=== PATIENT | male | born 1955 | race Hispanic/Latino ===

== ENCOUNTER 2017-09-12 14:37 | Inpatient (IN) | payer MEDICARE ==
[2017-09-12 16:16] LABS: BASO # 0.1 K/uL (0.0-0.2); BASO % 0.6 % (0.0-2.0); EOS # 0.2 K/uL (0.0-0.7); HEMOGLOBIN 15.3 g/dL (12.0-18.0); LYMPH # 0.9 K/uL (1.0-4.3); LYMPH % 10.5 % (20.0-40.0); MEAN CELL VOLUME 83.2 fl (80.0-94.0); MEAN CORPUSCULAR HEMOGLOBIN 27.5 pg (27.0-31.0); MEAN PLATELET VOLUME 9.5 fl (7.2-11.7); MONO # 1.2 K/uL (0.0-0.8); MONO % 13.1 % (0.0-10.0); NEUT # 6.5 K/uL (1.8-7.0); NEUT % 73.8 % (50.0-75.0); RBC 5.58 Mil/uL (4.40-5.90); RED CELL DISTRIBUTION WIDTH 21.5 % (11.5-14.5); WHITE BLOOD COUNT 8.8 K/uL (4.8-10.8)
--- NOTE | 2017-09-12 16:37 | ED PDOC ---
HPI: General Adult Time Seen by Provider: 09/12/17 14:40 Chief Complaint (Nursing): Weakness/Neurological Deficit Chief Complaint (Provider): Weakness History Per: Patient History/Exam Limitations: no limitations Onset/Duration Of Symptoms: Days (x1 week) Current Symptoms Are (Timing): Still Present Additional Complaint(s): 62 y/o male with a PMHx of hepatitis B, renal insuffieincy, blood clots dvt pe pn xarelto, with ?pafib, systolic failure (EF in past 39%), liver transplant , DVT, and chronic kidney disease presenting for evaluation of generalized weakness x1 week. Patient called 911 today because he couldnt get up from the toilet seat due to weakness. He denies syncope. Patient reports feeling weak and states its hard to move. He denies any vomiting, but reports mild dry cough , mild diarrhea, and decreased PO intake. Of note, patient was recently admitted to [facility] for CHF. pt denies cp or sob. the sob, he states is chronic. PMD: Dr Ley in [place] Past Medical History Reviewed: Historical Data Vital Signs: Last Vital Signs Temp 97.7 F 09/19/17 15:44 Pulse 56 L 09/19/17 15:49 Resp 20 09/19/17 15:44 BP 113/66 09/19/17 15:44 Pulse Ox 97 09/19/17 15:44 - Medical History PMH: CHF, Deep Vein Thrombosis, Hypercholesterolemia, Pulmonary Embolism, Chronic Kidney Disease Other PMH: Renal Insufficiency, Systolic Failure - Surgical History Other surgeries: Liver Transplant - Family History Family History: States: Unknown Family Hx - Social History Current smoker - smoking cessation education provided: No Alcohol: None Drugs: Denies - Home Medications Home Medications: Ambulatory Orders Medication Instructions Recorded Alprazolam [Xanax] 0.5 mg PO BID PRN 09/12/17 Atorvastatin [Lipitor] 10 mg PO HS 09/12/17 Entecavir [Baraclude] 0.5 mg PO Q48H 09/12/17 Isosorbide Mononitrate [Imdur] 60 mg PO DAILY 09/12/17 Ranitidine HCl [Zantac] 150 mg PO DAILY 09/12/17 Rivaroxaban [Xarelto] 15 mg PO HS 09/12/17 Tacrolimus [Prograf] 0.5 mg PO Q12 09/12/17 Torsemide [Demadex] 100 mg PO BID 09/12/17 Zolpidem [Ambien] 5 mg PO HS PRN 09/12/17 hydrALAZINE [Apresoline] 25 mg PO Q8 09/12/17 - Allergies Allergies/Adverse Reactions: Allergies Allergy/AdvReac Type Severity Reaction Status Date / Time No Known Allergies Allergy Verified 09/12/17 14:42 Review of Systems ROS Statement: Except As Marked, All Systems Reviewed And Found Negative Constitutional: Positive for: Weakness. Negative for: Fever Respiratory: Positive for: Cough. Negative for: Sputum Gastrointestinal: Positive for: Diarrhea. Negative for: Vomiting Physical Exam - Reviewed Nursing Documentation Reviewed: Yes Vital Signs Reviewed: Yes - Physical Exam Appears: Positive for: No Acute Distress (chronically ill appearing) Head Exam: Positive for: ATRAUMATIC, NORMAL INSPECTION, NORMOCEPHALIC Skin: Positive for: Normal Color, Warm, Dry. Negative for: Rash Eye Exam: Positive for: EOMI, Normal appearance, PERRL ENT: Positive for: Normal ENT Inspection Neck: Positive for: Normal, Painless ROM, Supple Cardiovascular/Chest: Positive for: Regular Rate, Rhythm. Negative for: Murmur Respiratory: Positive for: Decreased Breath Sounds, Crackles (slight). Negative for: Accessory Muscle Use, Respiratory Distress Gastrointestinal/Abdominal: Positive for: Bowel Sounds, Soft, Other (multiple abdominal scars). Negative for: Tenderness Back: Positive for: Normal Inspection. Negative for: L CVA Tenderness, R CVA Tenderness, Vertebral Tenderness Extremity: Positive for: Normal ROM. Negative for: Pedal Edema, Deformity Neurologic/Psych: Positive for: Alert, Oriented (x3). Negative for: Motor/ Sensory Deficits - Laboratory Results Result Diagrams: 09/18/17 04:00 09/18/17 05:15 - ECG O2 Sat by Pulse Oximetry: 94 (RA) Pulse Ox Interpretation: Normal - Critical Care Total Time (In Min): 45 Medical Decision Making Medical Decision Making: Plan: generalized weakness rule out electrlyte abnormality, rule out infection -BNP -EKG -CMP -Troponin I -CBC -CXR -Glucose, POC -Reevaluation EKG shows atrial flutter with slow ventricular response at 46 bpm 16:41 CXR FINDINGS: LUNGS: There is patient rotation to the right. The lungs are well inflated. There is an apparent opacity in the right pericardiac region. PLEURA: There is right pleural thickening. No significant left pleural effusion identified, no pneumothorax apparent. CARDIOVASCULAR: There is severe cardiomegaly. OSSEOUS STRUCTURES: No significant abnormalities. VISUALIZED UPPER ABDOMEN: Normal. OTHER FINDINGS: Air-fluid level in the right lower lobe could represent a large hiatal hernia. IMPRESSION: Limited portable examination with patient rotation to the right. No active pulmonary disease. Severe cardiomegaly. Apparent opacity in the right paracardiac region could represent a hiatal hernia however focal consolidation cannot be excluded. PA and lateral radiographs are recommended for further evaluation. 17:55 Labs reviewed and found significant for acute renal failure, initial potassium normal, elevated Troponin, elevated pro-BNP. Dr. Arriaga med service made aware of findings. -Renal consult -Cardiology consult repeat chemistry shows low Potassium. EKG shows afib at 46 bpm. 18:[address] Tovar, cardiology sales professional bilingual. Recommends patient be given aspirin and admitted to telemetry. 18:25 Upon review of old records, patient was discharged from [facility] on 08/25 and told to stop Lasix. Patient is currently on Xarelto. 18:[address] Barraza renal covering Dr Givens regarding case. states to give K with gentle hydration. Spoke to Dr. Martin. Requesting repeat vitals. Dr. Allen, covering Dr. Tovar, at patient's bedside. 19:[address] Martin water pump operator regarding case. he states pt not ICU candidate.Patient will be admitted to telemetry. 19:10 BUN/creatinine indicates patient is slightly dehydrated which is consistent with patient's history of decreased PO intake. pt aware of admission to telemetry. Scribe Attestation: Documented by Agus Mcfarland, acting as a scribe for Yari Huddleston MD. Provider Scribe Attestation: All medical record entries made by the Scribe were at my direction and personally dictated by me. I have reviewed the chart and agree that the record accurately reflects my personal performance of the history, physical exam, medical decision making, and the department course for this patient. I have also personally directed, reviewed, and agree with the discharge instructions and disposition. Disposition - Clinical Impression Clinical Impression: Generalized muscle weakness, Acute on chronic systolic (congestive) heart failure, Chronic kidney disease, stage IV (severe) - Patient ED Disposition Is Patient to be Admitted: Yes Counseled Patient/Family Regarding: Studies Performed, Diagnosis - Disposition Disposition Time: 18:05 Condition: STABLE - Pt Status Changed To: Hospital Disposition Of: Inpatient - Admit Certification Admit to Inpatient:: After my assessment, the patient will require hospitalization for at least two midnights. This is because of the severity of symptoms shown, intensity of services needed, and/or the medical risk in this patient being treated as an outpatient.
[2017-09-12 16:50] LABS: ALB/GLOB RATIO 1.1 (1.0-2.1); ALBUMIN 4.6 g/dL (3.5-5.0); CALCIUM 9.7 mg/dL (8.4-10.2); TROPONIN I 0.134 ng/mL (0.00-0.120)
--- NOTE | 2017-09-12 16:53 | RAD ---
Date of service: 09/12/2017 HISTORY: body pain COMPARISON: No prior. FINDINGS: LUNGS: There is patient rotation to the right. The lungs are well inflated. There is an apparent opacity in the right pericardiac region. PLEURA: There is right pleural thickening. No significant left pleural effusion identified, no pneumothorax apparent. CARDIOVASCULAR: There is severe cardiomegaly. OSSEOUS STRUCTURES: No significant abnormalities. VISUALIZED UPPER ABDOMEN: Normal. OTHER FINDINGS: Air-fluid level in the right lower lobe could represent a large hiatal hernia. IMPRESSION: Limited portable examination with patient rotation to the right. No active pulmonary disease. Severe cardiomegaly. Apparent opacity in the right paracardiac region could represent a hiatal hernia however focal consolidation cannot be excluded. PA and lateral radiographs are recommended for further evaluation.
[2017-09-12] MEDS ORDERED: Oxycodone/Acetaminophen 5/325 mg Tab PO ONE (17:16)
[2017-09-12 18:06] LABS: ALB/GLOB RATIO 1.1 (1.0-2.1); ALBUMIN 4.3 g/dL (3.5-5.0); CALCIUM 9.5 mg/dL (8.4-10.2)
[2017-09-12] MEDS ORDERED: Potassium Chloride 20 mEq ER Tab PO ONE ×2 (18:18→18:23)
[2017-09-12] MEDS ORDERED: Oxycodone/Acetaminophen 5/325 mg Tab ONE (18:21)
[2017-09-12 19:01] LABS: ABG ALLEN TEST YES; ARTERIAL BLOOD GAS O2 SAT 98.7 % (95-98); ARTERIAL BLOOD GAS PCO2 31 mm/Hg (35-45); ARTERIAL BLOOD GAS PH 7.55 (7.35-7.45); ARTERIAL BLOOD GAS PO2 75 mm/Hg (80-100); ARTERIAL BLOOD GAS TCO2 28.1 mmol/L (22-28)
[2017-09-12 19:31] LABS: SQUAMOUS EPITHIAL 1 /hpf (0-5); URINE BACTERIA FEW (<OCC); URINE BILIRUBIN NEGATIVE (NEGATIVE); URINE BLOOD NEGATIVE (NEGATIVE); URINE CLARITY SLIGHTY-CLOUDY (Clear); URINE COLOR YELLOW (YELLOW); URINE GLUCOSE (UA) NEG (Normal); URINE LEUKOCYTE ESTERASE NEG Leu/uL (Negative); URINE PROTEIN 30 mg/dL (NEGATIVE)
[2017-09-12] MEDS: KCL 40MEQ/NS 1L 1,000 ML IV SCH (20:06)
--- NOTE | 2017-09-12 20:15 | CP.PCM.CON ---
History of Present Illness - History of Present Illness History of Present Illness: Cardiology consult coverage for Dr Tovar Patient is a 62 year old male with PMH chronic systolic dysfunction (unknown EF , followed at [facility]), chronic renal failure, HTN, previous liver transplant who presents with dyspnea weakness. the patient had a recent prolonged hospital staty at [facility], and was discharged about 2 weeks ago. He developed progressive weakness, and was brought to the ER. He is dyspneic at rest. The patient is seen in the ER. he appears dyspneic at rest. Review of Systems - Constitutional Constitutional: Weakness - EENT Eyes: absent: As Per HPI, Blind Spots, Blurred Vision, Change in Vision, Decreased Night Vision, Diplopia, Discharge, Dry Eye, Exophthalmos, Floaters, Irritation, Itchy Eyes, Loss of Peripheral Vision, Pain, Photophobia, Requires Corrective Lenses, Sees Flashes, Spots in Vision, Tunnel Vision, Other Visual Disturbances, Loss of Vision, Other Ears: absent: As Per HPI, Decreased Hearing, Ear Discharge, Ear Pain, Tinnitus, Abnormal Hearing, Disequilibrium, Dizziness, Other Nose/Mouth/Throat: absent: As Per HPI, Epistaxis, Nasal Congestion, Nasal Discharge, Nasal Obstruction, Nasal Trauma, Nose Pain, Post Nasal Drip, Sinus Pain, Sinus Pressure, Bleeding Gums, Change in Voice, Dental Pain, Dry Mouth, Dysphagia, Halitosis, Hoarsness, Lip Swelling, Mouth Lesions, Mouth Pain, Odynophagia, Sore Throat, Throat Swelling, Tongue Swelling, Facial Pain, Neck Pain, Neck Mass, Other - Cardiovascular Cardiovascular: Dyspnea, Pedal Edema - Respiratory Respiratory: Dyspnea - Gastrointestinal Gastrointestinal: absent: As Per HPI, Abdominal Pain, Belching, Bloating, Change in Bowel Habits, Change in Stool Character, Coffee Ground Emesis, Constipation, Cramping, Diarrhea, Dyspepsia, Dysphagia, Early Satiety, Excessive Flatus, Fecal Incontinence, Heartburn, Hematemesis, Hematochezia, Loose Stools, Melena, Nausea, Odynophagia, Temesmus, Vomiting, Other - Genitourinary Genitourinary: absent: As Per HPI, Change in Urinary Stream, Difficulty Urinating, Dysuria, Flank Pain, Hematuria, Pyuria, Nocturia, Urinary Incontinence, Urinary Frequency, Urinary Hesitance, Urinary Urgency, Voiding Freq/Small Amts, Freq UTI, Hx Renal/Bladder Calculi, Hx /Renal Surgery, Bladder Distension, Other - Musculoskeletal Musculoskeletal: absent: As Per HPI, Abnormal Gait, Arthralgias, Atrophy, Back Pain, Deformity, Joint Swelling, Limited Range of Motion, Loss of Height, Muscle Cramps, Muscle Weakness, Myalgias, Neck Pain, Numbness, Radiating Pain into Limb, Stiffness, Tingling, Other - Integumentary Integumentary: absent: As Per HPI, Acne, Alopecia, Bleeding Lesions, Change in Hair, Change in Nails, Change in Pigmentation, Changing Lesions, Dry Skin, Erythema, Furuncle, Hirsutism, Lesions, New Lesions, Non-Healing Lesions, Photosensitivity, Pruritus, Rash, Skin Pain, Skin Ulcer, Sores, Striae, Swelling , Unusual Bruising, Wounds, Jaundice, Other - Neurological Neurological: absent: As Per HPI, Abnormal Gait, Abnormal Hearing, Abnormal Movements, Abnormal Speech, Behavioral Changes, Burning Sensations, Confusion, Convulsions, Disequilibrium, Dizziness, Numbness, Focal Weakness, Frequent Falls , Headaches, Lack of Coordination, Loss of Vision, Memory Loss, Paresthesias, Radicular Pain, Restless Legs, Sensory Deficit, Syncope, Tingling, Tremor, Vertigo, Weakness, Other Visual Disturbances, Other - Psychiatric Psychiatric: absent: As Per HPI, Abnormal Sleep Pattern, Anhedonia, Anxiety, Auditory Hallucinations, Behavioral Changes, Change in Appetite, Change in Libido, Confusion, Depression, Difficulty Concentrating, Hallucinations, Homicidal Ideation, Hopelessness, Irritability, Memory Loss, Mood Swings, Panic Attacks, Paranoia, Suicidal Ideation, Visual Hallucinations, Tactile Hallucinations, Other - Endocrine Endocrine: absent: As Per HPI, Change in Body Appearance, Change in Libido, Cold Intolorance, Deepening of Voice, Excessive Sweating, Fatigue, Flushing, Heat Intolorance, Increase in Ring/Shoe/Hat Size, Palpitations, Polydipsia, Polyphagia, Polyuria, Other - Hematologic/Lymphatic Hematologic: absent: As Per HPI, Easy Bleeding, Easy Bruising, Lymphadenopathy, Other Past Patient History - Past Social History Alcohol: None Drugs: Denies - CARDIAC Hx Cardiac Disorders: Yes - PULMONARY Hx Pulmonary Embolism: Yes - RENAL Hx Chronic Kidney Disease: Yes - HEMATOLOGICAL/ONCOLOGICAL Hx Hepatitis B: Yes Other/Comment: dvt - MUSCULOSKELETAL/RHEUMATOLOGICAL Hx Musculoskeletal Disorders: Yes - GASTROINTESTINAL Other/Comment: Hx liver transplant - GENITOURINARY/GYNECOLOGICAL Hx Genitourinary Disorders: Yes - PSYCHIATRIC Hx Substance Use: No - SURGICAL HISTORY Hx Liver Transplant: Yes (1998) - ANESTHESIA Hx Anesthesia: Yes Meds Allergies/Adverse Reactions: Allergies Allergy/AdvReac Type Severity Reaction Status Date / Time No Known Allergies Allergy Verified 09/12/17 14:42 - Medications Medications: Current Medications Oral Electrolytes (Kcl 40meq/ 0.9% 1l) 1,000 mls @ 75 mls/hr IV .[id number] SHAKIR Last Admin: 09/12/17 20:06 Dose: 75 mls/hr Physical Exam - Constitutional Appears: Chronically Ill - Head Exam Head Exam: NORMAL INSPECTION - Eye Exam Eye Exam: Normal appearance - ENT Exam ENT Exam: Mucous Membranes Dry - Neck Exam Neck exam: Negative for: Lymphadenopathy - Respiratory Exam Respiratory Exam: Decreased Breath Sounds - Cardiovascular Exam Cardiovascular Exam: Irregular Rhythm, JVD - GI/Abdominal Exam GI & Abdominal Exam: Diminished Bowel Sounds - Rectal Exam Rectal Exam: Deferred - Extremities Exam Extremities exam: Positive for: pedal edema - Back Exam Back exam: NORMAL INSPECTION - Neurological Exam Neurological exam: Alert, Oriented x3 - Psychiatric Exam Psychiatric exam: Normal Affect - Skin Skin Exam: Normal Color Results - Vital Signs Recent Vital Signs: Last Vital Signs Temp 97.5 F L 09/12/17 19:44 Pulse 53 L 09/12/17 19:44 Resp 18 09/12/17 19:44 BP 130/51 L 09/12/17 19:44 Pulse Ox 94 L 09/12/17 19:26 - Labs Result Diagrams: 09/12/17 16:00 09/12/17 16:59 Labs: Laboratory Results - last 24 hr 09/12/17 09/12/17 09/12/17 14:58 16:00 16:00 WBC 8.8 RBC 5.58 Hgb 15.3 Hct 46.4 MCV 83.2 MCH 27.5 MCHC 33.0 RDW 21.5 H Plt Count 226 MPV 9.5 Neut % (Auto) 73.8 Lymph % (Auto) 10.5 L [place] % (Auto) 13.1 H Eos % (Auto) 2.0 Baso % (Auto) 0.6 Neut # (Auto) 6.5 Lymph # (Auto) 0.9 L [place] # (Auto) 1.2 H Eos # (Auto) 0.2 Baso # (Auto) 0.1 pCO2 pO2 HCO3 ABG pH ABG Total CO2 ABG O2 Saturation ABG Base Excess Prudencio Test ABG Potassium A-a O2 Difference Glucose Lactate FiO2 Sodium 136 Potassium 3.8 Chloride 89 L Carbon Dioxide 25 Anion Gap 26 H BUN 172 H* Creatinine 3.7 H Est GFR ( Amer) 20 Est GFR (Non-Af Amer) 17 POC Glucose (mg/dL) 128 H Random Glucose 128 H Calcium 9.7 Total Bilirubin 3.2 H AST 54 ALT 27 Alkaline Phosphatase 319 H Troponin I 0.1340 H* NT-Pro-B Natriuret Pep 12670 H Total Protein 8.8 H Albumin 4.6 Globulin 4.2 H Albumin/Globulin Ratio 1.1 Arterial Blood Potassium Urine Color Urine Clarity Urine pH Ur Specific [place] Urine Protein Urine Glucose (UA) Urine Ketones Urine Blood Urine Nitrate Urine Bilirubin Urine Urobilinogen Ur Leukocyte Esterase Urine RBC (Auto) Urine Microscopic WBC Ur Squamous Epith Cells Urine Bacteria 09/12/17 09/12/17 09/12/17 16:59 18:58 19:00 WBC RBC Hgb Hct MCV MCH MCHC RDW Plt Count MPV Neut % (Auto) Lymph % (Auto) [place] % (Auto) Eos % (Auto) Baso % (Auto) Neut # (Auto) Lymph # (Auto) [place] # (Auto) Eos # (Auto) Baso # (Auto) pCO2 31 L pO2 75 L HCO3 29.0 H ABG pH 7.55 H ABG Total CO2 28.1 H ABG O2 Saturation 98.7 H ABG Base Excess 5.2 H Prudencio Test Yes ABG Potassium 2.6 L A-a O2 Difference 36.0 Glucose 130 H Lactate 1.1 FiO2 21.0 Sodium 136 132.0 Potassium 2.9 L Chloride 89 L 91.0 L Carbon Dioxide 25 Anion Gap 25 H BUN 165 H* Creatinine 4.1 H Est GFR ( Amer) 18 Est GFR (Non-Af Amer) 15 POC Glucose (mg/dL) Random Glucose 131 H Calcium 9.5 Total Bilirubin 2.9 H AST 43 ALT 28 Alkaline Phosphatase 337 H Troponin I NT-Pro-B Natriuret Pep Total Protein 8.3 H Albumin 4.3 Globulin 3.9 Albumin/Globulin Ratio 1.1 Arterial Blood Potassium 2.6 L Urine Color Yellow Urine Clarity Slighty-cloudy Urine pH 6.0 Ur Specific [place] 1.011 Urine Protein 30 Urine Glucose (UA) Neg Urine Ketones Negative Urine Blood Negative Urine Nitrate Negative Urine Bilirubin Negative Urine Urobilinogen 2.0 Ur Leukocyte Esterase Neg Urine RBC (Auto) < 1 Urine Microscopic WBC 2 Ur Squamous Epith Cells 1 Urine Bacteria Few H - EKG Data EKG Interpreted by: Myself Assessment & Plan (1) Acute on chronic systolic (congestive) heart failure Assessment and Plan: patient appears to have decompensated heart failure. he would benefit from inotropic support. I recommend dobu[place] drip at [facility] [place]. check echocardiogram renal consult consider transfer to [facility]. Status: Acute (2) Chronic atrial fibrillation Assessment and Plan: would stop Xarelto, can give heparin Status: Acute (3) Hypokalemia Assessment and Plan: replete K, but monitor given creatinine. Status: Acute
--- NOTE | 2017-09-12 23:02 | CP.CCUPN ---
CCU Subjective - Physician Review Subjective (Free Text): ICU Consultation: 59M with PMH HEp B, CKD, PE/ DVT, Liver transplantation 20 yrs ago, remains on immunosuppressive therapy, last known EF 39%, admitted today with c/o generalized weakness and progressive SOB at rest and BRIGGS. Denies any recent chest discomfort, dizziness, palpitations, diaphoresis, n/v, nor any recent fevers, chills, cough. In ER, noted to be bradycardic in AFib/Flutter with HR 46-50, initially hypotensive on the 1st set of vitals, but subsequently normotensive after repeat checks. He denies any recent dysuria, but mentions decreased urine output and was able to provide a urine sample in the ER. Patient states he was discharged from [facility] on 08/29 after hospitalization for CHF / "Fluid Retention." Other vitals and I/O's reviewed. No fever spikes nor any low grade temps noted. BP range for systolic has been 130-120's today, SPO2 95% on RA. ROS: No other pertinent negs or positives on 10+ system review PMSFH: All other Nursing and physician documentation reviewed to date; no new pertinent info noted relevant to current medical problems. Allergies: NKDA Home MEDS: Xanax, Lipitor, Baraclude, Apresoline, Imdur, Zantac, Xarelto, Prograf, Demedex, Ambien EXAM- HEENT: no icterus, no gaze preference, Pupils 3 mm and reactive. NECK: + JVD at 30 degrees, supple, carotids equal upstroke bilat/no bruits CHEST: decreased BS bases, no wheezes audible HEART: regular, distant, dinh S1S2, no rubs or murmurs ABD: soft, mild distention, no tympany, no palp tenderness, BS hypoactive EXT: + Bilat leg edema; no peripheral/ digital cyanosis, no calf tenderness or palpable cords, distal pulses intact and symmetrical. NEURO: no focal motor deficits SKIN: no rashes, warm and dry. LABS: 7.55/ 31 / 75 on RA Lactate= 1.1 WBC= 8.8 HGB= 15.3 PLTs= 226K Gj=598 K= 2.9 CL=89 HCO3= 25 BUN/Cr= 165/4.1 BS= 131 CXR: (my interp)- cardiomegaly with bibasilar haziness and effusions bilaterally, possible retrocardiac infiltrate with air b-gram. EKG: A fib 46/min with T inversions inferolateral leads with fusion beats (my interp). IMPRESSION / MAJOR PROBLEMS NOW: 1. Uremia with Acute on CKD with Hypokalemia, 2' Dehydration and recent Diuresis 2. R/o ischemic Cardiomyopathy / ACS / Subacute- Acute [place] 3. Acute Resp Insufficiency 2' decompensated Cardiomyopathy, r/o DDysfx. 4. Paroxysmal versus chronic A Fib, already on AC. 5. H/o DVT / PTE on AC. 6. h/o Liver Trsp on Immunosuppression, no clinical evidence of chronic rejection, nor suspicion for Sepsis/ Severe Sepsis. PLAN: 1. Cautious IVF hydration, ECHO for re-assessment of LVEF, and R heart function ; r/o Pericardial effusion. 2. Check Coags, hold Xarelto for now given present low CrCl voiding its use. 3. Serial Trops. 4. Consider CT Chest. 5. Does not appear to need acute [employer], cautious K supplementation, and IVFs. 6. If he fails to respond to treatment, transfer to ICU. 7. Contact [facility] PMD for possible acceptance there for further mgmt. CCU Objective - Vital Signs / Intake & Output Vital Signs (Last 4 hours): Vital Signs Temp Pulse Resp BP Pulse Ox 09/12/17 20:13 50 L 16 120/72 95 09/12/17 19:44 97.5 F L 53 L 18 130/51 L 09/12/17 19:26 94 L 09/12/17 18:49 97.5 F L 53 L 18 130/51 L 95 Intake and Output (Last 8hrs): Intake & Output 09/12/17 09/12/17 09/12/17 06:59 14:59 22:59 Weight 253 lb - Medications Active Medications: Active Medications Generic Name Dose Route Start Last Admin Trade Name Freq PRN Reason Stop Dose Admin Oral Electrolytes 1,000 mls @ 75 mls/hr 09/12/17 18:30 09/12/17 20:06 Kcl 40meq/ 0.9% 1l IV 75 mls/hr .[id number] SHAKIR Administration - Patient Studies Lab Studies: Lab Studies 09/12/17 09/12/17 09/12/17 Range/Units 19:00 18:58 16:59 WBC (4.8-10.8) K/uL RBC (4.40-5.90) Mil/uL Hgb (12.0-18.0) g/dL Hct (35.0-51.0) % MCV (80.0-94.0) fl MCH (27.0-31.0) pg MCHC (33.0-37.0) g/dL RDW (11.5-14.5) % Plt Count (130-400) K/uL MPV (7.2-11.7) fl Neut % (Auto) (50.0-75.0) % Lymph % (Auto) (20.0-40.0) % [place] % (Auto) (0.0-10.0) % Eos % (Auto) (0.0-4.0) % Baso % (Auto) (0.0-2.0) % Neut # (Auto) (1.8-7.0) K/uL Lymph # (Auto) (1.0-4.3) K/uL [place] # (Auto) (0.0-0.8) K/uL Eos # (Auto) (0.0-0.7) K/uL Baso # (Auto) (0.0-0.2) K/uL pCO2 31 L (35-45) mm/Hg pO2 75 L (80-100) mm/Hg HCO3 29.0 H (21-28) mmol/L ABG pH 7.55 H (7.35-7.45) ABG Total CO2 28.1 H (22-28) mmol/L ABG O2 Saturation 98.7 H (95-98) % ABG Base Excess 5.2 H (-2.0-3.0) mmol/L Prudencio Test Yes ABG Potassium 2.6 L (3.6-5.2) mmol/L A-a O2 Difference 36.0 mm/Hg Glucose 130 H (75-110) mg/dL Lactate 1.1 (0.7-2.1) mmol/L FiO2 21.0 % Sodium 132.0 136 (132-148) mmol/l Potassium 2.9 L (3.6-5.0) MMOL/L Chloride 91.0 L 89 L (98-107) mmol/L Carbon Dioxide 25 (22-30) mmol/L Anion Gap 25 H (10-20) BUN 165 H* (9-20) mg/dl Creatinine 4.1 H (0.8-1.5) mg/dl Est GFR ( Amer) 18 Est GFR (Non-Af Amer) 15 POC Glucose (mg/dL) (65-110) mg/dL Random Glucose 131 H (75-110) mg/dL Calcium 9.5 (8.4-10.2) mg/dL Total Bilirubin 2.9 H (0.2-1.3) mg/dl AST 43 (17-59) U/L ALT 28 (21-72) U/L Alkaline Phosphatase 337 H (38-126) U/L Troponin I (0.00-0.120) ng/mL NT-Pro-B Natriuret Pep (0-900) pg/ml Total Protein 8.3 H (6.3-8.2) G/DL Albumin 4.3 (3.5-5.0) g/dL Globulin 3.9 (2.2-3.9) gm/dL Albumin/Globulin Ratio 1.1 (1.0-2.1) Arterial Blood Potassium 2.6 L (3.6-5.2) mmol/L Urine Color Yellow (YELLOW) Urine Clarity Slighty-cloudy (Clear) Urine pH 6.0 (5.0-8.0) Ur Specific [place] 1.011 (1.003-1.030) Urine Protein 30 (NEGATIVE) mg/dL Urine Glucose (UA) Neg (Normal) mg/dL Urine Ketones Negative (NEGATIVE) mg/dL Urine Blood Negative (NEGATIVE) Urine Nitrate Negative (NEGATIVE) Urine Bilirubin Negative (NEGATIVE) Urine Urobilinogen 2.0 (0.2-1.0) mg/dL Ur Leukocyte Esterase Neg (Negative) [place]/uL Urine RBC (Auto) < 1 (0-3) /hpf Urine Microscopic WBC 2 (0-5) /hpf Ur Squamous Epith Cells 1 (0-5) /hpf Urine Bacteria Few H (<OCC) 09/12/17 09/12/17 09/12/17 Range/Units 16:00 16:00 14:58 WBC 8.8 (4.8-10.8) K/uL RBC 5.58 (4.40-5.90) Mil/uL Hgb 15.3 (12.0-18.0) g/dL Hct 46.4 (35.0-51.0) % MCV 83.2 (80.0-94.0) fl MCH 27.5 (27.0-31.0) pg MCHC 33.0 (33.0-37.0) g/dL RDW 21.5 H (11.5-14.5) % Plt Count 226 (130-400) K/uL MPV 9.5 (7.2-11.7) fl Neut % (Auto) 73.8 (50.0-75.0) % Lymph % (Auto) 10.5 L (20.0-40.0) % [place] % (Auto) 13.1 H (0.0-10.0) % Eos % (Auto) 2.0 (0.0-4.0) % Baso % (Auto) 0.6 (0.0-2.0) % Neut # (Auto) 6.5 (1.8-7.0) K/uL Lymph # (Auto) 0.9 L (1.0-4.3) K/uL [place] # (Auto) 1.2 H (0.0-0.8) K/uL Eos # (Auto) 0.2 (0.0-0.7) K/uL Baso # (Auto) 0.1 (0.0-0.2) K/uL pCO2 (35-45) mm/Hg pO2 (80-100) mm/Hg HCO3 (21-28) mmol/L ABG pH (7.35-7.45) ABG Total CO2 (22-28) mmol/L ABG O2 Saturation (95-98) % ABG Base Excess (-2.0-3.0) mmol/L Prudencio Test ABG Potassium (3.6-5.2) mmol/L A-a O2 Difference mm/Hg Glucose (75-110) mg/dL Lactate (0.7-2.1) mmol/L FiO2 % Sodium 136 (132-148) mmol/l Potassium 3.8 (3.6-5.0) MMOL/L Chloride 89 L (98-107) mmol/L Carbon Dioxide 25 (22-30) mmol/L Anion Gap 26 H (10-20) BUN 172 H* (9-20) mg/dl Creatinine 3.7 H (0.8-1.5) mg/dl Est GFR ( Amer) 20 Est GFR (Non-Af Amer) 17 POC Glucose (mg/dL) 128 H (65-110) mg/dL Random Glucose 128 H (75-110) mg/dL Calcium 9.7 (8.4-10.2) mg/dL Total Bilirubin 3.2 H (0.2-1.3) mg/dl AST 54 (17-59) U/L ALT 27 (21-72) U/L Alkaline Phosphatase 319 H (38-126) U/L Troponin I 0.1340 H* (0.00-0.120) ng/mL NT-Pro-B Natriuret Pep 54338 H (0-900) pg/ml Total Protein 8.8 H (6.3-8.2) G/DL Albumin 4.6 (3.5-5.0) g/dL Globulin 4.2 H (2.2-3.9) gm/dL Albumin/Globulin Ratio 1.1 (1.0-2.1) Arterial Blood Potassium (3.6-5.2) mmol/L Urine Color (YELLOW) Urine Clarity (Clear) Urine pH (5.0-8.0) Ur Specific [place] (1.003-1.030) Urine Protein (NEGATIVE) mg/dL Urine Glucose (UA) (Normal) mg/dL Urine Ketones (NEGATIVE) mg/dL Urine Blood (NEGATIVE) Urine Nitrate (NEGATIVE) Urine Bilirubin (NEGATIVE) Urine Urobilinogen (0.2-1.0) mg/dL Ur Leukocyte Esterase (Negative) [place]/uL Urine RBC (Auto) (0-3) /hpf Urine Microscopic WBC (0-5) /hpf Ur Squamous Epith Cells (0-5) /hpf Urine Bacteria (<OCC) Laboratory Results - last 24 hr 09/12/17 09/12/17 09/12/17 14:58 16:00 16:00 WBC 8.8 RBC 5.58 Hgb 15.3 Hct 46.4 MCV 83.2 MCH 27.5 MCHC 33.0 RDW 21.5 H Plt Count 226 MPV 9.5 Neut % (Auto) 73.8 Lymph % (Auto) 10.5 L [place] % (Auto) 13.1 H Eos % (Auto) 2.0 Baso % (Auto) 0.6 Neut # (Auto) 6.5 Lymph # (Auto) 0.9 L [place] # (Auto) 1.2 H Eos # (Auto) 0.2 Baso # (Auto) 0.1 pCO2 pO2 HCO3 ABG pH ABG Total CO2 ABG O2 Saturation ABG Base Excess Prudencio Test ABG Potassium A-a O2 Difference Glucose Lactate FiO2 Sodium 136 Potassium 3.8 Chloride 89 L Carbon Dioxide 25 Anion Gap 26 H BUN 172 H* Creatinine 3.7 H Est GFR ( Amer) 20 Est GFR (Non-Af Amer) 17 POC Glucose (mg/dL) 128 H Random Glucose 128 H Calcium 9.7 Total Bilirubin 3.2 H AST 54 ALT 27 Alkaline Phosphatase 319 H Troponin I 0.1340 H* NT-Pro-B Natriuret Pep 38429 H Total Protein 8.8 H Albumin 4.6 Globulin 4.2 H Albumin/Globulin Ratio 1.1 Arterial Blood Potassium Urine Color Urine Clarity Urine pH Ur Specific [place] Urine Protein Urine Glucose (UA) Urine Ketones Urine Blood Urine Nitrate Urine Bilirubin Urine Urobilinogen Ur Leukocyte Esterase Urine RBC (Auto) Urine Microscopic WBC Ur Squamous Epith Cells Urine Bacteria 09/12/17 09/12/17 09/12/17 16:59 18:58 19:00 WBC RBC Hgb Hct MCV MCH MCHC RDW Plt Count MPV Neut % (Auto) Lymph % (Auto) [place] % (Auto) Eos % (Auto) Baso % (Auto) Neut # (Auto) Lymph # (Auto) [place] # (Auto) Eos # (Auto) Baso # (Auto) pCO2 31 L pO2 75 L HCO3 29.0 H ABG pH 7.55 H ABG Total CO2 28.1 H ABG O2 Saturation 98.7 H ABG Base Excess 5.2 H Prudencio Test Yes ABG Potassium 2.6 L A-a O2 Difference 36.0 Glucose 130 H Lactate 1.1 FiO2 21.0 Sodium 136 132.0 Potassium 2.9 L Chloride 89 L 91.0 L Carbon Dioxide 25 Anion Gap 25 H BUN 165 H* Creatinine 4.1 H Est GFR ( Amer) 18 Est GFR (Non-Af Amer) 15 POC Glucose (mg/dL) Random Glucose 131 H Calcium 9.5 Total Bilirubin 2.9 H AST 43 ALT 28 Alkaline Phosphatase 337 H Troponin I NT-Pro-B Natriuret Pep Total Protein 8.3 H Albumin 4.3 Globulin 3.9 Albumin/Globulin Ratio 1.1 Arterial Blood Potassium 2.6 L Urine Color Yellow Urine Clarity Slighty-cloudy Urine pH 6.0 Ur Specific [place] 1.011 Urine Protein 30 Urine Glucose (UA) Neg Urine Ketones Negative Urine Blood Negative Urine Nitrate Negative Urine Bilirubin Negative Urine Urobilinogen 2.0 Ur Leukocyte Esterase Neg Urine RBC (Auto) < 1 Urine Microscopic WBC 2 Ur Squamous Epith Cells 1 Urine Bacteria Few H Fingerstick Blood Sugar Results: 128
[2017-09-13] MEDS: DOBUTamine 500mg/250ml D5W 500 MG/250 ML BAG IV SCH ×2 (03:53→14:09)
[2017-09-13 08:44] VITALS: BMI 30.2
[2017-09-13 08:47] LABS: BASO % 0.5 % (0.0-2.0); EOS # 0.1 K/uL (0.0-0.7); EOS % 1.3 % (0.0-4.0); HEMOGLOBIN 13.6 g/dL (12.0-18.0); LYMPH # 0.8 K/uL (1.0-4.3); LYMPH % 10.4 % (20.0-40.0); MEAN CORPUSCULAR HEMOGLOBIN 27.9 pg (27.0-31.0); MEAN PLATELET VOLUME 9.2 fl (7.2-11.7); MONO # 0.9 K/uL (0.0-0.8); MONO % 11.8 % (0.0-10.0); NRBC % 0.1 % (0.0-0.0); RBC 4.86 Mil/uL (4.40-5.90); RED CELL DISTRIBUTION WIDTH 21.3 % (11.5-14.5)
[2017-09-13 08:50] LABS: INR 1.2 (0.9-1.2); PARTIAL THROMBOPLASTIN TIME 34.1 Seconds (25.6-37.1); PROTHROMBIN TIME 13.4 Seconds (9.8-13.1)
--- NOTE | 2017-09-13 08:52 | RAD ---
Date of service: 09/13/2017 HISTORY: f/u CHF vs PNA COMPARISON: Portable chest 09/12/2017 FINDINGS: LUNGS: No interval airspace disease appreciated bilaterally. PLEURA: No pneumothorax bilaterally or left pleural effusion. Right pleural thickening is again appreciated with trace right pleural effusion difficult to completely exclude. Fibrosis favored blunting the right costophrenic sulcus. CARDIOVASCULAR: Cardiomegaly is reiterated. No pulmonary vascular congestion apparent. OSSEOUS STRUCTURES: No significant abnormalities. VISUALIZED UPPER ABDOMEN: Normal. OTHER FINDINGS: Previously described right basilar air-fluid level is not identified. IMPRESSION: Stable cardiomegaly and right pleural fibrosis pattern. No alveolar infiltrate or prominent pleural effusion evident. Trace underlying right basilar pleural effusion difficult to completely exclude.
[2017-09-13] MEDS: KCL 40MEQ/NS 1L 1,000 ML IV SCH ×2 (09:00→20:57)
[2017-09-13 09:09] LABS: ALB/GLOB RATIO 1.1 (1.0-2.1); CALCIUM 9.7 mg/dL (8.4-10.2)
[2017-09-13 09:16] LABS: TROPONIN I 0.122 ng/mL (0.00-0.120)
--- NOTE | 2017-09-13 09:23 | CP.PCM.HP ---
History of Present Illness - History of Present Illness History of Present Illness: 62 YR OLD MALE ADMITTED BECAUSE OF SHORTNESS OF BREATH,EXERCISE INTOLERANCE AND PEDAL EDEMA X SEVERAL DAYS.HE WAS RECENTLY D/[facility]YELA FROM [facility] 2 WEEKS AGO AFTER THERAPY FOR SIMILAR PROBLEMS. HE HAS A HISTOY OF CARDIOMYOPATHY,CHF,S/P LIVER TRANSPLANT,ESRD[REFUSED DIALYSIS ],DVT/PULMONARY EMBOLI AND ATRIAL FIB/FLUTTER ON HOME OXYGEN Present on Admission - Present on Admission Any Indicators Present on Admission: Yes Past Patient History - Past Social History Smoking Status: Former Smoker - CARDIAC Hx Cardiac Disorders: Yes - PULMONARY Hx Pulmonary Embolism: Yes - HEENT Hx Deafness: Yes (left ear) - RENAL Hx Chronic Kidney Disease: Yes Hx Renal Failure: Yes - HEMATOLOGICAL/ONCOLOGICAL Hx Hepatitis B: Yes Other/Comment: dvt - MUSCULOSKELETAL/RHEUMATOLOGICAL Hx Musculoskeletal Disorders: Yes Hx Falls: No - GASTROINTESTINAL Other/Comment: Hx liver transplant - GENITOURINARY/GYNECOLOGICAL Hx Genitourinary Disorders: Yes - PSYCHIATRIC Hx Substance Use: No - SURGICAL HISTORY Hx Liver Transplant: Yes (1998) Other/Comment: brain surgery 1984 - ANESTHESIA Hx Anesthesia: Yes Hx Anesthesia Reactions: No Meds Allergies/Adverse Reactions: Allergies Allergy/AdvReac Type Severity Reaction Status Date / Time No Known Allergies Allergy Verified 09/12/17 14:42 Physical Exam - Constitutional Appears: In Acute Distress, Chronically Ill - Head Exam Head Exam: ATRAUMATIC, NORMAL INSPECTION, NORMOCEPHALIC - Eye Exam Eye Exam: EOMI, Normal appearance, PERRL Pupil Exam: NORMAL ACCOMODATION, PERRL - ENT Exam ENT Exam: Mucous Membranes Moist, Normal Exam - Neck Exam Neck exam: Positive for: Normal Inspection - Respiratory Exam Respiratory Exam: Decreased Breath Sounds, Prolonged Expiratory Phase, Rales Additional comments: ON OXYGEN - Cardiovascular Exam Cardiovascular Exam: Bradycardia, Irregular Rhythm - GI/Abdominal Exam GI & Abdominal Exam: Normal Bowel Sounds, Soft. absent: Tenderness - Rectal Exam Rectal Exam: NORMAL INSPECTION - Exam Bimanual exam: NORMAL BIMANUAL EXAM - Extremities Exam Extremities exam: Positive for: pedal edema - Back Exam Back exam: NORMAL INSPECTION - Neurological Exam Neurological exam: Alert, CN II-XII Intact, Normal Gait, Oriented x3, Reflexes Normal - Psychiatric Exam Psychiatric exam: Normal Affect, Normal Mood - Skin Skin Exam: Dry, Intact, Normal Color, Warm Results - Vital Signs Recent Vital Signs: Last Vital Signs Temp 97.3 F L 09/13/17 08:48 Pulse 60 09/13/17 08:48 Resp 20 09/13/17 08:48 BP 146/75 09/13/17 08:48 Pulse Ox 100 09/13/17 08:48 - Labs Result Diagrams: 09/13/17 08:10 09/13/17 08:10 Labs: Laboratory Results - last 24 hr 09/12/17 09/12/17 09/12/17 14:58 16:00 16:00 WBC 8.8 RBC 5.58 Hgb 15.3 Hct 46.4 MCV 83.2 MCH 27.5 MCHC 33.0 RDW 21.5 H Plt Count 226 MPV 9.5 Neut % (Auto) 73.8 Lymph % (Auto) 10.5 L [place] % (Auto) 13.1 H Eos % (Auto) 2.0 Baso % (Auto) 0.6 Neut # (Auto) 6.5 Lymph # (Auto) 0.9 L [place] # (Auto) 1.2 H Eos # (Auto) 0.2 Baso # (Auto) 0.1 PT INR APTT pCO2 pO2 HCO3 ABG pH ABG Total CO2 ABG O2 Saturation ABG Base Excess Prudencio Test ABG Potassium A-a O2 Difference Glucose Lactate FiO2 Sodium 136 Potassium 3.8 Chloride 89 L Carbon Dioxide 25 Anion Gap 26 H BUN 172 H* Creatinine 3.7 H Est GFR ( Amer) 20 Est GFR (Non-Af Amer) 17 POC Glucose (mg/dL) 128 H Random Glucose 128 H Calcium 9.7 Total Bilirubin 3.2 H AST 54 ALT 27 Alkaline Phosphatase 319 H Troponin I 0.1340 H* NT-Pro-B Natriuret Pep 59100 H Total Protein 8.8 H Albumin 4.6 Globulin 4.2 H Albumin/Globulin Ratio 1.1 Arterial Blood Potassium Urine Color Urine Clarity Urine pH Ur Specific [place] Urine Protein Urine Glucose (UA) Urine Ketones Urine Blood Urine Nitrate Urine Bilirubin Urine Urobilinogen Ur Leukocyte Esterase Urine RBC (Auto) Urine Microscopic WBC Ur Squamous Epith Cells Urine Bacteria 09/12/17 09/12/17 09/12/17 16:59 18:58 19:00 WBC RBC Hgb Hct MCV MCH MCHC RDW Plt Count MPV Neut % (Auto) Lymph % (Auto) [place] % (Auto) Eos % (Auto) Baso % (Auto) Neut # (Auto) Lymph # (Auto) [place] # (Auto) Eos # (Auto) Baso # (Auto) PT INR APTT pCO2 31 L pO2 75 L HCO3 29.0 H ABG pH 7.55 H ABG Total CO2 28.1 H ABG O2 Saturation 98.7 H ABG Base Excess 5.2 H Prudencio Test Yes ABG Potassium 2.6 L A-a O2 Difference 36.0 Glucose 130 H Lactate 1.1 FiO2 21.0 Sodium 136 132.0 Potassium 2.9 L Chloride 89 L 91.0 L Carbon Dioxide 25 Anion Gap 25 H BUN 165 H* Creatinine 4.1 H Est GFR ( Amer) 18 Est GFR (Non-Af Amer) 15 POC Glucose (mg/dL) Random Glucose 131 H Calcium 9.5 Total Bilirubin 2.9 H AST 43 ALT 28 Alkaline Phosphatase 337 H Troponin I NT-Pro-B Natriuret Pep Total Protein 8.3 H Albumin 4.3 Globulin 3.9 Albumin/Globulin Ratio 1.1 Arterial Blood Potassium 2.6 L Urine Color Yellow Urine Clarity Slighty-cloudy Urine pH 6.0 Ur Specific [place] 1.011 Urine Protein 30 Urine Glucose (UA) Neg Urine Ketones Negative Urine Blood Negative Urine Nitrate Negative Urine Bilirubin Negative Urine Urobilinogen 2.0 Ur Leukocyte Esterase Neg Urine RBC (Auto) < 1 Urine Microscopic WBC 2 Ur Squamous Epith Cells 1 Urine Bacteria Few H 09/13/17 09/13/17 09/13/17 08:10 08:10 08:10 WBC 8.0 RBC 4.86 Hgb 13.6 Hct 39.9 MCV 82.0 MCH 27.9 MCHC 34.0 RDW 21.3 H Plt Count 222 MPV 9.2 Neut % (Auto) 76.0 H Lymph % (Auto) 10.4 L [place] % (Auto) 11.8 H Eos % (Auto) 1.3 Baso % (Auto) 0.5 Neut # (Auto) 6.0 Lymph # (Auto) 0.8 L [place] # (Auto) 0.9 H Eos # (Auto) 0.1 Baso # (Auto) 0.0 PT 13.4 H INR 1.2 APTT 34.1 pCO2 pO2 HCO3 ABG pH ABG Total CO2 ABG O2 Saturation ABG Base Excess Prudencio Test ABG Potassium A-a O2 Difference Glucose Lactate FiO2 Sodium 139 Potassium 3.0 L Chloride 94 L Carbon Dioxide 23 Anion Gap 25 H BUN 164 H* Creatinine 4.0 H Est GFR ( Amer) 18 Est GFR (Non-Af Amer) 15 POC Glucose (mg/dL) Random Glucose 107 Calcium 9.7 Total Bilirubin 2.8 H AST 38 ALT 29 Alkaline Phosphatase 310 H Troponin I 0.1220 H* NT-Pro-B Natriuret Pep Total Protein 7.8 Albumin 4.0 Globulin 3.7 Albumin/Globulin Ratio 1.1 Arterial Blood Potassium Urine Color Urine Clarity Urine pH Ur Specific [place] Urine Protein Urine Glucose (UA) Urine Ketones Urine Blood Urine Nitrate Urine Bilirubin Urine Urobilinogen Ur Leukocyte Esterase Urine RBC (Auto) Urine Microscopic WBC Ur Squamous Epith Cells Urine Bacteria Assessment & Plan - Assessment and Plan (Free Text) Assessment: ACUTE CHF--DIASTOLIC AND SYSTOLIC DYSFUNCTION RESPIRATORY INSUFFICIENCY CARDIOMYOPATHY CHRONIC RENAL DISEASE HYPOKALEMIA S/P LIVER TRANSPLANT CARDIAC ARRYTHMIAS NO EVIDENCE OF INFECTION AT PRESENT Plan: CONTINUE RX ORDERED NEPHROLOGY EVAL RE-DIALYSIS AND THERAPY FOR RENAL FAILURE CARDIOLOGY EVAL K+SUPPLEMENTS DIURESES PROGNOSIS IS EXTREMELY GUARDED
--- NOTE | 2017-09-13 10:36 | CP.PCM.CON ---
History of Present Illness - History of Present Illness History of Present Illness: patient is a 62 years of age male was called to see him for abnormal kidney function. Patient came to the emergency room complaining of shortness of breath difficulty breathing and the patient has complicated medical history related to liver transplant approximately 18 years ago and history of chronic kidney disease. History of chronic atrial fibrillationflutter With history of congestive heart failure. Patient was recently in [facility] just about 2 weeks ago he was told that he need dialysis and the patient declined Patient complaining of shortness of breath also complaining of leg edema at the same time no chest pain Past medical and surgical history as above Chronic kidney disease stage IV to 5, liver transplant congestive cardiomyopathy chronic atrial fibrillationflutter social history not contributory Review of Systems - Review of Systems Systems not reviewed;Unavailable: Respiratory Distress - Constitutional Constitutional: Anorexia. absent: Chills - Cardiovascular Cardiovascular: Dyspnea, Edema. absent: Chest Pain - Respiratory Respiratory: Dyspnea, Chest Congestion. absent: Hemoptysis - Gastrointestinal Gastrointestinal: absent: Abdominal Pain - Genitourinary Genitourinary: Nocturia - Musculoskeletal Musculoskeletal: Muscle Weakness. absent: Back Pain, Numbness - Neurological Neurological: absent: Confusion, Disequilibrium, Focal Weakness - Endocrine Endocrine: Fatigue Past Patient History - Past Social History Smoking Status: Former Smoker - CARDIAC Hx Cardiac Disorders: Yes - PULMONARY Hx Pulmonary Embolism: Yes - HEENT Hx Deafness: Yes (left ear) - RENAL Hx Chronic Kidney Disease: Yes Hx Renal Failure: Yes - HEMATOLOGICAL/ONCOLOGICAL Hx Hepatitis B: Yes Other/Comment: dvt - MUSCULOSKELETAL/RHEUMATOLOGICAL Hx Musculoskeletal Disorders: Yes Hx Falls: No - GASTROINTESTINAL Other/Comment: Hx liver transplant - GENITOURINARY/GYNECOLOGICAL Hx Genitourinary Disorders: Yes - PSYCHIATRIC Hx Substance Use: No - SURGICAL HISTORY Hx Liver Transplant: Yes (1998) Other/Comment: brain surgery 1984 - ANESTHESIA Hx Anesthesia: Yes Hx Anesthesia Reactions: No Meds Allergies/Adverse Reactions: Allergies Allergy/AdvReac Type Severity Reaction Status Date / Time No Known Allergies Allergy Verified 09/12/17 14:42 - Medications Medications: Current Medications Alprazolam (Xanax) 0.5 mg PO BID PRN PRN Reason: Agitation Famotidine (Pepcid) 20 mg PO DAILY [facility] Last Admin: 09/13/17 08:59 Dose: 20 mg Heparin Sodium (Porcine) (Heparin) 5,000 units SC Q12 SHAKIR PRN Reason: Protocol Last Admin: 09/13/17 08:59 Dose: 5,000 units Oral Electrolytes (Kcl 40meq/ 0.9% 1l) 1,000 mls @ 75 mls/hr IV .[id number] SHAKIR Last Admin: 09/13/17 09:00 Dose: 75 mls/hr Dobutamine HCl/Dextrose (Dobutamine/Dextrose 5% 500mg/250ml) 500 mg in 250 mls @ 17.214 mls/hr IV .[id number] SHAKIR PRN Reason: 5 MCG/KG/MIN Last Admin: 09/13/17 03:53 Dose: 17.214 mls/hr Potassium Chloride (Potassium Chloride 20 Meq/100 Ml) 100 mls @ 50 mls/hr IVPB Q2 SHAKIR Stop: 09/13/17 15:59 Zolpidem Tartrate (Ambien) 5 mg PO HS PRN PRN Reason: Insomnia Physical Exam - Constitutional Appears: No Acute Distress - Eye Exam Eye Exam: Conjunctival injection - ENT Exam ENT Exam: Mucous Membranes Moist - Neck Exam Neck exam: Negative for: Lymphadenopathy - Respiratory Exam Respiratory Exam: Rales, Rhonchi. absent: Chest Wall Tenderness - Cardiovascular Exam Cardiovascular Exam: Irregular Rhythm. absent: Gallop, Rubs - GI/Abdominal Exam GI & Abdominal Exam: Normal Bowel Sounds. absent: Guarding - Extremities Exam Extremities exam: Negative for: calf tenderness - Back Exam Back exam: absent: CVA tenderness (L), CVA tenderness (R) - Neurological Exam Neurological exam: Alert - Psychiatric Exam Psychiatric exam: Normal Affect Results - Vital Signs Recent Vital Signs: Last Vital Signs Temp 97.3 F L 09/13/17 08:48 Pulse 60 09/13/17 08:48 Resp 20 09/13/17 08:48 BP 146/75 09/13/17 08:48 Pulse Ox 100 09/13/17 08:48 - Labs Result Diagrams: 09/13/17 08:10 09/13/17 08:10 Labs: Laboratory Results - last 24 hr 09/12/17 09/12/17 09/12/17 14:58 16:00 16:00 WBC 8.8 RBC 5.58 Hgb 15.3 Hct 46.4 MCV 83.2 MCH 27.5 MCHC 33.0 RDW 21.5 H Plt Count 226 MPV 9.5 Neut % (Auto) 73.8 Lymph % (Auto) 10.5 L [place] % (Auto) 13.1 H Eos % (Auto) 2.0 Baso % (Auto) 0.6 Neut # (Auto) 6.5 Lymph # (Auto) 0.9 L [place] # (Auto) 1.2 H Eos # (Auto) 0.2 Baso # (Auto) 0.1 PT INR APTT pCO2 pO2 HCO3 ABG pH ABG Total CO2 ABG O2 Saturation ABG Base Excess Prudencio Test ABG Potassium A-a O2 Difference Glucose Lactate FiO2 Sodium 136 Potassium 3.8 Chloride 89 L Carbon Dioxide 25 Anion Gap 26 H BUN 172 H* Creatinine 3.7 H Est GFR ( Amer) 20 Est GFR (Non-Af Amer) 17 POC Glucose (mg/dL) 128 H Random Glucose 128 H Calcium 9.7 Total Bilirubin 3.2 H AST 54 ALT 27 Alkaline Phosphatase 319 H Troponin I 0.1340 H* NT-Pro-B Natriuret Pep 56316 H Total Protein 8.8 H Albumin 4.6 Globulin 4.2 H Albumin/Globulin Ratio 1.1 Arterial Blood Potassium Urine Color Urine Clarity Urine pH Ur Specific [place] Urine Protein Urine Glucose (UA) Urine Ketones Urine Blood Urine Nitrate Urine Bilirubin Urine Urobilinogen Ur Leukocyte Esterase Urine RBC (Auto) Urine Microscopic WBC Ur Squamous Epith Cells Urine Bacteria 09/12/17 09/12/17 09/12/17 16:59 18:58 19:00 WBC RBC Hgb Hct MCV MCH MCHC RDW Plt Count MPV Neut % (Auto) Lymph % (Auto) [place] % (Auto) Eos % (Auto) Baso % (Auto) Neut # (Auto) Lymph # (Auto) [place] # (Auto) Eos # (Auto) Baso # (Auto) PT INR APTT pCO2 31 L pO2 75 L HCO3 29.0 H ABG pH 7.55 H ABG Total CO2 28.1 H ABG O2 Saturation 98.7 H ABG Base Excess 5.2 H Prudencio Test Yes ABG Potassium 2.6 L A-a O2 Difference 36.0 Glucose 130 H Lactate 1.1 FiO2 21.0 Sodium 136 132.0 Potassium 2.9 L Chloride 89 L 91.0 L Carbon Dioxide 25 Anion Gap 25 H BUN 165 H* Creatinine 4.1 H Est GFR ( Amer) 18 Est GFR (Non-Af Amer) 15 POC Glucose (mg/dL) Random Glucose 131 H Calcium 9.5 Total Bilirubin 2.9 H AST 43 ALT 28 Alkaline Phosphatase 337 H Troponin I NT-Pro-B Natriuret Pep Total Protein 8.3 H Albumin 4.3 Globulin 3.9 Albumin/Globulin Ratio 1.1 Arterial Blood Potassium 2.6 L Urine Color Yellow Urine Clarity Slighty-cloudy Urine pH 6.0 Ur Specific [place] 1.011 Urine Protein 30 Urine Glucose (UA) Neg Urine Ketones Negative Urine Blood Negative Urine Nitrate Negative Urine Bilirubin Negative Urine Urobilinogen 2.0 Ur Leukocyte Esterase Neg Urine RBC (Auto) < 1 Urine Microscopic WBC 2 Ur Squamous Epith Cells 1 Urine Bacteria Few H 09/13/17 09/13/17 09/13/17 08:10 08:10 08:10 WBC 8.0 RBC 4.86 Hgb 13.6 Hct 39.9 MCV 82.0 MCH 27.9 MCHC 34.0 RDW 21.3 H Plt Count 222 MPV 9.2 Neut % (Auto) 76.0 H Lymph % (Auto) 10.4 L [place] % (Auto) 11.8 H Eos % (Auto) 1.3 Baso % (Auto) 0.5 Neut # (Auto) 6.0 Lymph # (Auto) 0.8 L [place] # (Auto) 0.9 H Eos # (Auto) 0.1 Baso # (Auto) 0.0 PT 13.4 H INR 1.2 APTT 34.1 pCO2 pO2 HCO3 ABG pH ABG Total CO2 ABG O2 Saturation ABG Base Excess Prudencio Test ABG Potassium A-a O2 Difference Glucose Lactate FiO2 Sodium 139 Potassium 3.0 L Chloride 94 L Carbon Dioxide 23 Anion Gap 25 H BUN 164 H* Creatinine 4.0 H Est GFR ( Amer) 18 Est GFR (Non-Af Amer) 15 POC Glucose (mg/dL) Random Glucose 107 Calcium 9.7 Total Bilirubin 2.8 H AST 38 ALT 29 Alkaline Phosphatase 310 H Troponin I 0.1220 H* NT-Pro-B Natriuret Pep Total Protein 7.8 Albumin 4.0 Globulin 3.7 Albumin/Globulin Ratio 1.1 Arterial Blood Potassium Urine Color Urine Clarity Urine pH Ur Specific [place] Urine Protein Urine Glucose (UA) Urine Ketones Urine Blood Urine Nitrate Urine Bilirubin Urine Urobilinogen Ur Leukocyte Esterase Urine RBC (Auto) Urine Microscopic WBC Ur Squamous Epith Cells Urine Bacteria Assessment & Plan (1) Chronic kidney disease, stage V Assessment and Plan: #1 patient appeared to have a chronic kidney disease borderline is stage 5-4. Patient admitted with hyperkalemia #3 chronic congestive heart failure. With chronic irregular heartbeat atrial fibrillationflutter Abnormal high serum bilirubin Plan and discussion I discussed the condition with the patient for approximately 1 hour regarding the need for dialysis he declined at the present. In meantime patient to have potassium chloride replacement because of the hypokalemia. And I strongly suggested that he should be transferred back to [facility] where he has liver transplant and all his previous management to order serum phosphorus level and PTH and serum ammonia and serum magnesium Status: Acute (2) Liver transplant disorder Status: Acute (3) Acute on chronic systolic (congestive) heart failure Status: Acute (4) Chronic atrial fibrillation Status: Acute (5) Hypokalemia Status: Acute
[2017-09-13] MEDS: Potassium Chloride 20 mEq 100 ML IVPB SCH ×3 (10:42→14:10)
--- NOTE | 2017-09-13 12:26 | CARD ---
APPROVED REPORT Date of service: 09/13/2017 EKG Measurement Heart [id number] <Conclusion> Atrial fibrillation Possible Inferior infarct, age undetermined ST & T wave abnormality, consider lateral ischemia Prolonged QT Abnormal ECG
--- NOTE | 2017-09-13 12:45 | US ---
Date of service: 09/12/2017 PROCEDURE: Bilateral lower extremity venous duplex Doppler. HISTORY: Deep vein thrombosis suspected. Pertinent past medical history: Prior episodes of left lower extremity deep vein thrombosis. COMPARISON: None available. TECHNIQUE: Bilateral common femoral, superficial femoral, popliteal and posterior tibial veins were evaluated. Flow was assessed with color Doppler, compressibility, assessment of phasic flow and augmentation response. FINDINGS: COMMON FEMORAL VEIN: Right CFV: Unremarkable. Left CFV: Unremarkable. SUPERFICIAL FEMORAL VEIN: Right SFV: Unremarkable. Left SFV: Partially compressible. POPLITEAL VEIN: Right Popliteal: Unremarkable. Left Popliteal: Partially compressible. POSTERIOR TIBIAL VEIN: Right PTV: Unremarkable. Left PTV: Unremarkable. OTHER FINDINGS: None. IMPRESSION: No evidence of acute deep venous thrombosis. Ultrasound manifestations of chronic/old deep vein thrombosis left lower extremity confined to the superficial femoral vein.
--- NOTE | 2017-09-13 14:44 | CP.PCM.PCO ---
Assessment/Plan - Assessment and Plan (Free Text) Assessment: Patient seen and examined this afternoon VSS. pt on heparin and dobutamine drip. Denies chest pain, shortness of breath, nausea and vomiting. +Pedal edema. Discussed with patient whether he will transfer to [facility] for further medical management, patient still has not made up his mind yet. Discussed with Dr Arriaga, labs for the morning, cont medical management Will continue to monitor.
--- NOTE | 2017-09-13 15:12 | CP.PCM.CON ---
Past Patient History - Past Social History Smoking Status: Former Smoker - CARDIAC Hx Cardiac Disorders: Yes - PULMONARY Hx Pulmonary Embolism: Yes - HEENT Hx Deafness: Yes (left ear) - RENAL Hx Chronic Kidney Disease: Yes Hx Renal Failure: Yes - HEMATOLOGICAL/ONCOLOGICAL Hx Hepatitis B: Yes Other/Comment: dvt - MUSCULOSKELETAL/RHEUMATOLOGICAL Hx Musculoskeletal Disorders: Yes Hx Falls: No - GASTROINTESTINAL Other/Comment: Hx liver transplant - GENITOURINARY/GYNECOLOGICAL Hx Genitourinary Disorders: Yes - PSYCHIATRIC Hx Substance Use: No - SURGICAL HISTORY Hx Liver Transplant: Yes (1998) Other/Comment: brain surgery 1984 - ANESTHESIA Hx Anesthesia: Yes Hx Anesthesia Reactions: No Meds Allergies/Adverse Reactions: Allergies Allergy/AdvReac Type Severity Reaction Status Date / Time No Known Allergies Allergy Verified 09/12/17 14:42 - Medications Medications: Current Medications Alprazolam (Xanax) 0.5 mg PO BID PRN PRN Reason: Agitation Famotidine (Pepcid) 20 mg PO DAILY [facility] Last Admin: 09/13/17 08:59 Dose: 20 mg Heparin Sodium (Porcine) (Heparin) 5,000 units SC Q12 SHAKIR PRN Reason: Protocol Last Admin: 09/13/17 08:59 Dose: 5,000 units Oral Electrolytes (Kcl 40meq/ 0.9% 1l) 1,000 mls @ 75 mls/hr IV .[id number] [facility] Last Admin: 09/13/17 09:00 Dose: 75 mls/hr Dobutamine HCl/Dextrose (Dobutamine/Dextrose 5% 500mg/250ml) 500 mg in 250 mls @ 17.214 mls/hr IV .[id number] SHAKIR PRN Reason: 5 MCG/KG/MIN Last Admin: 09/13/17 14:09 Dose: 17.214 mls/hr Potassium Chloride (Potassium Chloride 20 Meq/100 Ml) 100 mls @ 50 mls/hr IVPB Q2 SHAKIR Stop: 09/13/17 15:59 Last Admin: 09/13/17 14:10 Dose: 50 mls/hr Zolpidem Tartrate (Ambien) 5 mg PO HS PRN PRN Reason: Insomnia Results - Vital Signs Recent Vital Signs: Last Vital Signs Temp 97.7 F 09/13/17 13:02 Pulse 45 L 09/13/17 14:09 Resp 20 09/13/17 13:02 BP 171/83 H 09/13/17 14:09 Pulse Ox 99 09/13/17 13:02 - Labs Result Diagrams: 09/13/17 08:10 09/13/17 08:10 Labs: Laboratory Results - last 24 hr 09/12/17 09/12/17 09/12/17 16:00 16:00 16:59 WBC 8.8 RBC 5.58 Hgb 15.3 Hct 46.4 MCV 83.2 MCH 27.5 MCHC 33.0 RDW 21.5 H Plt Count 226 MPV 9.5 Neut % (Auto) 73.8 Lymph % (Auto) 10.5 L [place] % (Auto) 13.1 H Eos % (Auto) 2.0 Baso % (Auto) 0.6 Neut # (Auto) 6.5 Lymph # (Auto) 0.9 L [place] # (Auto) 1.2 H Eos # (Auto) 0.2 Baso # (Auto) 0.1 PT INR APTT pCO2 pO2 HCO3 ABG pH ABG Total CO2 ABG O2 Saturation ABG Base Excess Prudencio Test ABG Potassium A-a O2 Difference Glucose Lactate FiO2 Sodium 136 136 Potassium 3.8 2.9 L Chloride 89 L 89 L Carbon Dioxide 25 25 Anion Gap 26 H 25 H BUN 172 H* 165 H* Creatinine 3.7 H 4.1 H Est GFR ( Amer) 20 18 Est GFR (Non-Af Amer) 17 15 Random Glucose 128 H 131 H Calcium 9.7 9.5 Phosphorus Magnesium Total Bilirubin 3.2 H 2.9 H AST 54 43 ALT 27 28 Alkaline Phosphatase 319 H 337 H Ammonia Troponin I 0.1340 H* NT-Pro-B Natriuret Pep 70216 H Total Protein 8.8 H 8.3 H Albumin 4.6 4.3 Globulin 4.2 H 3.9 Albumin/Globulin Ratio 1.1 1.1 Arterial Blood Potassium Urine Color Urine Clarity Urine pH Ur Specific [place] Urine Protein Urine Glucose (UA) Urine Ketones Urine Blood Urine Nitrate Urine Bilirubin Urine Urobilinogen Ur Leukocyte Esterase Urine RBC (Auto) Urine Microscopic WBC Ur Squamous Epith Cells Urine Bacteria 09/12/17 09/12/17 09/13/17 18:58 19:00 08:10 WBC 8.0 RBC 4.86 Hgb 13.6 Hct 39.9 MCV 82.0 MCH 27.9 MCHC 34.0 RDW 21.3 H Plt Count 222 MPV 9.2 Neut % (Auto) 76.0 H Lymph % (Auto) 10.4 L [place] % (Auto) 11.8 H Eos % (Auto) 1.3 Baso % (Auto) 0.5 Neut # (Auto) 6.0 Lymph # (Auto) 0.8 L [place] # (Auto) 0.9 H Eos # (Auto) 0.1 Baso # (Auto) 0.0 PT INR APTT pCO2 31 L pO2 75 L HCO3 29.0 H ABG pH 7.55 H ABG Total CO2 28.1 H ABG O2 Saturation 98.7 H ABG Base Excess 5.2 H Prudencio Test Yes ABG Potassium 2.6 L A-a O2 Difference 36.0 Glucose 130 H Lactate 1.1 FiO2 21.0 Sodium 132.0 Potassium Chloride 91.0 L Carbon Dioxide Anion Gap BUN Creatinine Est GFR ( Amer) Est GFR (Non-Af Amer) Random Glucose Calcium Phosphorus Magnesium Total Bilirubin AST ALT Alkaline Phosphatase Ammonia Troponin I NT-Pro-B Natriuret Pep Total Protein Albumin Globulin Albumin/Globulin Ratio Arterial Blood Potassium 2.6 L Urine Color Yellow Urine Clarity Slighty-cloudy Urine pH 6.0 Ur Specific [place] 1.011 Urine Protein 30 Urine Glucose (UA) Neg Urine Ketones Negative Urine Blood Negative Urine Nitrate Negative Urine Bilirubin Negative Urine Urobilinogen 2.0 Ur Leukocyte Esterase Neg Urine RBC (Auto) < 1 Urine Microscopic WBC 2 Ur Squamous Epith Cells 1 Urine Bacteria Few H 09/13/17 09/13/17 09/13/17 08:10 08:10 10:54 WBC RBC Hgb Hct MCV MCH MCHC RDW Plt Count MPV Neut % (Auto) Lymph % (Auto) [place] % (Auto) Eos % (Auto) Baso % (Auto) Neut # (Auto) Lymph # (Auto) [place] # (Auto) Eos # (Auto) Baso # (Auto) PT 13.4 H INR 1.2 APTT 34.1 pCO2 pO2 HCO3 ABG pH ABG Total CO2 ABG O2 Saturation ABG Base Excess Prudencio Test ABG Potassium A-a O2 Difference Glucose Lactate FiO2 Sodium 139 Potassium 3.0 L Chloride 94 L Carbon Dioxide 23 Anion Gap 25 H BUN 164 H* Creatinine 4.0 H Est GFR ( Amer) 18 Est GFR (Non-Af Amer) 15 Random Glucose 107 Calcium 9.7 Phosphorus 5.6 H Magnesium 1.9 Total Bilirubin 2.8 H AST 38 ALT 29 Alkaline Phosphatase 310 H Ammonia Troponin I 0.1220 H* NT-Pro-B Natriuret Pep Total Protein 7.8 Albumin 4.0 Globulin 3.7 Albumin/Globulin Ratio 1.1 Arterial Blood Potassium Urine Color Urine Clarity Urine pH Ur Specific [place] Urine Protein Urine Glucose (UA) Urine Ketones Urine Blood Urine Nitrate Urine Bilirubin Urine Urobilinogen Ur Leukocyte Esterase Urine RBC (Auto) Urine Microscopic WBC Ur Squamous Epith Cells Urine Bacteria 09/13/17 10:54 WBC RBC Hgb Hct MCV MCH MCHC RDW Plt Count MPV Neut % (Auto) Lymph % (Auto) [place] % (Auto) Eos % (Auto) Baso % (Auto) Neut # (Auto) Lymph # (Auto) [place] # (Auto) Eos # (Auto) Baso # (Auto) PT INR APTT pCO2 pO2 HCO3 ABG pH ABG Total CO2 ABG O2 Saturation ABG Base Excess Prudencio Test ABG Potassium A-a O2 Difference Glucose Lactate FiO2 Sodium Potassium Chloride Carbon Dioxide Anion Gap BUN Creatinine Est GFR ( Amer) Est GFR (Non-Af Amer) Random Glucose Calcium Phosphorus Magnesium Total Bilirubin AST ALT Alkaline Phosphatase Ammonia 27 Troponin I NT-Pro-B Natriuret Pep Total Protein Albumin Globulin Albumin/Globulin Ratio Arterial Blood Potassium Urine Color Urine Clarity Urine pH Ur Specific [place] Urine Protein Urine Glucose (UA) Urine Ketones Urine Blood Urine Nitrate Urine Bilirubin Urine Urobilinogen Ur Leukocyte Esterase Urine RBC (Auto) Urine Microscopic WBC Ur Squamous Epith Cells Urine Bacteria
--- NOTE | 2017-09-13 15:15 | CP.PCM.PN ---
Subjective - Date & Time of Evaluation Date of Evaluation: 09/13/17 Time of Evaluation: 15:15 - Subjective Subjective: PT C/O FATIGUE AND WEAKNESS. DENIES ANY CHANGE IN DYSPNEA. DENIES SIG EDEMA SINCE LAST ADMISSION TO [facility]. DENIES INCREASE IN ORTHOPNEA. Objective - Vital Signs/Intake and Output Vital Signs (last 24 hours): Temp Pulse Resp BP Pulse Ox 97.7 F 45 L 20 171/83 H 99 09/13/17 13:02 09/13/17 14:09 09/13/17 13:02 09/13/17 14:09 09/13/17 13:02 - Medications Medications: Current Medications Alprazolam (Xanax) 0.5 mg PO BID PRN PRN Reason: Agitation Famotidine (Pepcid) 20 mg PO DAILY [facility] Last Admin: 09/13/17 08:59 Dose: 20 mg Heparin Sodium (Porcine) (Heparin) 5,000 units SC Q12 SHAKIR PRN Reason: Protocol Last Admin: 09/13/17 08:59 Dose: 5,000 units Oral Electrolytes (Kcl 40meq/ 0.9% 1l) 1,000 mls @ 75 mls/hr IV .[id number] SHAKIR Last Admin: 09/13/17 09:00 Dose: 75 mls/hr Dobutamine HCl/Dextrose (Dobutamine/Dextrose 5% 500mg/250ml) 500 mg in 250 mls @ 17.214 mls/hr IV .[id number] SHAKIR PRN Reason: 5 MCG/KG/MIN Last Admin: 09/13/17 14:09 Dose: 17.214 mls/hr Potassium Chloride (Potassium Chloride 20 Meq/100 Ml) 100 mls @ 50 mls/hr IVPB Q2 SHAKIR Stop: 09/13/17 15:59 Last Admin: 09/13/17 14:10 Dose: 50 mls/hr Zolpidem Tartrate (Ambien) 5 mg PO HS PRN PRN Reason: Insomnia - Labs Labs: 09/13/17 08:10 09/13/17 08:10 PT 13.4 Seconds (9.8-13.1) H 09/13/17 08:10 INR 1.2 (0.9-1.2) 09/13/17 08:10 APTT 34.1 Seconds (25.6-37.1) 09/13/17 08:10 - Constitutional Appears: Well - Head Exam Head Exam: ATRAUMATIC, NORMAL INSPECTION, NORMOCEPHALIC - Eye Exam Eye Exam: EOMI, Normal appearance, PERRL. absent: Conjunctival injection, Nystagmus, Periorbital swelling, Periorbital tenderness, Scleral icterus Pupil Exam: NORMAL ACCOMODATION, PERRL - ENT Exam ENT Exam: Mucous Membranes Dry. absent: Normal External Ear Exam, Normal Oropharynx, TM's Normal Bilaterally - Neck Exam Neck Exam: Full ROM, Normal Inspection. absent: Lymphadenopathy, Meningismus, Tenderness, Thyromegaly - Respiratory Exam Respiratory Exam: Prolonged Expiratory Phase. absent: Accessory Muscle Use, Chest Wall Tenderness, Decreased Breath Sounds, Clear to Ausculation Bilateral, Rales, Rhonchi, Wheezes, Respiratory Distress, Stridor, NORMAL BREATHING PATTERN Additional comments: MILDLY LABORED BREATHING WITH DECREASED B/S OVER RIGHT APICAL LUNG ZONE COMPARED TO LEFT. - Cardiovascular Exam Cardiovascular Exam: Bradycardia, Diastolic murmur, Irregular Rhythm, +S1, +S2, Murmur - GI/Abdominal Exam GI & Abdominal Exam: Soft, Normal Bowel Sounds. absent: Bruit, Distended, Firm , Guarding, Rigid, Tenderness, Diminished Bowel Sounds, Hernia, Hyperactive Bowel Sounds, Hypoactive Bowel Sounds, Organomegaly, Pulsatile Mass, Rebound, Mass - Rectal Exam Rectal Exam: Deferred - Extremities Exam Extremities Exam: Normal Capillary Refill, Pedal Edema. absent: Calf Tenderness , Full ROM, Joint Swelling, Normal Inspection, Tenderness Additional comments: MINIMAL PEDAL EDEMA WHICH IS NONPITTING - Back Exam Back Exam: NORMAL INSPECTION. absent: CVA tenderness (L), CVA tenderness (R), Full ROM, muscle spasm, paraspinal tenderness, rash noted, tenderness, vertebral tenderness - Neurological Exam Neurological Exam: Alert, Awake, CN II-XII Intact, Oriented x3. absent: Abnormal Gait, Altered, Motor Sensory Deficit, Normal Gait, Reflexes Normal - Psychiatric Exam Psychiatric exam: Agitated, Normal Affect. absent: Anxious, Depressed, Flat Affect, Homicidal Ideation, Manic, Normal Mood, Suicidal Ideation - Skin Skin Exam: Dry, Intact, Normal Color, Warm. absent: Abrasion, Cyanosis, Diaphoretic, Erythema, Mottled, Pallor, Pallor, Petechiae, Rash, Urticaria, Vesicles Assessment and Plan (1) AV node dysfunction Status: Acute (2) AV junctional bradycardia Status: Acute (3) Acute on chronic systolic (congestive) heart failure Status: Acute (4) Chronic atrial fibrillation Status: Acute (5) Chronic kidney disease, stage V Status: Acute (6) Hypokalemia Status: Acute (7) Liver transplant disorder Status: Acute - Assessment and Plan (Free Text) Plan: UPON PRIOR D/C FROM [facility] PTS DIURETICS WERE HELD. HE WAS DIURESED DURING HIS HOSPITALIZATION. CURRENTLY PT APPEARS TO HAVE INTRAVASCULAR VOLUME LOSS WITH ACUTE ON CHRONIC RENAL FAILURE. PER PT HIS EF IS 35% ON LATEST ECHO. PT HAS DECLINED CARDIAC CATHS AND INVASIVE PROCEDURES FOR EVALUATION OF HIS CM. 1. BETA BLOCKERS ARE CONTRAINDICATED DUE TO AVN DYSFUNCTION 2. CHANGE PT TO THERAPEUTIC HEPARIN DOSING GIVEN AFIB 3. CONTINUE IV HYDRATION WITH DOBUTAMINE 4. WOULD ADD ACEI ONCE OKAY WITH RENAL 5. REPLEAT K AND MAG 6. I/O 7. RN TO CONTACT DR RICHARDSON REGARDING IMMUNOSUPPRESSIVE THERAPY FOR LIVER TRANSPLANT
[2017-09-13] MEDS ORDERED: Heparin 25,000units in D5W 25,000 UNITS/250 ML BAG IV SCH (16:15)
[2017-09-13] MEDS: Heparin 25,000units in D5W 25,000 UNITS/250 ML BAG IV SCH (18:24)
[2017-09-13] MEDS: Oxycodone/Acetaminophen 5/325 mg Tab PO PRN (22:17)
[2017-09-14 06:36] LABS: BASO % 0.5 % (0.0-2.0); EOS # 0.2 K/uL (0.0-0.7); EOS % 2.8 % (0.0-4.0); HEMOGLOBIN 13.3 g/dL (12.0-18.0); LYMPH # 0.9 K/uL (1.0-4.3); LYMPH % 11.7 % (20.0-40.0); MEAN CELL VOLUME 83.1 fl (80.0-94.0); MEAN CORPUSCULAR HEMOGLOBIN 27.4 pg (27.0-31.0); MEAN PLATELET VOLUME 9.2 fl (7.2-11.7); MONO # 0.9 K/uL (0.0-0.8); MONO % 12.6 % (0.0-10.0); NEUT # 5.4 K/uL (1.8-7.0); NEUT % 72.4 % (50.0-75.0); RBC 4.86 Mil/uL (4.40-5.90); RED CELL DISTRIBUTION WIDTH 21.7 % (11.5-14.5); WHITE BLOOD COUNT 7.5 K/uL (4.8-10.8)
[2017-09-14 06:53] LABS: CALCIUM 9.7 mg/dL (8.4-10.2)
[2017-09-14 07:09] LABS: INR 1.2 (0.9-1.2); PARTIAL THROMBOPLASTIN TIME 60.8 Seconds (25.6-37.1); PROTHROMBIN TIME 13.4 Seconds (9.8-13.1)
[2017-09-14] MEDS: Oxycodone/Acetaminophen 5/325 mg Tab PO PRN ×2 (09:17→21:28)
[2017-09-14] MEDS: KCL 40MEQ/NS 1L 1,000 ML IV SCH (09:20)
--- NOTE | 2017-09-14 10:16 | CP.PCM.PN ---
Subjective - Date & Time of Evaluation Date of Evaluation: 09/14/17 Time of Evaluation: 10:13 - Subjective Subjective: patient awake and conscious is feeling much better Less shortness of breath somewhat No nausea or vomiting Vital sign noted to be stable Objective - Vital Signs/Intake and Output Vital Signs (last 24 hours): Temp Pulse Resp BP Pulse Ox 97.8 F 51 L 18 152/75 H 98 09/14/17 08:05 09/14/17 08:05 09/14/17 08:05 09/14/17 08:05 09/14/17 08:05 Intake and Output: 09/14/17 09/14/17 06:59 18:59 Intake Total 1936 Output Total 960 Balance 976 - Medications Medications: Current Medications Alprazolam (Xanax) 0.5 mg PO BID PRN PRN Reason: Agitation Famotidine (Pepcid) 20 mg PO DAILY [facility] Last Admin: 09/14/17 09:18 Dose: 20 mg Dobutamine HCl/Dextrose (Dobutamine/Dextrose 5% 500mg/250ml) 500 mg in 250 mls @ 17.214 mls/hr IV .[id number] [facility] PRN Reason: 5 MCG/KG/MIN Last Admin: 09/13/17 14:09 Dose: 17.214 mls/hr Heparin Sodium/Dextrose (Heparin 25,000 Units/250ml In D5w) 25,000 units in 250 mls @ 10 mls/hr IV .Q24H [facility] PRN Reason: Protocol Last Titration: 09/14/17 02:05 Dose: 12 mls/hr Oral Electrolytes (Kcl 40meq/ 0.9% 1l) 1,000 mls @ 75 mls/hr IV .[id number] [facility] Stop: 09/14/17 20:36 Last Admin: 09/14/17 09:20 Dose: 75 mls/hr Piperacillin Sod/Tazobactam (Sod 2.25 gm/ Sodium Chloride) 100 mls @ 100 mls/ hr IVPB Q8 [facility] PRN Reason: Protocol Lactobacillus Acidophilus (Bacid Acidophilus) 1 cap PO BID [facility] Oxycodone/Acetaminophen (Percocet 5/325 Mg Tab) 1 tab PO Q6 PRN PRN Reason: Pain, severe (8-10) Stop: 09/16/17 22:08 Last Admin: 09/14/17 09:17 Dose: 1 tab Tacrolimus (Prograf Cap) 0.5 mg PO Q12 [facility] Last Admin: 09/14/17 09:18 Dose: 0.5 mg Zolpidem Tartrate (Ambien) 5 mg PO HS PRN PRN Reason: Insomnia - Labs Labs: 09/14/17 05:30 09/14/17 05:30 PT 13.4 Seconds (9.8-13.1) H 09/14/17 05:30 INR 1.2 (0.9-1.2) 09/14/17 05:30 APTT 60.8 Seconds (25.6-37.1) H D 09/14/17 05:30 - Constitutional Appears: No Acute Distress - Eye Exam Eye Exam: absent: Conjunctival injection - ENT Exam ENT Exam: absent: Mucous Membranes Moist - Neck Exam Neck Exam: absent: Lymphadenopathy - Respiratory Exam Respiratory Exam: absent: Chest Wall Tenderness - Cardiovascular Exam Cardiovascular Exam: Irregular Rhythm. absent: Gallop, Rubs - GI/Abdominal Exam GI & Abdominal Exam: Soft, Normal Bowel Sounds - Extremities Exam Extremities Exam: absent: Calf Tenderness - Back Exam Back Exam: absent: CVA tenderness (L), CVA tenderness (R) - Neurological Exam Neurological Exam: Alert - Psychiatric Exam Psychiatric exam: Normal Affect - Skin Skin Exam: absent: Cyanosis Assessment and Plan (1) Chronic kidney disease, stage V Assessment & Plan: acute kidney injury superimposed on chronic kidney disease perhaps is stage IV it's not clear however serum creatinine improving B UN came down to around 140 Hypokalemia continue potassium supplement Decompensated congestive heart failure as per cardiology recommendation Cardiac arrhythmia with atrial fibrillation as per cardiology. Status post liver transplant many years ago patient is receiving Prograf we need to do the level of the prograf of if he is staying in this hospital continue monitoring electrolyte Abnormal elevated serum bilirubin continue monitoring hyperphosphatemia serum phosphorus 5.6 we will add calcium acetate or Renagel Status: Acute (2) Liver transplant disorder Status: Acute (3) Acute on chronic systolic (congestive) heart failure Status: Acute (4) Chronic atrial fibrillation Status: Acute (5) Hypokalemia Status: Acute
--- NOTE | 2017-09-14 12:59 | CP.PCM.PN ---
Subjective - Date & Time of Evaluation Date of Evaluation: 09/14/17 Time of Evaluation: 12:59 - Subjective Subjective: CLINICALLY IMPROVING LESS SOB Objective - Vital Signs/Intake and Output Vital Signs (last 24 hours): Temp Pulse Resp BP Pulse Ox 98.7 F 60 18 142/77 98 09/14/17 12:04 09/14/17 12:04 09/14/17 12:04 09/14/17 12:04 09/14/17 12:04 Intake and Output: 09/14/17 09/14/17 06:59 18:59 Intake Total 1936 Output Total 960 Balance 976 - Medications Medications: Current Medications Alprazolam (Xanax) 0.5 mg PO BID PRN PRN Reason: Agitation Calcium Acetate (Phoslo) 667 mg PO TID [facility] Famotidine (Pepcid) 20 mg PO DAILY [facility] Last Admin: 09/14/17 09:18 Dose: 20 mg Dobutamine HCl/Dextrose (Dobutamine/Dextrose 5% 500mg/250ml) 500 mg in 250 mls @ 17.214 mls/hr IV .[id number] [facility] PRN Reason: 5 MCG/KG/MIN Last Admin: 09/13/17 14:09 Dose: 17.214 mls/hr Heparin Sodium/Dextrose (Heparin 25,000 Units/250ml In D5w) 25,000 units in 250 mls @ 10 mls/hr IV .Q24H [facility] PRN Reason: Protocol Last Titration: 09/14/17 02:05 Dose: 12 mls/hr Oral Electrolytes (Kcl 40meq/ 0.9% 1l) 1,000 mls @ 75 mls/hr IV .[id number] [facility] Stop: 09/14/17 20:36 Last Admin: 09/14/17 09:20 Dose: 75 mls/hr Piperacillin Sod/Tazobactam (Sod 2.25 gm/ Sodium Chloride) 100 mls @ 100 mls/ hr IVPB Q8 [facility] PRN Reason: Protocol Last Admin: 09/14/17 10:22 Dose: 100 mls/hr Dobutamine HCl/Dextrose (Dobutamine/Dextrose 5% 500mg/250ml) 500 mg in 250 mls @ 16.942 mls/hr IV .[id number] [facility]; 5 MCG/KG/MIN PRN Reason: Protocol Lactobacillus Acidophilus (Bacid Acidophilus) 1 cap PO BID COUNT [facility] Oxycodone/Acetaminophen (Percocet 5/325 Mg Tab) 1 tab PO Q6 PRN PRN Reason: Pain, severe (8-10) Stop: 09/16/17 22:08 Last Admin: 09/14/17 09:17 Dose: 1 tab Tacrolimus (Prograf Cap) 0.5 mg PO Q12 [facility] Last Admin: 09/14/17 09:18 Dose: 0.5 mg Zolpidem Tartrate (Ambien) 5 mg PO HS PRN PRN Reason: Insomnia - Labs Labs: 09/14/17 05:30 09/14/17 05:30 PT 13.4 Seconds (9.8-13.1) H 09/14/17 05:30 INR 1.2 (0.9-1.2) 09/14/17 05:30 APTT 60.8 Seconds (25.6-37.1) H D 09/14/17 05:30 - Constitutional Appears: Chronically Ill - Head Exam Head Exam: ATRAUMATIC, NORMAL INSPECTION, NORMOCEPHALIC - Eye Exam Eye Exam: EOMI, Normal appearance, PERRL Pupil Exam: NORMAL ACCOMODATION, PERRL - ENT Exam ENT Exam: Mucous Membranes Moist, Normal Exam - Neck Exam Neck Exam: Full ROM, Normal Inspection. absent: Lymphadenopathy - Respiratory Exam Respiratory Exam: Decreased Breath Sounds, Prolonged Expiratory Phase, Rales, NORMAL BREATHING PATTERN - Cardiovascular Exam Cardiovascular Exam: REGULAR RHYTHM, +S1, +S2. absent: Murmur - GI/Abdominal Exam GI & Abdominal Exam: Soft, Normal Bowel Sounds. absent: Tenderness - Rectal Exam Rectal Exam: NORMAL INSPECTION - Extremities Exam Extremities Exam: Full ROM, Normal Capillary Refill, Normal Inspection, Pedal Edema. absent: Joint Swelling - Back Exam Back Exam: NORMAL INSPECTION - Neurological Exam Neurological Exam: Alert, Awake, CN II-XII Intact, Normal Gait, Oriented x3 - Psychiatric Exam Psychiatric exam: Normal Affect, Normal Mood - Skin Skin Exam: Dry, Intact, Normal Color, Warm Assessment and Plan - Assessment and Plan (Free Text) Assessment: CARDIOMYOPATHY CHF ELEVATED TROPONIN ESRD Plan: CONTINUE RX PER CARDIOLOGY PT REFUSED DIALYSIS
[2017-09-14] MEDS: DOBUTamine 500mg/250ml D5W 500 MG/250 ML BAG IV SCH (15:09)
[2017-09-14] MEDS: Lactobacillus Acidophilus 500 MU Cap PO SCH ×2 (15:11→16:13)
--- NOTE | 2017-09-14 15:40 | RAD ---
Date of service: 09/14/2017 PROCEDURE: CHEST RADIOGRAPH, 1 VIEW HISTORY: CHF COMPARISON: 09/13/2017 FINDINGS: LUNGS: Clear. PLEURA: Stable right pleural effusion. CARDIOVASCULAR: Cardiomegaly. No evidence of acute, significant cardiovascular disease. OSSEOUS STRUCTURES: No significant abnormalities. VISUALIZED UPPER ABDOMEN: Normal. OTHER FINDINGS: None. IMPRESSION: No active disease. No acute/significant interval changes.
[2017-09-14] MEDS: Heparin 25,000units in D5W 25,000 UNITS/250 ML BAG IV SCH (16:07)
[2017-09-14] MEDS: Calcium Acetate 667 MG Capsule PO SCH (16:13)
--- NOTE | 2017-09-14 19:16 | CP.PCM.PN ---
Subjective - Date & Time of Evaluation Date of Evaluation: 09/14/17 Time of Evaluation: 19:16 - Subjective Subjective: RESTING COMFORTABLY. Objective - Vital Signs/Intake and Output Vital Signs (last 24 hours): Temp Pulse Resp BP Pulse Ox 97.5 F L 68 20 164/83 H 95 09/14/17 15:55 09/14/17 15:55 09/14/17 15:55 09/14/17 15:55 09/14/17 15:55 Intake and Output: 09/14/17 09/15/17 18:59 06:59 Intake Total 2015 Output Total 1500 Balance 516 - Medications Medications: Current Medications Alprazolam (Xanax) 0.5 mg PO BID PRN PRN Reason: Agitation Calcium Acetate (Phoslo) 667 mg PO TID [facility] Last Admin: 09/14/17 16:13 Dose: Not Given Famotidine (Pepcid) 20 mg PO DAILY [facility] Last Admin: 09/14/17 09:18 Dose: 20 mg Heparin Sodium/Dextrose (Heparin 25,000 Units/250ml In D5w) 25,000 units in 250 mls @ 10 mls/hr IV .Q24H [facility] PRN Reason: Protocol Last Admin: 09/14/17 16:07 Dose: 12 mls/hr Oral Electrolytes (Kcl 40meq/ 0.9% 1l) 1,000 mls @ 75 mls/hr IV .[id number] [facility] Stop: 09/14/17 20:36 Last Admin: 09/14/17 09:20 Dose: 75 mls/hr Piperacillin Sod/Tazobactam (Sod 2.25 gm/ Sodium Chloride) 100 mls @ 100 mls/ hr IVPB Q8 [facility] PRN Reason: Protocol Last Admin: 09/14/17 16:12 Dose: 100 mls/hr Dobutamine HCl/Dextrose (Dobutamine/Dextrose 5% 500mg/250ml) 500 mg in 250 mls @ 16.942 mls/hr IV .[id number] [facility]; 5 MCG/KG/MIN PRN Reason: Protocol Last Admin: 09/14/17 15:09 Dose: 5 mcg/kg/min, 16.942 mls/hr Lactobacillus Acidophilus (Bacid Acidophilus) 1 cap PO BID [facility] Last Admin: 07/27/18 16:13 Dose: Not Given Ondansetron HCl (Zofran Inj) 4 mg IVP Q6 PRN PRN Reason: Nausea/Vomiting Last Admin: 09/14/17 16:11 Dose: 4 mg Oxycodone/Acetaminophen (Percocet 5/325 Mg Tab) 1 tab PO Q6 PRN PRN Reason: Pain, severe (8-10) Stop: 09/16/17 22:08 Last Admin: 09/14/17 09:17 Dose: 1 tab Tacrolimus (Prograf Cap) 0.5 mg PO Q12 [facility] Last Admin: 09/14/17 09:18 Dose: 0.5 mg Zolpidem Tartrate (Ambien) 5 mg PO HS PRN PRN Reason: Insomnia - Labs Labs: 09/14/17 05:30 09/14/17 05:30 PT 13.4 Seconds (9.8-13.1) H 09/14/17 05:30 INR 1.2 (0.9-1.2) 09/14/17 05:30 APTT 60.8 Seconds (25.6-37.1) H D 09/14/17 05:30 - Constitutional Appears: Well - Head Exam Head Exam: ATRAUMATIC, NORMAL INSPECTION, NORMOCEPHALIC - Eye Exam Eye Exam: EOMI, Normal appearance, PERRL. absent: Conjunctival injection, Nystagmus, Periorbital swelling, Periorbital tenderness, Scleral icterus Pupil Exam: NORMAL ACCOMODATION, PERRL - ENT Exam ENT Exam: Mucous Membranes Moist, Normal Exam. absent: Mucous Membranes Dry, Normal External Ear Exam, Normal Oropharynx, TM's Normal Bilaterally - Neck Exam Neck Exam: Full ROM, Normal Inspection. absent: Lymphadenopathy, Meningismus, Tenderness, Thyromegaly - Respiratory Exam Respiratory Exam: Clear to Ausculation Bilateral, NORMAL BREATHING PATTERN. absent: Accessory Muscle Use, Chest Wall Tenderness, Decreased Breath Sounds, Prolonged Expiratory Phase, Rales, Rhonchi, Wheezes, Respiratory Distress, Stridor - Cardiovascular Exam Cardiovascular Exam: Bradycardia, Diastolic murmur, Irregular Rhythm, +S1, +S2, Murmur. absent: Tachycardia, Clicks, Gallop, REGULAR RHYTHM, JVD, RRR, Rubs, + S4 - GI/Abdominal Exam GI & Abdominal Exam: Soft, Normal Bowel Sounds. absent: Bruit, Distended, Firm , Guarding, Rigid, Tenderness, Diminished Bowel Sounds, Hernia, Hyperactive Bowel Sounds, Hypoactive Bowel Sounds, Organomegaly, Pulsatile Mass, Rebound, Mass - Rectal Exam Rectal Exam: Deferred - Extremities Exam Extremities Exam: Full ROM, Normal Capillary Refill, Normal Inspection. absent : Calf Tenderness, Joint Swelling, Pedal Edema, Tenderness - Back Exam Back Exam: NORMAL INSPECTION. absent: CVA tenderness (L), CVA tenderness (R), Full ROM, muscle spasm, paraspinal tenderness, rash noted, tenderness, vertebral tenderness - Neurological Exam Neurological Exam: Alert, Awake, CN II-XII Intact, Normal Gait, Oriented x3. absent: Abnormal Gait, Altered, Motor Sensory Deficit, Reflexes Normal - Psychiatric Exam Psychiatric exam: Normal Affect, Normal Mood. absent: Agitated, Anxious, Depressed, Flat Affect, Homicidal Ideation, Manic, Suicidal Ideation - Skin Skin Exam: Dry, Intact, Normal Color, Warm. absent: Abrasion, Cyanosis, Diaphoretic, Erythema, Mottled, Pallor, Pallor, Petechiae, Rash, Urticaria, Vesicles Assessment and Plan (1) AV node dysfunction Status: Acute (2) AV junctional bradycardia Status: Acute (3) Acute on chronic systolic (congestive) heart failure Status: Acute (4) Chronic atrial fibrillation Status: Acute (5) Chronic kidney disease, stage V Status: Acute (6) Hypokalemia Status: Acute (7) Liver transplant disorder Status: Acute (8) Enlarged RV (right ventricle) Status: Acute - Assessment and Plan (Free Text) Plan: ECHO IMAGES REVIEWED. EF MINIMALLY REDUCED 45-50 PERCENT. MILD MR, MILD TR, MILD AI. RV DILATED WITH NORMAL SIZE RA. ABN DIASTOLIC FUNCTION BASED ON TISSUE DOPPLER. RECOMMEND CONTINUED IV HYDRATION, NO DIURETICS. CR AND BNP IMPROVING WITH IVF. MONITOR ON TELE. RECOMMEND V/Q SCAN. NO BB'S. CONTINUE ANTICOAGULATION.
[2017-09-15 04:54] LABS: CALCIUM 9.6 mg/dL (8.4-10.2)
[2017-09-15] MEDS: DOBUTamine 500mg/250ml D5W 500 MG/250 ML BAG IV SCH (06:48)
[2017-09-15] MEDS: Lactobacillus Acidophilus 500 MU Cap PO SCH ×2 (09:17→16:17)
[2017-09-15] MEDS: Calcium Acetate 667 MG Capsule PO SCH ×3 (09:18→16:25)
[2017-09-15] MEDS: Oxycodone/Acetaminophen 5/325 mg Tab PO PRN (10:01)
--- NOTE | 2017-09-15 10:23 | CP.PCM.PN ---
Subjective - Date & Time of Evaluation Date of Evaluation: 09/15/17 Time of Evaluation: 10:25 - Subjective Subjective: C/O NAUSEA SOB IMPROVED NO CHEST PAINS STILL WEAK REFUSES LUNG SCAN["THERE IS NOTHING WRONG WITH MY LUNGS"] Objective - Vital Signs/Intake and Output Vital Signs (last 24 hours): Temp Pulse Resp BP Pulse Ox 98.3 F 73 18 164/76 H 100 09/15/17 08:11 09/15/17 08:11 09/15/17 08:11 09/15/17 08:11 09/15/17 08:11 Intake and Output: 09/15/17 09/15/17 06:59 18:59 Intake Total 368 Balance 368 - Medications Medications: Current Medications Alprazolam (Xanax) 0.5 mg PO BID PRN PRN Reason: Agitation Calcium Acetate (Phoslo) 667 mg PO TID [facility] Last Admin: 09/15/17 09:18 Dose: 667 mg Famotidine (Pepcid) 20 mg PO DAILY [facility] Last Admin: 09/15/17 09:18 Dose: 20 mg Heparin Sodium/Dextrose (Heparin 25,000 Units/250ml In D5w) 25,000 units in 250 mls @ 10 mls/hr IV .Q24H [facility] PRN Reason: Protocol Last Titration: 09/14/17 21:29 Dose: 14 mls/hr Piperacillin Sod/Tazobactam (Sod 2.25 gm/ Sodium Chloride) 100 mls @ 100 mls/ hr IVPB Q8 [facility] PRN Reason: Protocol Last Admin: 09/15/17 09:19 Dose: 100 mls/hr Dobutamine HCl/Dextrose (Dobutamine/Dextrose 5% 500mg/250ml) 500 mg in 250 mls @ 16.942 mls/hr IV .[id number] [facility]; 5 MCG/KG/MIN PRN Reason: Protocol Last Admin: 09/15/17 06:48 Dose: 5 mcg/kg/min, 16.942 mls/hr Lactobacillus Acidophilus (Bacid Acidophilus) 1 cap PO BID [facility] Last Admin: 09/15/17 09:17 Dose: 1 cap Ondansetron HCl (Zofran Inj) 4 mg IVP Q6 PRN PRN Reason: Nausea/Vomiting Last Admin: 09/15/17 04:27 Dose: 4 mg Oxycodone/Acetaminophen (Percocet 5/325 Mg Tab) 1 tab PO Q6 PRN PRN Reason: Pain, severe (8-10) Stop: 09/16/17 22:08 Last Admin: 09/15/17 10:01 Dose: 1 tab Tacrolimus (Prograf Cap) 0.5 mg PO Q12 [facility] Last Admin: 09/15/17 09:18 Dose: 0.5 mg Zolpidem Tartrate (Ambien) 5 mg PO HS PRN PRN Reason: Insomnia Last Admin: 09/14/17 21:28 Dose: 5 mg - Labs Labs: 09/14/17 05:30 09/15/17 04:33 PT 13.4 Seconds (9.8-13.1) H 09/14/17 05:30 INR 1.2 (0.9-1.2) 09/14/17 05:30 APTT 48.3 Seconds (25.6-37.1) H D 09/15/17 04:33 - Constitutional Appears: Chronically Ill - Head Exam Head Exam: ATRAUMATIC, NORMAL INSPECTION, NORMOCEPHALIC - Eye Exam Eye Exam: EOMI, Normal appearance, PERRL Pupil Exam: NORMAL ACCOMODATION, PERRL - ENT Exam ENT Exam: Mucous Membranes Moist, Normal Exam - Neck Exam Neck Exam: Full ROM, Normal Inspection. absent: Lymphadenopathy - Respiratory Exam Respiratory Exam: Decreased Breath Sounds, Prolonged Expiratory Phase, Rales, NORMAL BREATHING PATTERN - Cardiovascular Exam Cardiovascular Exam: Irregular Rhythm, +S1, +S2. absent: Murmur - GI/Abdominal Exam GI & Abdominal Exam: Soft, Normal Bowel Sounds. absent: Tenderness - Rectal Exam Rectal Exam: NORMAL INSPECTION - Extremities Exam Extremities Exam: Full ROM, Normal Capillary Refill, Normal Inspection, Pedal Edema. absent: Joint Swelling - Back Exam Back Exam: NORMAL INSPECTION - Neurological Exam Neurological Exam: Alert, Awake, CN II-XII Intact, Normal Gait, Oriented x3 - Psychiatric Exam Psychiatric exam: Normal Affect, Normal Mood - Skin Skin Exam: Dry, Intact, Normal Color, Warm Assessment and Plan - Assessment and Plan (Free Text) Assessment: CHF ARRYTHMIAS S/P LIVER TRANSPLANT CHRONIC KIDNEY DZ[ACUTE ON CHRONIC] HYPOKALEMIA IMPROVED NAUSEA Plan: WILL CONTINUE RX PER [facility]
[2017-09-15] MEDS ORDERED: Potassium Chloride 20 mEq ER Tab PO ONE ×2 (15:00→21:00)
--- NOTE | 2017-09-15 15:12 | CARD ---
APPROVED REPORT Date of service: 09/14/2017 EXAM: Two-dimensional and M-mode echocardiogram with Doppler and color Doppler. Other Information Quality : AverageRhythm : Bradycardia INDICATION ELEVATED TROPONIN 2D DIMENSIONS IVSd1.57 (0.7-1.1cm)LVDd5.80 (3.9-5.9cm) LVOT Diameter2.47 (1.8-2.4cm)PWd1.47 (0.7-1.1cm) IVSs1.70 (0.8-1.2cm)LVDs4.62 (2.5-4.0cm) FS (%) 20.4 %PWs1.80 (0.8-1.2cm) M-Mode DIMENSIONS Left Atrium (MM)6.56 (2.5-4.0cm)IVSd1.24 (0.7-1.1cm) Aortic Root3.40 (2.2-3.7cm)LVDd6.99 (4.0-5.6cm) Aortic Cusp Exc.2.35 (1.5-2.0cm)PWd1.08 (0.7-1.1cm) IVSs1.74 cmFS (%) 37 % LVDs4.40 (2.0-3.8cm)PWs1.54 cm Aortic Valve AoV Peak Sovnxhnd429.9cm/sAoV VTI45.0cmAO Peak GR.29mmHg LVOT Peak Hdgqpmce185.5cm/sLVOT VTI23.90cmAO Mean GR.14mmHg RYLIE (VMAX)1.60ma4JQV (VTI)1.04cm2 Mitral Valve MV E Fvglnrph32.4cm/sMV DECEL [id number] A Qiokqako17.7cm/s MV RVL86bzY/A ratio1.7MVA (PHT)2.53cm2 TDI Lateral E' Peak V16.52cm/sMedial E' Peak V9.09cm/sE/Lateral E'5.4 E/Medial E'9.8 Tricuspid Valve TR Peak Qeeswzwm023kr/sRAP RFVNJTRR25qwRdLA Peak Gr.58mmHg [id number] LEFT VENTRICLE The left ventricle is normal size. There is borderline to mild concentric left ventricular hypertrophy. The left ventricular function is normal. The left ventricular ejection fraction is within the normal range. The Ejection Fraction is 60-65%. There is normal LV segmental wall motion. Transmitral Doppler flow pattern is Grade II-pseudonormal filling dynamics. RIGHT VENTRICLE The right ventricle is mildly dilated. The right ventricle is mildly hypertrophied. The right ventricular systolic function is normal. ATRIA The left atrium is borderline dilated. The right atrium is mildly dilated. AORTIC VALVE The aortic valve is normal in structure. No aortic regurgitation is present. There is no aortic valvular stenosis. MITRAL VALVE The mitral valve is thickened but opens well. There is no mitral valve stenosis. Mitral regurgitation is trace to mild. TRICUSPID VALVE The tricuspid valve is normal in structure. There is trace to mild tricuspid regurgitation. Right ventricular systolic pressure is estimated at greater than 60 mmHg. There is moderate pulmonary hypertension. PULMONIC VALVE The pulmonary valve is normal in structure. There is no pulmonic valvular regurgitation. GREAT VESSELS The aortic root is normal in size. The IVC is normal in size and collapses >50% with inspiration. PERICARDIAL EFFUSION The pericardium appears normal. <Conclusion> The left ventricular function is normal. The left ventricular ejection fraction is within the normal range. The Ejection Fraction is 60-65%. Mitral regurgitation is trace to mild. There is trace to mild tricuspid regurgitation. Right ventricular systolic pressure is estimated at greater than 60 mmHg. There is moderate pulmonary hypertension.
[2017-09-15] MEDS: Heparin 25,000units in D5W 25,000 UNITS/250 ML BAG IV SCH (16:18)
[2017-09-15] MEDS: Magnesium Sulfate 1 GM in Dextrose 5% In Water 100 ML IV SCH ×2 (16:21→16:24)
--- NOTE | 2017-09-15 16:34 | CARD ---
APPROVED REPORT Date of service: 09/15/2017 EKG Measurement Heart [id number] <Conclusion> Atrial fibrillation with slow ventricular response with premature ventricular or aberrantly conducted complexes Septal infarct, age undetermined Possible Lateral infarct, age undetermined Abnormal ECG
--- NOTE | 2017-09-15 21:32 | CP.PCM.PN ---
Subjective - Date & Time of Evaluation Date of Evaluation: 09/15/17 Time of Evaluation: 17:00 - Subjective Subjective: Nephrology Consultation Note Assessment: Stable Acute Kidney Injury (N17.9) improving sys CHF UTI with sepsis hx of liver transplant Hypokalemia, hyperphosphatemia CKD Plan No acute need for renal replacement therapy at this time as renal function imrpving gradually. so far, pt had refused dialysis. Hypertension control with meds as ordered. Patient not on ACEI/ARB due to recent PIRERE Monitor Input/Output, daily weights and renal function with basic metabolic panel cardiology following continue with phos binders check tacrolimus level in AM check urine Na/cr, pr/cr, renal sonogram Dose meds/antibiotics for reduced GFR. Avoid fleets enema/magnesium based laxatives. Avoid nephrotoxins/NSAIDs/ iodinated contrast (unless needed emergently) Glycemic control Further work up for as per primary team Thanks for allowing me to participate in care of your patient. Will follow patient with you. Please call if any Qs Dr Oscar Linn Office: [phone] Subjective: Noted events overnight. Patients feels okay. Denies chest pain, palpitation, shortness of breath, leg swelling. All other negative except nausea Physical Examination: General Appearance: Comfortable, in no acute respiratory distress, co-operative . Vitals reviewed and noted as below Head; Atraumatic, normocephalic ENT: no ulcers no thrush. Tongue is midline. Oropharynx: no rash or ulcers. EYES: Pupils are equal, round and reactive to light accommodation. Eye muscles and extraocular movement intact. Sclera is anicteric. Neck; supple no lymphadenopathy, no thyromegaly or bruit Lungs: Normal respiratory rate/effort. Breath sounds bilateral equal and clear Heart: Normal rate. s1s2 normal. No rub or gallop. Extremities: no edema. No varicose veins Neurological: Patient is alert, awake and oriented to person, place and time. No focal deficit. Strength bilateral appropriate and equal Skin: Warm and dry. Normal turgor. No rash. Palpitation: Normal elasticity for age Abdomen: Abdomen is soft. Bowel sounds +. There is no abdominal tenderness, no guarding/rigidity no organomegaly Psych: normal insight and normal affect/mood. irritable MSK: no joint tenderness or swelling. Digits and nails normal, no deformity : kidney or bladder not palpable Labs/imaging reviewed. Past medical history, past surgical history, family history, social history, allergy reviewed and noted as below Family hx: no hx of CKD. Rest non-contributory Objective - Vital Signs/Intake and Output Vital Signs (last 24 hours): Temp Pulse Resp BP Pulse Ox 97.6 F 44 L 20 144/74 99 09/15/17 16:00 09/15/17 20:36 09/15/17 16:00 09/15/17 16:00 09/15/17 16:00 Intake and Output: 09/15/17 09/16/17 18:59 06:59 Intake Total 1640 Output Total 950 Balance 690 - Medications Medications: Current Medications Alprazolam (Xanax) 0.5 mg PO BID PRN PRN Reason: Agitation Calcium Acetate (Phoslo) 667 mg PO TID [facility] Last Admin: 09/15/17 16:25 Dose: 667 mg Famotidine (Pepcid) 20 mg PO DAILY [facility] Last Admin: 09/15/17 09:18 Dose: 20 mg Heparin Sodium/Dextrose (Heparin 25,000 Units/250ml In D5w) 25,000 units in 250 mls @ 10 mls/hr IV .Q24H [facility] PRN Reason: Protocol Last Admin: 09/15/17 16:18 Dose: 16 mls/hr Piperacillin Sod/Tazobactam (Sod 2.25 gm/ Sodium Chloride) 100 mls @ 100 mls/ hr IVPB Q8 [facility] PRN Reason: Protocol Last Admin: 09/15/17 16:23 Dose: 100 mls/hr Dobutamine HCl/Dextrose (Dobutamine/Dextrose 5% 500mg/250ml) 500 mg in 250 mls @ 16.942 mls/hr IV .[id number] [facility]; 5 MCG/KG/MIN PRN Reason: Protocol Last Admin: 09/15/17 06:48 Dose: 5 mcg/kg/min, 16.942 mls/hr Lactobacillus Acidophilus (Bacid Acidophilus) 1 cap PO BID [facility] Last Admin: 09/15/17 16:17 Dose: 1 cap Magnesium Oxide (Mag-Ox) 800 mg PO DAILY [facility] Stop: 09/16/17 09:01 Ondansetron HCl (Zofran Inj) 4 mg IVP Q6 [facility] Last Admin: 09/15/17 16:25 Dose: 4 mg Oxycodone/Acetaminophen (Percocet 5/325 Mg Tab) 1 tab PO Q6 PRN PRN Reason: Pain, severe (8-10) Stop: 09/16/17 22:08 Last Admin: 09/15/17 10:01 Dose: 1 tab Tacrolimus (Prograf Cap) 0.5 mg PO Q12 [facility] Last Admin: 09/15/17 09:18 Dose: 0.5 mg Zolpidem Tartrate (Ambien) 5 mg PO HS PRN PRN Reason: Insomnia Last Admin: 09/14/17 21:28 Dose: 5 mg - Labs Labs: 09/14/17 05:30 09/15/17 04:33 PT 13.4 Seconds (9.8-13.1) H 09/14/17 05:30 INR 1.2 (0.9-1.2) 09/14/17 05:30 APTT 63.6 Seconds (25.6-37.1) H D 09/15/17 18:52
[2017-09-15 23:09] LABS: CREATININE, RANDOM URINE 41.9 mg/dL
[2017-09-16 07:30] LABS: CALCIUM 9.7 mg/dL (8.4-10.2)
[2017-09-16] MEDS: Heparin 25,000units in D5W 25,000 UNITS/250 ML BAG IV SCH (08:26)
--- NOTE | 2017-09-16 08:55 | RAD ---
Date of service: 09/15/2017 HISTORY: elevated pro bnp COMPARISON: Chest radiograph dated 09/14/2017 FINDINGS: LUNGS: Prominence of the pulmonary vasculature may be secondary to AP technique and/or pulmonary vascular congestion. PLEURA: Small right pleural effusion versus pleural thickening. No appreciable pneumothorax. CARDIOVASCULAR: Cardiomediastinal silhouette stably enlarged. OSSEOUS STRUCTURES: Unchanged. VISUALIZED UPPER ABDOMEN: Normal. OTHER FINDINGS: None. IMPRESSION: Prominence of the pulmonary vasculature may be secondary to AP technique and/or pulmonary vascular congestion. Small left pleural effusion versus pleural thickening.
[2017-09-16] MEDS ORDERED: Magnesium Oxide 400 mg Tab UD PO ONE (09:00)
[2017-09-16] MEDS: Lactobacillus Acidophilus 500 MU Cap PO SCH ×2 (09:14→16:32)
--- NOTE | 2017-09-16 09:22 | CP.PCM.PN ---
Subjective - Date & Time of Evaluation Date of Evaluation: 09/16/17 Time of Evaluation: 09:00 - Subjective Subjective: Pt seen for Dr. Tovar Resting comfortably in bed, has no symptoms (Laying in bed) Telemetry shows A Fib with HR that occ dips down to 30's Labs noted Await EP eval for poss VVI pacer implant Objective - Vital Signs/Intake and Output Vital Signs (last 24 hours): Temp Pulse Resp BP Pulse Ox 98.1 F 44 L 18 116/73 99 09/16/17 08:04 09/16/17 08:04 09/16/17 08:04 09/16/17 08:04 09/16/17 08:04 Intake and Output: 09/16/17 09/16/17 06:59 18:59 Intake Total 250 Balance 250 - Medications Medications: Current Medications Alprazolam (Xanax) 0.5 mg PO BID PRN PRN Reason: Agitation Calcium Acetate (Phoslo) 667 mg PO TID [facility] Famotidine (Pepcid) 20 mg PO DAILY [facility] Last Admin: 09/16/17 09:15 Dose: 20 mg Heparin Sodium/Dextrose (Heparin 25,000 Units/250ml In D5w) 25,000 units in 250 mls @ 10 mls/hr IV .[id number] [facility] PRN Reason: Protocol Last Admin: 09/16/17 08:26 Dose: 16 mls/hr Piperacillin Sod/Tazobactam (Sod 2.25 gm/ Sodium Chloride) 100 mls @ 100 mls/ hr IVPB Q8 [facility] PRN Reason: Protocol Last Admin: 09/16/17 09:16 Dose: 100 mls/hr Lactobacillus Acidophilus (Bacid Acidophilus) 1 cap PO BID [facility] Last Admin: 09/16/17 09:14 Dose: 1 cap Ondansetron HCl (Zofran Inj) 4 mg IVP Q6 [facility] Last Admin: 09/16/17 09:17 Dose: Not Given Oxycodone/Acetaminophen (Percocet 5/325 Mg Tab) 1 tab PO Q6 PRN PRN Reason: Pain, severe (8-10) Stop: 09/16/17 22:08 Last Admin: 09/15/17 10:01 Dose: 1 tab Tacrolimus (Prograf Cap) 0.5 mg PO Q12 [facility] Last Admin: 09/16/17 09:15 Dose: 0.5 mg Zolpidem Tartrate (Ambien) 5 mg PO HS PRN PRN Reason: Insomnia Last Admin: 09/15/17 22:45 Dose: 5 mg - Labs Labs: 09/14/17 05:30 09/16/17 05:30 PT 13.4 Seconds (9.8-13.1) H 09/14/17 05:30 INR 1.2 (0.9-1.2) 09/14/17 05:30 APTT 56.0 Seconds (25.6-37.1) H D 09/16/17 05:30
--- NOTE | 2017-09-16 10:55 | US ---
Date of service: 09/16/2017 PROCEDURE: Ultrasound of the Kidneys HISTORY: PIERRE COMPARISON: None available. TECHNIQUE: Sonogram of the kidneys. FINDINGS: RIGHT KIDNEY: Measures: 10.8 x 5.6 x 5.1 cm. Midpole cyst measuring 0.8 x 0.7 x 0.8 cm. Nonobstructive lower pole calculus measuring 0.5 x 0.5 x 0.2 cm. Normal in size, contour and echogenicity. No solid mass lesion or hydronephrosis visualized. LEFT KIDNEY: Measures: 11.2 x 5.0 x 5.1 cm. Upper pole cyst measuring 0.7 x 0.6 x 0.6 cm. Nonobstructive upper pole calculus measuring 0.4 x 0.3 x 0.3 cm. Nonobstructive midpole calculus measuring 0.6 x 0.6 x 0.3 cm. Normal in size, contour and echogenicity. No stone, solid mass lesion or hydronephrosis visualized. OTHER FINDINGS: Partially imaged splenomegaly measuring 14.6 cm. IMPRESSION: Bilateral nonobstructive renal calculi and small bilateral renal cysts. Splenomegaly.
--- NOTE | 2017-09-16 11:27 | CP.PCM.PN ---
Subjective - Date & Time of Evaluation Date of Evaluation: 09/16/17 Time of Evaluation: 11:26 - Subjective Subjective: Nephrology Consultation Note Assessment: Stable Acute Kidney Injury (N17.9) improving sys CHF UTI with sepsis hx of liver transplant Hypokalemia, hyperphosphatemia CKD Plan No acute need for renal replacement therapy at this time as renal function imrpving gradually. so far, pt had refused dialysis although now thinking to consider in future Hypertension control with meds as ordered. Patient not on ACEI/ARB due to recent PIERRE Monitor Input/Output, daily weights and renal function with basic metabolic panel cardiology following continue with phos binders check tacrolimus level today: sent started lasix 40 mg/day check urine Na/cr, pr/cr, renal sonogram Dose meds/antibiotics for reduced GFR. Avoid fleets enema/magnesium based laxatives. Avoid nephrotoxins/NSAIDs/ iodinated contrast (unless needed emergently) Glycemic control Further work up for as per primary team Thanks for allowing me to participate in care of your patient. Will follow patient with you. Please call if any Qs Dr Oscar Linn Office: [phone] Subjective: Noted events overnight. Patients feels okay. Denies chest pain, palpitation, shortness of breath, leg swelling. All other negative except nausea Physical Examination: General Appearance: Comfortable, in no acute respiratory distress, co-operative . Vitals reviewed and noted as below Head; Atraumatic, normocephalic ENT: no ulcers no thrush. Tongue is midline. Oropharynx: no rash or ulcers. EYES: Pupils are equal, round and reactive to light accommodation. Eye muscles and extraocular movement intact. Sclera is anicteric. Neck; supple no lymphadenopathy, no thyromegaly or bruit Lungs: Normal respiratory rate/effort. Breath sounds bilateral decresaed at bases with few crackles Heart: Normal rate. s1s2 normal. No rub or gallop. Extremities: trace edema. No varicose veins Neurological: Patient is alert, awake and oriented to person, place and time. No focal deficit. Strength bilateral appropriate and equal Skin: Warm and dry. Normal turgor. No rash. Palpitation: Normal elasticity for age Abdomen: Abdomen is soft. Bowel sounds +. There is no abdominal tenderness, no guarding/rigidity no organomegaly Psych: normal insight and normal affect/mood. irritable MSK: no joint tenderness or swelling. Digits and nails normal, no deformity : kidney or bladder not palpable Labs/imaging reviewed. Past medical history, past surgical history, family history, social history, allergy reviewed and noted as below Family hx: no hx of CKD. Rest non-contributory cxr pulm congestion Objective - Vital Signs/Intake and Output Vital Signs (last 24 hours): Temp Pulse Resp BP Pulse Ox 98.1 F 44 L 18 116/73 99 09/16/17 08:04 09/16/17 08:04 09/16/17 08:04 09/16/17 08:04 09/16/17 08:04 Intake and Output: 09/16/17 09/16/17 06:59 18:59 Intake Total 250 Balance 250 - Medications Medications: Current Medications Alprazolam (Xanax) 0.5 mg PO BID PRN PRN Reason: Agitation Calcium Acetate (Phoslo) 667 mg PO TID [facility] Last Admin: 09/16/17 09:19 Dose: 667 mg Famotidine (Pepcid) 20 mg PO DAILY [facility] Last Admin: 09/16/17 09:15 Dose: 20 mg Piperacillin Sod/Tazobactam (Sod 2.25 gm/ Sodium Chloride) 100 mls @ 100 mls/ hr IVPB Q8 [facility] PRN Reason: Protocol Last Admin: 09/16/17 09:16 Dose: 100 mls/hr Lactobacillus Acidophilus (Bacid Acidophilus) 1 cap PO BID [facility] Last Admin: 09/16/17 09:14 Dose: 1 cap Ondansetron HCl (Zofran Inj) 4 mg IVP Q6 [facility] Last Admin: 09/16/17 09:17 Dose: Not Given Oxycodone/Acetaminophen (Percocet 5/325 Mg Tab) 1 tab PO Q6 PRN PRN Reason: Pain, severe (8-10) Stop: 09/16/17 22:08 Last Admin: 09/15/17 10:01 Dose: 1 tab Tacrolimus (Prograf Cap) 0.5 mg PO Q12 [facility] Last Admin: 09/16/17 09:15 Dose: 0.5 mg Zolpidem Tartrate (Ambien) 5 mg PO HS PRN PRN Reason: Insomnia Last Admin: 09/15/17 22:45 Dose: 5 mg - Labs Labs: 09/14/17 05:30 09/16/17 05:30 PT 13.4 Seconds (9.8-13.1) H 09/14/17 05:30 INR 1.2 (0.9-1.2) 09/14/17 05:30 APTT 56.0 Seconds (25.6-37.1) H D 09/16/17 05:30
--- NOTE | 2017-09-16 12:00 | CP.PCM.PN ---
Subjective - Date & Time of Evaluation Date of Evaluation: 09/16/17 Time of Evaluation: 12:02 - Subjective Subjective: NAUSEA IMPROVING NO CHEST PAINS/SOB Objective - Vital Signs/Intake and Output Vital Signs (last 24 hours): Temp Pulse Resp BP Pulse Ox 98.1 F 44 L 18 116/73 99 09/16/17 08:04 09/16/17 08:04 09/16/17 08:04 09/16/17 08:04 09/16/17 08:04 Intake and Output: 09/16/17 09/16/17 06:59 18:59 Intake Total 250 Balance 250 - Medications Medications: Current Medications Alprazolam (Xanax) 0.5 mg PO BID PRN PRN Reason: Agitation Calcium Acetate (Phoslo) 667 mg PO TID [facility] Last Admin: 09/16/17 09:19 Dose: 667 mg Famotidine (Pepcid) 20 mg PO DAILY [facility] Last Admin: 09/16/17 09:15 Dose: 20 mg Furosemide (Lasix) 40 mg PO DAILY [facility] Stop: 09/20/17 09:01 Piperacillin Sod/Tazobactam (Sod 2.25 gm/ Sodium Chloride) 100 mls @ 100 mls/ hr IVPB Q8 [facility] PRN Reason: Protocol Last Admin: 09/16/17 09:16 Dose: 100 mls/hr Lactobacillus Acidophilus (Bacid Acidophilus) 1 cap PO BID [facility] Last Admin: 09/16/17 09:14 Dose: 1 cap Ondansetron HCl (Zofran Inj) 4 mg IVP Q6 [facility] Last Admin: 09/16/17 09:17 Dose: Not Given Oxycodone/Acetaminophen (Percocet 5/325 Mg Tab) 1 tab PO Q6 PRN PRN Reason: Pain, severe (8-10) Stop: 09/16/17 22:08 Last Admin: 09/15/17 10:01 Dose: 1 tab Tacrolimus (Prograf Cap) 0.5 mg PO Q12 [facility] Last Admin: 09/16/17 09:15 Dose: 0.5 mg Zolpidem Tartrate (Ambien) 5 mg PO HS PRN PRN Reason: Insomnia Last Admin: 09/15/17 22:45 Dose: 5 mg - Labs Labs: 09/14/17 05:30 09/16/17 05:30 PT 13.4 Seconds (9.8-13.1) H 09/14/17 05:30 INR 1.2 (0.9-1.2) 09/14/17 05:30 APTT 56.0 Seconds (25.6-37.1) H D 09/16/17 05:30 - Constitutional Appears: Chronically Ill - Head Exam Head Exam: ATRAUMATIC, NORMAL INSPECTION, NORMOCEPHALIC - Eye Exam Eye Exam: EOMI, Normal appearance, PERRL Pupil Exam: NORMAL ACCOMODATION, PERRL - ENT Exam ENT Exam: Mucous Membranes Moist, Normal Exam - Neck Exam Neck Exam: Full ROM, Normal Inspection. absent: Lymphadenopathy - Respiratory Exam Respiratory Exam: Decreased Breath Sounds, Prolonged Expiratory Phase, NORMAL BREATHING PATTERN - Cardiovascular Exam Cardiovascular Exam: Irregular Rhythm, +S1, +S2. absent: Murmur - GI/Abdominal Exam GI & Abdominal Exam: Soft, Normal Bowel Sounds. absent: Tenderness - Rectal Exam Rectal Exam: NORMAL INSPECTION - Extremities Exam Extremities Exam: Full ROM, Normal Capillary Refill, Normal Inspection, Pedal Edema. absent: Joint Swelling - Back Exam Back Exam: NORMAL INSPECTION - Neurological Exam Neurological Exam: Abnormal Gait, Alert, Awake, CN II-XII Intact, Oriented x3 - Psychiatric Exam Psychiatric exam: Normal Affect, Normal Mood - Skin Skin Exam: Dry, Intact, Normal Color, Warm Assessment and Plan - Assessment and Plan (Free Text) Assessment: SYSTOLIC CHF UTI WITH SEPSIS ACUTE ON CHRONIC KIDNEY DZ S/P LIVER TRANSPLANT HYPOKALEMIA RESOLVED NAUSEA--IMPROVED ARRYTHMIAS Plan: CARDIOLOGY AND NEPHROLOGY CONSULTS APPRECIATED CONTINUE RX ORDERED
[2017-09-16] MEDS ORDERED: Heparin 25,000units in D5W 25,000 UNITS/250 ML BAG IV SCH ×2 (12:15→23:46)
[2017-09-17 06:17] LABS: CALCIUM 9.8 mg/dL (8.4-10.2)
--- NOTE | 2017-09-17 08:16 | CP.PCM.PN ---
Subjective - Date & Time of Evaluation Date of Evaluation: 09/17/17 Time of Evaluation: 08:21 - Subjective Subjective: FEELS BETTER LESS DYSPNEIC NO CHEST PAINS STILL COUGHING BUT HAS MINIMAL SPUTUM PRODUCTION Objective - Vital Signs/Intake and Output Vital Signs (last 24 hours): Temp Pulse Resp BP Pulse Ox 97.4 F L 39 L 18 116/73 98 09/17/17 05:00 09/17/17 05:00 09/17/17 05:00 09/17/17 05:00 09/17/17 05:00 Intake and Output: 09/17/17 09/17/17 06:59 18:59 Intake Total 292 Output Total 600 Balance -308 - Medications Medications: Current Medications Alprazolam (Xanax) 0.5 mg PO BID PRN PRN Reason: Agitation Calcium Acetate (Phoslo) 667 mg PO TID [facility] Last Admin: 09/16/17 16:28 Dose: 667 mg Famotidine (Pepcid) 20 mg PO DAILY [facility] Last Admin: 09/16/17 09:15 Dose: 20 mg Furosemide (Lasix) 40 mg PO DAILY [facility] Stop: 09/20/17 09:01 Last Admin: 09/16/17 13:18 Dose: 40 mg Piperacillin Sod/Tazobactam (Sod 2.25 gm/ Sodium Chloride) 100 mls @ 100 mls/ hr IVPB Q8 [facility] PRN Reason: Protocol Last Admin: 09/17/17 01:32 Dose: 100 mls/hr Heparin Sodium/Dextrose (Heparin 25,000 Units/250ml In D5w) 25,000 units in 250 mls @ 14 mls/hr IV .[id number] [facility] PRN Reason: Protocol Lactobacillus Acidophilus (Bacid Acidophilus) 1 cap PO BID [facility] Last Admin: 09/16/17 16:32 Dose: 1 cap Ondansetron HCl (Zofran Inj) 4 mg IVP Q6 [facility] Last Admin: 09/17/17 04:30 Dose: Not Given Tacrolimus (Prograf Cap) 0.5 mg PO Q12 [facility] Last Admin: 09/16/17 21:00 Dose: 0.5 mg Zolpidem Tartrate (Ambien) 5 mg PO HS PRN PRN Reason: Insomnia Last Admin: 09/16/17 22:34 Dose: 5 mg - Labs Labs: 09/14/17 05:30 09/17/17 05:26 PT 13.4 Seconds (9.8-13.1) H 09/14/17 05:30 INR 1.2 (0.9-1.2) 09/14/17 05:30 APTT 65.4 Seconds (25.6-37.1) H D 09/17/17 05:34 - Constitutional Appears: No Acute Distress - Head Exam Head Exam: ATRAUMATIC, NORMAL INSPECTION, NORMOCEPHALIC - Eye Exam Eye Exam: EOMI, Normal appearance, PERRL Pupil Exam: NORMAL ACCOMODATION, PERRL - ENT Exam ENT Exam: Mucous Membranes Moist, Normal Exam - Neck Exam Neck Exam: Full ROM, Normal Inspection. absent: Lymphadenopathy - Respiratory Exam Respiratory Exam: Prolonged Expiratory Phase, NORMAL BREATHING PATTERN - Cardiovascular Exam Cardiovascular Exam: REGULAR RHYTHM, +S1, +S2. absent: Murmur - GI/Abdominal Exam GI & Abdominal Exam: Soft, Normal Bowel Sounds. absent: Tenderness - Rectal Exam Rectal Exam: NORMAL INSPECTION - Extremities Exam Extremities Exam: Full ROM, Normal Capillary Refill, Normal Inspection, Pedal Edema. absent: Joint Swelling Additional comments: LESS PEDAL EDEMA - Back Exam Back Exam: NORMAL INSPECTION - Neurological Exam Neurological Exam: Alert, Awake, CN II-XII Intact, Normal Gait, Oriented x3 - Psychiatric Exam Psychiatric exam: Normal Affect, Normal Mood - Skin Skin Exam: Dry, Intact, Normal Color, Warm Assessment and Plan - Assessment and Plan (Free Text) Assessment: CHF IMPROVING ARRYTHMIAS ESRD RENAL CALCULI--NON-OBSTRUCTING/CYSTS SPLENOMEGALY HYPOKALEMIA--RESOLVED Plan: CONTINUE CURRENT RX CONTINUE HEPARIN DRIP AWAIT EPS CARDIOLOGY EVAL PHYSICAL THERAPY
[2017-09-17] MEDS: Heparin 25,000units in D5W 25,000 UNITS/250 ML BAG IV SCH (08:45)
[2017-09-17] MEDS: Lactobacillus Acidophilus 500 MU Cap PO SCH ×2 (08:54→17:18)
--- NOTE | 2017-09-17 09:16 | CP.PCM.PN ---
Subjective - Date & Time of Evaluation Date of Evaluation: 09/17/17 Time of Evaluation: 09:16 - Subjective Subjective: patient sitting up in bed appears to be comfortable Appetite coming back No nausea or vomiting And the patient feeling much better Objective - Vital Signs/Intake and Output Vital Signs (last 24 hours): Temp Pulse Resp BP Pulse Ox 97.4 F L 39 L 18 135/95 H 98 09/17/17 05:00 09/17/17 05:00 09/17/17 05:00 09/17/17 08:55 09/17/17 05:00 Intake and Output: 09/17/17 09/17/17 06:59 18:59 Intake Total 292 Output Total 600 Balance -308 - Medications Medications: Current Medications Alprazolam (Xanax) 0.5 mg PO BID PRN PRN Reason: Agitation Calcium Acetate (Phoslo) 667 mg PO TID [facility] Last Admin: 09/17/17 08:55 Dose: 667 mg Famotidine (Pepcid) 20 mg PO DAILY [facility] Last Admin: 09/17/17 08:55 Dose: 20 mg Furosemide (Lasix) 40 mg PO DAILY [facility] Stop: 09/20/17 09:01 Last Admin: 09/17/17 08:55 Dose: 40 mg Piperacillin Sod/Tazobactam (Sod 2.25 gm/ Sodium Chloride) 100 mls @ 100 mls/ hr IVPB Q8 [facility] PRN Reason: Protocol Last Admin: 09/17/17 08:56 Dose: 100 mls/hr Heparin Sodium/Dextrose (Heparin 25,000 Units/250ml In D5w) 25,000 units in 250 mls @ 14 mls/hr IV .[id number] [facility] PRN Reason: Protocol Last Admin: 09/17/17 08:45 Dose: 14 mls/hr Lactobacillus Acidophilus (Bacid Acidophilus) 1 cap PO BID [facility] Last Admin: 09/17/17 08:54 Dose: 1 cap Ondansetron HCl (Zofran Inj) 4 mg IVP Q6 [facility] Last Admin: 09/17/17 04:30 Dose: Not Given Tacrolimus (Prograf Cap) 0.5 mg PO Q12 [facility] Last Admin: 09/17/17 08:56 Dose: 0.5 mg Zolpidem Tartrate (Ambien) 5 mg PO HS PRN PRN Reason: Insomnia Last Admin: 09/16/17 22:34 Dose: 5 mg - Labs Labs: 09/14/17 05:30 09/17/17 05:26 PT 13.4 Seconds (9.8-13.1) H 09/14/17 05:30 INR 1.2 (0.9-1.2) 09/14/17 05:30 APTT 65.4 Seconds (25.6-37.1) H D 09/17/17 05:34 - Constitutional Appears: No Acute Distress - ENT Exam ENT Exam: Mucous Membranes Moist - Respiratory Exam Respiratory Exam: NORMAL BREATHING PATTERN. absent: Chest Wall Tenderness - Cardiovascular Exam Cardiovascular Exam: absent: Gallop - GI/Abdominal Exam GI & Abdominal Exam: Soft, Normal Bowel Sounds - Extremities Exam Extremities Exam: absent: Calf Tenderness - Back Exam Back Exam: absent: CVA tenderness (L), CVA tenderness (R) - Neurological Exam Neurological Exam: Alert - Psychiatric Exam Psychiatric exam: Normal Affect - Skin Skin Exam: absent: Cyanosis Assessment and Plan (1) Chronic kidney disease, stage V Assessment & Plan: acute kidney injury superimposed on chronic kidney disease perhaps is stage IV it's not clear however serum creatinine improving B UN came down to around 82 . Kidney function continued to improve and the patient clinically continued to improve Hypokalemia . Potassium corrected Decompensated congestive heart failure as per cardiology recommendation Cardiac arrhythmia with atrial fibrillation as per cardiology. Status post liver transplant many years ago patient is receiving Prograf we need to do the level of the prograf of if he is staying in this hospital continue monitoring electrolyte Abnormal elevated serum bilirubin continue monitoring hyperphosphatemia serum phosphorus 5.6 we will add calcium ac secondary hyperparathyroidism serum PTH 189 we will add calcitriol Serum tacrolimus still pending Status: Acute (2) Liver transplant disorder Status: Acute (3) Acute on chronic systolic (congestive) heart failure Status: Acute (4) Chronic atrial fibrillation Status: Acute (5) Hypokalemia Status: Acute
--- NOTE | 2017-09-17 09:22 | IP.NPCORE ---
Heart Failure Core Measure - Heart Failure Ejection Fraction: Less Than 40 %
--- NOTE | 2017-09-17 17:21 | CP.PCM.PN ---
Subjective - Date & Time of Evaluation Date of Evaluation: 09/17/17 Time of Evaluation: 17:10 - Subjective Subjective: COVERAGE FOR DR CHACON Patient states he feels better than last week. he is aware of pending EP consultation. Objective - Vital Signs/Intake and Output Vital Signs (last 24 hours): Temp Pulse Resp BP Pulse Ox 97.4 F L 33 L 20 114/71 98 09/17/17 15:38 09/17/17 15:38 09/17/17 15:38 09/17/17 15:38 09/17/17 15:38 Intake and Output: 09/17/17 09/17/17 06:59 18:59 Intake Total 292 Output Total 600 Balance -308 - Medications Medications: Current Medications Alprazolam (Xanax) 0.5 mg PO BID PRN PRN Reason: Agitation Calcitriol (Rocaltrol) 0.25 mcg PO DAILY [facility] Last Admin: 09/17/17 12:26 Dose: 0.25 mcg Calcium Acetate (Phoslo) 667 mg PO TID [facility] Last Admin: 09/17/17 17:18 Dose: 667 mg Famotidine (Pepcid) 20 mg PO DAILY [facility] Last Admin: 09/17/17 08:55 Dose: 20 mg Furosemide (Lasix) 40 mg PO DAILY [facility] Stop: 09/20/17 09:01 Last Admin: 09/17/17 08:55 Dose: 40 mg Piperacillin Sod/Tazobactam (Sod 2.25 gm/ Sodium Chloride) 100 mls @ 100 mls/ hr IVPB Q8 [facility] PRN Reason: Protocol Last Admin: 09/17/17 17:19 Dose: 100 mls/hr Heparin Sodium/Dextrose (Heparin 25,000 Units/250ml In D5w) 25,000 units in 250 mls @ 14 mls/hr IV .[id number] [facility] PRN Reason: Protocol Last Admin: 09/17/17 08:45 Dose: 14 mls/hr Lactobacillus Acidophilus (Bacid Acidophilus) 1 cap PO BID [facility] Last Admin: 09/17/17 17:18 Dose: 1 cap Ondansetron HCl (Zofran Inj) 4 mg IVP Q6 [facility] Last Admin: 09/17/17 17:18 Dose: Not Given Tacrolimus (Prograf Cap) 0.5 mg PO Q12 [facility] Last Admin: 09/17/17 08:56 Dose: 0.5 mg Zolpidem Tartrate (Ambien) 5 mg PO HS PRN PRN Reason: Insomnia Last Admin: 09/16/17 22:34 Dose: 5 mg - Labs Labs: 09/14/17 05:30 09/17/17 05:26 PT 13.4 Seconds (9.8-13.1) H 09/14/17 05:30 INR 1.2 (0.9-1.2) 09/14/17 05:30 APTT 64.0 Seconds (25.6-37.1) H 09/17/17 14:58 - Constitutional Appears: Chronically Ill - Head Exam Head Exam: NORMAL INSPECTION - Eye Exam Eye Exam: Normal appearance - ENT Exam ENT Exam: Mucous Membranes Moist - Neck Exam Neck Exam: Full ROM - Respiratory Exam Respiratory Exam: Decreased Breath Sounds - Cardiovascular Exam Cardiovascular Exam: Irregular Rhythm - GI/Abdominal Exam GI & Abdominal Exam: Normal Bowel Sounds - Rectal Exam Rectal Exam: Deferred - Extremities Exam Extremities Exam: Pedal Edema - Back Exam Back Exam: NORMAL INSPECTION - Neurological Exam Neurological Exam: Alert - Psychiatric Exam Psychiatric exam: Normal Affect - Skin Skin Exam: Normal Color Assessment and Plan (1) Acute on chronic systolic (congestive) heart failure Assessment & Plan: improved with dobutamine. will continue Status: Acute (2) Chronic atrial fibrillation Assessment & Plan: has periods of slow ventricular response will continue anticaogulation. will benefit from biventricular pacing. Status: Acute
[2017-09-18 05:59] LABS: MEAN CELL VOLUME 84.5 fl (80.0-94.0); MEAN CORPUSCULAR HEMOGLOBIN 27.5 pg (27.0-31.0); MEAN CORPUSCULAR HGB CONC 32.5 g/dL (33.0-37.0); RBC 4.38 Mil/uL (4.40-5.90); RED CELL DISTRIBUTION WIDTH 21.2 % (11.5-14.5)
[2017-09-18 06:23] LABS: ALBUMIN 3.4 g/dL (3.5-5.0); CALCIUM 9.4 mg/dL (8.4-10.2)
[2017-09-18] MEDS ORDERED: Heparin25000 units/250ml 1/2NS 25,000 UNITS/250 ML BAG IV ONE (08:29)
[2017-09-18] MEDS: Heparin 25,000units in D5W 25,000 UNITS/250 ML BAG IV SCH (08:32)
[2017-09-18] MEDS: Lactobacillus Acidophilus 500 MU Cap PO SCH ×2 (08:34→17:09)
--- NOTE | 2017-09-18 09:35 | CP.PCM.PN ---
Subjective - Date & Time of Evaluation Date of Evaluation: 09/18/17 Time of Evaluation: 09:37 - Subjective Subjective: FEELS BETTER SOB LESS NO CHEST PAINS TOLERATING DIET PEDAL EDEMA LESS Objective - Vital Signs/Intake and Output Vital Signs (last 24 hours): Temp Pulse Resp BP Pulse Ox 97.8 F 40 L 20 128/77 97 09/18/17 08:33 09/18/17 08:33 09/18/17 08:33 09/18/17 08:35 09/18/17 08:33 Intake and Output: 09/18/17 09/18/17 06:59 18:59 Intake Total 250 Balance 250 - Medications Medications: Current Medications Alprazolam (Xanax) 0.5 mg PO BID PRN PRN Reason: Agitation Calcitriol (Rocaltrol) 0.25 mcg PO DAILY [facility] Last Admin: 09/18/17 08:35 Dose: 0.25 mcg Calcium Acetate (Phoslo) 667 mg PO TID [facility] Last Admin: 09/18/17 08:35 Dose: 667 mg Famotidine (Pepcid) 20 mg PO DAILY [facility] Last Admin: 09/18/17 08:35 Dose: 20 mg Furosemide (Lasix) 40 mg PO DAILY [facility] Stop: 09/20/17 09:01 Last Admin: 09/18/17 08:35 Dose: 40 mg Piperacillin Sod/Tazobactam (Sod 2.25 gm/ Sodium Chloride) 100 mls @ 100 mls/ hr IVPB Q8 [facility] PRN Reason: Protocol Last Admin: 09/18/17 08:39 Dose: 100 mls/hr Lactobacillus Acidophilus (Bacid Acidophilus) 1 cap PO BID [facility] Last Admin: 09/18/17 08:34 Dose: 1 cap Ondansetron HCl (Zofran Inj) 4 mg IVP Q6 [facility] Last Admin: 09/17/17 21:39 Dose: Not Given Tacrolimus (Prograf Cap) 0.5 mg PO Q12 [facility] Last Admin: 09/18/17 08:35 Dose: 0.5 mg Zolpidem Tartrate (Ambien) 5 mg PO HS PRN PRN Reason: Insomnia Last Admin: 09/17/17 22:30 Dose: 5 mg - Labs Labs: 09/18/17 04:00 09/18/17 05:15 PT 13.4 Seconds (9.8-13.1) H 09/14/17 05:30 INR 1.2 (0.9-1.2) 09/14/17 05:30 APTT 64.6 Seconds (25.6-37.1) H 09/18/17 05:15 - Constitutional Appears: No Acute Distress - Head Exam Head Exam: ATRAUMATIC, NORMAL INSPECTION, NORMOCEPHALIC - Eye Exam Eye Exam: EOMI, Normal appearance, PERRL Pupil Exam: NORMAL ACCOMODATION, PERRL - ENT Exam ENT Exam: Mucous Membranes Moist, Normal Exam - Neck Exam Neck Exam: Full ROM, Normal Inspection. absent: Lymphadenopathy - Respiratory Exam Respiratory Exam: Prolonged Expiratory Phase, NORMAL BREATHING PATTERN - Cardiovascular Exam Cardiovascular Exam: Irregular Rhythm, +S1, +S2. absent: Murmur - GI/Abdominal Exam GI & Abdominal Exam: Soft, Normal Bowel Sounds. absent: Tenderness - Rectal Exam Rectal Exam: NORMAL INSPECTION - Extremities Exam Extremities Exam: Full ROM, Normal Capillary Refill, Normal Inspection. absent : Joint Swelling, Pedal Edema - Back Exam Back Exam: NORMAL INSPECTION - Neurological Exam Neurological Exam: Abnormal Gait, Alert, Awake, CN II-XII Intact, Oriented x3 - Psychiatric Exam Psychiatric exam: Normal Affect, Normal Mood - Skin Skin Exam: Dry, Intact, Normal Color, Warm Assessment and Plan - Assessment and Plan (Free Text) Assessment: CHF IMPROVING ARRYTHMIAS ESRD HX OF LIVER TRANSPLANT Plan: CONTINUE CURRENT RX FOR POSSIBLE EPS STUDIES/PACEMAKER PLACEMENT
--- NOTE | 2017-09-18 11:25 | CP.PCM.PN ---
Subjective - Date & Time of Evaluation Date of Evaluation: 09/18/17 Time of Evaluation: 11:24 - Subjective Subjective: patient awake and conscious is feeling much better. Although continued to complain of chronic shortness of breath. Objective - Vital Signs/Intake and Output Vital Signs (last 24 hours): Temp Pulse Resp BP Pulse Ox 97.8 F 40 L 20 128/77 97 09/18/17 08:33 09/18/17 08:33 09/18/17 08:33 09/18/17 08:35 09/18/17 08:33 Intake and Output: 09/18/17 09/18/17 06:59 18:59 Intake Total 250 Balance 250 - Medications Medications: Current Medications Alprazolam (Xanax) 0.5 mg PO BID PRN PRN Reason: Agitation Calcitriol (Rocaltrol) 0.25 mcg PO DAILY [facility] Last Admin: 09/18/17 08:35 Dose: 0.25 mcg Calcium Acetate (Phoslo) 667 mg PO TID [facility] Last Admin: 09/18/17 08:35 Dose: 667 mg Famotidine (Pepcid) 20 mg PO DAILY [facility] Last Admin: 09/18/17 08:35 Dose: 20 mg Furosemide (Lasix) 40 mg PO DAILY [facility] Stop: 09/20/17 09:01 Last Admin: 09/18/17 08:35 Dose: 40 mg Piperacillin Sod/Tazobactam (Sod 2.25 gm/ Sodium Chloride) 100 mls @ 100 mls/ hr IVPB Q8 [facility] PRN Reason: Protocol Last Admin: 09/18/17 08:39 Dose: 100 mls/hr Lactobacillus Acidophilus (Bacid Acidophilus) 1 cap PO BID [facility] Last Admin: 09/18/17 08:34 Dose: 1 cap Ondansetron HCl (Zofran Inj) 4 mg IVP Q6 [facility] Last Admin: 09/17/17 21:39 Dose: Not Given Tacrolimus (Prograf Cap) 0.5 mg PO Q12 [facility] Last Admin: 09/18/17 08:35 Dose: 0.5 mg Zolpidem Tartrate (Ambien) 5 mg PO HS PRN PRN Reason: Insomnia Last Admin: 09/17/17 22:30 Dose: 5 mg - Labs Labs: 09/18/17 04:00 07/31/18 05:15 PT 13.4 Seconds (9.8-13.1) H 09/14/17 05:30 INR 1.2 (0.9-1.2) 09/14/17 05:30 APTT 64.6 Seconds (25.6-37.1) H 09/18/17 05:15 - Constitutional Appears: No Acute Distress - ENT Exam ENT Exam: Mucous Membranes Moist - Neck Exam Neck Exam: absent: Lymphadenopathy - Respiratory Exam Respiratory Exam: NORMAL BREATHING PATTERN. absent: Chest Wall Tenderness - Cardiovascular Exam Cardiovascular Exam: Irregular Rhythm. absent: Rubs - GI/Abdominal Exam GI & Abdominal Exam: Soft, Normal Bowel Sounds - Extremities Exam Extremities Exam: absent: Calf Tenderness - Back Exam Back Exam: absent: CVA tenderness (L), CVA tenderness (R) - Neurological Exam Neurological Exam: Alert - Psychiatric Exam Psychiatric exam: Normal Affect - Skin Skin Exam: absent: Cyanosis Assessment and Plan (1) Chronic kidney disease, stage V Status: Acute (2) Liver transplant disorder Status: Acute (3) Acute on chronic systolic (congestive) heart failure Status: Acute (4) Chronic atrial fibrillation Status: Acute (5) Hypokalemia Status: Acute (6) Chronic kidney disease, stage IV (severe) Assessment & Plan: acute kidney injury superimposed on chronic kidney disease perhaps is stage IV it's not clear however serum creatinine improving B UN came down to around 82 . Kidney function continued to improve and the patient clinically continued to improve Hypokalemia . Potassium corrected Decompensated congestive heart failure as per cardiology recommendation Cardiac arrhythmia with atrial fibrillation as per cardiology. Status post liver transplant many years ago patient is receiving Prograf we need to do the level of the prograf of if he is staying in this hospital continue monitoring electrolyte Abnormal elevated serum bilirubin continue monitoring hyperphosphatemia serum phosphorus 5.6 we will add calcium ac secondary hyperparathyroidism serum PTH 189 we will add calcitriol Serum tacrolimus still pending Status: Acute
--- NOTE | 2017-09-18 13:29 | CON ---
DATE: 09/17/2017 ELECTROPHYSIOLOGY CONSULTATION REASON FOR EVALUATION: 1. Atrial fibrillation. 2. Severe bradycardia. 3. Systolic heart failure. 4. Hypertension. I have been asked to see this patient personally by Dr. Raimundo Tovar. HISTORY OF PRESENT ILLNESS: Mr. Avelino Barber is a 62-year-old male with past medical history significant for systolic heart failure, managed by Dr. Ley at [facility] in [facility]; chronic renal failure; hypertension; history of liver transplantation, who presented on the day of admission, 09/12/2017, with progressive shortness of breath and profound weakness. Two weeks prior to presenting to [facility], the patient had been admitted for a prolonged hospitalization at [facility], at which point the patient was said to have diuresed "a 100 pounds." The patient had been feeling well at home except for the day of admission, the patient had been ambulating at home, decided to go to the bathroom, at which point while sitting on the toilet, the patient became profoundly weak and unable to get up. The patient then was able to mobilize himself in some way with the help of his friend and ultimately some firemen, who responded to a 911 emergency call and he was placed in bed. He was not taken to the emergency department at that point. From bed, he was unable to arise and continued to be significantly weak. The patient was seen in the emergency department by Dr. Shaneka Allen, and was admitted to the Medical Service of Dr. Arriaga. He was seen and evaluated, placed on dobutamine to increase cardiac output. The patient's condition did gradually improve. He was found to have significant bradycardia despite being on dobutamine for ionotropic support, underlying rhythm with atrial fibrillation and heart rate currently while in bed are in the 30s to 40s with very frequent 2 to 3 second pauses. Case had been discussed in detail with Dr. Tovar. Option of a biventricular pacemaker was discussed. Echocardiogram shows LV function within normal limits. REVIEW OF SYSTEMS: Constitutional symptoms include weakness. Examination of his HEENT is not significant for blind spots, blurred vision, decreased night vision, diplopia, discharge, exophthalmus, photophobia, pain. No other visual disturbances are noted. No hearing impairment or ringing in the ears, dysequilibrium, dizziness. No nasal discharge. No mouth or lip swelling is noted. Cardiovascular and respiratory review as per that in the history of present illness. The patient has poor functional status. Does ambulate normally with a walker. He has not been able to do that over the last few days. No complaints of abdominal pain, belching, bloating, or change in bowel habits. No urinary complaints. No frequent UTIs. No specific skin-related complaints. No psychiatric complaints. No heat or cold intolerance. No mention of sexual dysfunction. No easy bruising or bleeding. PHYSICAL EXAMINATION: GENERAL: A very pleasant, rather large male, in no acute distress. Able to speak in complete sentences. Presently prior electronic medical records indicate the patient had some degree of shortness of breath. NECK: Supple. No jugular venous distension. No carotid bruits. CHEST: Clear to auscultation in the upper zones. Mild crackles in the bases. CARDIOVASCULAR: Irregular bradycardic rhythm. S1 and S2. No S3 or S4. ABDOMEN: Soft, nontender, nondistended. Somewhat obese. Positive bowel sounds. EXTREMITIES: No cyanosis or clubbing. There is 1+ lower extremity edema. DIAGNOSTIC DATA: On review of EKG from 09/15/2017, shows underlying atrial fibrillation with primarily ventricular escape rhythm. On occasion, there are conducted intrinsic beats. There is no significant ST or T-wave changes. Ventricular escape complexes likely . Echocardiogram done on 09/12/2017, shows a left ventricular width of normal size with borderline mild concentric left ventricular hypertrophy. Normal systolic function is noted. Ejection fraction is 60% to 65%. Transmitral Doppler flow was consistent with grade II pseudonormal filling. Right ventricular is mildly dilated. Normal function. Left atrium is borderline dilated. Right atrium is mildly dilated. Aortic valve is normal in structure and no aortic regurgitation is present. Mitral valve appears to be thickened. No valvular stenosis. Mitral regurgitation is trace to mild. Tricuspid valve with mild tricuspid regurgitation. LV systolic pressure is estimated to be greater than 60 mmHg. Telemetry from today shows significant size bradycardia with heart rates occasionally dipped into the 30s, majority of rates in the 50s, heart rates to jump up into the 60s to 70s. On review of relevant lab work, the patient has a PTT of 56. The patient's renal function, BUN and creatinine are 88 and 2.7, potassium is 4.3, magnesium is 1.8, calcium is 9.7. Tacrolimus is 3.9 which is low for a level. CURRENT MEDICATIONS: Include alprazolam 0.5 mg p.o. b.i.d., calcitriol 0.25 mcg p.o. daily, calcium acetate 667 mg p.o. t.i.d., Pepcid 20 mg p.o. daily, Lasix 40 mg p.o. daily, heparin, sodium drip as noted. ASSESSMENT AND PLAN: 1. Atrial fibrillation, which appears to be chronic. The patient had been on Xarelto for prevention of cardioembolic stroke. The patient has been transitioned to heparin for now. At this point, rates in atrial fibrillation are significantly slow. It may be the cause of some of his profound weakness, for which he presented. We will continue heparin until now. 2. Severe bradycardia. At this point, the patient appears to be quite bradycardic at rest. At this point, it is unclear if the patient has chronotropic preserve. The patient is essentially bedridden at this point. If we were able to document chronotropic response of activity, one may reconsider the recommendation for chronotropic support in the form of a permanent pacemaker. Given the patient's history of heart failure and presumed heart failure with improved ejection fraction on echocardiogram done here in the hospital, we may consider biventricular permanent pacemaker. I did have a long discussion with the patient in regards to this option. He was aware that if it is not performed at [facility], we may consider taking it to [facility] once his heart failure therapy is finalized. I did have a detailed discussion with the patient during his hospitalization at [place]. He tells that the patient was told to be bradycardic; however, no mention of a permanent pacemaker was ever had. The patient is considering the option of a biventricular pacemaker again. The patient would like to have a discussion with his mother helper in [place]. If he is agreeable, permanent pacemaker in the form of biventricular permanent pacemaker would be done at [facility]. 3. Systolic heart failure, which at this point appears to be stable. 4. Hypertension, which at this point does not appear to be . 5. Pulmonary hypertension, which will be required to be monitored carefully and may be responsible for some of Mr. Barber's symptoms. The patient needs to notify the managing medical and cardiology teams in regards to for possible biventricular permanent pacemaker. If the patient is agreeable, please contact me. I can make the arrangements for him to go to [facility] for the aforementioned procedure. Thank you for allowing me to participate in the care of your patient. Please do not hesitate to call if you have any questions in regard to his care. . Robert Lanier MD
[2017-09-18] MEDS ORDERED: Heparin 25,000units in D5W 25,000 UNITS/250 ML BAG IV SCH (15:30)
--- NOTE | 2017-09-18 21:13 | CP.PCM.PN ---
Subjective - Date & Time of Evaluation Date of Evaluation: 09/18/17 Time of Evaluation: 21:10 - Subjective Subjective: discussed with Dr Lanier. seen by him today. patient is a candidate for BiV PPM if he agrees. Tentatively scheduled for Objective - Vital Signs/Intake and Output Vital Signs (last 24 hours): Temp Pulse Resp BP Pulse Ox 97.7 F 36 L 20 123/75 98 09/18/17 19:45 09/18/17 20:27 09/18/17 19:45 09/18/17 19:45 09/18/17 19:45 Intake and Output: 09/18/17 09/19/17 18:59 06:59 Intake Total 870 Output Total 900 Balance -30 - Medications Medications: Current Medications Alprazolam (Xanax) 0.5 mg PO BID PRN PRN Reason: Agitation Calcitriol (Rocaltrol) 0.25 mcg PO DAILY [facility] Last Admin: 09/18/17 08:35 Dose: 0.25 mcg Calcium Acetate (Phoslo) 667 mg PO TID [facility] Last Admin: 09/18/17 17:09 Dose: 667 mg Famotidine (Pepcid) 20 mg PO DAILY [facility] Last Admin: 09/18/17 08:35 Dose: 20 mg Furosemide (Lasix) 40 mg PO DAILY [facility] Stop: 09/20/17 09:01 Last Admin: 09/18/17 08:35 Dose: 40 mg Piperacillin Sod/Tazobactam (Sod 2.25 gm/ Sodium Chloride) 100 mls @ 100 mls/ hr IVPB Q8 [facility] PRN Reason: Protocol Last Admin: 09/18/17 17:08 Dose: 100 mls/hr Heparin Sodium/Dextrose (Heparin 25,000 Units/250ml In D5w) 25,000 units in 250 mls @ 14 mls/hr IV .[id number] [facility] PRN Reason: Protocol Lactobacillus Acidophilus (Bacid Acidophilus) 1 cap PO BID [facility] Last Admin: 09/18/17 17:09 Dose: 1 cap Ondansetron HCl (Zofran Inj) 4 mg IVP Q6 [facility] Last Admin: 09/18/17 17:09 Dose: 4 mg Tacrolimus (Prograf Cap) 0.5 mg PO Q12 [facility] Last Admin: 09/18/17 08:35 Dose: 0.5 mg Zolpidem Tartrate (Ambien) 5 mg PO HS PRN PRN Reason: Insomnia Last Admin: 09/17/17 22:30 Dose: 5 mg - Labs Labs: 09/18/17 04:00 09/18/17 05:15 PT 13.4 Seconds (9.8-13.1) H 09/14/17 05:30 INR 1.2 (0.9-1.2) 09/14/17 05:30 APTT 36.5 Seconds 09/18/17 12:35 Assessment and Plan (1) Acute on chronic systolic (congestive) heart failure Status: Acute (2) Chronic atrial fibrillation Status: Acute
[2017-09-19] MEDS: Lactobacillus Acidophilus 500 MU Cap PO SCH ×2 (08:26→19:36)
--- NOTE | 2017-09-19 09:18 | CP.PCM.PN ---
Subjective - Date & Time of Evaluation Date of Evaluation: 09/19/17 Time of Evaluation: 09:19 - Subjective Subjective: feels better c/o frequent awakenings by nurses and aides for vital signs agrees to go for pacemaker placement Objective - Vital Signs/Intake and Output Vital Signs (last 24 hours): Temp Pulse Resp BP Pulse Ox 98.2 F 44 L 20 142/89 98 09/19/17 08:00 09/19/17 08:00 09/19/17 08:00 09/19/17 08:26 09/19/17 08:00 - Medications Medications: Current Medications Alprazolam (Xanax) 0.5 mg PO BID PRN PRN Reason: Agitation Calcitriol (Rocaltrol) 0.25 mcg PO DAILY [facility] Last Admin: 09/19/17 08:26 Dose: 0.25 mcg Calcium Acetate (Phoslo) 667 mg PO TID [facility] Last Admin: 09/19/17 08:26 Dose: 667 mg Famotidine (Pepcid) 20 mg PO DAILY [facility] Last Admin: 09/19/17 08:27 Dose: 20 mg Furosemide (Lasix) 40 mg PO DAILY [facility] Stop: 09/20/17 09:01 Last Admin: 09/19/17 08:26 Dose: 40 mg Piperacillin Sod/Tazobactam (Sod 2.25 gm/ Sodium Chloride) 100 mls @ 100 mls/ hr IVPB Q8 [facility] PRN Reason: Protocol Last Admin: 09/19/17 08:27 Dose: 100 mls/hr Heparin Sodium/Dextrose (Heparin 25,000 Units/250ml In D5w) 25,000 units in 250 mls @ 14 mls/hr IV .[id number] [facility] PRN Reason: Protocol Last Admin: 09/19/17 04:20 Dose: 14 mls/hr Lactobacillus Acidophilus (Bacid Acidophilus) 1 cap PO BID [facility] Last Admin: 09/19/17 08:26 Dose: 1 cap Ondansetron HCl (Zofran Inj) 4 mg IVP Q6 [facility] Last Admin: 09/19/17 04:03 Dose: Not Given Tacrolimus (Prograf Cap) 0.5 mg PO Q12 [facility] Last Admin: 09/19/17 08:27 Dose: 0.5 mg Zolpidem Tartrate (Ambien) 5 mg PO HS PRN PRN Reason: Insomnia Last Admin: 09/18/17 22:00 Dose: 5 mg - Labs Labs: 09/18/17 04:00 09/18/17 05:15 PT 13.4 Seconds (9.8-13.1) H 09/14/17 05:30 INR 1.2 (0.9-1.2) 09/14/17 05:30 APTT 59.6 Seconds (25.6-37.1) H 09/19/17 02:30 - Constitutional Appears: No Acute Distress - Head Exam Head Exam: ATRAUMATIC, NORMAL INSPECTION, NORMOCEPHALIC - Eye Exam Eye Exam: EOMI, Normal appearance, PERRL Pupil Exam: NORMAL ACCOMODATION, PERRL - ENT Exam ENT Exam: Mucous Membranes Moist, Normal Exam - Neck Exam Neck Exam: Full ROM, Normal Inspection. absent: Lymphadenopathy - Respiratory Exam Respiratory Exam: Prolonged Expiratory Phase, Rales, NORMAL BREATHING PATTERN - Cardiovascular Exam Cardiovascular Exam: Irregular Rhythm, +S1, +S2. absent: Murmur - GI/Abdominal Exam GI & Abdominal Exam: Soft, Normal Bowel Sounds. absent: Tenderness - Rectal Exam Rectal Exam: NORMAL INSPECTION - Extremities Exam Extremities Exam: Full ROM, Normal Capillary Refill, Normal Inspection. absent : Joint Swelling, Pedal Edema - Back Exam Back Exam: NORMAL INSPECTION - Neurological Exam Neurological Exam: Alert, Awake, CN II-XII Intact, Normal Gait, Oriented x3 - Psychiatric Exam Psychiatric exam: Normal Affect, Normal Mood - Skin Skin Exam: Dry, Intact, Normal Color, Warm Assessment and Plan - Assessment and Plan (Free Text) Assessment: chf arrythmias esrd s/p liver transplant Plan: will inform dr apodaca to arrange for pacemaker placement and eps.
--- NOTE | 2017-09-19 13:23 | CP.PCM.PN ---
Subjective - Date & Time of Evaluation Date of Evaluation: 09/19/17 Time of Evaluation: 13:22 - Subjective Subjective: patient feeling somewhat better although he still complain of chronic shortness of breath. Objective - Vital Signs/Intake and Output Vital Signs (last 24 hours): Temp Pulse Resp BP Pulse Ox 97.5 F L 45 L 20 140/103 H 96 09/19/17 12:40 09/19/17 12:40 09/19/17 12:40 09/19/17 12:40 09/19/17 12:40 - Medications Medications: Current Medications Alprazolam (Xanax) 0.5 mg PO BID PRN PRN Reason: Agitation Calcitriol (Rocaltrol) 0.25 mcg PO DAILY [facility] Last Admin: 09/19/17 08:26 Dose: 0.25 mcg Calcium Acetate (Phoslo) 667 mg PO TID [facility] Last Admin: 09/19/17 08:26 Dose: 667 mg Famotidine (Pepcid) 20 mg PO DAILY [facility] Last Admin: 09/19/17 08:27 Dose: 20 mg Furosemide (Lasix) 40 mg PO DAILY [facility] Stop: 09/20/17 09:01 Last Admin: 09/19/17 08:26 Dose: 40 mg Piperacillin Sod/Tazobactam (Sod 2.25 gm/ Sodium Chloride) 100 mls @ 100 mls/ hr IVPB Q8 [facility] PRN Reason: Protocol Last Admin: 09/19/17 08:27 Dose: 100 mls/hr Heparin Sodium/Dextrose (Heparin 25,000 Units/250ml In D5w) 25,000 units in 250 mls @ 14 mls/hr IV .[id number] [facility] PRN Reason: Protocol Last Admin: 09/19/17 04:20 Dose: 14 mls/hr Lactobacillus Acidophilus (Bacid Acidophilus) 1 cap PO BID [facility] Last Admin: 09/19/17 08:26 Dose: 1 cap Ondansetron HCl (Zofran Inj) 4 mg IVP Q6 [facility] Last Admin: 09/19/17 10:59 Dose: 4 mg Tacrolimus (Prograf Cap) 0.5 mg PO Q12 [facility] Last Admin: 09/19/17 08:27 Dose: 0.5 mg Zolpidem Tartrate (Ambien) 5 mg PO HS PRN PRN Reason: Insomnia Last Admin: 09/18/17 22:00 Dose: 5 mg - Labs Labs: 09/18/17 04:00 09/18/17 05:15 PT 13.4 Seconds (9.8-13.1) H 09/14/17 05:30 INR 1.2 (0.9-1.2) 09/14/17 05:30 APTT 42.0 Seconds (25.6-37.1) H 09/19/17 10:05 - Constitutional Appears: No Acute Distress - Eye Exam Eye Exam: Conjunctival injection - ENT Exam ENT Exam: Mucous Membranes Moist - Neck Exam Neck Exam: absent: Lymphadenopathy - Respiratory Exam Respiratory Exam: NORMAL BREATHING PATTERN. absent: Chest Wall Tenderness - Cardiovascular Exam Cardiovascular Exam: Irregular Rhythm. absent: Gallop, Rubs - GI/Abdominal Exam GI & Abdominal Exam: Soft, Normal Bowel Sounds - Extremities Exam Extremities Exam: Calf Tenderness - Back Exam Back Exam: CVA tenderness (L), CVA tenderness (R) - Neurological Exam Neurological Exam: Alert - Psychiatric Exam Psychiatric exam: Normal Affect - Skin Skin Exam: absent: Cyanosis Assessment and Plan (1) Chronic kidney disease, stage V Assessment & Plan: acute kidney injury superimposed on chronic kidney disease perhaps is stage IV it's not clear however serum creatinine improving B UN came down to around 82 . Kidney function continued to improve and the patient clinically continued to improve Hypokalemia . Potassium corrected Decompensated congestive heart failure as per cardiology recommendation Cardiac arrhythmia with atrial fibrillation as per cardiology. Status post liver transplant many years ago patient is receiving Prograf we need to do the level of the prograf of if he is staying in this hospital continue monitoring electrolyte Abnormal elevated serum bilirubin continue monitoring hyperphosphatemia serum phosphorus 5.6 we will add calcium ac secondary hyperparathyroidism serum PTH 189 we will add calcitriol Serum tacrolimus 3.9 we will discuss with the patient to increase Prograf 1 mg in the morning and 0.5 mg p.m. Status: Acute (2) Liver transplant disorder Status: Acute (3) Acute on chronic systolic (congestive) heart failure Status: Acute (4) Chronic atrial fibrillation Status: Acute (5) Hypokalemia Status: Acute (6) Chronic kidney disease, stage IV (severe) Status: Acute
--- NOTE | 2017-09-19 13:24 | CP.PCM.PN ---
Objective - Vital Signs/Intake and Output Vital Signs (last 24 hours): Temp Pulse Resp BP Pulse Ox 97.5 F L 45 L 20 140/103 H 96 09/19/17 12:40 09/19/17 12:40 09/19/17 12:40 09/19/17 12:40 09/19/17 12:40 - Medications Medications: Current Medications Alprazolam (Xanax) 0.5 mg PO BID PRN PRN Reason: Agitation Calcitriol (Rocaltrol) 0.25 mcg PO DAILY [facility] Last Admin: 09/19/17 08:26 Dose: 0.25 mcg Calcium Acetate (Phoslo) 667 mg PO TID [facility] Last Admin: 09/19/17 08:26 Dose: 667 mg Famotidine (Pepcid) 20 mg PO DAILY [facility] Last Admin: 09/19/17 08:27 Dose: 20 mg Furosemide (Lasix) 40 mg PO DAILY [facility] Stop: 09/20/17 09:01 Last Admin: 09/19/17 08:26 Dose: 40 mg Piperacillin Sod/Tazobactam (Sod 2.25 gm/ Sodium Chloride) 100 mls @ 100 mls/ hr IVPB Q8 [facility] PRN Reason: Protocol Last Admin: 09/19/17 08:27 Dose: 100 mls/hr Heparin Sodium/Dextrose (Heparin 25,000 Units/250ml In D5w) 25,000 units in 250 mls @ 14 mls/hr IV .[id number] [facility] PRN Reason: Protocol Last Admin: 09/19/17 04:20 Dose: 14 mls/hr Lactobacillus Acidophilus (Bacid Acidophilus) 1 cap PO BID [facility] Last Admin: 09/19/17 08:26 Dose: 1 cap Ondansetron HCl (Zofran Inj) 4 mg IVP Q6 [facility] Last Admin: 09/19/17 10:59 Dose: 4 mg Tacrolimus (Prograf Cap) 0.5 mg PO Q12 [facility] Last Admin: 09/19/17 08:27 Dose: 0.5 mg Zolpidem Tartrate (Ambien) 5 mg PO HS PRN PRN Reason: Insomnia Last Admin: 09/18/17 22:00 Dose: 5 mg - Labs Labs: 09/18/17 04:00 09/18/17 05:15 PT 13.4 Seconds (9.8-13.1) H 09/14/17 05:30 INR 1.2 (0.9-1.2) 09/14/17 05:30 APTT 42.0 Seconds (25.6-37.1) H 09/19/17 10:05 Assessment and Plan (1) Chronic kidney disease, stage V Status: Acute (2) Liver transplant disorder Status: Acute (3) Acute on chronic systolic (congestive) heart failure Status: Acute (4) Chronic atrial fibrillation Status: Acute (5) Hypokalemia Status: Acute (6) Chronic kidney disease, stage IV (severe) Status: Acute
--- NOTE | 2017-09-19 17:37 | CP.PCM.PN ---
Subjective - Date & Time of Evaluation Date of Evaluation: 09/19/17 Time of Evaluation: 17:30 - Subjective Subjective: patient denies chest pain. no further dyspnea Objective - Vital Signs/Intake and Output Vital Signs (last 24 hours): Temp Pulse Resp BP Pulse Ox 97.7 F 56 L 20 113/66 94 L 09/19/17 15:44 09/19/17 15:49 09/19/17 15:44 09/19/17 15:44 09/19/17 16:47 - Medications Medications: Current Medications Alprazolam (Xanax) 0.5 mg PO BID PRN PRN Reason: Agitation Calcitriol (Rocaltrol) 0.25 mcg PO DAILY [facility] Last Admin: 09/19/17 08:26 Dose: 0.25 mcg Calcium Acetate (Phoslo) 667 mg PO TID [facility] Last Admin: 09/19/17 16:32 Dose: 667 mg Famotidine (Pepcid) 20 mg PO DAILY [facility] Last Admin: 09/19/17 08:27 Dose: 20 mg Furosemide (Lasix) 40 mg PO DAILY [facility] Stop: 09/20/17 09:01 Last Admin: 09/19/17 08:26 Dose: 40 mg Piperacillin Sod/Tazobactam (Sod 2.25 gm/ Sodium Chloride) 100 mls @ 100 mls/ hr IVPB Q8 [facility] PRN Reason: Protocol Last Admin: 09/19/17 16:31 Dose: 100 mls/hr Heparin Sodium/Dextrose (Heparin 25,000 Units/250ml In D5w) 25,000 units in 250 mls @ 14 mls/hr IV .[id number] [facility] PRN Reason: Protocol Last Admin: 09/19/17 04:20 Dose: 14 mls/hr Lactobacillus Acidophilus (Bacid Acidophilus) 1 cap PO BID [facility] Last Admin: 09/19/17 08:26 Dose: 1 cap Ondansetron HCl (Zofran Inj) 4 mg IVP Q6 [facility] Last Admin: 09/19/17 16:31 Dose: 4 mg Tacrolimus (Prograf Cap) 0.5 mg PO Q12 [facility] Last Admin: 09/19/17 08:27 Dose: 0.5 mg Zolpidem Tartrate (Ambien) 5 mg PO HS PRN PRN Reason: Insomnia Last Admin: 09/18/17 22:00 Dose: 5 mg - Labs Labs: 09/18/17 04:00 09/18/17 05:15 PT 13.4 Seconds (9.8-13.1) H 09/14/17 05:30 INR 1.2 (0.9-1.2) 09/14/17 05:30 APTT 42.0 Seconds (25.6-37.1) H 09/19/17 10:05 - Constitutional Appears: Non-toxic, Chronically Ill - Head Exam Head Exam: NORMAL INSPECTION - Eye Exam Eye Exam: Normal appearance - ENT Exam ENT Exam: Mucous Membranes Moist - Neck Exam Neck Exam: Full ROM - Respiratory Exam Respiratory Exam: Decreased Breath Sounds - Cardiovascular Exam Cardiovascular Exam: Irregular Rhythm - GI/Abdominal Exam GI & Abdominal Exam: Normal Bowel Sounds - Rectal Exam Rectal Exam: Deferred - Extremities Exam Extremities Exam: Pedal Edema - Back Exam Back Exam: NORMAL INSPECTION - Neurological Exam Neurological Exam: Alert - Psychiatric Exam Psychiatric exam: Normal Affect - Skin Skin Exam: Normal Color Assessment and Plan (1) Acute on chronic systolic (congestive) heart failure Assessment & Plan: scheduled for BiV PPM. NPO after midnight. will d/c heparin in am Status: Acute (2) Chronic atrial fibrillation Assessment & Plan: d/c heparin tomorrow Status: Acute
--- NOTE | 2017-09-20 09:26 | CP.PCM.PN ---
Subjective - Date & Time of Evaluation Date of Evaluation: 09/20/17 Time of Evaluation: 09:26 - Subjective Subjective: no new clinical findings for pacemaker placement at [facility] today Objective - Vital Signs/Intake and Output Vital Signs (last 24 hours): Temp Pulse Resp BP Pulse Ox 97.5 F L 45 L 20 144/86 98 09/20/17 08:17 09/20/17 08:17 09/20/17 08:17 09/20/17 08:17 09/20/17 08:17 - Medications Medications: Current Medications Alprazolam (Xanax) 0.5 mg PO BID PRN PRN Reason: Agitation Calcitriol (Rocaltrol) 0.25 mcg PO DAILY [facility] Last Admin: 09/19/17 08:26 Dose: 0.25 mcg Calcium Acetate (Phoslo) 667 mg PO TID [facility] Last Admin: 09/19/17 16:32 Dose: 667 mg Famotidine (Pepcid) 20 mg PO DAILY [facility] Last Admin: 09/19/17 08:27 Dose: 20 mg Piperacillin Sod/Tazobactam (Sod 2.25 gm/ Sodium Chloride) 100 mls @ 100 mls/ hr IVPB Q8 [facility] PRN Reason: Protocol Last Admin: 09/20/17 01:00 Dose: 100 mls/hr Lactobacillus Acidophilus (Bacid Acidophilus) 1 cap PO BID [facility] Last Admin: 09/19/17 19:36 Dose: 1 cap Ondansetron HCl (Zofran Inj) 4 mg IVP Q6 [facility] Last Admin: 09/20/17 04:31 Dose: Not Given Tacrolimus (Prograf Cap) 0.5 mg PO Q12 [facility] Last Admin: 09/19/17 22:14 Dose: 0.5 mg Zolpidem Tartrate (Ambien) 5 mg PO HS PRN PRN Reason: Insomnia Last Admin: 09/19/17 22:14 Dose: 5 mg - Labs Labs: 09/18/17 04:00 09/18/17 05:15 PT 13.4 Seconds (9.8-13.1) H 09/14/17 05:30 INR 1.2 (0.9-1.2) 09/14/17 05:30 APTT 50.6 Seconds (25.6-37.1) H 09/19/17 17:00 - Constitutional Appears: No Acute Distress - Head Exam Head Exam: ATRAUMATIC, NORMAL INSPECTION, NORMOCEPHALIC - Eye Exam Eye Exam: EOMI, Normal appearance, PERRL Pupil Exam: NORMAL ACCOMODATION, PERRL - ENT Exam ENT Exam: Mucous Membranes Moist, Normal Exam - Neck Exam Neck Exam: Full ROM, Normal Inspection. absent: Lymphadenopathy - Respiratory Exam Respiratory Exam: Clear to Ausculation Bilateral, NORMAL BREATHING PATTERN - Cardiovascular Exam Cardiovascular Exam: Irregular Rhythm, +S1, +S2. absent: Murmur - GI/Abdominal Exam GI & Abdominal Exam: Soft, Normal Bowel Sounds. absent: Tenderness - Rectal Exam Rectal Exam: NORMAL INSPECTION - Extremities Exam Extremities Exam: Full ROM, Normal Capillary Refill, Normal Inspection. absent : Joint Swelling, Pedal Edema - Back Exam Back Exam: NORMAL INSPECTION - Neurological Exam Neurological Exam: Alert, Awake, CN II-XII Intact, Normal Gait, Oriented x3 - Psychiatric Exam Psychiatric exam: Normal Affect, Normal Mood - Skin Skin Exam: Dry, Intact, Normal Color, Warm Assessment and Plan - Assessment and Plan (Free Text) Assessment: arrythmias chf esrd Plan: continue rx as ordered
[2017-09-20] MEDS: Lactobacillus Acidophilus 500 MU Cap PO SCH (09:27)
--- NOTE | 2017-09-20 09:47 | CP.PCM.PN ---
Subjective - Date & Time of Evaluation Date of Evaluation: 09/20/17 Time of Evaluation: 09:47 - Subjective Subjective: patient appears to be anxious because he is going cardiac testing Vital signs stable Objective - Vital Signs/Intake and Output Vital Signs (last 24 hours): Temp Pulse Resp BP Pulse Ox 97.5 F L 45 L 20 144/86 98 09/20/17 08:17 09/20/17 08:17 09/20/17 08:17 09/20/17 08:17 09/20/17 08:17 - Medications Medications: Current Medications Alprazolam (Xanax) 0.5 mg PO BID PRN PRN Reason: Agitation Calcitriol (Rocaltrol) 0.25 mcg PO DAILY [facility] Last Admin: 09/20/17 09:27 Dose: Not Given Calcium Acetate (Phoslo) 667 mg PO TID [facility] Last Admin: 09/20/17 09:27 Dose: Not Given Famotidine (Pepcid) 20 mg PO DAILY [facility] Last Admin: 09/20/17 09:27 Dose: Not Given Piperacillin Sod/Tazobactam (Sod 2.25 gm/ Sodium Chloride) 100 mls @ 100 mls/ hr IVPB Q8 [facility] PRN Reason: Protocol Last Admin: 09/20/17 09:29 Dose: 100 mls/hr Lactobacillus Acidophilus (Bacid Acidophilus) 1 cap PO BID [facility] Last Admin: 09/20/17 09:27 Dose: Not Given Ondansetron HCl (Zofran Inj) 4 mg IVP Q6 [facility] Last Admin: 09/20/17 09:27 Dose: Not Given Tacrolimus (Prograf Cap) 0.5 mg PO Q12 [facility] Last Admin: 09/20/17 09:27 Dose: Not Given Zolpidem Tartrate (Ambien) 5 mg PO HS PRN PRN Reason: Insomnia Last Admin: 09/19/17 22:14 Dose: 5 mg - Labs Labs: 09/18/17 04:00 09/18/17 05:15 PT 13.4 Seconds (9.8-13.1) H 09/14/17 05:30 INR 1.2 (0.9-1.2) 09/14/17 05:30 APTT 50.6 Seconds (25.6-37.1) H 09/19/17 17:00 - Constitutional Appears: No Acute Distress - ENT Exam ENT Exam: Mucous Membranes Moist - Neck Exam Neck Exam: absent: Lymphadenopathy - Respiratory Exam Respiratory Exam: absent: Chest Wall Tenderness, Rales - Cardiovascular Exam Cardiovascular Exam: absent: JVD, Rubs - GI/Abdominal Exam GI & Abdominal Exam: Soft, Normal Bowel Sounds - Extremities Exam Extremities Exam: absent: Calf Tenderness - Back Exam Back Exam: absent: CVA tenderness (L), CVA tenderness (R) - Neurological Exam Neurological Exam: Alert - Psychiatric Exam Psychiatric exam: Normal Affect - Skin Skin Exam: absent: Cyanosis Assessment and Plan (1) Chronic kidney disease, stage V Assessment & Plan: acute kidney injury superimposed on chronic kidney disease perhaps is stage IV it's not clear however serum creatinine improving B UN came down to around . Kidney function continued to improve and the patient clinically continued to improve Hypokalemia . Potassium corrected Decompensated congestive heart failure as per cardiology recommendation Cardiac arrhythmia with atrial fibrillation as per cardiology. Status post liver transplant many years ago patient is receiving Prograf we need to do the level of the prograf of if he is staying in this hospital continue monitoring electrolyte Abnormal elevated serum bilirubin continue monitoring hyperphosphatemia serum phosphorus 5.6 we will add calcium ac secondary hyperparathyroidism serum PTH 189 we will add calcitriol Serum tacrolimus 3.9 we will discuss with the patient to increase Prograf 1 mg in the morning and 0.5 mg p.m. Patient is going for cardiac procedures Status: Acute (2) Liver transplant disorder Status: Acute (3) Acute on chronic systolic (congestive) heart failure Status: Acute (4) Chronic atrial fibrillation Status: Acute (5) Hypokalemia Status: Acute (6) Chronic kidney disease, stage IV (severe) Status: Acute
[2017-09-21] MEDS: Lactobacillus Acidophilus 500 MU Cap PO SCH ×2 (09:00→18:10)
[2017-09-21] MEDS: Oxycodone/Acetaminophen 5/325 mg Tab PO PRN (19:05)
[2017-09-22] MEDS: Oxycodone/Acetaminophen 5/325 mg Tab PO PRN ×2 (05:06→18:32)
[2017-09-22] MEDS: Lactobacillus Acidophilus 500 MU Cap PO SCH ×2 (09:08→17:54)
--- NOTE | 2017-09-22 09:08 | CP.PCM.PN ---
Subjective - Date & Time of Evaluation Date of Evaluation: 09/22/17 Time of Evaluation: 09:00 - Subjective Subjective: patient feesl well. s/p BiV PPM Objective - Vital Signs/Intake and Output Vital Signs (last 24 hours): Temp Pulse Resp BP Pulse Ox 98.2 F 70 18 145/85 96 09/22/17 07:53 09/22/17 07:53 09/22/17 07:53 09/22/17 07:53 09/22/17 07:53 - Medications Medications: Current Medications Calcitriol (Rocaltrol) 0.25 mcg PO DAILY [facility] Last Admin: 09/21/17 09:00 Dose: Not Given Calcium Acetate (Phoslo) 667 mg PO TID [facility] Last Admin: 09/21/17 18:11 Dose: 667 mg Famotidine (Pepcid) 20 mg PO DAILY [facility] Last Admin: 09/21/17 09:00 Dose: Not Given Piperacillin Sod/Tazobactam (Sod 2.25 gm/ Sodium Chloride) 100 mls @ 100 mls/ hr IVPB Q8 [facility] PRN Reason: Protocol Last Admin: 09/22/17 01:30 Dose: 100 mls/hr Lactobacillus Acidophilus (Bacid Acidophilus) 1 cap PO BID [facility] Last Admin: 09/21/17 18:10 Dose: 1 cap Ondansetron HCl (Zofran Inj) 4 mg IVP Q6 PRN PRN Reason: nause Oxycodone/Acetaminophen (Percocet 5/325 Mg Tab) 1 tab PO Q6 PRN PRN Reason: Pain, moderate (4-7) Stop: 09/24/17 18:47 Last Admin: 09/22/17 05:06 Dose: 1 tab Rivaroxaban (Xarelto) 20 mg PO QD5 [facility] PRN Reason: Protocol Tacrolimus (Prograf Cap) 0.5 mg PO DAILY [facility] Last Admin: 09/21/17 09:00 Dose: Not Given - Labs Labs: 09/18/17 04:00 09/18/17 05:15 PT 13.4 Seconds (9.8-13.1) H 09/14/17 05:30 INR 1.2 (0.9-1.2) 09/14/17 05:30 APTT 50.6 Seconds (25.6-37.1) H 09/19/17 17:00 - Constitutional Appears: Non-toxic - Head Exam Head Exam: NORMAL INSPECTION - Eye Exam Eye Exam: Normal appearance - ENT Exam ENT Exam: Mucous Membranes Moist - Neck Exam Neck Exam: Full ROM - Respiratory Exam Respiratory Exam: NORMAL BREATHING PATTERN - Cardiovascular Exam Cardiovascular Exam: REGULAR RHYTHM - GI/Abdominal Exam GI & Abdominal Exam: Normal Bowel Sounds - Rectal Exam Rectal Exam: Deferred - Extremities Exam Extremities Exam: Pedal Edema - Back Exam Back Exam: NORMAL INSPECTION - Neurological Exam Neurological Exam: Alert - Psychiatric Exam Psychiatric exam: Normal Affect - Skin Skin Exam: Normal Color Assessment and Plan (1) Acute on chronic systolic (congestive) heart failure Assessment & Plan: s/p BiV PPM. doing well. medical therapy Status: Acute (2) Chronic atrial fibrillation Assessment & Plan: recommend anticaogulation. can use NOAC. Status: Acute
--- NOTE | 2017-09-22 12:09 | CP.PCM.PN ---
Subjective - Date & Time of Evaluation Date of Evaluation: 09/22/17 Time of Evaluation: 12:09 - Subjective Subjective: S/P PACEMAKER PLACEMENT FEELS WELL Objective - Vital Signs/Intake and Output Vital Signs (last 24 hours): Temp Pulse Resp BP Pulse Ox 98.2 F 70 18 145/85 96 09/22/17 07:53 09/22/17 07:53 09/22/17 07:53 09/22/17 07:53 09/22/17 07:53 - Medications Medications: Current Medications Calcitriol (Rocaltrol) 0.25 mcg PO DAILY [facility] Last Admin: 09/22/17 09:09 Dose: 0.25 mcg Calcium Acetate (Phoslo) 667 mg PO TID [facility] Last Admin: 09/22/17 09:09 Dose: 667 mg Famotidine (Pepcid) 20 mg PO DAILY [facility] Last Admin: 09/22/17 09:08 Dose: 20 mg Piperacillin Sod/Tazobactam (Sod 2.25 gm/ Sodium Chloride) 100 mls @ 100 mls/ hr IVPB Q8 [facility] PRN Reason: Protocol Last Admin: 09/22/17 09:10 Dose: 100 mls/hr Lactobacillus Acidophilus (Bacid Acidophilus) 1 cap PO BID [facility] Last Admin: 09/22/17 09:08 Dose: 1 cap Ondansetron HCl (Zofran Inj) 4 mg IVP Q6 PRN PRN Reason: nause Oxycodone/Acetaminophen (Percocet 5/325 Mg Tab) 1 tab PO Q6 PRN PRN Reason: Pain, moderate (4-7) Stop: 09/24/17 18:47 Last Admin: 09/22/17 05:06 Dose: 1 tab Rivaroxaban (Xarelto) 20 mg PO DAILY [facility]S [facility] PRN Reason: Protocol Tacrolimus (Prograf Cap) 0.5 mg PO DAILY [facility] Last Admin: 09/22/17 09:09 Dose: 0.5 mg - Labs Labs: 09/18/17 04:00 09/18/17 05:15 PT 13.4 Seconds (9.8-13.1) H 09/14/17 05:30 INR 1.2 (0.9-1.2) 09/14/17 05:30 APTT 50.6 Seconds (25.6-37.1) H 09/19/17 17:00 - Constitutional Appears: No Acute Distress - Head Exam Head Exam: ATRAUMATIC, NORMAL INSPECTION, NORMOCEPHALIC - Eye Exam Eye Exam: EOMI, Normal appearance, PERRL Pupil Exam: NORMAL ACCOMODATION, PERRL - ENT Exam ENT Exam: Mucous Membranes Moist, Normal Exam - Neck Exam Neck Exam: Full ROM, Normal Inspection. absent: Lymphadenopathy - Respiratory Exam Respiratory Exam: Clear to Ausculation Bilateral, NORMAL BREATHING PATTERN - Cardiovascular Exam Cardiovascular Exam: REGULAR RHYTHM, +S1, +S2. absent: Murmur Additional comments: PACEMAKER SITE INTACT - GI/Abdominal Exam GI & Abdominal Exam: Soft, Normal Bowel Sounds. absent: Tenderness - Rectal Exam Rectal Exam: NORMAL INSPECTION - Exam External exam: NORMAL EXTERNAL EXAM - Extremities Exam Extremities Exam: Full ROM, Normal Capillary Refill, Normal Inspection. absent : Joint Swelling, Pedal Edema - Back Exam Back Exam: NORMAL INSPECTION - Neurological Exam Neurological Exam: Alert, Awake, CN II-XII Intact, Normal Gait, Oriented x3 - Psychiatric Exam Psychiatric exam: Normal Affect, Normal Mood - Skin Skin Exam: Dry, Intact, Normal Color, Warm Assessment and Plan - Assessment and Plan (Free Text) Assessment: S/P PACEMAKER PLACEMENT CARDIAC ARRYTHMIAS--IMPROVED CHF-IMPROVED ESRD HX OF LIVER TRANSPLANT SEPSIS/UTI IMPROVED Plan: CONTINUE CURRENT RX WILL HAVE MANAGER SPA DISCUS DISPOSITION WITH PATIENT.
--- NOTE | 2017-09-22 12:35 | PQF ---
PROVIDER RESPONSE TEXT: UTI AND SEPSIS RULED IN REVIEWER QUERY TEXT: Documentation Clarification Your help is requested in clarifying the following clinical documentation, if you can please further specify in the medical record and discharge summary. Documentation of UTI and Sepsis in Progress notes 09/15 and 09/16/17 and no mention again. Blood CS was + on admission. Temp: Afebrile, HR Bradycardia , BP 89/40, 120/68, 130/51, WBC:8.8, Lactate 1.1 Would you please clarify if they are ruled in or ruled out. The patient's Clinical Indicators include: Admitted with SOB, exercise intolerance and pedal edema. Diagnosed with Acute CHF. Blood CS on admission: Coagulase Neg Staphylococcus Urine CS on admission: < 10,000 CFU Gram Neg Rods Temp: Afebrile HR Bradycardic BP 89/40, 120/68, 130/51 WBC:8.8, Lactate 1.1 Zosyn started on 09/14/17 Query created by: Benita Andujar on 09/20/2017 6:17 AM Electronically signed by: Grey Arriaga MD 09/22/2017 12:33 PM
--- NOTE | 2017-09-22 16:14 | CP.PCM.PN ---
Subjective - Date & Time of Evaluation Date of Evaluation: 09/22/17 Time of Evaluation: 16:12 - Subjective Subjective: RENAL seen and examiend feels ok no complaints pe: vs as below gen: nad sclera: anicteric op: clear neck: supple cv: +s1+s2 no rub lungs: cta ant abd: soft nt/nd ext: no edema neuro: a+ox3 psych: nml affect skin no rash imp: CKD IV / liver txp / chf / afib plan: no labs to review will review when availble was stable on last check Objective - Vital Signs/Intake and Output Vital Signs (last 24 hours): Temp Pulse Resp BP Pulse Ox 97.4 F L 69 20 145/93 H 96 09/22/17 15:43 09/22/17 15:43 09/22/17 15:43 09/22/17 15:43 09/22/17 15:43 - Medications Medications: Current Medications Calcitriol (Rocaltrol) 0.25 mcg PO DAILY [facility] Last Admin: 09/22/17 09:09 Dose: 0.25 mcg Calcium Acetate (Phoslo) 667 mg PO TID [facility] Last Admin: 09/22/17 09:09 Dose: 667 mg Famotidine (Pepcid) 20 mg PO DAILY [facility] Last Admin: 09/22/17 09:08 Dose: 20 mg Piperacillin Sod/Tazobactam (Sod 2.25 gm/ Sodium Chloride) 100 mls @ 100 mls/ hr IVPB Q8 [facility] PRN Reason: Protocol Last Admin: 09/22/17 09:10 Dose: 100 mls/hr Lactobacillus Acidophilus (Bacid Acidophilus) 1 cap PO BID [facility] Last Admin: 09/22/17 09:08 Dose: 1 cap Ondansetron HCl (Zofran Inj) 4 mg IVP Q6 PRN PRN Reason: nause Oxycodone/Acetaminophen (Percocet 5/325 Mg Tab) 1 tab PO Q6 PRN PRN Reason: Pain, moderate (4-7) Stop: 09/24/17 18:47 Last Admin: 09/22/17 05:06 Dose: 1 tab Rivaroxaban (Xarelto) 10 mg PO DAILY [facility] PRN Reason: Protocol Tacrolimus (Prograf Cap) 0.5 mg PO DAILY [facility] Last Admin: 09/22/17 09:09 Dose: 0.5 mg - Labs Labs: 09/18/17 04:00 09/18/17 05:15 PT 13.4 Seconds (9.8-13.1) H 09/14/17 05:30 INR 1.2 (0.9-1.2) 09/14/17 05:30 APTT 50.6 Seconds (25.6-37.1) H 09/19/17 17:00
[2017-09-23] MEDS: Oxycodone/Acetaminophen 5/325 mg Tab PO PRN ×4 (00:22→23:19)
[2017-09-23] MEDS: Lactobacillus Acidophilus 500 MU Cap PO SCH ×2 (09:48→16:28)
--- NOTE | 2017-09-23 11:09 | CP.PCM.PN ---
Subjective - Date & Time of Evaluation Date of Evaluation: 09/23/17 Time of Evaluation: 11:13 - Subjective Subjective: FEELS BETTER COUGHING NO SOB/CHEST PAINS Objective - Vital Signs/Intake and Output Vital Signs (last 24 hours): Temp Pulse Resp BP Pulse Ox 97.6 F 69 18 130/89 98 09/23/17 08:09 09/23/17 08:09 09/23/17 08:09 09/23/17 08:09 09/23/17 08:09 - Medications Medications: Current Medications Calcitriol (Rocaltrol) 0.25 mcg PO DAILY [facility] Last Admin: 09/23/17 09:50 Dose: 0.25 mcg Calcium Acetate (Phoslo) 667 mg PO TID [facility] Last Admin: 09/23/17 09:50 Dose: 667 mg Famotidine (Pepcid) 20 mg PO DAILY [facility] Last Admin: 09/23/17 09:50 Dose: 20 mg Piperacillin Sod/Tazobactam (Sod 2.25 gm/ Sodium Chloride) 100 mls @ 100 mls/ hr IVPB Q8 [facility] PRN Reason: Protocol Last Admin: 09/23/17 09:49 Dose: 100 mls/hr Lactobacillus Acidophilus (Bacid Acidophilus) 1 cap PO BID [facility] Last Admin: 09/23/17 09:48 Dose: 1 cap Ondansetron HCl (Zofran Inj) 4 mg IVP Q6 PRN PRN Reason: nause Oxycodone/Acetaminophen (Percocet 5/325 Mg Tab) 1 tab PO Q6 PRN PRN Reason: Pain, moderate (4-7) Stop: 09/24/17 18:47 Last Admin: 09/23/17 05:58 Dose: 1 tab Rivaroxaban (Xarelto) 10 mg PO DAILY [facility] PRN Reason: Protocol Last Admin: 09/23/17 09:50 Dose: 10 mg Tacrolimus (Prograf Cap) 0.5 mg PO DAILY [facility] Last Admin: 09/23/17 09:50 Dose: 0.5 mg - Labs Labs: 09/18/17 04:00 09/18/17 05:15 PT 13.4 Seconds (9.8-13.1) H 09/14/17 05:30 INR 1.2 (0.9-1.2) 09/14/17 05:30 APTT 50.6 Seconds (25.6-37.1) H 09/19/17 17:00 - Constitutional Appears: No Acute Distress - Head Exam Head Exam: ATRAUMATIC, NORMAL INSPECTION, NORMOCEPHALIC - Eye Exam Eye Exam: EOMI, Normal appearance, PERRL Pupil Exam: NORMAL ACCOMODATION, PERRL - ENT Exam ENT Exam: Mucous Membranes Moist, Normal Exam - Neck Exam Neck Exam: Full ROM, Normal Inspection. absent: Lymphadenopathy - Respiratory Exam Respiratory Exam: Prolonged Expiratory Phase, Rales, NORMAL BREATHING PATTERN - Cardiovascular Exam Cardiovascular Exam: REGULAR RHYTHM, +S1, +S2. absent: Murmur - GI/Abdominal Exam GI & Abdominal Exam: Soft, Normal Bowel Sounds. absent: Tenderness - Rectal Exam Rectal Exam: NORMAL INSPECTION - Extremities Exam Extremities Exam: Full ROM, Normal Capillary Refill, Normal Inspection. absent : Joint Swelling, Pedal Edema - Back Exam Back Exam: NORMAL INSPECTION - Neurological Exam Neurological Exam: Alert, Awake, CN II-XII Intact, Normal Gait, Oriented x3 - Psychiatric Exam Psychiatric exam: Normal Affect, Normal Mood - Skin Skin Exam: Dry, Intact, Normal Color, Warm Assessment and Plan - Assessment and Plan (Free Text) Assessment: S/P PACEMAKER PLACEMENT CARDIAC ARRYTHMIAS ESRD S/P LIVER TRANSPLANT Plan: [employer] ANA PAULA NAJERA
--- NOTE | 2017-09-23 12:16 | CP.PCM.PN ---
Subjective - Date & Time of Evaluation Date of Evaluation: 09/23/17 Time of Evaluation: 11:00 - Subjective Subjective: Patient has no complaints. Thinking about rehab Objective - Vital Signs/Intake and Output Vital Signs (last 24 hours): Temp Pulse Resp BP Pulse Ox 97.9 F 67 18 130/82 99 09/23/17 11:55 09/23/17 11:55 09/23/17 11:55 09/23/17 11:55 09/23/17 11:55 - Medications Medications: Current Medications Calcitriol (Rocaltrol) 0.25 mcg PO DAILY [facility] Last Admin: 09/23/17 09:50 Dose: 0.25 mcg Calcium Acetate (Phoslo) 667 mg PO TID [facility] Last Admin: 09/23/17 09:50 Dose: 667 mg Carvedilol (Coreg) 6.25 mg PO Q12 [facility] Famotidine (Pepcid) 20 mg PO DAILY [facility] Last Admin: 09/23/17 09:50 Dose: 20 mg Piperacillin Sod/Tazobactam (Sod 2.25 gm/ Sodium Chloride) 100 mls @ 100 mls/ hr IVPB Q8 [facility] PRN Reason: Protocol Last Admin: 09/23/17 09:49 Dose: 100 mls/hr Lactobacillus Acidophilus (Bacid Acidophilus) 1 cap PO BID [facility] Last Admin: 09/23/17 09:48 Dose: 1 cap Ondansetron HCl (Zofran Inj) 4 mg IVP Q6 PRN PRN Reason: nause Oxycodone/Acetaminophen (Percocet 5/325 Mg Tab) 1 tab PO Q6 PRN PRN Reason: Pain, moderate (4-7) Stop: 09/24/17 18:47 Last Admin: 09/23/17 05:58 Dose: 1 tab Rivaroxaban (Xarelto) 20 mg PO DAILY [facility] PRN Reason: Protocol Tacrolimus (Prograf Cap) 0.5 mg PO DAILY [facility] Last Admin: 09/23/17 09:50 Dose: 0.5 mg - Labs Labs: 09/18/17 04:00 09/18/17 05:15 PT 13.4 Seconds (9.8-13.1) H 09/14/17 05:30 INR 1.2 (0.9-1.2) 09/14/17 05:30 APTT 50.6 Seconds (25.6-37.1) H 09/19/17 17:00 - Constitutional Appears: Chronically Ill - Head Exam Head Exam: NORMAL INSPECTION - Eye Exam Eye Exam: Normal appearance - ENT Exam ENT Exam: Mucous Membranes Moist - Neck Exam Neck Exam: Normal Inspection - Respiratory Exam Respiratory Exam: NORMAL BREATHING PATTERN - Cardiovascular Exam Cardiovascular Exam: REGULAR RHYTHM - GI/Abdominal Exam GI & Abdominal Exam: Normal Bowel Sounds - Rectal Exam Rectal Exam: Deferred - Extremities Exam Extremities Exam: Pedal Edema - Back Exam Back Exam: NORMAL INSPECTION - Neurological Exam Neurological Exam: Alert - Psychiatric Exam Psychiatric exam: Normal Affect - Skin Skin Exam: Normal Color Assessment and Plan (1) Acute on chronic systolic (congestive) heart failure Assessment & Plan: improved. on Coreg. s/p BiV PPM Status: Acute (2) Chronic atrial fibrillation Assessment & Plan: Xarelto added Status: Acute
[2017-09-24] MEDS: Oxycodone/Acetaminophen 5/325 mg Tab PO PRN ×3 (05:37→18:47)
[2017-09-24] MEDS: Lactobacillus Acidophilus 500 MU Cap PO SCH ×2 (08:53→16:30)
--- NOTE | 2017-09-24 09:20 | CP.PCM.PN ---
Subjective - Date & Time of Evaluation Date of Evaluation: 09/24/17 Time of Evaluation: 09:20 - Subjective Subjective: FEELS BETTER NO APPARENT DISTRESS PACEMAKER SITE L CHEST WALL HEALING WELL Objective - Vital Signs/Intake and Output Vital Signs (last 24 hours): Temp Pulse Resp BP Pulse Ox 97.7 F 78 20 127/80 99 09/24/17 08:00 09/24/17 08:52 09/24/17 08:00 09/24/17 08:52 09/24/17 08:00 - Medications Medications: Current Medications Calcitriol (Rocaltrol) 0.25 mcg PO DAILY [facility] Last Admin: 09/24/17 08:53 Dose: 0.25 mcg Calcium Acetate (Phoslo) 667 mg PO TID [facility] Last Admin: 09/24/17 08:52 Dose: 667 mg Carvedilol (Coreg) 6.25 mg PO Q12 [facility] Last Admin: 09/24/17 08:52 Dose: 6.25 mg Famotidine (Pepcid) 20 mg PO DAILY [facility] Last Admin: 09/24/17 08:53 Dose: 20 mg Lactobacillus Acidophilus (Bacid Acidophilus) 1 cap PO BID [facility] Last Admin: 09/24/17 08:53 Dose: 1 cap Ondansetron HCl (Zofran Inj) 4 mg IVP Q6 PRN PRN Reason: nause Oxycodone/Acetaminophen (Percocet 5/325 Mg Tab) 1 tab PO Q6 PRN PRN Reason: Pain, moderate (4-7) Stop: 09/24/17 18:47 Last Admin: 09/24/17 05:37 Dose: 1 tab Rivaroxaban (Xarelto) 10 mg PO DAILY [facility] PRN Reason: Protocol Last Admin: 09/24/17 08:52 Dose: 10 mg Tacrolimus (Prograf Cap) 0.5 mg PO DAILY [facility] Last Admin: 09/24/17 08:52 Dose: 0.5 mg - Labs Labs: 09/18/17 04:00 09/18/17 05:15 PT 13.4 Seconds (9.8-13.1) H 09/14/17 05:30 INR 1.2 (0.9-1.2) 09/14/17 05:30 APTT 50.6 Seconds (25.6-37.1) H 09/19/17 17:00 - Constitutional Appears: No Acute Distress - Head Exam Head Exam: ATRAUMATIC, NORMAL INSPECTION, NORMOCEPHALIC - Eye Exam Eye Exam: EOMI, Normal appearance, PERRL Pupil Exam: NORMAL ACCOMODATION, PERRL - ENT Exam ENT Exam: Mucous Membranes Moist, Normal Exam - Neck Exam Neck Exam: Full ROM, Normal Inspection. absent: Lymphadenopathy - Respiratory Exam Respiratory Exam: Clear to Ausculation Bilateral, NORMAL BREATHING PATTERN - Cardiovascular Exam Cardiovascular Exam: REGULAR RHYTHM, +S1, +S2. absent: Murmur - GI/Abdominal Exam GI & Abdominal Exam: Soft, Normal Bowel Sounds. absent: Tenderness - Rectal Exam Rectal Exam: NORMAL INSPECTION - Extremities Exam Extremities Exam: Full ROM, Normal Capillary Refill, Normal Inspection. absent : Joint Swelling, Pedal Edema - Back Exam Back Exam: NORMAL INSPECTION - Neurological Exam Neurological Exam: Alert, Awake, CN II-XII Intact, Normal Gait, Oriented x3 - Psychiatric Exam Psychiatric exam: Normal Affect, Normal Mood - Skin Skin Exam: Dry, Intact, Normal Color, Warm Assessment and Plan - Assessment and Plan (Free Text) Assessment: CHF--IMPROVED ARRYTHMIAS--CORRECTED WITH PACEMAKER ASHD ANEMIA SEPSIS RESOLVED UTI-RESOLVED DIARRHEA RESOLVED S/P LIVER TRANSPLANT Plan: SOCIAL SEVICES FOR DISCHARGE PLANNING
--- NOTE | 2017-09-24 10:03 | CP.PCM.PN ---
Subjective - Date & Time of Evaluation Date of Evaluation: 09/24/17 Time of Evaluation: 10:03 - Subjective Subjective: patient continued to improve feeling much better less shortness of breath Objective - Vital Signs/Intake and Output Vital Signs (last 24 hours): Temp Pulse Resp BP Pulse Ox 97.7 F 78 20 127/80 99 09/24/17 08:00 09/24/17 08:52 09/24/17 08:00 09/24/17 08:52 09/24/17 08:00 - Medications Medications: Current Medications Calcitriol (Rocaltrol) 0.25 mcg PO DAILY [facility] Last Admin: 09/24/17 08:53 Dose: 0.25 mcg Calcium Acetate (Phoslo) 667 mg PO TID [facility] Last Admin: 09/24/17 08:52 Dose: 667 mg Carvedilol (Coreg) 6.25 mg PO Q12 [facility] Last Admin: 09/24/17 08:52 Dose: 6.25 mg Famotidine (Pepcid) 20 mg PO DAILY [facility] Last Admin: 09/24/17 08:53 Dose: 20 mg Guaifenesin/Dextromethorphan (Mucinex-Dm 600-30 Mg) 1 tab PO BID [facility] Lactobacillus Acidophilus (Bacid Acidophilus) 1 cap PO BID [facility] Last Admin: 09/24/17 08:53 Dose: 1 cap Ondansetron HCl (Zofran Inj) 4 mg IVP Q6 PRN PRN Reason: nause Oxycodone/Acetaminophen (Percocet 5/325 Mg Tab) 1 tab PO Q6 PRN PRN Reason: Pain, moderate (4-7) Stop: 09/24/17 18:47 Last Admin: 09/24/17 05:37 Dose: 1 tab Rivaroxaban (Xarelto) 10 mg PO DAILY [facility] PRN Reason: Protocol Last Admin: 09/24/17 08:52 Dose: 10 mg Tacrolimus (Prograf Cap) 0.5 mg PO DAILY [facility] Last Admin: 09/24/17 08:52 Dose: 0.5 mg - Labs Labs: 09/18/17 04:00 09/18/17 05:15 PT 13.4 Seconds (9.8-13.1) H 09/14/17 05:30 INR 1.2 (0.9-1.2) 09/14/17 05:30 APTT 50.6 Seconds (25.6-37.1) H 09/19/17 17:00 - Constitutional Appears: No Acute Distress - ENT Exam ENT Exam: Mucous Membranes Moist - Neck Exam Neck Exam: absent: Lymphadenopathy - Respiratory Exam Respiratory Exam: absent: Chest Wall Tenderness - Cardiovascular Exam Cardiovascular Exam: absent: Gallop - GI/Abdominal Exam GI & Abdominal Exam: Soft, Normal Bowel Sounds - Back Exam Back Exam: absent: CVA tenderness (L), CVA tenderness (R) - Neurological Exam Neurological Exam: Alert - Psychiatric Exam Psychiatric exam: Normal Affect - Skin Skin Exam: absent: Cyanosis Assessment and Plan (1) Chronic kidney disease, stage V Assessment & Plan: acute kidney injury superimposed on chronic kidney disease perhaps is stage IV it's not clear however serum creatinine improving B UN came down to around . Kidney function continued to improve and the patient clinically continued to improve Hypokalemia . Potassium corrected Decompensated congestive heart failure as per cardiology recommendation Cardiac arrhythmia with atrial fibrillation as per cardiology. Status post liver transplant many years ago patient is receiving Prograf we need to do the level of the prograf of if he is staying in this hospital continue monitoring electrolyte hyperphosphatemia serum phosphorus 5.6 we will add calcium ac secondary hyperparathyroidism serum PTH 189 we will add calcitriol status post pacemaker Status: Acute (2) Liver transplant disorder Status: Acute (3) Acute on chronic systolic (congestive) heart failure Status: Acute (4) Chronic atrial fibrillation Status: Acute (5) Hypokalemia Status: Acute (6) Chronic kidney disease, stage IV (severe) Status: Acute
[2017-09-24] MEDS: guaiFENesin-DM 600-30 mg ER Tab PO SCH ×2 (12:28→16:28)
[2017-09-24 15:36] VITALS: TEMP 97.8
--- NOTE | 2017-09-24 16:29 | CP.PCM.DIS ---
Provider - Provider Date of Admission: 09/12/17 19:05 Attending physician: Grey Arriaga MD Time Spent in preparation of Discharge (in minutes): 35 Diagnosis - Discharge Diagnosis (1) S/P placement of cardiac pacemaker Status: Acute (2) AV junctional bradycardia Status: Acute (3) AV node dysfunction Status: Acute (4) Acute on chronic systolic (congestive) heart failure Status: Acute (5) Chronic atrial fibrillation Status: Acute (6) Chronic kidney disease, stage IV (severe) Status: Acute (7) Enlarged RV (right ventricle) Status: Acute (8) Generalized muscle weakness Status: Acute (9) Hypokalemia Status: Acute (10) Liver transplant disorder Status: Acute Hospital Course - Lab Results Lab Results: Micro Results 09/17/17 10:17 Blood Blood Culture - Final NO GROWTH AFTER 5 DAYS 09/17/17 10:17 Blood Gram Stain - Final TEST NOT PERFORMED 09/12/17 19:00 Blood-Venous Blood Culture - Final Coagulase Neg Staphylococcus 09/12/17 19:00 Blood-Venous Gram Stain - Final 09/12/17 18:56 Blood-Venous S.aureus & Coag-Neg Staph PNA FISH - Final 09/12/17 18:56 Blood-Venous Blood Culture - Final Coagulase Neg Staphylococcus 09/12/17 18:56 Blood-Venous Gram Stain - Final 09/12/17 19:00 Urine,Clean Catch Urine Culture - Final Gram Negative Sheng Most Recent Lab Values WBC 7.0 K/uL (4.8-10.8) 09/18/17 04:00 RBC 4.38 Mil/uL (4.40-5.90) L 09/18/17 04:00 Hgb 12.0 g/dL (12.0-18.0) 09/18/17 04:00 Hct 37.0 % (35.0-51.0) 09/18/17 04:00 MCV 84.5 fl (80.0-94.0) 09/18/17 04:00 MCH 27.5 pg (27.0-31.0) 09/18/17 04:00 MCHC 32.5 g/dL (33.0-37.0) L 09/18/17 04:00 RDW 21.2 % (11.5-14.5) H 09/18/17 04:00 Plt Count 170 K/uL (130-400) 09/18/17 04:00 MPV 9.2 fl (7.2-11.7) 09/14/17 05:30 Neut % (Auto) 72.4 % (50.0-75.0) 09/14/17 05:30 Lymph % (Auto) 11.7 % (20.0-40.0) L 09/14/17 05:30 Cochran % (Auto) 12.6 % (0.0-10.0) H 09/14/17 05:30 Eos % (Auto) 2.8 % (0.0-4.0) 09/14/17 05:30 Baso % (Auto) 0.5 % (0.0-2.0) 09/14/17 05:30 Neut # (Auto) 5.4 K/uL (1.8-7.0) 09/14/17 05:30 Lymph # (Auto) 0.9 K/uL (1.0-4.3) L 09/14/17 05:30 Cochran # (Auto) 0.9 K/uL (0.0-0.8) H 09/14/17 05:30 Eos # (Auto) 0.2 K/uL (0.0-0.7) 09/14/17 05:30 Baso # (Auto) 0.0 K/uL (0.0-0.2) 09/14/17 05:30 PT 13.4 Seconds (9.8-13.1) H 09/14/17 05:30 INR 1.2 (0.9-1.2) 09/14/17 05:30 APTT 50.6 Seconds (25.6-37.1) H 09/19/17 17:00 pCO2 31 mm/Hg (35-45) L 09/12/17 18:58 pO2 75 mm/Hg (80-100) L 09/12/17 18:58 HCO3 29.0 mmol/L (21-28) H 09/12/17 18:58 ABG pH 7.55 (7.35-7.45) H 09/12/17 18:58 ABG Total CO2 28.1 mmol/L (22-28) H 09/12/17 18:58 ABG O2 Saturation 98.7 % (95-98) H 09/12/17 18:58 ABG Base Excess 5.2 mmol/L (-2.0-3.0) H 09/12/17 18:58 Prudencio Test Yes 09/12/17 18:58 ABG Potassium 2.6 mmol/L (3.6-5.2) L 09/12/17 18:58 A-a O2 Difference 36.0 mm/Hg 09/12/17 18:58 Sodium 132.0 mmol/L (132-148) 09/12/17 18:58 Chloride 91.0 mmol/L (98-107) L 09/12/17 18:58 Glucose 130 mg/dL (75-110) H 09/12/17 18:58 Lactate 1.1 mmol/L (0.7-2.1) 09/12/17 18:58 FiO2 21.0 % 09/12/17 18:58 Sodium 138 mmol/l (132-148) 09/18/17 05:15 Potassium 4.0 MMOL/L (3.6-5.0) 09/18/17 05:15 Chloride 102 mmol/L (98-107) 09/18/17 05:15 Carbon Dioxide 23 mmol/L (22-30) 09/18/17 05:15 Anion Gap 17 (10-20) 09/18/17 05:15 BUN 72 mg/dl (9-20) H 09/18/17 05:15 Creatinine 2.9 mg/dl (0.8-1.5) H 09/18/17 05:15 Est GFR ( Amer) 27 09/18/17 05:15 Est GFR (Non-Af Amer) 09/18/17 05:15 POC Glucose (mg/dL) 128 mg/dL (65-110) H 09/12/17 14:58 Random Glucose 95 mg/dL (75-110) 09/18/17 05:15 Calcium 9.4 mg/dL (8.4-10.2) 09/18/17 05:15 Phosphorus 3.5 mg/dl (2.5-4.5) 09/16/17 05:30 Magnesium 2.1 MG/DL (1.6-2.3) 09/16/17 05:30 Total Bilirubin 1.3 mg/dl (0.2-1.3) 09/18/17 05:15 AST 24 U/L (17-59) 09/18/17 05:15 ALT 23 U/L (21-72) 09/18/17 05:15 Alkaline Phosphatase 242 U/L (38-126) H D 09/18/17 05:15 Ammonia 27 umo/L (16-60) 09/13/17 10:54 Troponin I 0.1220 ng/mL (0.00-0.120) H* 09/13/17 08:10 NT-Pro-B Natriuret Pep 45222 pg/ml (0-900) H 09/14/17 05:30 Total Protein 6.6 G/DL (6.3-8.2) 09/18/17 05:15 Albumin 3.4 g/dL (3.5-5.0) L 09/18/17 05:15 Globulin 3.3 gm/dL (2.2-3.9) 09/18/17 05:15 Albumin/Globulin Ratio 1.0 (1.0-2.1) 09/18/17 05:15 PTH Intact Whole Molec 189 pg/mL (14-64) H 09/13/17 11:30 Arterial Blood Potassium 2.6 mmol/L (3.6-5.2) L 09/12/17 18:58 Urine Color Yellow (YELLOW) 09/12/17 19:00 Urine Clarity Slighty-cloudy (Clear) 09/12/17 19:00 Urine pH 6.0 (5.0-8.0) 09/12/17 19:00 Ur Specific [place] 1.011 (1.003-1.030) 09/12/17 19:00 Urine Protein 30 mg/dL (NEGATIVE) 09/12/17 19:00 Urine Glucose (UA) Neg mg/dL (Normal) 09/12/17 19:00 Urine Ketones Negative mg/dL (NEGATIVE) 09/12/17 19:00 Urine Blood Negative (NEGATIVE) 09/12/17 19:00 Urine Nitrate Negative (NEGATIVE) 09/12/17 19:00 Urine Bilirubin Negative (NEGATIVE) 09/12/17 19:00 Urine Urobilinogen 2.0 mg/dL (0.2-1.0) 09/12/17 19:00 Ur Leukocyte Esterase Neg [place]/uL (Negative) 07/25/18 19:00 Urine RBC (Auto) < 1 /hpf (0-3) 09/12/17 19:00 Urine Microscopic WBC 2 /hpf (0-5) 09/12/17 19:00 Ur Squamous Epith Cells 1 /hpf (0-5) 09/12/17 19:00 Urine Bacteria Few (<OCC) H 09/12/17 19:00 Ur Random Creatinine 41.9 mg/dL 09/15/17 22:50 U Random Total Protein 982 mg/g creat (22-128) H 09/15/17 08:48 Ur Random Sodium 28 mmol/L 09/15/17 22:50 Urine Total Volume 16.5 mg/dL 09/15/17 08:48 Microalb/Creat Ratio 329 (<30) H 09/15/17 08:48 Tacrolimus (LC/MS/MS) 3.9 mcg/L (5.0-20.0) L 09/16/17 05:30 - Hospital Course Hospital Course: still weak but feels beteer Discharge Exam - Head Exam Head Exam: ATRAUMATIC, NORMAL INSPECTION, NORMOCEPHALIC - Eye Exam Eye Exam: EOMI, Normal appearance, PERRL Pupil Exam: NORMAL ACCOMODATION, PERRL - GI/Abdominal Exam GI & Abdominal Exam: Normal Bowel Sounds - Rectal Exam Rectal Exam: NORMAL INSPECTION - Neurological Exam Neurological exam: Alert, CN II-XII Intact, Normal Gait, Oriented x3, Reflexes Normal - Psychiatric Exam Psychiatric exam: Normal Affect, Normal Mood - Skin Skin Exam: Dry, Intact, Normal Color, Warm Discharge Plan - Follow Up Plan Condition: STABLE Disposition: HOME/ ROUTINE Patient education suggested?: Yes Additional Instructions: transfer to transitional care
[2017-09-24 21:20] VITALS: BP 127/73; PULSE 75
[2017-09-24 23:26] VITALS: RESP 18; O2SAT 99
== END 2017-09-24 21:35 | DRG 242 ==
LOC: H.ER 14:37 → H.ERHOLD 19:05 → H.TEL 23:44
PROVIDERS: ADMIT Internal Medicine Pulmonary Disease; ATTEND Internal Medicine Pulmonary Disease
PROC: 0JH606Z Insertion of Pacemaker, Dual Chamber into Chest Subcutaneous Tissue and Fascia, Open Approach (ICD-10-PCS; principal; 2017-09-20)
PROC: 02H63JZ Insertion of Pacemaker Lead into Right Atrium, Percutaneous Approach (ICD-10-PCS; 2017-09-20)
PROC: 02HK3JZ Insertion of Pacemaker Lead into Right Ventricle, Percutaneous Approach (ICD-10-PCS; 2017-09-20)
DX: I13.2 Hypertensive heart and chronic kidney disease with heart failure and with stage 5 chronic kidney disease, or end stage renal disease (principal); A41.9 Sepsis, unspecified organism; I50.23 Acute on chronic systolic (congestive) heart failure; N18.5 Chronic kidney disease, stage 5; N17.9 Acute kidney failure, unspecified; N39.0 Urinary tract infection, site not specified; I48.92 Unspecified atrial flutter; Z94.4 Liver transplant status; I42.0 Dilated cardiomyopathy; I48.2 Chronic atrial fibrillation; E87.6 Hypokalemia; E86.0 Dehydration; E83.39 Other disorders of phosphorus metabolism; B95.7 Other staphylococcus as the cause of diseases classified elsewhere; I27.20 Pulmonary hypertension, unspecified; I49.8 Other specified cardiac arrhythmias; I25.10 Atherosclerotic heart disease of native coronary artery without angina pectoris; E78.00 Pure hypercholesterolemia, unspecified; D64.9 Anemia, unspecified; N20.0 Calculus of kidney; H91.8X2 Other specified hearing loss, left ear; Z91.15 Patient's noncompliance with renal dialysis; Z99.81 Dependence on supplemental oxygen; Z86.711 Personal history of pulmonary embolism; Z86.718 Personal history of other venous thrombosis and embolism; Z79.01 Long term (current) use of anticoagulants; Z86.19 Personal history of other infectious and parasitic diseases; Z87.891 Personal history of nicotine dependence; Z74.01 Bed confinement status

== ENCOUNTER 2017-09-24 18:33 | Inpatient (IN) | payer OTHER ==
[2017-09-24 21:52] VITALS: BMI 31.4
[2017-09-25 06:19] LABS: HEMOGLOBIN 11.6 g/dL (12.0-18.0); MEAN CELL VOLUME 84.6 fl (80.0-94.0); MEAN CORPUSCULAR HEMOGLOBIN 28.4 pg (27.0-31.0); MEAN CORPUSCULAR HGB CONC 33.5 g/dL (33.0-37.0); RBC 4.09 Mil/uL (4.40-5.90); RED CELL DISTRIBUTION WIDTH 21.8 % (11.5-14.5); WHITE BLOOD COUNT 5.7 K/uL (4.8-10.8)
[2017-09-25 06:33] LABS: CALCIUM 9.3 mg/dL (8.4-10.2)
[2017-09-25] MEDS: guaiFENesin-DM 600-30 mg ER Tab PO SCH ×2 (08:57→16:24)
[2017-09-25] MEDS: Calcium Acetate 667 MG Capsule PO SCH ×3 (09:01→16:24)
[2017-09-25] MEDS: Oxycodone/Acetaminophen 5/325 mg Tab PO PRN ×2 (09:05→16:22)
--- NOTE | 2017-09-25 09:36 | CP.PCM.HP ---
History of Present Illness - History of Present Illness History of Present Illness: 62 YR OLD MALE ADMITTED TO TCU FOR REHAB FOLLOWING PACEMAKER PLACEMENT AND THERAPY FOR CHF AND RENAL FAILURE. HX OF LIVER TRANSPLANT AND ATRIAL FIBRILLATION IN THE PAST. Present on Admission - Present on Admission Any Indicators Present on Admission: Yes Past Patient History - Past Medical History & Family History Past Medical History?: Yes - Past Social History Smoking Status: Former Smoker - CARDIAC Hx Atrial Fibrillation: Yes Hx Congestive Heart Failure: Yes Hx Hypercholesterolemia: Yes Hx Pacemaker: Yes (09/20/17) - PULMONARY Hx Pulmonary Embolism: Yes - HEENT Hx Deafness: Yes (left ear) - RENAL Hx Chronic Kidney Disease: Yes Hx Renal Failure: Yes (esrf) - HEMATOLOGICAL/ONCOLOGICAL Hx Blood Transfusions: Yes Hx Blood Transfusion Reaction: No Hx Hepatitis B: Yes Other/Comment: dvt - MUSCULOSKELETAL/RHEUMATOLOGICAL Hx Falls: No - GASTROINTESTINAL Other/Comment: Hx liver transplant - GENITOURINARY/GYNECOLOGICAL Hx Genitourinary Disorders: Yes Hx Urinary Tract Infection: Yes - PSYCHIATRIC Hx Anxiety: Yes Hx Substance Use: No - SURGICAL HISTORY Hx Liver Transplant: Yes (1998) Other/Comment: brain surgery 1984 - ANESTHESIA Hx Anesthesia: Yes Hx Anesthesia Reactions: No Meds Allergies/Adverse Reactions: Allergies Allergy/AdvReac Type Severity Reaction Status Date / Time No Known Allergies Allergy Verified 09/12/17 14:42 Physical Exam - Constitutional Appears: No Acute Distress - Head Exam Head Exam: ATRAUMATIC, NORMAL INSPECTION, NORMOCEPHALIC - Eye Exam Eye Exam: EOMI, Normal appearance, PERRL Pupil Exam: NORMAL ACCOMODATION, PERRL - ENT Exam ENT Exam: Mucous Membranes Moist, Normal Exam - Neck Exam Neck exam: Positive for: Normal Inspection - Respiratory Exam Respiratory Exam: Clear to Auscultation Bilateral, NORMAL BREATHING PATTERN - Cardiovascular Exam Cardiovascular Exam: REGULAR RHYTHM Additional comments: PACEMAKER SITE IS HEALING WELL - GI/Abdominal Exam GI & Abdominal Exam: Normal Bowel Sounds, Soft. absent: Tenderness - Rectal Exam Rectal Exam: NORMAL INSPECTION - Extremities Exam Extremities exam: Positive for: normal inspection - Back Exam Back exam: NORMAL INSPECTION - Neurological Exam Neurological exam: Abnormal Gait, Alert, CN II-XII Intact, Oriented x3, Reflexes Normal - Psychiatric Exam Psychiatric exam: Normal Affect, Normal Mood - Skin Skin Exam: Dry, Intact, Normal Color, Warm Results - Vital Signs Recent Vital Signs: Last Vital Signs Temp 97.7 F 09/25/17 09:12 Pulse 67 09/25/17 09:12 Resp 20 09/25/17 09:12 BP 120/75 09/25/17 09:12 Pulse Ox 95 09/25/17 09:12 - Labs Result Diagrams: 09/25/17 05:40 09/25/17 05:40 Labs: Laboratory Results - last 24 hr 09/25/17 09/25/17 05:40 05:40 WBC 5.7 RBC 4.09 L Hgb 11.6 L Hct 34.6 L MCV 84.6 MCH 28.4 MCHC 33.5 RDW 21.8 H Plt Count 147 Sodium 138 Potassium 4.7 Chloride 105 Carbon Dioxide 25 Anion Gap 13 BUN 37 H Creatinine 2.5 H Est GFR ( Amer) 32 Est GFR (Non-Af Amer) 26 Random Glucose 89 Calcium 9.3 Assessment & Plan - Assessment and Plan (Free Text) Assessment: CHF ARRYTHMIAS ASHD RENAL FAILURE--STAGE 4 HX OF LIVER TRANSPLANT S/P PACEMAKER PLACEMENT SEPSIS/UTI-RESOLVED GENERAL DEBILITY Plan: CONTINUE RX ORDERED - Date & Time Date: 09/25/17 Time: 09:38
--- NOTE | 2017-09-25 12:13 | CP.PCM.CON ---
History of Present Illness - History of Present Illness History of Present Illness: patient is a 62 years of age male was admitted initially with severe congestive heart failure and bilateral leg edema and acute kidney failure superimposed on chronic kidney disease. In addition of liver transplant history. Patient has responded to gentle hydration and conservative medication and his kidney function improving and he has a chronic atrial fibrillation with irregular heartbeat require to have biventricular pacemaker. Patient transferred from the floor for rehabilitation Review of Systems - Constitutional Constitutional: absent: Anorexia, Chills - Cardiovascular Cardiovascular: Dyspnea on Exertion, Edema. absent: Chest Pain - Respiratory Respiratory: Chest Congestion. absent: Hemoptysis - Genitourinary Genitourinary: Nocturia - Musculoskeletal Musculoskeletal: Muscle Weakness. absent: Back Pain - Neurological Neurological: As Per HPI. absent: Confusion, Focal Weakness - Hematologic/Lymphatic Hematologic: absent: Easy Bleeding Past Patient History - Past Medical History & Family History Past Medical History?: Yes - Past Social History Smoking Status: Former Smoker - CARDIAC Hx Congestive Heart Failure: Yes Hx Hypercholesterolemia: Yes - PULMONARY Hx Pulmonary Embolism: Yes - HEENT Hx Deafness: Yes (left ear) - RENAL Hx Renal Failure: Yes - HEMATOLOGICAL/ONCOLOGICAL Hx Blood Transfusions: Yes Hx Blood Transfusion Reaction: No Hx Hepatitis B: Yes Other/Comment: dvt - MUSCULOSKELETAL/RHEUMATOLOGICAL Hx Falls: No - GASTROINTESTINAL Other/Comment: Hx liver transplant - GENITOURINARY/GYNECOLOGICAL Hx Genitourinary Disorders: Yes Hx Urinary Tract Infection: Yes - PSYCHIATRIC Hx Anxiety: Yes Hx Substance Use: No - SURGICAL HISTORY Hx Liver Transplant: Yes (1998) Other/Comment: brain surgery 1984 - ANESTHESIA Hx Anesthesia: Yes Hx Anesthesia Reactions: No Meds Allergies/Adverse Reactions: Allergies Allergy/AdvReac Type Severity Reaction Status Date / Time No Known Allergies Allergy Verified 09/12/17 14:42 - Medications Medications: Current Medications Alprazolam (Xanax) 0.5 mg PO BID PRN PRN Reason: Anxiety Atorvastatin Calcium (Lipitor) 10 mg PO HS [facility] Calcium Acetate (Phoslo) 667 mg PO TID [facility] Last Admin: 09/25/17 09:01 Dose: 667 mg Carvedilol (Coreg) 6.25 mg PO Q12 [facility] Last Admin: 09/25/17 08:58 Dose: 6.25 mg Famotidine (Pepcid) 20 mg PO DAILY [facility] Last Admin: 08/07/18 08:59 Dose: 20 mg Guaifenesin/Dextromethorphan (Mucinex-Dm 600-30 Mg) 1 tab PO BID [facility] Last Admin: 09/25/17 08:57 Dose: 1 tab Ondansetron HCl (Zofran Tab) 4 mg PO Q6 PRN PRN Reason: Nausea/Vomiting Oxycodone/Acetaminophen (Percocet 5/325 Mg Tab) 1 tab PO Q6 PRN PRN Reason: Pain, moderate (4-7) Stop: 09/27/17 22:20 Last Admin: 09/25/17 09:05 Dose: 1 tab Tacrolimus (Prograf Cap) 0.5 mg PO DAILY [facility] Last Admin: 09/25/17 09:01 Dose: 0.5 mg Zolpidem Tartrate (Ambien) 5 mg PO HS PRN PRN Reason: Insomnia Last Admin: 09/24/17 23:28 Dose: 5 mg Physical Exam - Constitutional Appears: No Acute Distress - Eye Exam Eye Exam: Conjunctival injection - ENT Exam ENT Exam: Mucous Membranes Moist - Neck Exam Neck exam: Negative for: Lymphadenopathy - Respiratory Exam Respiratory Exam: NORMAL BREATHING PATTERN - Cardiovascular Exam Cardiovascular Exam: absent: Gallop, JVD, Rubs - Extremities Exam Extremities exam: Positive for: pedal edema. Negative for: calf tenderness - Back Exam Back exam: absent: CVA tenderness (L), CVA tenderness (R) - Neurological Exam Neurological exam: Alert - Psychiatric Exam Psychiatric exam: Anxious Results - Vital Signs Recent Vital Signs: Last Vital Signs Temp 97.7 F 09/25/17 09:12 Pulse 67 09/25/17 09:12 Resp 20 09/25/17 09:12 BP 120/75 09/25/17 09:12 Pulse Ox 95 09/25/17 09:12 - Labs Result Diagrams: 09/25/17 05:40 09/25/17 05:40 Labs: Laboratory Results - last 24 hr 09/25/17 09/25/17 05:40 05:40 WBC 5.7 RBC 4.09 L Hgb 11.6 L Hct 34.6 L MCV 84.6 MCH 28.4 MCHC 33.5 RDW 21.8 H Plt Count 147 Sodium 138 Potassium 4.7 Chloride 105 Carbon Dioxide 25 Anion Gap 13 BUN 37 H Creatinine 2.5 H Est GFR ( Amer) 32 Est GFR (Non-Af Amer) 26 Random Glucose 89 Calcium 9.3 Assessment & Plan (1) Chronic kidney disease, stage IV (severe) Assessment and Plan: patient admitted with acute kidney injury which has been improving superimposed on chronic kidney disease stage IV which has been stable Patient receiving Prograf for liver transplant which to be continue with 0.5 twice a day and repeat Prograf level patient stated that he has not been taken Prograf 42-3 days? continue monitoring kidney function That this post liver transplant That this post biventricular pacemaker Status: Acute
[2017-09-25] MEDS ORDERED: ENTECAVIR 0.5 MG PO SCH (13:00)
[2017-09-25 15:47] VITALS: RESP 20
[2017-09-26] MEDS: guaiFENesin-DM 600-30 mg ER Tab PO SCH ×2 (09:30→17:32)
[2017-09-26] MEDS: Calcium Acetate 667 MG Capsule PO SCH ×3 (09:31→17:34)
[2017-09-26] MEDS: Oxycodone/Acetaminophen 5/325 mg Tab PO PRN ×2 (11:47→20:30)
--- NOTE | 2017-09-26 13:07 | CP.PCM.PN ---
Subjective - Date & Time of Evaluation Date of Evaluation: 09/26/17 Time of Evaluation: 13:08 - Subjective Subjective: patient is out of bed and receiving physiotherapy in the subacute rehabilitation Vital signs stable Objective - Vital Signs/Intake and Output Vital Signs (last 24 hours): Temp Pulse Resp BP Pulse Ox 97.1 F L 70 20 130/84 96 09/26/17 08:21 09/26/17 09:30 09/26/17 08:21 09/26/17 09:30 09/26/17 08:21 - Medications Medications: Current Medications Alprazolam (Xanax) 0.5 mg PO BID PRN PRN Reason: Anxiety Atorvastatin Calcium (Lipitor) 10 mg PO HS [facility] Last Admin: 09/25/17 21:56 Dose: 10 mg Calcium Acetate (Phoslo) 667 mg PO TID [facility] Last Admin: 09/26/17 09:31 Dose: 667 mg Carvedilol (Coreg) 6.25 mg PO Q12 [facility] Last Admin: 09/26/17 09:30 Dose: 6.25 mg Famotidine (Pepcid) 20 mg PO DAILY [facility] Last Admin: 09/26/17 09:30 Dose: 20 mg Furosemide (Lasix) 40 mg PO DAILY [facility] Last Admin: 09/26/17 09:30 Dose: 40 mg Guaifenesin/Dextromethorphan (Mucinex-Dm 600-30 Mg) 1 tab PO BID [facility] Last Admin: 09/26/17 09:30 Dose: 1 tab Home Med (Entecavir [Baraclude]) 0.5 mg PO Q48H [facility] Ondansetron HCl (Zofran Tab) 4 mg PO Q6 PRN PRN Reason: Nausea/Vomiting Oxycodone/Acetaminophen (Percocet 5/325 Mg Tab) 1 tab PO Q6 PRN PRN Reason: Pain, moderate (4-7) Stop: 09/27/17 22:20 Last Admin: 09/26/17 11:47 Dose: 1 tab Rivaroxaban (Xarelto) 10 mg PO HS [facility] PRN Reason: Protocol Last Admin: 09/25/17 21:57 Dose: 10 mg Tacrolimus (Prograf Cap) 0.5 mg PO Q12 [facility] Last Admin: 09/26/17 09:31 Dose: 0.5 mg Zolpidem Tartrate (Ambien) 5 mg PO HS PRN PRN Reason: Insomnia Last Admin: 09/25/17 23:53 Dose: 5 mg - Labs Labs: 09/25/17 05:40 09/25/17 05:40 - Constitutional Appears: No Acute Distress - ENT Exam ENT Exam: absent: Mucous Membranes Moist - Neck Exam Neck Exam: absent: Lymphadenopathy - Respiratory Exam Respiratory Exam: NORMAL BREATHING PATTERN. absent: Chest Wall Tenderness - Cardiovascular Exam Cardiovascular Exam: absent: JVD, Rubs - GI/Abdominal Exam GI & Abdominal Exam: Soft, Normal Bowel Sounds - Extremities Exam Extremities Exam: absent: Calf Tenderness - Back Exam Back Exam: absent: CVA tenderness (L), CVA tenderness (R) - Neurological Exam Neurological Exam: Alert - Psychiatric Exam Psychiatric exam: Normal Affect - Skin Skin Exam: absent: Cyanosis Assessment and Plan (1) Chronic kidney disease, stage IV (severe) Assessment & Plan: patient admitted with acute kidney injury which has been improving superimposed on chronic kidney disease stage IV which has been stable Patient receiving Prograf for liver transplant which to be continue with 0.5 twice a day and repeat Prograf level . continue monitoring kidney function status post liver transplant S/Pt biventricular pacemaker Status: Acute
--- NOTE | 2017-09-27 08:02 | CP.PCM.PN ---
Subjective - Date & Time of Evaluation Date of Evaluation: 09/27/17 Time of Evaluation: 08:02 - Subjective Subjective: FEELS BETTER STILL COUGHING BUT UNABLE TO EXPECTORATE SPUTUM DENIES CHEST PAINS/SOB REFUSES NEBULIZER RX Objective - Vital Signs/Intake and Output Vital Signs (last 24 hours): Temp Pulse Resp BP Pulse Ox 97.2 F L 71 20 138/87 94 L 09/26/17 21:52 09/26/17 21:52 09/26/17 21:52 09/26/17 21:52 09/26/17 21:52 - Medications Medications: Current Medications Alprazolam (Xanax) 0.5 mg PO BID PRN PRN Reason: Anxiety Atorvastatin Calcium (Lipitor) 10 mg PO [facility] Last Admin: 09/26/17 21:06 Dose: 10 mg Calcium Acetate (Phoslo) 667 mg PO TID [facility] Last Admin: 09/26/17 17:34 Dose: Not Given Carvedilol (Coreg) 6.25 mg PO Q12 [facility] Last Admin: 09/26/17 21:06 Dose: 6.25 mg Famotidine (Pepcid) 20 mg PO DAILY [facility] Last Admin: 09/26/17 09:30 Dose: 20 mg Furosemide (Lasix) 40 mg PO DAILY [facility] Last Admin: 09/26/17 09:30 Dose: 40 mg Guaifenesin/Dextromethorphan (Mucinex-Dm 600-30 Mg) 1 tab PO BID [facility] Last Admin: 09/26/17 17:32 Dose: 1 tab Home Med (Entecavir [Baraclude]) 0.5 mg PO Q48H [facility] Ondansetron HCl (Zofran Tab) 4 mg PO Q6 PRN PRN Reason: Nausea/Vomiting Oxycodone/Acetaminophen (Percocet 5/325 Mg Tab) 1 tab PO Q6 PRN PRN Reason: Pain, moderate (4-7) Stop: 09/27/17 22:20 Last Admin: 09/26/17 20:30 Dose: 1 tab Rivaroxaban (Xarelto) 10 mg PO [facility] PRN Reason: Protocol Last Admin: 09/26/17 21:06 Dose: 10 mg Tacrolimus (Prograf Cap) 0.5 mg PO Q12 [facility] Last Admin: 09/26/17 21:06 Dose: 0.5 mg Zolpidem Tartrate (Ambien) 5 mg PO HS PRN PRN Reason: Insomnia Last Admin: 09/26/17 23:10 Dose: 5 mg - Labs Labs: 09/25/17 05:40 09/25/17 05:40 - Constitutional Appears: No Acute Distress - Head Exam Head Exam: ATRAUMATIC, NORMAL INSPECTION, NORMOCEPHALIC - Eye Exam Eye Exam: EOMI, Normal appearance, PERRL Pupil Exam: NORMAL ACCOMODATION, PERRL - ENT Exam ENT Exam: Mucous Membranes Moist, Normal Exam - Neck Exam Neck Exam: Full ROM, Normal Inspection. absent: Lymphadenopathy - Respiratory Exam Respiratory Exam: Decreased Breath Sounds, Rales, NORMAL BREATHING PATTERN - Cardiovascular Exam Cardiovascular Exam: REGULAR RHYTHM, +S1, +S2. absent: Murmur - GI/Abdominal Exam GI & Abdominal Exam: Soft, Normal Bowel Sounds. absent: Tenderness - Rectal Exam Rectal Exam: NORMAL INSPECTION - Extremities Exam Extremities Exam: Full ROM, Normal Capillary Refill, Normal Inspection. absent : Joint Swelling, Pedal Edema - Back Exam Back Exam: NORMAL INSPECTION - Neurological Exam Neurological Exam: Alert, Awake, CN II-XII Intact, Normal Gait, Oriented x3 - Psychiatric Exam Psychiatric exam: Normal Affect, Normal Mood - Skin Skin Exam: Dry, Intact, Normal Color, Warm Assessment and Plan - Assessment and Plan (Free Text) Assessment: CHF--IMPROVED ARRYTHMIAS--S/P PACEMAKER PLACEMENT ASHD S/P LIVER TRANSPLANT CHRONIC KIDNEY DZ COUGH Plan: CONTINUE CURRENT RX CHEST PT
[2017-09-27] MEDS: guaiFENesin-DM 600-30 mg ER Tab PO SCH ×2 (08:45→17:41)
[2017-09-27] MEDS: Calcium Acetate 667 MG Capsule PO SCH ×3 (08:46→17:41)
--- NOTE | 2017-09-27 09:40 | CP.PCM.PN ---
Subjective - Date & Time of Evaluation Date of Evaluation: 09/27/17 Time of Evaluation: 09:39 - Subjective Subjective: patient awake and conscious not in acute distress appears to be comfortable Objective - Vital Signs/Intake and Output Vital Signs (last 24 hours): Temp Pulse Resp BP Pulse Ox 97.5 F L 68 20 130/75 100 09/27/17 08:11 09/27/17 08:44 09/27/17 08:11 09/27/17 08:45 09/27/17 08:11 - Medications Medications: Current Medications Alprazolam (Xanax) 0.5 mg PO BID PRN PRN Reason: Anxiety Atorvastatin Calcium (Lipitor) 10 mg PO HS [facility] Last Admin: 09/26/17 21:06 Dose: 10 mg Calcium Acetate (Phoslo) 667 mg PO TID [facility] Last Admin: 09/27/17 08:46 Dose: 667 mg Carvedilol (Coreg) 6.25 mg PO Q12 [facility] Last Admin: 09/27/17 08:44 Dose: 6.25 mg Famotidine (Pepcid) 20 mg PO DAILY [facility] Last Admin: 09/27/17 08:45 Dose: 20 mg Furosemide (Lasix) 40 mg PO DAILY [facility] Last Admin: 09/27/17 08:45 Dose: 40 mg Guaifenesin/Dextromethorphan (Mucinex-Dm 600-30 Mg) 1 tab PO BID [facility] Last Admin: 09/27/17 08:45 Dose: 1 tab Home Med (Entecavir [Baraclude]) 0.5 mg PO Q48H [facility] Ondansetron HCl (Zofran Tab) 4 mg PO Q6 PRN PRN Reason: Nausea/Vomiting Oxycodone/Acetaminophen (Percocet 5/325 Mg Tab) 1 tab PO Q6 PRN PRN Reason: Pain, moderate (4-7) Stop: 09/27/17 22:20 Last Admin: 09/26/17 20:30 Dose: 1 tab Rivaroxaban (Xarelto) 10 mg PO HS [facility] PRN Reason: Protocol Last Admin: 09/26/17 21:06 Dose: 10 mg Tacrolimus (Prograf Cap) 0.5 mg PO Q12 [facility] Last Admin: 09/27/17 08:46 Dose: 0.5 mg Zolpidem Tartrate (Ambien) 5 mg PO HS PRN PRN Reason: Insomnia Last Admin: 09/26/17 23:10 Dose: 5 mg - Labs Labs: 09/25/17 05:40 09/25/17 05:40 - Constitutional Appears: No Acute Distress - ENT Exam ENT Exam: Mucous Membranes Moist - Neck Exam Neck Exam: absent: Lymphadenopathy - Respiratory Exam Respiratory Exam: absent: Chest Wall Tenderness - Cardiovascular Exam Cardiovascular Exam: absent: JVD, Rubs - GI/Abdominal Exam GI & Abdominal Exam: Soft. absent: Guarding - Extremities Exam Extremities Exam: absent: Calf Tenderness - Back Exam Back Exam: absent: CVA tenderness (L), CVA tenderness (R) - Neurological Exam Neurological Exam: Alert - Psychiatric Exam Psychiatric exam: Normal Affect - Skin Skin Exam: absent: Cyanosis Assessment and Plan (1) Chronic kidney disease, stage IV (severe) Assessment & Plan: patient admitted with acute kidney injury which has been improving superimposed on chronic kidney disease stage IV which has been stable Patient receiving Prograf for liver transplant which to be continue with 0.5 twice a day and repeat Prograf level . continue monitoring kidney function status post liver transplant S/Pt biventricular pacemaker Status: Acute
[2017-09-27] MEDS: Oxycodone/Acetaminophen 5/325 mg Tab PO PRN ×2 (14:42→21:55)
--- NOTE | 2017-09-27 20:46 | CP.PCM.CON ---
Past Patient History - Past Medical History & Family History Past Medical History?: Yes - Past Social History Smoking Status: Former Smoker - CARDIAC Hx Congestive Heart Failure: Yes Hx Hypercholesterolemia: Yes - PULMONARY Hx Pulmonary Embolism: Yes - HEENT Hx Deafness: Yes (left ear) - RENAL Hx Renal Failure: Yes - HEMATOLOGICAL/ONCOLOGICAL Hx Blood Transfusions: Yes Hx Blood Transfusion Reaction: No Hx Hepatitis B: Yes Other/Comment: dvt - MUSCULOSKELETAL/RHEUMATOLOGICAL Hx Falls: No - GASTROINTESTINAL Other/Comment: Hx liver transplant - GENITOURINARY/GYNECOLOGICAL Hx Genitourinary Disorders: Yes Hx Urinary Tract Infection: Yes - PSYCHIATRIC Hx Anxiety: Yes Hx Substance Use: No - SURGICAL HISTORY Hx Liver Transplant: Yes (1998) Other/Comment: brain surgery 1984 - ANESTHESIA Hx Anesthesia: Yes Hx Anesthesia Reactions: No Meds Allergies/Adverse Reactions: Allergies Allergy/AdvReac Type Severity Reaction Status Date / Time No Known Allergies Allergy Verified 09/12/17 14:42 - Medications Medications: Current Medications Alprazolam (Xanax) 0.5 mg PO BID PRN PRN Reason: Anxiety Atorvastatin Calcium (Lipitor) 10 mg PO HS [facility] Last Admin: 09/26/17 21:06 Dose: 10 mg Calcium Acetate (Phoslo) 667 mg PO TID [facility] Last Admin: 09/27/17 17:41 Dose: 667 mg Carvedilol (Coreg) 6.25 mg PO Q12 [facility] Last Admin: 09/27/17 08:44 Dose: 6.25 mg Famotidine (Pepcid) 20 mg PO DAILY [facility] Last Admin: 09/27/17 08:45 Dose: 20 mg Furosemide (Lasix) 40 mg PO DAILY [facility] Last Admin: 09/27/17 08:45 Dose: 40 mg Guaifenesin/Dextromethorphan (Mucinex-Dm 600-30 Mg) 1 tab PO BID [facility] Last Admin: 09/27/17 17:41 Dose: 1 tab Home Med (Entecavir [Baraclude]) 0.5 mg PO Q48H [facility] Ondansetron HCl (Zofran Tab) 4 mg PO Q6 PRN PRN Reason: Nausea/Vomiting Last Admin: 09/27/17 12:50 Dose: 4 mg Oxycodone/Acetaminophen (Percocet 5/325 Mg Tab) 1 tab PO Q6 PRN PRN Reason: Pain, moderate (4-7) Stop: 09/27/17 22:20 Last Admin: 09/27/17 14:42 Dose: 1 tab Rivaroxaban (Xarelto) 10 mg PO HS [facility] PRN Reason: Protocol Last Admin: 09/26/17 21:06 Dose: 10 mg Tacrolimus (Prograf Cap) 0.5 mg PO Q12 [facility] Last Admin: 09/27/17 08:46 Dose: 0.5 mg Zolpidem Tartrate (Ambien) 5 mg PO HS PRN PRN Reason: Insomnia Last Admin: 09/26/17 23:10 Dose: 5 mg Results - Vital Signs Recent Vital Signs: Last Vital Signs Temp 97.3 F L 09/27/17 15:52 Pulse 69 09/27/17 15:52 Resp 20 09/27/17 15:52 BP 111/65 09/27/17 15:52 Pulse Ox 96 09/27/17 15:52 - Labs Result Diagrams: 09/25/17 05:40 09/25/17 05:40
[2017-09-28 07:50] LABS: BASO # 0.1 K/uL (0.0-0.2); BASO % 1.1 % (0.0-2.0); EOS # 0.4 K/uL (0.0-0.7); HEMOGLOBIN 11.4 g/dL (12.0-18.0); LYMPH # 1.1 K/uL (1.0-4.3); LYMPH % 21.3 % (20.0-40.0); MEAN CELL VOLUME 84.7 fl (80.0-94.0); MEAN CORPUSCULAR HEMOGLOBIN 28.4 pg (27.0-31.0); MEAN CORPUSCULAR HGB CONC 33.5 g/dL (33.0-37.0); MONO # 0.7 K/uL (0.0-0.8); MONO % 14.9 % (0.0-10.0); NEUT # 2.8 K/uL (1.8-7.0); NEUT % 55.7 % (50.0-75.0); NRBC % 0.1 % (0.0-0.0); RED CELL DISTRIBUTION WIDTH 21.7 % (11.5-14.5)
[2017-09-28] MEDS: guaiFENesin-DM 600-30 mg ER Tab PO SCH ×2 (08:23→16:36)
[2017-09-28] MEDS: Calcium Acetate 667 MG Capsule PO SCH (08:25)
[2017-09-28 08:40] LABS: CALCIUM 8.9 mg/dL (8.4-10.2)
--- NOTE | 2017-09-28 12:26 | CP.PCM.PN ---
Subjective - Date & Time of Evaluation Date of Evaluation: 09/28/17 Time of Evaluation: 12:27 - Subjective Subjective: NO APPARENT DISTRESS PERTAKING IN PT Objective - Vital Signs/Intake and Output Vital Signs (last 24 hours): Temp Pulse Resp BP Pulse Ox 98.1 F 73 20 120/70 99 09/28/17 08:44 09/28/17 08:44 09/28/17 08:44 09/28/17 08:44 09/28/17 08:44 - Medications Medications: Current Medications Alprazolam (Xanax) 0.5 mg PO BID PRN PRN Reason: Anxiety Atorvastatin Calcium (Lipitor) 10 mg PO HS [facility] Last Admin: 09/27/17 21:56 Dose: 10 mg Calcium Acetate (Phoslo) 667 mg PO TID [facility] Last Admin: 09/28/17 08:25 Dose: 667 mg Carvedilol (Coreg) 6.25 mg PO Q12 [facility] Last Admin: 09/28/17 08:24 Dose: 6.25 mg Famotidine (Pepcid) 20 mg PO DAILY [facility] Last Admin: 09/28/17 08:26 Dose: 20 mg Furosemide (Lasix) 40 mg PO DAILY [facility] Last Admin: 09/28/17 08:24 Dose: 40 mg Guaifenesin/Dextromethorphan (Mucinex-Dm 600-30 Mg) 1 tab PO BID [facility] Last Admin: 09/28/17 08:23 Dose: 1 tab Home Med (Entecavir [Baraclude]) 0.5 mg PO Q48H [facility] Ondansetron HCl (Zofran Tab) 4 mg PO Q6 PRN PRN Reason: Nausea/Vomiting Last Admin: 09/27/17 12:50 Dose: 4 mg Rivaroxaban (Xarelto) 10 mg PO HS [facility] PRN Reason: Protocol Last Admin: 09/27/17 21:56 Dose: 10 mg Tacrolimus (Prograf Cap) 0.5 mg PO Q12 [facility] Last Admin: 09/28/17 08:24 Dose: 0.5 mg Zolpidem Tartrate (Ambien) 5 mg PO HS PRN PRN Reason: Insomnia Last Admin: 09/27/17 22:47 Dose: 5 mg - Labs Labs: 09/28/17 06:55 09/28/17 06:55 - Constitutional Appears: No Acute Distress - Head Exam Head Exam: ATRAUMATIC, NORMAL INSPECTION, NORMOCEPHALIC - Eye Exam Eye Exam: EOMI, Normal appearance, PERRL Pupil Exam: NORMAL ACCOMODATION, PERRL - ENT Exam ENT Exam: Mucous Membranes Moist, Normal Exam - Neck Exam Neck Exam: Full ROM, Normal Inspection. absent: Lymphadenopathy - Respiratory Exam Respiratory Exam: Clear to Ausculation Bilateral, NORMAL BREATHING PATTERN - Cardiovascular Exam Cardiovascular Exam: REGULAR RHYTHM, +S1, +S2. absent: Murmur - GI/Abdominal Exam GI & Abdominal Exam: Soft, Normal Bowel Sounds. absent: Tenderness - Rectal Exam Rectal Exam: NORMAL INSPECTION - Extremities Exam Extremities Exam: Full ROM, Normal Capillary Refill, Normal Inspection. absent : Joint Swelling, Pedal Edema - Back Exam Back Exam: NORMAL INSPECTION - Neurological Exam Neurological Exam: Alert, Awake, CN II-XII Intact, Normal Gait, Oriented x3 - Psychiatric Exam Psychiatric exam: Normal Affect, Normal Mood - Skin Skin Exam: Dry, Intact, Normal Color, Warm Assessment and Plan - Assessment and Plan (Free Text) Assessment: CHF STABLE S/P LIVER TRANSPLANT ARRYTHMIAS-STABLE S/P PACEMAKER PLACEMENT CHRONIC KIDNEY DZ Plan: CONTINUE RX ORDERED
--- NOTE | 2017-09-28 13:39 | CP.PCM.PN ---
Subjective - Date & Time of Evaluation Date of Evaluation: 09/28/17 Time of Evaluation: 13:40 - Subjective Subjective: patient sittingbed awake conscious not in acute distress. Objective - Vital Signs/Intake and Output Vital Signs (last 24 hours): Temp Pulse Resp BP Pulse Ox 98.1 F 73 20 120/70 99 09/28/17 08:44 09/28/17 08:44 09/28/17 08:44 09/28/17 08:44 09/28/17 08:44 - Medications Medications: Current Medications Alprazolam (Xanax) 0.5 mg PO BID PRN PRN Reason: Anxiety Atorvastatin Calcium (Lipitor) 10 mg PO HS [facility] Last Admin: 09/27/17 21:56 Dose: 10 mg Calcium Acetate (Phoslo) 667 mg PO TID [facility] Last Admin: 09/28/17 08:25 Dose: 667 mg Carvedilol (Coreg) 6.25 mg PO Q12 [facility] Last Admin: 09/28/17 08:24 Dose: 6.25 mg Famotidine (Pepcid) 20 mg PO DAILY [facility] Last Admin: 09/28/17 08:26 Dose: 20 mg Furosemide (Lasix) 40 mg PO DAILY [facility] Last Admin: 09/28/17 08:24 Dose: 40 mg Guaifenesin/Dextromethorphan (Mucinex-Dm 600-30 Mg) 1 tab PO BID [facility] Last Admin: 09/28/17 08:23 Dose: 1 tab Home Med (Entecavir [Baraclude]) 0.5 mg PO Q48H [facility] Ondansetron HCl (Zofran Tab) 4 mg PO Q6 PRN PRN Reason: Nausea/Vomiting Last Admin: 09/27/17 12:50 Dose: 4 mg Oxycodone/Acetaminophen (Percocet 5/325 Mg Tab) 1 tab PO Q4 PRN PRN Reason: Pain, moderate (4-7) Stop: 10/01/17 12:29 Rivaroxaban (Xarelto) 10 mg PO HS [facility] PRN Reason: Protocol Last Admin: 09/27/17 21:56 Dose: 10 mg Tacrolimus (Prograf Cap) 0.5 mg PO Q12 [facility] Last Admin: 09/28/17 08:24 Dose: 0.5 mg Zolpidem Tartrate (Ambien) 5 mg PO HS PRN PRN Reason: Insomnia Last Admin: 09/27/17 22:47 Dose: 5 mg - Labs Labs: 09/28/17 06:55 09/28/17 06:55 - Constitutional Appears: No Acute Distress - Eye Exam Eye Exam: Conjunctival injection - ENT Exam ENT Exam: Mucous Membranes Moist - Neck Exam Neck Exam: absent: Lymphadenopathy - Respiratory Exam Respiratory Exam: NORMAL BREATHING PATTERN. absent: Chest Wall Tenderness - Cardiovascular Exam Cardiovascular Exam: absent: JVD, Rubs - GI/Abdominal Exam GI & Abdominal Exam: Soft, Normal Bowel Sounds - Extremities Exam Extremities Exam: absent: Calf Tenderness - Back Exam Back Exam: absent: CVA tenderness (L), CVA tenderness (R) - Neurological Exam Neurological Exam: Alert - Psychiatric Exam Psychiatric exam: Normal Affect Assessment and Plan (1) Chronic kidney disease, stage IV (severe) Assessment & Plan: patient admitted with acute kidney injury which has been improving superimposed on chronic kidney disease stage IV which has been stable Patient receiving Prograf for liver transplant which to be continue with 0.5 twice a day and repeat Prograf level . continue monitoring kidney function status post liver transplant S/Pt biventricular pacemaker serum tacrolimus level still pending Status: Acute
[2017-09-28] MEDS: Oxycodone/Acetaminophen 5/325 mg Tab PO PRN ×2 (16:35→21:50)
[2017-09-29] MEDS: guaiFENesin-DM 600-30 mg ER Tab PO SCH ×2 (08:44→16:44)
--- NOTE | 2017-09-29 10:59 | CP.PCM.PN ---
Subjective - Date & Time of Evaluation Date of Evaluation: 09/29/17 Time of Evaluation: 11:01 - Subjective Subjective: NO APPARENT DISTRESS STILL COUGHING Objective - Vital Signs/Intake and Output Vital Signs (last 24 hours): Temp Pulse Resp BP Pulse Ox 97.9 F 69 20 129/74 96 09/29/17 08:51 09/29/17 08:51 09/29/17 08:51 09/29/17 08:51 09/29/17 08:51 - Medications Medications: Current Medications Alprazolam (Xanax) 0.5 mg PO BID PRN PRN Reason: Anxiety Atorvastatin Calcium (Lipitor) 10 mg PO HS [facility] Last Admin: 09/28/17 21:50 Dose: 10 mg Calcium Acetate (Phoslo) 667 mg PO TID [facility] Last Admin: 09/29/17 08:44 Dose: 667 mg Carvedilol (Coreg) 6.25 mg PO Q12 [facility] Last Admin: 09/29/17 08:44 Dose: 6.25 mg Famotidine (Pepcid) 20 mg PO DAILY [facility] Last Admin: 09/29/17 08:45 Dose: 20 mg Furosemide (Lasix) 40 mg PO DAILY [facility] Last Admin: 09/29/17 08:45 Dose: 40 mg Guaifenesin/Dextromethorphan (Mucinex-Dm 600-30 Mg) 1 tab PO BID [facility] Last Admin: 09/29/17 08:44 Dose: 1 tab Home Med (Entecavir [Baraclude]) 0.5 mg PO Q48H [facility] Ondansetron HCl (Zofran Tab) 4 mg PO Q6 PRN PRN Reason: Nausea/Vomiting Last Admin: 09/27/17 12:50 Dose: 4 mg Oxycodone/Acetaminophen (Percocet 5/325 Mg Tab) 1 tab PO Q4 PRN PRN Reason: Pain, moderate (4-7) Stop: 10/01/17 12:29 Last Admin: 09/28/17 21:50 Dose: 1 tab Rivaroxaban (Xarelto) 10 mg PO HS [facility] PRN Reason: Protocol Last Admin: 09/28/17 21:52 Dose: 10 mg Tacrolimus (Prograf Cap) 0.5 mg PO Q12 [facility] Last Admin: 09/29/17 08:43 Dose: 0.5 mg Zolpidem Tartrate (Ambien) 5 mg PO HS PRN PRN Reason: Insomnia Last Admin: 09/28/17 21:46 Dose: 5 mg - Labs Labs: 09/28/17 06:55 09/28/17 06:55 - Constitutional Appears: No Acute Distress - Head Exam Head Exam: ATRAUMATIC, NORMAL INSPECTION, NORMOCEPHALIC - Eye Exam Eye Exam: EOMI, Normal appearance, PERRL Pupil Exam: NORMAL ACCOMODATION, PERRL - ENT Exam ENT Exam: Mucous Membranes Moist, Normal Exam - Neck Exam Neck Exam: Full ROM, Normal Inspection. absent: Lymphadenopathy - Respiratory Exam Respiratory Exam: Clear to Ausculation Bilateral, NORMAL BREATHING PATTERN - Cardiovascular Exam Cardiovascular Exam: REGULAR RHYTHM, +S1, +S2. absent: Murmur Additional comments: PACEMAKER SITE HEALED - GI/Abdominal Exam GI & Abdominal Exam: Soft, Normal Bowel Sounds. absent: Tenderness - Rectal Exam Rectal Exam: NORMAL INSPECTION - Extremities Exam Extremities Exam: Full ROM, Normal Capillary Refill, Normal Inspection. absent : Joint Swelling, Pedal Edema - Back Exam Back Exam: NORMAL INSPECTION - Neurological Exam Neurological Exam: Alert, Awake, CN II-XII Intact, Normal Gait, Oriented x3 - Psychiatric Exam Psychiatric exam: Normal Affect, Normal Mood - Skin Skin Exam: Dry, Intact, Normal Color, Warm Assessment and Plan - Assessment and Plan (Free Text) Assessment: CHF CHRONIC COUGH CHRONIC KIDNEY DZ S/P LIVER TRANSPLANT S/P PACEMAKER PLACEMENT Plan: CONTINUE CURRENT RX
[2017-09-29] MEDS: Promethazine DM 12.5 mg-30 mg/10 ml Syrup PO SCH ×3 (12:42→21:57)
[2017-09-29] MEDS: Oxycodone/Acetaminophen 5/325 mg Tab PO PRN ×2 (14:13→22:09)
[2017-09-30] MEDS: Promethazine DM 12.5 mg-30 mg/10 ml Syrup PO SCH ×5 (04:26→23:12)
[2017-09-30] MEDS: guaiFENesin-DM 600-30 mg ER Tab PO SCH (09:11)
--- NOTE | 2017-09-30 11:34 | CP.PCM.PN ---
Subjective - Date & Time of Evaluation Date of Evaluation: 09/30/17 Time of Evaluation: 11:34 - Subjective Subjective: NO NEW CLINICAL FINDINGS NO APPARENT DISTRESS VSS Objective - Vital Signs/Intake and Output Vital Signs (last 24 hours): Temp Pulse Resp BP Pulse Ox 97.8 F 69 20 110/65 97 09/30/17 08:45 09/30/17 09:06 09/30/17 08:45 09/30/17 09:10 09/30/17 08:45 - Medications Medications: Current Medications Alprazolam (Xanax) 0.5 mg PO BID PRN PRN Reason: Anxiety Atorvastatin Calcium (Lipitor) 10 mg PO HS [facility] Last Admin: 09/29/17 21:55 Dose: 10 mg Calcium Acetate (Phoslo) 667 mg PO TID [facility] Last Admin: 09/30/17 09:07 Dose: 667 mg Carvedilol (Coreg) 6.25 mg PO Q12 [facility] Last Admin: 09/30/17 09:06 Dose: 6.25 mg Famotidine (Pepcid) 20 mg PO DAILY [facility] Last Admin: 09/30/17 09:07 Dose: 20 mg Furosemide (Lasix) 40 mg PO DAILY [facility] Last Admin: 09/30/17 09:10 Dose: 40 mg Home Med (Entecavir [Baraclude]) 0.5 mg PO Q48H [facility] Ondansetron HCl (Zofran Tab) 4 mg PO Q6 PRN PRN Reason: Nausea/Vomiting Last Admin: 09/27/17 12:50 Dose: 4 mg Oxycodone/Acetaminophen (Percocet 5/325 Mg Tab) 1 tab PO Q4 PRN PRN Reason: Pain, moderate (4-7) Stop: 10/01/17 12:29 Last Admin: 09/29/17 22:09 Dose: 1 tab Promethazine HCl/Dextromethorphan (Phenergan Dm Syrup) 10 ml PO 0000,0600,1200, 1800 [facility] Rivaroxaban (Xarelto) 10 mg PO HS [facility] PRN Reason: Protocol Last Admin: 09/29/17 21:55 Dose: 10 mg Tacrolimus (Prograf Cap) 0.5 mg PO Q12 [facility] Last Admin: 09/30/17 09:07 Dose: 0.5 mg Zolpidem Tartrate (Ambien) 5 mg PO HS PRN PRN Reason: Insomnia Last Admin: 09/29/17 22:08 Dose: 5 mg - Labs Labs: 09/28/17 06:55 09/28/17 06:55 - Constitutional Appears: Well - Head Exam Head Exam: ATRAUMATIC, NORMAL INSPECTION, NORMOCEPHALIC - Eye Exam Eye Exam: EOMI, Normal appearance, PERRL Pupil Exam: NORMAL ACCOMODATION, PERRL - ENT Exam ENT Exam: Mucous Membranes Moist, Normal Exam - Neck Exam Neck Exam: Full ROM, Normal Inspection. absent: Lymphadenopathy - Respiratory Exam Respiratory Exam: Clear to Ausculation Bilateral, NORMAL BREATHING PATTERN - Cardiovascular Exam Cardiovascular Exam: REGULAR RHYTHM, +S1, +S2. absent: Murmur - GI/Abdominal Exam GI & Abdominal Exam: Soft, Normal Bowel Sounds. absent: Tenderness - Rectal Exam Rectal Exam: NORMAL INSPECTION - Extremities Exam Extremities Exam: Full ROM, Normal Capillary Refill, Normal Inspection. absent : Joint Swelling, Pedal Edema - Back Exam Back Exam: NORMAL INSPECTION - Neurological Exam Neurological Exam: Alert, Awake, CN II-XII Intact, Normal Gait, Oriented x3 - Psychiatric Exam Psychiatric exam: Normal Affect, Normal Mood - Skin Skin Exam: Dry, Intact, Normal Color, Warm Assessment and Plan - Assessment and Plan (Free Text) Assessment: CHF-STABLE CHRONIC KIDNEY DZ ARRYTHMIAS-STABLE S/P PACEMAKER PLACEMENT Plan: CONTINUE CURRENT RX
[2017-09-30] MEDS: Oxycodone/Acetaminophen 5/325 mg Tab PO PRN (20:52)
[2017-10-01] MEDS: Promethazine DM 12.5 mg-30 mg/10 ml Syrup PO SCH ×4 (06:00→23:04)
--- NOTE | 2017-10-01 08:44 | CP.PCM.PN ---
Subjective - Date & Time of Evaluation Date of Evaluation: 10/01/17 Time of Evaluation: 08:46 - Subjective Subjective: FEELS WELL NO APPARENT DISTRESS Objective - Vital Signs/Intake and Output Vital Signs (last 24 hours): Temp Pulse Resp BP Pulse Ox 98.1 F 70 20 126/70 100 10/01/17 08:16 10/01/17 08:37 10/01/17 08:16 10/01/17 08:37 10/01/17 08:16 - Medications Medications: Current Medications Alprazolam (Xanax) 0.5 mg PO BID PRN PRN Reason: Anxiety Atorvastatin Calcium (Lipitor) 10 mg PO HS [facility] Last Admin: 09/30/17 23:11 Dose: 10 mg Calcium Acetate (Phoslo) 667 mg PO TID [facility] Last Admin: 10/01/17 08:36 Dose: 667 mg Carvedilol (Coreg) 6.25 mg PO Q12 [facility] Last Admin: 10/01/17 08:37 Dose: 6.25 mg Famotidine (Pepcid) 20 mg PO DAILY [facility] Last Admin: 10/01/17 08:37 Dose: 20 mg Furosemide (Lasix) 40 mg PO DAILY [facility] Last Admin: 10/01/17 08:36 Dose: 40 mg Home Med (Entecavir [Baraclude]) 0.5 mg PO Q48H [facility] Ondansetron HCl (Zofran Tab) 4 mg PO Q6 PRN PRN Reason: Nausea/Vomiting Last Admin: 09/27/17 12:50 Dose: 4 mg Oxycodone/Acetaminophen (Percocet 5/325 Mg Tab) 1 tab PO Q4 PRN PRN Reason: Pain, moderate (4-7) Stop: 10/01/17 12:29 Last Admin: 09/30/17 20:52 Dose: 1 tab Promethazine HCl/Dextromethorphan (Phenergan Dm Syrup) 10 ml PO 0000,0600,1200, 1800 [facility] Last Admin: 10/01/17 06:00 Dose: Not Given Rivaroxaban (Xarelto) 10 mg PO HS [facility] PRN Reason: Protocol Last Admin: 09/30/17 23:14 Dose: 10 mg Tacrolimus (Prograf Cap) 0.5 mg PO Q12 [facility] Last Admin: 10/01/17 08:35 Dose: 0.5 mg Zolpidem Tartrate (Ambien) 5 mg PO HS PRN PRN Reason: Insomnia Last Admin: 09/30/17 23:10 Dose: 5 mg - Labs Labs: 09/28/17 06:55 09/28/17 06:55 - Constitutional Appears: Well - Head Exam Head Exam: ATRAUMATIC, NORMAL INSPECTION, NORMOCEPHALIC - Eye Exam Eye Exam: EOMI, Normal appearance, PERRL Pupil Exam: NORMAL ACCOMODATION, PERRL - ENT Exam ENT Exam: Mucous Membranes Moist, Normal Exam - Neck Exam Neck Exam: Full ROM, Normal Inspection. absent: Lymphadenopathy - Respiratory Exam Respiratory Exam: Clear to Ausculation Bilateral, NORMAL BREATHING PATTERN - Cardiovascular Exam Cardiovascular Exam: REGULAR RHYTHM, +S1, +S2. absent: Murmur Additional comments: PACEMAKER SITE IS CLEAN AND DRY - GI/Abdominal Exam GI & Abdominal Exam: Soft, Normal Bowel Sounds. absent: Tenderness - Rectal Exam Rectal Exam: NORMAL INSPECTION - Extremities Exam Extremities Exam: Full ROM, Normal Capillary Refill, Normal Inspection. absent : Joint Swelling, Pedal Edema - Back Exam Back Exam: NORMAL INSPECTION - Neurological Exam Neurological Exam: Alert, Awake, CN II-XII Intact, Normal Gait, Oriented x3 - Psychiatric Exam Psychiatric exam: Normal Affect, Normal Mood - Skin Skin Exam: Dry, Intact, Normal Color, Warm Assessment and Plan - Assessment and Plan (Free Text) Assessment: CHF IMPROVED CHRONIC KIDNEY DZ S/P LIVER TRANSPLANT SEPSIS RESOLVED UTI-RESOLVED Plan: CONTINUE CURRENT RX
--- NOTE | 2017-10-01 10:56 | CP.PCM.PN ---
Subjective - Date & Time of Evaluation Date of Evaluation: 10/01/17 Time of Evaluation: 10:54 - Subjective Subjective: patient is receiving physiotherapy he appears to be sitting up comfortably Objective - Vital Signs/Intake and Output Vital Signs (last 24 hours): Temp Pulse Resp BP Pulse Ox 98.1 F 70 20 126/70 100 10/01/17 08:16 10/01/17 08:37 10/01/17 08:16 10/01/17 08:37 10/01/17 08:16 - Medications Medications: Current Medications Alprazolam (Xanax) 0.5 mg PO BID PRN PRN Reason: Anxiety Atorvastatin Calcium (Lipitor) 10 mg PO HS [facility] Last Admin: 09/30/17 23:11 Dose: 10 mg Calcium Acetate (Phoslo) 667 mg PO TID [facility] Last Admin: 10/01/17 08:36 Dose: 667 mg Carvedilol (Coreg) 6.25 mg PO Q12 [facility] Last Admin: 10/01/17 08:37 Dose: 6.25 mg Famotidine (Pepcid) 20 mg PO DAILY [facility] Last Admin: 10/01/17 08:37 Dose: 20 mg Furosemide (Lasix) 40 mg PO DAILY [facility] Last Admin: 10/01/17 08:36 Dose: 40 mg Home Med (Entecavir [Baraclude]) 0.5 mg PO Q48H [facility] Ondansetron HCl (Zofran Tab) 4 mg PO Q6 PRN PRN Reason: Nausea/Vomiting Last Admin: 09/27/17 12:50 Dose: 4 mg Oxycodone/Acetaminophen (Percocet 5/325 Mg Tab) 1 tab PO Q4 PRN PRN Reason: Pain, moderate (4-7) Stop: 10/01/17 12:29 Last Admin: 09/30/17 20:52 Dose: 1 tab Promethazine HCl/Dextromethorphan (Phenergan Dm Syrup) 10 ml PO 0000,0600,1200, 1800 [facility] Last Admin: 10/01/17 06:00 Dose: Not Given Rivaroxaban (Xarelto) 10 mg PO HS [facility] PRN Reason: Protocol Last Admin: 09/30/17 23:14 Dose: 10 mg Tacrolimus (Prograf Cap) 0.5 mg PO Q12 [facility] Last Admin: 10/01/17 08:35 Dose: 0.5 mg Zolpidem Tartrate (Ambien) 5 mg PO HS PRN PRN Reason: Insomnia Last Admin: 09/30/17 23:10 Dose: 5 mg - Labs Labs: 09/28/17 06:55 09/28/17 06:55 - Constitutional Appears: No Acute Distress - ENT Exam ENT Exam: Mucous Membranes Moist - Neck Exam Neck Exam: absent: Lymphadenopathy - Respiratory Exam Respiratory Exam: NORMAL BREATHING PATTERN. absent: Chest Wall Tenderness - Cardiovascular Exam Cardiovascular Exam: absent: Gallop, JVD, Rubs - GI/Abdominal Exam GI & Abdominal Exam: Soft - Extremities Exam Extremities Exam: absent: Calf Tenderness - Back Exam Back Exam: absent: CVA tenderness (L), CVA tenderness (R) - Neurological Exam Neurological Exam: Alert - Psychiatric Exam Psychiatric exam: Normal Affect - Skin Skin Exam: absent: Cyanosis Assessment and Plan (1) Chronic kidney disease, stage IV (severe) Assessment & Plan: patient admitted with acute kidney injury which has been improving superimposed on chronic kidney disease stage IV which has been stable Patient receiving Prograf for liver transplant which to be continue with 0.5 twice a day and repeat Prograf level . continue monitoring kidney function status post liver transplant S/Pt biventricular pacemaker serum tacrolimus level still pending,I spoke to the nursing in the floor to get to serum tacrolimus level, has not been obtained as of yet Status: Acute
[2017-10-01] MEDS: Oxycodone/Acetaminophen 5/325 mg Tab PO PRN ×2 (11:27→20:38)
[2017-10-02] MEDS: Promethazine DM 12.5 mg-30 mg/10 ml Syrup PO SCH ×3 (06:40→17:22)
--- NOTE | 2017-10-02 08:25 | CP.PCM.PN ---
Subjective - Date & Time of Evaluation Date of Evaluation: 10/02/17 Time of Evaluation: 08:25 - Subjective Subjective: NO COMPLAINTS OR DISTRESS Objective - Vital Signs/Intake and Output Vital Signs (last 24 hours): Temp Pulse Resp BP Pulse Ox 97.1 F L 69 20 120/79 96 10/02/17 07:42 10/02/17 07:42 10/02/17 07:42 10/02/17 07:42 10/02/17 07:42 - Medications Medications: Current Medications Alprazolam (Xanax) 0.5 mg PO BID PRN PRN Reason: Anxiety Atorvastatin Calcium (Lipitor) 10 mg PO HS [facility] Last Admin: 10/01/17 22:28 Dose: 10 mg Calcium Acetate (Phoslo) 667 mg PO TID [facility] Last Admin: 10/01/17 17:09 Dose: 667 mg Carvedilol (Coreg) 6.25 mg PO Q12 [facility] Last Admin: 10/01/17 22:28 Dose: 6.25 mg Famotidine (Pepcid) 20 mg PO DAILY [facility] Last Admin: 10/01/17 08:37 Dose: 20 mg Furosemide (Lasix) 40 mg PO DAILY [facility] Last Admin: 10/01/17 08:36 Dose: 40 mg Home Med (Entecavir [Baraclude]) 0.5 mg PO QOTHERDAY@2200 [facility] PRN Reason: Protocol Ondansetron HCl (Zofran Tab) 4 mg PO Q6 PRN PRN Reason: Nausea/Vomiting Last Admin: 09/27/17 12:50 Dose: 4 mg Oxycodone/Acetaminophen (Percocet 5/325 Mg Tab) 1 tab PO Q4 PRN PRN Reason: Pain, moderate (4-7) Stop: 10/04/17 20:21 Last Admin: 10/01/17 20:38 Dose: 1 tab Promethazine HCl/Dextromethorphan (Phenergan Dm Syrup) 10 ml PO 0000,0600,1200, 1800 [facility] Last Admin: 10/02/17 06:40 Dose: 10 ml Rivaroxaban (Xarelto) 10 mg PO HS [facility] PRN Reason: Protocol Last Admin: 10/01/17 22:29 Dose: 10 mg Tacrolimus (Prograf Cap) 0.5 mg PO Q12 [facility] Last Admin: 10/01/17 22:28 Dose: 0.5 mg Zolpidem Tartrate (Ambien) 5 mg PO HS PRN PRN Reason: Insomnia Last Admin: 10/01/17 22:27 Dose: 5 mg - Labs Labs: 09/28/17 06:55 09/28/17 06:55 - Head Exam Head Exam: ATRAUMATIC, NORMAL INSPECTION, NORMOCEPHALIC - Eye Exam Eye Exam: EOMI, Normal appearance, PERRL Pupil Exam: NORMAL ACCOMODATION, PERRL - ENT Exam ENT Exam: Mucous Membranes Moist, Normal Exam - Neck Exam Neck Exam: Full ROM, Normal Inspection. absent: Lymphadenopathy - Respiratory Exam Respiratory Exam: Clear to Ausculation Bilateral, NORMAL BREATHING PATTERN Additional comments: FEW RALES - Cardiovascular Exam Cardiovascular Exam: REGULAR RHYTHM, +S1, +S2. absent: Murmur Additional comments: PACEMAKER SITE CLEAN AND DRY - GI/Abdominal Exam GI & Abdominal Exam: Soft, Normal Bowel Sounds. absent: Tenderness - Rectal Exam Rectal Exam: NORMAL INSPECTION - Extremities Exam Extremities Exam: Full ROM, Normal Capillary Refill, Normal Inspection. absent : Joint Swelling, Pedal Edema - Back Exam Back Exam: NORMAL INSPECTION - Neurological Exam Neurological Exam: Alert, Awake, CN II-XII Intact, Normal Gait, Oriented x3 - Psychiatric Exam Psychiatric exam: Normal Affect, Normal Mood - Skin Skin Exam: Dry, Intact, Normal Color, Warm Assessment and Plan - Assessment and Plan (Free Text) Assessment: CHF--STABLE S/P PACEMAKER PLACEMENT S/P LIVER TRANSPLANT Plan: CONTINUE CURRENT RX BATCH UNLOADER FOR D/C PLANNING
--- NOTE | 2017-10-02 12:07 | CP.PCM.PN ---
Subjective - Date & Time of Evaluation Date of Evaluation: 10/02/17 Time of Evaluation: 12:06 - Subjective Subjective: patient awake and conscious no new events reported Objective - Vital Signs/Intake and Output Vital Signs (last 24 hours): Temp Pulse Resp BP Pulse Ox 97.1 F L 69 20 120/79 96 10/02/17 07:42 10/02/17 08:42 10/02/17 07:42 10/02/17 08:42 10/02/17 07:42 - Medications Medications: Current Medications Alprazolam (Xanax) 0.5 mg PO BID PRN PRN Reason: Anxiety Atorvastatin Calcium (Lipitor) 10 mg PO HS [facility] Last Admin: 10/01/17 22:28 Dose: 10 mg Calcium Acetate (Phoslo) 667 mg PO TID [facility] Last Admin: 10/02/17 08:42 Dose: 667 mg Carvedilol (Coreg) 6.25 mg PO Q12 [facility] Last Admin: 10/02/17 08:42 Dose: 6.25 mg Famotidine (Pepcid) 20 mg PO DAILY [facility] Last Admin: 10/02/17 08:43 Dose: 20 mg Furosemide (Lasix) 40 mg PO DAILY [facility] Last Admin: 10/02/17 08:42 Dose: 40 mg Home Med (Entecavir [Baraclude]) 0.5 mg PO QOTHERDAY@2200 [facility] PRN Reason: Protocol Ondansetron HCl (Zofran Tab) 4 mg PO Q6 PRN PRN Reason: Nausea/Vomiting Last Admin: 09/27/17 12:50 Dose: 4 mg Oxycodone/Acetaminophen (Percocet 5/325 Mg Tab) 1 tab PO Q4 PRN PRN Reason: Pain, moderate (4-7) Stop: 10/04/17 20:21 Last Admin: 10/01/17 20:38 Dose: 1 tab Promethazine HCl/Dextromethorphan (Phenergan Dm Syrup) 10 ml PO 0000,0600,1200, 1800 [facility] Last Admin: 10/02/17 06:40 Dose: 10 ml Rivaroxaban (Xarelto) 10 mg PO HS [facility] PRN Reason: Protocol Last Admin: 10/01/17 22:29 Dose: 10 mg Tacrolimus (Prograf Cap) 1 mg PO DAILY [facility] Zolpidem Tartrate (Ambien) 5 mg PO HS PRN PRN Reason: Insomnia Last Admin: 10/01/17 22:27 Dose: 5 mg - Labs Labs: 09/28/17 06:55 09/28/17 06:55 - Constitutional Appears: No Acute Distress - ENT Exam ENT Exam: Mucous Membranes Moist - Neck Exam Neck Exam: absent: Lymphadenopathy - Respiratory Exam Respiratory Exam: absent: Chest Wall Tenderness - Cardiovascular Exam Cardiovascular Exam: absent: JVD, Rubs - GI/Abdominal Exam GI & Abdominal Exam: Soft, Normal Bowel Sounds - Extremities Exam Extremities Exam: absent: Calf Tenderness - Back Exam Back Exam: absent: CVA tenderness (L), CVA tenderness (R) - Neurological Exam Neurological Exam: Alert - Psychiatric Exam Psychiatric exam: Normal Affect - Skin Skin Exam: absent: Cyanosis Assessment and Plan (1) Chronic kidney disease, stage IV (severe) Assessment & Plan: patient admitted with acute kidney injury which has been improving superimposed on chronic kidney disease stage IV which has been stable Patient receiving Prograf for liver transplant which to be continue with 0.5 twice a day and repeat Prograf level . continue monitoring kidney function status post liver transplant S/Pt biventricular pacemaker serum tacrolimus level 2.6 below therapeutic level therefore increase tacrolimus from 0.5 mg in the morning to 1 mg in the morning and keep 0.5 mg p.m. Status: Acute
[2017-10-02] MEDS ORDERED: ENTECAVIR 0.5 MG PO SCH (22:00)
[2017-10-03] MEDS: Promethazine DM 12.5 mg-30 mg/10 ml Syrup PO SCH ×4 (00:30→17:53)
[2017-10-03] MEDS: Oxycodone/Acetaminophen 5/325 mg Tab PO PRN ×3 (09:50→21:39)
--- NOTE | 2017-10-03 10:05 | CP.PCM.PN ---
Subjective - Date & Time of Evaluation Date of Evaluation: 10/03/17 Time of Evaluation: 10:04 - Subjective Subjective: Patient receiving physiotherapy No new events reported Objective - Vital Signs/Intake and Output Vital Signs (last 24 hours): Temp Pulse Resp BP Pulse Ox 97.2 F L 78 20 120/74 98 10/03/17 09:26 10/03/17 09:45 10/03/17 09:26 10/03/17 09:45 10/03/17 09:26 - Medications Medications: Current Medications Alprazolam (Xanax) 0.5 mg PO BID PRN PRN Reason: Anxiety Atorvastatin Calcium (Lipitor) 10 mg PO HS [facility] Last Admin: 10/02/17 21:43 Dose: 10 mg Calcium Acetate (Phoslo) 667 mg PO TID [facility] Last Admin: 10/03/17 09:44 Dose: 667 mg Carvedilol (Coreg) 6.25 mg PO Q12 [facility] Last Admin: 10/03/17 09:45 Dose: 6.25 mg Famotidine (Pepcid) 20 mg PO DAILY [facility] Last Admin: 10/03/17 09:44 Dose: 20 mg Furosemide (Lasix) 40 mg PO DAILY [facility] Last Admin: 10/03/17 09:45 Dose: 40 mg Home Med (Entecavir [Baraclude]) 0.5 mg PO QOTHERDAY@2200 [facility] PRN Reason: Protocol Ondansetron HCl (Zofran Tab) 4 mg PO Q6 PRN PRN Reason: Nausea/Vomiting Last Admin: 09/27/17 12:50 Dose: 4 mg Oxycodone/Acetaminophen (Percocet 5/325 Mg Tab) 1 tab PO Q4 PRN PRN Reason: Pain, moderate (4-7) Stop: 10/04/17 20:21 Last Admin: 10/03/17 09:50 Dose: 1 tab Promethazine HCl/Dextromethorphan (Phenergan Dm Syrup) 10 ml PO 0000,0600,1200, 1800 [facility] Last Admin: 10/03/17 06:23 Dose: 10 ml Rivaroxaban (Xarelto) 10 mg PO HS [facility] PRN Reason: Protocol Last Admin: 10/02/17 21:42 Dose: 10 mg Tacrolimus (Prograf Cap) 1 mg PO DAILY [facility] Last Admin: 10/03/17 09:45 Dose: 1 mg Tacrolimus (Prograf Cap) 0.5 mg PO DAILY@1700 [facility] Last Admin: 10/02/17 17:22 Dose: 0.5 mg Zolpidem Tartrate (Ambien) 5 mg PO HS PRN PRN Reason: Insomnia Last Admin: 10/02/17 22:09 Dose: 5 mg - Labs Labs: 09/28/17 06:55 09/28/17 06:55 - Constitutional Appears: No Acute Distress - ENT Exam ENT Exam: Mucous Membranes Moist - Neck Exam Neck Exam: absent: Lymphadenopathy - Respiratory Exam Respiratory Exam: absent: Chest Wall Tenderness - Cardiovascular Exam Cardiovascular Exam: absent: JVD, Rubs - GI/Abdominal Exam GI & Abdominal Exam: Soft, Normal Bowel Sounds - Extremities Exam Extremities Exam: absent: Calf Tenderness - Back Exam Back Exam: absent: CVA tenderness (L), CVA tenderness (R) - Neurological Exam Neurological Exam: Alert Assessment and Plan (1) Chronic kidney disease, stage IV (severe) Assessment & Plan: patient admitted with acute kidney injury which has been improving superimposed on chronic kidney disease stage IV which has been stable Patient receiving Prograf for liver transplant which to be continue with 0.5 twice a day and repeat Prograf level . continue monitoring kidney function status post liver transplant S/Pt biventricular pacemaker serum tacrolimus level 2.6 below therapeutic level therefore increase tacrolimus from 0.5 mg in the morning to 1 mg in the morning and keep 0.5 mg p.m. I requested from the patient to give me the name and the phone number of the liver transplant in [place] so we can call them about the Prograf level 2.6 and blood suggestion they have Status: Acute
--- NOTE | 2017-10-03 10:35 | CP.PCM.PN ---
Subjective - Date & Time of Evaluation Date of Evaluation: 10/03/17 Time of Evaluation: 10:35 - Subjective Subjective: no new complaints/distress no new clinical findings scheduled for discharge this week meds reconciled pt to follow up with his private physicians in [facility] Objective - Vital Signs/Intake and Output Vital Signs (last 24 hours): Temp Pulse Resp BP Pulse Ox 97.2 F L 78 20 120/74 98 10/03/17 09:26 10/03/17 09:45 10/03/17 09:26 10/03/17 09:45 10/03/17 09:26 - Medications Medications: Current Medications Alprazolam (Xanax) 0.5 mg PO BID PRN PRN Reason: Anxiety Atorvastatin Calcium (Lipitor) 10 mg PO HS [facility] Last Admin: 10/02/17 21:43 Dose: 10 mg Calcium Acetate (Phoslo) 667 mg PO TID [facility] Last Admin: 10/03/17 09:44 Dose: 667 mg Carvedilol (Coreg) 6.25 mg PO Q12 [facility] Last Admin: 10/03/17 09:45 Dose: 6.25 mg Famotidine (Pepcid) 20 mg PO DAILY [facility] Last Admin: 10/03/17 09:44 Dose: 20 mg Furosemide (Lasix) 40 mg PO DAILY [facility] Last Admin: 10/03/17 09:45 Dose: 40 mg Home Med (Entecavir [Baraclude]) 0.5 mg PO QOTHERDAY@2200 [facility] PRN Reason: Protocol Oxycodone/Acetaminophen (Percocet 5/325 Mg Tab) 1 tab PO Q4 PRN PRN Reason: Pain, moderate (4-7) Stop: 10/04/17 20:21 Last Admin: 10/03/17 09:50 Dose: 1 tab Promethazine HCl/Dextromethorphan (Phenergan Dm Syrup) 10 ml PO 0000,0600,1200, 1800 [facility] Last Admin: 10/03/17 06:23 Dose: 10 ml Rivaroxaban (Xarelto) 10 mg PO HS [facility] PRN Reason: Protocol Last Admin: 10/02/17 21:42 Dose: 10 mg Tacrolimus (Prograf Cap) 1 mg PO DAILY [facility] Last Admin: 10/03/17 09:45 Dose: 1 mg Tacrolimus (Prograf Cap) 0.5 mg PO DAILY@1700 [facility] Last Admin: 10/02/17 17:22 Dose: 0.5 mg Zolpidem Tartrate (Ambien) 5 mg PO HS PRN PRN Reason: Insomnia Last Admin: 10/02/17 22:09 Dose: 5 mg - Labs Labs: 09/28/17 06:55 09/28/17 06:55
[2017-10-04] MEDS: Promethazine DM 12.5 mg-30 mg/10 ml Syrup PO SCH ×3 (06:17→18:09)
--- NOTE | 2017-10-04 08:28 | RAD ---
Date of service: 10/03/2017 HISTORY: desaturation COMPARISON: 09/16/2027. FINDINGS: LUNGS: Again seen is moderate pulmonary venous congestion. PLEURA: Small right pleural effusion, no pneumothorax apparent. The left costophrenic angle has been excluded from the film. CARDIOVASCULAR: Persistent severe cardiomegaly. Stable position of left-sided permanent pacemaker. OSSEOUS STRUCTURES: No significant abnormalities. VISUALIZED UPPER ABDOMEN: Normal. OTHER FINDINGS: None. IMPRESSION: No significant interval change in mild congestive heart failure
--- NOTE | 2017-10-04 09:24 | CP.PCM.PN ---
Subjective - Date & Time of Evaluation Date of Evaluation: 10/04/17 Time of Evaluation: 09:27 - Subjective Subjective: C/O COUGH AND ?COLD HAD LOW O2 SAT YESTERDAY BUT IT IMPROVED WITH REST Objective - Vital Signs/Intake and Output Vital Signs (last 24 hours): Temp Pulse Resp BP Pulse Ox 97.9 F 60 20 128/69 97 10/04/17 08:10 10/04/17 08:50 10/04/17 08:10 10/04/17 08:50 10/04/17 08:10 - Medications Medications: Current Medications Alprazolam (Xanax) 0.5 mg PO BID PRN PRN Reason: Anxiety Atorvastatin Calcium (Lipitor) 10 mg PO HS [facility] Last Admin: 10/03/17 21:32 Dose: 10 mg Calcium Acetate (Phoslo) 667 mg PO TID [facility] Last Admin: 10/04/17 08:51 Dose: 667 mg Carvedilol (Coreg) 6.25 mg PO Q12 [facility] Last Admin: 10/04/17 08:50 Dose: 6.25 mg Famotidine (Pepcid) 20 mg PO DAILY [facility] Last Admin: 10/04/17 08:51 Dose: 20 mg Furosemide (Lasix) 40 mg PO DAILY [facility] Last Admin: 10/04/17 08:50 Dose: 40 mg Home Med (Entecavir [Baraclude]) 0.5 mg PO QOTHERDAY@2200 [facility] PRN Reason: Protocol Oxycodone/Acetaminophen (Percocet 5/325 Mg Tab) 1 tab PO Q4 PRN PRN Reason: Pain, moderate (4-7) Stop: 10/04/17 20:21 Last Admin: 10/03/17 21:39 Dose: 1 tab Promethazine HCl/Dextromethorphan (Phenergan Dm Syrup) 10 ml PO 0000,0600,1200, 1800 [facility] Last Admin: 10/04/17 06:17 Dose: Not Given Rivaroxaban (Xarelto) 10 mg PO [facility] PRN Reason: Protocol Last Admin: 10/03/17 21:40 Dose: 10 mg Tacrolimus (Prograf Cap) 1 mg PO DAILY [facility] Last Admin: 10/04/17 08:51 Dose: 1 mg Tacrolimus (Prograf Cap) 0.5 mg PO DAILY@1700 [facility] Last Admin: 10/03/17 17:52 Dose: 0.5 mg Zolpidem Tartrate (Ambien) 5 mg PO HS PRN PRN Reason: Insomnia Last Admin: 10/03/17 23:36 Dose: 5 mg - Labs Labs: 09/28/17 06:55 09/28/17 06:55 - Constitutional Appears: Well - Head Exam Head Exam: ATRAUMATIC, NORMAL INSPECTION, NORMOCEPHALIC - Eye Exam Eye Exam: EOMI, Normal appearance, PERRL Pupil Exam: NORMAL ACCOMODATION, PERRL - ENT Exam ENT Exam: Mucous Membranes Moist, Normal Exam - Neck Exam Neck Exam: Full ROM, Normal Inspection. absent: Lymphadenopathy - Respiratory Exam Respiratory Exam: Rales, NORMAL BREATHING PATTERN - Cardiovascular Exam Cardiovascular Exam: REGULAR RHYTHM, +S1, +S2. absent: Murmur - GI/Abdominal Exam GI & Abdominal Exam: Soft, Normal Bowel Sounds. absent: Tenderness - Rectal Exam Rectal Exam: NORMAL INSPECTION - Extremities Exam Extremities Exam: Full ROM, Normal Capillary Refill, Normal Inspection. absent : Joint Swelling, Pedal Edema - Back Exam Back Exam: NORMAL INSPECTION - Neurological Exam Neurological Exam: Alert, Awake, CN II-XII Intact, Normal Gait, Oriented x3 - Psychiatric Exam Psychiatric exam: Normal Affect, Normal Mood - Skin Skin Exam: Dry, Intact, Normal Color, Warm Assessment and Plan - Assessment and Plan (Free Text) Assessment: CHF-IMPROVED ARRYTHMIAS MILD URI Plan: ZITHROMAX CONTINUE CURRENT RX D/C HOME IN AM
--- NOTE | 2017-10-04 10:14 | CP.PCM.PN ---
Subjective - Date & Time of Evaluation Date of Evaluation: 10/04/17 Time of Evaluation: 10:13 - Subjective Subjective: patient is awake and conscious Appears to be stable receiving physiotherapy no nausea no vomiting Objective - Vital Signs/Intake and Output Vital Signs (last 24 hours): Temp Pulse Resp BP Pulse Ox 97.9 F 60 20 128/69 97 10/04/17 08:10 10/04/17 08:50 10/04/17 08:10 10/04/17 08:50 10/04/17 08:10 - Medications Medications: Current Medications Alprazolam (Xanax) 0.5 mg PO BID PRN PRN Reason: Anxiety Atorvastatin Calcium (Lipitor) 10 mg PO HS [facility] Last Admin: 10/03/17 21:32 Dose: 10 mg Azithromycin (Zithromax) 250 mg PO DAILY [facility] PRN Reason: Protocol Stop: 10/07/17 09:01 Calcium Acetate (Phoslo) 667 mg PO TID [facility] Last Admin: 10/04/17 08:51 Dose: 667 mg Carvedilol (Coreg) 6.25 mg PO Q12 [facility] Last Admin: 10/04/17 08:50 Dose: 6.25 mg Famotidine (Pepcid) 20 mg PO DAILY [facility] Last Admin: 10/04/17 08:51 Dose: 20 mg Furosemide (Lasix) 40 mg PO DAILY [facility] Last Admin: 10/04/17 08:50 Dose: 40 mg Home Med (Entecavir [Baraclude]) 0.5 mg PO QOTHERDAY@2200 [facility] PRN Reason: Protocol Oxycodone/Acetaminophen (Percocet 5/325 Mg Tab) 1 tab PO Q4 PRN PRN Reason: Pain, moderate (4-7) Stop: 10/04/17 20:21 Last Admin: 10/03/17 21:39 Dose: 1 tab Promethazine HCl/Dextromethorphan (Phenergan Dm Syrup) 10 ml PO 0000,0600,1200, 1800 [facility] Last Admin: 10/04/17 06:17 Dose: Not Given Rivaroxaban (Xarelto) 10 mg PO HS [facility] PRN Reason: Protocol Last Admin: 10/03/17 21:40 Dose: 10 mg Tacrolimus (Prograf Cap) 1 mg PO DAILY [facility] Last Admin: 10/04/17 08:51 Dose: 1 mg Tacrolimus (Prograf Cap) 0.5 mg PO DAILY@1700 [facility] Last Admin: 10/03/17 17:52 Dose: 0.5 mg Zolpidem Tartrate (Ambien) 5 mg PO HS PRN PRN Reason: Insomnia Last Admin: 10/03/17 23:36 Dose: 5 mg - Labs Labs: 09/28/17 06:55 09/28/17 06:55 - Constitutional Appears: No Acute Distress - Eye Exam Eye Exam: Conjunctival injection - ENT Exam ENT Exam: Mucous Membranes Moist - Neck Exam Neck Exam: absent: Lymphadenopathy - Respiratory Exam Respiratory Exam: NORMAL BREATHING PATTERN. absent: Chest Wall Tenderness - Cardiovascular Exam Cardiovascular Exam: absent: Gallop, JVD, Rubs - Extremities Exam Extremities Exam: absent: Calf Tenderness - Back Exam Back Exam: absent: CVA tenderness (L), CVA tenderness (R) - Neurological Exam Neurological Exam: Alert - Psychiatric Exam Psychiatric exam: Normal Affect - Skin Skin Exam: absent: Cyanosis Assessment and Plan (1) Chronic kidney disease, stage IV (severe) Assessment & Plan: patient admitted with acute kidney injury which has been improving superimposed on chronic kidney disease stage IV which has been stable Patient receiving Prograf for liver transplant which to be continue with 0.5 twice a day and repeat Prograf level . continue monitoring kidney function status post liver transplant S/Pt biventricular pacemaker serum tacrolimus level 2.6 below therapeutic level therefore increase tacrolimus from 0.5 mg in the morning to 1 mg in the morning and keep 0.5 mg p.m. I requested from the patient to give me the name and the phone number of the liver transplant in [place] so we can call them about the Prograf level 2.6 and suggestion they have patient receiving physiotherapy Status: Acute (2) Chronic kidney disease, stage V Status: Acute
[2017-10-04 21:02] VITALS: PULSE 72
[2017-10-05] MEDS: Promethazine DM 12.5 mg-30 mg/10 ml Syrup PO SCH ×3 (01:16→12:32)
[2017-10-05] MEDS: Oxycodone/Acetaminophen 5/325 mg Tab PO PRN ×2 (05:58→10:15)
[2017-10-05 08:31] VITALS: BP 125/77; TEMP 97.2; O2SAT 98
--- NOTE | 2017-10-05 11:19 | CP.PCM.DIS ---
Provider - Provider Date of Admission: 09/24/17 21:52 Attending physician: Grey Arriaga MD Time Spent in preparation of Discharge (in minutes): 35 Diagnosis - Discharge Diagnosis (1) AV node dysfunction Status: Acute (2) Acute on chronic systolic (congestive) heart failure Status: Acute (3) Chronic atrial fibrillation Status: Acute (4) Chronic kidney disease, stage IV (severe) Status: Acute (5) Enlarged RV (right ventricle) Status: Acute (6) Generalized muscle weakness Status: Acute (7) Liver transplant disorder Status: Acute (8) S/P placement of cardiac pacemaker Status: Acute Hospital Course - Lab Results Lab Results: Most Recent Lab Values WBC 5.0 K/uL (4.8-10.8) 09/28/17 06:55 RBC 4.00 Mil/uL (4.40-5.90) L 09/28/17 06:55 Hgb 11.4 g/dL (12.0-18.0) L 09/28/17 06:55 Hct 33.9 % (35.0-51.0) L 09/28/17 06:55 MCV 84.7 fl (80.0-94.0) 09/28/17 06:55 MCH 28.4 pg (27.0-31.0) 09/28/17 06:55 MCHC 33.5 g/dL (33.0-37.0) 09/28/17 06:55 RDW 21.7 % (11.5-14.5) H 09/28/17 06:55 Plt Count 146 K/uL (130-400) 09/28/17 06:55 MPV 8.0 fl (7.2-11.7) 09/28/17 06:55 Neut % (Auto) 55.7 % (50.0-75.0) 09/28/17 06:55 Lymph % (Auto) 21.3 % (20.0-40.0) 09/28/17 06:55 Gordon % (Auto) 14.9 % (0.0-10.0) H 09/28/17 06:55 Eos % (Auto) 7.0 % (0.0-4.0) H 09/28/17 06:55 Baso % (Auto) 1.1 % (0.0-2.0) 09/28/17 06:55 Neut # (Auto) 2.8 K/uL (1.8-7.0) 09/28/17 06:55 Lymph # (Auto) 1.1 K/uL (1.0-4.3) 09/28/17 06:55 Gordon # (Auto) 0.7 K/uL (0.0-0.8) 09/28/17 06:55 Eos # (Auto) 0.4 K/uL (0.0-0.7) 09/28/17 06:55 Baso # (Auto) 0.1 K/uL (0.0-0.2) 09/28/17 06:55 Sodium 138 mmol/l (132-148) 09/28/17 06:55 Potassium 4.8 MMOL/L (3.6-5.0) 09/28/17 06:55 Chloride 105 mmol/L (98-107) 09/28/17 06:55 Carbon Dioxide 23 mmol/L (22-30) 09/28/17 06:55 Anion Gap 15 (10-20) 09/28/17 06:55 BUN 32 mg/dl (9-20) H 09/28/17 06:55 Creatinine 2.4 mg/dl (0.8-1.5) H 09/28/17 06:55 Est GFR ( Amer) 33 09/28/17 06:55 Est GFR (Non-Af Amer) 27 09/28/17 06:55 Random Glucose 83 mg/dL (75-110) 09/28/17 06:55 Calcium 8.9 mg/dL (8.4-10.2) 09/28/17 06:55 Magnesium 1.9 MG/DL (1.6-2.3) 09/28/17 06:55 Tacrolimus (LC/MS/MS) 3.3 mcg/L (5.0-20.0) L 10/02/17 05:40 - Hospital Course Hospital Course: clinically improved sob improved no chest pains cough less Discharge Exam - Head Exam Head Exam: ATRAUMATIC, NORMAL INSPECTION, NORMOCEPHALIC - Eye Exam Eye Exam: EOMI, Normal appearance, PERRL Pupil Exam: NORMAL ACCOMODATION, PERRL - Respiratory Exam Respiratory Exam: NORMAL BREATHING PATTERN - Cardiovascular Exam Cardiovascular Exam: REGULAR RHYTHM Additional comments: pacemaker site clean and dry - GI/Abdominal Exam GI & Abdominal Exam: Normal Bowel Sounds - Rectal Exam Rectal Exam: NORMAL INSPECTION - Neurological Exam Neurological exam: Alert, CN II-XII Intact, Normal Gait, Oriented x3, Reflexes Normal - Psychiatric Exam Psychiatric exam: Normal Affect, Normal Mood - Skin Skin Exam: Dry, Intact, Normal Color, Warm Discharge Plan - Follow Up Plan Condition: GOOD Disposition: HOME/ ROUTINE Patient education suggested?: Yes Additional Instructions: discharge today follow up with primary physician in [place]
== END 2017-10-05 14:15 | disposition home health service (06) | DRG 949 ==
LOC: H.TCU 21:52
PROVIDERS: ADMIT Internal Medicine Pulmonary Disease; ATTEND Internal Medicine Pulmonary Disease
PROC: F07Z9FZ Gait Training/Functional Ambulation Treatment using Assistive, Adaptive, Supportive or Protective Equipment (ICD-10-PCS; principal; 2017-09-24)
PROC: F08Z4FZ Home Management Treatment using Assistive, Adaptive, Supportive or Protective Equipment (ICD-10-PCS; 2017-09-24)
PROC: F07M6FZ Therapeutic Exercise Treatment of Musculoskeletal System - Whole Body using Assistive, Adaptive, Supportive or Protective Equipment (ICD-10-PCS; 2017-09-25)
DX: Z48.812 Encounter for surgical aftercare following surgery on the circulatory system (principal); I50.23 Acute on chronic systolic (congestive) heart failure; Z95.0 Presence of cardiac pacemaker; N18.4 Chronic kidney disease, stage 4 (severe); I13.0 Hypertensive heart and chronic kidney disease with heart failure and stage 1 through stage 4 chronic kidney disease, or unspecified chronic kidney disease; Z94.4 Liver transplant status; I25.10 Atherosclerotic heart disease of native coronary artery without angina pectoris; I48.2 Chronic atrial fibrillation; J06.9 Acute upper respiratory infection, unspecified; R53.81 Other malaise; E78.00 Pure hypercholesterolemia, unspecified; F41.9 Anxiety disorder, unspecified; H91.8X2 Other specified hearing loss, left ear; Z87.440 Personal history of urinary (tract) infections; Z86.711 Personal history of pulmonary embolism; Z87.891 Personal history of nicotine dependence; Z86.19 Personal history of other infectious and parasitic diseases

== ENCOUNTER 2018-01-07 13:46 | Inpatient (IN) | payer MEDICARE ==
[2018-01-07 13:46] VITALS: BMI 30.2
[2018-01-07] MEDS ORDERED: Albuterol-Ipratrop 3 mg / 0.5 (3 ml) UD ONE (14:06)
[2018-01-07] MEDS ORDERED: Albuterol-Ipratrop 3 mg / 0.5 (3 ml) UD INH STA (14:47)
[2018-01-07 15:06] LABS: VENOUS BLOOD GAS PCO2 40 mmHg (40-60); VENOUS BLOOD GAS PO2 40 mm/Hg (30-55)
[2018-01-07 15:06] LABS: BASO # 0.1 K/uL (0.0-0.2); BASO % 0.6 % (0.0-2.0); EOS # 0.2 K/uL (0.0-0.7); EOS % 1.8 % (0.0-4.0); HEMOGLOBIN 13.4 g/dL (12.0-18.0); LYMPH # 0.9 K/uL (1.0-4.3); LYMPH % 9.8 % (20.0-40.0); MEAN CELL VOLUME 93.4 fl (80.0-94.0); MEAN CORPUSCULAR HEMOGLOBIN 29.5 pg (27.0-31.0); MEAN CORPUSCULAR HGB CONC 31.6 g/dL (33.0-37.0); MEAN PLATELET VOLUME 9.9 fl (7.2-11.7); MONO # 0.6 K/uL (0.0-0.8); MONO % 5.9 % (0.0-10.0); NEUT # 7.7 K/uL (1.8-7.0); NEUT % 81.9 % (50.0-75.0); NRBC % 0.2 % (0.0-0.0); PLATELET COUNT 143 K/uL (130-400); RBC 4.56 Mil/uL (4.40-5.90); RED CELL DISTRIBUTION WIDTH 15.4 % (11.5-14.5)
[2018-01-07 15:17] LABS: WHITE BLOOD COUNT 9.4 K/uL (4.8-10.8)
[2018-01-07 15:59] LABS: INR 1.3; PROTHROMBIN TIME 15.2 Seconds (9.8-13.1)
--- NOTE | 2018-01-07 15:59 | ED PDOC ---
HPI: General Adult Time Seen by Provider: 01/07/18 14:36 Chief Complaint (Provider): Shortness of breath History Per: Patient History/Exam Limitations: no limitations Onset/Duration Of Symptoms: Days (x2 weeks) Current Symptoms Are (Timing): Still Present Additional Complaint(s): 62 year old male with a history of hypertension, CHF, and ejection fraction in his 30s presents to the ED with shortness of breath and dry cough for 2 weeks. Patient reports shortness of breath is intermittent but worse with exertion. He denies fever, chest pain, leg swelling, or weight gain. Patient has been losing weight since symptoms started. He is on 4 liters of oxygen at home, but his oxygen was low and in the 80s intermittently. Patient is also complaining of throat pain and decreased PO intake of fluids and solids for two weeks. He sees his PMD once a year, he sees his machine sneller here, and the last time he was admitted, he was under the care of Dr. Arriaga. Patient has also been admitted for CHF at [facility] in [place]. He also had a pacemaker placed in October 2017. PMD: Dr. Arriaga Tribal Delegate: Dr. Allen Past Medical History Reviewed: Historical Data, Nursing Documentation, Vital Signs Vital Signs: Last Vital Signs Temp 97.5 F L 01/07/18 15:50 Pulse 69 01/07/18 15:50 Resp 18 01/07/18 15:50 BP 146/93 H 01/07/18 15:50 Pulse Ox 93 L 01/07/18 15:50 - Medical History PMH: Cardia Arrhythmia, CHF, Deep Vein Thrombosis, HTN, Hypercholesterolemia, Pulmonary Embolism, Chronic Kidney Disease - Surgical History Surgical History: Pacemaker Other surgeries: Liver transplant - Family History Family History: States: Unknown Family Hx - Home Medications Home Medications: Ambulatory Orders Medication Instructions Recorded RX: Alprazolam [Xanax] 0.5 mg PO BID PRN 09/12/17 RX: Atorvastatin [Lipitor] 10 mg PO DAILY 09/12/17 RX: Tacrolimus [Prograf] 0.5 mg PO HS 09/12/17 RX: Zolpidem [Ambien] 5 mg PO HS PRN 09/12/17 RX: Calcium Acetate [Phoslo] 667 mg PO TID #90 tab 10/05/17 RX: Carvedilol [Coreg] 6.25 mg PO Q12 #60 tab 10/05/17 RX: Famotidine [Pepcid] 20 mg PO DAILY #60 tab 10/05/17 RX: Furosemide [Lasix] 40 mg PO DAILY #30 tab 10/05/17 RX: oxyCODONE/Acetaminophen 1 tab PO Q4 PRN #30 tab 10/05/17 [Percocet 5/325 mg Tab] RX: Rivaroxaban [Xarelto] 10 mg PO DAILY 01/07/18 Tacrolimus [Prograf Cap] 1 mg PO HS 01/07/18 Entecavir [Baraclude] 0.5 mg PO Q48H #14 01/08/18 - Allergies Allergies/Adverse Reactions: Allergies Allergy/AdvReac Type Severity Reaction Status Date / Time No Known Allergies Allergy Verified 01/07/18 13:48 Review of Systems ROS Statement: Except As Marked, All Systems Reviewed And Found Negative Constitutional: Positive for: Weight loss. Negative for: Fever ENT: Positive for: Throat Pain Cardiovascular: Negative for: Chest Pain Respiratory: Positive for: Cough (dry), Shortness of Breath Musculoskeletal: Positive for: Other (no leg swelling) Physical Exam - Reviewed Nursing Documentation Reviewed: Yes Vital Signs Reviewed: Yes - Physical Exam Appears: Positive for: No Acute Distress (comfortable) Head Exam: Positive for: ATRAUMATIC, NORMOCEPHALIC Eye Exam: Positive for: Normal appearance, EOMI, PERRL ENT: Positive for: Normal ENT Inspection Neck: Positive for: Normal, Painless ROM, Supple Cardiovascular/Chest: Positive for: Regular Rate, Rhythm. Negative for: Murmur Respiratory: Positive for: Decreased Breath Sounds (at base bilaterally), Other (tachypneic). Negative for: Wheezing Gastrointestinal/Abdominal: Positive for: Normal Exam, Soft. Negative for: Tenderness Extremity: Positive for: Normal ROM. Negative for: Pedal Edema, Deformity Neurologic/Psych: Positive for: Alert, Oriented (x3) - Laboratory Results Result Diagrams: 01/08/18 04:20 01/08/18 04:20 - ECG ECG: Positive for: Interpreted By Me ECG Rhythm: Positive for: Normal ST Segment. Negative for: Normal QRS Interpretation Of ECG: ventricular paced rhythm Rate: 71 O2 Sat by Pulse Oximetry: 93 (RA) Pulse Ox Interpretation: Normal - Critical Care Total Time (In Min): 60 Documented Critical Care: Time excludes all time spent performint seperately billable procedures Medical Decision Making Medical Decision Making: Time: 1447 Initial Impression: Shortness of breath with additional complaints Differential diagnoses include but are not limited to: CHF exacerabation, pneumonia, and dehydration Initial Plan: --VBG --EKG --BNP --BMP --Troponin --CBC with differentials --PTT --PT --CXR --Duoneb 3 ml INH --Blood culture --Peak flow pre/post treatment --Rapid strep Time: 1656 --Discussed with patient the need for BIPAP to relieve his respiratory distress, but he refuses the BIPAP so will place him on high flow oxygen. Time: 1705 --Case discussed with Dr. Arriaga, will admit to inpatient telemetry --Case discussed with Dr. Allen, machine sneller, as per patients request, but Dr. Allen said he is not his machine sneller, Dr. Tovar is. Time: 1729 --Case discussed with Dr. Tovar, machine sneller, who recommends starting patient on dobutamine 5mcg/kg/min and request critical care consult [address] Polanco who [place] see patient [place] ED [id number] Blunt patient is stable for tele and does not qualify for ICU at this time. ---- Scribe Attestation: Documented by Telma Sánchez, acting as a scribe for Carmine Walton MD Provider Scribe Attestation: All medical record entries made by the Scribe were at my direction and personally dictated by me. I have reviewed the chart and agree that the record accurately reflects my personal performance of the history, physical exam, medical decision making, and the department course for this patient. I have also personally directed, reviewed, and agree with the discharge instructions and disposition. Disposition - Clinical Impression Clinical Impression: Acute on chronic systolic (congestive) heart failure, ARF (acute renal failure) - Patient ED Disposition Is Patient to be Admitted: Yes Discussed With Dr.: Grey Arriaga Doctor Will See Patient In The: Hospital Counseled Patient/Family Regarding: Studies Performed, Diagnosis - Disposition Disposition Time: 16:00 Condition: FAIR - Pt Status Changed To: Hospital Disposition Of: Inpatient - Admit Certification Admit to Inpatient:: After my assessment, the patient will require hospitalization for at least two midnights. This is because of the severity of symptoms shown, intensity of services needed, and/or the medical risk in this patient being treated as an outpatient. - POA Present On Arrival: None
[2018-01-07 16:00] LABS: BANDS 2 % (0-2); LYMPHOCYTE 12 % (20-50); MONOCYTE 2 % (0-10); NEUTROPHIL 84 % (42-75); PLATELET ESTIMATE NORMAL (NORMAL); TOTAL CELLS COUNTED 100
[2018-01-07 16:01] LABS: ANISOCYTOSIS SLIGHT; OVALOCYTES SLIGHT
[2018-01-07 16:02] LABS: TEARDROP CELLS SLIGHT
[2018-01-07 16:02] LABS: PARTIAL THROMBOPLASTIN TIME 36.8 Seconds (25.6-37.1)
[2018-01-07 16:08] LABS: CALCIUM 9.5 mg/dL (8.4-10.2)
[2018-01-07 16:20] LABS: TROPONIN I 0.047 ng/mL (0.00-0.120)
[2018-01-07] MEDS ORDERED: DOPamine 400mg/250ml D5W 400 MG/250 ML BAG IV ONE ×2 (17:29→17:43)
[2018-01-07] MEDS ORDERED: DOBUTamine 500mg/250ml D5W 500 MG/250 ML BAG IV SCH (18:00)
--- NOTE | 2018-01-07 18:40 | CP.PCM.CON ---
History of Present Illness - History of Present Illness History of Present Illness: 62yo M. PMHx liver transplant, HTN, CHF, PPM. p/w SOB secondary to pulmonary edema from suspected acute exacerbation of chronic diastolic CHF. On high flow oxygen resting comfortably. Mildly SOB. Patient has sore throat infection x 1 week. Review of Systems - Review of Systems All systems: reviewed and no additional remarkable complaints except - Respiratory Respiratory: Dyspnea Past Patient History - Past Social History Smoking Status: Former Smoker - CARDIAC Hx Cardia Arrhythmia: Yes Hx Congestive Heart Failure: Yes Hx Hypercholesterolemia: Yes Hx Hypertension: Yes Hx Pacemaker: Yes - PULMONARY Hx Pulmonary Embolism: Yes - HEENT Hx Deafness: Yes (left ear) - RENAL Hx Chronic Kidney Disease: Yes - MUSCULOSKELETAL/RHEUMATOLOGICAL Hx Falls: No - GASTROINTESTINAL Other/Comment: Hx liver transplant - PSYCHIATRIC Hx Substance Use: No - SURGICAL HISTORY Hx Liver Transplant: Yes (1998) Other/Comment: brain surgery 1984 - ANESTHESIA Hx Anesthesia: Yes Hx Anesthesia Reactions: No Meds Allergies/Adverse Reactions: Allergies Allergy/AdvReac Type Severity Reaction Status Date / Time No Known Allergies Allergy Verified 01/07/18 13:48 - Medications Medications: Current Medications Bumetanide (Bumex) 1 mg IVP DAILY [facility] Dobutamine HCl/Dextrose (Dobutamine/Dextrose 5% 500mg/250ml) 500 mg in 250 mls @ 9.389 mls/hr IV .Q24H [facility]; Protocol Last Admin: 01/07/18 17:59 Dose: 9.389 mls/hr Physical Exam - Head Exam Head Exam: ATRAUMATIC, NORMAL INSPECTION, NORMOCEPHALIC - Eye Exam Eye Exam: EOMI, Normal appearance, PERRL - ENT Exam ENT Exam: Mucous Membranes Moist, Normal Exam - Neck Exam Neck exam: Positive for: Normal Inspection - Respiratory Exam Respiratory Exam: Rales - Cardiovascular Exam Cardiovascular Exam: REGULAR RHYTHM - GI/Abdominal Exam GI & Abdominal Exam: Normal Bowel Sounds, Soft. absent: Tenderness - Neurological Exam Neurological exam: Alert, CN II-XII Intact, Oriented x3, Reflexes Normal - Psychiatric Exam Psychiatric exam: Normal Affect, Normal Mood Results - Vital Signs Recent Vital Signs: Last Vital Signs Temp 97.5 F L 01/07/18 15:50 Pulse 70 01/07/18 17:59 Resp 24 01/07/18 17:59 BP 142/86 01/07/18 17:59 Pulse Ox 93 L 01/07/18 17:59 - Labs Result Diagrams: 01/07/18 14:59 01/07/18 15:33 Labs: Laboratory Results - last 24 hr 01/07/18 01/07/18 01/07/18 14:55 14:59 14:59 WBC 9.4 D RBC 4.56 Hgb 13.4 D Hct 42.6 MCV 93.4 D MCH 29.5 MCHC 31.6 L RDW 15.4 H Plt Count 143 MPV 9.9 Neut % (Auto) 81.9 H Lymph % (Auto) 9.8 L Polk % (Auto) 5.9 Eos % (Auto) 1.8 Baso % (Auto) 0.6 Neut # (Auto) 7.7 H Lymph # (Auto) 0.9 L Polk # (Auto) 0.6 Eos # (Auto) 0.2 Baso # (Auto) 0.1 Neutrophils % (Manual) 84 H Band Neutrophils % 2 Lymphocytes % (Manual) 12 L Monocytes % (Manual) 2 Platelet Estimate Normal Anisocytosis (manual) Slight Tear Drop Cells Slight Ovalocytes Slight PT INR APTT pO2 40 VBG pH 7.40 VBG pCO2 40 VBG HCO3 24.3 VBG Total CO2 26.0 VBG O2 Sat (Calc) 81.8 H VBG Base Excess 0.0 Sodium 177.0 H* Chloride 119.0 H Glucose 83 Lactate 2.1 FiO2 21.0 Crit Value Called To Sue centeno Crit Value Called By 23 Crit Value Read Back Y Blood Gas Notified Time 1500 Potassium Carbon Dioxide Anion Gap BUN Creatinine Est GFR ( Amer) Est GFR (Non-Af Amer) Random Glucose Calcium Troponin I NT-Pro-B Natriuret Pep Grp A Beta Strep Ag Negative 01/07/18 01/07/18 15:33 15:33 WBC RBC Hgb Hct MCV MCH MCHC RDW Plt Count MPV Neut % (Auto) Lymph % (Auto) Polk % (Auto) Eos % (Auto) Baso % (Auto) Neut # (Auto) Lymph # (Auto) Polk # (Auto) Eos # (Auto) Baso # (Auto) Neutrophils % (Manual) Band Neutrophils % Lymphocytes % (Manual) Monocytes % (Manual) Platelet Estimate Anisocytosis (manual) Tear Drop Cells Ovalocytes PT 15.2 H INR 1.3 APTT 36.8 pO2 VBG pH VBG pCO2 VBG HCO3 VBG Total CO2 VBG O2 Sat (Calc) VBG Base Excess Sodium 144 Chloride 108 H Glucose Lactate FiO2 Crit Value Called To Crit Value Called By Crit Value Read Back Blood Gas Notified Time Potassium 3.9 Carbon Dioxide 27 Anion Gap 13 BUN 56 H Creatinine 3.8 H Est GFR ( Amer) 20 Est GFR (Non-Af Amer) 16 Random Glucose 90 Calcium 9.5 Troponin I 0.0470 NT-Pro-B Natriuret Pep 99723 H Grp A Beta Strep Ag Assessment & Plan (1) Acute on chronic systolic (congestive) heart failure Assessment and Plan: 62yo M. PMHx liver transplant, HTN, CHF, PPM. p/w SOB secondary to pulmonary edema from suspected acute exacerbation of chronic diastolic CHF. Pulm: dyspnea. Put on high flow, since patient is refusing BIPAP. High flow is suboptimal treatment, explained to patient, still refusing. CV: patient to be started on fixed dose dobuatmine as per physical sciences instructor to improve cardiac output and hopefully diuresis. Renal: continue diuretics and would add albumin to increase efficacy of lasix. patient refusing villafana. DVT proph - lovenox Patient clinically stable for continued management on telemetry floors. If clinical status changes please reconsult ICU. Status: Acute
[2018-01-07] MEDS ORDERED: Albumin Human 5% (12.5 gm/250 ml) IV SCH (19:00)
[2018-01-07] MEDS ORDERED: Oxycodone/Acetaminophen 5/325 mg Tab PO PRN (23:47)
[2018-01-08] MEDS: Albuterol-Ipratrop 3 mg / 0.5 (3 ml) UD INH SCH ×5 (00:21→19:27)
[2018-01-08] MEDS: Benzocaine/Menthol (Cepacol) Lozenge PO PRN ×2 (01:09→10:06)
[2018-01-08 05:42] LABS: CALCIUM 9.2 mg/dL (8.4-10.2)
[2018-01-08 05:49] LABS: HEMOGLOBIN 12.9 g/dL (12.0-18.0); MEAN CELL VOLUME 90.5 fl (80.0-94.0); MEAN CORPUSCULAR HEMOGLOBIN 29.2 pg (27.0-31.0); MEAN CORPUSCULAR HGB CONC 32.2 g/dL (33.0-37.0); RBC 4.42 Mil/uL (4.40-5.90); RED CELL DISTRIBUTION WIDTH 14.9 % (11.5-14.5); WHITE BLOOD COUNT 7.2 K/uL (4.8-10.8)
[2018-01-08] MEDS ORDERED: Influenza Vaccine 60 MCG/0.5 ML SYR (3 yr & up) IM ONE (06:57)
[2018-01-08] MEDS ORDERED: Pneumococcal 23-Valent Vaccine IM ONE (06:57)
[2018-01-08] MEDS: Acetylcysteine 20% Inhal Soln (4ml) INH SCH ×2 (07:52→19:27)
--- NOTE | 2018-01-08 09:10 | CARD ---
APPROVED REPORT Date of service: 01/07/2018 EKG Measurement Heart [id number] <Conclusion> Ventricular-paced rhythm with occasional premature ventricular complexes Biventricular pacemaker detected Abnormal ECG
--- NOTE | 2018-01-08 09:35 | CP.PCM.HP ---
History of Present Illness - History of Present Illness History of Present Illness: 62 YR OLD MALE ADMITTED WITH ACUTE EXACERBATION OF CHF.HE HAS MULTIPLE MEDICAL PROBLEMS INCLUDING KIDNEY FAILURE,CHF,S/P PACEMAKER PLACEMENT,S/P LIVER TRANSPLANT AND HYPERLIPIDEMIA.HE REFUSED DIALYSIS IN THE PAST AND HAS BEEN POORLY COMPLIANT TO FOLLOWUP AND THERAPY Present on Admission - Present on Admission Any Indicators Present on Admission: Yes Past Patient History - Past Medical History & Family History Past Medical History?: Yes - Past Social History Smoking Status: Former Smoker - CARDIAC Hx Cardiac Disorders: Yes Hx Cardia Arrhythmia: Yes Hx Hypertension: Yes Hx Pacemaker: Yes - PULMONARY Hx Respiratory Disorders: Yes Hx Pulmonary Edema: Yes - NEUROLOGICAL Hx Neurological Disorder: No - HEENT Hx HEENT Problems: Yes Hx Deafness: Yes (left ear) - RENAL Hx Chronic Kidney Disease: Yes Hx Renal Failure: Yes - ENDOCRINE/METABOLIC Hx Endocrine Disorders: No Hx Adrenal Cancer: No - HEMATOLOGICAL/ONCOLOGICAL Hx Blood Transfusions: Yes Hx Blood Transfusion Reaction: No Hx Hepatitis B: Yes - INTEGUMENTARY Hx Dermatological Problems: No - MUSCULOSKELETAL/RHEUMATOLOGICAL Hx Musculoskeletal Disorders: No Hx Falls: No - GASTROINTESTINAL Hx Gastrointestinal Disorders: Yes Other/Comment: Hx liver transplant - GENITOURINARY/GYNECOLOGICAL Hx Genitourinary Disorders: No - PSYCHIATRIC Hx Psychophysiologic Disorder: No Hx Substance Use: No - SURGICAL HISTORY Hx Surgeries: Yes Hx Liver Transplant: Yes (1998) Other/Comment: brain surgery 1984 - ANESTHESIA Hx Anesthesia: Yes Hx Anesthesia Reactions: No Meds Home Medications: Home Medication List Medication Instructions Recorded Confirmed Type Entecavir [Baraclude] 0.5 mg PO Q48H #14 01/08/18 Rx Allergies/Adverse Reactions: Allergies Allergy/AdvReac Type Severity Reaction Status Date / Time No Known Allergies Allergy Verified 01/07/18 13:48 Physical Exam - Constitutional Appears: In Acute Distress - Head Exam Head Exam: ATRAUMATIC, NORMAL INSPECTION, NORMOCEPHALIC - Eye Exam Eye Exam: EOMI, Normal appearance, PERRL Pupil Exam: NORMAL ACCOMODATION, PERRL - ENT Exam ENT Exam: Mucous Membranes Moist, Normal Exam - Neck Exam Neck exam: Positive for: Normal Inspection - Respiratory Exam Respiratory Exam: Decreased Breath Sounds, Prolonged Expiratory Phase, Rales, Wheezes Additional comments: ON HIGH FLOW O2 - Cardiovascular Exam Cardiovascular Exam: REGULAR RHYTHM Additional comments: PACEMAKER IN PLACE - GI/Abdominal Exam GI & Abdominal Exam: Normal Bowel Sounds, Soft. absent: Tenderness - Rectal Exam Rectal Exam: NORMAL INSPECTION - Extremities Exam Extremities exam: Positive for: pedal edema - Back Exam Back exam: NORMAL INSPECTION - Neurological Exam Neurological exam: Abnormal Gait, Alert, CN II-XII Intact, Oriented x3, Reflexes Normal - Psychiatric Exam Psychiatric exam: Anxious, Flat Affect - Skin Skin Exam: Dry, Intact, Normal Color, Warm Results - Vital Signs Recent Vital Signs: Last Vital Signs Temp 97.2 F L 01/08/18 08:57 Pulse 70 01/08/18 08:57 Resp 20 01/08/18 08:57 BP 163/98 H 01/08/18 08:57 Pulse Ox 95 01/08/18 08:57 - Labs Result Diagrams: 01/08/18 04:20 01/08/18 04:20 Labs: Laboratory Results - last 24 hr 01/07/18 01/07/18 01/07/18 14:55 14:59 14:59 WBC 9.4 D RBC 4.56 Hgb 13.4 D Hct 42.6 MCV 93.4 D MCH 29.5 MCHC 31.6 L RDW 15.4 H Plt Count 143 MPV 9.9 Neut % (Auto) 81.9 H Lymph % (Auto) 9.8 L [place] % (Auto) 5.9 Eos % (Auto) 1.8 Baso % (Auto) 0.6 Neut # (Auto) 7.7 H Lymph # (Auto) 0.9 L [place] # (Auto) 0.6 Eos # (Auto) 0.2 Baso # (Auto) 0.1 Neutrophils % (Manual) 84 H Band Neutrophils % 2 Lymphocytes % (Manual) 12 L Monocytes % (Manual) 2 Platelet Estimate Normal Anisocytosis (manual) Slight Tear Drop Cells Slight Ovalocytes Slight PT INR APTT pO2 40 VBG pH 7.40 VBG pCO2 40 VBG HCO3 24.3 VBG Total CO2 26.0 VBG O2 Sat (Calc) 81.8 H VBG Base Excess 0.0 Sodium 177.0 H* Chloride 119.0 H Glucose 83 Lactate 2.1 FiO2 21.0 Crit Value Called To Sue centeno Crit Value Called By 23 Crit Value Read Back Y Blood Gas Notified Time 1500 Potassium Carbon Dioxide Anion Gap BUN Creatinine Est GFR ( Amer) Est GFR (Non-Af Amer) Random Glucose Calcium Troponin I NT-Pro-B Natriuret Pep Grp A Beta Strep Ag Negative 01/07/18 01/07/18 01/08/18 15:33 15:33 04:20 WBC 7.2 RBC 4.42 Hgb 12.9 Hct 40.0 MCV 90.5 D MCH 29.2 MCHC 32.2 L RDW 14.9 H Plt Count 139 MPV Neut % (Auto) Lymph % (Auto) [place] % (Auto) Eos % (Auto) Baso % (Auto) Neut # (Auto) Lymph # (Auto) [place] # (Auto) Eos # (Auto) Baso # (Auto) Neutrophils % (Manual) Band Neutrophils % Lymphocytes % (Manual) Monocytes % (Manual) Platelet Estimate Anisocytosis (manual) Tear Drop Cells Ovalocytes PT 15.2 H INR 1.3 APTT 36.8 pO2 VBG pH VBG pCO2 VBG HCO3 VBG Total CO2 VBG O2 Sat (Calc) VBG Base Excess Sodium 144 Chloride 108 H Glucose Lactate FiO2 Crit Value Called To Crit Value Called By Crit Value Read Back Blood Gas Notified Time Potassium 3.9 Carbon Dioxide 27 Anion Gap 13 BUN 56 H Creatinine 3.8 H Est GFR ( Amer) 20 Est GFR (Non-Af Amer) 16 Random Glucose 90 Calcium 9.5 Troponin I 0.0470 NT-Pro-B Natriuret Pep 31335 H Grp A Beta Strep Ag 01/08/18 04:20 WBC RBC Hgb Hct MCV MCH MCHC RDW Plt Count MPV Neut % (Auto) Lymph % (Auto) [place] % (Auto) Eos % (Auto) Baso % (Auto) Neut # (Auto) Lymph # (Auto) [place] # (Auto) Eos # (Auto) Baso # (Auto) Neutrophils % (Manual) Band Neutrophils % Lymphocytes % (Manual) Monocytes % (Manual) Platelet Estimate Anisocytosis (manual) Tear Drop Cells Ovalocytes PT INR APTT pO2 VBG pH VBG pCO2 VBG HCO3 VBG Total CO2 VBG O2 Sat (Calc) VBG Base Excess Sodium 144 Chloride 108 H Glucose Lactate FiO2 Crit Value Called To Crit Value Called By Crit Value Read Back Blood Gas Notified Time Potassium 3.6 Carbon Dioxide 26 Anion Gap 14 BUN 54 H Creatinine 3.7 H Est GFR ( Amer) 20 Est GFR (Non-Af Amer) 17 Random Glucose 79 Calcium 9.2 Troponin I NT-Pro-B Natriuret Pep 56228 H Grp A Beta Strep Ag Assessment & Plan - Assessment and Plan (Free Text) Assessment: CHF--DIASTOLIC AND SYSTOLIC DYSFUNCTION ARRYTHMIAS ASHD ACUTE ON CHRONIC KIDNEY DZ HX OF LIVER TRANSPLANT GENERAL DEBILITY Plan: SEE ORDERS CARDIAC EVALUATION - Date & Time Date: 01/08/18 Time: 09:38
--- NOTE | 2018-01-08 10:05 | RAD ---
Date of service: 01/08/2018 PROCEDURE: CHEST RADIOGRAPH, 1 VIEW HISTORY: chf exacerbation COMPARISON: None available. FINDINGS: LUNGS: 01/07/2018 patchy opacity at right base and left perihilar, grossly unchanged. Possible pneumonia. PLEURA: Small bilateral pleural effusion, left greater than right. No pneumothorax. CARDIOVASCULAR: Normal heart size. Permanent pacemaker. No congestive change. Normal. OSSEOUS STRUCTURES: No significant abnormalities. VISUALIZED UPPER ABDOMEN: Normal. OTHER FINDINGS: None. IMPRESSION: Right basilar and left perihilar opacities. Possible pneumonia. Small bilateral pleural effusion. Permanent pacemaker.
--- NOTE | 2018-01-08 10:15 | RAD ---
Date of service: 01/07/2018 PROCEDURE: CHEST RADIOGRAPH, 1 VIEW HISTORY: dyspnea COMPARISON: 10/03/2017 FINDINGS: LUNGS: Very limited portable examination. The right lung is well inflated. There is moderate pulmonary venous congestion. PLEURA: No pneumothorax. Small right pleural effusion. The left costophrenic angle has been excluded from the film. CARDIOVASCULAR: Persistent moderate cardiomegaly. No aortic atherosclerotic calcifications present. Incompletely imaged left-sided permanent pacing device. OSSEOUS STRUCTURES: Within normal limits for the patient's age. VISUALIZED UPPER ABDOMEN: Normal. OTHER FINDINGS: None. IMPRESSION: Very limited portable examination. The left costophrenic angle has been excluded from the film. Moderate cardiomegaly, moderate pulmonary venous congestion and small right pleural effusion.
--- NOTE | 2018-01-08 15:09 | CP.PCM.CON ---
History of Present Illness - History of Present Illness History of Present Illness: ASKED TO SEE PT BY DR RICHARDSON. PT IS 62 YO MALE ADMITTED WITH 3 WEEKS OF PROGRESSIVE SOB AND ORTHOPNEA. PT ADMITS TO INCREASING BLEE, BRIGGS, ORTHOPNEA AND WEIGHT GAIN. POSITIVE COUGH WITH CLEAR MUCOUS. DENIES CP, PALP, LH, F/C/N/V/D/C. DENIES MED NONCOMPLIANCE, DENIES DIETARY NONCOMPLIANCE. PT HAS A HX OF CARDIOMYOPATHY. PT WAS SCHEDULED IN OFFICE FOR F.U SEVERAL TIMES BUT HE DID NOT KEEP HIS APPOINTMENTS. Review of Systems - Constitutional Constitutional: As Per HPI, Fatigue. absent: Anorexia, Chills, Daytime Sleepiness, Excessive Sweating, Fever, Frequent Falls, Headache, Increased Appetite, Lethargy, Malaise, Night Sweats, Snoring, Sleep Apnea, Weight Gain, Weight Loss, Weakness, Other - EENT Eyes: As Per HPI. absent: Blind Spots, Blurred Vision, Change in Vision, Decreased Night Vision, Diplopia, Discharge, Dry Eye, Exophthalmos, Floaters, Irritation, Itchy Eyes, Loss of Peripheral Vision, Pain, Photophobia, Requires Corrective Lenses, Sees Flashes, Spots in Vision, Tunnel Vision, Other Visual Disturbances, Loss of Vision, Other Ears: As Per HPI. absent: Decreased Hearing, Ear Discharge, Ear Pain, Tinnitus, Abnormal Hearing, Disequilibrium, Dizziness, Other Nose/Mouth/Throat: As Per HPI. absent: Epistaxis, Nasal Congestion, Nasal Discharge, Nasal Obstruction, Nasal Trauma, Nose Pain, Post Nasal Drip, Sinus Pain, Sinus Pressure, Bleeding Gums, Change in Voice, Dental Pain, Dry Mouth, Dysphagia, Halitosis, Hoarsness, Lip Swelling, Mouth Lesions, Mouth Pain, Odynophagia, Sore Throat, Throat Swelling, Tongue Swelling, Facial Pain, Neck Pain, Neck Mass, Other - Cardiovascular Cardiovascular: As Per HPI, Dyspnea, Edema, Leg Edema. absent: Acrocyanosis, Chest Pain, Chest Pain at Rest, Chest Pain with Activity, Claudication, Diaphoresis, Dyspnea on Exertion, Irregular Heart Rhythm, Pain Radiating to Ar m/Neck/Jaw, Leg Ulcers, Lightheadedness, Orthopnea, Palpitations, Paroxysmal Nocturnal Dyspnea, Pedal Edema, Radiating Pain, Rapid Heart Rate, Slow Heart Rate, Syncope, Other - Respiratory Respiratory: As Per HPI, Dyspnea, Dyspnea on Exertion, Chest Congestion, Excessive Mucous Production. absent: Cough, Hemoptysis, Wheezing, Snoring, Stridor, Pain on Inspiration, Change in Mucous Color, Pain with Coughing, Other - Gastrointestinal Gastrointestinal: As Per HPI. absent: Abdominal Pain, Belching, Bloating, Change in Bowel Habits, Change in Stool Character, Coffee Ground Emesis, Constipation, Cramping, Diarrhea, Dyspepsia, Dysphagia, Early Satiety, Excessive Flatus, Fecal Incontinence, Heartburn, Hematemesis, Hematochezia, Loose Stools, Melena, Nausea, Odynophagia, Temesmus, Vomiting, Other - Genitourinary Genitourinary: As Per HPI. absent: Change in Urinary Stream, Difficulty Urinating, Dysuria, Flank Pain, Hematuria, Pyuria, Nocturia, Urinary Incontinence, Urinary Frequency, Urinary Hesitance, Urinary Urgency, Voiding Freq/Small Amts, Freq UTI, Hx Renal/Bladder Calculi, Hx /Renal Surgery, Bladder Distension, Other - Reproductive: Male Reproductive:Male: As Per HPI - Musculoskeletal Musculoskeletal: As Per HPI. absent: Abnormal Gait, Arthralgias, Atrophy, Back Pain, Deformity, Joint Swelling, Limited Range of Motion, Loss of Height, Muscle Cramps, Muscle Weakness, Myalgias, Neck Pain, Numbness, Radiating Pain into Limb, Stiffness, Tingling, Other - Integumentary Integumentary: As Per HPI. absent: Acne, Alopecia, Bleeding Lesions, Change in Hair, Change in Nails, Change in Pigmentation, Changing Lesions, Dry Skin, Erythema, Furuncle, Hirsutism, Lesions, New Lesions, Non-Healing Lesions, Photosensitivity, Pruritus, Rash, Skin Pain, Skin Ulcer, Sores, Striae, Swelling, Unusual Bruising, Wounds, Jaundice, Other - Neurological Neurological: As Per HPI. absent: Abnormal Gait, Abnormal Hearing, Abnormal Movements, Abnormal Speech, Behavioral Changes, Burning Sensations, Confusion, Convulsions, Disequilibrium, Dizziness, Numbness, Focal Weakness, Frequent Falls, Headaches, Lack of Coordination, Loss of Vision, Memory Loss, Paresthesias, Radicular Pain, Restless Legs, Sensory Deficit, Syncope, Tingling, Tremor, Vertigo, Weakness, Other Visual Disturbances, Other - Psychiatric Psychiatric: As Per HPI. absent: Abnormal Sleep Pattern, Anhedonia, Anxiety, Auditory Hallucinations, Behavioral Changes, Change in Appetite, Change in Libido, Confusion, Depression, Difficulty Concentrating, Hallucinations, Homicidal Ideation, Hopelessness, Irritability, Memory Loss, Mood Swings, Panic Attacks, Paranoia, Suicidal Ideation, Visual Hallucinations, Tactile Hallucinations, Other - Endocrine Endocrine: As Per HPI. absent: Change in Body Appearance, Change in Libido, Cold Intolorance, Deepening of Voice, Excessive Sweating, Fatigue, Flushing, Heat Intolorance, Increase in Ring/Shoe/Hat Size, Palpitations, Polydipsia, Polyphagia, Polyuria, Other - Hematologic/Lymphatic Hematologic: As Per HPI. absent: Easy Bleeding, Easy Bruising, Lymphadenopathy, Other Past Patient History - Past Medical History & Family History Past Medical History?: Yes - Past Social History Smoking Status: Former Smoker Chewing Tobacco Use: No Cigar Use: No Alcohol: None Drugs: Denies Home Situation {Lives}: Alone Domestic Violence: Negative - CARDIAC Hx Cardiac Disorders: Yes Hx Cardia Arrhythmia: Yes Hx Hypertension: Yes Hx Pacemaker: Yes - PULMONARY Hx Respiratory Disorders: Yes Hx Pulmonary Edema: Yes - NEUROLOGICAL Hx Neurological Disorder: No - HEENT Hx HEENT Problems: Yes Hx Deafness: Yes (left ear) - RENAL Hx Chronic Kidney Disease: Yes Hx Renal Failure: Yes - ENDOCRINE/METABOLIC Hx Endocrine Disorders: No Hx Adrenal Cancer: No - HEMATOLOGICAL/ONCOLOGICAL Hx Blood Transfusions: Yes Hx Blood Transfusion Reaction: No Hx Hepatitis B: Yes - INTEGUMENTARY Hx Dermatological Problems: No - MUSCULOSKELETAL/RHEUMATOLOGICAL Hx Musculoskeletal Disorders: No Hx Falls: No - GASTROINTESTINAL Hx Gastrointestinal Disorders: Yes Other/Comment: Hx liver transplant - GENITOURINARY/GYNECOLOGICAL Hx Genitourinary Disorders: No - PSYCHIATRIC Hx Psychophysiologic Disorder: No Hx Substance Use: No - SURGICAL HISTORY Hx Surgeries: Yes Hx Liver Transplant: Yes (1998) Other/Comment: brain surgery 1984 - ANESTHESIA Hx Anesthesia: Yes Hx Anesthesia Reactions: No Meds Home Medications: Home Medication List Medication Instructions Recorded Confirmed Type Entecavir [Baraclude] 0.5 mg PO Q48H #14 01/08/18 Rx Allergies/Adverse Reactions: Allergies Allergy/AdvReac Type Severity Reaction Status Date / Time No Known Allergies Allergy Verified 01/07/18 13:48 - Medications Medications: Current Medications Acetylcysteine (Acetylcysteine 20%) 2 ml INH RBID SHAKIR Last Admin: 01/08/18 07:52 Dose: 2 ml Albuterol/Ipratropium (Duoneb 3 Mg/0.5 Mg (3 Ml) Ud) 3 ml INH RQ6 SHAKIR Last Admin: 01/08/18 13:39 Dose: 3 ml Alprazolam (Xanax) 0.5 mg PO BID PRN PRN Reason: Anxiety Last Admin: 01/08/18 01:09 Dose: 0.5 mg Apixaban (Eliquis) 2.5 mg PO BID SHAKIR; Protocol Atorvastatin Calcium (Lipitor) 10 mg PO DAILY COUNT INCLUDES THE [facility] Last Admin: 01/08/18 10:03 Dose: 10 mg Benzocaine/Menthol (Cepacol Sore Throat) 1 cordell PO Q3 PRN PRN Reason: Sore Throat Last Admin: 01/08/18 10:06 Dose: 1 cordell Calcium Acetate (Phoslo) 667 mg PO TID COUNT INCLUDES THE [facility] Last Admin: 01/08/18 14:08 Dose: 667 mg Carvedilol (Coreg) 6.25 mg PO Q12 COUNT INCLUDES THE [facility] Last Admin: 01/08/18 09:57 Dose: 6.25 mg Famotidine (Pepcid) 20 mg PO BID COUNT INCLUDES THE [facility] Last Admin: 01/08/18 10:03 Dose: 20 mg Furosemide (Lasix) 40 mg IV Q12H COUNT INCLUDES THE [facility] Last Admin: 01/08/18 05:00 Dose: 40 mg Home Med (Entecavir [Baraclude]) 0.5 mg PO Q48H COUNT INCLUDES THE [facility] Dobutamine HCl/Dextrose (Dobutamine/Dextrose 5% 500mg/250ml) 500 mg in 250 mls @ 9.389 mls/hr IV .Q24H COUNT INCLUDES THE [facility]; Protocol Last Admin: 01/07/18 17:59 Dose: 9.389 mls/hr Ceftriaxone Sodium 1 gm/ (Sodium Chloride) 100 mls @ 100 mls/hr IVPB DAILY COUNT INCLUDES THE [facility]; Protocol Oxycodone/Acetaminophen (Percocet 5/325 Mg Tab) 1 tab PO Q4 PRN PRN Reason: Pain, moderate (4-7) Stop: 01/10/18 23:48 Tacrolimus (Prograf Cap) 0.5 mg PO HS COUNT INCLUDES THE [facility] Last Admin: 01/08/18 01:10 Dose: 0.5 mg Tacrolimus (Prograf Cap) 1 mg PO HS COUNT INCLUDES THE [facility] Last Admin: 01/08/18 01:10 Dose: 1 mg Zolpidem Tartrate (Ambien) 5 mg PO HS PRN PRN Reason: Insomnia Last Admin: 01/08/18 01:09 Dose: 5 mg Physical Exam - Constitutional Appears: In Acute Distress - Head Exam Head Exam: ATRAUMATIC, NORMAL INSPECTION, NORMOCEPHALIC - Eye Exam Eye Exam: EOMI, Normal appearance, PERRL. absent: Conjunctival injection, Nystagmus, Periorbital swelling, Periorbital tenderness, Scleral icterus Pupil Exam: NORMAL ACCOMODATION, PERRL. absent: Fixed, Irregular, Miosis, Mydriatic, Unequal - ENT Exam ENT Exam: Mucous Membranes Moist, Normal Exam. absent: Mucous Membranes Dry, Normal External Ear Exam, Normal Oropharynx, TM's Normal Bilaterally - Neck Exam Neck exam: Positive for: Normal Inspection. Negative for: Full Rom, Lymphadenopathy, Meningismus, Tenderness, Thyromegaly - Respiratory Exam Respiratory Exam: Decreased Breath Sounds, Rales, Rhonchi. absent: Accessory Muscle Use, Chest Wall Tenderness, Clear to Auscultation Bilateral, Prolonged Expiratory Phase, Wheezes, Respiratory Distress, Stridor, NORMAL BREATHING PATTERN - Cardiovascular Exam Cardiovascular Exam: REGULAR RHYTHM, JVD, +S1, +S2, Systolic Murmur. absent: Bradycardia, Tachycardia, Clicks, Diastolic murmur, Gallop, Irregular Rhythm, RRR, Rubs, +S4 - GI/Abdominal Exam GI & Abdominal Exam: Normal Bowel Sounds, Soft. absent: Bruit, Diminished Bowel Sounds, Distended, Firm, Guarding, Hernia, Hyperactive Bowel Sounds, Hypoactive Bowel Sounds, Mass, Organomegaly, Pulsatile Mass, Rebound, Rigid, Tenderness - Rectal Exam Rectal Exam: Deferred - Extremities Exam Extremities exam: Positive for: pedal edema, pedal pulses present. Negative for: calf tenderness, full ROM, joint swelling, normal capillary refill, normal inspection, tenderness - Back Exam Back exam: NORMAL INSPECTION. absent: CVA tenderness (L), CVA tenderness (R), FULL ROM, muscle spasm, paraspinal tenderness, rash noted, tenderness, vertebral tenderness - Neurological Exam Neurological exam: Alert, CN II-XII Intact, Normal Gait, Oriented x3, Reflexes Normal - Psychiatric Exam Psychiatric exam: Normal Affect, Normal Mood - Skin Skin Exam: Dry, Intact, Normal Color, Warm Results - Vital Signs Recent Vital Signs: Last Vital Signs Temp 96.9 F L 01/08/18 12:49 Pulse 69 01/08/18 12:49 Resp 20 01/08/18 12:49 BP 162/95 H 01/08/18 12:49 Pulse Ox 93 L 01/08/18 12:49 - Labs Result Diagrams: 01/09/18 04:28 01/09/18 04:28 Labs: Laboratory Results - last 24 hr 01/07/18 01/07/18 01/07/18 14:59 14:59 15:33 WBC 9.4 D RBC 4.56 Hgb 13.4 D Hct 42.6 MCV 93.4 D MCH 29.5 MCHC 31.6 L RDW 15.4 H Plt Count 143 MPV 9.9 Neut % (Auto) 81.9 H Lymph % (Auto) 9.8 L [place] % (Auto) 5.9 Eos % (Auto) 1.8 Baso % (Auto) 0.6 Neut # (Auto) 7.7 H Lymph # (Auto) 0.9 L [place] # (Auto) 0.6 Eos # (Auto) 0.2 Baso # (Auto) 0.1 Neutrophils % (Manual) 84 H Band Neutrophils % 2 Lymphocytes % (Manual) 12 L Monocytes % (Manual) 2 Platelet Estimate Normal Anisocytosis (manual) Slight Tear Drop Cells Slight Ovalocytes Slight PT INR APTT Sodium 144 Potassium 3.9 Chloride 108 H Carbon Dioxide 27 Anion Gap 13 BUN 56 H Creatinine 3.8 H Est GFR ( Amer) 20 Est GFR (Non-Af Amer) 16 Random Glucose 90 Calcium 9.5 Troponin I 0.0470 NT-Pro-B Natriuret Pep 39118 H Grp A Beta Strep Ag Negative 01/07/18 01/08/18 01/08/18 15:33 04:20 04:20 WBC 7.2 RBC 4.42 Hgb 12.9 Hct 40.0 MCV 90.5 D MCH 29.2 MCHC 32.2 L RDW 14.9 H Plt Count 139 MPV Neut % (Auto) Lymph % (Auto) [place] % (Auto) Eos % (Auto) Baso % (Auto) Neut # (Auto) Lymph # (Auto) [place] # (Auto) Eos # (Auto) Baso # (Auto) Neutrophils % (Manual) Band Neutrophils % Lymphocytes % (Manual) Monocytes % (Manual) Platelet Estimate Anisocytosis (manual) Tear Drop Cells Ovalocytes PT 15.2 H INR 1.3 APTT 36.8 Sodium 144 Potassium 3.6 Chloride 108 H Carbon Dioxide 26 Anion Gap 14 BUN 54 H Creatinine 3.7 H Est GFR ( Amer) 20 Est GFR (Non-Af Amer) 17 Random Glucose 79 Calcium 9.2 Troponin I NT-Pro-B Natriuret Pep 61678 H Grp A Beta Strep Ag - EKG Data EKG Interpreted by: Myself EKG shows normal: Sinus rhythm Rate: Normal Assessment & Plan (1) Acute on chronic combined systolic and diastolic congestive heart failure Status: Acute (2) Medical non-compliance Status: Acute (3) AV junctional bradycardia Status: Acute (4) Chronic kidney disease, stage IV (severe) Status: Acute (5) Liver transplant disorder Status: Acute (6) S/P placement of cardiac pacemaker Status: Acute - Assessment and Plan (Free Text) Plan: ECHO DOBUTAMINE AT 5MCG/KG/HR BUMEX 2MG IV Q12 I N O WEIGHTS REPLEAT LYTES MONITOR CR 45 MIN TOTAL CARE TIME.
[2018-01-08] MEDS ORDERED: DOBUTamine 500mg/250ml D5W 500 MG/250 ML BAG IV SCH ×2 (16:00→22:00)
[2018-01-09] MEDS: Albuterol-Ipratrop 3 mg / 0.5 (3 ml) UD INH SCH ×4 (00:59→19:42)
[2018-01-09 05:33] LABS: BASO % 0.5 % (0.0-2.0); EOS # 0.2 K/uL (0.0-0.7); EOS % 2.5 % (0.0-4.0); HEMOGLOBIN 13.2 g/dL (12.0-18.0); LYMPH % 15.7 % (20.0-40.0); MEAN CELL VOLUME 89.2 fl (80.0-94.0); MEAN CORPUSCULAR HGB CONC 32.5 g/dL (33.0-37.0); MEAN PLATELET VOLUME 9.7 fl (7.2-11.7); MONO # 0.6 K/uL (0.0-0.8); MONO % 8.9 % (0.0-10.0); NEUT # 4.6 K/uL (1.8-7.0); NEUT % 72.4 % (50.0-75.0); NRBC % 0.1 % (0.0-0.0); RBC 4.55 Mil/uL (4.40-5.90); RED CELL DISTRIBUTION WIDTH 15.1 % (11.5-14.5); WHITE BLOOD COUNT 6.4 K/uL (4.8-10.8)
[2018-01-09 05:40] LABS: CALCIUM 9.3 mg/dL (8.4-10.2)
[2018-01-09] MEDS: Acetylcysteine 20% Inhal Soln (4ml) INH SCH ×2 (07:26→19:42)
--- NOTE | 2018-01-09 10:06 | CP.PCM.PN ---
Subjective - Date & Time of Evaluation Date of Evaluation: 01/09/18 Time of Evaluation: 10:09 - Subjective Subjective: STILL WEAK BUT LESS DYSPNEA NO CHEST PAINS COUGH LESS BUT SORE THROAT PERSISTS WANTS HIGH FLOW O2 D/MAYELA Objective - Vital Signs/Intake and Output Vital Signs (last 24 hours): Temp Pulse Resp BP Pulse Ox 97.5 F L 67 18 134/89 89 L 01/09/18 08:08 01/09/18 08:35 01/09/18 08:08 01/09/18 08:35 01/09/18 08:08 Intake and Output: 01/09/18 01/09/18 06:59 18:59 Intake Total 1447 Output Total 1190 Balance 257 - Medications Medications: Current Medications Acetylcysteine (Acetylcysteine 20%) 2 ml INH RBID [facility] Last Admin: 01/09/18 07:26 Dose: 2 ml Albuterol/Ipratropium (Duoneb 3 Mg/0.5 Mg (3 Ml) Ud) 3 ml INH RQ6 [facility] Last Admin: 01/09/18 07:26 Dose: 3 ml Alprazolam (Xanax) 0.5 mg PO BID PRN PRN Reason: Anxiety Last Admin: 01/08/18 21:49 Dose: 0.5 mg Apixaban (Eliquis) 2.5 mg PO BID [facility]; Protocol Last Admin: 01/09/18 08:38 Dose: 2.5 mg Atorvastatin Calcium (Lipitor) 10 mg PO DAILY [facility] Last Admin: 01/08/18 10:03 Dose: 10 mg Benzocaine/Menthol (Cepacol Sore Throat) 1 cordell PO Q3 PRN PRN Reason: Sore Throat Last Admin: 01/08/18 10:06 Dose: 1 cordell Bumetanide (Bumex) 2 mg IVP Q12 [facility] Last Admin: 01/09/18 08:31 Dose: 2 mg Calcium Acetate (Phoslo) 667 mg PO TID [facility] Last Admin: 01/09/18 08:38 Dose: 667 mg Carvedilol (Coreg) 12.5 mg PO Q12 [facility] Last Admin: 01/09/18 08:35 Dose: 12.5 mg Famotidine (Pepcid) 20 mg PO BID [facility] Last Admin: 01/09/18 08:35 Dose: 20 mg Home Med (Entecavir [Baraclude]) 0.5 mg PO Q48H [facility] Ceftriaxone Sodium 1 gm/ (Sodium Chloride) 100 mls @ 100 mls/hr IVPB DAILY [facility]; Protocol Last Admin: 01/09/18 08:43 Dose: 100 mls/hr Dobutamine HCl/Dextrose (Dobutamine/Dextrose 5% 500mg/250ml) 500 mg in 250 mls @ 9.389 mls/hr IV .Q24H [facility]; Protocol Dobutamine HCl/Dextrose (Dobutamine/Dextrose 5% 500mg/250ml) 500 mg in 250 mls @ 9.389 mls/hr IV .Q24H [facility]; Protocol Last Admin: 01/08/18 22:05 Dose: 5 mcg/kg/min, 9.389 mls/hr Oxycodone/Acetaminophen (Percocet 5/325 Mg Tab) 1 tab PO Q4 PRN PRN Reason: Pain, moderate (4-7) Stop: 01/10/18 23:48 Tacrolimus (Prograf Cap) 0.5 mg PO HS [facility] Last Admin: 01/08/18 21:25 Dose: 0.5 mg Tacrolimus (Prograf Cap) 1 mg PO HS [facility] Last Admin: 01/08/18 21:25 Dose: 1 mg Zolpidem Tartrate (Ambien) 5 mg PO HS PRN PRN Reason: Insomnia Last Admin: 01/08/18 21:49 Dose: 5 mg - Labs Labs: 01/09/18 04:28 01/09/18 04:28 PT 15.2 Seconds (9.8-13.1) H 01/07/18 15:33 INR 1.3 01/07/18 15:33 APTT 36.8 Seconds (25.6-37.1) 01/07/18 15:33 - Constitutional Appears: Chronically Ill - Head Exam Head Exam: ATRAUMATIC, NORMAL INSPECTION, NORMOCEPHALIC - Eye Exam Eye Exam: EOMI, Normal appearance, PERRL Pupil Exam: NORMAL ACCOMODATION, PERRL - ENT Exam ENT Exam: Mucous Membranes Moist, Normal Exam - Neck Exam Neck Exam: Full ROM, Normal Inspection. absent: Lymphadenopathy - Respiratory Exam Respiratory Exam: Decreased Breath Sounds, Prolonged Expiratory Phase, Rales, NORMAL BREATHING PATTERN - Cardiovascular Exam Cardiovascular Exam: REGULAR RHYTHM, +S1, +S2. absent: Murmur - GI/Abdominal Exam GI & Abdominal Exam: Soft, Normal Bowel Sounds. absent: Tenderness - Rectal Exam Rectal Exam: NORMAL INSPECTION - Extremities Exam Extremities Exam: Full ROM, Normal Capillary Refill, Normal Inspection, Pedal Edema. absent: Joint Swelling - Back Exam Back Exam: NORMAL INSPECTION - Neurological Exam Neurological Exam: Alert, Awake, CN II-XII Intact, Normal Gait, Oriented x3 - Psychiatric Exam Psychiatric exam: Flat Affect - Skin Skin Exam: Dry, Intact, Normal Color, Warm Assessment and Plan - Assessment and Plan (Free Text) Assessment: CHF ?PNEUMONIA ASHD CHRONIC KIDNEY DZ S/P LIVER TRANSPLANT Plan: CONTINUE CURRENT RX CHANGE O2 TO NC
--- NOTE | 2018-01-09 14:00 | CP.PCM.CON ---
History of Present Illness - History of Present Illness History of Present Illness: 62 yo male with complex hx is admitted with acute exac CHF Referred for ID eval of pneumonia Has PIERRE on CKD, HTN CHF s/p Liver transplant Review of Systems - Constitutional Constitutional: As Per HPI, Fatigue. absent: Anorexia, Chills, Daytime Sleepiness, Excessive Sweating, Fever, Frequent Falls, Headache, Increased Appetite, Lethargy, Malaise, Night Sweats, Snoring, Sleep Apnea, Weight Gain, Weight Loss, Weakness, Other - EENT Eyes: As Per HPI. absent: Blind Spots, Blurred Vision, Change in Vision, Decreased Night Vision, Diplopia, Discharge, Dry Eye, Exophthalmos, Floaters, Irritation, Itchy Eyes, Loss of Peripheral Vision, Pain, Photophobia, Requires Corrective Lenses, Sees Flashes, Spots in Vision, Tunnel Vision, Other Visual Disturbances, Loss of Vision, Other Ears: As Per HPI. absent: Decreased Hearing, Ear Discharge, Ear Pain, Tinnitus, Abnormal Hearing, Disequilibrium, Dizziness, Other Nose/Mouth/Throat: As Per HPI. absent: Epistaxis, Nasal Congestion, Nasal Discharge, Nasal Obstruction, Nasal Trauma, Nose Pain, Post Nasal Drip, Sinus Pain, Sinus Pressure, Bleeding Gums, Change in Voice, Dental Pain, Dry Mouth, Dysphagia, Halitosis, Hoarsness, Lip Swelling, Mouth Lesions, Mouth Pain, Odynophagia, Sore Throat, Throat Swelling, Tongue Swelling, Facial Pain, Neck Pain, Neck Mass, Other - Cardiovascular Cardiovascular: As Per HPI, Dyspnea, Edema, Leg Edema. absent: Acrocyanosis, Chest Pain, Chest Pain at Rest, Chest Pain with Activity, Claudication, Diaphoresis, Dyspnea on Exertion, Irregular Heart Rhythm, Pain Radiating to Arm/Neck/Jaw, Leg Ulcers, Lightheadedness, Orthopnea, Palpitations, Paroxysmal Nocturnal Dyspnea, Pedal Edema, Radiating Pain, Rapid Heart Rate, Slow Heart Rate, Syncope, Other - Respiratory Respiratory: As Per HPI, Dyspnea, Dyspnea on Exertion, Chest Congestion, Excessive Mucous Production. absent: Cough, Hemoptysis, Wheezing, Snoring, Stridor, Pain on Inspiration, Change in Mucous Color, Pain with Coughing, Other - Gastrointestinal Gastrointestinal: As Per HPI. absent: Abdominal Pain, Belching, Bloating, Change in Bowel Habits, Change in Stool Character, Coffee Ground Emesis, Constipation, Cramping, Diarrhea, Dyspepsia, Dysphagia, Early Satiety, Excessive Flatus, Fecal Incontinence, Heartburn, Hematemesis, Hematochezia, Loose Stools, Melena, Nausea, Odynophagia, Temesmus, Vomiting, Other - Genitourinary Genitourinary: As Per HPI. absent: Change in Urinary Stream, Difficulty Urinating, Dysuria, Flank Pain, Hematuria, Pyuria, Nocturia, Urinary Incontinence, Urinary Frequency, Urinary Hesitance, Urinary Urgency, Voiding Freq/Small Amts, Freq UTI, Hx Renal/Bladder Calculi, Hx /Renal Surgery, Bladder Distension, Other - Reproductive: Male Reproductive:Male: As Per HPI - Musculoskeletal Musculoskeletal: As Per HPI. absent: Abnormal Gait, Arthralgias, Atrophy, Back Pain, Deformity, Joint Swelling, Limited Range of Motion, Loss of Height, Muscle Cramps, Muscle Weakness, Myalgias, Neck Pain, Numbness, Radiating Pain into Limb, Stiffness, Tingling, Other - Integumentary Integumentary: As Per HPI. absent: Acne, Alopecia, Bleeding Lesions, Change in Hair, Change in Nails, Change in Pigmentation, Changing Lesions, Dry Skin, Erythema, Furuncle, Hirsutism, Lesions, New Lesions, Non-Healing Lesions, Photosensitivity, Pruritus, Rash, Skin Pain, Skin Ulcer, Sores, Striae, Swelling, Unusual Bruising, Wounds, Jaundice, Other - Neurological Neurological: As Per HPI. absent: Abnormal Gait, Abnormal Hearing, Abnormal Movements, Abnormal Speech, Behavioral Changes, Burning Sensations, Confusion, Convulsions, Disequilibrium, Dizziness, Numbness, Focal Weakness, Frequent Falls, Headaches, Lack of Coordination, Loss of Vision, Memory Loss, Paresthesias, Radicular Pain, Restless Legs, Sensory Deficit, Syncope, Tingling, Tremor, Vertigo, Weakness, Other Visual Disturbances, Other - Psychiatric Psychiatric: As Per HPI. absent: Abnormal Sleep Pattern, Anhedonia, Anxiety, Auditory Hallucinations, Behavioral Changes, Change in Appetite, Change in Libido, Confusion, Depression, Difficulty Concentrating, Hallucinations, Homicidal Ideation, Hopelessness, Irritability, Memory Loss, Mood Swings, Panic Attacks, Paranoia, Suicidal Ideation, Visual Hallucinations, Tactile Hallucinations, Other - Endocrine Endocrine: As Per HPI. absent: Change in Body Appearance, Change in Libido, Cold Intolorance, Deepening of Voice, Excessive Sweating, Fatigue, Flushing, Heat Intolorance, Increase in Ring/Shoe/Hat Size, Palpitations, Polydipsia, Polyphagia, Polyuria, Other - Hematologic/Lymphatic Hematologic: As Per HPI. absent: Easy Bleeding, Easy Bruising, Lymphadenopathy, Other Past Patient History - Past Medical History & Family History Past Medical History?: Yes - Past Social History Smoking Status: Former Smoker Chewing Tobacco Use: No Cigar Use: No Alcohol: None Drugs: Denies Home Situation {Lives}: Alone Domestic Violence: Negative - CARDIAC Hx Cardiac Disorders: Yes Hx Cardia Arrhythmia: Yes Hx Hypertension: Yes Hx Pacemaker: Yes - PULMONARY Hx Respiratory Disorders: Yes Hx Pulmonary Edema: Yes - NEUROLOGICAL Hx Neurological Disorder: No - HEENT Hx HEENT Problems: Yes Hx Deafness: Yes (left ear) - RENAL Hx Chronic Kidney Disease: Yes Hx Renal Failure: Yes - ENDOCRINE/METABOLIC Hx Endocrine Disorders: No Hx Adrenal Cancer: No - HEMATOLOGICAL/ONCOLOGICAL Hx Blood Transfusions: Yes Hx Blood Transfusion Reaction: No Hx Hepatitis B: Yes - INTEGUMENTARY Hx Dermatological Problems: No - MUSCULOSKELETAL/RHEUMATOLOGICAL Hx Musculoskeletal Disorders: No Hx Falls: No - GASTROINTESTINAL Hx Gastrointestinal Disorders: Yes Other/Comment: Hx liver transplant - GENITOURINARY/GYNECOLOGICAL Hx Genitourinary Disorders: No - PSYCHIATRIC Hx Psychophysiologic Disorder: No Hx Substance Use: No - SURGICAL HISTORY Hx Surgeries: Yes Hx Liver Transplant: Yes (1998) Other/Comment: brain surgery 1984 - ANESTHESIA Hx Anesthesia: Yes Hx Anesthesia Reactions: No Meds Home Medications: Home Medication List Medication Instructions Recorded Confirmed Type Entecavir [Baraclude] 0.5 mg PO Q48H #14 01/08/18 Rx Allergies/Adverse Reactions: Allergies Allergy/AdvReac Type Severity Reaction Status Date / Time No Known Allergies Allergy Verified 01/07/18 13:48 - Medications Medications: Current Medications Acetylcysteine (Acetylcysteine 20%) 2 ml INH RBID [facility] Last Admin: 01/09/18 07:26 Dose: 2 ml Albuterol/Ipratropium (Duoneb 3 Mg/0.5 Mg (3 Ml) Ud) 3 ml INH RQ6 [facility] Last Admin: 01/09/18 07:26 Dose: 3 ml Alprazolam (Xanax) 0.5 mg PO BID PRN PRN Reason: Anxiety Last Admin: 01/08/18 21:49 Dose: 0.5 mg Apixaban (Eliquis) 2.5 mg PO BID [facility]; Protocol Last Admin: 01/09/18 08:38 Dose: 2.5 mg Atorvastatin Calcium (Lipitor) 10 mg PO DAILY [facility] Last Admin: 01/08/18 10:03 Dose: 10 mg Benzocaine/Menthol (Cepacol Sore Throat) 1 cordell PO Q3 PRN PRN Reason: Sore Throat Last Admin: 01/08/18 10:06 Dose: 1 cordell Bumetanide (Bumex) 2 mg IVP Q12 [facility] Last Admin: 01/09/18 08:31 Dose: 2 mg Calcium Acetate (Phoslo) 667 mg PO TID [facility] Last Admin: 01/09/18 08:38 Dose: 667 mg Carvedilol (Coreg) 12.5 mg PO Q12 [facility] Last Admin: 01/09/18 08:35 Dose: 12.5 mg Famotidine (Pepcid) 20 mg PO BID [facility] Last Admin: 01/09/18 08:35 Dose: 20 mg Home Med (Entecavir [Baraclude]) 0.5 mg PO Q48H [facility] Ceftriaxone Sodium 1 gm/ (Sodium Chloride) 100 mls @ 100 mls/hr IVPB DAILY [facility]; Protocol Last Admin: 01/09/18 08:43 Dose: 100 mls/hr Dobutamine HCl/Dextrose (Dobutamine/Dextrose 5% 500mg/250ml) 500 mg in 250 mls @ 9.389 mls/hr IV .Q24H [facility]; Protocol Dobutamine HCl/Dextrose (Dobutamine/Dextrose 5% 500mg/250ml) 500 mg in 250 mls @ 9.389 mls/hr IV .Q24H [facility]; Protocol Last Admin: 01/08/18 22:05 Dose: 5 mcg/kg/min, 9.389 mls/hr Oxycodone/Acetaminophen (Percocet 5/325 Mg Tab) 1 tab PO Q4 PRN PRN Reason: Pain, moderate (4-7) Stop: 01/10/18 23:48 Phenol/Menthol (Phenaseptic 1.4% Throat [place]) 1 spry MT Q6 [facility] Tacrolimus (Prograf Cap) 0.5 mg PO HS [facility] Last Admin: 01/08/18 21:25 Dose: 0.5 mg Tacrolimus (Prograf Cap) 1 mg PO HS [facility] Last Admin: 01/08/18 21:25 Dose: 1 mg Zolpidem Tartrate (Ambien) 5 mg PO HS PRN PRN Reason: Insomnia Last Admin: 01/08/18 21:49 Dose: 5 mg Physical Exam - Constitutional Appears: No Acute Distress, Chronically Ill - Head Exam Head Exam: ATRAUMATIC, NORMAL INSPECTION, NORMOCEPHALIC - Eye Exam Eye Exam: PERRL. absent: Scleral icterus - ENT Exam ENT Exam: Mucous Membranes Dry, Normal External Ear Exam - Neck Exam Neck exam: Negative for: Lymphadenopathy - Respiratory Exam Respiratory Exam: Decreased Breath Sounds, Prolonged Expiratory Phase, Rales, Rhonchi - Cardiovascular Exam Cardiovascular Exam: REGULAR RHYTHM, +S1 - GI/Abdominal Exam GI & Abdominal Exam: Diminished Bowel Sounds, Soft. absent: Rebound, Rigid, Tenderness - Rectal Exam Rectal Exam: Deferred - Exam Exam: NORMAL INSPECTION - Extremities Exam Extremities exam: Positive for: pedal edema, pedal pulses present. Negative for: calf tenderness, tenderness - Back Exam Back exam: absent: CVA tenderness (L), CVA tenderness (R) - Neurological Exam Neurological exam: Alert, CN II-XII Intact, Oriented x3, Reflexes Normal - Psychiatric Exam Psychiatric exam: Depressed - Skin Skin Exam: Dry Results - Vital Signs Recent Vital Signs: Last Vital Signs Temp 98.1 F 01/09/18 11:55 Pulse 70 01/09/18 11:55 Resp 18 01/09/18 11:55 BP 145/95 H 01/09/18 11:55 Pulse Ox 95 01/09/18 11:55 - Labs Result Diagrams: 01/09/18 04:28 01/09/18 04:28 Labs: Laboratory Results - last 24 hr 01/09/18 01/09/18 04:28 04:28 WBC 6.4 RBC 4.55 Hgb 13.2 Hct 40.6 MCV 89.2 MCH 29.0 MCHC 32.5 L RDW 15.1 H Plt Count 152 MPV 9.7 Neut % (Auto) 72.4 Lymph % (Auto) 15.7 L [place] % (Auto) 8.9 Eos % (Auto) 2.5 Baso % (Auto) 0.5 Neut # (Auto) 4.6 Lymph # (Auto) 1.0 [place] # (Auto) 0.6 Eos # (Auto) 0.2 Baso # (Auto) 0.0 Sodium 141 Potassium 3.5 L Chloride 102 Carbon Dioxide 29 Anion Gap 14 BUN 52 H Creatinine 3.5 H Est GFR ( Amer) 21 Est GFR (Non-Af Amer) 18 Random Glucose 87 Calcium 9.3 Magnesium 1.5 L NT-Pro-B Natriuret Pep 12265 H Assessment & Plan (1) ARF (acute renal failure) Status: Acute (2) Acute on chronic combined systolic and diastolic congestive heart failure Status: Acute (3) Chronic atrial fibrillation Status: Acute (4) Chronic kidney disease, stage V Status: Acute (5) Liver transplant disorder Status: Acute (6) S/P placement of cardiac pacemaker Status: Acute - Assessment and Plan (Free Text) Assessment: cont rx pneumonia IV rx in progress cultures so far negative will check T cells
[2018-01-09] MEDS ORDERED: Sodium Chloride 3% for Inhalation 4 ML VIAL.NEB IH PRN (14:05)
[2018-01-09] MEDS: Benzocaine/Menthol (Cepacol) Lozenge PO PRN (14:06)
[2018-01-09] MEDS ORDERED: DOBUTamine 500mg/250ml D5W 500 MG/250 ML BAG IV SCH (15:15)
[2018-01-09] MEDS: Phenol 1.4% Throat Spray MT SCH ×2 (16:46→22:10)
[2018-01-09 20:48] LABS: HEPATITIS B SURFACE AG Negative (NEGATIVE)
[2018-01-09 20:53] LABS: HEPATITIS A IGM NEGATIVE (NEGATIVE); HEPATITIS B CORE AB NEGATIVE (NEGATIVE)
[2018-01-09 21:04] LABS: LEGIONELLA AG URINE NEGATIVE (NEGATIVE)
[2018-01-09 21:05] LABS: HEPATITIS C ANTIBODY NEGATIVE (NEGATIVE)
[2018-01-09 21:22] LABS: MYCOPLASMA PNEUMONIAE IGM NEGATIVE (NEGATIVE)
[2018-01-10] MEDS: Albuterol-Ipratrop 3 mg / 0.5 (3 ml) UD INH SCH ×4 (01:00→19:37)
[2018-01-10] MEDS: Phenol 1.4% Throat Spray MT SCH ×5 (04:35→21:56)
[2018-01-10] MEDS: Acetylcysteine 20% Inhal Soln (4ml) INH SCH ×2 (07:42→19:37)
--- NOTE | 2018-01-10 09:56 | CP.PCM.PN ---
Subjective - Subjective Subjective: STILL VERY WEAK COUGHING AND C/O SORETHROAT AND SOB NO CHEST PAINS Objective - Vital Signs/Intake and Output Vital Signs (last 24 hours): Temp Pulse Resp BP Pulse Ox 97.8 F 69 19 151/93 H 95 01/10/18 07:58 01/10/18 09:17 01/10/18 07:58 01/10/18 09:17 01/10/18 07:58 - Medications Medications: Current Medications Acetylcysteine (Acetylcysteine 20%) 2 ml INH RBID [facility] Last Admin: 01/10/18 07:42 Dose: 2 ml Albuterol/Ipratropium (Duoneb 3 Mg/0.5 Mg (3 Ml) Ud) 3 ml INH RQ6 [facility] Last Admin: 01/10/18 07:43 Dose: 3 ml Alprazolam (Xanax) 0.5 mg PO BID PRN PRN Reason: Anxiety Last Admin: 01/08/18 21:49 Dose: 0.5 mg Apixaban (Eliquis) 2.5 mg PO BID [facility]; Protocol Last Admin: 01/10/18 09:15 Dose: 2.5 mg Atorvastatin Calcium (Lipitor) 10 mg PO DAILY [facility] Last Admin: 01/10/18 09:15 Dose: 10 mg Benzocaine/Menthol (Cepacol Sore Throat) 1 cordell PO Q3 PRN PRN Reason: Sore Throat Last Admin: 01/09/18 14:06 Dose: 1 cordell Bumetanide (Bumex) 2 mg IVP Q12 [facility] Last Admin: 01/09/18 22:09 Dose: 2 mg Calcium Acetate (Phoslo) 667 mg PO TID [facility] Last Admin: 01/10/18 09:14 Dose: 667 mg Carvedilol (Coreg) 12.5 mg PO Q12 [facility] Last Admin: 01/10/18 09:17 Dose: 12.5 mg Famotidine (Pepcid) 20 mg PO BID [facility] Last Admin: 01/10/18 09:15 Dose: 20 mg Home Med (Entecavir [Baraclude]) 0.5 mg PO Q48H [facility] Ceftriaxone Sodium 1 gm/ (Sodium Chloride) 100 mls @ 100 mls/hr IVPB DAILY [facility]; Protocol Last Admin: 01/10/18 09:16 Dose: 100 mls/hr Dobutamine HCl/Dextrose (Dobutamine/Dextrose 5% 500mg/250ml) 500 mg in 250 mls @ 15.989 mls/hr IV .[id number] [facility]; Protocol Last Admin: 01/09/18 17:12 Dose: 5 mcg/kg/min, 15.989 mls/hr Oxycodone/Acetaminophen (Percocet 5/325 Mg Tab) 1 tab PO Q4 PRN PRN Reason: Pain, moderate (4-7) Stop: 01/10/18 23:48 Phenol/Menthol (Phenaseptic 1.4% Throat [place]) 1 spry MT Q6 [facility] Last Admin: 01/10/18 09:21 Dose: Not Given Tacrolimus (Prograf Cap) 0.5 mg PO HS [facility] Last Admin: 01/09/18 22:10 Dose: 0.5 mg Tacrolimus (Prograf Cap) 1 mg PO HS [facility] Last Admin: 01/09/18 22:10 Dose: 1 mg Zolpidem Tartrate (Ambien) 5 mg PO HS PRN PRN Reason: Insomnia Last Admin: 01/09/18 22:10 Dose: 5 mg - Labs Labs: 01/09/18 04:28 01/09/18 04:28 PT 15.2 Seconds (9.8-13.1) H 01/07/18 15:33 INR 1.3 01/07/18 15:33 APTT 36.8 Seconds (25.6-37.1) 01/07/18 15:33 - Constitutional Appears: Chronically Ill - Head Exam Head Exam: ATRAUMATIC, NORMAL INSPECTION, NORMOCEPHALIC - Eye Exam Eye Exam: EOMI, Normal appearance, PERRL Pupil Exam: NORMAL ACCOMODATION, PERRL - ENT Exam ENT Exam: Mucous Membranes Moist, Normal Exam - Neck Exam Neck Exam: Full ROM, Normal Inspection. absent: Lymphadenopathy - Respiratory Exam Respiratory Exam: Decreased Breath Sounds, Prolonged Expiratory Phase, Rales, Wheezes, NORMAL BREATHING PATTERN Additional comments: ON [place] O2 - Cardiovascular Exam Cardiovascular Exam: REGULAR RHYTHM, +S1, +S2. absent: Murmur - GI/Abdominal Exam GI & Abdominal Exam: Soft, Normal Bowel Sounds. absent: Tenderness - Rectal Exam Rectal Exam: NORMAL INSPECTION - Extremities Exam Extremities Exam: Full ROM, Pedal Edema. absent: Joint Swelling - Back Exam Back Exam: NORMAL INSPECTION - Neurological Exam Neurological Exam: Alert, Awake, CN II-XII Intact, Normal Gait, Oriented x3 - Psychiatric Exam Psychiatric exam: Flat Affect - Skin Skin Exam: Dry, Intact, Normal Color, Warm Assessment and Plan - Assessment and Plan (Free Text) Assessment: CHF PNEUMONIA KIDNEY FAILURE Plan: CONTINUE CURRENT RX
--- NOTE | 2018-01-10 10:04 | CP.PCM.PN ---
Subjective - Subjective Subjective: WEAK STILL COUGHING AND DYSPNEIC HOARSE NO CHEST PAINS Objective - Vital Signs/Intake and Output Vital Signs (last 24 hours): Temp Pulse Resp BP Pulse Ox 97.8 F 69 19 151/93 H 95 01/10/18 07:58 01/10/18 09:17 01/10/18 07:58 01/10/18 09:17 01/10/18 07:58 - Medications Medications: Current Medications Acetylcysteine (Acetylcysteine 20%) 2 ml INH RBID [facility] Last Admin: 01/10/18 07:42 Dose: 2 ml Albuterol/Ipratropium (Duoneb 3 Mg/0.5 Mg (3 Ml) Ud) 3 ml INH RQ6 [facility] Last Admin: 01/10/18 07:43 Dose: 3 ml Alprazolam (Xanax) 0.5 mg PO BID PRN PRN Reason: Anxiety Last Admin: 01/08/18 21:49 Dose: 0.5 mg Apixaban (Eliquis) 2.5 mg PO BID [facility]; Protocol Last Admin: 01/10/18 09:15 Dose: 2.5 mg Atorvastatin Calcium (Lipitor) 10 mg PO DAILY [facility] Last Admin: 01/10/18 09:15 Dose: 10 mg Benzocaine/Menthol (Cepacol Sore Throat) 1 cordell PO Q3 PRN PRN Reason: Sore Throat Last Admin: 01/09/18 14:06 Dose: 1 cordell Bumetanide (Bumex) 2 mg IVP Q12 [facility] Last Admin: 01/09/18 22:09 Dose: 2 mg Calcium Acetate (Phoslo) 667 mg PO TID [facility] Last Admin: 01/10/18 09:14 Dose: 667 mg Carvedilol (Coreg) 12.5 mg PO Q12 [facility] Last Admin: 01/10/18 09:17 Dose: 12.5 mg Famotidine (Pepcid) 20 mg PO BID [facility] Last Admin: 01/10/18 09:15 Dose: 20 mg Home Med (Entecavir [Baraclude]) 0.5 mg PO Q48H [facility] Ceftriaxone Sodium 1 gm/ (Sodium Chloride) 100 mls @ 100 mls/hr IVPB DAILY [facility]; Protocol Last Admin: 01/10/18 09:16 Dose: 100 mls/hr Dobutamine HCl/Dextrose (Dobutamine/Dextrose 5% 500mg/250ml) 500 mg in 250 mls @ 15.989 mls/hr IV .[id number] [facility]; Protocol Last Admin: 01/09/18 17:12 Dose: 5 mcg/kg/min, 15.989 mls/hr Oxycodone/Acetaminophen (Percocet 5/325 Mg Tab) 1 tab PO Q4 PRN PRN Reason: Pain, moderate (4-7) Stop: 01/10/18 23:48 Phenol/Menthol (Phenaseptic 1.4% Throat [place]) 1 spry MT Q6 [facility] Last Admin: 01/10/18 09:21 Dose: Not Given Tacrolimus (Prograf Cap) 0.5 mg PO HS [facility] Last Admin: 01/09/18 22:10 Dose: 0.5 mg Tacrolimus (Prograf Cap) 1 mg PO HS [facility] Last Admin: 01/09/18 22:10 Dose: 1 mg Zolpidem Tartrate (Ambien) 5 mg PO HS PRN PRN Reason: Insomnia Last Admin: 01/09/18 22:10 Dose: 5 mg - Labs Labs: 01/09/18 04:28 01/09/18 04:28 PT 15.2 Seconds (9.8-13.1) H 01/07/18 15:33 INR 1.3 01/07/18 15:33 APTT 36.8 Seconds (25.6-37.1) 01/07/18 15:33 - Constitutional Appears: Chronically Ill - Head Exam Head Exam: ATRAUMATIC, NORMAL INSPECTION, NORMOCEPHALIC - Eye Exam Eye Exam: EOMI, Normal appearance, PERRL Pupil Exam: NORMAL ACCOMODATION, PERRL - ENT Exam ENT Exam: Mucous Membranes Moist, Normal Exam - Neck Exam Neck Exam: Full ROM, Normal Inspection. absent: Lymphadenopathy - Respiratory Exam Respiratory Exam: Decreased Breath Sounds, Prolonged Expiratory Phase, Rales, Wheezes Additional comments: ON [place] O2 - Cardiovascular Exam Cardiovascular Exam: REGULAR RHYTHM, +S1, +S2. absent: Murmur Additional comments: PACEMAKER IN PLACE - GI/Abdominal Exam GI & Abdominal Exam: Soft, Normal Bowel Sounds. absent: Tenderness - Rectal Exam Rectal Exam: NORMAL INSPECTION - Extremities Exam Extremities Exam: Full ROM, Pedal Edema. absent: Joint Swelling - Back Exam Back Exam: NORMAL INSPECTION - Neurological Exam Neurological Exam: Alert, Awake, CN II-XII Intact, Normal Gait, Oriented x3 - Psychiatric Exam Psychiatric exam: Flat Affect - Skin Skin Exam: Dry, Intact, Normal Color, Warm Assessment and Plan - Assessment and Plan (Free Text) Assessment: ACUTE CHF--SYSTOLIC AND DIASTOLIC DYSFUNCTION CARDIAC ARRYTHMIAS S/P PACEMAKER PLACEMENT ACUTE ON CHRONIC KIDNEY DZ S/P LIVER TRANSPLANT ASHD PNEUMONIA GENERAL DEBILITY Plan: CONTINUE RX ORDERED
--- NOTE | 2018-01-10 10:13 | CP.PCM.PN ---
Subjective - Date & Time of Evaluation Date of Evaluation: 01/10/18 Time of Evaluation: 10:13 - Subjective Subjective: CONTINUES TO COUGH AND FEEL WEAK SOB PERSISTS NO CHEST PAINS STILL HOARSE Objective - Vital Signs/Intake and Output Vital Signs (last 24 hours): Temp Pulse Resp BP Pulse Ox 97.8 F 69 19 151/93 H 95 01/10/18 07:58 01/10/18 09:17 01/10/18 07:58 01/10/18 09:17 01/10/18 07:58 - Medications Medications: Current Medications Acetylcysteine (Acetylcysteine 20%) 2 ml INH RBID [facility] Last Admin: 01/10/18 07:42 Dose: 2 ml Albuterol/Ipratropium (Duoneb 3 Mg/0.5 Mg (3 Ml) Ud) 3 ml INH RQ6 [facility] Last Admin: 01/10/18 07:43 Dose: 3 ml Alprazolam (Xanax) 0.5 mg PO BID PRN PRN Reason: Anxiety Last Admin: 01/08/18 21:49 Dose: 0.5 mg Apixaban (Eliquis) 2.5 mg PO BID [facility]; Protocol Last Admin: 01/10/18 09:15 Dose: 2.5 mg Atorvastatin Calcium (Lipitor) 10 mg PO DAILY [facility] Last Admin: 01/10/18 09:15 Dose: 10 mg Benzocaine/Menthol (Cepacol Sore Throat) 1 cordell PO Q3 PRN PRN Reason: Sore Throat Last Admin: 01/09/18 14:06 Dose: 1 cordell Bumetanide (Bumex) 2 mg IVP Q12 [facility] Last Admin: 01/09/18 22:09 Dose: 2 mg Calcium Acetate (Phoslo) 667 mg PO TID [facility] Last Admin: 01/10/18 09:14 Dose: 667 mg Carvedilol (Coreg) 12.5 mg PO Q12 [facility] Last Admin: 01/10/18 09:17 Dose: 12.5 mg Famotidine (Pepcid) 20 mg PO BID [facility] Last Admin: 01/10/18 09:15 Dose: 20 mg Home Med (Entecavir [Baraclude]) 0.5 mg PO Q48H [facility] Ceftriaxone Sodium 1 gm/ (Sodium Chloride) 100 mls @ 100 mls/hr IVPB DAILY [facility]; Protocol Last Admin: 01/10/18 09:16 Dose: 100 mls/hr Dobutamine HCl/Dextrose (Dobutamine/Dextrose 5% 500mg/250ml) 500 mg in 250 mls @ 15.989 mls/hr IV .[id number] [facility]; Protocol Last Admin: 01/09/18 17:12 Dose: 5 mcg/kg/min, 15.989 mls/hr Oxycodone/Acetaminophen (Percocet 5/325 Mg Tab) 1 tab PO Q4 PRN PRN Reason: Pain, moderate (4-7) Stop: 01/10/18 23:48 Phenol/Menthol (Phenaseptic 1.4% Throat [place]) 1 spry MT Q6 [facility] Last Admin: 01/10/18 09:21 Dose: Not Given Tacrolimus (Prograf Cap) 0.5 mg PO HS [facility] Last Admin: 01/09/18 22:10 Dose: 0.5 mg Tacrolimus (Prograf Cap) 1 mg PO HS [facility] Last Admin: 01/09/18 22:10 Dose: 1 mg Zolpidem Tartrate (Ambien) 5 mg PO HS PRN PRN Reason: Insomnia Last Admin: 01/09/18 22:10 Dose: 5 mg - Labs Labs: 01/09/18 04:28 01/09/18 04:28 PT 15.2 Seconds (9.8-13.1) H 01/07/18 15:33 INR 1.3 01/07/18 15:33 APTT 36.8 Seconds (25.6-37.1) 01/07/18 15:33 - Constitutional Appears: Chronically Ill - Head Exam Head Exam: ATRAUMATIC, NORMAL INSPECTION, NORMOCEPHALIC - Eye Exam Eye Exam: EOMI, Normal appearance, PERRL Pupil Exam: NORMAL ACCOMODATION, PERRL - ENT Exam ENT Exam: Mucous Membranes Moist, Normal Exam - Neck Exam Neck Exam: Full ROM, Normal Inspection. absent: Lymphadenopathy - Respiratory Exam Respiratory Exam: Decreased Breath Sounds, Prolonged Expiratory Phase, Rales, Wheezes Additional comments: ON NC O2 - Cardiovascular Exam Cardiovascular Exam: REGULAR RHYTHM, +S1, +S2. absent: Murmur Additional comments: PACEMAKER IN PLACE - GI/Abdominal Exam GI & Abdominal Exam: Soft, Normal Bowel Sounds. absent: Tenderness - Rectal Exam Rectal Exam: NORMAL INSPECTION - Extremities Exam Extremities Exam: Full ROM, Pedal Edema. absent: Joint Swelling - Back Exam Back Exam: NORMAL INSPECTION - Neurological Exam Neurological Exam: Alert, Awake, CN II-XII Intact, Normal Gait, Oriented x3 - Psychiatric Exam Psychiatric exam: Flat Affect - Skin Skin Exam: Dry, Intact, Normal Color, Warm Assessment and Plan - Assessment and Plan (Free Text) Assessment: ACUTE ON CHRONIC CHF--DIASTOLIC AND SYSTOLIC DYSFUNCTION CARDIAC ARRYTHMIAS PNEUMONIA S/P LIVER TRANSPLANT ACUTE ON CHRONIC KIDNEY DZ GENERAL DEBILITY Plan: CONTINUE PRESENT RX
[2018-01-10] MEDS ORDERED: Promethazine DM 12.5 mg-30 mg/10 ml Syrup PO PRN (10:14)
--- NOTE | 2018-01-10 15:36 | CP.PCM.PN ---
Subjective - Date & Time of Evaluation Date of Evaluation: 01/10/18 Time of Evaluation: 15:36 Objective - Vital Signs/Intake and Output Vital Signs (last 24 hours): Temp Pulse Resp BP Pulse Ox 97.4 F L 72 18 130/90 95 01/10/18 12:03 01/10/18 12:03 01/10/18 12:03 01/10/18 12:03 01/10/18 12:03 - Medications Medications: Current Medications Acetylcysteine (Acetylcysteine 20%) 2 ml INH RBID [facility] Last Admin: 01/10/18 07:42 Dose: 2 ml Albuterol/Ipratropium (Duoneb 3 Mg/0.5 Mg (3 Ml) Ud) 3 ml INH RQ6 [facility] Last Admin: 01/10/18 13:43 Dose: 3 ml Alprazolam (Xanax) 0.5 mg PO BID PRN PRN Reason: Anxiety Last Admin: 01/08/18 21:49 Dose: 0.5 mg Apixaban (Eliquis) 2.5 mg PO BID [facility]; Protocol Last Admin: 01/10/18 09:15 Dose: 2.5 mg Atorvastatin Calcium (Lipitor) 10 mg PO DAILY [facility] Last Admin: 01/10/18 09:15 Dose: 10 mg Benzocaine/Menthol (Cepacol Sore Throat) 1 cordell PO Q3 PRN PRN Reason: Sore Throat Last Admin: 01/09/18 14:06 Dose: 1 cordell Bumetanide (Bumex) 2 mg IVP Q12 [facility] Last Admin: 01/10/18 11:00 Dose: 2 mg Calcium Acetate (Phoslo) 667 mg PO TID [facility] Last Admin: 01/10/18 14:11 Dose: 667 mg Carvedilol (Coreg) 12.5 mg PO Q12 [facility] Last Admin: 01/10/18 09:17 Dose: 12.5 mg Famotidine (Pepcid) 20 mg PO BID [facility] Last Admin: 01/10/18 09:15 Dose: 20 mg Home Med (Entecavir [Baraclude]) 0.5 mg PO Q48H [facility] Ceftriaxone Sodium 1 gm/ (Sodium Chloride) 100 mls @ 100 mls/hr IVPB DAILY [facility]; Protocol Last Admin: 01/10/18 09:16 Dose: 100 mls/hr Dobutamine HCl/Dextrose (Dobutamine/Dextrose 5% 500mg/250ml) 500 mg in 250 mls @ 15.989 mls/hr IV .[id number] [facility]; Protocol Oxycodone/Acetaminophen (Percocet 5/325 Mg Tab) 1 tab PO Q4 PRN PRN Reason: Pain, moderate (4-7) Stop: 01/10/18 23:48 Phenol/Menthol (Phenaseptic 1.4% Throat [place]) 1 spry MT Q6 [facility] Last Admin: 01/10/18 09:21 Dose: Not Given Promethazine HCl/Dextromethorphan (Phenergan Dm Syrup) 10 ml PO Q6 PRN PRN Reason: Cough Tacrolimus (Prograf Cap) 0.5 mg PO HS [facility] Last Admin: 01/09/18 22:10 Dose: 0.5 mg Tacrolimus (Prograf Cap) 1 mg PO HS [facility] Last Admin: 01/09/18 22:10 Dose: 1 mg Zolpidem Tartrate (Ambien) 5 mg PO HS PRN PRN Reason: Insomnia Last Admin: 01/09/18 22:10 Dose: 5 mg - Labs Labs: 01/09/18 04:28 01/09/18 04:28 PT 15.2 Seconds (9.8-13.1) H 01/07/18 15:33 INR 1.3 01/07/18 15:33 APTT 36.8 Seconds (25.6-37.1) 01/07/18 15:33 Assessment and Plan (1) Acute on chronic combined systolic and diastolic congestive heart failure Status: Acute (2) Medical non-compliance Status: Acute (3) AV junctional bradycardia Status: Acute (4) Chronic kidney disease, stage IV (severe) Status: Acute (5) Liver transplant disorder Status: Acute (6) S/P placement of cardiac pacemaker Status: Acute
[2018-01-10] MEDS: DOBUTamine 500mg/250ml D5W 500 MG/250 ML BAG IV SCH (16:10)
[2018-01-10] MEDS: Benzocaine/Menthol (Cepacol) Lozenge PO PRN (21:45)
[2018-01-11] MEDS: Albuterol-Ipratrop 3 mg / 0.5 (3 ml) UD INH SCH ×5 (03:16→23:39)
[2018-01-11] MEDS: Phenol 1.4% Throat Spray MT SCH ×4 (03:46→22:30)
[2018-01-11] MEDS ORDERED: Albuterol-Ipratrop 3 mg / 0.5 (3 ml) UD INH STA (04:29)
[2018-01-11] MEDS: DOBUTamine 500mg/250ml D5W 500 MG/250 ML BAG IV SCH ×2 (06:20→14:18)
[2018-01-11] MEDS: Acetylcysteine 20% Inhal Soln (4ml) INH SCH ×2 (07:36→19:05)
--- NOTE | 2018-01-11 10:53 | CP.PCM.PN ---
Subjective - Date & Time of Evaluation Date of Evaluation: 01/11/18 Time of Evaluation: 11:02 - Subjective Subjective: C/O LOACK OF SLEEP WANTS TO CHANGE ROOMS BECAUSE HE CLAIMS THAT [facility] FAMILY IS TOO NOISY SOB PERSISTS NO CHEST PAINS Objective - Vital Signs/Intake and Output Vital Signs (last 24 hours): Temp Pulse Resp BP Pulse Ox 97.5 F L 63 18 135/96 H 94 L 01/11/18 07:50 01/11/18 09:29 01/11/18 07:50 01/11/18 09:29 01/11/18 07:50 Intake and Output: 01/11/18 01/11/18 06:59 18:59 Intake Total 250 Balance 250 - Medications Medications: Current Medications Acetylcysteine (Acetylcysteine 20%) 2 ml INH RBID [facility] Last Admin: 01/11/18 07:36 Dose: 2 ml Albuterol/Ipratropium (Duoneb 3 Mg/0.5 Mg (3 Ml) Ud) 3 ml INH RQ6 [facility] Last Admin: 01/11/18 07:36 Dose: 3 ml Alprazolam (Xanax) 0.5 mg PO BID PRN PRN Reason: Anxiety Last Admin: 01/10/18 21:47 Dose: 0.5 mg Apixaban (Eliquis) 2.5 mg PO BID [facility]; Protocol Last Admin: 01/11/18 09:30 Dose: 2.5 mg Atorvastatin Calcium (Lipitor) 10 mg PO DAILY [facility] Last Admin: 01/11/18 09:30 Dose: 10 mg Benzocaine/Menthol (Cepacol Sore Throat) 1 cordell PO Q3 PRN PRN Reason: Sore Throat Last Admin: 01/10/18 21:45 Dose: 1 cordell Bumetanide (Bumex) 2 mg IVP Q12 [facility] Last Admin: 01/11/18 09:31 Dose: 2 mg Calcium Acetate (Phoslo) 667 mg PO TID [facility] Last Admin: 01/11/18 09:30 Dose: 667 mg Carvedilol (Coreg) 12.5 mg PO Q12 [facility] Last Admin: 01/11/18 09:29 Dose: 12.5 mg Famotidine (Pepcid) 20 mg PO BID [facility] Last Admin: 01/11/18 09:30 Dose: 20 mg Home Med (Entecavir [Baraclude]) 0.5 mg PO Q48H [facility] Ceftriaxone Sodium 1 gm/ (Sodium Chloride) 100 mls @ 100 mls/hr IVPB DAILY [facility]; Protocol Last Admin: 01/11/18 09:38 Dose: 100 mls/hr Dobutamine HCl/Dextrose (Dobutamine/Dextrose 5% 500mg/250ml) 500 mg in 250 mls @ 15.989 mls/hr IV .[id number] [facility]; Protocol Last Admin: 01/11/18 06:20 Dose: 4.87 mcg/kg/min, 15.6 mls/hr Phenol/Menthol (Phenaseptic 1.4% Throat [place]) 1 spry MT Q6 [facility] Last Admin: 01/11/18 03:46 Dose: Not Given Promethazine HCl/Dextromethorphan (Phenergan Dm Syrup) 10 ml PO Q6 PRN PRN Reason: Cough Tacrolimus (Prograf Cap) 0.5 mg PO HS [facility] Last Admin: 01/10/18 21:43 Dose: 0.5 mg Tacrolimus (Prograf Cap) 1 mg PO HS [facility] Last Admin: 01/10/18 21:43 Dose: 1 mg Zolpidem Tartrate (Ambien) 5 mg PO HS PRN PRN Reason: Insomnia Last Admin: 01/10/18 21:44 Dose: 5 mg - Labs Labs: 01/09/18 04:28 01/09/18 04:28 PT 15.2 Seconds (9.8-13.1) H 01/07/18 15:33 INR 1.3 01/07/18 15:33 APTT 36.8 Seconds (25.6-37.1) 01/07/18 15:33 - Constitutional Appears: Chronically Ill - Head Exam Head Exam: ATRAUMATIC, NORMAL INSPECTION, NORMOCEPHALIC - Eye Exam Eye Exam: EOMI, Normal appearance, PERRL Pupil Exam: NORMAL ACCOMODATION, PERRL - ENT Exam ENT Exam: Mucous Membranes Moist, Normal Exam - Neck Exam Neck Exam: Full ROM, Normal Inspection. absent: Lymphadenopathy - Respiratory Exam Respiratory Exam: Decreased Breath Sounds, Prolonged Expiratory Phase, Rales, Wheezes Additional comments: ON NC OI2 - Cardiovascular Exam Cardiovascular Exam: REGULAR RHYTHM, +S1, +S2. absent: Murmur Additional comments: PACEMAKER IN PLACE - GI/Abdominal Exam GI & Abdominal Exam: Soft, Normal Bowel Sounds. absent: Tenderness - Rectal Exam Rectal Exam: NORMAL INSPECTION - Extremities Exam Extremities Exam: Full ROM, Pedal Edema. absent: Joint Swelling - Back Exam Back Exam: NORMAL INSPECTION - Neurological Exam Neurological Exam: Alert, Awake, CN II-XII Intact, Normal Gait, Oriented x3 - Psychiatric Exam Psychiatric exam: Flat Affect - Skin Skin Exam: Dry, Intact, Normal Color, Warm Assessment and Plan - Assessment and Plan (Free Text) Assessment: ACUTE CHF--SYSTOLIC AND DIASTOLIC DYSFUNCTION PNEUMONIA ARRYTHMIAS HX OF CHRONIC KIDNEY DZ [facility] GENERAL DEBILITY/DECONDITIONING HX OF LIVER TRANSPLANTATION Plan: CONTINUE IV ANTIBIOTICS AND DIURETICS O2 THERAPY PT DECLINED NEPHROLOGY FOLLOW UP OR DIALYSIS WILL OBTAIN PHYSICAL THERAPY EVAL REASSURED
--- NOTE | 2018-01-11 11:22 | RAD ---
Date of service: 01/11/2018 HISTORY: chf/pneumonia COMPARISON: Portable chest 01/08/2018. FINDINGS: LUNGS: Diminished left perihilar patchy airspace disease. Medial right basilar airspace disease unchanged. PLEURA: No significant pleural effusion identified, no pneumothorax apparent. CARDIOVASCULAR: No aortic atherosclerotic calcification present. Cardiomegaly is not excluded. No pulmonary vascular congestion. Permanent pacemaker reiterated. OSSEOUS STRUCTURES: No significant abnormalities. VISUALIZED UPPER ABDOMEN: Normal. OTHER FINDINGS: None. IMPRESSION: Diminished airspace disease left perihilar region but unchanged at the medial right base. Prominent appearing cardiac silhouette unchanged. No interval pulmonary vascular congestion.
--- NOTE | 2018-01-11 11:30 | PQF ---
PROVIDER RESPONSE TEXT: CHRONIC KIDNEY DISEASE--STAGE 4 REVIEWER QUERY TEXT: Kidney Disease, Chronic CKD Stage Chronic Kidney Disease (CKD) is documented in the Medical Record. Please specify the disease stage ( includes probable or suspected) Such as: -- Chronic kidney disease Stage 1 -- Chronic kidney disease Stage 2 -- Chronic kidney disease Stage 3 -- Chronic kidney disease Stage 4 -- Chronic kidney disease Stage 5 -- Chronic kidney disease Stage 5, requiring dialysis -- End Stage Renal Disease -- Other, please specify Stages are defined by the [employer] as follows: CKD Stage I GFR >= 90 ml / min per 1.73 m2 and persistent albuminuria CKD Stage 2 GFR between 60 and 89 with persistent albuminuria CKD Stage 3 GFR between 30 and 59 CKD Stage 4 GFR between 15 and 29 CKD Stage 5 GFR between <15 or End Stage Renal Disease The patient's Clinical Indicators include: Documentation of Acute on Chronic Kidney Disease. BUN 56, 54, 52 Creatinine : 3.8, 3.7, 3.5 GFR if : 20, 20, 21 GFR if Non : 16, 17, 18 Query created by: Benita Andujar on 01/09/2018 1:16 PM Electronically signed by: Grey Arriaga MD 01/11/2018 11:27 AM
--- NOTE | 2018-01-11 13:16 | CP.PCM.PN ---
Subjective - Date & Time of Evaluation Date of Evaluation: 01/11/18 Time of Evaluation: 08:00 - Subjective Subjective: appears less sob no chest pain minimal cough denies fever Objective - Vital Signs/Intake and Output Vital Signs (last 24 hours): Temp Pulse Resp BP Pulse Ox 97.4 F L 69 18 139/86 93 L 01/11/18 12:02 01/11/18 12:02 01/11/18 12:02 01/11/18 12:02 01/11/18 12:02 Intake and Output: 01/11/18 01/11/18 06:59 18:59 Intake Total 250 Balance 250 - Medications Medications: Current Medications Acetylcysteine (Acetylcysteine 20%) 2 ml INH RBID [facility] Last Admin: 01/11/18 07:36 Dose: 2 ml Albuterol/Ipratropium (Duoneb 3 Mg/0.5 Mg (3 Ml) Ud) 3 ml INH RQ6 [facility] Last Admin: 01/11/18 07:36 Dose: 3 ml Alprazolam (Xanax) 0.5 mg PO BID PRN PRN Reason: Anxiety Last Admin: 01/10/18 21:47 Dose: 0.5 mg Apixaban (Eliquis) 2.5 mg PO BID [facility]; Protocol Last Admin: 01/11/18 09:30 Dose: 2.5 mg Atorvastatin Calcium (Lipitor) 10 mg PO DAILY [facility] Last Admin: 01/11/18 09:30 Dose: 10 mg Benzocaine/Menthol (Cepacol Sore Throat) 1 cordell PO Q3 PRN PRN Reason: Sore Throat Last Admin: 01/10/18 21:45 Dose: 1 cordell Bumetanide (Bumex) 2 mg IVP Q12 [facility] Last Admin: 01/11/18 09:31 Dose: 2 mg Calcium Acetate (Phoslo) 667 mg PO TID [facility] Last Admin: 01/11/18 09:30 Dose: 667 mg Carvedilol (Coreg) 12.5 mg PO Q12 [facility] Last Admin: 01/11/18 09:29 Dose: 12.5 mg Famotidine (Pepcid) 20 mg PO BID [facility] Last Admin: 01/11/18 09:30 Dose: 20 mg Home Med (Entecavir [Baraclude]) 0.5 mg PO Q48H [facility] Ceftriaxone Sodium 1 gm/ (Sodium Chloride) 100 mls @ 100 mls/hr IVPB DAILY [facility]; Protocol Last Admin: 01/11/18 09:38 Dose: 100 mls/hr Dobutamine HCl/Dextrose (Dobutamine/Dextrose 5% 500mg/250ml) 500 mg in 250 mls @ 15.989 mls/hr IV .[id number] [facility]; Protocol Last Admin: 01/11/18 06:20 Dose: 4.87 mcg/kg/min, 15.6 mls/hr Phenol/Menthol (Phenaseptic 1.4% Throat [place]) 1 spry MT Q6 [facility] Last Admin: 01/11/18 03:46 Dose: Not Given Promethazine HCl/Dextromethorphan (Phenergan Dm Syrup) 10 ml PO Q6 PRN PRN Reason: Cough Tacrolimus (Prograf Cap) 0.5 mg PO HS [facility] Last Admin: 01/10/18 21:43 Dose: 0.5 mg Tacrolimus (Prograf Cap) 1 mg PO HS [facility] Last Admin: 01/10/18 21:43 Dose: 1 mg Zolpidem Tartrate (Ambien) 5 mg PO HS PRN PRN Reason: Insomnia Last Admin: 01/10/18 21:44 Dose: 5 mg - Labs Labs: 01/09/18 04:28 01/09/18 04:28 PT 15.2 Seconds (9.8-13.1) H 01/07/18 15:33 INR 1.3 01/07/18 15:33 APTT 36.8 Seconds (25.6-37.1) 01/07/18 15:33 - Constitutional Appears: Non-toxic, Chronically Ill - Head Exam Head Exam: NORMOCEPHALIC - Eye Exam Eye Exam: absent: Scleral icterus - ENT Exam ENT Exam: Mucous Membranes Dry - Neck Exam Neck Exam: absent: Lymphadenopathy - Respiratory Exam Respiratory Exam: Decreased Breath Sounds, Prolonged Expiratory Phase, Rales - Cardiovascular Exam Cardiovascular Exam: REGULAR RHYTHM, +S1, +S2 - GI/Abdominal Exam GI & Abdominal Exam: Distended, Soft. absent: Tenderness - Rectal Exam Rectal Exam: Deferred - Exam Exam: NORMAL INSPECTION - Extremities Exam Extremities Exam: Pedal Edema. absent: Calf Tenderness, Tenderness - Back Exam Back Exam: absent: CVA tenderness (L), CVA tenderness (R) - Neurological Exam Neurological Exam: Alert, Awake, CN II-XII Intact, Oriented x3 Neuro motor strength exam: Left Upper Extremity: 4, Right Upper Extremity: 4, Left Lower Extremity: 4, Right Lower Extremity: 4 - Psychiatric Exam Psychiatric exam: Depressed - Skin Skin Exam: Dry Assessment and Plan (1) ARF (acute renal failure) Status: Acute (2) Acute on chronic combined systolic and diastolic congestive heart failure Status: Acute (3) Chronic atrial fibrillation Status: Acute (4) Chronic kidney disease, stage V Status: Acute (5) Liver transplant disorder Status: Acute (6) S/P placement of cardiac pacemaker Status: Acute - Assessment and Plan (Free Text) Assessment: cont iv rx as ordered
[2018-01-11] MEDS ORDERED: Albuterol-Ipratrop 3 mg / 0.5 (3 ml) UD INH PRN (20:08)
[2018-01-12] MEDS: Albuterol-Ipratrop 3 mg / 0.5 (3 ml) UD INH SCH ×6 (03:49→23:40)
[2018-01-12 06:32] LABS: % CD4 (T HELPER CELL) 42 Percent (30-61); % CD8 (SUPPRESSOR T CELL) 31 Percent (12-42); ABSOLUTE CD4 CELLS 482 Cells/mcL (490-1740); ABSOLUTE CD8 CELLS 360 Cells/mcL (180-1170); ABSOLUTE LYMPHOCYTES 1146 Cells/mcL (850-3900); HELPER/SUPPRESSOR RATIO 1.34 Ratio (0.86-5.00)
[2018-01-12] MEDS: Acetylcysteine 20% Inhal Soln (4ml) INH SCH ×2 (07:51→19:31)
[2018-01-12] MEDS: Phenol 1.4% Throat Spray MT SCH ×3 (10:15→21:08)
--- NOTE | 2018-01-12 10:46 | CP.PCM.PN ---
Subjective - Date & Time of Evaluation Date of Evaluation: 01/12/18 Time of Evaluation: 10:49 - Subjective Subjective: BEGINNING TO COUGH UP THICK SPUTUM STILL SOB ON MILD EXERTION HOARSE Objective - Vital Signs/Intake and Output Vital Signs (last 24 hours): Temp Pulse Resp BP Pulse Ox 97.4 F L 69 20 145/88 91 L 01/12/18 07:46 01/12/18 10:16 01/12/18 07:46 01/12/18 10:16 01/12/18 07:46 - Medications Medications: Current Medications Acetylcysteine (Acetylcysteine 20%) 2 ml INH RBID [facility] Last Admin: 01/12/18 07:51 Dose: 2 ml Albuterol/Ipratropium (Duoneb 3 Mg/0.5 Mg (3 Ml) Ud) 3 ml INH RQ4 PRN PRN Reason: Shortness of Breath Albuterol/Ipratropium (Duoneb 3 Mg/0.5 Mg (3 Ml) Ud) 3 ml INH RQ4 [facility] Last Admin: 01/12/18 07:51 Dose: 3 ml Alprazolam (Xanax) 0.5 mg PO BID PRN PRN Reason: Anxiety Last Admin: 01/11/18 21:41 Dose: 0.5 mg Apixaban (Eliquis) 2.5 mg PO BID [facility]; Protocol Last Admin: 01/12/18 10:15 Dose: 2.5 mg Atorvastatin Calcium (Lipitor) 10 mg PO DAILY [facility] Last Admin: 01/12/18 10:14 Dose: 10 mg Benzocaine/Menthol (Cepacol Sore Throat) 1 cordell PO Q3 PRN PRN Reason: Sore Throat Last Admin: 01/10/18 21:45 Dose: 1 cordell Bumetanide (Bumex) 2 mg IVP Q12 [facility] Last Admin: 01/12/18 10:16 Dose: 2 mg Calcium Acetate (Phoslo) 667 mg PO TID [facility] Last Admin: 01/12/18 10:15 Dose: 667 mg Carvedilol (Coreg) 12.5 mg PO Q12 [facility] Last Admin: 01/12/18 10:16 Dose: 12.5 mg Famotidine (Pepcid) 20 mg PO BID [facility] Last Admin: 01/12/18 10:14 Dose: 20 mg Home Med (Entecavir [Baraclude]) 0.5 mg PO Q48H [facility] Ceftriaxone Sodium 1 gm/ (Sodium Chloride) 100 mls @ 100 mls/hr IVPB DAILY [facility]; Protocol Last Admin: 01/12/18 10:17 Dose: 100 mls/hr Dobutamine HCl/Dextrose (Dobutamine/Dextrose 5% 500mg/250ml) 500 mg in 250 mls @ 15.989 mls/hr IV .[id number] [facility]; Protocol Last Admin: 01/11/18 14:18 Dose: 4.87 mcg/kg/min, 15.6 mls/hr Phenol/Menthol (Phenaseptic 1.4% Throat [place]) 1 spry MT Q6 [facility] Last Admin: 01/12/18 10:15 Dose: Not Given Promethazine HCl/Dextromethorphan (Phenergan Dm Syrup) 10 ml PO Q6 PRN PRN Reason: Cough Tacrolimus (Prograf Cap) 0.5 mg PO HS [facility] Last Admin: 01/11/18 21:35 Dose: 0.5 mg Tacrolimus (Prograf Cap) 1 mg PO HS [facility] Last Admin: 01/11/18 21:35 Dose: 1 mg Zolpidem Tartrate (Ambien) 5 mg PO HS PRN PRN Reason: Insomnia Last Admin: 01/11/18 21:41 Dose: 5 mg - Labs Labs: 01/09/18 04:28 01/09/18 04:28 PT 15.2 Seconds (9.8-13.1) H 01/07/18 15:33 INR 1.3 01/07/18 15:33 APTT 36.8 Seconds (25.6-37.1) 01/07/18 15:33 - Constitutional Appears: Chronically Ill - Head Exam Head Exam: ATRAUMATIC, NORMAL INSPECTION, NORMOCEPHALIC - Eye Exam Eye Exam: EOMI, Normal appearance, PERRL Pupil Exam: NORMAL ACCOMODATION, PERRL - ENT Exam ENT Exam: Mucous Membranes Moist, Normal Exam - Neck Exam Neck Exam: Full ROM, Normal Inspection. absent: Lymphadenopathy - Respiratory Exam Respiratory Exam: Decreased Breath Sounds, Prolonged Expiratory Phase, Rales, NORMAL BREATHING PATTERN - Cardiovascular Exam Cardiovascular Exam: REGULAR RHYTHM, +S1, +S2. absent: Murmur - GI/Abdominal Exam GI & Abdominal Exam: Soft, Normal Bowel Sounds. absent: Tenderness - Rectal Exam Rectal Exam: NORMAL INSPECTION - Extremities Exam Extremities Exam: Full ROM, Pedal Edema. absent: Joint Swelling - Back Exam Back Exam: NORMAL INSPECTION - Neurological Exam Neurological Exam: Abnormal Gait, Alert, Awake, CN II-XII Intact, Oriented x3 - Psychiatric Exam Psychiatric exam: Flat Affect - Skin Skin Exam: Dry, Intact, Normal Color, Warm Assessment and Plan - Assessment and Plan (Free Text) Assessment: ACUTE CHF CHRONIC KIDNEY DZ PNEUMONIA--?ETIOLOGY S/P LIVER TRANSPLANT S/P PERMANENT PACEMAKER PLACEMENT Plan: CONTINUE CURRENT RX PT DECLINED NEPHROLOGY FOLLOWUP OR INTERVENTION INCLUDING DIALYSIS
--- NOTE | 2018-01-12 13:27 | CP.PCM.PN ---
Subjective - Date & Time of Evaluation Date of Evaluation: 01/12/18 Time of Evaluation: 08:00 - Subjective Subjective: slow progress secretions noted IV rx renewed Objective - Vital Signs/Intake and Output Vital Signs (last 24 hours): Temp Pulse Resp BP Pulse Ox 97.4 F L 70 20 143/90 91 L 01/12/18 12:00 01/12/18 12:00 01/12/18 12:00 01/12/18 12:00 01/12/18 12:00 - Medications Medications: Current Medications Acetylcysteine (Acetylcysteine 20%) 2 ml INH RBID [facility] Last Admin: 01/12/18 07:51 Dose: 2 ml Albuterol/Ipratropium (Duoneb 3 Mg/0.5 Mg (3 Ml) Ud) 3 ml INH RQ4 PRN PRN Reason: Shortness of Breath Albuterol/Ipratropium (Duoneb 3 Mg/0.5 Mg (3 Ml) Ud) 3 ml INH RQ4 [facility] Last Admin: 01/12/18 11:21 Dose: 3 ml Alprazolam (Xanax) 0.5 mg PO BID PRN PRN Reason: Anxiety Last Admin: 01/11/18 21:41 Dose: 0.5 mg Apixaban (Eliquis) 2.5 mg PO BID [facility]; Protocol Last Admin: 01/12/18 10:15 Dose: 2.5 mg Atorvastatin Calcium (Lipitor) 10 mg PO DAILY [facility] Last Admin: 01/12/18 10:14 Dose: 10 mg Benzocaine/Menthol (Cepacol Sore Throat) 1 cordell PO Q3 PRN PRN Reason: Sore Throat Last Admin: 01/10/18 21:45 Dose: 1 cordell Bumetanide (Bumex) 2 mg IVP Q12 [facility] Last Admin: 01/12/18 10:16 Dose: 2 mg Calcium Acetate (Phoslo) 667 mg PO TID [facility] Last Admin: 01/12/18 10:15 Dose: 667 mg Carvedilol (Coreg) 12.5 mg PO Q12 [facility] Last Admin: 01/12/18 10:16 Dose: 12.5 mg Famotidine (Pepcid) 20 mg PO BID [facility] Last Admin: 01/12/18 10:14 Dose: 20 mg Home Med (Entecavir [Baraclude]) 0.5 mg PO Q48H [facility] Ceftriaxone Sodium 1 gm/ (Sodium Chloride) 100 mls @ 100 mls/hr IVPB DAILY [facility]; Protocol Last Admin: 01/12/18 10:17 Dose: 100 mls/hr Dobutamine HCl/Dextrose (Dobutamine/Dextrose 5% 500mg/250ml) 500 mg in 250 mls @ 15.989 mls/hr IV .[id number] [facility]; Protocol Last Admin: 01/11/18 14:18 Dose: 4.87 mcg/kg/min, 15.6 mls/hr Phenol/Menthol (Phenaseptic 1.4% Throat [place]) 1 spry MT Q6 [facility] Last Admin: 01/12/18 10:15 Dose: Not Given Promethazine HCl/Dextromethorphan (Phenergan Dm Syrup) 10 ml PO Q6 PRN PRN Reason: Cough Tacrolimus (Prograf Cap) 0.5 mg PO HS [facility] Last Admin: 01/11/18 21:35 Dose: 0.5 mg Tacrolimus (Prograf Cap) 1 mg PO HS [facility] Last Admin: 01/11/18 21:35 Dose: 1 mg Zolpidem Tartrate (Ambien) 5 mg PO HS PRN PRN Reason: Insomnia Last Admin: 01/11/18 21:41 Dose: 5 mg - Labs Labs: 01/09/18 04:28 01/09/18 04:28 PT 15.2 Seconds (9.8-13.1) H 01/07/18 15:33 INR 1.3 01/07/18 15:33 APTT 36.8 Seconds (25.6-37.1) 01/07/18 15:33 - Constitutional Appears: Non-toxic, Chronically Ill - Head Exam Head Exam: NORMOCEPHALIC - Eye Exam Eye Exam: absent: Scleral icterus - ENT Exam ENT Exam: Mucous Membranes Dry - Neck Exam Neck Exam: absent: Lymphadenopathy - Respiratory Exam Respiratory Exam: Decreased Breath Sounds, Rhonchi - Cardiovascular Exam Cardiovascular Exam: REGULAR RHYTHM - GI/Abdominal Exam GI & Abdominal Exam: Distended, Soft - Rectal Exam Rectal Exam: Deferred - Exam Exam: NORMAL INSPECTION - Extremities Exam Extremities Exam: absent: Pedal Edema - Back Exam Back Exam: absent: CVA tenderness (L), CVA tenderness (R) - Neurological Exam Neurological Exam: Alert, Awake, Oriented x3 - Psychiatric Exam Psychiatric exam: Depressed - Skin Skin Exam: Dry Assessment and Plan (1) ARF (acute renal failure) Status: Acute (2) Acute on chronic combined systolic and diastolic congestive heart failure Status: Acute (3) Chronic atrial fibrillation Status: Acute (4) Chronic kidney disease, stage V Status: Acute (5) Liver transplant disorder Status: Acute (6) S/P placement of cardiac pacemaker Status: Acute - Assessment and Plan (Free Text) Assessment: cont iv rx bronchopneumonia / COPD
[2018-01-13] MEDS: Albuterol-Ipratrop 3 mg / 0.5 (3 ml) UD INH SCH ×7 (03:51→23:03)
[2018-01-13] MEDS: Phenol 1.4% Throat Spray MT SCH ×2 (04:00→09:50)
[2018-01-13 06:36] LABS: BASO % 0.3 % (0.0-2.0); EOS # 0.1 K/uL (0.0-0.7); EOS % 1.4 % (0.0-4.0); LYMPH # 0.9 K/uL (1.0-4.3); LYMPH % 9.9 % (20.0-40.0); MEAN CELL VOLUME 88.9 fl (80.0-94.0); MEAN CORPUSCULAR HEMOGLOBIN 29.1 pg (27.0-31.0); MEAN CORPUSCULAR HGB CONC 32.7 g/dL (33.0-37.0); MEAN PLATELET VOLUME 10.9 fl (7.2-11.7); MONO # 0.7 K/uL (0.0-0.8); MONO % 7.4 % (0.0-10.0); NEUT # 7.8 K/uL (1.8-7.0); NRBC % 0.2 % (0.0-0.0); RBC 4.83 Mil/uL (4.40-5.90); RED CELL DISTRIBUTION WIDTH 14.7 % (11.5-14.5); WHITE BLOOD COUNT 9.6 K/uL (4.8-10.8)
[2018-01-13 06:41] LABS: ALB/GLOB RATIO 1.1 (1.0-2.1); ALBUMIN 3.8 g/dL (3.5-5.0); CALCIUM 9.3 mg/dL (8.4-10.2)
[2018-01-13 06:43] LABS: PLATELET COUNT 123 K/uL (130-400)
[2018-01-13 07:29] LABS: EOSINOPHIL 2 % (0-7); LYMPHOCYTE 9 % (20-50); MONOCYTE 6 % (0-10); NEUTROPHIL 83 % (42-75); PLATELET ESTIMATE DECREASED (NORMAL); TOTAL CELLS COUNTED 100
[2018-01-13] MEDS: Acetylcysteine 20% Inhal Soln (4ml) INH SCH ×2 (09:16→19:50)
--- NOTE | 2018-01-13 13:02 | CP.PCM.PN ---
Subjective - Date & Time of Evaluation Date of Evaluation: 01/13/18 Time of Evaluation: 13:03 - Subjective Subjective: COUGH IMPROVING SOB IMPROVING NO CHEST PAINS STILL VERY WEAK Objective - Vital Signs/Intake and Output Vital Signs (last 24 hours): Temp Pulse Resp BP Pulse Ox 98.0 F 72 20 111/73 91 L 01/13/18 08:00 01/13/18 08:44 01/13/18 08:00 01/13/18 08:44 01/13/18 08:00 Intake and Output: 01/13/18 01/13/18 06:59 18:59 Intake Total 240 Output Total 200 Balance 40 - Medications Medications: Current Medications Acetylcysteine (Acetylcysteine 20%) 2 ml INH RBID [facility] Last Admin: 01/13/18 09:16 Dose: Not Given Albuterol/Ipratropium (Duoneb 3 Mg/0.5 Mg (3 Ml) Ud) 3 ml INH RQ4 PRN PRN Reason: Shortness of Breath Albuterol/Ipratropium (Duoneb 3 Mg/0.5 Mg (3 Ml) Ud) 3 ml INH RQ4 [facility] Last Admin: 01/13/18 11:26 Dose: 3 ml Alprazolam (Xanax) 0.5 mg PO BID PRN PRN Reason: Anxiety Last Admin: 01/12/18 21:36 Dose: 0.5 mg Apixaban (Eliquis) 2.5 mg PO BID [facility]; Protocol Last Admin: 01/13/18 08:41 Dose: 2.5 mg Atorvastatin Calcium (Lipitor) 10 mg PO DAILY [facility] Last Admin: 01/13/18 08:41 Dose: 10 mg Benzocaine/Menthol (Cepacol Sore Throat) 1 cordell PO Q3 PRN PRN Reason: Sore Throat Last Admin: 01/10/18 21:45 Dose: 1 cordell Bumetanide (Bumex) 2 mg IVP Q12 [facility] Last Admin: 01/13/18 08:42 Dose: 2 mg Calcium Acetate (Phoslo) 667 mg PO TID [facility] Last Admin: 01/13/18 12:54 Dose: 667 mg Carvedilol (Coreg) 12.5 mg PO Q12 [facility] Last Admin: 01/13/18 08:44 Dose: 12.5 mg Famotidine (Pepcid) 20 mg PO BID [facility] Last Admin: 01/13/18 08:40 Dose: 20 mg Home Med (Entecavir [Baraclude]) 0.5 mg PO Q48H [facility] Ceftriaxone Sodium 1 gm/ (Sodium Chloride) 100 mls @ 100 mls/hr IVPB DAILY [facility]; Protocol Last Admin: 01/13/18 08:29 Dose: 100 mls/hr Promethazine HCl/Dextromethorphan (Phenergan Dm Syrup) 10 ml PO Q6 PRN PRN Reason: Cough Tacrolimus (Prograf Cap) 0.5 mg PO HS [facility] Last Admin: 01/12/18 21:15 Dose: 0.5 mg Tacrolimus (Prograf Cap) 1 mg PO HS [facility] Last Admin: 01/12/18 21:15 Dose: 1 mg Zolpidem Tartrate (Ambien) 5 mg PO HS PRN PRN Reason: Insomnia Last Admin: 01/12/18 21:36 Dose: 5 mg - Labs Labs: 01/13/18 05:46 01/13/18 05:46 PT 15.2 Seconds (9.8-13.1) H 01/07/18 15:33 INR 1.3 01/07/18 15:33 APTT 36.8 Seconds (25.6-37.1) 01/07/18 15:33 - Constitutional Appears: Chronically Ill - Head Exam Head Exam: ATRAUMATIC, NORMAL INSPECTION, NORMOCEPHALIC - Eye Exam Eye Exam: EOMI, Normal appearance, PERRL Pupil Exam: NORMAL ACCOMODATION, PERRL - ENT Exam ENT Exam: Mucous Membranes Moist, Normal Exam - Neck Exam Neck Exam: Full ROM, Normal Inspection. absent: Lymphadenopathy - Respiratory Exam Respiratory Exam: Decreased Breath Sounds, Prolonged Expiratory Phase, Rales, NORMAL BREATHING PATTERN - Cardiovascular Exam Cardiovascular Exam: REGULAR RHYTHM, +S1, +S2. absent: Murmur - GI/Abdominal Exam GI & Abdominal Exam: Soft, Normal Bowel Sounds. absent: Tenderness - Rectal Exam Rectal Exam: NORMAL INSPECTION - Extremities Exam Extremities Exam: Full ROM, Normal Capillary Refill, Normal Inspection. absent: Joint Swelling, Pedal Edema - Back Exam Back Exam: NORMAL INSPECTION - Neurological Exam Neurological Exam: Alert, Awake, CN II-XII Intact, Normal Gait, Oriented x3 - Psychiatric Exam Psychiatric exam: Normal Affect, Normal Mood - Skin Skin Exam: Dry, Intact, Normal Color, Warm Assessment and Plan - Assessment and Plan (Free Text) Assessment: CHF PNEUMONIA ASHD GENERAL DEBILITY CHRONIC KIDNEY DZ HX OF LIVER TRANSPLANT AND BRAIN LESION IN THE PAST Plan: CONTINUE CURRENT RX WILL BENEFIT FROM TCU/SUBACUTE CARE PT/OT
[2018-01-14] MEDS: Albuterol-Ipratrop 3 mg / 0.5 (3 ml) UD INH SCH ×4 (04:48→15:32)
[2018-01-14] MEDS: Acetylcysteine 20% Inhal Soln (4ml) INH SCH (07:28)
--- NOTE | 2018-01-14 08:23 | CP.PCM.PN ---
Subjective - Date & Time of Evaluation Date of Evaluation: 01/14/18 Time of Evaluation: 08:25 - Subjective Subjective: LESS COUGH/SOB NO CHEST PAINS VSS APPETITE STILL POOR STILL HAS SORETHROAT AND FEELS WEAK GAIT UNSTEADY Objective - Vital Signs/Intake and Output Vital Signs (last 24 hours): Temp Pulse Resp BP Pulse Ox 97.9 F 70 20 124/87 95 01/14/18 05:00 01/14/18 05:00 01/14/18 05:00 01/14/18 05:00 01/14/18 05:00 - Medications Medications: Current Medications Acetylcysteine (Acetylcysteine 20%) 2 ml INH RBID [facility] Last Admin: 01/14/18 07:28 Dose: 2 ml Albuterol/Ipratropium (Duoneb 3 Mg/0.5 Mg (3 Ml) Ud) 3 ml INH RQ4 PRN PRN Reason: Shortness of Breath Albuterol/Ipratropium (Duoneb 3 Mg/0.5 Mg (3 Ml) Ud) 3 ml INH RQ4 [facility] Last Admin: 01/14/18 07:28 Dose: 3 ml Alprazolam (Xanax) 0.5 mg PO BID PRN PRN Reason: Anxiety Last Admin: 01/13/18 21:50 Dose: 0.5 mg Apixaban (Eliquis) 2.5 mg PO BID [facility]; Protocol Last Admin: 01/13/18 16:41 Dose: 2.5 mg Atorvastatin Calcium (Lipitor) 10 mg PO DAILY [facility] Last Admin: 01/13/18 08:41 Dose: 10 mg Benzocaine/Menthol (Cepacol Sore Throat) 1 cordell PO Q3 PRN PRN Reason: Sore Throat Last Admin: 01/10/18 21:45 Dose: 1 cordell Bumetanide (Bumex) 2 mg IVP Q12 [facility] Last Admin: 01/13/18 21:33 Dose: 2 mg Calcium Acetate (Phoslo) 667 mg PO TID [facility] Last Admin: 01/13/18 16:41 Dose: 667 mg Carvedilol (Coreg) 12.5 mg PO Q12 [facility] Last Admin: 01/13/18 21:32 Dose: 12.5 mg Famotidine (Pepcid) 20 mg PO BID [facility] Last Admin: 01/13/18 16:41 Dose: 20 mg Home Med (Entecavir [Baraclude]) 0.5 mg PO Q48H [facility] Ceftriaxone Sodium 1 gm/ (Sodium Chloride) 100 mls @ 100 mls/hr IVPB DAILY [facility]; Protocol Last Admin: 01/13/18 08:29 Dose: 100 mls/hr Promethazine HCl/Dextromethorphan (Phenergan Dm Syrup) 10 ml PO Q6 PRN PRN Reason: Cough Tacrolimus (Prograf Cap) 0.5 mg PO HS [facility] Last Admin: 01/13/18 21:28 Dose: 0.5 mg Tacrolimus (Prograf Cap) 1 mg PO HS [facility] Last Admin: 01/13/18 21:28 Dose: 1 mg Zolpidem Tartrate (Ambien) 5 mg PO HS PRN PRN Reason: Insomnia Last Admin: 01/13/18 21:50 Dose: 5 mg - Labs Labs: 01/13/18 05:46 01/13/18 05:46 PT 15.2 Seconds (9.8-13.1) H 01/07/18 15:33 INR 1.3 01/07/18 15:33 APTT 36.8 Seconds (25.6-37.1) 01/07/18 15:33 - Constitutional Appears: No Acute Distress, Chronically Ill - Head Exam Head Exam: ATRAUMATIC, NORMAL INSPECTION, NORMOCEPHALIC - Eye Exam Eye Exam: EOMI, Normal appearance, PERRL Pupil Exam: NORMAL ACCOMODATION, PERRL - ENT Exam ENT Exam: Mucous Membranes Moist, Normal Exam - Neck Exam Neck Exam: Full ROM, Normal Inspection. absent: Lymphadenopathy - Respiratory Exam Respiratory Exam: Decreased Breath Sounds, Prolonged Expiratory Phase, Rales, NORMAL BREATHING PATTERN - Cardiovascular Exam Cardiovascular Exam: REGULAR RHYTHM, +S1, +S2. absent: Murmur - GI/Abdominal Exam GI & Abdominal Exam: Soft, Normal Bowel Sounds. absent: Tenderness - Rectal Exam Rectal Exam: NORMAL INSPECTION - Extremities Exam Extremities Exam: Full ROM, Normal Capillary Refill, Normal Inspection. absent: Joint Swelling, Pedal Edema - Back Exam Back Exam: NORMAL INSPECTION - Neurological Exam Neurological Exam: Abnormal Gait, Alert, Awake, CN II-XII Intact, Oriented x3 - Psychiatric Exam Psychiatric exam: Flat Affect - Skin Skin Exam: Dry, Intact, Normal Color, Warm Assessment and Plan - Assessment and Plan (Free Text) Assessment: CHF-IMPROVING PNEUMONIA-CLINICALLY IMPROVING ASHD HX OF LIVER TRANSPLANTATION CHRONIC KIDNEY DISEASE GENERAL DEBILITY Plan: WILL CONTINUE CURRENT RX PHILANTHROPY OFFICER FOR SUBACUTE CARE/TCU
[2018-01-14 12:51] VITALS: O2SAT 94
[2018-01-14] MEDS ORDERED: ENTECAVIR 0.5 MG PO SCH (13:00)
--- NOTE | 2018-01-14 14:44 | RAD ---
Date of service: 01/14/2018 PROCEDURE: CHEST RADIOGRAPH, 1 VIEW HISTORY: CHF/PNEUMONIA COMPARISON: 01/11/2018. FINDINGS: LUNGS: Lower lobe consolidative change is stable. PLEURA: Small bilateral pleural effusions are stable. CARDIOVASCULAR: No aortic atherosclerotic calcification present. Cardiomegaly. No evidence of acute, significant cardiovascular disease. Position/ configuration of pacemaker OSSEOUS STRUCTURES: No significant abnormalities. VISUALIZED UPPER ABDOMEN: Normal. OTHER FINDINGS: None. IMPRESSION: No significant interval change compared to the prior examination(s).
[2018-01-14 16:28] VITALS: BP 136/84; PULSE 55; RESP 20; TEMP 98
--- NOTE | 2018-01-15 08:57 | CP.PCM.DIS ---
Provider - Provider Date of Admission: 01/07/18 16:58 Attending physician: Grey Arriaga MD Time Spent in preparation of Discharge (in minutes): 30 Diagnosis - Discharge Diagnosis (1) ASHD (arteriosclerotic heart disease) Status: Acute (2) Acute on chronic combined systolic and diastolic congestive heart failure Status: Acute (3) Chronic atrial fibrillation Status: Acute (4) Chronic kidney disease, stage IV (severe) Status: Acute (5) Generalized muscle weakness Status: Acute (6) Liver transplant disorder Status: Acute (7) Medical non-compliance Status: Acute (8) S/P placement of cardiac pacemaker Status: Acute Hospital Course - Lab Results Lab Results: Micro Results 01/07/18 14:15 Blood Blood Culture - Final NO GROWTH AFTER 5 DAYS 01/07/18 14:15 Blood Gram Stain - Final TEST NOT PERFORMED 01/07/18 14:30 Blood Blood Culture - Final NO GROWTH AFTER 5 DAYS 01/07/18 14:30 Blood Gram Stain - Final TEST NOT PERFORMED 01/10/18 12:00 Sputum Gram Stain - Final 01/10/18 12:00 Sputum Sputum Culture - Final NORMAL ORAL JYOTSNA 01/10/18 08:52 Sputum Fungal Culture - Preliminary 01/07/18 14:59 Throat Group A Strep Throat Culture - Final NORMAL SAPROPHYTIC JYOTSNA. CULTURE NEGATIVE FOR BETA STREP GROUP A. Most Recent Lab Values WBC 9.6 K/uL (4.8-10.8) 01/13/18 05:46 RBC 4.83 Mil/uL (4.40-5.90) 01/13/18 05:46 Hgb 14.0 g/dL (12.0-18.0) 01/13/18 05:46 Hct 42.9 % (35.0-51.0) 01/13/18 05:46 MCV 88.9 fl (80.0-94.0) 01/13/18 05:46 MCH 29.1 pg (27.0-31.0) 01/13/18 05:46 MCHC 32.7 g/dL (33.0-37.0) L 01/13/18 05:46 RDW 14.7 % (11.5-14.5) H 01/13/18 05:46 Plt Count 123 K/uL (130-400) L D 01/13/18 05:46 MPV 10.9 fl (7.2-11.7) 01/13/18 05:46 Neut % (Auto) 81.0 % (50.0-75.0) H 01/13/18 05:46 Lymph % (Auto) 9.9 % (20.0-40.0) L 01/13/18 05:46 [place] % (Auto) 7.4 % (0.0-10.0) 01/13/18 05:46 Eos % (Auto) 1.4 % (0.0-4.0) 01/13/18 05:46 Baso % (Auto) 0.3 % (0.0-2.0) 01/13/18 05:46 Neut # (Auto) 7.8 K/uL (1.8-7.0) H 01/13/18 05:46 Lymph # (Auto) 0.9 K/uL (1.0-4.3) L 01/13/18 05:46 [place] # (Auto) 0.7 K/uL (0.0-0.8) 01/13/18 05:46 Eos # (Auto) 0.1 K/uL (0.0-0.7) 01/13/18 05:46 Baso # (Auto) 0.0 K/uL (0.0-0.2) 01/13/18 05:46 Neutrophils % (Manual) 83 % (42-75) H 01/13/18 05:46 Band Neutrophils % 2 % (0-2) 01/07/18 14:59 Lymphocytes % (Manual) 9 % (20-50) L 01/13/18 05:46 Monocytes % (Manual) 6 % (0-10) 01/13/18 05:46 Eosinophils % (Manual) 2 % (0-7) 01/13/18 05:46 Platelet Estimate Decreased (NORMAL) L 01/13/18 05:46 Anisocytosis (manual) Slight 01/07/18 14:59 Tear Drop Cells Slight 01/07/18 14:59 Ovalocytes Slight 01/07/18 14:59 PT 15.2 Seconds (9.8-13.1) H 01/07/18 15:33 INR 1.3 01/07/18 15:33 APTT 36.8 Seconds (25.6-37.1) 01/07/18 15:33 pO2 40 mm/Hg (30-55) 01/07/18 14:55 VBG pH 7.40 (7.32-7.43) 01/07/18 14:55 VBG pCO2 40 mmHg (40-60) 01/07/18 14:55 VBG HCO3 24.3 mmol/L 01/07/18 14:55 VBG Total CO2 26.0 mmol/L (22-28) 01/07/18 14:55 VBG O2 Sat (Calc) 81.8 % (40-65) H 01/07/18 14:55 VBG Base Excess 0.0 mmol/L (0.0-2.0) 01/07/18 14:55 Sodium 177.0 mmol/L (132-148) H* 01/07/18 14:55 Chloride 119.0 mmol/L (98-107) H 01/07/18 14:55 Glucose 83 mg/dL (75-110) 01/07/18 14:55 Lactate 2.1 mmol/L (0.7-2.1) 01/07/18 14:55 FiO2 21.0 % 01/07/18 14:55 Crit Value Called To Sue centeno 01/07/18 14:55 Crit Value Called By 23 01/07/18 14:55 Crit Value Read Back Y 01/07/18 14:55 Blood Gas Notified Time 1500 01/07/18 14:55 Sodium 140 mmol/l (132-148) 01/13/18 05:46 Potassium 3.6 MMOL/L (3.6-5.0) 01/13/18 05:46 Chloride 97 mmol/L (98-107) L 01/13/18 05:46 Carbon Dioxide 28 mmol/L (22-30) 01/13/18 05:46 Anion Gap 19 (10-20) 01/13/18 05:46 BUN 61 mg/dl (9-20) H 01/13/18 05:46 Creatinine 4.4 mg/dl (0.8-1.5) H 01/13/18 05:46 Est GFR ( Amer) 16 01/13/18 05:46 Est GFR (Non-Af Amer) 14 01/13/18 05:46 Random Glucose 100 mg/dL (75-110) 01/13/18 05:46 Calcium 9.3 mg/dL (8.4-10.2) 01/13/18 05:46 Magnesium 1.5 MG/DL (1.6-2.3) L 01/09/18 04:28 Total Bilirubin 1.1 mg/dl (0.2-1.3) 01/13/18 05:46 AST 11 U/L (17-59) L D 01/13/18 05:46 ALT 9 U/L (21-72) L D 01/13/18 05:46 Alkaline Phosphatase 114 U/L (38-126) 01/13/18 05:46 Troponin I 0.0470 ng/mL (0.00-0.120) 01/07/18 15:33 NT-Pro-B Natriuret Pep 00929 pg/ml (0-900) H 01/09/18 04:28 Total Protein 7.4 G/DL (6.3-8.2) 01/13/18 05:46 Albumin 3.8 g/dL (3.5-5.0) 01/13/18 05:46 Globulin 3.5 gm/dL (2.2-3.9) 01/13/18 05:46 Albumin/Globulin Ratio 1.1 (1.0-2.1) 01/13/18 05:46 Tacrolimus (LC/MS/MS) 13.3 mcg/L (5.0-20.0) 01/09/18 04:28 Absolute Lymphs (Flow) 1146 Cells/mcL (850-3900) 01/09/18 16:06 % CD4 Cells 42 Percent (30-61) 01/09/18 16:06 Absolute CD4 Count 482 Cells/mcL (490-1740) L 01/09/18 16:06 T-Help/Suppress Ratio 1.34 Ratio (0.86-5.00) 01/09/18 16:06 % CD8 Cells 31 Percent (12-42) 01/09/18 16:06 Absolute CD8 Count 360 Cells/mcL (180-1170) 01/09/18 16:06 Hepatitis A IgM Ab Negative (NEGATIVE) 01/09/18 16:06 Hep Bs Antigen Negative (NEGATIVE) 01/09/18 16:06 Hep B Core IgM Ab Negative (NEGATIVE) 01/09/18 16:06 Hepatitis C Antibody Negative (NEGATIVE) 01/09/18 16:06 HIV 1&2 Antibody Screen Negative (NEGATIVE) 01/09/18 16:06 Ur L.pneumophila Ag Negative (NEGATIVE) 01/09/18 16:06 Mycoplasma pneumon IgM Negative (NEGATIVE) 01/09/18 16:06 Grp A Beta Strep Ag Negative (NEGATIVE) 01/07/18 14:59 - Hospital Course Hospital Course: STILL WEAK Discharge Exam - Head Exam Head Exam: ATRAUMATIC, NORMAL INSPECTION, NORMOCEPHALIC - Eye Exam Eye Exam: EOMI, Normal appearance, PERRL Pupil Exam: NORMAL ACCOMODATION, PERRL - Respiratory Exam Respiratory Exam: Decreased Breath Sounds - GI/Abdominal Exam GI & Abdominal Exam: Normal Bowel Sounds - Rectal Exam Rectal Exam: NORMAL INSPECTION - Neurological Exam Neurological exam: Abnormal Gait, Alert, CN II-XII Intact, Normal Gait, Oriented x3, Reflexes Normal - Psychiatric Exam Psychiatric exam: Normal Affect, Normal Mood - Skin Skin Exam: Dry, Intact, Normal Color, Warm Discharge Plan - Discharge Medications Prescriptions: Entecavir [Baraclude] 0.5 mg PO Q48H #14 - Follow Up Plan Condition: FAIR Disposition: TRANSF TO SNF Patient education suggested?: Yes Instructions: Heart Failure, Adult (DC), Acute Kidney Failure (DC) Additional Instructions: discharge pt to tcu follow up appt with on sunday01/30/18 at 11:00am at [address] [place] [id number] [address] [facility] [phone] Referrals: Raimundo Tovar MD [Staff Provider] - Grey Arriaga MD [Staff Provider] -
== END 2018-01-14 18:00 | DRG 291 ==
LOC: H.ER 13:46 → H.ERHOLD 16:58 → H.TEL 23:12
PROVIDERS: ADMIT Internal Medicine Pulmonary Disease; ATTEND Internal Medicine Pulmonary Disease
PROC: 3E0F7GC Introduction of Other Therapeutic Substance into Respiratory Tract, Via Natural or Artificial Opening (ICD-10-PCS; principal; 2018-01-07)
DX: I13.0 Hypertensive heart and chronic kidney disease with heart failure and stage 1 through stage 4 chronic kidney disease, or unspecified chronic kidney disease (principal); I50.43 Acute on chronic combined systolic (congestive) and diastolic (congestive) heart failure; J18.0 Bronchopneumonia, unspecified organism; N17.9 Acute kidney failure, unspecified; Z94.4 Liver transplant status; N18.4 Chronic kidney disease, stage 4 (severe); J44.0 Chronic obstructive pulmonary disease with (acute) lower respiratory infection; I48.2 Chronic atrial fibrillation; I25.10 Atherosclerotic heart disease of native coronary artery without angina pectoris; E78.5 Hyperlipidemia, unspecified; E78.00 Pure hypercholesterolemia, unspecified; H91.92 Unspecified hearing loss, left ear; Z95.0 Presence of cardiac pacemaker; Z91.15 Patient's noncompliance with renal dialysis; Z91.19 Patient's noncompliance with other medical treatment and regimen; Z86.711 Personal history of pulmonary embolism; Z87.891 Personal history of nicotine dependence; R53.81 Other malaise

== ENCOUNTER 2018-01-14 15:22 | Inpatient (IN) | payer OTHER ==
[2018-01-14 17:54] VITALS: BMI 27.8
[2018-01-14] MEDS ORDERED: Promethazine 6.25 MG/5 ML CUP PO PRN (18:19)
[2018-01-14] MEDS ORDERED: ENTECAVIR 0.5 MG PO SCH (18:30)
[2018-01-14] MEDS: Albuterol-Ipratrop 3 mg / 0.5 (3 ml) UD IH SCH ×2 (22:10→23:17)
[2018-01-15] MEDS: Albuterol-Ipratrop 3 mg / 0.5 (3 ml) UD IH SCH ×6 (04:25→23:23)
[2018-01-15 07:05] LABS: HEMOGLOBIN 13.6 g/dL (12.0-18.0); MEAN CELL VOLUME 89.2 fl (80.0-94.0); MEAN CORPUSCULAR HGB CONC 32.6 g/dL (33.0-37.0); RBC 4.67 Mil/uL (4.40-5.90); WHITE BLOOD COUNT 7.1 K/uL (4.8-10.8)
[2018-01-15 07:29] LABS: CALCIUM 8.8 mg/dL (8.4-10.2)
[2018-01-15] MEDS: Acetylcysteine 20% Inhal Soln (4ml) INH SCH ×2 (08:00→19:15)
--- NOTE | 2018-01-15 17:17 | HP ---
HISTORY OF PRESENT ILLNESS: Mr. Oreilly is a 62-year-old male who was transferred from the medical floor after he was admitted with acute congestive heart failure associated with shortness of breath, chest tightness, exercise intolerance, swelling of legs and generalized deconditioning. PAST MEDICAL HISTORY: He has a past medical history of congestive heart failure due to both diastolic and systolic dysfunction. He also has a history of recent pacemaker placement for cardiac arrhythmias (atrial fibrillation with uncontrolled ventricular response). He also has a history of liver transplantation in the past and questionable brain lesion in the past was treated. He has a history of hypertension, poor compliance to therapy, chronic renal failure for which he refuses dialysis and renal intervention. FAMILY HISTORY: Noncontributory except for a sister who recently from cardiac disease. SOCIAL HISTORY: Socially, he does not smoke or drink and lives alone. REVIEW OF SYSTEMS: Essentially remarkable for generalized malaise and shortness of breath. PHYSICAL EXAMINATION: GENERAL: The patient is alert and oriented. VITAL SIGNS: Blood pressure 120/68, pulse of 69, respiratory rate of 20 per minute. He is afebrile. O2 sat 95% on nasal cannula oxygen. SKIN: Shows fair turgor. HEENT: Pupils equal, reactive to light and accommodation. Mouth shows fair hygiene. JVP flat. LUNGS: Fair aeration with scattered bilateral basilar rales. HEART: S1, S2. There is a pacemaker in place. ABDOMEN: Soft, nontender, no organomegaly. EXTREMITIES: No edema or cyanosis. CENTRAL NERVOUS SYSTEM: Exam grossly intact except for unsteadiness of gait and generalized weakness. LABORATORY DATA: Remarkable for WBC of 7.1, hemoglobin of 13.6, platelet count of 724620. Sodium 140, potassium 3.5, BUN of 72, creatinine 5.1. IMPRESSION: Congestive heart failure both diastolic and systolic dysfunction, cardiac arrhythmias status post permanent pacemaker placement, chronic kidney disease stage IV, hypertension, coronary artery disease, history of liver transplantation, history of questionable brain lesion in the past and history of poor compliance to therapy. PLAN: The plan is the patient will remain in transitional care for IV antibiotics for pneumonia which was diagnosed this admission. We will also need occupational and physical therapy. Infectious disease and cardiac evaluation already ordered. Grey Arriaga MD [facility] # [id number]
[2018-01-15] MEDS: Benzocaine/Menthol (Cepacol) Lozenge MM PRN (17:28)
--- NOTE | 2018-01-15 21:45 | CP.PCM.CON ---
History of Present Illness - History of Present Illness History of Present Illness: ASKED TO SEE PT BY DR RICHARDSON. PT TRANSFERED TO TCU S/P HOSPITALIZATION FOR CHF AND PNA. PT STATES HE FEELS WEAK, HOWEVER HIS RESP STATUS IS IMPROVED. PTS CR INCREASED. NO F/C/N/V. Review of Systems - Constitutional Constitutional: As Per HPI, Fatigue, Lethargy, Weakness. absent: Anorexia, Chills, Daytime Sleepiness, Excessive Sweating, Fever, Frequent Falls, Headache, Increased Appetite, Malaise, Night Sweats, Snoring, Sleep Apnea, Weight Gain, Weight Loss, Other - EENT Eyes: As Per HPI. absent: Blind Spots, Blurred Vision, Change in Vision, Decreased Night Vision, Diplopia, Discharge, Dry Eye, Exophthalmos, Floaters, Irritation, Itchy Eyes, Loss of Peripheral Vision, Pain, Photophobia, Requires Corrective Lenses, Sees Flashes, Spots in Vision, Tunnel Vision, Other Visual Disturbances, Loss of Vision, Other Ears: As Per HPI. absent: Decreased Hearing, Ear Discharge, Ear Pain, Tinnitus, Abnormal Hearing, Disequilibrium, Dizziness, Other Nose/Mouth/Throat: As Per HPI. absent: Epistaxis, Nasal Congestion, Nasal Discharge, Nasal Obstruction, Nasal Trauma, Nose Pain, Post Nasal Drip, Sinus Pain, Sinus Pressure, Bleeding Gums, Change in Voice, Dental Pain, Dry Mouth, Dysphagia, Halitosis, Hoarsness, Lip Swelling, Mouth Lesions, Mouth Pain, Odynophagia, Sore Throat, Throat Swelling, Tongue Swelling, Facial Pain, Neck Pain, Neck Mass, Other - Cardiovascular Cardiovascular: As Per HPI, Dyspnea on Exertion. absent: Acrocyanosis, Chest Pain, Chest Pain at Rest, Chest Pain with Activity, Claudication, Diaphoresis, Dyspnea, Edema, Irregular Heart Rhythm, Pain Radiating to Arm/Neck/Jaw, Leg Edema, Leg Ulcers, Lightheadedness, Orthopnea, Palpitations, Paroxysmal Nocturnal Dyspnea, Pedal Edema, Radiating Pain, Rapid Heart Rate, Slow Heart Rate, Syncope, Other - Respiratory Respiratory: As Per HPI, Cough, Dyspnea on Exertion. absent: Dyspnea, Hemoptysis, Wheezing, Snoring, Stridor, Pain on Inspiration, Chest Congestion, Excessive Mucous Production, Change in Mucous Color, Pain with Coughing, Other - Gastrointestinal Gastrointestinal: As Per HPI. absent: Abdominal Pain, Belching, Bloating, Change in Bowel Habits, Change in Stool Character, Coffee Ground Emesis, Constipation, Cramping, Diarrhea, Dyspepsia, Dysphagia, Early Satiety, Excessive Flatus, Fecal Incontinence, Heartburn, Hematemesis, Hematochezia, Loose Stools, Melena, Nausea, Odynophagia, Temesmus, Vomiting, Other - Genitourinary Genitourinary: As Per HPI. absent: Change in Urinary Stream, Difficulty Urinating, Dysuria, Flank Pain, Hematuria, Pyuria, Nocturia, Urinary Incontinence, Urinary Frequency, Urinary Hesitance, Urinary Urgency, Voiding Freq/Small Amts, Freq UTI, Hx Renal/Bladder Calculi, Hx /Renal Surgery, Bl adder Distension, Other - Reproductive: Male Reproductive:Male: As Per HPI - Musculoskeletal Musculoskeletal: As Per HPI. absent: Abnormal Gait, Arthralgias, Atrophy, Back Pain, Deformity, Joint Swelling, Limited Range of Motion, Loss of Height, Muscle Cramps, Muscle Weakness, Myalgias, Neck Pain, Numbness, Radiating Pain into Limb, Stiffness, Tingling, Other - Integumentary Integumentary: As Per HPI. absent: Acne, Alopecia, Bleeding Lesions, Change in Hair, Change in Nails, Change in Pigmentation, Changing Lesions, Dry Skin, Erythema, Furuncle, Hirsutism, Lesions, New Lesions, Non-Healing Lesions, Photosensitivity, Pruritus, Rash, Skin Pain, Skin Ulcer, Sores, Striae, Swe lling, Unusual Bruising, Wounds, Jaundice, Other - Neurological Neurological: As Per HPI. absent: Abnormal Gait, Abnormal Hearing, Abnormal Movements, Abnormal Speech, Behavioral Changes, Burning Sensations, Confusion, Convulsions, Disequilibrium, Dizziness, Numbness, Focal Weakness, Frequent Falls, Headaches, Lack of Coordination, Loss of Vision, Memory Loss, Paresthesias, Radicular Pain, Restless Legs, Sensory Deficit, Syncope, Tingling, Tremor, Vertigo, Weakness, Other Visual Disturbances, Other - Psychiatric Psychiatric: As Per HPI. absent: Abnormal Sleep Pattern, Anhedonia, Anxiety, Auditory Hallucinations, Behavioral Changes, Change in Appetite, Change in Libido, Confusion, Depression, Difficulty Concentrating, Hallucinations, Homicidal Ideation, Hopelessness, Irritability, Memory Loss, Mood Swings, Panic Attacks, Paranoia, Suicidal Ideation, Visual Hallucinations, Tactile Hallucinations, Other - Endocrine Endocrine: As Per HPI. absent: Change in Body Appearance, Change in Libido, Cold Intolorance, Deepening of Voice, Excessive Sweating, Fatigue, Flushing, H eat Intolorance, Increase in Ring/Shoe/Hat Size, Palpitations, Polydipsia, Polyphagia, Polyuria, Other - Hematologic/Lymphatic Hematologic: As Per HPI. absent: Easy Bleeding, Easy Bruising, Lymphadenopathy, Other Past Patient History - Past Medical History & Family History Past Medical History?: Yes - Past Social History Smoking Status: Former Smoker Chewing Tobacco Use: No Cigar Use: No Alcohol: None Drugs: Denies Domestic Violence: Negative - CARDIAC Hx Cardiac Disorders: Yes Hx Cardia Arrhythmia: Yes Hx Congestive Heart Failure: Yes Hx Hypercholesterolemia: Yes Hx Hypertension: Yes Hx Pacemaker: Yes - PULMONARY Hx Respiratory Disorders: Yes Hx Pulmonary Edema: Yes - NEUROLOGICAL Hx Neurological Disorder: No - HEENT Hx HEENT Problems: Yes Hx Deafness: Yes (left ear) - RENAL Hx Chronic Kidney Disease: Yes Hx Renal Failure: Yes - ENDOCRINE/METABOLIC Hx Endocrine Disorders: No Hx Adrenal Cancer: No - HEMATOLOGICAL/ONCOLOGICAL Hx Blood Transfusions: Yes Hx Blood Transfusion Reaction: No Hx Hepatitis B: Yes - INTEGUMENTARY Hx Dermatological Problems: No - MUSCULOSKELETAL/RHEUMATOLOGICAL Hx Musculoskeletal Disorders: No Hx Falls: No - GASTROINTESTINAL Hx Gastrointestinal Disorders: Yes Other/Comment: Hx liver transplant - GENITOURINARY/GYNECOLOGICAL Hx Genitourinary Disorders: No - PSYCHIATRIC Hx Psychophysiologic Disorder: No Hx Substance Use: No - SURGICAL HISTORY Hx Surgeries: Yes Hx Liver Transplant: Yes (1998) Other/Comment: brain surgery 1984 - ANESTHESIA Hx Anesthesia: Yes Hx Anesthesia Reactions: No Meds Allergies/Adverse Reactions: Allergies Allergy/AdvReac Type Severity Reaction Status Date / Time No Known Allergies Allergy Verified 01/07/18 13:48 - Medications Medications: Current Medications Acetylcysteine (Acetylcysteine 20%) 2 ml INH RBID [facility] Last Admin: 01/15/18 19:15 Dose: 2 ml Albuterol/Ipratropium (Duoneb 3 Mg/0.5 Mg (3 Ml) Ud) 3 ml IH RQ4 [facility] Last Admin: 01/15/18 19:14 Dose: 3 ml Alprazolam (Xanax) 0.5 mg PO BID PRN PRN Reason: Anxiety Last Admin: 01/14/18 22:32 Dose: 0.5 mg Apixaban (Eliquis) 2.5 mg PO BID [facility]; Protocol Last Admin: 01/15/18 17:27 Dose: 2.5 mg Atorvastatin Calcium (Lipitor) 10 mg PO DAILY [facility] Last Admin: 01/15/18 08:35 Dose: 10 mg Benzocaine/Menthol (Cepacol Sore Throat) 1 cordell MM Q3 PRN PRN Reason: Sore Throat Last Admin: 01/15/18 17:28 Dose: 1 cordell Calcium Acetate (Phoslo) 667 mg PO TID [facility] Last Admin: 01/15/18 17:27 Dose: 667 mg Carvedilol (Coreg) 25 mg PO Q12 [facility] Last Admin: 01/15/18 21:08 Dose: 25 mg Famotidine (Pepcid) 20 mg PO DAILY [facility] Last Admin: 01/15/18 08:35 Dose: 20 mg Home Med (Entecavir [Baraclude]) 0.5 mg PO Q48H [facility] Ceftriaxone Sodium 1 gm/ (Sodium Chloride) 100 mls @ 100 mls/hr IVPB DAILY@1700 [facility]; Protocol Last Admin: 01/15/18 17:27 Dose: 100 mls/hr Promethazine HCl (Phenergan Syrup) 12.5 mg PO Q6 PRN PRN Reason: Cough Tacrolimus (Prograf Cap) 0.5 mg PO HS [facility] Last Admin: 01/15/18 21:18 Dose: 0.5 mg Tacrolimus (Prograf Cap) 1 mg PO HS [facility] Last Admin: 01/15/18 21:18 Dose: 1 mg Zolpidem Tartrate (Ambien) 5 mg PO HS PRN PRN Reason: Insomnia Last Admin: 01/14/18 22:32 Dose: 5 mg Physical Exam - Constitutional Appears: Non-toxic - Head Exam Head Exam: ATRAUMATIC, NORMAL INSPECTION, NORMOCEPHALIC - Eye Exam Eye Exam: EOMI, Normal appearance, PERRL. absent: Conjunctival injection, Nystagmus, Periorbital swelling, Periorbital tenderness, Scleral icterus Pupil Exam: absent: Fixed, Irregular, Miosis, Mydriatic, NORMAL ACCOMODATION, PERRL, Unequal - ENT Exam ENT Exam: Mucous Membranes Moist, Normal Exam. absent: Mucous Membranes Dry, Normal External Ear Exam, Normal Oropharynx, TM's Normal Bilaterally - Neck Exam Neck exam: Positive for: Normal Inspection. Negative for: Full Rom, Lymphadenopathy, Meningismus, Tenderness, Thyromegaly - Respiratory Exam Respiratory Exam: NORMAL BREATHING PATTERN Additional comments: DECREASED BS AT BASES WITH MILD RHONCHI. - Cardiovascular Exam Cardiovascular Exam: REGULAR RHYTHM, +S1, +S2, Systolic Murmur. absent: Hilton cardia, Tachycardia, Clicks, Diastolic murmur, Gallop, Irregular Rhythm, JVD, RRR, Rubs, +S4 - GI/Abdominal Exam GI & Abdominal Exam: Normal Bowel Sounds, Soft. absent: Bruit, Diminished Bowel Sounds, Distended, Firm, Guarding, Hernia, Hyperactive Bowel Sounds, Hypoactive Bowel Sounds, Mass, Organomegaly, Pulsatile Mass, Rebound, Rigid, Tenderness - Rectal Exam Rectal Exam: Deferred - Extremities Exam Extremities exam: Positive for: normal inspection, pedal pulses present. Neg ative for: calf tenderness, full ROM, joint swelling, normal capillary refill, pedal edema, tenderness - Back Exam Back exam: NORMAL INSPECTION. absent: CVA tenderness (L), CVA tenderness (R), FULL ROM, muscle spasm, paraspinal tenderness, rash noted, tenderness, vertebral tenderness - Neurological Exam Neurological exam: Alert, CN II-XII Intact, Normal Gait, Oriented x3, Reflexes Normal - Psychiatric Exam Psychiatric exam: Normal Affect - Skin Skin Exam: Dry, Intact, Normal Color, Warm Results - Vital Signs Recent Vital Signs: Last Vital Signs Temp 97.2 F L 01/15/18 19:45 Pulse 70 01/15/18 21:08 Resp 20 01/15/18 19:45 BP 127/88 01/15/18 21:08 Pulse Ox 97 01/15/18 19:45 - Labs Result Diagrams: 01/15/18 06:30 01/15/18 06:30 Labs: Laboratory Results - last 24 hr 01/15/18 01/15/18 06:30 06:30 WBC 7.1 RBC 4.67 Hgb 13.6 Hct 41.6 MCV 89.2 MCH 29.0 MCHC 32.6 L RDW 15.0 H Plt Count 138 Sodium 140 Potassium 3.5 L Chloride 98 Carbon Dioxide 27 Anion Gap 19 BUN 76 H Creatinine 5.1 H Est GFR ( Amer) 14 Est GFR (Non-Af Amer) 11 Random Glucose 95 Calcium 8.8 Assessment & Plan (1) Acute on chronic combined systolic and diastolic congestive heart failure Status: Acute (2) Chronic atrial fibrillation Status: Chronic (3) S/P placement of cardiac pacemaker Status: Chronic (4) Generalized muscle weakness Status: Acute (5) ARF (acute renal failure) Status: Acute - Assessment and Plan (Free Text) Plan: HOLD DIURETICS GIVEN INCREASE IN CR. CONT PT MONITOR LYTES ONCE CR AT BASELINE WILL START ARB. IS ORDERED MILD RHONCHI AT BASES. 45 MIN TOTAL CARE.
[2018-01-16] MEDS: Albuterol-Ipratrop 3 mg / 0.5 (3 ml) UD IH SCH ×6 (03:50→23:55)
[2018-01-16] MEDS: Acetylcysteine 20% Inhal Soln (4ml) INH SCH ×2 (07:47→19:37)
[2018-01-16] MEDS: ENTECAVIR 0.5 MG PO SCH (08:45)
[2018-01-16] MEDS: Benzocaine/Menthol (Cepacol) Lozenge MM PRN (08:47)
--- NOTE | 2018-01-16 09:38 | CP.PCM.PN ---
Subjective - Date & Time of Evaluation Date of Evaluation: 01/16/18 Time of Evaluation: 09:38 - Subjective Subjective: FEELS DIZZY TODAY STILL HAS EXERTIONAL DYSPNEA Objective - Vital Signs/Intake and Output Vital Signs (last 24 hours): Temp Pulse Resp BP Pulse Ox 97.1 F L 70 20 138/95 H 93 L 01/16/18 08:39 01/16/18 08:45 01/16/18 08:39 01/16/18 08:45 01/16/18 08:39 - Medications Medications: Current Medications Acetylcysteine (Acetylcysteine 20%) 2 ml INH RBID [facility] Last Admin: 01/16/18 07:47 Dose: 2 ml Albuterol/Ipratropium (Duoneb 3 Mg/0.5 Mg (3 Ml) Ud) 3 ml IH RQ4 [facility] Last Admin: 01/16/18 07:47 Dose: 3 ml Alprazolam (Xanax) 0.5 mg PO BID PRN PRN Reason: Anxiety Last Admin: 01/15/18 22:44 Dose: 0.5 mg Apixaban (Eliquis) 2.5 mg PO BID [facility]; Protocol Last Admin: 01/16/18 08:45 Dose: 2.5 mg Atorvastatin Calcium (Lipitor) 10 mg PO DAILY [facility] Last Admin: 01/16/18 08:45 Dose: 10 mg Benzocaine/Menthol (Cepacol Sore Throat) 1 cordell MM Q3 PRN PRN Reason: Sore Throat Last Admin: 01/16/18 08:47 Dose: 1 cordell Calcium Acetate (Phoslo) 667 mg PO TID [facility] Last Admin: 01/16/18 08:45 Dose: 667 mg Carvedilol (Coreg) 25 mg PO Q12 [facility] Last Admin: 01/16/18 08:45 Dose: 25 mg Famotidine (Pepcid) 20 mg PO DAILY [facility] Last Admin: 01/16/18 08:46 Dose: 20 mg Home Med (Entecavir [Baraclude]) 0.5 mg PO Q48H [facility] Last Admin: 01/16/18 08:45 Dose: 0.5 mg Ceftriaxone Sodium 1 gm/ (Sodium Chloride) 100 mls @ 100 mls/hr IVPB DAILY@1700 [facility]; Protocol Last Admin: 01/15/18 17:27 Dose: 100 mls/hr Promethazine HCl (Phenergan Syrup) 12.5 mg PO Q6 PRN PRN Reason: Cough Tacrolimus (Prograf Cap) 0.5 mg PO HS [facility] Last Admin: 01/15/18 21:18 Dose: 0.5 mg Tacrolimus (Prograf Cap) 1 mg PO HS [facility] Last Admin: 01/15/18 21:18 Dose: 1 mg Zolpidem Tartrate (Ambien) 5 mg PO HS PRN PRN Reason: Insomnia Last Admin: 01/15/18 22:43 Dose: 5 mg - Labs Labs: 01/15/18 06:30 01/15/18 06:30 - Constitutional Appears: In Acute Distress, Chronically Ill - Head Exam Head Exam: ATRAUMATIC, NORMAL INSPECTION, NORMOCEPHALIC - Eye Exam Eye Exam: EOMI, Normal appearance, PERRL Pupil Exam: NORMAL ACCOMODATION, PERRL - ENT Exam ENT Exam: Mucous Membranes Moist, Normal Exam - Neck Exam Neck Exam: Full ROM, Normal Inspection. absent: Lymphadenopathy - Respiratory Exam Respiratory Exam: Chest Wall Tenderness, Rales, Wheezes, NORMAL BREATHING PATTERN - Cardiovascular Exam Cardiovascular Exam: REGULAR RHYTHM, +S1, +S2. absent: Murmur - GI/Abdominal Exam GI & Abdominal Exam: Soft, Normal Bowel Sounds. absent: Tenderness - Rectal Exam Rectal Exam: NORMAL INSPECTION - Extremities Exam Extremities Exam: Full ROM, Normal Capillary Refill, Normal Inspection. absent: Joint Swelling, Pedal Edema - Back Exam Back Exam: NORMAL INSPECTION - Neurological Exam Neurological Exam: Abnormal Gait, Alert, Awake, CN II-XII Intact, Oriented x3 - Psychiatric Exam Psychiatric exam: Normal Affect, Normal Mood - Skin Skin Exam: Dry, Intact, Normal Color, Warm Assessment and Plan - Assessment and Plan (Free Text) Assessment: CHF PNEUMONIA ARRYTHMIAS ESRD Plan: CONTINUE CURRENT RX [employer] ASSESSOR FOR DISPOSITION
[2018-01-17] MEDS: Albuterol-Ipratrop 3 mg / 0.5 (3 ml) UD IH SCH ×6 (04:54→23:48)
[2018-01-17] MEDS: Acetylcysteine 20% Inhal Soln (4ml) INH SCH ×2 (08:31→19:15)
--- NOTE | 2018-01-17 09:46 | CP.PCM.PN ---
Subjective - Date & Time of Evaluation Date of Evaluation: 01/17/18 Time of Evaluation: 09:46 - Subjective Subjective: oob to chair sob gradually improving Objective - Vital Signs/Intake and Output Vital Signs (last 24 hours): Temp Pulse Resp BP Pulse Ox 98.0 F 69 18 109/72 95 01/17/18 08:37 01/17/18 08:37 01/17/18 08:37 01/17/18 08:37 01/17/18 08:37 - Medications Medications: Current Medications Acetylcysteine (Acetylcysteine 20%) 2 ml INH RBID [facility] Last Admin: 01/17/18 08:31 Dose: 2 ml Albuterol/Ipratropium (Duoneb 3 Mg/0.5 Mg (3 Ml) Ud) 3 ml IH RQ4 [facility] Last Admin: 01/17/18 08:31 Dose: 3 ml Alprazolam (Xanax) 0.5 mg PO BID PRN PRN Reason: Anxiety Last Admin: 01/16/18 22:14 Dose: 0.5 mg Apixaban (Eliquis) 2.5 mg PO BID [facility]; Protocol Last Admin: 01/17/18 08:42 Dose: 2.5 mg Atorvastatin Calcium (Lipitor) 10 mg PO DAILY [facility] Last Admin: 01/17/18 08:42 Dose: 10 mg Benzocaine/Menthol (Cepacol Sore Throat) 1 cordell MM Q3 PRN PRN Reason: Sore Throat Last Admin: 01/16/18 08:47 Dose: 1 cordell Calcium Acetate (Phoslo) 667 mg PO TID [facility] Last Admin: 01/17/18 08:42 Dose: 667 mg Carvedilol (Coreg) 25 mg PO Q12 [facility] Last Admin: 01/17/18 08:42 Dose: 25 mg Famotidine (Pepcid) 20 mg PO DAILY [facility] Last Admin: 01/17/18 08:42 Dose: 20 mg Home Med (Entecavir [Baraclude]) 0.5 mg PO Q48H [facility] Last Admin: 01/16/18 08:45 Dose: 0.5 mg Ceftriaxone Sodium 1 gm/ (Sodium Chloride) 100 mls @ 100 mls/hr IVPB DAILY@1700 [facility]; Protocol Last Admin: 01/16/18 17:19 Dose: 100 mls/hr Promethazine HCl (Phenergan Syrup) 12.5 mg PO Q6 PRN PRN Reason: Cough Tacrolimus (Prograf Cap) 0.5 mg PO HS [facility] Last Admin: 01/16/18 22:13 Dose: 0.5 mg Tacrolimus (Prograf Cap) 1 mg PO HS [facility] Last Admin: 01/16/18 22:13 Dose: 1 mg Zolpidem Tartrate (Ambien) 5 mg PO HS PRN PRN Reason: Insomnia Last Admin: 01/16/18 22:14 Dose: 5 mg - Labs Labs: 01/15/18 06:30 01/15/18 06:30 - Constitutional Appears: No Acute Distress, Chronically Ill - Head Exam Head Exam: ATRAUMATIC, NORMAL INSPECTION, NORMOCEPHALIC - Eye Exam Eye Exam: EOMI, Normal appearance, PERRL Pupil Exam: NORMAL ACCOMODATION, PERRL - ENT Exam ENT Exam: Mucous Membranes Moist, Normal Exam - Neck Exam Neck Exam: Full ROM, Normal Inspection. absent: Lymphadenopathy - Respiratory Exam Respiratory Exam: Decreased Breath Sounds, Prolonged Expiratory Phase, NORMAL BREATHING PATTERN - Cardiovascular Exam Cardiovascular Exam: REGULAR RHYTHM, +S1, +S2. absent: Murmur - GI/Abdominal Exam GI & Abdominal Exam: Soft, Normal Bowel Sounds. absent: Tenderness - Rectal Exam Rectal Exam: NORMAL INSPECTION - Extremities Exam Extremities Exam: Full ROM, Normal Capillary Refill, Normal Inspection. absent: Joint Swelling, Pedal Edema - Back Exam Back Exam: NORMAL INSPECTION - Neurological Exam Neurological Exam: Alert, Awake, CN II-XII Intact, Oriented x3 - Psychiatric Exam Psychiatric exam: Normal Affect, Normal Mood - Skin Skin Exam: Dry, Intact, Normal Color, Warm Assessment and Plan - Assessment and Plan (Free Text) Assessment: pneumonia s/p liver transplant htn chf esrd Plan: continue current rx
--- NOTE | 2018-01-17 13:14 | CP.PCM.PN ---
Subjective - Date & Time of Evaluation Date of Evaluation: 01/17/18 Time of Evaluation: 13:05 - Subjective Subjective: COUGH WITH IS. OTHERWISE FEELING BETTER. NO LABS DRAWN RECENTLY Objective - Vital Signs/Intake and Output Vital Signs (last 24 hours): Temp Pulse Resp BP Pulse Ox 98.0 F 69 18 109/72 95 01/17/18 08:37 01/17/18 08:37 01/17/18 08:37 01/17/18 08:37 01/17/18 08:37 - Medications Medications: Current Medications Acetylcysteine (Acetylcysteine 20%) 2 ml INH RBID [facility] Last Admin: 01/17/18 08:31 Dose: 2 ml Albuterol/Ipratropium (Duoneb 3 Mg/0.5 Mg (3 Ml) Ud) 3 ml IH RQ4 [facility] Last Admin: 01/17/18 12:56 Dose: 3 ml Alprazolam (Xanax) 0.5 mg PO BID PRN PRN Reason: Anxiety Last Admin: 01/16/18 22:14 Dose: 0.5 mg Apixaban (Eliquis) 2.5 mg PO BID [facility]; Protocol Last Admin: 01/17/18 08:42 Dose: 2.5 mg Atorvastatin Calcium (Lipitor) 10 mg PO DAILY [facility] Last Admin: 01/17/18 08:42 Dose: 10 mg Benzocaine/Menthol (Cepacol Sore Throat) 1 cordell MM Q3 PRN PRN Reason: Sore Throat Last Admin: 01/16/18 08:47 Dose: 1 cordell Calcium Acetate (Phoslo) 667 mg PO TID [facility] Last Admin: 01/17/18 12:16 Dose: 667 mg Carvedilol (Coreg) 25 mg PO Q12 [facility] Last Admin: 01/17/18 08:42 Dose: 25 mg Famotidine (Pepcid) 20 mg PO DAILY [facility] Last Admin: 01/17/18 08:42 Dose: 20 mg Home Med (Entecavir [Baraclude]) 0.5 mg PO Q48H [facility] Last Admin: 01/16/18 08:45 Dose: 0.5 mg Ceftriaxone Sodium 1 gm/ (Sodium Chloride) 100 mls @ 100 mls/hr IVPB DAILY@1700 [facility]; Protocol Last Admin: 01/16/18 17:19 Dose: 100 mls/hr Promethazine HCl (Phenergan Syrup) 12.5 mg PO Q6 PRN PRN Reason: Cough Tacrolimus (Prograf Cap) 0.5 mg PO HS [facility] Last Admin: 01/16/18 22:13 Dose: 0.5 mg Tacrolimus (Prograf Cap) 1 mg PO HS [facility] Last Admin: 01/16/18 22:13 Dose: 1 mg Zolpidem Tartrate (Ambien) 5 mg PO HS PRN PRN Reason: Insomnia Last Admin: 01/16/18 22:14 Dose: 5 mg - Labs Labs: 01/15/18 06:30 01/15/18 06:30 - Constitutional Appears: Well - Head Exam Head Exam: ATRAUMATIC, NORMAL INSPECTION, NORMOCEPHALIC - Eye Exam Eye Exam: EOMI, Normal appearance, PERRL Pupil Exam: NORMAL ACCOMODATION, PERRL - ENT Exam ENT Exam: Mucous Membranes Moist, Normal Exam - Neck Exam Neck Exam: Full ROM, Normal Inspection. absent: Lymphadenopathy, Meningismus, Tenderness, Thyromegaly - Respiratory Exam Respiratory Exam: Clear to Ausculation Bilateral, NORMAL BREATHING PATTERN. absent: Accessory Muscle Use, Chest Wall Tenderness, Decreased Breath Sounds, Prolonged Expiratory Phase, Rales, Rhonchi, Wheezes, Respiratory Distress, Stridor - Cardiovascular Exam Cardiovascular Exam: REGULAR RHYTHM, +S1, +S2, Murmur. absent: Bradycardia, Tachycardia, Clicks, Diastolic murmur, Gallop, Irregular Rhythm, JVD, RRR, Rubs, +S4 - GI/Abdominal Exam GI & Abdominal Exam: Soft, Normal Bowel Sounds. absent: Bruit, Distended, Firm, Guarding, Rigid, Tenderness, Diminished Bowel Sounds, Hernia, Hyperactive Bowel Sounds, Hypoactive Bowel Sounds, Organomegaly, Pulsatile Mass, Rebound, Mass - Rectal Exam Rectal Exam: Deferred - Extremities Exam Extremities Exam: Full ROM, Normal Capillary Refill, Normal Inspection. absent: Calf Tenderness, Joint Swelling, Pedal Edema, Tenderness - Back Exam Back Exam: NORMAL INSPECTION. absent: CVA tenderness (L), CVA tenderness (R), Full ROM, muscle spasm, paraspinal tenderness, rash noted, tenderness, vertebral tenderness - Neurological Exam Neurological Exam: Alert, Awake, CN II-XII Intact, Normal Gait, Oriented x3 - Psychiatric Exam Psychiatric exam: Normal Affect, Normal Mood - Skin Skin Exam: Dry, Intact, Normal Color, Warm Assessment and Plan (1) Acute on chronic combined systolic and diastolic congestive heart failure Status: Chronic (2) Chronic atrial fibrillation Status: Chronic (3) S/P placement of cardiac pacemaker Status: Chronic (4) Generalized muscle weakness Status: Acute (5) ARF (acute renal failure) Status: Acute - Assessment and Plan (Free Text) Plan: recheck labs in am to eval cr. cont current care. AGGRESSIVE PT AND IS.
--- NOTE | 2018-01-17 17:31 | CP.PCM.CON ---
History of Present Illness - History of Present Illness History of Present Illness: 62 yo male with complex hx is admitted to TCU following recent admission for acute CHF/ pneumonia with resp insufficiency Has PIERRE on CKD, HTN CHF s/p Liver transplant s/p PPM Responded favorably to IV antibiotics but cultures were negative Review of Systems - Constitutional Constitutional: As Per HPI, Fatigue. absent: Anorexia, Chills, Daytime Sleepine ss, Excessive Sweating, Fever, Frequent Falls, Headache, Increased Appetite, Lethargy, Malaise, Night Sweats, Snoring, Sleep Apnea, Weight Gain, Weight Loss, Weakness, Other - EENT Eyes: As Per HPI. absent: Blind Spots, Blurred Vision, Change in Vision, Decrea sed Night Vision, Diplopia, Discharge, Dry Eye, Exophthalmos, Floaters, Irritation, Itchy Eyes, Loss of Peripheral Vision, Pain, Photophobia, Requires Corrective Lenses, Sees Flashes, Spots in Vision, Tunnel Vision, Other Visual Disturbances, Loss of Vision, Other Ears: As Per HPI. absent: Decreased Hearing, Ear Discharge, Ear Pain, Tinnitus, Abnormal Hearing, Disequilibrium, Dizziness, Other Nose/Mouth/Throat: As Per HPI. absent: Epistaxis, Nasal Congestion, Nasal Discharge, Nasal Obstruction, Nasal Trauma, Nose Pain, Post Nasal Drip, Sinus Pain, Sinus Pressure, Bleeding Gums, Change in Voice, Dental Pain, Dry Mouth, Dysphagia, Halitosis, Hoarsness, Lip Swelling, Mouth Lesions, Mouth Pain, Odynophagia, Sore Throat, Throat Swelling, Tongue Swelling, Facial Pain, Neck Pain, Neck Mass, Other - Cardiovascular Cardiovascular: As Per HPI, Dyspnea, Edema, Leg Edema. absent: Acrocyanosis, Chest Pain, Chest Pain at Rest, Chest Pain with Activity, Claudication, Diaphoresis, Dyspnea on Exertion, Irregular Heart Rhythm, Pain Radiating to Arm/Neck/Jaw, Leg Ulcers, Lightheadedness, Orthopnea, Palpitations, Paroxysmal Nocturnal Dyspnea, Pedal Edema, Radiating Pain, Rapid Heart Rate, Slow Heart Rate, Syncope, Other - Respiratory Respiratory: As Per HPI, Dyspnea, Dyspnea on Exertion, Chest Congestion, Excessive Mucous Production. absent: Cough, Hemoptysis, Wheezing, Snoring, Stridor, Pain on Inspiration, Change in Mucous Color, Pain with Coughing, Other - Gastrointestinal Gastrointestinal: As Per HPI. absent: Abdominal Pain, Belching, Bloating, Change in Bowel Habits, Change in Stool Character, Coffee Ground Emesis, Constipation, Cramping, Diarrhea, Dyspepsia, Dysphagia, Early Satiety, Excessive Flatus, Fecal Incontinence, Heartburn, Hematemesis, Hematochezia, Loose Stools, Melena, Nausea, Odynophagia, Temesmus, Vomiting, Other - Genitourinary Genitourinary: As Per HPI. absent: Change in Urinary Stream, Difficulty Urinating, Dysuria, Flank Pain, Hematuria, Pyuria, Nocturia, Urinary Incontinence, Urinary Frequency, Urinary Hesitance, Urinary Urgency, Voiding Freq/Small Amts, Freq UTI, Hx Renal/Bladder Calculi, Hx /Renal Surgery, Bladder Distension, Other - Reproductive: Male Reproductive:Male: As Per HPI - Musculoskeletal Musculoskeletal: As Per HPI. absent: Abnormal Gait, Arthralgias, Atrophy, Back Pain, Deformity, Joint Swelling, Limited Range of Motion, Loss of Height, Muscle Cramps, Muscle Weakness, Myalgias, Neck Pain, Numbness, Radiating Pain into Limb, Stiffness, Tingling, Other - Integumentary Integumentary: As Per HPI. absent: Acne, Alopecia, Bleeding Lesions, Change in Hair, Change in Nails, Change in Pigmentation, Changing Lesions, Dry Skin, Erythema, Furuncle, Hirsutism, Lesions, New Lesions, Non-Healing Lesions, Photosensitivity, Pruritus, Rash, Skin Pain, Skin Ulcer, Sores, Striae, Swelling, Unusual Bruising, Wounds, Jaundice, Other - Neurological Neurological: As Per HPI. absent: Abnormal Gait, Abnormal Hearing, Abnormal Movements, Abnormal Speech, Behavioral Changes, Burning Sensations, Confusion, Convulsions, Disequilibrium, Dizziness, Numbness, Focal Weakness, Frequent Falls, Headaches, Lack of Coordination, Loss of Vision, Memory Loss, Paresthesias, Radicular Pain, Restless Legs, Sensory Deficit, Syncope, Tingling, Tremor, Vertigo, Weakness, Other Visual Disturbances, Other - Psychiatric Psychiatric: As Per HPI. absent: Abnormal Sleep Pattern, Anhedonia, Anxiety, Auditory Hallucinations, Behavioral Changes, Change in Appetite, Change in Libido, Confusion, Depression, Difficulty Concentrating, Hallucinations, Homicidal Ideation, Hopelessness, Irritability, Memory Loss, Mood Swings, Panic Attacks, Paranoia, Suicidal Ideation, Visual Hallucinations, Tactile Hallucinations, Other - Endocrine Endocrine: As Per HPI. absent: Change in Body Appearance, Change in Libido, Cold Intolorance, Deepening of Voice, Excessive Sweating, Fatigue, Flushing, Heat Intolorance, Increase in Ring/Shoe/Hat Size, Palpitations, Polydipsia, Polyphagia, Polyuria, Other - Hematologic/Lymphatic Hematologic: As Per HPI. absent: Easy Bleeding, Easy Bruising, Lymphadenopathy, Other Past Patient History - Past Medical History & Family History Past Medical History?: Yes - Past Social History Smoking Status: Former Smoker Chewing Tobacco Use: No Cigar Use: No Alcohol: None Drugs: Denies Domestic Violence: Negative - CARDIAC Hx Cardiac Disorders: Yes Hx Cardia Arrhythmia: Yes Hx Congestive Heart Failure: Yes Hx Hypercholesterolemia: Yes Hx Hypertension: Yes Hx Pacemaker: Yes - PULMONARY Hx Respiratory Disorders: Yes Hx Pulmonary Edema: Yes - NEUROLOGICAL Hx Neurological Disorder: No - HEENT Hx HEENT Problems: Yes Hx Deafness: Yes (left ear) - RENAL Hx Chronic Kidney Disease: Yes Hx Renal Failure: Yes - ENDOCRINE/METABOLIC Hx Endocrine Disorders: No Hx Adrenal Cancer: No - HEMATOLOGICAL/ONCOLOGICAL Hx Blood Transfusions: Yes Hx Blood Transfusion Reaction: No Hx Hepatitis B: Yes - INTEGUMENTARY Hx Dermatological Problems: No - MUSCULOSKELETAL/RHEUMATOLOGICAL Hx Musculoskeletal Disorders: No Hx Falls: No - GASTROINTESTINAL Hx Gastrointestinal Disorders: Yes Other/Comment: Hx liver transplant - GENITOURINARY/GYNECOLOGICAL Hx Genitourinary Disorders: No - PSYCHIATRIC Hx Psychophysiologic Disorder: No Hx Substance Use: No - SURGICAL HISTORY Hx Surgeries: Yes Hx Liver Transplant: Yes (1998) Other/Comment: brain surgery 1984 - ANESTHESIA Hx Anesthesia: Yes Hx Anesthesia Reactions: No Meds Allergies/Adverse Reactions: Allergies Allergy/AdvReac Type Severity Reaction Status Date / Time No Known Allergies Allergy Verified 01/07/18 13:48 - Medications Medications: Current Medications Acetylcysteine (Acetylcysteine 20%) 2 ml INH RBID [facility] Last Admin: 01/17/18 08:31 Dose: 2 ml Albuterol/Ipratropium (Duoneb 3 Mg/0.5 Mg (3 Ml) Ud) 3 ml IH RQ4 [facility] Last Admin: 01/17/18 12:56 Dose: 3 ml Alprazolam (Xanax) 0.5 mg PO BID PRN PRN Reason: Anxiety Last Admin: 01/16/18 22:14 Dose: 0.5 mg Apixaban (Eliquis) 2.5 mg PO BID [facility]; Protocol Last Admin: 01/17/18 16:42 Dose: 2.5 mg Atorvastatin Calcium (Lipitor) 10 mg PO DAILY [facility] Last Admin: 01/17/18 08:42 Dose: 10 mg Benzocaine/Menthol (Cepacol Sore Throat) 1 cordell MM Q3 PRN PRN Reason: Sore Throat Last Admin: 01/16/18 08:47 Dose: 1 cordell Calcium Acetate (Phoslo) 667 mg PO TID [facility] Last Admin: 01/17/18 16:42 Dose: 667 mg Carvedilol (Coreg) 25 mg PO Q12 [facility] Last Admin: 01/17/18 08:42 Dose: 25 mg Famotidine (Pepcid) 20 mg PO DAILY [facility] Last Admin: 01/17/18 08:42 Dose: 20 mg Home Med (Entecavir [Baraclude]) 0.5 mg PO Q48H [facility] Last Admin: 01/16/18 08:45 Dose: 0.5 mg Ceftriaxone Sodium 1 gm/ (Sodium Chloride) 100 mls @ 100 mls/hr IVPB DAILY@1700 [facility]; Protocol Last Admin: 01/17/18 16:42 Dose: 100 mls/hr Promethazine HCl (Phenergan Syrup) 12.5 mg PO Q6 PRN PRN Reason: Cough Tacrolimus (Prograf Cap) 0.5 mg PO HS [facility] Last Admin: 01/16/18 22:13 Dose: 0.5 mg Tacrolimus (Prograf Cap) 1 mg PO HS [facility] Last Admin: 01/16/18 22:13 Dose: 1 mg Zolpidem Tartrate (Ambien) 5 mg PO HS PRN PRN Reason: Insomnia Last Admin: 01/16/18 22:14 Dose: 5 mg Physical Exam - Constitutional Appears: No Acute Distress, Chronically Ill - Head Exam Head Exam: ATRAUMATIC, NORMOCEPHALIC - Eye Exam Eye Exam: absent: Scleral icterus Pupil Exam: NORMAL ACCOMODATION - ENT Exam ENT Exam: Mucous Membranes Dry - Neck Exam Neck exam: Negative for: Lymphadenopathy - Respiratory Exam Respiratory Exam: Decreased Breath Sounds, Prolonged Expiratory Phase, Rales, Rhonchi - Cardiovascular Exam Cardiovascular Exam: REGULAR RHYTHM, +S1, +S2 - GI/Abdominal Exam GI & Abdominal Exam: Diminished Bowel Sounds, Soft. absent: Guarding, Rebound, Rigid, Tenderness - Rectal Exam Rectal Exam: Deferred - Exam Exam: NORMAL INSPECTION - Extremities Exam Extremities exam: Positive for: pedal edema, pedal pulses present. Negative for: calf tenderness, tenderness - Back Exam Back exam: absent: CVA tenderness (L), CVA tenderness (R) - Neurological Exam Neurological exam: Alert, CN II-XII Intact, Oriented x3, Reflexes Normal - Psychiatric Exam Psychiatric exam: Normal Mood - Skin Skin Exam: Dry Results - Vital Signs Recent Vital Signs: Last Vital Signs Temp 97.7 F 01/17/18 16:29 Pulse 69 01/17/18 16:29 Resp 20 01/17/18 16:29 BP 113/79 01/17/18 16:29 Pulse Ox 95 01/17/18 16:29 - Labs Result Diagrams: 01/15/18 06:30 01/15/18 06:30 Assessment & Plan - Assessment and Plan (Free Text) Assessment: resolving CHF/COPD/ Pneumonia in a 62 yo male with Hx of cardiomyopathy and liver transplant (Tacrolimus level 13, CD4 > 300 ) cont IV rx as ordered will follow with you
[2018-01-18] MEDS: Albuterol-Ipratrop 3 mg / 0.5 (3 ml) UD IH SCH ×6 (04:38→23:23)
[2018-01-18 06:29] LABS: HEMOGLOBIN 13.3 g/dL (12.0-18.0); MEAN CELL VOLUME 88.6 fl (80.0-94.0); MEAN CORPUSCULAR HEMOGLOBIN 28.9 pg (27.0-31.0); MEAN CORPUSCULAR HGB CONC 32.6 g/dL (33.0-37.0); RBC 4.6 Mil/uL (4.40-5.90); RED CELL DISTRIBUTION WIDTH 14.8 % (11.5-14.5); WHITE BLOOD COUNT 6.4 K/uL (4.8-10.8)
[2018-01-18 06:38] LABS: CALCIUM 9.3 mg/dL (8.4-10.2)
[2018-01-18] MEDS: Acetylcysteine 20% Inhal Soln (4ml) INH SCH ×2 (07:09→19:12)
[2018-01-18] MEDS: ENTECAVIR 0.5 MG PO SCH (09:26)
[2018-01-18] MEDS ORDERED: Artificial Tears Opht Soln OU PRN (13:10)
--- NOTE | 2018-01-18 13:14 | CP.PCM.PN ---
Subjective - Date & Time of Evaluation Date of Evaluation: 01/18/18 Time of Evaluation: 13:13 - Subjective Subjective: STILL COUGHING AND SOB Objective - Vital Signs/Intake and Output Vital Signs (last 24 hours): Temp Pulse Resp BP Pulse Ox 98.0 F 80 18 120/65 99 01/18/18 08:39 01/18/18 09:25 01/18/18 08:39 01/18/18 09:25 01/18/18 08:39 - Medications Medications: Current Medications Acetylcysteine (Acetylcysteine 20%) 2 ml INH RBID [facility] Last Admin: 01/18/18 07:09 Dose: 2 ml Albuterol/Ipratropium (Duoneb 3 Mg/0.5 Mg (3 Ml) Ud) 3 ml IH RQ4 [facility] Last Admin: 01/18/18 13:05 Dose: 3 ml Alprazolam (Xanax) 0.5 mg PO BID PRN PRN Reason: Anxiety Last Admin: 01/17/18 22:06 Dose: 0.5 mg Apixaban (Eliquis) 2.5 mg PO BID [facility]; Protocol Last Admin: 01/18/18 09:25 Dose: 2.5 mg Artificial Tears (Artificial Tears) 2 drop OU Q6 PRN PRN Reason: Dry eyes Atorvastatin Calcium (Lipitor) 10 mg PO DAILY [facility] Last Admin: 01/18/18 09:26 Dose: 10 mg Benzocaine/Menthol (Cepacol Sore Throat) 1 cordell MM Q3 PRN PRN Reason: Sore Throat Last Admin: 01/16/18 08:47 Dose: 1 cordell Benzonatate (Tessalon Perles) 200 mg PO Q8 PRN PRN Reason: Cough Calcium Acetate (Phoslo) 667 mg PO TID [facility] Last Admin: 01/18/18 09:26 Dose: 667 mg Carvedilol (Coreg) 25 mg PO Q12 [facility] Last Admin: 01/18/18 09:25 Dose: 25 mg Famotidine (Pepcid) 20 mg PO DAILY [facility] Last Admin: 01/18/18 09:26 Dose: 20 mg Home Med (Entecavir [Baraclude]) 0.5 mg PO Q48H [facility] Last Admin: 01/18/18 09:26 Dose: 0.5 mg Ceftriaxone Sodium 1 gm/ (Sodium Chloride) 100 mls @ 100 mls/hr IVPB DAILY@1700 [facility]; Protocol Last Admin: 01/17/18 16:42 Dose: 100 mls/hr Promethazine HCl (Phenergan Syrup) 12.5 mg PO Q6 PRN PRN Reason: Cough Tacrolimus (Prograf Cap) 0.5 mg PO HS [facility] Last Admin: 01/17/18 21:25 Dose: 0.5 mg Tacrolimus (Prograf Cap) 1 mg PO HS [facility] Last Admin: 01/17/18 21:25 Dose: 1 mg Zolpidem Tartrate (Ambien) 5 mg PO HS PRN PRN Reason: insomnia Last Admin: 01/17/18 23:01 Dose: 5 mg - Labs Labs: 01/18/18 05:50 01/18/18 05:50 - Constitutional Appears: Chronically Ill - Head Exam Head Exam: ATRAUMATIC, NORMAL INSPECTION, NORMOCEPHALIC - Eye Exam Eye Exam: EOMI, Normal appearance, PERRL Pupil Exam: NORMAL ACCOMODATION, PERRL - ENT Exam ENT Exam: Mucous Membranes Moist, Normal Exam - Neck Exam Neck Exam: Full ROM, Normal Inspection. absent: Lymphadenopathy - Respiratory Exam Respiratory Exam: Decreased Breath Sounds, Rales, NORMAL BREATHING PATTERN - Cardiovascular Exam Cardiovascular Exam: REGULAR RHYTHM, +S1, +S2. absent: Murmur - GI/Abdominal Exam GI & Abdominal Exam: Soft, Normal Bowel Sounds. absent: Tenderness - Rectal Exam Rectal Exam: NORMAL INSPECTION - Exam Exam: NORMAL INSPECTION - Extremities Exam Extremities Exam: Full ROM, Normal Capillary Refill, Normal Inspection. absent: Joint Swelling, Pedal Edema - Back Exam Back Exam: NORMAL INSPECTION - Neurological Exam Neurological Exam: Alert, Awake, CN II-XII Intact, Normal Gait, Oriented x3 - Psychiatric Exam Psychiatric exam: Normal Affect, Normal Mood - Skin Skin Exam: Dry, Intact, Normal Color, Warm Assessment and Plan - Assessment and Plan (Free Text) Assessment: CHF PNEUMONIA Plan: CONTINUE PRESENT RX
--- NOTE | 2018-01-18 14:29 | RAD ---
Date of service: 01/18/2018 PROCEDURE: CHEST RADIOGRAPH, 1 VIEW HISTORY: pneumonia COMPARISON: 01/14/2018 FINDINGS: LUNGS: Improved aeration at the lung bases particularly left lower lobe. PLEURA: Small right pleural effusion. CARDIOVASCULAR: No aortic atherosclerotic calcification present. Cardiomegaly, pulmonary vascular congestion. Position/ configuration of pacemaker OSSEOUS STRUCTURES: No significant abnormalities. VISUALIZED UPPER ABDOMEN: Normal. OTHER FINDINGS: None. IMPRESSION: Improved aeration particularly left lower lobe. Otherwise, stable study.
[2018-01-19] MEDS: Albuterol-Ipratrop 3 mg / 0.5 (3 ml) UD IH SCH ×6 (04:54→23:52)
[2018-01-19] MEDS: Acetylcysteine 20% Inhal Soln (4ml) INH SCH ×2 (07:49→19:11)
--- NOTE | 2018-01-19 12:20 | CP.PCM.PN ---
Subjective - Date & Time of Evaluation Date of Evaluation: 01/19/18 Time of Evaluation: 12:20 - Subjective Subjective: COUGHING UP SPUTUM SOB IMPROVING Objective - Vital Signs/Intake and Output Vital Signs (last 24 hours): Temp Pulse Resp BP Pulse Ox 97.7 F 69 20 109/66 97 01/19/18 10:00 01/19/18 10:05 01/19/18 10:00 01/19/18 10:05 01/19/18 10:00 - Medications Medications: Current Medications Acetylcysteine (Acetylcysteine 20%) 2 ml INH RBID [facility] Last Admin: 01/19/18 07:49 Dose: 2 ml Albuterol/Ipratropium (Duoneb 3 Mg/0.5 Mg (3 Ml) Ud) 3 ml IH RQ4 [facility] Last Admin: 01/19/18 11:48 Dose: 3 ml Alprazolam (Xanax) 0.5 mg PO BID PRN PRN Reason: Anxiety Last Admin: 01/18/18 21:53 Dose: 0.5 mg Apixaban (Eliquis) 2.5 mg PO BID [facility]; Protocol Last Admin: 01/19/18 10:06 Dose: 2.5 mg Artificial Tears (Artificial Tears) 2 drop OU Q6 PRN PRN Reason: Dry eyes Last Admin: 01/18/18 17:16 Dose: 2 drop Atorvastatin Calcium (Lipitor) 10 mg PO DAILY [facility] Last Admin: 01/19/18 10:06 Dose: 10 mg Benzocaine/Menthol (Cepacol Sore Throat) 1 cordell MM Q3 PRN PRN Reason: Sore Throat Last Admin: 01/16/18 08:47 Dose: 1 cordell Benzonatate (Tessalon Perles) 200 mg PO Q8 PRN PRN Reason: Cough Last Admin: 01/18/18 17:16 Dose: 200 mg Calcium Acetate (Phoslo) 667 mg PO TID [facility] Last Admin: 01/19/18 10:05 Dose: 667 mg Carvedilol (Coreg) 25 mg PO Q12 [facility] Last Admin: 01/19/18 10:05 Dose: 25 mg Famotidine (Pepcid) 20 mg PO DAILY [facility] Last Admin: 01/19/18 10:06 Dose: 20 mg Home Med (Entecavir [Baraclude]) 0.5 mg PO Q48H [facility] Last Admin: 01/18/18 09:26 Dose: 0.5 mg Ceftriaxone Sodium 1 gm/ (Sodium Chloride) 100 mls @ 100 mls/hr IVPB DAILY@1700 [facility]; Protocol Last Admin: 01/18/18 17:19 Dose: 100 mls/hr Promethazine HCl (Phenergan Syrup) 12.5 mg PO Q6 PRN PRN Reason: Cough Tacrolimus (Prograf Cap) 0.5 mg PO HS [facility] Last Admin: 01/18/18 21:52 Dose: 0.5 mg Tacrolimus (Prograf Cap) 1 mg PO HS [facility] Last Admin: 01/18/18 21:52 Dose: 1 mg Zolpidem Tartrate (Ambien) 5 mg PO HS PRN PRN Reason: insomnia Last Admin: 01/18/18 21:53 Dose: 5 mg - Labs Labs: 01/18/18 05:50 01/18/18 05:50 - Constitutional Appears: Chronically Ill - Head Exam Head Exam: ATRAUMATIC, NORMAL INSPECTION, NORMOCEPHALIC - Eye Exam Eye Exam: EOMI, Normal appearance, PERRL Pupil Exam: NORMAL ACCOMODATION, PERRL - ENT Exam ENT Exam: Mucous Membranes Moist, Normal Exam - Neck Exam Neck Exam: Full ROM, Normal Inspection. absent: Lymphadenopathy - Respiratory Exam Respiratory Exam: Decreased Breath Sounds, Rales, NORMAL BREATHING PATTERN - Cardiovascular Exam Cardiovascular Exam: REGULAR RHYTHM, +S1, +S2. absent: Murmur - GI/Abdominal Exam GI & Abdominal Exam: Soft, Normal Bowel Sounds. absent: Tenderness - Rectal Exam Rectal Exam: NORMAL INSPECTION - Extremities Exam Extremities Exam: Full ROM, Normal Capillary Refill, Normal Inspection. absent: Joint Swelling, Pedal Edema - Back Exam Back Exam: NORMAL INSPECTION - Neurological Exam Neurological Exam: Alert, Awake, CN II-XII Intact, Normal Gait, Oriented x3 - Psychiatric Exam Psychiatric exam: Normal Affect, Normal Mood - Skin Skin Exam: Dry, Intact, Normal Color, Warm Assessment and Plan - Assessment and Plan (Free Text) Assessment: COPD PNEUMONIA HTN Plan: CONTINUE CURRENT TX WILL NEED IV ANTIBIOTICS X 5 MORE DAYS
[2018-01-20] MEDS: Albuterol-Ipratrop 3 mg / 0.5 (3 ml) UD IH SCH ×6 (04:40→23:30)
[2018-01-20] MEDS: Acetylcysteine 20% Inhal Soln (4ml) INH SCH ×2 (07:16→19:27)
[2018-01-20] MEDS: ENTECAVIR 0.5 MG PO SCH (08:44)
--- NOTE | 2018-01-20 10:32 | CP.PCM.PN ---
Subjective - Date & Time of Evaluation Date of Evaluation: 01/20/18 Time of Evaluation: 10:33 - Subjective Subjective: CONTINUES TO COUGH SOB IMPROVING ADVISED SUBACUTE CARE PLACEMENT BUT DECLINED--WANTS TO GO HOME Objective - Vital Signs/Intake and Output Vital Signs (last 24 hours): Temp Pulse Resp BP Pulse Ox 97.5 F L 69 20 129/86 88 L 01/20/18 08:27 01/20/18 08:43 01/20/18 08:27 01/20/18 08:43 01/20/18 08:27 - Medications Medications: Current Medications Acetylcysteine (Acetylcysteine 20%) 2 ml INH RBID [facility] Last Admin: 01/20/18 07:16 Dose: 2 ml Albuterol/Ipratropium (Duoneb 3 Mg/0.5 Mg (3 Ml) Ud) 3 ml IH RQ4 [facility] Last Admin: 01/20/18 07:17 Dose: 3 ml Alprazolam (Xanax) 0.5 mg PO BID PRN PRN Reason: Anxiety Last Admin: 01/19/18 21:30 Dose: 0.5 mg Apixaban (Eliquis) 2.5 mg PO BID [facility]; Protocol Last Admin: 01/20/18 08:43 Dose: 2.5 mg Artificial Tears (Artificial Tears) 2 drop OU Q6 PRN PRN Reason: Dry eyes Last Admin: 01/18/18 17:16 Dose: 2 drop Atorvastatin Calcium (Lipitor) 10 mg PO DAILY [facility] Last Admin: 01/20/18 08:44 Dose: 10 mg Benzocaine/Menthol (Cepacol Sore Throat) 1 cordell MM Q3 PRN PRN Reason: Sore Throat Last Admin: 01/16/18 08:47 Dose: 1 cordell Benzonatate (Tessalon Perles) 200 mg PO Q8 PRN PRN Reason: Cough Last Admin: 01/18/18 17:16 Dose: 200 mg Calcium Acetate (Phoslo) 667 mg PO TID [facility] Last Admin: 01/20/18 08:44 Dose: 667 mg Carvedilol (Coreg) 25 mg PO Q12 [facility] Last Admin: 01/20/18 08:43 Dose: 25 mg Famotidine (Pepcid) 20 mg PO DAILY [facility] Last Admin: 01/20/18 08:44 Dose: 20 mg Home Med (Entecavir [Baraclude]) 0.5 mg PO Q48H [facility] Last Admin: 01/20/18 08:44 Dose: 0.5 mg Ceftriaxone Sodium 1 gm/ (Sodium Chloride) 100 mls @ 100 mls/hr IVPB DAILY@1700 [facility]; Protocol Last Admin: 01/19/18 16:19 Dose: 100 mls/hr Promethazine HCl (Phenergan Syrup) 12.5 mg PO Q6 PRN PRN Reason: Cough Tacrolimus (Prograf Cap) 0.5 mg PO HS [facility] Last Admin: 01/19/18 21:30 Dose: 0.5 mg Tacrolimus (Prograf Cap) 1 mg PO HS [facility] Last Admin: 01/19/18 21:30 Dose: 1 mg Zolpidem Tartrate (Ambien) 5 mg PO HS PRN PRN Reason: insomnia Last Admin: 01/19/18 21:31 Dose: 5 mg - Labs Labs: 01/18/18 05:50 01/18/18 05:50 - Constitutional Appears: Chronically Ill - Head Exam Head Exam: ATRAUMATIC, NORMAL INSPECTION, NORMOCEPHALIC - Eye Exam Eye Exam: EOMI, Normal appearance, PERRL Pupil Exam: NORMAL ACCOMODATION, PERRL - ENT Exam ENT Exam: Mucous Membranes Moist, Normal Exam - Neck Exam Neck Exam: Full ROM, Normal Inspection. absent: Lymphadenopathy - Respiratory Exam Respiratory Exam: Decreased Breath Sounds, Prolonged Expiratory Phase, Rales, Wheezes, NORMAL BREATHING PATTERN - Cardiovascular Exam Cardiovascular Exam: REGULAR RHYTHM, +S1, +S2. absent: Murmur - GI/Abdominal Exam GI & Abdominal Exam: Soft, Normal Bowel Sounds. absent: Tenderness - Rectal Exam Rectal Exam: NORMAL INSPECTION - Extremities Exam Extremities Exam: Full ROM, Normal Capillary Refill, Normal Inspection. absent: Joint Swelling, Pedal Edema - Back Exam Back Exam: NORMAL INSPECTION - Neurological Exam Neurological Exam: Alert, Awake, CN II-XII Intact, Normal Gait, Oriented x3 - Psychiatric Exam Psychiatric exam: Normal Affect, Normal Mood - Skin Skin Exam: Dry, Intact, Normal Color, Warm Assessment and Plan - Assessment and Plan (Free Text) Assessment: CHF PNEUMONIA--IMPROVED ASHD ARRYTHMIAS S/P LIVER TRANSPLANT CHRONIC KIDNEY DZ Plan: CONTINUE PRESENT RX DIRECTOR OF CLINICAL EDUCATION FOR D/C PLANING
--- NOTE | 2018-01-20 14:58 | CP.PCM.PN ---
Subjective - Date & Time of Evaluation Date of Evaluation: 01/20/18 Time of Evaluation: 08:00 - Subjective Subjective: weak bedridden' less SOB Objective - Vital Signs/Intake and Output Vital Signs (last 24 hours): Temp Pulse Resp BP Pulse Ox 97.5 F L 69 20 129/86 88 L 01/20/18 08:27 01/20/18 08:43 01/20/18 08:27 01/20/18 08:43 01/20/18 08:27 - Medications Medications: Current Medications Acetylcysteine (Acetylcysteine 20%) 2 ml INH RBID [facility] Last Admin: 01/20/18 07:16 Dose: 2 ml Albuterol/Ipratropium (Duoneb 3 Mg/0.5 Mg (3 Ml) Ud) 3 ml IH RQ4 [facility] Last Admin: 01/20/18 11:06 Dose: 3 ml Alprazolam (Xanax) 0.5 mg PO BID PRN PRN Reason: Anxiety Last Admin: 01/19/18 21:30 Dose: 0.5 mg Apixaban (Eliquis) 2.5 mg PO BID [facility]; Protocol Last Admin: 01/20/18 08:43 Dose: 2.5 mg Artificial Tears (Artificial Tears) 2 drop OU Q6 PRN PRN Reason: Dry eyes Last Admin: 01/18/18 17:16 Dose: 2 drop Atorvastatin Calcium (Lipitor) 10 mg PO DAILY [facility] Last Admin: 01/20/18 08:44 Dose: 10 mg Benzocaine/Menthol (Cepacol Sore Throat) 1 cordell MM Q3 PRN PRN Reason: Sore Throat Last Admin: 01/16/18 08:47 Dose: 1 cordell Benzonatate (Tessalon Perles) 200 mg PO Q8 PRN PRN Reason: Cough Last Admin: 01/18/18 17:16 Dose: 200 mg Calcium Acetate (Phoslo) 667 mg PO TID [facility] Last Admin: 01/20/18 12:40 Dose: 667 mg Carvedilol (Coreg) 25 mg PO Q12 [facility] Last Admin: 01/20/18 08:43 Dose: 25 mg Famotidine (Pepcid) 20 mg PO DAILY [facility] Last Admin: 01/20/18 08:44 Dose: 20 mg Home Med (Entecavir [Baraclude]) 0.5 mg PO Q48H [facility] Last Admin: 01/20/18 08:44 Dose: 0.5 mg Ceftriaxone Sodium 1 gm/ (Sodium Chloride) 100 mls @ 100 mls/hr IVPB DAILY@1700 [facility]; Protocol Last Admin: 01/19/18 16:19 Dose: 100 mls/hr Promethazine HCl (Phenergan Syrup) 12.5 mg PO Q6 PRN PRN Reason: Cough Tacrolimus (Prograf Cap) 0.5 mg PO HS [facility] Last Admin: 01/19/18 21:30 Dose: 0.5 mg Tacrolimus (Prograf Cap) 1 mg PO HS [facility] Last Admin: 01/19/18 21:30 Dose: 1 mg Zolpidem Tartrate (Ambien) 5 mg PO HS PRN PRN Reason: insomnia Last Admin: 01/19/18 21:31 Dose: 5 mg - Labs Labs: 01/18/18 05:50 01/18/18 05:50 - Constitutional Appears: Non-toxic - Head Exam Head Exam: NORMOCEPHALIC - Eye Exam Eye Exam: PERRL - ENT Exam ENT Exam: Mucous Membranes Dry - Neck Exam Neck Exam: absent: Lymphadenopathy - Respiratory Exam Respiratory Exam: Clear to Ausculation Bilateral - Cardiovascular Exam Cardiovascular Exam: REGULAR RHYTHM, +S1, +S2 - GI/Abdominal Exam GI & Abdominal Exam: Distended, Soft - Rectal Exam Rectal Exam: Deferred Assessment and Plan - Assessment and Plan (Free Text) Assessment: cont rx as ordered
[2018-01-20] MEDS: Benzocaine/Menthol (Cepacol) Lozenge MM PRN (21:29)
[2018-01-21] MEDS: Albuterol-Ipratrop 3 mg / 0.5 (3 ml) UD IH SCH ×5 (05:11→19:12)
[2018-01-21] MEDS: Acetylcysteine 20% Inhal Soln (4ml) INH SCH ×2 (07:39→19:12)
--- NOTE | 2018-01-21 09:14 | CP.PCM.PN ---
Subjective - Date & Time of Evaluation Date of Evaluation: 01/21/18 Time of Evaluation: 09:14 - Subjective Subjective: PARTICIPATING WITH PT/OT LESS SOB Objective - Vital Signs/Intake and Output Vital Signs (last 24 hours): Temp Pulse Resp BP Pulse Ox 98.3 F 69 18 147/90 97 01/21/18 08:29 01/21/18 08:29 01/21/18 08:29 01/21/18 08:29 01/21/18 08:29 - Medications Medications: Current Medications Acetylcysteine (Acetylcysteine 20%) 2 ml INH RBID [facility] Last Admin: 01/21/18 07:39 Dose: 2 ml Albuterol/Ipratropium (Duoneb 3 Mg/0.5 Mg (3 Ml) Ud) 3 ml IH RQ4 [facility] Last Admin: 01/21/18 07:39 Dose: 3 ml Alprazolam (Xanax) 0.5 mg PO BID PRN PRN Reason: Anxiety Last Admin: 01/20/18 21:27 Dose: 0.5 mg Apixaban (Eliquis) 2.5 mg PO BID [facility]; Protocol Last Admin: 01/20/18 17:41 Dose: 2.5 mg Artificial Tears (Artificial Tears) 2 drop OU Q6 PRN PRN Reason: Dry eyes Last Admin: 01/18/18 17:16 Dose: 2 drop Atorvastatin Calcium (Lipitor) 10 mg PO DAILY [facility] Last Admin: 01/20/18 08:44 Dose: 10 mg Benzocaine/Menthol (Cepacol Sore Throat) 1 cordell MM Q3 PRN PRN Reason: Sore Throat Last Admin: 01/20/18 21:29 Dose: 1 cordell Benzonatate (Tessalon Perles) 200 mg PO Q8 PRN PRN Reason: Cough Last Admin: 01/18/18 17:16 Dose: 200 mg Calcium Acetate (Phoslo) 667 mg PO TID [facility] Last Admin: 01/20/18 17:41 Dose: 667 mg Carvedilol (Coreg) 25 mg PO Q12 [facility] Last Admin: 01/20/18 21:28 Dose: 25 mg Famotidine (Pepcid) 20 mg PO DAILY [facility] Last Admin: 01/20/18 08:44 Dose: 20 mg Home Med (Entecavir [Baraclude]) 0.5 mg PO Q48H [facility] Last Admin: 01/20/18 08:44 Dose: 0.5 mg Ceftriaxone Sodium 1 gm/ (Sodium Chloride) 100 mls @ 100 mls/hr IVPB DAILY@1700 [facility]; Protocol Last Admin: 01/20/18 17:40 Dose: 100 mls/hr Promethazine HCl (Phenergan Syrup) 12.5 mg PO Q6 PRN PRN Reason: Cough Tacrolimus (Prograf Cap) 0.5 mg PO HS [facility] Last Admin: 01/20/18 21:28 Dose: 0.5 mg Tacrolimus (Prograf Cap) 1 mg PO HS [facility] Last Admin: 01/20/18 21:28 Dose: 1 mg Zolpidem Tartrate (Ambien) 5 mg PO HS PRN PRN Reason: insomnia Last Admin: 01/20/18 21:27 Dose: 5 mg - Labs Labs: 01/18/18 05:50 01/18/18 05:50 - Constitutional Appears: No Acute Distress - Head Exam Head Exam: ATRAUMATIC, NORMAL INSPECTION, NORMOCEPHALIC - Eye Exam Eye Exam: EOMI, Normal appearance, PERRL Pupil Exam: NORMAL ACCOMODATION, PERRL - ENT Exam ENT Exam: Mucous Membranes Moist, Normal Exam - Neck Exam Neck Exam: Full ROM, Normal Inspection. absent: Lymphadenopathy - Respiratory Exam Respiratory Exam: Prolonged Expiratory Phase, NORMAL BREATHING PATTERN - Cardiovascular Exam Cardiovascular Exam: REGULAR RHYTHM, +S1, +S2. absent: Murmur - GI/Abdominal Exam GI & Abdominal Exam: Soft, Normal Bowel Sounds. absent: Tenderness - Rectal Exam Rectal Exam: NORMAL INSPECTION - Extremities Exam Extremities Exam: Full ROM, Normal Capillary Refill, Normal Inspection. absent: Joint Swelling, Pedal Edema - Back Exam Back Exam: NORMAL INSPECTION - Neurological Exam Neurological Exam: Alert, Awake, CN II-XII Intact, Normal Gait, Oriented x3 - Psychiatric Exam Psychiatric exam: Normal Affect, Normal Mood - Skin Skin Exam: Dry, Intact, Normal Color, Warm Assessment and Plan - Assessment and Plan (Free Text) Assessment: CHF/PNEUMONIA--IMPROVING Plan: CONTINUE CURRENT RX [facility] [employer] FOR D/C PLANNING PT REFUSES SUBACUTE CARE
[2018-01-21 15:36] LABS: HEMOGLOBIN 12.7 g/dL (12.0-18.0); MEAN CELL VOLUME 88.4 fl (80.0-94.0); MEAN CORPUSCULAR HEMOGLOBIN 28.2 pg (27.0-31.0); MEAN CORPUSCULAR HGB CONC 31.9 g/dL (33.0-37.0); RBC 4.5 Mil/uL (4.40-5.90); RED CELL DISTRIBUTION WIDTH 14.7 % (11.5-14.5); WHITE BLOOD COUNT 5.1 K/uL (4.8-10.8)
--- NOTE | 2018-01-21 15:36 | CP.PCM.PN ---
Subjective - Date & Time of Evaluation Date of Evaluation: 01/21/18 Time of Evaluation: 15:33 - Subjective Subjective: pt has less sob. labs drawn and pending/ Objective - Vital Signs/Intake and Output Vital Signs (last 24 hours): Temp Pulse Resp BP Pulse Ox 98.3 F 69 18 147/90 97 01/21/18 10:00 01/21/18 10:09 01/21/18 10:00 01/21/18 10:09 01/21/18 10:00 - Medications Medications: Current Medications Acetylcysteine (Acetylcysteine 20%) 2 ml INH RBID [facility] Last Admin: 01/21/18 07:39 Dose: 2 ml Albuterol/Ipratropium (Duoneb 3 Mg/0.5 Mg (3 Ml) Ud) 3 ml IH RQ4 [facility] Last Admin: 01/21/18 15:27 Dose: 3 ml Alprazolam (Xanax) 0.5 mg PO BID PRN PRN Reason: Anxiety Last Admin: 01/20/18 21:27 Dose: 0.5 mg Amlodipine Besylate (Norvasc) 5 mg PO DAILY [facility] Amoxicillin/Clavulanate Potassium (Augmentin 875 Mg-125 Mg Tab) 1 tab PO Q12 [facility]; Protocol Apixaban (Eliquis) 2.5 mg PO BID [facility]; Protocol Last Admin: 01/21/18 10:08 Dose: 2.5 mg Artificial Tears (Artificial Tears) 2 drop OU Q6 PRN PRN Reason: Dry eyes Last Admin: 01/18/18 17:16 Dose: 2 drop Atorvastatin Calcium (Lipitor) 10 mg PO DAILY [facility] Last Admin: 01/21/18 10:09 Dose: 10 mg Benzocaine/Menthol (Cepacol Sore Throat) 1 cordell MM Q3 PRN PRN Reason: Sore Throat Last Admin: 01/20/18 21:29 Dose: 1 cordell Benzonatate (Tessalon Perles) 200 mg PO Q8 PRN PRN Reason: Cough Last Admin: 01/18/18 17:16 Dose: 200 mg Calcium Acetate (Phoslo) 667 mg PO TID [facility] Last Admin: 01/21/18 13:35 Dose: 667 mg Carvedilol (Coreg) 25 mg PO Q12 [facility] Last Admin: 01/21/18 10:09 Dose: 25 mg Famotidine (Pepcid) 20 mg PO DAILY [facility] Last Admin: 01/21/18 10:09 Dose: 20 mg Home Med (Entecavir [Baraclude]) 0.5 mg PO Q48H [facility] Last Admin: 01/20/18 08:44 Dose: 0.5 mg Promethazine HCl (Phenergan Syrup) 12.5 mg PO Q6 PRN PRN Reason: Cough Tacrolimus (Prograf Cap) 0.5 mg PO HS [facility] Last Admin: 01/20/18 21:28 Dose: 0.5 mg Tacrolimus (Prograf Cap) 1 mg PO HS [facility] Last Admin: 01/20/18 21:28 Dose: 1 mg Zolpidem Tartrate (Ambien) 5 mg PO HS PRN PRN Reason: insomnia Last Admin: 01/20/18 21:27 Dose: 5 mg - Labs Labs: 01/18/18 05:50 01/18/18 05:50 - Constitutional Appears: Well - Head Exam Head Exam: ATRAUMATIC, NORMAL INSPECTION, NORMOCEPHALIC - Eye Exam Eye Exam: EOMI, Normal appearance, PERRL. absent: Conjunctival injection, Nystagmus, Periorbital swelling, Periorbital tenderness, Scleral icterus Pupil Exam: NORMAL ACCOMODATION, PERRL - ENT Exam ENT Exam: Mucous Membranes Dry. absent: Mucous Membranes Moist, Normal Exam, Normal External Ear Exam, Normal Oropharynx, TM's Normal Bilaterally - Neck Exam Neck Exam: Full ROM, Normal Inspection - Respiratory Exam Respiratory Exam: Rhonchi, NORMAL BREATHING PATTERN. absent: Accessory Muscle Use, Chest Wall Tenderness, Decreased Breath Sounds, Clear to Ausculation Bilateral, Prolonged Expiratory Phase, Rales, Wheezes, Respiratory Distress, Stridor - Cardiovascular Exam Cardiovascular Exam: Irregular Rhythm, +S1, +S2, Murmur. absent: Bradycardia, Tachycardia, Clicks, Diastolic murmur, Gallop, REGULAR RHYTHM, JVD, RRR, Rubs, +S4 - GI/Abdominal Exam GI & Abdominal Exam: Soft, Normal Bowel Sounds. absent: Bruit, Distended, Firm, Guarding, Rigid, Tenderness, Diminished Bowel Sounds, Hernia, Hyperactive Bowel Sounds, Hypoactive Bowel Sounds, Organomegaly, Pulsatile Mass, Rebound, Mass - Rectal Exam Rectal Exam: Deferred - Extremities Exam Extremities Exam: Full ROM, Normal Capillary Refill, Normal Inspection. absent: Calf Tenderness, Joint Swelling, Pedal Edema, Tenderness - Back Exam Back Exam: NORMAL INSPECTION. absent: CVA tenderness (L), CVA tenderness (R), Full ROM, muscle spasm, paraspinal tenderness, rash noted, tenderness, vertebral tenderness - Neurological Exam Neurological Exam: Alert, Awake, CN II-XII Intact, Normal Gait, Oriented x3. absent: Abnormal Gait, Altered, Motor Sensory Deficit, Reflexes Normal - Psychiatric Exam Psychiatric exam: Normal Affect, Normal Mood. absent: Agitated, Anxious, Depressed, Flat Affect, Homicidal Ideation, Manic, Suicidal Ideation - Skin Skin Exam: Dry, Intact, Normal Color, Warm. absent: Abrasion, Cyanosis, Diaphoretic, Erythema, Mottled, Pallor, Pallor, Petechiae, Rash, Urticaria, Vesicles Assessment and Plan (1) Acute on chronic combined systolic and diastolic congestive heart failure Status: Chronic (2) Chronic atrial fibrillation Status: Chronic (3) S/P placement of cardiac pacemaker Status: Chronic (4) Generalized muscle weakness Status: Chronic (5) ARF (acute renal failure) Status: Acute - Assessment and Plan (Free Text) Plan: labs ordered and drawn. results pending. will restart diuretics once cr improves. cont anticoag and pt. 45 min total care time.
[2018-01-21 15:41] LABS: CALCIUM 9.2 mg/dL (8.4-10.2)
[2018-01-21] MEDS: Amoxicillin-Clav 875-125 mg Tab PO SCH (21:43)
[2018-01-22] MEDS: Albuterol-Ipratrop 3 mg / 0.5 (3 ml) UD IH SCH ×6 (04:00→19:44)
[2018-01-22] MEDS: Acetylcysteine 20% Inhal Soln (4ml) INH SCH ×2 (07:40→19:44)
[2018-01-22] MEDS: Amoxicillin-Clav 875-125 mg Tab PO SCH ×2 (09:31→21:46)
[2018-01-22] MEDS: ENTECAVIR 0.5 MG PO SCH (09:32)
--- NOTE | 2018-01-22 09:56 | CP.PCM.PN ---
Subjective - Date & Time of Evaluation Date of Evaluation: 01/22/18 Time of Evaluation: 09:57 - Subjective Subjective: STILL COUGHING MUSCLE STRENGHT IMPROVING DECLINED SUBACUTE CARE Objective - Vital Signs/Intake and Output Vital Signs (last 24 hours): Temp Pulse Resp BP Pulse Ox 97.3 F L 69 18 124/80 97 01/22/18 08:28 01/22/18 09:32 01/22/18 08:28 01/22/18 09:32 01/22/18 08:28 - Medications Medications: Current Medications Acetylcysteine (Acetylcysteine 20%) 2 ml INH RBID [facility] Last Admin: 01/22/18 07:40 Dose: 2 ml Albuterol/Ipratropium (Duoneb 3 Mg/0.5 Mg (3 Ml) Ud) 3 ml IH RQ4 [facility] Last Admin: 01/22/18 07:40 Dose: 3 ml Alprazolam (Xanax) 0.5 mg PO BID PRN PRN Reason: Anxiety Last Admin: 01/21/18 21:43 Dose: 0.5 mg Amlodipine Besylate (Norvasc) 5 mg PO DAILY [facility] Last Admin: 01/22/18 09:32 Dose: 5 mg Amoxicillin/Clavulanate Potassium (Augmentin 875 Mg-125 Mg Tab) 1 tab PO Q12 [facility]; Protocol Last Admin: 01/22/18 09:31 Dose: 1 tab Artificial Tears (Artificial Tears) 2 drop OU Q6 PRN PRN Reason: Dry eyes Last Admin: 01/18/18 17:16 Dose: 2 drop Atorvastatin Calcium (Lipitor) 10 mg PO DAILY [facility] Last Admin: 01/22/18 09:32 Dose: 10 mg Benzocaine/Menthol (Cepacol Sore Throat) 1 cordell MM Q3 PRN PRN Reason: Sore Throat Last Admin: 01/20/18 21:29 Dose: 1 cordell Benzonatate (Tessalon Perles) 200 mg PO Q8 PRN PRN Reason: Cough Last Admin: 01/18/18 17:16 Dose: 200 mg Calcium Acetate (Phoslo) 667 mg PO TID [facility] Last Admin: 01/22/18 09:32 Dose: 667 mg Carvedilol (Coreg) 25 mg PO Q12 [facility] Last Admin: 01/22/18 09:31 Dose: 25 mg Famotidine (Pepcid) 20 mg PO DAILY [facility] Last Admin: 01/22/18 09:32 Dose: 20 mg Home Med (Entecavir [Baraclude]) 0.5 mg PO Q48H [facility] Last Admin: 01/22/18 09:32 Dose: 0.5 mg Promethazine HCl (Phenergan Syrup) 12.5 mg PO Q6 PRN PRN Reason: Cough Tacrolimus (Prograf Cap) 0.5 mg PO HS [facility] Last Admin: 01/21/18 21:43 Dose: 0.5 mg Tacrolimus (Prograf Cap) 1 mg PO HS [facility] Last Admin: 01/21/18 21:43 Dose: 1 mg Zolpidem Tartrate (Ambien) 5 mg PO HS PRN PRN Reason: insomnia Last Admin: 01/21/18 23:03 Dose: 5 mg - Labs Labs: 01/21/18 14:52 01/21/18 14:52 - Constitutional Appears: Chronically Ill - Head Exam Head Exam: ATRAUMATIC, NORMAL INSPECTION, NORMOCEPHALIC - Eye Exam Eye Exam: EOMI, Normal appearance, PERRL Pupil Exam: NORMAL ACCOMODATION, PERRL - ENT Exam ENT Exam: Mucous Membranes Moist, Normal Exam - Neck Exam Neck Exam: Full ROM, Normal Inspection. absent: Lymphadenopathy - Respiratory Exam Respiratory Exam: Decreased Breath Sounds, Prolonged Expiratory Phase, Rales, NORMAL BREATHING PATTERN - Cardiovascular Exam Cardiovascular Exam: REGULAR RHYTHM, +S1, +S2. absent: Murmur - GI/Abdominal Exam GI & Abdominal Exam: Soft, Normal Bowel Sounds. absent: Tenderness - Rectal Exam Rectal Exam: NORMAL INSPECTION - Extremities Exam Extremities Exam: Full ROM, Pedal Edema. absent: Joint Swelling - Back Exam Back Exam: NORMAL INSPECTION - Neurological Exam Neurological Exam: Alert, Awake, CN II-XII Intact, Normal Gait, Oriented x3 - Psychiatric Exam Psychiatric exam: Normal Affect, Normal Mood - Skin Skin Exam: Dry, Intact, Normal Color, Warm Assessment and Plan - Assessment and Plan (Free Text) Assessment: CHF--IMPROVING PNEUMONIA-IMPROVED S/P LIVER TRANSPLANT ESRD DECONDITIONING Plan: CONTINUE CURRENT RX FOR D/C HOME THIS WEEK
[2018-01-23] MEDS ORDERED: Promethazine 12.5 mg/10 ml Syrup PO PRN (01:30)
[2018-01-23] MEDS: Albuterol-Ipratrop 3 mg / 0.5 (3 ml) UD IH SCH ×7 (05:08→23:31)
[2018-01-23] MEDS: Acetylcysteine 20% Inhal Soln (4ml) INH SCH ×2 (07:04→19:14)
[2018-01-23] MEDS: Amoxicillin-Clav 875-125 mg Tab PO SCH ×2 (09:15→22:10)
--- NOTE | 2018-01-23 11:08 | CP.PCM.PN ---
Subjective - Date & Time of Evaluation Date of Evaluation: 01/23/18 Time of Evaluation: 11:08 - Subjective Subjective: C/O SEVERE LOW BACK PAIN Objective - Vital Signs/Intake and Output Vital Signs (last 24 hours): Temp Pulse Resp BP Pulse Ox 97.9 F 69 20 129/80 98 01/23/18 09:51 01/23/18 09:51 01/23/18 09:51 01/23/18 09:51 01/23/18 09:51 - Medications Medications: Current Medications Acetylcysteine (Acetylcysteine 20%) 2 ml INH RBID [facility] Last Admin: 01/23/18 07:04 Dose: 2 ml Albuterol/Ipratropium (Duoneb 3 Mg/0.5 Mg (3 Ml) Ud) 3 ml IH RQ4 [facility] Last Admin: 01/23/18 07:04 Dose: 3 ml Alprazolam (Xanax) 0.5 mg PO BID PRN PRN Reason: Anxiety Last Admin: 01/22/18 21:45 Dose: 0.5 mg Amlodipine Besylate (Norvasc) 5 mg PO DAILY [facility] Last Admin: 01/23/18 09:16 Dose: 5 mg Amoxicillin/Clavulanate Potassium (Augmentin 875 Mg-125 Mg Tab) 1 tab PO Q12 [facility]; Protocol Last Admin: 01/23/18 09:15 Dose: 1 tab Apixaban (Eliquis) 2.5 mg PO BID [facility]; Protocol Last Admin: 01/23/18 09:15 Dose: 2.5 mg Artificial Tears (Artificial Tears) 2 drop OU Q6 PRN PRN Reason: Dry eyes Last Admin: 01/18/18 17:16 Dose: 2 drop Atorvastatin Calcium (Lipitor) 10 mg PO DAILY [facility] Last Admin: 01/23/18 09:16 Dose: 10 mg Benzocaine/Menthol (Cepacol Sore Throat) 1 cordell MM Q3 PRN PRN Reason: Sore Throat Last Admin: 01/20/18 21:29 Dose: 1 cordell Benzonatate (Tessalon Perles) 200 mg PO Q8 PRN PRN Reason: Cough Last Admin: 01/23/18 09:17 Dose: 200 mg Calcium Acetate (Phoslo) 667 mg PO TID [facility] Last Admin: 01/23/18 09:14 Dose: 667 mg Carvedilol (Coreg) 25 mg PO Q12 [facility] Last Admin: 01/23/18 09:15 Dose: 25 mg Famotidine (Pepcid) 20 mg PO DAILY [facility] Last Admin: 01/23/18 09:15 Dose: 20 mg Home Med (Entecavir [Baraclude]) 0.5 mg PO Q48H [facility] Last Admin: 01/22/18 09:32 Dose: 0.5 mg Oxycodone/Acetaminophen (Percocet 5/325 Mg Tab) 1 tab PO Q4 PRN PRN Reason: Pain, moderate (4-7) Stop: 01/26/18 11:05 Promethazine HCl (Phenergan Syrup) 12.5 mg PO Q6 PRN PRN Reason: Cough Tacrolimus (Prograf Cap) 0.5 mg PO HS [facility] Last Admin: 01/22/18 21:45 Dose: 0.5 mg Tacrolimus (Prograf Cap) 1 mg PO HS [facility] Last Admin: 01/22/18 21:46 Dose: 1 mg Zolpidem Tartrate (Ambien) 5 mg PO HS PRN PRN Reason: insomnia Last Admin: 01/22/18 22:54 Dose: 5 mg - Labs Labs: 01/21/18 14:52 01/21/18 14:52 - Constitutional Appears: In Acute Distress - Head Exam Head Exam: ATRAUMATIC, NORMAL INSPECTION, NORMOCEPHALIC - Eye Exam Eye Exam: EOMI, Normal appearance, PERRL Pupil Exam: NORMAL ACCOMODATION, PERRL - ENT Exam ENT Exam: Mucous Membranes Moist, Normal Exam - Neck Exam Neck Exam: Full ROM, Normal Inspection. absent: Lymphadenopathy - Respiratory Exam Respiratory Exam: Prolonged Expiratory Phase, Rales, NORMAL BREATHING PATTERN - Cardiovascular Exam Cardiovascular Exam: REGULAR RHYTHM, +S1, +S2. absent: Murmur - GI/Abdominal Exam GI & Abdominal Exam: Soft, Normal Bowel Sounds. absent: Tenderness - Rectal Exam Rectal Exam: NORMAL INSPECTION - Extremities Exam Extremities Exam: Full ROM, Normal Capillary Refill, Normal Inspection. absent: Joint Swelling, Pedal Edema - Back Exam Back Exam: NORMAL INSPECTION, paraspinal tenderness - Neurological Exam Neurological Exam: Alert, Awake, CN II-XII Intact, Normal Gait, Oriented x3 - Psychiatric Exam Psychiatric exam: Normal Affect, Normal Mood - Skin Skin Exam: Dry, Intact, Normal Color, Warm Assessment and Plan - Assessment and Plan (Free Text) Assessment: BACK PAIN--MUSCULAR? CHF/PNEUMONIA-IMPROVED Plan: PERCOCET FOR PAIN CONTINUE CURRENT RX PT REFUSES SUBACUTE CARE AND WANTS TO GO HOME
[2018-01-23] MEDS: Oxycodone/Acetaminophen 5/325 mg Tab PO PRN ×2 (11:22→16:18)
[2018-01-24] MEDS: Albuterol-Ipratrop 3 mg / 0.5 (3 ml) UD IH SCH ×5 (04:13→19:10)
[2018-01-24] MEDS: Acetylcysteine 20% Inhal Soln (4ml) INH SCH ×2 (07:33→19:10)
[2018-01-24] MEDS: Amoxicillin-Clav 875-125 mg Tab PO SCH ×2 (08:52→22:12)
[2018-01-24] MEDS: ENTECAVIR 0.5 MG PO SCH (08:53)
[2018-01-24] MEDS: Oxycodone/Acetaminophen 5/325 mg Tab PO PRN ×3 (08:54→22:11)
--- NOTE | 2018-01-24 09:47 | CP.PCM.PN ---
Subjective - Date & Time of Evaluation Date of Evaluation: 01/24/18 Time of Evaluation: 09:47 - Subjective Subjective: BACK PAIN IMPROVED INSISTS ON GOING HOME INSTEAD OF SUBACUTE CARE Objective - Vital Signs/Intake and Output Vital Signs (last 24 hours): Temp Pulse Resp BP Pulse Ox 97.8 F 76 18 130/81 97 01/24/18 08:46 01/24/18 08:54 01/24/18 08:46 01/24/18 08:54 01/24/18 08:46 - Medications Medications: Current Medications Acetylcysteine (Acetylcysteine 20%) 2 ml INH RBID [facility] Last Admin: 01/24/18 07:33 Dose: 2 ml Albuterol/Ipratropium (Duoneb 3 Mg/0.5 Mg (3 Ml) Ud) 3 ml IH RQ4 [facility] Last Admin: 01/24/18 07:33 Dose: 3 ml Alprazolam (Xanax) 0.5 mg PO BID PRN PRN Reason: Anxiety Last Admin: 01/22/18 21:45 Dose: 0.5 mg Amlodipine Besylate (Norvasc) 5 mg PO DAILY [facility] Last Admin: 01/24/18 08:54 Dose: 5 mg Amoxicillin/Clavulanate Potassium (Augmentin 875 Mg-125 Mg Tab) 1 tab PO Q12 [facility]; Protocol Last Admin: 01/24/18 08:52 Dose: 1 tab Apixaban (Eliquis) 2.5 mg PO BID [facility]; Protocol Last Admin: 01/24/18 08:53 Dose: 2.5 mg Artificial Tears (Artificial Tears) 2 drop OU Q6 PRN PRN Reason: Dry eyes Last Admin: 01/18/18 17:16 Dose: 2 drop Atorvastatin Calcium (Lipitor) 10 mg PO DAILY [facility] Last Admin: 01/24/18 08:53 Dose: 10 mg Benzocaine/Menthol (Cepacol Sore Throat) 1 cordell MM Q3 PRN PRN Reason: Sore Throat Last Admin: 01/20/18 21:29 Dose: 1 cordell Benzonatate (Tessalon Perles) 200 mg PO Q8 PRN PRN Reason: Cough Last Admin: 01/24/18 08:55 Dose: 200 mg Calcium Acetate (Phoslo) 667 mg PO TID [facility] Last Admin: 12/06/18 08:54 Dose: 667 mg Carvedilol (Coreg) 25 mg PO Q12 [facility] Last Admin: 01/24/18 08:53 Dose: 25 mg Famotidine (Pepcid) 20 mg PO DAILY [facility] Last Admin: 01/24/18 08:54 Dose: 20 mg Home Med (Entecavir [Baraclude]) 0.5 mg PO Q48H [facility] Last Admin: 01/24/18 08:53 Dose: 0.5 mg Oxycodone/Acetaminophen (Percocet 5/325 Mg Tab) 1 tab PO Q4 PRN PRN Reason: Pain, moderate (4-7) Stop: 01/26/18 11:05 Last Admin: 01/24/18 08:54 Dose: 1 tab Promethazine HCl (Phenergan Syrup) 12.5 mg PO Q6 PRN PRN Reason: Cough Tacrolimus (Prograf Cap) 0.5 mg PO HS [facility] Last Admin: 01/23/18 21:57 Dose: 0.5 mg Tacrolimus (Prograf Cap) 1 mg PO HS [facility] Last Admin: 01/23/18 21:57 Dose: 1 mg Zolpidem Tartrate (Ambien) 5 mg PO HS PRN PRN Reason: insomnia Last Admin: 01/23/18 21:58 Dose: 5 mg - Labs Labs: 01/21/18 14:52 01/21/18 14:52 - Constitutional Appears: No Acute Distress - Head Exam Head Exam: ATRAUMATIC, NORMAL INSPECTION, NORMOCEPHALIC - Eye Exam Eye Exam: EOMI, Normal appearance, PERRL Pupil Exam: NORMAL ACCOMODATION, PERRL - ENT Exam ENT Exam: Mucous Membranes Moist, Normal Exam - Neck Exam Neck Exam: Full ROM, Normal Inspection. absent: Lymphadenopathy - Respiratory Exam Respiratory Exam: Prolonged Expiratory Phase, Rales, NORMAL BREATHING PATTERN - Cardiovascular Exam Cardiovascular Exam: REGULAR RHYTHM, +S1, +S2. absent: Murmur - GI/Abdominal Exam GI & Abdominal Exam: Soft, Normal Bowel Sounds. absent: Tenderness - Rectal Exam Rectal Exam: NORMAL INSPECTION - Extremities Exam Extremities Exam: Full ROM, Normal Capillary Refill, Normal Inspection. absent: Joint Swelling, Pedal Edema - Back Exam Back Exam: NORMAL INSPECTION - Neurological Exam Neurological Exam: Alert, Awake, CN II-XII Intact, Normal Gait, Oriented x3 - Psychiatric Exam Psychiatric exam: Normal Affect, Normal Mood - Skin Skin Exam: Dry, Intact, Normal Color, Warm Assessment and Plan - Assessment and Plan (Free Text) Assessment: PNEUMONIA-RESOLVED S/P LIVER TRANSPLANT CHRONIC KIDNEY DZ Plan: DISCHARGE IN AM
[2018-01-24 16:33] VITALS: RESP 20
[2018-01-25] MEDS: Albuterol-Ipratrop 3 mg / 0.5 (3 ml) UD IH SCH ×3 (00:59→12:27)
[2018-01-25 06:56] LABS: CALCIUM 8.8 mg/dL (8.4-10.2)
[2018-01-25] MEDS: Acetylcysteine 20% Inhal Soln (4ml) INH SCH (08:33)
[2018-01-25] MEDS: Amoxicillin-Clav 875-125 mg Tab PO SCH (08:56)
[2018-01-25 08:58] VITALS: BP 129/78; PULSE 70
[2018-01-25 09:03] VITALS: TEMP 97.8; O2SAT 93
--- NOTE | 2018-01-25 12:06 | CP.PCM.DIS ---
Provider - Provider Date of Admission: 01/14/18 18:13 Attending physician: Grey Richardson MD Consults: 01/14/18 18:13 Case Management Referral Routine Comment: Physician Instructions: Reason For Exam: Reason for Referral: Discharge Planning 01/14/18 18:16 Infectious Disease Consult Routine Comment: Consulting Provider: Santosh Riley Consulting Physician: Santosh Riley Reason for Consult: follow up 01/14/18 18:17 Cardiology Consult Routine Comment: Consulting Provider: Raimundo Tovar Consulting Physician: Raimundo Tovar Reason for Consult: follow on tcu 01/14/18 18:36 Pastoral Care Referral Routine Comment: Physician Instructions: Reason For Exam: advance direcitve Time Spent in preparation of Discharge (in minutes): 30 Diagnosis - Discharge Diagnosis (1) ASHD (arteriosclerotic heart disease) Status: Acute (2) Acute on chronic systolic (congestive) heart failure Status: Acute (3) Chronic kidney disease, stage IV (severe) Status: Acute (4) Liver transplant disorder Status: Acute (5) Medical non-compliance Status: Acute (6) Acute on chronic combined systolic and diastolic congestive heart failure Status: Chronic (7) Generalized muscle weakness Status: Chronic (8) S/P placement of cardiac pacemaker Status: Chronic Hospital Course - Lab Results Lab Results: Most Recent Lab Values WBC 5.1 K/uL (4.8-10.8) 01/21/18 14:52 RBC 4.50 Mil/uL (4.40-5.90) 01/21/18 14:52 Hgb 12.7 g/dL (12.0-18.0) 01/21/18 14:52 Hct 39.8 % (35.0-51.0) 01/21/18 14:52 MCV 88.4 fl (80.0-94.0) 01/21/18 14:52 MCH 28.2 pg (27.0-31.0) 01/21/18 14:52 MCHC 31.9 g/dL (33.0-37.0) L 01/21/18 14:52 RDW 14.7 % (11.5-14.5) H 01/21/18 14:52 Plt Count 148 K/uL (130-400) 01/21/18 14:52 Sodium 140 mmol/l (132-148) 01/25/18 05:45 Potassium 4.8 MMOL/L (3.6-5.0) 01/25/18 05:45 Chloride 104 mmol/L (98-107) 01/25/18 05:45 Carbon Dioxide 25 mmol/L (22-30) 01/25/18 05:45 Anion Gap 16 (10-20) 01/25/18 05:45 BUN 61 mg/dl (9-20) H 01/25/18 05:45 Creatinine 3.4 mg/dl (0.8-1.5) H 01/25/18 05:45 Est GFR ( Amer) 22 01/25/18 05:45 Est GFR (Non-Af Amer) 18 01/25/18 05:45 Random Glucose 82 mg/dL (75-110) 01/25/18 05:45 Calcium 8.8 mg/dL (8.4-10.2) 01/25/18 05:45 Magnesium 1.8 MG/DL (1.6-2.3) 01/25/18 05:45 - Hospital Course Hospital Course: CLINICALLY IMPROVED WITH THERAPY SUBACUTE CARE SUGGESTED BUT DECLINED BY PATIENT Discharge Exam - Head Exam Head Exam: ATRAUMATIC, NORMAL INSPECTION, NORMOCEPHALIC - Eye Exam Eye Exam: EOMI, Normal appearance, PERRL Pupil Exam: NORMAL ACCOMODATION, PERRL - Respiratory Exam Respiratory Exam: Prolonged Expiratory Phase - Cardiovascular Exam Additional comments: PACEMAKER IN PLACE - GI/Abdominal Exam GI & Abdominal Exam: Normal Bowel Sounds - Rectal Exam Rectal Exam: NORMAL INSPECTION - Neurological Exam Neurological exam: Alert, CN II-XII Intact, Normal Gait, Oriented x3, Reflexes Normal - Psychiatric Exam Psychiatric exam: Normal Affect, Normal Mood - Skin Skin Exam: Dry, Intact, Normal Color, Warm Discharge Plan - Follow Up Plan Condition: GOOD Disposition: HOME/ ROUTINE Additional Instructions: DISCHARGE TODAY FOLLOW UP WITH DR RICHARDSON
[2018-01-25] MEDS ORDERED: Influenza Vaccine 60 mcg/0.5 mL SYR (4YR UP) IM ONE (12:53)
== END 2018-01-25 14:21 | disposition home or self-care (01) | DRG 291 ==
LOC: H.TCU 18:13
PROVIDERS: ADMIT Internal Medicine Pulmonary Disease; ATTEND Internal Medicine Pulmonary Disease
PROC: 3E03329 Introduction of Other Anti-infective into Peripheral Vein, Percutaneous Approach (ICD-10-PCS; principal; 2018-01-14)
PROC: F08Z4FZ Home Management Treatment using Assistive, Adaptive, Supportive or Protective Equipment (ICD-10-PCS; 2018-01-14)
PROC: F07M6FZ Therapeutic Exercise Treatment of Musculoskeletal System - Whole Body using Assistive, Adaptive, Supportive or Protective Equipment (ICD-10-PCS; 2018-01-14)
PROC: 3E0F7GC Introduction of Other Therapeutic Substance into Respiratory Tract, Via Natural or Artificial Opening (ICD-10-PCS; 2018-01-14)
DX: I13.2 Hypertensive heart and chronic kidney disease with heart failure and with stage 5 chronic kidney disease, or end stage renal disease (principal); I50.43 Acute on chronic combined systolic (congestive) and diastolic (congestive) heart failure; J18.9 Pneumonia, unspecified organism; J44.0 Chronic obstructive pulmonary disease with (acute) lower respiratory infection; N17.9 Acute kidney failure, unspecified; Z94.4 Liver transplant status; B19.10 Unspecified viral hepatitis B without hepatic coma; N18.4 Chronic kidney disease, stage 4 (severe); I25.10 Atherosclerotic heart disease of native coronary artery without angina pectoris; I42.9 Cardiomyopathy, unspecified; I48.2 Chronic atrial fibrillation; Z74.01 Bed confinement status; Z87.891 Personal history of nicotine dependence; Z91.19 Patient's noncompliance with other medical treatment and regimen; Z95.0 Presence of cardiac pacemaker; G93.9 Disorder of brain, unspecified; M54.5 Low back pain; M62.81 Muscle weakness (generalized); E78.00 Pure hypercholesterolemia, unspecified; H91.92 Unspecified hearing loss, left ear

== ENCOUNTER 2018-06-12 15:14 | Inpatient (IN) | payer MEDICARE ==
[2018-06-12 15:14] VITALS: BMI 27.8
--- NOTE | 2018-06-12 16:24 | ED PDOC ---
HPI: General Adult Time Seen by Provider: 06/12/18 15:30 Chief Complaint (Nursing): Shortness Of Breath Chief Complaint (Provider): Mucus, Difficulty Swallowing, Weakness History Per: Patient, Family History/Exam Limitations: no limitations Onset/Duration Of Symptoms: Days (several months), Worse Since (past couple weeks) Current Symptoms Are (Timing): Still Present Additional Complaint(s): 62 year old male presents to the ED for evaluation of increased thick, sometimes bloody, mucus in his throat / chest that makes it difficult to swallow and he cannot cough up, worsening weakness, and rapid weight loss. Patient states that he has only been able to tolerate fluids and his medications, and has not had solid food in weeks. As per shirt sorter at bedside, patient has had episodes of being unable to stand after sitting, and has lost over one hundred pounds in just a couple of months. Of note, he has a history of heart problems chf, liver transplant, and a brain tumor. Otherwise, denies fever and leg swelling. PMD: Dr. Arriaga Past Medical History Reviewed: Historical Data, Nursing Documentation, Vital Signs Vital Signs: Last Vital Signs Temp 98.0 F 06/12/18 15:15 Pulse 70 06/12/18 15:15 Resp 17 06/12/18 16:00 BP 122/84 06/12/18 15:15 Pulse Ox 100 06/12/18 16:00 - Medical History PMH: Cardia Arrhythmia, CHF, Deep Vein Thrombosis, HTN, Hypercholesterolemia, Malignancy (brain tumor), Pulmonary Embolism, Chronic Kidney Disease - Surgical History Surgical History: Pacemaker Other surgeries: liver transplant - Family History Family History: States: Unknown Family Hx - Living Arrangements Living Arrangements: With Family - Social History Current smoker - smoking cessation education provided: No Ex-Smoker (has not smoked in the last 12 months): Yes Alcohol: None Drugs: Denies - Immunization History Hx Tetanus Toxoid Vaccination: No Hx Influenza Vaccination: Yes Hx Pneumococcal Vaccination: No - Home Medications Home Medications: Ambulatory Orders Medication Instructions Recorded Alprazolam [Xanax] 0.5 mg PO BID PRN 09/12/17 Atorvastatin [Lipitor] 10 mg PO DAILY 09/12/17 Tacrolimus [Prograf] 0.5 mg PO HS 09/12/17 Zolpidem [Ambien] 5 mg PO HS PRN 09/12/17 Calcium Acetate [Phoslo] 667 mg PO TID #90 tab 10/05/17 Famotidine [Pepcid] 20 mg PO DAILY #60 tab 10/05/17 Furosemide [Lasix] 40 mg PO DAILY #30 tab 10/05/17 oxyCODONE/Acetaminophen [Percocet 1 tab PO Q4 PRN #30 tab 10/05/17 5/325 mg Tab] Rivaroxaban [Xarelto] 10 mg PO DAILY 01/07/18 Tacrolimus [Prograf Cap] 1 mg PO HS 01/07/18 Entecavir [Baraclude] 0.5 mg PO Q48H #14 01/08/18 Bumetanide [Bumex] 2 mg IVP Q12 01/14/18 Carvedilol [Coreg] 25 mg PO Q12 #60 tab 01/14/18 Promethazine HCl 10 ml PO Q6 PRN 01/14/18 Bumetanide [Bumex] 1 mg PO Q12 #60 tab 01/25/18 Zolpidem [Ambien] 5 mg PO HS PRN #30 tab 01/25/18 amLODIPine [Norvasc] 5 mg PO Q12 #60 tab 01/25/18 oxyCODONE/Acetaminophen [Percocet 1 ea PO Q6 #20 tab 01/25/18 5/325 mg Tab] oxyCODONE/Acetaminophen [Percocet 1 tab PO Q6 #30 tab 01/25/18 5/325 mg Tab] - Allergies Allergies/Adverse Reactions: Allergies Allergy/AdvReac Type Severity Reaction Status Date / Time No Known Allergies Allergy Verified 06/12/18 15:15 Review of Systems ROS Statement: Except As Marked, All Systems Reviewed And Found Negative Constitutional: Positive for: Weakness, Weight loss. Negative for: Fever ENT: Positive for: Other (mucus in throat and chest; difficulty swallowing) Musculoskeletal: Negative for: Other (leg swelling) Physical Exam - Reviewed Nursing Documentation Reviewed: Yes Vital Signs Reviewed: Yes - Physical Exam Appears: Positive for: No Acute Distress (but appears cachetic and very thin) Head Exam: Positive for: ATRAUMATIC, NORMOCEPHALIC Skin: Positive for: Normal Color, Warm Eye Exam: Positive for: Normal appearance ENT: Positive for: Normal ENT Inspection Neck: Positive for: Normal, Painless ROM, Supple Cardiovascular/Chest: Positive for: Regular Rate, Rhythm Respiratory: Positive for: Decreased Breath Sounds, Rhonchi (diffuse mild ). Negative for: Respiratory Distress Gastrointestinal/Abdominal: Positive for: Normal Exam, Soft. Negative for: Tenderness Back: Positive for: Normal Inspection Extremity: Negative for: Pedal Edema, Calf Tenderness, Swelling (to legs) Neurological/Psych: Positive for: Awake, Alert, Oriented (x3) - Laboratory Results Result Diagrams: 06/12/18 17:35 06/12/18 17:36 - ECG ECG: Positive for: Interpreted By Me, Viewed By Me ECG Rhythm: Positive for: Venticular Paced (70bpm) O2 Sat by Pulse Oximetry: 100 (NC) Pulse Ox Interpretation: Normal - Critical Care Total Time (In Min): 30 Medical Decision Making Medical Decision Making: Time: 1623 Initial Impression: general weakness r/o malignancy , infection Initial Plan: --EKG --CMP --CBC with differential --Urine culture --Urinalysis --Reevaluate 2024 Labs reviewed - patient is in renal failure. Discussed results with patient. Additional orders in light of lab results: --Dextrose 50ml IVP --HumuLIN R 6 units SC --Sodium bicarbonate 50ml IVP --KayeXALATE 30gm PO --CT Chest without contrast 2209 CT FINDINGS: LUNGS: The lungs are clear. No pulmonary mass. PLEURAL SPACES: No evidence of pneumothorax. No pleural effusion. Pleural thickening/fibrotic scarring is seen in the posterior mid-lower right lung. HEART/VASCULAR: Mild cardiomegaly. No pericardial effusion. A dual lead left transvenous pacemaker device is present. Atherosclerotic vascular plaquing is noted in the LAD and left circumflex coronary arteries. LYMPH NODES: There is identified a solitary enlarged right middle mediastinal lymph node blank uring 1.1 cm in transverse axis. Several additional non-enlarged middle mediastinal lymph nodes are present. BONES: No focal osseous abnormality or acute fracture. UPPER ABDOMEN: The upper abdomen demonstrates splenomegaly. The spleen measured 16.0 x 5.7 cm in longitudinal and transverse dimensions respectively. Incidental note is made of a 2.5 cm cyst in the anterior upper left hepatic lobe. IMPRESSION: 1. Pleural thickening/scarring seen in the posterior mid-lower right thorax. 2. Mild cardiomegaly. 3. A dual lead left transvenous pacemaker device is present. 4. A solitary enlarged right middle mediastinal lymph node is noted. Additional non-enlarged mediastinal lymph nodes are seen. 5. Splenomegaly. 2214 Discussed findings with patient and answered all questions. Spoke with Dr. Arriaga who states Dr. Barraza renal should be contacted as he saw the patient last. [facility] accepted patient for admission. 2229 pt noted to have acute renal failure. chronically CR is elevated at around 3-4 but today is up to 6. also BUN elevated 122, never been this high. also pro bnp elevated. pt with history of chf and has ppm in place Spoke with Dr. Barraza who is agreeable to see patient as consult. he wants iv fluids at 75 cchr overnight. pt made aware, questions answered. pt given kayexelate, insulin to decrease the potassium. also ordere villafana to rule out urinary obstruction. pt given gentle hydration for dehydration. pt with decrease po intake. -- Scribe Attestation: Documented by Kylah Baumann, acting as a scribe for Yari Huddleston MD. Provider Scribe Attestation: All medical record entries made by the Scribe were at my direction and personally dictated by me. I have reviewed the chart and agree that the record accurately reflects my personal performance of the history, physical exam, medical decision making, and the department course for this patient. I have also personally directed, reviewed, and agree with the discharge instructions and disposition. Disposition - Clinical Impression Clinical Impression: Acute on chronic systolic (congestive) heart failure, Acute on chronic combined systolic and diastolic congestive heart failure, Generalized muscle weakness - Patient ED Disposition Is Patient to be Admitted: Yes Counseled Patient/Family Regarding: Studies Performed, Diagnosis - Disposition Disposition Time: 22:15 Condition: STABLE
[2018-06-12] MEDS ORDERED: Sodium Chloride 0.9% 1,000 ML IV STA (16:47)
[2018-06-12 17:41] LABS: BASO # 0.1 K/uL (0.0-0.2); BASO % 0.6 % (0.0-2.0); EOS # 0.1 K/uL (0.0-0.7); EOS % 0.9 % (0.0-4.0); LYMPH # 0.9 K/uL (1.0-4.3); LYMPH % 10.4 % (20.0-40.0); MEAN CELL VOLUME 88.8 fl (80.0-94.0); MEAN CORPUSCULAR HEMOGLOBIN 29.9 pg (27.0-31.0); MEAN CORPUSCULAR HGB CONC 33.7 g/dL (33.0-37.0); MONO # 0.5 K/uL (0.0-0.8); MONO % 5.9 % (0.0-10.0); NEUT # 7.5 K/uL (1.8-7.0); NEUT % 82.2 % (50.0-75.0); NRBC % 0.1 % (0.0-0.0); RBC 4.68 Mil/uL (4.40-5.90); RED CELL DISTRIBUTION WIDTH 13.7 % (11.5-14.5); WHITE BLOOD COUNT 9.1 K/uL (4.8-10.8)
[2018-06-12 18:01] LABS: B-TYPE NATRIURETIC PEPTIDE 12700 pg/ml (0-900)
[2018-06-12 18:12] LABS: ALB/GLOB RATIO 0.9 (1.0-2.1); ALBUMIN 4.1 g/dL (3.5-5.0); ALT/SGPT < 6 U/L (21-72); AST/SGOT 23 U/L (17-59); BLOOD UREA NITROGEN 122 mg/dl (9-20); CALCIUM 9.1 mg/dL (8.4-10.2); GFR NON-AFRICAN AMERICAN 9
[2018-06-12] MEDS ORDERED: Sodium Bicarbonate 4.2% Inj (Infant) IVP ONE (20:24)
[2018-06-12] MEDS ORDERED: Insulin Regular 100 units/ml SC STA (20:24)
[2018-06-12] MEDS ORDERED: Dextrose 50% SYRINGE Inj (50 ml) IVP ONE (20:24)
[2018-06-12 23:00] LABS: ALB/GLOB RATIO 0.8 (1.0-2.1); ALBUMIN 3.6 g/dL (3.5-5.0); CALCIUM 8.8 mg/dL (8.4-10.2)
[2018-06-13] MEDS ORDERED: Insulin Regular 100 units/ml ONE (00:04)
[2018-06-13] MEDS ORDERED: Sodium Bicarbonate 4.2% Inj (Infant) ONE ×2 (00:05→00:38)
[2018-06-13] MEDS ORDERED: Dextrose 50% SYRINGE Inj (50 ml) ONE (00:19)
[2018-06-13 03:27] LABS: URINE BILIRUBIN NEGATIVE (NEGATIVE); URINE BLOOD NEGATIVE (NEGATIVE); URINE CLARITY CLEAR (Clear); URINE COLOR YELLOW (YELLOW); URINE GLUCOSE (UA) NEG (NEGATIVE); URINE LEUKOCYTE ESTERASE NEG Leu/uL (Negative); URINE PROTEIN 30 mg/dL (NEGATIVE); URINE UROBILINOGEN 0.2-1.0 mg/dL (0.2-1.0)
[2018-06-13] MEDS ORDERED: Promethazine 12.5 mg/10 ml Syrup PO PRN (05:09)
[2018-06-13 05:48] LABS: HEMOGLOBIN 12.7 g/dL (12.0-18.0); MEAN CELL VOLUME 88.4 fl (80.0-94.0); MEAN CORPUSCULAR HEMOGLOBIN 29.6 pg (27.0-31.0); MEAN CORPUSCULAR HGB CONC 33.4 g/dL (33.0-37.0); RBC 4.3 Mil/uL (4.40-5.90); RED CELL DISTRIBUTION WIDTH 13.6 % (11.5-14.5); WHITE BLOOD COUNT 7.2 K/uL (4.8-10.8)
[2018-06-13 05:58] LABS: CALCIUM 8.8 mg/dL (8.4-10.2)
--- NOTE | 2018-06-13 08:21 | CARD ---
APPROVED REPORT Date of service: 06/12/2018 EKG Measurement Heart [id number] <Conclusion> Ventricular-paced rhythm Abnormal ECG
[2018-06-13] MEDS ORDERED: Sodium Chloride 3% for Inhalation 4 ML VIAL.NEB IH PRN (08:26)
--- NOTE | 2018-06-13 08:33 | CP.PCM.PN ---
Subjective - Date & Time of Evaluation Date of Evaluation: 06/13/18 Time of Evaluation: 08:34 - Subjective Subjective: weak and coughing Objective - Vital Signs/Intake and Output Vital Signs (last 24 hours): Temp Pulse Resp BP Pulse Ox 98.1 F 70 18 136/92 H 97 06/13/18 04:30 06/13/18 04:34 06/13/18 04:34 06/13/18 04:30 06/13/18 04:34 - Medications Medications: Current Medications Alprazolam (Xanax) 0.5 mg PO BID PRN PRN Reason: Anxiety Calcium Acetate (Phoslo) 667 mg PO TID [facility] Carvedilol (Coreg) 25 mg PO Q12 [facility] Famotidine (Pepcid) 20 mg PO DAILY [facility] Furosemide (Lasix) 20 mg IVP ONCE ONE Stop: 06/13/18 08:22 Heparin Sodium (Porcine) (Heparin) 5,000 units SC Q12 [facility]; Protocol Home Med (Entecavir [Baraclude]) 0.5 mg PO Q48H [facility] Ceftriaxone Sodium 1 gm/ (Sodium Chloride) 100 mls @ 100 mls/hr IVPB DAILY [facility]; Protocol Levalbuterol HCl (Xopenex) 1.25 mg INH RQ8 [facility] Oxycodone/Acetaminophen (Percocet 5/325 Mg Tab) 1 tab PO Q4 PRN PRN Reason: Pain, moderate (4-7) Stop: 06/16/18 05:10 Promethazine HCl (Phenergan Syrup) 12.5 mg PO Q6 PRN PRN Reason: Cough Tacrolimus (Prograf Cap) 2 mg PO HS [facility] Zolpidem Tartrate (Ambien) 5 mg PO HS PRN PRN Reason: insomnia - Labs Labs: 06/13/18 05:41 06/13/18 05:41 - Constitutional Appears: Chronically Ill - Head Exam Head Exam: ATRAUMATIC, NORMAL INSPECTION, NORMOCEPHALIC - Eye Exam Eye Exam: EOMI, Normal appearance, PERRL Pupil Exam: NORMAL ACCOMODATION, PERRL - ENT Exam ENT Exam: Mucous Membranes Moist, Normal Exam - Neck Exam Neck Exam: Full ROM, Normal Inspection. absent: Lymphadenopathy - Respiratory Exam Respiratory Exam: Decreased Breath Sounds, Prolonged Expiratory Phase, Rales, NORMAL BREATHING PATTERN - Cardiovascular Exam Cardiovascular Exam: REGULAR RHYTHM, +S1, +S2. absent: Murmur Additional comments: pacemaker in place - GI/Abdominal Exam GI & Abdominal Exam: Soft, Normal Bowel Sounds. absent: Tenderness - Rectal Exam Rectal Exam: NORMAL INSPECTION - Extremities Exam Extremities Exam: Full ROM, Normal Capillary Refill, Pedal Edema. absent: Joint Swelling - Back Exam Back Exam: NORMAL INSPECTION - Neurological Exam Neurological Exam: Abnormal Gait, Alert, Awake, CN II-XII Intact, Oriented x3 - Psychiatric Exam Psychiatric exam: Flat Affect - Skin Skin Exam: Dry, Intact, Normal Color, Warm Assessment and Plan - Assessment and Plan (Free Text) Assessment: acute on chronic renal failure chf--systolic and diastol;ic dysfunction arrythmias failure to thrive hx of liver transplant hx of brain tumor in the past upper respiratory infection--r/o pneumonia hyperkalemia due to end stage kidney dz poor compliance to rx Plan: see orders he may need dialysis code status addressed --pt undecided prognosis is extremely guarded
--- NOTE | 2018-06-13 09:59 | CP.PCM.CON ---
History of Present Illness - History of Present Illness History of Present Illness: This patient is 62 years of age male presented with generalized weakness and sore throat and inability to swallow hoarseness of his voice and noted worsening of his kidney function in the emergency room for which I was called to see this patient for further evaluation. Patient known to have a chronic kidney disease stage IV from previous admission and with history of liver transplant patient developed acute kidney injury back in December and serum creatinine has gone up then improved to baseline about 3.5 or so approximately. She has stated that he has not been eating or unable to drink fluids because of this difficulty swall owing Past medical history chronic kidney disease stage IV Liver transplant many years ago Medication noted Social history not contributory as noted in the medical record Review of Systems - Constitutional Constitutional: Anorexia. absent: Chills - EENT Eyes: absent: Exophthalmos Nose/Mouth/Throat: absent: Epistaxis, Post Nasal Drip, Tongue Swelling, Neck Pain - Cardiovascular Cardiovascular: Dyspnea. absent: Acrocyanosis, Edema - Respiratory Respiratory: Cough, Dyspnea on Exertion. absent: Hemoptysis - Gastrointestinal Gastrointestinal: absent: Abdominal Pain, Nausea - Musculoskeletal Musculoskeletal: absent: Back Pain - Integumentary Integumentary: absent: Acne - Neurological Neurological: absent: Abnormal Gait, Confusion, Headaches, Syncope - Psychiatric Psychiatric: As Per HPI. absent: Confusion - Endocrine Endocrine: Fatigue - Hematologic/Lymphatic Hematologic: absent: Easy Bleeding Past Patient History - Past Medical History & Family History Past Medical History?: Yes - Past Social History Smoking Status: Former Smoker - CARDIAC Hx Cardia Arrhythmia: Yes Hx Congestive Heart Failure: Yes Hx Hypercholesterolemia: Yes Hx Hypertension: Yes Hx Pacemaker: Yes - PULMONARY Hx Pulmonary Embolism: Yes - NEUROLOGICAL Hx Neurological Disorder: No - HEENT Hx Deafness: Yes (left ear) - RENAL Hx Chronic Kidney Disease: Yes - ENDOCRINE/METABOLIC Hx Endocrine Disorders: No Hx Adrenal Cancer: No - HEMATOLOGICAL/ONCOLOGICAL Hx Blood Transfusions: Yes Hx Blood Transfusion Reaction: No Hx Hepatitis B: Yes Other/Comment: dvt - INTEGUMENTARY Hx Dermatological Problems: No - MUSCULOSKELETAL/RHEUMATOLOGICAL Hx Falls: No - GASTROINTESTINAL Other/Comment: Hx liver transplant - GENITOURINARY/GYNECOLOGICAL Hx Genitourinary Disorders: No - PSYCHIATRIC Hx Substance Use: No - SURGICAL HISTORY Hx Liver Transplant: Yes (1998) Other/Comment: brain surgery 1984 - ANESTHESIA Hx Anesthesia: Yes Hx Anesthesia Reactions: No Meds Allergies/Adverse Reactions: Allergies Allergy/AdvReac Type Severity Reaction Status Date / Time No Known Allergies Allergy Verified 06/12/18 15:15 - Medications Medications: Current Medications Alprazolam (Xanax) 0.5 mg PO BID PRN PRN Reason: Anxiety Calcium Acetate (Phoslo) 667 mg PO TID [facility] Last Admin: 06/13/18 09:27 Dose: 667 mg Carvedilol (Coreg) 25 mg PO Q12 [facility] Last Admin: 06/13/18 09:27 Dose: 25 mg Famotidine (Pepcid) 20 mg PO DAILY [facility] Last Admin: 06/13/18 09:27 Dose: 20 mg Heparin Sodium (Porcine) (Heparin) 5,000 units SC Q12 [facility]; Protocol Last Admin: 06/13/18 09:26 Dose: 5,000 units Home Med (Entecavir [Baraclude]) 0.5 mg PO Q48H [facility] Ceftriaxone Sodium 1 gm/ (Sodium Chloride) 100 mls @ 100 mls/hr IVPB DAILY [facility]; Protocol Last Admin: 06/13/18 09:30 Dose: 100 mls/hr Levalbuterol HCl (Xopenex) 1.25 mg INH RQ8 [facility] Oxycodone/Acetaminophen (Percocet 5/325 Mg Tab) 1 tab PO Q4 PRN PRN Reason: Pain, moderate (4-7) Stop: 06/16/18 05:10 Promethazine HCl (Phenergan Syrup) 12.5 mg PO Q6 PRN PRN Reason: Cough Tacrolimus (Prograf Cap) 2 mg PO HS [facility] Zolpidem Tartrate (Ambien) 5 mg PO HS PRN PRN Reason: insomnia Physical Exam - Constitutional Appears: No Acute Distress - Eye Exam Eye Exam: Conjunctival injection - ENT Exam ENT Exam: Mucous Membranes Moist - Neck Exam Neck exam: Negative for: Lymphadenopathy - Respiratory Exam Respiratory Exam: Rhonchi, NORMAL BREATHING PATTERN. absent: Chest Wall Tenderness - Cardiovascular Exam Cardiovascular Exam: absent: Gallop, JVD, Rubs - GI/Abdominal Exam GI & Abdominal Exam: absent: Guarding - Extremities Exam Extremities exam: Negative for: calf tenderness - Back Exam Back exam: absent: CVA tenderness (L), CVA tenderness (R) - Neurological Exam Neurological exam: Alert - Psychiatric Exam Psychiatric exam: Normal Affect Results - Vital Signs Recent Vital Signs: Last Vital Signs Temp 97.5 F L 06/13/18 09:00 Pulse 57 L 06/13/18 09:00 Resp 18 06/13/18 09:00 BP 126/74 06/13/18 09:27 Pulse Ox 92 L 06/13/18 09:00 - Labs Result Diagrams: 06/13/18 05:41 06/13/18 05:41 Labs: Laboratory Results - last 24 hr 06/12/18 06/12/18 06/12/18 17:35 17:36 22:30 WBC 9.1 D RBC 4.68 Hgb 14.0 Hct 41.6 MCV 88.8 MCH 29.9 MCHC 33.7 RDW 13.7 Plt Count 130 MPV 10.0 Neut % (Auto) 82.2 H Lymph % (Auto) 10.[address] [place] % (Auto) 5.9 Eos % (Auto) 0.9 Baso % (Auto) 0.6 Neut # (Auto) 7.5 H Lymph # (Auto) 0.[address] [place] # (Auto) 0.5 Eos # (Auto) 0.1 Baso # (Auto) 0.1 Sodium 138 136 Potassium 6.0 H 5.2 H Chloride 101 104 Carbon Dioxide 20 L 15 L Anion Gap 23 H 22 H BUN 122 H* D 118 H* Creatinine 6.4 H 6.2 H Est GFR ( Amer) 11 11 Est GFR (Non-Af Amer) 9 9 Random Glucose 83 76 Calcium 9.1 8.8 Total Bilirubin 1.8 H 1.4 H AST 23 15 L D ALT < 6 L D 11 L D Alkaline Phosphatase 141 H D 133 H NT-Pro-B Natriuret Pep 82254 H Total Protein 8.5 H 7.9 Albumin 4.1 3.6 Globulin 4.5 H 4.3 H Albumin/Globulin Ratio 0.9 L 0.8 L Urine Color Urine Clarity Urine pH Ur Specific [place] Urine Protein Urine Glucose (UA) Urine Ketones Urine Blood Urine Nitrate Urine Bilirubin Urine Urobilinogen Ur Leukocyte Esterase Urine RBC (Auto) Urine Microscopic WBC Hyaline Casts 06/13/18 06/13/18 06/13/18 03:10 05:41 05:41 WBC 7.2 RBC 4.30 L Hgb 12.7 Hct 38.1 MCV 88.4 MCH 29.6 MCHC 33.4 RDW 13.6 Plt Count 127 L MPV Neut % (Auto) Lymph % (Auto) [place] % (Auto) Eos % (Auto) Baso % (Auto) Neut # (Auto) Lymph # (Auto) [place] # (Auto) Eos # (Auto) Baso # (Auto) Sodium 138 Potassium 3.7 Chloride 104 Carbon Dioxide 22 Anion Gap 16 BUN 115 H* Creatinine 6.0 H Est GFR ( Amer) 12 Est GFR (Non-Af Amer) 10 Random Glucose 61 L Calcium 8.8 Total Bilirubin AST ALT Alkaline Phosphatase NT-Pro-B Natriuret Pep 89712 H Total Protein Albumin Globulin Albumin/Globulin Ratio Urine Color Yellow Urine Clarity Clear Urine pH 6.0 Ur Specific [place] 1.015 Urine Protein 30 Urine Glucose (UA) Neg Urine Ketones Trace Urine Blood Negative Urine Nitrate Negative Urine Bilirubin Negative Urine Urobilinogen 0.2-1.0 Ur Leukocyte Esterase Neg Urine RBC (Auto) 3 Urine Microscopic WBC 1 Hyaline Casts 3-5 H Assessment & Plan (1) Chronic kidney disease, stage V Assessment and Plan: Progressive chronic kidney disease that has been worsening from stage IV to stage V Status post liver transplant past History of chronic congestive heart failure Recommendation Call interventional radiologist to insert permacath for dialysis for tomorrow Serum phosphorus and PTH Urinalysis Protein to creatinine ratio Status: Acute (2) Acute on chronic systolic (congestive) heart failure Status: Acute (3) Generalized muscle weakness Status: Chronic (4) ASHD (arteriosclerotic heart disease) Status: Acute
[2018-06-13 11:09] LABS: INR 1.1; PROTHROMBIN TIME 12.4 Seconds (9.8-13.1)
[2018-06-13 11:12] LABS: PARTIAL THROMBOPLASTIN TIME 33.7 Seconds (25.6-37.1)
[2018-06-13] MEDS ORDERED: Lidocaine Hydrochloride 1% 0 ML ONE (14:04)
--- NOTE | 2018-06-13 14:38 | CT ---
Date of service: 06/12/2018 PROCEDURE: CT Chest without contrast HISTORY: chest congestion COMPARISON: None available. TECHNIQUE: Contiguous axial images were obtained through the chest without intravenous contrast enhancement. Sagittal and coronal reconstructions were performed. Radiation dose: Total exam DLP = 448.28 mGy-cm. This CT exam was performed using one or more of the following dose reduction techniques: Automated exposure control, adjustment of the mA and/or kV according to patient size, and/or use of iterative reconstruction technique. FINDINGS: LUNGS: There are a few punctate calcified granulomata are appreciated at the bilateral lower lobes, both parenchymal and subpleural. Fibrotic changes are identified mildly at the right lower lobe as well. No acute infiltrates bilaterally. Central airways reflect partially aerated mucoid material at the distal trachea and otherwise unremarkable. MEDIASTINUM: The thoracic inlet is remarkable for pacemaker leads identified entering into the chest through the left subclavian vein and ultimately terminating at the right heart with generator not captured in the CT although it is seen at the left shoulder region in the supervisor shuttle veneering projection. A small nodule is question at the right thyroid lobe as well. A 4.0 cm ascending thoracic aortic aneurysm is identified terminating at the anterior arch. Mild cardiomegaly is identified. Coronary artery calcifications are identified. The main pulmonary artery measures 3.5 cm which may indicate pulmonary artery hypertension. Clinically correlate further. No definite CHF pattern appreciable grossly. Enlarged precarinal lymph node measures 2.3 x 1.4 cm with a sub carinal lymph node measuring 2.5 x 1.3 cm. Otherwise shotty mediastinal lymph nodes are identified. No aortic atherosclerotic calcification. PLEURA: No pleural fluid. No pneumothorax. Limited pleural plaque is partially calcified affecting right lower lobe. BONES: No fracture. No destructive lesion. UPPER ABDOMEN: 2.3 cm cyst is identified at the anterior liver a junction of medial left and right lobes. OTHER FINDINGS: None. IMPRESSION: 1. Cardiomegaly is identified with 3.5 cm main pulmonary artery suggesting but not definitive for pulmonary artery hypertension. Clinically correlate further. No definite CHF pattern. 2. Limited right lower lobe fibrosis with thickening including partial calcification of right lower lobe pleura. Infrequent scattered calcified granulomata are seen the left greater than right lower lobes. No acute infiltrates bilaterally. 3. Limited mediastinal lymphadenopathy. 4. Incidental splenomegaly to 16.0 cm. Incidental small cyst a junction of medial right and left lobes liver. Preliminary report provided by Serena, 06/12/2018, 10:10 p.m..
[2018-06-13] MEDS: Levalbuterol 1.25 MG/3 ML Inhal Soln UD INH SCH ×2 (15:32→23:51)
--- NOTE | 2018-06-13 19:02 | CP.PCM.CON ---
History of Present Illness - History of Present Illness History of Present Illness: I was asked to see patinet by Dr Arriaga. I am covering for Dr Tovar. Patient see 06/13/181901 Patient is a 62 year old male with HTN, normal LV function in 2018, pulmoanry HTN, s/p biV PPM who presenst with hoarseness and weakness. He has noted difficulty breathing and worsening of his voice. He has dyspnea on exertion. He has previous history of renal insufficiency, but on admission his creatinine is significantly worse. Patient denies chest pain. Review of Systems - Constitutional Constitutional: absent: As Per HPI, Anorexia, Chills, Daytime Sleepiness, E xcessive Sweating, Fatigue, Fever, Frequent Falls, Headache, Increased Appetite, Lethargy, Malaise, Night Sweats, Snoring, Sleep Apnea, Weight Gain, Weight Loss, Weakness, Other - EENT Eyes: absent: As Per HPI, Blind Spots, Blurred Vision, Change in Vision, Dec reased Night Vision, Diplopia, Discharge, Dry Eye, Exophthalmos, Floaters, Irritation, Itchy Eyes, Loss of Peripheral Vision, Pain, Photophobia, Requires Corrective Lenses, Sees Flashes, Spots in Vision, Tunnel Vision, Other Visual Disturbances, Loss of Vision, Other Ears: absent: As Per HPI, Decreased Hearing, Ear Discharge, Ear Pain, Tinnitus, Abnormal Hearing, Disequilibrium, Dizziness, Other Nose/Mouth/Throat: absent: As Per HPI, Epistaxis, Nasal Congestion, Nasal Discharge, Nasal Obstruction, Nasal Trauma, Nose Pain, Post Nasal Drip, Sinus Pain, Sinus Pressure, Bleeding Gums, Change in Voice, Dental Pain, Dry Mouth, Dysphagia, Halitosis, Hoarsness, Lip Swelling, Mouth Lesions, Mouth Pain, Odynophagia, Sore Throat, Throat Swelling, Tongue Swelling, Facial Pain, Neck Pain, Neck Mass, Other - Cardiovascular Cardiovascular: Dyspnea - Respiratory Respiratory: Dyspnea - Gastrointestinal Gastrointestinal: absent: As Per HPI, Abdominal Pain, Belching, Bloating, Change in Bowel Habits, Change in Stool Character, Coffee Ground Emesis, Constipation, Cramping, Diarrhea, Dyspepsia, Dysphagia, Early Satiety, Excessive Flatus, Fecal Incontinence, Heartburn, Hematemesis, Hematochezia, Loose Stools, Melena, Nausea, Odynophagia, Temesmus, Vomiting, Other - Genitourinary Genitourinary: absent: As Per HPI, Change in Urinary Stream, Difficulty Urinating, Dysuria, Flank Pain, Hematuria, Pyuria, Nocturia, Urinary Incontinence, Urinary Frequency, Urinary Hesitance, Urinary Urgency, Voiding Freq/Small Amts, Freq UTI, Hx Renal/Bladder Calculi, Hx /Renal Surgery, Bladder Distension, Other - Musculoskeletal Musculoskeletal: absent: As Per HPI, Abnormal Gait, Arthralgias, Atrophy, Back Pain, Deformity, Joint Swelling, Limited Range of Motion, Loss of Height, Muscle Cramps, Muscle Weakness, Myalgias, Neck Pain, Numbness, Radiating Pain into Limb, Stiffness, Tingling, Other - Integumentary Integumentary: absent: As Per HPI, Acne, Alopecia, Bleeding Lesions, Change in Hair, Change in Nails, Change in Pigmentation, Changing Lesions, Dry Skin, Erythema, Furuncle, Hirsutism, Lesions, New Lesions, Non-Healing Lesions, Photosensitivity, Pruritus, Rash, Skin Pain, Skin Ulcer, Sores, Striae, Swelling, Unusual Bruising, Wounds, Jaundice, Other - Neurological Neurological: absent: As Per HPI, Abnormal Gait, Abnormal Hearing, Abnormal Movements, Abnormal Speech, Behavioral Changes, Burning Sensations, Confusion, Convulsions, Disequilibrium, Dizziness, Numbness, Focal Weakness, Frequent Falls, Headaches, Lack of Coordination, Loss of Vision, Memory Loss, Paresthesias, Radicular Pain, Restless Legs, Sensory Deficit, Syncope, Tingling, Tremor, Vertigo, Weakness, Other Visual Disturbances, Other - Psychiatric Psychiatric: absent: As Per HPI, Abnormal Sleep Pattern, Anhedonia, Anxiety, Auditory Hallucinations, Behavioral Changes, Change in Appetite, Change in Libido, Confusion, Depression, Difficulty Concentrating, Hallucinations, Homicidal Ideation, Hopelessness, Irritability, Memory Loss, Mood Swings, Panic Attacks, Paranoia, Suicidal Ideation, Visual Hallucinations, Tactile Hallucinations, Other - Endocrine Endocrine: absent: As Per HPI, Change in Body Appearance, Change in Libido, Cold Intolorance, Deepening of Voice, Excessive Sweating, Fatigue, Flushing, Heat Intolorance, Increase in Ring/Shoe/Hat Size, Palpitations, Polydipsia, Polyphagia, Polyuria, Other - Hematologic/Lymphatic Hematologic: absent: As Per HPI, Easy Bleeding, Easy Bruising, Lymphadenopathy, Other Past Patient History - Past Medical History & Family History Past Medical History?: Yes - Past Social History Smoking Status: Former Smoker - CARDIAC Hx Cardia Arrhythmia: Yes Hx Congestive Heart Failure: Yes Hx Hypercholesterolemia: Yes Hx Hypertension: Yes Hx Pacemaker: Yes - PULMONARY Hx Pulmonary Embolism: Yes - NEUROLOGICAL Hx Neurological Disorder: No - HEENT Hx Deafness: Yes (left ear) - RENAL Hx Chronic Kidney Disease: Yes - ENDOCRINE/METABOLIC Hx Endocrine Disorders: No Hx Adrenal Cancer: No - HEMATOLOGICAL/ONCOLOGICAL Hx Blood Transfusions: Yes Hx Blood Transfusion Reaction: No Hx Hepatitis B: Yes Other/Comment: dvt - INTEGUMENTARY Hx Dermatological Problems: No - MUSCULOSKELETAL/RHEUMATOLOGICAL Hx Falls: No - GASTROINTESTINAL Other/Comment: Hx liver transplant - GENITOURINARY/GYNECOLOGICAL Hx Genitourinary Disorders: No - PSYCHIATRIC Hx Substance Use: No - SURGICAL HISTORY Hx Liver Transplant: Yes (1998) Other/Comment: brain surgery 1984 - ANESTHESIA Hx Anesthesia: Yes Hx Anesthesia Reactions: No Meds Allergies/Adverse Reactions: Allergies Allergy/AdvReac Type Severity Reaction Status Date / Time No Known Allergies Allergy Verified 06/12/18 15:15 - Medications Medications: Current Medications Alprazolam (Xanax) 0.5 mg PO BID PRN PRN Reason: Anxiety Calcium Acetate (Phoslo) 667 mg PO TID [facility] Last Admin: 06/13/18 16:22 Dose: 667 mg Carvedilol (Coreg) 25 mg PO Q12 [facility] Last Admin: 06/13/18 09:27 Dose: 25 mg Famotidine (Pepcid) 20 mg PO DAILY [facility] Last Admin: 06/13/18 09:27 Dose: 20 mg Heparin Sodium (Porcine) (Heparin) 5,000 units SC Q12 [facility]; Protocol Last Admin: 06/13/18 09:26 Dose: 5,000 units Home Med (Entecavir [Baraclude]) 0.5 mg PO Q48H [facility] Ceftriaxone Sodium 1 gm/ (Sodium Chloride) 100 mls @ 100 mls/hr IVPB DAILY [facility]; Protocol Last Admin: 06/13/18 09:30 Dose: 100 mls/hr Levalbuterol HCl (Xopenex) 1.25 mg INH RQ8 [facility] Last Admin: 06/13/18 15:32 Dose: 1.25 mg Oxycodone/Acetaminophen (Percocet 5/325 Mg Tab) 1 tab PO Q4 PRN PRN Reason: Pain, moderate (4-7) Stop: 06/16/18 05:10 Promethazine HCl (Phenergan Syrup) 12.5 mg PO Q6 PRN PRN Reason: Cough Tacrolimus (Prograf Cap) 2 mg PO HS [facility] Zolpidem Tartrate (Ambien) 5 mg PO HS PRN PRN Reason: insomnia Results - Vital Signs Recent Vital Signs: Last Vital Signs Temp 97.4 F L 06/13/18 16:02 Pulse 70 06/13/18 16:02 Resp 18 06/13/18 16:02 BP 125/90 06/13/18 16:02 Pulse Ox 99 06/13/18 16:02 - Labs Result Diagrams: 06/14/18 04:35 06/14/18 04:35 Labs: Laboratory Results - last 24 hr 06/12/18 06/13/18 06/13/18 22:30 03:10 05:41 WBC 7.2 RBC 4.30 L Hgb 12.7 Hct 38.1 MCV 88.4 MCH 29.6 MCHC 33.4 RDW 13.6 Plt Count 127 L PT INR APTT Sodium 136 Potassium 5.2 H Chloride 104 Carbon Dioxide 15 L Anion Gap 22 H BUN 118 H* Creatinine 6.2 H Est GFR ( Amer) 11 Est GFR (Non-Af Amer) 9 Random Glucose 76 Calcium 8.8 Phosphorus Total Bilirubin 1.4 H AST 15 L D ALT 11 L D Alkaline Phosphatase 133 H Troponin I NT-Pro-B Natriuret Pep Total Protein 7.9 Albumin 3.6 Globulin 4.3 H Albumin/Globulin Ratio 0.8 L Urine Color Yellow Urine Clarity Clear Urine pH 6.0 Ur Specific [place] 1.015 Urine Protein 30 Urine Glucose (UA) Neg Urine Ketones Trace Urine Blood Negative Urine Nitrate Negative Urine Bilirubin Negative Urine Urobilinogen 0.2-1.0 Ur Leukocyte Esterase Neg Urine RBC (Auto) 3 Urine Microscopic WBC 1 Hyaline Casts 3-5 H 06/13/18 06/13/18 06/13/18 05:41 09:50 09:50 WBC RBC Hgb Hct MCV MCH MCHC RDW Plt Count PT 12.4 INR 1.1 APTT 33.7 Sodium 138 Potassium 3.7 Chloride 104 Carbon Dioxide 22 Anion Gap 16 BUN 115 H* Creatinine 6.0 H Est GFR ( Amer) 12 Est GFR (Non-Af Amer) 10 Random Glucose 61 L Calcium 8.8 Phosphorus Total Bilirubin AST ALT Alkaline Phosphatase Troponin I 0.0780 NT-Pro-B Natriuret Pep 24181 H Total Protein Albumin Globulin Albumin/Globulin Ratio Urine Color Urine Clarity Urine pH Ur Specific [place] Urine Protein Urine Glucose (UA) Urine Ketones Urine Blood Urine Nitrate Urine Bilirubin Urine Urobilinogen Ur Leukocyte Esterase Urine RBC (Auto) Urine Microscopic WBC Hyaline Casts 06/13/18 12:15 WBC RBC Hgb Hct MCV MCH MCHC RDW Plt Count PT INR APTT Sodium Potassium Chloride Carbon Dioxide Anion Gap BUN Creatinine Est GFR ( Amer) Est GFR (Non-Af Amer) Random Glucose Calcium Phosphorus 4.5 Total Bilirubin AST ALT Alkaline Phosphatase Troponin I NT-Pro-B Natriuret Pep Total Protein Albumin Globulin Albumin/Globulin Ratio Urine Color Urine Clarity Urine pH Ur Specific [place] Urine Protein Urine Glucose (UA) Urine Ketones Urine Blood Urine Nitrate Urine Bilirubin Urine Urobilinogen Ur Leukocyte Esterase Urine RBC (Auto) Urine Microscopic WBC Hyaline Casts - EKG Data EKG Interpreted by: Myself EKG shows normal: Sinus rhythm Assessment & Plan (1) Acute on chronic combined systolic and diastolic congestive heart failure Assessment and Plan: currently appears volume overloaded. will need dialysis. This will assist with volume removal. Status: Chronic (2) Chronic kidney disease, stage IV (severe) Assessment and Plan: for dialysis Status: Acute (3) Chronic atrial fibrillation Assessment and Plan: will review previous records regarding anticoagulation. Status: Chronic
--- NOTE | 2018-06-13 19:02 | CP.PCM.CON ---
History of Present Illness - History of Present Illness History of Present Illness: COVERAGE DR DR CHACON patient seen/examined full consult to follow acute on chronic renal failure will need dialysis, which will assist with volume overload Past Patient History - Past Medical History & Family History Past Medical History?: Yes - Past Social History Smoking Status: Former Smoker - CARDIAC Hx Cardia Arrhythmia: Yes Hx Congestive Heart Failure: Yes Hx Hypercholesterolemia: Yes Hx Hypertension: Yes Hx Pacemaker: Yes - PULMONARY Hx Pulmonary Embolism: Yes - NEUROLOGICAL Hx Neurological Disorder: No - HEENT Hx Deafness: Yes (left ear) - RENAL Hx Chronic Kidney Disease: Yes - ENDOCRINE/METABOLIC Hx Endocrine Disorders: No Hx Adrenal Cancer: No - HEMATOLOGICAL/ONCOLOGICAL Hx Blood Transfusions: Yes Hx Blood Transfusion Reaction: No Hx Hepatitis B: Yes Other/Comment: dvt - INTEGUMENTARY Hx Dermatological Problems: No - MUSCULOSKELETAL/RHEUMATOLOGICAL Hx Falls: No - GASTROINTESTINAL Other/Comment: Hx liver transplant - GENITOURINARY/GYNECOLOGICAL Hx Genitourinary Disorders: No - PSYCHIATRIC Hx Substance Use: No - SURGICAL HISTORY Hx Liver Transplant: Yes (1998) Other/Comment: brain surgery 1984 - ANESTHESIA Hx Anesthesia: Yes Hx Anesthesia Reactions: No Meds Allergies/Adverse Reactions: Allergies Allergy/AdvReac Type Severity Reaction Status Date / Time No Known Allergies Allergy Verified 06/12/18 15:15 - Medications Medications: Current Medications Alprazolam (Xanax) 0.5 mg PO BID PRN PRN Reason: Anxiety Calcium Acetate (Phoslo) 667 mg PO TID [facility] Last Admin: 06/13/18 16:22 Dose: 667 mg Carvedilol (Coreg) 25 mg PO Q12 [facility] Last Admin: 06/13/18 09:27 Dose: 25 mg Famotidine (Pepcid) 20 mg PO DAILY [facility] Last Admin: 06/13/18 09:27 Dose: 20 mg Heparin Sodium (Porcine) (Heparin) 5,000 units SC Q12 [facility]; Protocol Last Admin: 06/13/18 09:26 Dose: 5,000 units Home Med (Entecavir [Baraclude]) 0.5 mg PO Q48H [facility] Ceftriaxone Sodium 1 gm/ (Sodium Chloride) 100 mls @ 100 mls/hr IVPB DAILY [facility]; Protocol Last Admin: 06/13/18 09:30 Dose: 100 mls/hr Levalbuterol HCl (Xopenex) 1.25 mg INH RQ8 [facility] Last Admin: 06/13/18 15:32 Dose: 1.25 mg Oxycodone/Acetaminophen (Percocet 5/325 Mg Tab) 1 tab PO Q4 PRN PRN Reason: Pain, moderate (4-7) Stop: 06/16/18 05:10 Promethazine HCl (Phenergan Syrup) 12.5 mg PO Q6 PRN PRN Reason: Cough Tacrolimus (Prograf Cap) 2 mg PO HS [facility] Zolpidem Tartrate (Ambien) 5 mg PO HS PRN PRN Reason: insomnia Results - Vital Signs Recent Vital Signs: Last Vital Signs Temp 97.4 F L 06/13/18 16:02 Pulse 70 06/13/18 16:02 Resp 18 06/13/18 16:02 BP 125/90 06/13/18 16:02 Pulse Ox 99 06/13/18 16:02 - Labs Result Diagrams: 06/13/18 05:41 06/13/18 05:41 Labs: Laboratory Results - last 24 hr 06/12/18 06/13/18 06/13/18 22:30 03:10 05:41 WBC 7.2 RBC 4.30 L Hgb 12.7 Hct 38.1 MCV 88.4 MCH 29.6 MCHC 33.4 RDW 13.6 Plt Count 127 L PT INR APTT Sodium 136 Potassium 5.2 H Chloride 104 Carbon Dioxide 15 L Anion Gap 22 H BUN 118 H* Creatinine 6.2 H Est GFR ( Amer) 11 Est GFR (Non-Af Amer) 9 Random Glucose 76 Calcium 8.8 Phosphorus Total Bilirubin 1.4 H AST 15 L D ALT 11 L D Alkaline Phosphatase 133 H Troponin I NT-Pro-B Natriuret Pep Total Protein 7.9 Albumin 3.6 Globulin 4.3 H Albumin/Globulin Ratio 0.8 L Urine Color Yellow Urine Clarity Clear Urine pH 6.0 Ur Specific [place] 1.015 Urine Protein 30 Urine Glucose (UA) Neg Urine Ketones Trace Urine Blood Negative Urine Nitrate Negative Urine Bilirubin Negative Urine Urobilinogen 0.2-1.0 Ur Leukocyte Esterase Neg Urine RBC (Auto) 3 Urine Microscopic WBC 1 Hyaline Casts 3-5 H 06/13/18 06/13/18 06/13/18 05:41 09:50 09:50 WBC RBC Hgb Hct MCV MCH MCHC RDW Plt Count PT 12.4 INR 1.1 APTT 33.7 Sodium 138 Potassium 3.7 Chloride 104 Carbon Dioxide 22 Anion Gap 16 BUN 115 H* Creatinine 6.0 H Est GFR ( Amer) 12 Est GFR (Non-Af Amer) 10 Random Glucose 61 L Calcium 8.8 Phosphorus Total Bilirubin AST ALT Alkaline Phosphatase Troponin I 0.0780 NT-Pro-B Natriuret Pep 67877 H Total Protein Albumin Globulin Albumin/Globulin Ratio Urine Color Urine Clarity Urine pH Ur Specific [place] Urine Protein Urine Glucose (UA) Urine Ketones Urine Blood Urine Nitrate Urine Bilirubin Urine Urobilinogen Ur Leukocyte Esterase Urine RBC (Auto) Urine Microscopic WBC Hyaline Casts 06/13/18 12:15 WBC RBC Hgb Hct MCV MCH MCHC RDW Plt Count PT INR APTT Sodium Potassium Chloride Carbon Dioxide Anion Gap BUN Creatinine Est GFR ( Amer) Est GFR (Non-Af Amer) Random Glucose Calcium Phosphorus 4.5 Total Bilirubin AST ALT Alkaline Phosphatase Troponin I NT-Pro-B Natriuret Pep Total Protein Albumin Globulin Albumin/Globulin Ratio Urine Color Urine Clarity Urine pH Ur Specific [place] Urine Protein Urine Glucose (UA) Urine Ketones Urine Blood Urine Nitrate Urine Bilirubin Urine Urobilinogen Ur Leukocyte Esterase Urine RBC (Auto) Urine Microscopic WBC Hyaline Casts
--- NOTE | 2018-06-13 19:47 | HP ---
HISTORY OF PRESENT ILLNESS: Mr. Barber is a 62-year-old male, who is admitted via the emergency room because of generalized weakness, inability to ambulate, cough, shortness of breath, , mucoid secretions from the upper airways, sore throat, rapid weight loss over the past several weeks associated with swelling of legs and chest congestion. He was last seen by me in 12/2017, at that time was admitted with similar complaints, treated, discharged, but has not followed up with any physician and has not shown up in the office. He indicated that he has not been able to get around and has been bed-bound at home. PAST MEDICAL HISTORY: Congestive heart failure, status post liver transplantation, also has a history of brain tumor that was operated on years ago. Other remarkable medical history is that of cardiac arrhythmias (atrial fibrillation) requiring pacemaker placement recently, has hyperlipidemia, end-stage renal disease for which he had refused hemodialysis. He also has a history of electrolyte imbalance and pneumonia in the past. FAMILY HISTORY: Noncontributory. SOCIAL HISTORY: He lives alone at home, has a supportive partner, does not smoke and does not drink. REVIEW OF SYSTEMS: Essentially remarkable for poor compliance with the treatment and medication. He also has swelling of legs, inability to ambulate. The patient also had poor appetite. PHYSICAL EXAMINATION: GENERAL: The patient appears emaciated. VITAL SIGNS: Blood pressure of 136/92 with a pulse of 70, regular with few extra systoles, respiratory rate is 18 per minute. O2 sat 97% on nasal cannula oxygen. Temperature 98.1 degrees Fahrenheit. SKIN: Shows poor turgor. HEENT: Pupils are equal and reactive to light and accommodation with sunken eyes. Mouth shows poor hygiene with mucus engorgement of pharynx. JVP flat. LUNGS: Coarse bilateral rales and wheezing. Dullness at both bases. HEART: Regular with few extra systoles. Has a pacemaker in place. ABDOMEN: Soft, no tenderness appreciated. No organomegaly appreciated. There is scar of prior surgery. EXTREMITIES: Show 2+ pitting and pedal edema with muscle tone. GENITALIA AND RECTAL: Deferred for now. CENTRAL NERVOUS SYSTEM: The patient appears very weak, but has no gross deficits except for weakness of muscles. He is alert and oriented x3. LABORATORY DATA: Remarkable for sodium of 138, potassium 6, BUN of 122, creatinine 6.4, AST 23, ALT less than 6. ProBNP 12,700. Calcium 9.1. WBC 9.1, hemoglobin 14, platelet count 130,000. Urinalysis remarkable except for 3 to 5 of hyaline casts. EKG, official report pending. CT scan of the chest done, official report pending. IMPRESSION: A 62-year-old male with multiple medical problems, who presents with acute on chronic renal failure, congestive heart failure,cardiac dz, severe dehydration, upper respiratory tract infection, pneumonia, history of liver transplantation in the past, history of brain tumor in the past, history of poor compliance to medication and therapy and followup, hyperkalemia presently probably secondary to acute renal failure and chronic renal failure, failure to thrive. PLAN: The plan is Cardiology and Nephrology evaluation. Slow diuresis. Will need dialysis. Antibiotics for upper respiratory tract infection. We would obtain Social Service's intervention to determine need for subacute care prior to discharge home. DNR/DNI discussed with the patient. He has not decided about his code status. We would continue therapy as ordered. Prognosis is actually guarded. Grey Arriaga MD [id number]
[2018-06-13 21:03] LABS: HEPATITIS B SURFACE AG Negative (NEGATIVE)
[2018-06-13 21:08] LABS: HEPATITIS A IGM NEGATIVE (NEGATIVE); HEPATITIS B CORE AB NEGATIVE (NEGATIVE)
[2018-06-13 21:20] LABS: HEPATITIS C ANTIBODY NEGATIVE (NEGATIVE)
[2018-06-14 05:37] LABS: HEMOGLOBIN 12.7 g/dL (12.0-18.0); MEAN CELL VOLUME 88.5 fl (80.0-94.0); MEAN CORPUSCULAR HEMOGLOBIN 29.6 pg (27.0-31.0); MEAN CORPUSCULAR HGB CONC 33.4 g/dL (33.0-37.0); RBC 4.3 Mil/uL (4.40-5.90); RED CELL DISTRIBUTION WIDTH 13.5 % (11.5-14.5); WHITE BLOOD COUNT 5.3 K/uL (4.8-10.8)
[2018-06-14 06:37] LABS: CALCIUM 9.3 mg/dL (8.4-10.2)
[2018-06-14] MEDS: Levalbuterol 1.25 MG/3 ML Inhal Soln UD INH SCH ×3 (07:41→23:28)
[2018-06-14 09:22] LABS: ABG ALLEN TEST YES; ARTERIAL BLOOD GAS HCO3 22.7 mmol/L (21-28); ARTERIAL BLOOD GAS O2 SAT 100.6 % (95-98); ARTERIAL BLOOD GAS PCO2 32 mm/Hg (35-45); ARTERIAL BLOOD GAS PH 7.42 (7.35-7.45); ARTERIAL BLOOD GAS PO2 93 mm/Hg (80-100); ARTERIAL BLOOD GAS TCO2 21.8 mmol/L (22-28)
[2018-06-14] MEDS ORDERED: Lidocaine 1% Inj (20ml) ONE (09:50)
--- NOTE | 2018-06-14 10:15 | CP.PCM.PN ---
Subjective - Date & Time of Evaluation Date of Evaluation: 06/14/18 Time of Evaluation: 10:16 - Subjective Subjective: MORE DYSPNEIC TODAY NOW AGREES TO HAVE DIALYSIS Objective - Vital Signs/Intake and Output Vital Signs (last 24 hours): Temp Pulse Resp BP Pulse Ox 97.6 F 83 18 132/54 L 96 06/14/18 08:10 06/14/18 08:10 06/14/18 08:10 06/14/18 09:35 06/14/18 08:10 - Medications Medications: Current Medications Alprazolam (Xanax) 0.5 mg PO BID PRN PRN Reason: Anxiety Calcium Acetate (Phoslo) 667 mg PO TID [facility] Last Admin: 06/14/18 09:37 Dose: 667 mg Carvedilol (Coreg) 25 mg PO Q12 [facility] Last Admin: 06/14/18 09:37 Dose: 25 mg Famotidine (Pepcid) 20 mg PO DAILY [facility] Last Admin: 06/14/18 09:37 Dose: 20 mg Heparin Sodium (Porcine) (Heparin) 5,000 units SC Q12 [facility]; Protocol Last Admin: 06/14/18 09:37 Dose: 5,000 units Home Med (Entecavir [Baraclude]) 0.5 mg PO Q48H [facility] Ceftriaxone Sodium 1 gm/ (Sodium Chloride) 100 mls @ 100 mls/hr IVPB DAILY [facility]; Protocol Last Admin: 06/13/18 09:30 Dose: 100 mls/hr Levalbuterol HCl (Xopenex) 1.25 mg INH RQ8 [facility] Last Admin: 06/14/18 07:41 Dose: 1.25 mg Oxycodone/Acetaminophen (Percocet 5/325 Mg Tab) 1 tab PO Q4 PRN PRN Reason: Pain, moderate (4-7) Stop: 06/16/18 05:10 Promethazine HCl (Phenergan Syrup) 12.5 mg PO Q6 PRN PRN Reason: Cough Tacrolimus (Prograf Cap) 2 mg PO HS [facility] Last Admin: 06/13/18 21:35 Dose: 2 mg Zolpidem Tartrate (Ambien) 5 mg PO HS PRN PRN Reason: insomnia - Labs Labs: 06/14/18 04:35 06/14/18 04:35 PT 12.4 Seconds (9.8-13.1) 06/13/18 09:50 INR 1.1 06/13/18 09:50 APTT 33.6 Seconds (25.6-37.1) 06/14/18 04:35 - Constitutional Appears: In Acute Distress, Chronically Ill - Head Exam Head Exam: ATRAUMATIC, NORMAL INSPECTION, NORMOCEPHALIC - Eye Exam Eye Exam: EOMI, Normal appearance, PERRL Pupil Exam: NORMAL ACCOMODATION, PERRL - ENT Exam ENT Exam: Mucous Membranes Moist, Normal Exam - Neck Exam Neck Exam: Full ROM, Normal Inspection. absent: Lymphadenopathy - Respiratory Exam Respiratory Exam: Decreased Breath Sounds, Prolonged Expiratory Phase, Rales Additional comments: LABORED RESPIRATIONS - Cardiovascular Exam Cardiovascular Exam: REGULAR RHYTHM, +S1, +S2. absent: Murmur - GI/Abdominal Exam GI & Abdominal Exam: Soft, Normal Bowel Sounds. absent: Tenderness - Rectal Exam Rectal Exam: NORMAL INSPECTION - Extremities Exam Extremities Exam: Full ROM, Normal Capillary Refill, Pedal Edema. absent: Joint Swelling - Back Exam Back Exam: NORMAL INSPECTION - Neurological Exam Neurological Exam: Abnormal Gait, Alert, Awake, CN II-XII Intact, Oriented x3 - Psychiatric Exam Psychiatric exam: Depressed - Skin Skin Exam: Dry, Intact, Normal Color, Warm Assessment and Plan - Assessment and Plan (Free Text) Assessment: ACUTE ON CHRONIC RENAL FAILURE--STAGE 4 CHF HX OF CARDIOMYOPATHY WITH PACEMAKER PLACEMENT HX OF LIVER TRANSPLANT HX OF BRAIN CANCER POOR COMPLIANCE TO RX Plan: FOR DIALYSIS CATH PLACEMENT AND HEMODIALYSIS TODAY PROGNOSIS IS GUARDED
--- NOTE | 2018-06-14 10:33 | PCM.SURG1 ---
Surgeon's Initial Post Op Note - Surgeon's Notes Surgeon: Jabari Das MD Radio Board Operator: NONE Type of Anesthesia: Local Pre-Operative Diagnosis: ESRD Operative Findings: US showed no right IJV. Left IJV patent. Post-Operative Diagnosis: ESRD Operation Performed: Tunneled HD catheter placement left IJV, 23 cm cuff to tip. Specimen/Specimens Removed: NONE Estimated Blood Loss: EBL {In ML}: 2 Blood Products Given: N/A Drains Used: No Drains Post-Op Condition: Fair Date of Surgery/Procedure: 06/14/18 Time of Surgery/Procedure: 10:30
--- NOTE | 2018-06-14 11:22 | VASCULAR ---
PROCEDURE: Date of procedure: 06/14/2018 Procedure: 1. Placement of left IJ tunneled hemodialysis catheter Medications: 14 cc 1 percent lidocaine EBL: 4 cc FLUOROSCOPY TIME: 23.6 seconds RADIATION: 3.13 mGy HISTORY: Renal failure requiring hemodialysis TECHNIQUE: Following informed consent and procedure time-out, the patient was placed supine on the interventional table and the skin was marked. A limited ultrasound patient's right neck was performed which showed no internal jugular vein. Left neck showed a patent compressible internal jugular vein. Under direct ultrasound guidance, the left internal jugular vein was accessed with micropuncture technique and a guidewire was advanced under fluoroscopic guidance into the superior vena cava. An image documenting ultrasound guidance for vascular access was permanently saved. A 23 centimeter cuff to tip hemodialysis catheter was then tunneled under the skin and hold the venotomy site. The venotomy was then serially dilated to accommodate the peel-away sheath. The hemodialysis catheter was then advanced through a peel-away sheath. The catheter is positioned with tip in the superior vena cava confirm with fluoroscopic image. The catheter was tested and has adequate blood flow for hemodialysis. The catheter was flushed and locked with heparin per specified amount. The catheter secured to the skin with a 2-0 prolene. IMPRESSION: Placement of left tunneled hemodialysis 23-cm cuff-to-tip catheter The catheter tip is confirmed with spot radiograph and is in the superior vena cava. The catheter is functional and ready for use.
--- NOTE | 2018-06-14 14:18 | CP.PCM.PN ---
Subjective - Date & Time of Evaluation Date of Evaluation: 06/14/18 Time of Evaluation: 14:18 - Subjective Subjective: Dialysis note He was seen on hemodialysis now. Vital signs stable. Patient sitting up in bed. Complaining of shortness of breath. No vomiting although complaining of sore throat as well Objective - Vital Signs/Intake and Output Vital Signs (last 24 hours): Temp Pulse Resp BP Pulse Ox 97.3 F L 70 18 149/99 H 100 06/14/18 12:11 06/14/18 12:11 06/14/18 12:11 06/14/18 12:11 06/14/18 12:11 - Medications Medications: Current Medications Alprazolam (Xanax) 0.5 mg PO BID PRN PRN Reason: Anxiety Calcium Acetate (Phoslo) 667 mg PO TID [facility] Last Admin: 06/14/18 09:37 Dose: 667 mg Carvedilol (Coreg) 25 mg PO Q12 [facility] Last Admin: 06/14/18 09:37 Dose: 25 mg Famotidine (Pepcid) 20 mg PO DAILY [facility] Last Admin: 06/14/18 09:37 Dose: 20 mg Heparin Sodium (Porcine) (Heparin) 5,000 units SC Q12 [facility]; Protocol Last Admin: 06/14/18 09:37 Dose: 5,000 units Home Med (Entecavir [Baraclude]) 0.5 mg PO Q48H [facility] Ceftriaxone Sodium 1 gm/ (Sodium Chloride) 100 mls @ 100 mls/hr IVPB DAILY [facility]; Protocol Last Admin: 06/13/18 09:30 Dose: 100 mls/hr Levalbuterol HCl (Xopenex) 1.25 mg INH RQ8 [facility] Last Admin: 06/14/18 07:41 Dose: 1.25 mg Oxycodone/Acetaminophen (Percocet 5/325 Mg Tab) 1 tab PO Q4 PRN PRN Reason: Pain, moderate (4-7) Stop: 06/16/18 05:10 Promethazine HCl (Phenergan Syrup) 12.5 mg PO Q6 PRN PRN Reason: Cough Tacrolimus (Prograf Cap) 2 mg PO HS [facility] Last Admin: 06/13/18 21:35 Dose: 2 mg Zolpidem Tartrate (Ambien) 5 mg PO HS PRN PRN Reason: insomnia - Labs Labs: 06/14/18 04:35 06/14/18 04:35 PT 12.4 Seconds (9.8-13.1) 06/13/18 09:50 INR 1.1 06/13/18 09:50 APTT 33.6 Seconds (25.6-37.1) 06/14/18 04:35 - Constitutional Appears: No Acute Distress - Eye Exam Eye Exam: Conjunctival injection - ENT Exam ENT Exam: Mucous Membranes Moist - Neck Exam Neck Exam: absent: Lymphadenopathy - Respiratory Exam Respiratory Exam: Rhonchi, NORMAL BREATHING PATTERN. absent: Chest Wall Tenderness - Cardiovascular Exam Cardiovascular Exam: absent: Gallop, JVD, Rubs - GI/Abdominal Exam GI & Abdominal Exam: Soft, Normal Bowel Sounds - Extremities Exam Extremities Exam: absent: Calf Tenderness - Back Exam Back Exam: absent: CVA tenderness (L), CVA tenderness (R) - Neurological Exam Neurological Exam: Alert - Psychiatric Exam Psychiatric exam: Normal Affect - Skin Skin Exam: absent: Cyanosis Assessment and Plan (1) Chronic kidney disease, stage V Assessment & Plan: He was seen on hemodialysis through her left permacath in the upper chest. Consent was taken dialysis started order was discussed with the dialysis nurse . Ultrafiltration 750 cc today and tomorrow home History of liver transplant History of pacemaker History of brain tumor Chronic congestive heart failure history / volume overload Recommendation Continue hemodialysis today and tomorrow And next week Sunday to monitor kidney function blood test. Antibiotics as per primary team based on GFR Serum phosphorus PTH protein to creatinine ratio is still pending Status: Acute (2) Acute on chronic systolic (congestive) heart failure Status: Acute (3) Generalized muscle weakness Status: Chronic (4) ASHD (arteriosclerotic heart disease) Status: Acute
--- NOTE | 2018-06-14 19:10 | CP.PCM.PN ---
Subjective - Date & Time of Evaluation Date of Evaluation: 06/14/18 Time of Evaluation: 18:45 - Subjective Subjective: s/p dialysis today. hoarseness presists Objective - Vital Signs/Intake and Output Vital Signs (last 24 hours): Temp Pulse Resp BP Pulse Ox 96.0 F L 70 18 95/70 L 98 06/14/18 15:38 06/14/18 15:38 06/14/18 15:38 06/14/18 15:38 06/14/18 15:38 - Medications Medications: Current Medications Alprazolam (Xanax) 0.5 mg PO BID PRN PRN Reason: Anxiety Calcium Acetate (Phoslo) 667 mg PO TID [facility] Last Admin: 06/14/18 17:10 Dose: 667 mg Carvedilol (Coreg) 25 mg PO Q12 [facility] Last Admin: 06/14/18 09:37 Dose: 25 mg Famotidine (Pepcid) 20 mg PO DAILY [facility] Last Admin: 06/14/18 09:37 Dose: 20 mg Heparin Sodium (Porcine) (Heparin) 5,000 units SC Q12 [facility]; Protocol Last Admin: 06/14/18 09:37 Dose: 5,000 units Home Med (Entecavir [Baraclude]) 0.5 mg PO Q48H [facility] Ceftriaxone Sodium 1 gm/ (Sodium Chloride) 100 mls @ 100 mls/hr IVPB DAILY [facility]; Protocol Last Admin: 06/13/18 09:30 Dose: 100 mls/hr Levalbuterol HCl (Xopenex) 1.25 mg INH RQ8 [facility] Last Admin: 06/14/18 16:28 Dose: 1.25 mg Oxycodone/Acetaminophen (Percocet 5/325 Mg Tab) 1 tab PO Q4 PRN PRN Reason: Pain, moderate (4-7) Stop: 06/16/18 05:10 Promethazine HCl (Phenergan Syrup) 12.5 mg PO Q6 PRN PRN Reason: Cough Tacrolimus (Prograf Cap) 2 mg PO HS [facility] Last Admin: 06/13/18 21:35 Dose: 2 mg Zolpidem Tartrate (Ambien) 5 mg PO HS PRN PRN Reason: insomnia - Labs Labs: 06/14/18 04:35 06/14/18 04:35 PT 12.4 Seconds (9.8-13.1) 06/13/18 09:50 INR 1.1 06/13/18 09:50 APTT 33.6 Seconds (25.6-37.1) 06/14/18 04:35 - Constitutional Appears: Chronically Ill - Head Exam Head Exam: NORMAL INSPECTION - Eye Exam Eye Exam: Normal appearance - ENT Exam ENT Exam: Mucous Membranes Moist - Neck Exam Neck Exam: Full ROM - Respiratory Exam Respiratory Exam: Decreased Breath Sounds - Cardiovascular Exam Cardiovascular Exam: REGULAR RHYTHM - GI/Abdominal Exam GI & Abdominal Exam: Normal Bowel Sounds - Rectal Exam Rectal Exam: Deferred - Extremities Exam Extremities Exam: Pedal Edema - Back Exam Back Exam: NORMAL INSPECTION - Neurological Exam Neurological Exam: Alert - Psychiatric Exam Psychiatric exam: Normal Affect - Skin Skin Exam: Normal Color Assessment and Plan (1) Acute on chronic combined systolic and diastolic congestive heart failure Assessment & Plan: will continue dialysis for volume control. betablocker therapy Status: Chronic (2) Chronic kidney disease, stage IV (severe) Assessment & Plan: on dialysis Status: Acute (3) Chronic atrial fibrillation Assessment & Plan: patient states he was on Xarelto as an outpatient. consider restarting if no procedures scheduled Status: Chronic
[2018-06-14] MEDS: Oxycodone/Acetaminophen 5/325 mg Tab PO PRN (20:05)
[2018-06-15] MEDS: Levalbuterol 1.25 MG/3 ML Inhal Soln UD INH SCH ×3 (07:52→23:34)
--- NOTE | 2018-06-15 10:26 | CP.PCM.PN ---
Subjective - Date & Time of Evaluation Date of Evaluation: 06/15/18 Time of Evaluation: 10:27 - Subjective Subjective: still hoarse feels weak appetite poor Objective - Vital Signs/Intake and Output Vital Signs (last 24 hours): Temp Pulse Resp BP Pulse Ox 97.5 F L 70 18 151/96 H 100 06/15/18 07:40 06/15/18 07:40 06/15/18 07:40 06/15/18 07:40 06/15/18 07:40 - Medications Medications: Current Medications Alprazolam (Xanax) 0.5 mg PO BID PRN PRN Reason: Anxiety Calcium Acetate (Phoslo) 667 mg PO TID [facility] Last Admin: 06/14/18 17:10 Dose: 667 mg Carvedilol (Coreg) 25 mg PO Q12 [facility] Last Admin: 06/14/18 22:21 Dose: 25 mg Famotidine (Pepcid) 20 mg PO DAILY [facility] Last Admin: 06/14/18 09:37 Dose: 20 mg Heparin Sodium (Porcine) (Heparin) 5,000 units SC Q12 [facility]; Protocol Last Admin: 06/14/18 22:21 Dose: 5,000 units Home Med (Entecavir [Baraclude]) 0.5 mg PO Q48H [facility] Ceftriaxone Sodium 1 gm/ (Sodium Chloride) 100 mls @ 100 mls/hr IVPB DAILY [facility]; Protocol Last Admin: 06/13/18 09:30 Dose: 100 mls/hr Levalbuterol HCl (Xopenex) 1.25 mg INH RQ8 [facility] Last Admin: 06/15/18 07:52 Dose: 1.25 mg Oxycodone/Acetaminophen (Percocet 5/325 Mg Tab) 1 tab PO Q4 PRN PRN Reason: Pain, moderate (4-7) Stop: 06/16/18 05:10 Last Admin: 06/14/18 20:05 Dose: 1 tab Promethazine HCl (Phenergan Syrup) 12.5 mg PO Q6 PRN PRN Reason: Cough Tacrolimus (Prograf Cap) 2 mg PO HS [facility] Last Admin: 06/14/18 22:21 Dose: 2 mg Zolpidem Tartrate (Ambien) 5 mg PO HS PRN PRN Reason: insomnia - Labs Labs: 06/14/18 04:35 06/14/18 04:35 PT 12.4 Seconds (9.8-13.1) 06/13/18 09:50 INR 1.1 06/13/18 09:50 APTT 33.6 Seconds (25.6-37.1) 06/14/18 04:35 - Constitutional Appears: Chronically Ill - Head Exam Head Exam: ATRAUMATIC, NORMAL INSPECTION, NORMOCEPHALIC - Eye Exam Eye Exam: EOMI, Normal appearance, PERRL Pupil Exam: NORMAL ACCOMODATION, PERRL - ENT Exam ENT Exam: Mucous Membranes Moist, Normal Exam - Neck Exam Neck Exam: Full ROM, Normal Inspection. absent: Lymphadenopathy - Respiratory Exam Respiratory Exam: Rales, NORMAL BREATHING PATTERN - Cardiovascular Exam Cardiovascular Exam: REGULAR RHYTHM, +S1, +S2. absent: Murmur - GI/Abdominal Exam GI & Abdominal Exam: Soft, Normal Bowel Sounds. absent: Tenderness - Rectal Exam Rectal Exam: NORMAL INSPECTION - Extremities Exam Extremities Exam: Full ROM, Normal Capillary Refill, Pedal Edema. absent: Joint Swelling - Back Exam Back Exam: NORMAL INSPECTION - Neurological Exam Neurological Exam: Abnormal Gait, Alert, Awake, CN II-XII Intact, Oriented x3 - Psychiatric Exam Psychiatric exam: Normal Affect, Normal Mood - Skin Skin Exam: Dry, Intact, Normal Color, Warm Assessment and Plan - Assessment and Plan (Free Text) Assessment: acute on chronic kidney dz--stage 4 cardiomyopathy arrythmias s/p pacemaker placement hx of liver transplant htn general debility failure to thrive laryngitis Plan: continue current rx and hemodialysis will obtain ent eval for laryngitis/hoarseness
--- NOTE | 2018-06-15 18:32 | CT ---
Date of service: 06/15/2018 PROCEDURE: CT NECK WITHOUT CONTRAST HISTORY: Left vocal cord paralysis COMPARISON: None available. TECHNIQUE: CT of the neck without intravenous contrast. Coronal and sagittal reformats generated. Radiation dose: Total exam DLP = 376.43 mGy-cm. This CT exam was performed using one or more of the following dose reduction techniques: Automated exposure control, adjustment of the mA and/or kV according to patient size, and/or use of iterative reconstruction technique. FINDINGS: There has been interval placement of a large-bore left IJ dialysis catheter the tip of which has not been included on this film. Multi lead pacemaker wires are also visualized traversing the left subclavian vein and left brachiocephalic vein. NASOPHARYNX: Unremarkable. SUPRAHYOID NECK: Unremarkable oropharynx, oral cavity, parapharyngeal space and retropharyngeal space. INFRAHYOID NECK: There is slight medial displacement-position of the left true vocal cord consistent with this patient's history of left vocal cord paralysis. Mild asymmetry of the pyriform sinus and left aryepiglottic fold as a result. No definitive soft tissue mass density is seen along the left true vocal cord. Note is made of a elliptical shaped radiopaque density abutting the left and mid aspect of the free margin of the epiglottis extending inferiorly to the into the posterior mid and left aspect of the vallecula of uncertain etiology though could represent inspissated food debris. The left aspect of the vallecula is asymmetrically smaller than the right right-side. No obvious mass is seen in the AP window although there are a few small nonspecific mediastinal lymph nodes present in this location as well as in the anterior and right paratracheal region. MASS: There is a large elliptical shaped expansile-lytic lesion the epicenter of which is located in the left petrous bone which is occupied by heterogeneous soft tissue that extends posteriorly into the left CP angle region and results in some compressive effects on the left anterior inferior cerebellar hemisphere. Lesion occupies the left petrous canal and jugular foramen and extends anterior and inferiorly along the expected course of the with extension tumor presumably compressing and or occupying the left eustachian tube with bulky appearance of the left torus tubarius with associated asymmetry of the fossa of Rosenmuller left-sided which is smaller and partially compressed. Differential diagnosis would include a large glomus jugulare or glomus vagale. Possibility of a large jugular foramen schwannoma or metastatic lesion should be excluded... A squamous cell carcinoma would be less likely given the epicenter of the lesion though not completely excluded. There is associated complete opacification of the left mastoid air complex and left middle ear canal. GLANDS: Parotid and submandibular glands unremarkable. Normal size thyroid gland, without nodule. LYMPH NODES: Normal. No lymphadenopathy. CERVICAL SPINE: Multilevel degenerative spondylosis of the cervical spine OTHER FINDINGS: There is a large left suboccipital craniectomy defect Minor atherosclerotic plaque right and to a lesser degree left carotid circulations. IMPRESSION: There is a large lytic lesion the epicenter of which is located in the left petrous bone occupied by a heterogeneous soft tissue mass lesion. There are expansile and lytic changes of the surrounding bone with apparent breakthrough into the of tumor into the left CP angle with compressive effects on the anterior inferior aspect of the left cerebellar hemisphere this lesion also occupies the left petrous canal and portion of the jugular foramen. 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 Rule out large jugular foramen schwannoma or metastatic lesion. Squamous cell carcinoma would be less likely given the epicenter of this lesion. There opacification of the left mastoid air complex and left middle ear canal with extension tumor presumably compressing and or occupying the left eustachian tube with bulky appearance of the left torus tubarius with associated asymmetry of the fossa of Rosenmuller left-sided which is smaller and partially compressed. Left-sided vocal cord paralysis. Questionable inspissated food debris within the mid and left aspect of the vallecula. Large left-sided suboccipital craniectomy defect. Clinical correlation with surgical history recommended.
[2018-06-15] MEDS: Oxycodone/Acetaminophen 5/325 mg Tab PO PRN (20:14)
--- NOTE | 2018-06-15 23:10 | CP.PCM.PN ---
Subjective - Date & Time of Evaluation Date of Evaluation: 06/15/18 Time of Evaluation: 23:06 - Subjective Subjective: renal follow up note vitals reviewed heent unchanged no jvd s1s2 present no resp distress abdsoft nt nd skin normla normal affect ao times 3 PIERRE/CKD stage 5/hx of liver transplant/h x of pPM/chf/head and neck tumor hd second session today , access issues, tpa the catheter and attempt tomorrow lytes reviewed bp stable head and neck cancer, planned for or, high risk for bleeding sec to high BUN, recommend few more dialysis sessions monitor phos levels anemia monitor Objective - Vital Signs/Intake and Output Vital Signs (last 24 hours): Temp Pulse Resp BP Pulse Ox 97.8 F 70 18 136/86 94 L 06/15/18 19:55 06/15/18 21:46 06/15/18 19:55 06/15/18 21:46 06/15/18 19:55 - Medications Medications: Current Medications Alprazolam (Xanax) 0.5 mg PO BID PRN PRN Reason: Anxiety Calcium Acetate (Phoslo) 667 mg PO TID [facility] Last Admin: 06/15/18 17:46 Dose: Not Given Carvedilol (Coreg) 25 mg PO Q12 [facility] Last Admin: 06/15/18 21:46 Dose: 25 mg Famotidine (Pepcid) 20 mg PO DAILY [facility] Last Admin: 06/15/18 10:48 Dose: 20 mg Heparin Sodium (Porcine) (Heparin) 5,000 units SC Q12 [facility]; Protocol Last Admin: 06/15/18 21:47 Dose: 5,000 units Home Med (Entecavir [Baraclude]) 0.5 mg PO Q48H [facility] Ceftriaxone Sodium 1 gm/ (Sodium Chloride) 100 mls @ 100 mls/hr IVPB DAILY [facility]; Protocol Last Admin: 06/15/18 10:49 Dose: 100 mls/hr Levalbuterol HCl (Xopenex) 1.25 mg INH RQ8 [facility] Last Admin: 06/15/18 15:36 Dose: 1.25 mg Oxycodone/Acetaminophen (Percocet 5/325 Mg Tab) 1 tab PO Q4 PRN PRN Reason: Pain, moderate (4-7) Stop: 06/16/18 05:10 Last Admin: 06/15/18 20:14 Dose: 1 tab Promethazine HCl (Phenergan Syrup) 12.5 mg PO Q6 PRN PRN Reason: Cough Tacrolimus (Prograf Cap) 2 mg PO HS [facility] Last Admin: 06/15/18 21:47 Dose: 2 mg Zolpidem Tartrate (Ambien) 5 mg PO HS PRN PRN Reason: insomnia - Labs Labs: 06/14/18 04:35 06/14/18 04:35 PT 12.4 Seconds (9.8-13.1) 06/13/18 09:50 INR 1.1 06/13/18 09:50 APTT 33.6 Seconds (25.6-37.1) 06/14/18 04:35
--- NOTE | 2018-06-16 00:36 | OP ---
PROCEDURE DATE: 06/15/2018 PREOPERATIVE DIAGNOSIS: Hoarseness. POSTOPERATIVE DIAGNOSIS: Hoarseness. PROCEDURE: Flexible laryngoscopy. SIGNIFICANT FINDINGS: Left vocal cord not movable. DESCRIPTION OF PROCEDURE: The patient was placed in a seated position, and the nose was decongested using Afrin. Flexible laryngoscope was inserted into the nasal cavity, passed through the nasopharynx, oropharynx, and hypopharynx. Pharyngeal norris, base of tongue, vallecula, epiglottis, AE folds, false cords, true cords, arytenoids, and piriform sinuses were brought into view. No masses or lesions were noted. The left vocal cord was noted not to be movable. The scope was removed. The patient tolerated the procedure well. The patient had CT of chest done which did not show any masses. We will obtain MRI of the neck. Georges Baker MD
[2018-06-16] MEDS: Levalbuterol 1.25 MG/3 ML Inhal Soln UD INH SCH ×3 (08:45→23:42)
--- NOTE | 2018-06-16 11:07 | CP.PCM.PN ---
Subjective - Date & Time of Evaluation Date of Evaluation: 06/16/18 Time of Evaluation: 11:09 - Subjective Subjective: C/O SOB DURING DIALYSIS RESULTS OF CTSCAN AND ENT EVAL DISCUSSED WITH PT[HE UNDERSTANDS THAT HE MAY HAVE HEAD/NECK MALIGNANCY AND MAY NEED SURGERY] Objective - Vital Signs/Intake and Output Vital Signs (last 24 hours): Temp Pulse Resp BP Pulse Ox 97.4 F L 71 18 128/85 95 06/16/18 08:00 06/16/18 08:00 06/16/18 08:00 06/16/18 08:00 06/16/18 08:00 - Medications Medications: Current Medications Alprazolam (Xanax) 0.5 mg PO BID PRN PRN Reason: Anxiety Calcium Acetate (Phoslo) 667 mg PO TID [facility] Last Admin: 06/16/18 10:01 Dose: 667 mg Carvedilol (Coreg) 25 mg PO Q12 [facility] Last Admin: 06/16/18 10:01 Dose: 25 mg Famotidine (Pepcid) 20 mg PO DAILY [facility] Last Admin: 06/16/18 10:02 Dose: 20 mg Heparin Sodium (Porcine) (Heparin) 5,000 units SC Q12 [facility]; Protocol Last Admin: 06/15/18 21:47 Dose: 5,000 units Home Med (Entecavir [Baraclude]) 0.5 mg PO Q48H [facility] Ceftriaxone Sodium 1 gm/ (Sodium Chloride) 100 mls @ 100 mls/hr IVPB DAILY [facility]; Protocol Last Admin: 06/15/18 10:49 Dose: 100 mls/hr Levalbuterol HCl (Xopenex) 1.25 mg INH RQ8 [facility] Last Admin: 06/16/18 08:45 Dose: 1.25 mg Promethazine HCl (Phenergan Syrup) 12.5 mg PO Q6 PRN PRN Reason: Cough Tacrolimus (Prograf Cap) 2 mg PO HS [facility] Last Admin: 06/15/18 21:47 Dose: 2 mg Zolpidem Tartrate (Amb[facility]) 5 mg PO HS PRN PRN Reason: insomnia - Labs Labs: 06/14/18 04:35 06/14/18 04:35 PT 12.4 Seconds (9.8-13.1) 06/13/18 09:50 INR 1.1 06/13/18 09:50 APTT 33.6 Seconds (25.6-37.1) 06/14/18 04:35 - Constitutional Appears: In Acute Distress, Chronically Ill - Head Exam Head Exam: ATRAUMATIC, NORMAL INSPECTION, NORMOCEPHALIC - Eye Exam Eye Exam: EOMI, Normal appearance, PERRL Pupil Exam: NORMAL ACCOMODATION, PERRL - ENT Exam ENT Exam: Mucous Membranes Moist, Normal Exam - Neck Exam Neck Exam: Full ROM, Normal Inspection. absent: Lymphadenopathy - Respiratory Exam Respiratory Exam: Decreased Breath Sounds, Rales, NORMAL BREATHING PATTERN - Cardiovascular Exam Cardiovascular Exam: REGULAR RHYTHM, +S1, +S2. absent: Murmur - GI/Abdominal Exam GI & Abdominal Exam: Soft, Normal Bowel Sounds. absent: Tenderness - Rectal Exam Rectal Exam: NORMAL INSPECTION - Exam Speculum exam: NORMAL SPECULUM EXAM - Extremities Exam Extremities Exam: Full ROM, Normal Capillary Refill, Normal Inspection. absent: Joint Swelling, Pedal Edema - Back Exam Back Exam: NORMAL INSPECTION - Neurological Exam Neurological Exam: Alert, Awake, CN II-XII Intact, Normal Gait, Oriented x3 - Psychiatric Exam Psychiatric exam: Normal Affect, Normal Mood - Skin Skin Exam: Dry, Intact, Normal Color, Warm Assessment and Plan - Assessment and Plan (Free Text) Assessment: ACUTE ON CHRONIC RENAL FAILURE HOARSENESS HEAD/NECK MASS--R/O MALIGNANCY CARDIOMYOPATHY HX OF LIVER TRANSPLANT HX OF BRAIN SURGERY Plan: CHANGE O2 TO FACEMASK DIALYSIS CARDIAC/NEPHROLOGY CLEARANCE FOR POSSIBLE HEAD AND NECK SURGERY
--- NOTE | 2018-06-16 12:20 | CP.PCM.PN ---
Subjective - Date & Time of Evaluation Date of Evaluation: 06/16/18 Time of Evaluation: 12:00 - Subjective Subjective: patient is currently undergoing dialysis. CT scan results noted. Objective - Vital Signs/Intake and Output Vital Signs (last 24 hours): Temp Pulse Resp BP Pulse Ox 97.4 F L 71 18 128/85 95 06/16/18 08:00 06/16/18 08:00 06/16/18 08:00 06/16/18 08:00 06/16/18 08:00 - Medications Medications: Current Medications Alprazolam (Xanax) 0.5 mg PO BID PRN PRN Reason: Anxiety Calcium Acetate (Phoslo) 667 mg PO TID [facility] Last Admin: 06/16/18 10:01 Dose: 667 mg Carvedilol (Coreg) 25 mg PO Q12 [facility] Last Admin: 06/16/18 10:01 Dose: 25 mg Famotidine (Pepcid) 20 mg PO DAILY [facility] Last Admin: 06/16/18 10:02 Dose: 20 mg Heparin Sodium (Porcine) (Heparin) 5,000 units SC Q12 [facility]; Protocol Last Admin: 06/15/18 21:47 Dose: 5,000 units Home Med (Entecavir [Baraclude]) 0.5 mg PO Q48H [facility] Ceftriaxone Sodium 1 gm/ (Sodium Chloride) 100 mls @ 100 mls/hr IVPB DAILY [facility]; Protocol Last Admin: 06/15/18 10:49 Dose: 100 mls/hr Levalbuterol HCl (Xopenex) 1.25 mg INH RQ8 [facility] Last Admin: 06/16/18 08:45 Dose: 1.25 mg Promethazine HCl (Phenergan Syrup) 12.5 mg PO Q6 PRN PRN Reason: Cough Tacrolimus (Prograf Cap) 2 mg PO HS [facility] Last Admin: 06/15/18 21:47 Dose: 2 mg Zolpidem Tartrate (Ambien) 5 mg PO HS PRN PRN Reason: insomnia - Labs Labs: 06/14/18 04:35 06/14/18 04:35 PT 12.4 Seconds (9.8-13.1) 06/13/18 09:50 INR 1.1 06/13/18 09:50 APTT 33.6 Seconds (25.6-37.1) 06/14/18 04:35 - Constitutional Appears: Chronically Ill - Head Exam Head Exam: NORMAL INSPECTION - Eye Exam Eye Exam: Normal appearance - ENT Exam ENT Exam: Mucous Membranes Moist - Neck Exam Neck Exam: Full ROM - Respiratory Exam Respiratory Exam: Decreased Breath Sounds - Cardiovascular Exam Cardiovascular Exam: REGULAR RHYTHM - GI/Abdominal Exam GI & Abdominal Exam: Normal Bowel Sounds - Rectal Exam Rectal Exam: Deferred - Extremities Exam Extremities Exam: Pedal Edema - Back Exam Back Exam: NORMAL INSPECTION - Neurological Exam Neurological Exam: Alert - Psychiatric Exam Psychiatric exam: Normal Affect - Skin Skin Exam: Normal Color Assessment and Plan (1) Acute on chronic combined systolic and diastolic congestive heart failure Assessment & Plan: will continue dialysis. recommend betablokcer therapy Status: Chronic (2) Chronic kidney disease, stage IV (severe) Assessment & Plan: on dialysis Status: Acute (3) Chronic atrial fibrillation Assessment & Plan: found to have a neck mass concerning for possible malignancy. may need surgical intervention. will not give oral anticoagulant therapy. Status: Chronic
[2018-06-17] MEDS: Levalbuterol 1.25 MG/3 ML Inhal Soln UD INH SCH ×3 (08:00→23:53)
--- NOTE | 2018-06-17 08:51 | CP.PCM.PN ---
Subjective - Date & Time of Evaluation Date of Evaluation: 06/17/18 Time of Evaluation: 08:52 - Subjective Subjective: very weak having difficulty swallowing very hoarse lost a lot of weight Objective - Vital Signs/Intake and Output Vital Signs (last 24 hours): Temp Pulse Resp BP Pulse Ox 98.5 F 72 18 130/87 96 06/17/18 07:58 06/17/18 07:58 06/17/18 07:58 06/17/18 07:58 06/17/18 07:58 - Medications Medications: Current Medications Alprazolam (Xanax) 0.5 mg PO BID PRN PRN Reason: Anxiety Calcium Acetate (Phoslo) 667 mg PO TID [facility] Last Admin: 06/16/18 17:13 Dose: 667 mg Carvedilol (Coreg) 25 mg PO Q12 [facility] Last Admin: 06/16/18 21:50 Dose: 25 mg Famotidine (Pepcid) 20 mg PO DAILY [facility] Last Admin: 06/16/18 10:02 Dose: 20 mg Heparin Sodium (Porcine) (Heparin) 5,000 units SC Q12 [facility]; Protocol Last Admin: 06/16/18 21:51 Dose: 5,000 units Home Med (Entecavir [Baraclude]) 0.5 mg PO Q48H [facility] Ceftriaxone Sodium 1 gm/ (Sodium Chloride) 100 mls @ 100 mls/hr IVPB DAILY [facility]; Protocol Last Admin: 06/16/18 17:11 Dose: 100 mls/hr Levalbuterol HCl (Xopenex) 1.25 mg INH RQ8 [facility] Last Admin: 06/17/18 08:00 Dose: 1.25 mg Promethazine HCl (Phenergan Syrup) 12.5 mg PO Q6 PRN PRN Reason: Cough Tacrolimus (Prograf Cap) 2 mg PO HS [facility] Last Admin: 06/16/18 21:52 Dose: 2 mg Zolpidem Tartrate (Ambien) 5 mg PO HS PRN PRN Reason: insomnia - Labs Labs: 06/14/18 04:35 06/14/18 04:35 PT 12.4 Seconds (9.8-13.1) 06/13/18 09:50 INR 1.1 06/13/18 09:50 APTT 33.6 Seconds (25.6-37.1) 06/14/18 04:35 - Constitutional Appears: Chronically Ill - Head Exam Head Exam: ATRAUMATIC, NORMAL INSPECTION, NORMOCEPHALIC - Eye Exam Eye Exam: EOMI, Normal appearance, PERRL Pupil Exam: NORMAL ACCOMODATION, PERRL - ENT Exam ENT Exam: Mucous Membranes Moist, Normal Exam - Neck Exam Neck Exam: Full ROM, Normal Inspection. absent: Lymphadenopathy - Respiratory Exam Respiratory Exam: Clear to Ausculation Bilateral, NORMAL BREATHING PATTERN - Cardiovascular Exam Cardiovascular Exam: REGULAR RHYTHM, +S1, +S2. absent: Murmur Additional comments: pacemaker in place - GI/Abdominal Exam GI & Abdominal Exam: Soft, Normal Bowel Sounds. absent: Tenderness - Rectal Exam Rectal Exam: NORMAL INSPECTION - Extremities Exam Extremities Exam: Full ROM, Normal Capillary Refill, Normal Inspection. absent: Joint Swelling, Pedal Edema - Back Exam Back Exam: NORMAL INSPECTION - Neurological Exam Neurological Exam: Abnormal Gait, Alert, Awake, CN II-XII Intact, Oriented x3 - Psychiatric Exam Psychiatric exam: Depressed - Skin Skin Exam: Dry, Intact, Normal Color, Warm Assessment and Plan - Assessment and Plan (Free Text) Assessment: acute on chronic renal failure cardiomyopathy head and neck tumor s/p liver transplant Plan: continue current rx await ent decision re-head and neck surgery swallowing eval
--- NOTE | 2018-06-17 09:54 | CP.PCM.PN ---
Subjective - Date & Time of Evaluation Date of Evaluation: 06/17/18 Time of Evaluation: 09:54 - Subjective Subjective: Complaint of hoarseness Vital signs noted to be stable Poor appetite Objective - Vital Signs/Intake and Output Vital Signs (last 24 hours): Temp Pulse Resp BP Pulse Ox 98.5 F 72 18 130/87 96 06/17/18 07:58 06/17/18 07:58 06/17/18 07:58 06/17/18 07:58 06/17/18 07:58 - Medications Medications: Current Medications Alprazolam (Xanax) 0.5 mg PO BID PRN PRN Reason: Anxiety Calcium Acetate (Phoslo) 667 mg PO TID [facility] Last Admin: 06/16/18 17:13 Dose: 667 mg Carvedilol (Coreg) 25 mg PO Q12 [facility] Last Admin: 06/16/18 21:50 Dose: 25 mg Famotidine (Pepcid) 20 mg PO DAILY [facility] Last Admin: 06/16/18 10:02 Dose: 20 mg Heparin Sodium (Porcine) (Heparin) 5,000 units SC Q12 [facility]; Protocol Last Admin: 06/16/18 21:51 Dose: 5,000 units Home Med (Entecavir [Baraclude]) 0.5 mg PO Q48H [facility] Ceftriaxone Sodium 1 gm/ (Sodium Chloride) 100 mls @ 100 mls/hr IVPB DAILY [facility]; Protocol Last Admin: 06/16/18 17:11 Dose: 100 mls/hr Levalbuterol HCl (Xopenex) 1.25 mg INH RQ8 [facility] Last Admin: 06/17/18 08:00 Dose: 1.25 mg Promethazine HCl (Phenergan Syrup) 12.5 mg PO Q6 PRN PRN Reason: Cough Tacrolimus (Prograf Cap) 2 mg PO HS [facility] Last Admin: 06/16/18 21:52 Dose: 2 mg Zolpidem Tartrate (Ambien) 5 mg PO HS PRN PRN Reason: insomnia - Labs Labs: 06/14/18 04:35 06/14/18 04:35 PT 12.4 Seconds (9.8-13.1) 06/13/18 09:50 INR 1.1 06/13/18 09:50 APTT 33.6 Seconds (25.6-37.1) 06/14/18 04:35 - Constitutional Appears: No Acute Distress - Eye Exam Eye Exam: Conjunctival injection - ENT Exam ENT Exam: Mucous Membranes Moist - Neck Exam Neck Exam: absent: Lymphadenopathy - Respiratory Exam Respiratory Exam: NORMAL BREATHING PATTERN. absent: Chest Wall Tenderness - Cardiovascular Exam Cardiovascular Exam: absent: Gallop, Rubs - GI/Abdominal Exam GI & Abdominal Exam: Soft, Normal Bowel Sounds - Extremities Exam Extremities Exam: absent: Calf Tenderness - Back Exam Back Exam: absent: CVA tenderness (L), CVA tenderness (R) - Neurological Exam Neurological Exam: Alert - Psychiatric Exam Psychiatric exam: Anxious - Skin Skin Exam: absent: Cyanosis Assessment and Plan (1) Chronic kidney disease, stage V Status: Acute (2) Acute on chronic systolic (congestive) heart failure Status: Acute (3) Generalized muscle weakness Status: Chronic (4) ASHD (arteriosclerotic heart disease) Status: Acute - Assessment and Plan (Free Text) Assessment: PIERRE/CKD stage 5/ hx of liver transplant/ h x of pPM/ chf/ head and neck tumor Recommendation Patient did have dialysis yesterday and no recent blood test since still pending for today We will reschedule hemodialysis for tomorrow Oncology on board for head neck tumor
--- NOTE | 2018-06-17 10:51 | CT ---
Date of service: 06/17/2018 PROCEDURE: CT OF THE TEMPORAL BONES WITHOUT CONTRAST HISTORY: mass left side neck area seen on ct of neck COMPARISON: None available. TECHNIQUE: High resolution axial images of the temporal bones were obtained. Coronal and sagittal reformats were generated. Radiation dose: Total exam DLP = 1035.5 mGy-cm. This CT exam was performed using one or more of the following dose reduction techniques: Automated exposure control, adjustment of the mA and/or kV according to patient size, and/or use of iterative reconstruction technique. FINDINGS: RIGHT TEMPORAL BONE: RIGHT MIDDLE EAR: Normal. RIGHT INNER EAR: Cochlea: Normal. Semicircular canals: Normal. RIGHT MASTOID AIR CELLS: Normal. RIGHT INTERNAL AUDITORY CANAL: Normal. RIGHT EXTERNAL AUDITORY CANAL: Normal. RIGHT VESTIBULAR AND COCHLEAR AQUEDUCT: Normal. OTHER FINDINGS: None. LEFT TEMPORAL BONE: Expansive pathology is appreciated throughout the left temporal bones diffusely affected by a destructive process. There is a mass disrupting bony anatomy at the left petrous ridge and inferiorly expanding the margins of the petrous bone anteriorly and posteriorly complete erosion noted posteriorly. Partial erosion is noted medially and involves the lateral wall of the left cavernous sinus diffusely. There is breakthrough likely into the left middle cranial fossa as well as inferior to the left temporal bone in the upper neck. The left internal auditory canal is obliterated as well as the scutum. However, the left ossicular chain appears intact although there is complete opacification of the left middle ear cavity. Diffuse mastoid effusions are seen at the left mastoid air cell complex. Further, the patient status post partial lateral left suboccipital craniectomy. Although the definition of anatomy is increased by this CT, differential diagnosis remains possible jugular glomus tumor or vagal glomus tumor with jugular foramen schwannoma metastasis a possibility. Squamous cell cancer less likely. OTHER FINDINGS: None. IMPRESSION: A lytic mass is reiterated destroying the majority of the left temporal bone as discussed above although the ossicular chain remains intact as well as the norris of the middle ear cavity and the mastoid air cell complex appears intact. Despite opacification of the middle ear cavity and all mastoid air cells, cholesteatoma is not favored. Differential diagnosis remains jugular or vagal glomus tumor, jugular foramen schwannoma, with metastasis is felt to be less likely. Further clinical correlation is advised. Further soft tissue characterization by MRI with and without contrast can be performed for added characterization (IAC with and without contrast). Retrieval of prior cross-sectional imaging of the brain/temporal bones is recommended given this patient's prior brain surgery in the past, for correlation. There is currently no prior comparison available at this time.
[2018-06-17 11:14] LABS: CALCIUM 8.9 mg/dL (8.4-10.2)
[2018-06-17] MEDS ORDERED: Sevelamer Carb 0.8 gm/Packet PO SCH (12:00)
--- NOTE | 2018-06-17 14:13 | CP.PCM.CON ---
History of Present Illness - History of Present Illness History of Present Illness: Palliative Care Consult Patient is a 62 year old man for came to the ED on 06/12 for evaluation of increased thick and bloody mucus in his throat/chest. He reports having difficulty swallowing, worsening weakness, rapid weight loss, and unable to take in solid food for weeks. He had a prior admission this past December 2017 but has not followed up with any providers since then. PMH: Liver transplant, cardiac arrhythmia, CHF, DVT, HTN, Hypercholesterolemia, Brain tumor, PE, CKD Soc hx: Lives alone, denies smoking, etoh, or drug use Fam hx: Unknown Review of Systems - Review of Systems Systems not reviewed;Unavailable: Other Review of Systems: unable to obtain, patient having difficult time bringing up mucus, states that he is also tired Past Patient History - Past Medical History & Family History Past Medical History?: Yes - Past Social History Smoking Status: Former Smoker - CARDIAC Hx Cardia Arrhythmia: Yes Hx Congestive Heart Failure: Yes Hx Hypercholesterolemia: Yes Hx Hypertension: Yes Hx Pacemaker: Yes - PULMONARY Hx Pulmonary Embolism: Yes - NEUROLOGICAL Hx Neurological Disorder: No - HEENT Hx Deafness: Yes (left ear) - RENAL Hx Chronic Kidney Disease: Yes - ENDOCRINE/METABOLIC Hx Endocrine Disorders: No Hx Adrenal Cancer: No - HEMATOLOGICAL/ONCOLOGICAL Hx Blood Transfusions: Yes Hx Blood Transfusion Reaction: No Hx Hepatitis B: Yes Other/Comment: dvt - INTEGUMENTARY Hx Dermatological Problems: No - MUSCULOSKELETAL/RHEUMATOLOGICAL Hx Falls: No - GASTROINTESTINAL Other/Comment: Hx liver transplant - GENITOURINARY/GYNECOLOGICAL Hx Genitourinary Disorders: No - PSYCHIATRIC Hx Substance Use: No - SURGICAL HISTORY Hx Liver Transplant: Yes (1998) Other/Comment: brain surgery 1984 - ANESTHESIA Hx Anesthesia: Yes Hx Anesthesia Reactions: No Meds Home Medications: Home Medication List Medication Instructions Recorded Confirmed Type Entecavir [Baraclude] 0.5 mg PO Q48H #10 06/17/18 Rx Allergies/Adverse Reactions: Allergies Allergy/AdvReac Type Severity Reaction Status Date / Time No Known Allergies Allergy Verified 06/12/18 15:15 - Medications Medications: Current Medications Alprazolam (Xanax) 0.5 mg PO BID PRN PRN Reason: Anxiety Calcium Acetate (Phoslo) 667 mg PO TID [facility] Last Admin: 06/17/18 12:43 Dose: Not Given Carvedilol (Coreg) 25 mg PO Q12 [facility] Last Admin: 06/17/18 12:43 Dose: 25 mg Famotidine (Pepcid) 20 mg PO DAILY [facility] Last Admin: 06/17/18 12:43 Dose: 20 mg Heparin Sodium (Porcine) (Heparin) 5,000 units SC Q12 [facility]; Protocol Last Admin: 06/17/18 12:44 Dose: 5,000 units Home Med (Entecavir [Baraclude]) 0.5 mg PO Q48H [facility] Ceftriaxone Sodium 1 gm/ (Sodium Chloride) 100 mls @ 100 mls/hr IVPB DAILY [facility]; Protocol Last Admin: 06/17/18 12:46 Dose: 100 mls/hr Levalbuterol HCl (Xopenex) 1.25 mg INH RQ8 [facility] Last Admin: 06/17/18 08:00 Dose: 1.25 mg Promethazine HCl (Phenergan Syrup) 12.5 mg PO Q6 PRN PRN Reason: Cough Tacrolimus (Prograf Cap) 2 mg PO HS [facility] Last Admin: 06/16/18 21:52 Dose: 2 mg Zolpidem Tartrate (Ambien) 5 mg PO HS PRN PRN Reason: insomnia Physical Exam - Constitutional Appears: No Acute Distress - Head Exam Head Exam: ATRAUMATIC, NORMAL INSPECTION, NORMOCEPHALIC - Eye Exam Eye Exam: Normal appearance - Respiratory Exam Respiratory Exam: Decreased Breath Sounds Additional comments: on 2L nc - Cardiovascular Exam Cardiovascular Exam: REGULAR RHYTHM - Extremities Exam Extremities exam: Positive for: pedal pulses present - Neurological Exam Neurological exam: Alert, Oriented x3 - Psychiatric Exam Psychiatric exam: Anxious - Skin Skin Exam: Dry, Pallor, Warm Results - Vital Signs Recent Vital Signs: Last Vital Signs Temp 97.4 F L 06/17/18 12:16 Pulse 70 06/17/18 12:16 Resp 18 06/17/18 12:16 BP 139/93 H 06/17/18 12:16 Pulse Ox 95 06/17/18 12:16 - Labs Result Diagrams: 06/14/18 04:35 06/17/18 09:45 Labs: Laboratory Results - last 24 hr 06/17/18 09:45 Sodium 137 Potassium 5.2 H Chloride 98 Carbon Dioxide 24 Anion Gap 20 BUN 81 H Creatinine 5.8 H Est GFR ( Amer) 12 Est GFR (Non-Af Amer) 10 Random Glucose 97 Calcium 8.9 Assessment & Plan - Assessment and Plan (Free Text) Assessment: Full Code, there is no advanced directive in the chart Palliative Performance Scale 40% I reviewed Medical records, diagnostic studies, and examined the patient in bed Examined patient in bed, patient having a difficult time bringing up mucus, no pain complaints Goals of Care: Will discuss with patient at a later time, patient unable to to participate in Goals of Care discussion at this time Code Status: will Discuss with patient at a later time, patient unable to participate in Code Status discussion at this time Impression Decrease Mobility Generalized Weakness Dysphagia Non productive cough Anxiety Needs Goals of Care Discussion Suggestion Assist with ADLs and repositioning PT/OT Follow up with swallow eval Continue Resp tx, Chest PT Continue Xanax prn Will continue Goals of Care discussion Palliative Care will remain on board as needed Time Spent with patient 50 min
--- NOTE | 2018-06-17 18:06 | CP.PCM.PN ---
Subjective - Date & Time of Evaluation Date of Evaluation: 06/17/18 Time of Evaluation: 18:06 - Subjective Subjective: PT WITH CONTINUED HOARSENESS. C/O 70LB WEIGHT LOSS OVER LAST YEAR. RECENTLY DECREASED APPETITE LEADING TO DECREASED PO INTAKE. Objective - Vital Signs/Intake and Output Vital Signs (last 24 hours): Temp Pulse Resp BP Pulse Ox 97.4 F L 70 20 118/76 98 06/17/18 15:31 06/17/18 15:31 06/17/18 15:31 06/17/18 15:31 06/17/18 15:31 - Medications Medications: Current Medications Alprazolam (Xanax) 0.5 mg PO BID PRN PRN Reason: Anxiety Calcium Acetate (Phoslo) 667 mg PO TID [facility] Last Admin: 06/17/18 16:46 Dose: Not Given Carvedilol (Coreg) 25 mg PO Q12 [facility] Last Admin: 06/17/18 12:43 Dose: 25 mg Famotidine (Pepcid) 20 mg PO DAILY [facility] Last Admin: 06/17/18 12:43 Dose: 20 mg Heparin Sodium (Porcine) (Heparin) 5,000 units SC Q12 [facility]; Protocol Last Admin: 06/17/18 12:44 Dose: 5,000 units Home Med (Entecavir [Baraclude]) 0.5 mg PO Q48H [facility] Ceftriaxone Sodium 1 gm/ (Sodium Chloride) 100 mls @ 100 mls/hr IVPB DAILY [facility]; Protocol Last Admin: 06/17/18 12:46 Dose: 100 mls/hr Levalbuterol HCl (Xopenex) 1.25 mg INH RQ8 [facility] Last Admin: 06/17/18 15:22 Dose: 1.25 mg Promethazine HCl (Phenergan Syrup) 12.5 mg PO Q6 PRN PRN Reason: Cough Tacrolimus (Prograf Cap) 2 mg PO HS [facility] Last Admin: 06/16/18 21:52 Dose: 2 mg Zolpidem Tartrate (Ambien) 5 mg PO HS PRN PRN Reason: insomnia - Labs Labs: 06/14/18 04:35 06/17/18 09:45 PT 12.4 Seconds (9.8-13.1) 06/13/18 09:50 INR 1.1 06/13/18 09:50 APTT 33.6 Seconds (25.6-37.1) 06/14/18 04:35 - Constitutional Appears: No Acute Distress - Head Exam Head Exam: ATRAUMATIC, NORMAL INSPECTION, NORMOCEPHALIC - Eye Exam Eye Exam: EOMI, Normal appearance, PERRL. absent: Conjunctival injection, Nystagmus, Periorbital swelling, Periorbital tenderness, Scleral icterus Pupil Exam: NORMAL ACCOMODATION, PERRL - ENT Exam ENT Exam: Mucous Membranes Dry. absent: Mucous Membranes Moist, Normal Exam, Normal External Ear Exam, Normal Oropharynx, TM's Normal Bilaterally - Neck Exam Neck Exam: Full ROM. absent: Lymphadenopathy, Meningismus, Normal Inspection, Tenderness, Thyromegaly - Respiratory Exam Respiratory Exam: Rhonchi, NORMAL BREATHING PATTERN. absent: Accessory Muscle Use, Chest Wall Tenderness, Decreased Breath Sounds, Clear to Ausculation Bilateral, Prolonged Expiratory Phase, Rales, Wheezes, Respiratory Distress, Stridor - Cardiovascular Exam Cardiovascular Exam: REGULAR RHYTHM, +S1, +S2, Murmur. absent: Bradycardia, Tachycardia, Clicks, Diastolic murmur, Gallop, Irregular Rhythm, JVD, RRR, Rubs, +S4 - GI/Abdominal Exam GI & Abdominal Exam: Soft, Normal Bowel Sounds. absent: Bruit, Distended, Firm, Guarding, Rigid, Tenderness, Diminished Bowel Sounds, Hernia, Hyperactive Bowel Sounds, Hypoactive Bowel Sounds, Organomegaly, Pulsatile Mass, Rebound, Mass - Rectal Exam Rectal Exam: Deferred - Extremities Exam Extremities Exam: Full ROM, Normal Capillary Refill, Pedal Edema - Back Exam Back Exam: NORMAL INSPECTION. absent: CVA tenderness (L), CVA tenderness (R), Full ROM, muscle spasm, paraspinal tenderness, rash noted, tenderness, vertebral tenderness - Neurological Exam Neurological Exam: Alert, Awake, Oriented x3 - Psychiatric Exam Psychiatric exam: Normal Affect, Normal Mood. absent: Agitated, Anxious, Depressed, Flat Affect, Homicidal Ideation, Manic, Suicidal Ideation - Skin Skin Exam: Dry, Intact, Normal Color, Warm. absent: Abrasion, Cyanosis, Diaphoretic, Erythema, Mottled, Pallor, Pallor, Petechiae, Rash, Urticaria, Vesicles Assessment and Plan (1) Hoarseness Status: Acute (2) Swelling, mass, or lump in head and neck Status: Acute (3) Weight loss, non-intentional Status: Acute (4) Acute on chronic systolic (congestive) heart failure Status: Acute (5) Chronic kidney disease, stage V Status: Acute (6) AV node dysfunction Status: Chronic (7) Enlarged RV (right ventricle) Status: Chronic (8) Liver transplant disorder Status: Chronic (9) S/P placement of cardiac pacemaker Status: Chronic (10) Chronic atrial fibrillation Status: Chronic - Assessment and Plan (Free Text) Plan: PT WILL NEED EVAL WITH ENT/SURGERY. HE APPEARS COMPENSATED FROM A HEART FAILURE STANDPOINT. I REVIEWED ALL THE RESULTS NOTED SINCE ADMISSION. WOULD NOT ANTICOAGULATE PT FOR AFIB GIVEN MASS. 45 MIN TOTAL CARE TIME.
[2018-06-18] MEDS: Levalbuterol 1.25 MG/3 ML Inhal Soln UD INH SCH ×2 (07:56→15:46)
--- NOTE | 2018-06-18 08:01 | CP.PCM.PN ---
Subjective - Date & Time of Evaluation Date of Evaluation: 06/18/18 Time of Evaluation: 08:05 - Subjective Subjective: STILL VERY WEAK APPETITE POOR UNABLE TO SWALLOW PILLS/MEALS DUE TO HEAD AND NECK TUMOR WITH COMPRESSION OF TISSUE DRY COUGH PERSISTS Objective - Vital Signs/Intake and Output Vital Signs (last 24 hours): Temp Pulse Resp BP Pulse Ox 97.5 F L 68 18 118/84 96 06/18/18 04:54 06/18/18 04:54 06/18/18 04:54 06/18/18 04:54 06/18/18 04:54 - Medications Medications: Current Medications Alprazolam (Xanax) 0.5 mg PO BID PRN PRN Reason: Anxiety Calcium Acetate (Phoslo) 667 mg PO TID [facility] Last Admin: 06/17/18 16:46 Dose: Not Given Carvedilol (Coreg) 25 mg PO Q12 [facility] Last Admin: 06/17/18 21:34 Dose: 25 mg Famotidine (Pepcid) 20 mg PO DAILY [facility] Last Admin: 06/17/18 12:43 Dose: 20 mg Heparin Sodium (Porcine) (Heparin) 5,000 units SC Q12 [facility]; Protocol Last Admin: 06/17/18 21:33 Dose: 5,000 units Home Med (Entecavir [Baraclude]) 0.5 mg PO Q48H [facility] Ceftriaxone Sodium 1 gm/ (Sodium Chloride) 100 mls @ 100 mls/hr IVPB DAILY [facility]; Protocol Last Admin: 06/17/18 12:46 Dose: 100 mls/hr Levalbuterol HCl (Xopenex) 1.25 mg INH RQ8 [facility] Last Admin: 06/18/18 07:56 Dose: 1.25 mg Promethazine HCl (Phenergan Syrup) 12.5 mg PO Q6 PRN PRN Reason: Cough Tacrolimus (Prograf Cap) 2 mg PO HS [facility] Last Admin: 06/17/18 21:34 Dose: 2 mg Zolpidem Tartrate (Ambien) 5 mg PO HS PRN PRN Reason: insomnia - Labs Labs: 06/14/18 04:35 06/17/18 09:45 PT 12.4 Seconds (9.8-13.1) 06/13/18 09:50 INR 1.1 06/13/18 09:50 APTT 33.6 Seconds (25.6-37.1) 06/14/18 04:35 - Constitutional Appears: Chronically Ill - Head Exam Head Exam: ATRAUMATIC, NORMAL INSPECTION, NORMOCEPHALIC - Eye Exam Eye Exam: EOMI, Normal appearance, PERRL Pupil Exam: NORMAL ACCOMODATION, PERRL - ENT Exam ENT Exam: Mucous Membranes Moist, Normal Exam - Neck Exam Neck Exam: Full ROM, Normal Inspection. absent: Lymphadenopathy - Respiratory Exam Respiratory Exam: Decreased Breath Sounds, Prolonged Expiratory Phase, Rales, NORMAL BREATHING PATTERN - Cardiovascular Exam Cardiovascular Exam: REGULAR RHYTHM, +S1, +S2. absent: Murmur - GI/Abdominal Exam GI & Abdominal Exam: Soft, Normal Bowel Sounds. absent: Tenderness - Rectal Exam Rectal Exam: NORMAL INSPECTION - Extremities Exam Extremities Exam: Full ROM, Normal Capillary Refill, Normal Inspection. 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
--- NOTE | 2018-06-18 11:31 | CP.PCM.PN ---
Subjective - Date & Time of Evaluation Date of Evaluation: 06/18/18 Time of Evaluation: 11:31 - Subjective Subjective: Patient sitting in bed awake although hoarse and cannot swallow Coughing intermittently Objective - Vital Signs/Intake and Output Vital Signs (last 24 hours): Temp Pulse Resp BP Pulse Ox 97.1 F L 70 18 119/81 95 06/18/18 08:12 06/18/18 09:54 06/18/18 08:12 06/18/18 09:54 06/18/18 08:12 - Medications Medications: Current Medications Alprazolam (Xanax) 0.5 mg PO BID PRN PRN Reason: Anxiety Calcium Acetate (Phoslo) 667 mg PO TID [facility] Last Admin: 06/18/18 09:57 Dose: 667 mg Carvedilol (Coreg) 25 mg PO Q12 [facility] Last Admin: 06/18/18 09:54 Dose: 25 mg Famotidine (Pepcid) 20 mg PO DAILY [facility] Last Admin: 06/18/18 09:56 Dose: 20 mg Heparin Sodium (Porcine) (Heparin) 5,000 units SC Q12 [facility]; Protocol Last Admin: 06/18/18 09:55 Dose: 5,000 units Home Med (Entecavir [Baraclude]) 0.5 mg PO Q48H [facility] Ceftriaxone Sodium 1 gm/ (Sodium Chloride) 100 mls @ 100 mls/hr IVPB DAILY [facility]; Protocol Last Admin: 06/18/18 09:57 Dose: 100 mls/hr Levalbuterol HCl (Xopenex) 1.25 mg INH RQ8 [facility] Last Admin: 06/18/18 07:56 Dose: 1.25 mg Promethazine HCl (Phenergan Syrup) 12.5 mg PO Q6 PRN PRN Reason: Cough Tacrolimus (Prograf Cap) 2 mg PO HS [facility] Last Admin: 06/17/18 21:34 Dose: 2 mg Zolpidem Tartrate (Ambien) 5 mg PO HS PRN PRN Reason: insomnia - Labs Labs: 06/14/18 04:35 06/17/18 09:45 PT 12.4 Seconds (9.8-13.1) 06/13/18 09:50 INR 1.1 06/13/18 09:50 APTT 33.6 Seconds (25.6-37.1) 06/14/18 04:35 - Constitutional Appears: No Acute Distress, Chronically Ill - Eye Exam Eye Exam: Conjunctival injection - ENT Exam ENT Exam: Mucous Membranes Dry - Respiratory Exam Respiratory Exam: NORMAL BREATHING PATTERN. absent: Chest Wall Tenderness - Cardiovascular Exam Cardiovascular Exam: absent: Gallop, JVD, Rubs - GI/Abdominal Exam GI & Abdominal Exam: Soft, Normal Bowel Sounds - Extremities Exam Extremities Exam: absent: Calf Tenderness - Back Exam Back Exam: absent: CVA tenderness (L), CVA tenderness (R) - Neurological Exam Neurological Exam: Awake - Psychiatric Exam Psychiatric exam: Normal Affect - Skin Skin Exam: absent: Cyanosis Assessment and Plan (1) Chronic kidney disease, stage V Assessment & Plan: ESRD hx of liver transplant/ chf/ head and neck tumor Previous history of brain tumor Chronic debility Difficulty swallowing Recommendation Continue hemodialysis 3 times a week TTS Dietary consultation for supplement if he cannot swallow some other mean has to be discussed Status: Acute (2) Acute on chronic systolic (congestive) heart failure Status: Acute (3) Generalized muscle weakness Status: Chronic (4) ASHD (arteriosclerotic heart disease) Status: Acute
--- NOTE | 2018-06-18 12:51 | CP.PCM.PN ---
Subjective - Date & Time of Evaluation Date of Evaluation: 06/18/18 Time of Evaluation: 12:49 - Subjective Subjective: I spoke to Dr. Roe at [facility] who agreed to see the patient as an outpatient. His number is [phone]. 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 Roe. I will give Dr. Roe the patients name and phone number as well. Objective - Vital Signs/Intake and Output Vital Signs (last 24 hours): Temp Pulse Resp BP Pulse Ox 97.1 F L 71 18 126/84 99 06/18/18 12:17 06/18/18 12:17 06/18/18 12:17 06/18/18 12:17 06/18/18 12:17 - Medications Medications: Current Medications Alprazolam (Xanax) 0.5 mg PO BID PRN PRN Reason: Anxiety Last Admin: 06/18/18 12:19 Dose: 0.5 mg Calcium Acetate (Phoslo) 667 mg PO TID [facility] Last Admin: 06/18/18 09:57 Dose: 667 mg Carvedilol (Coreg) 25 mg PO Q12 [facility] Last Admin: 06/18/18 09:54 Dose: 25 mg Famotidine (Pepcid) 20 mg PO DAILY [facility] Last Admin: 06/18/18 09:56 Dose: 20 mg Heparin Sodium (Porcine) (Heparin) 5,000 units SC Q12 [facility]; Protocol Last Admin: 06/18/18 09:55 Dose: 5,000 units Home Med (Entecavir [Baraclude]) 0.5 mg PO Q48H [facility] Ceftriaxone Sodium 1 gm/ (Sodium Chloride) 100 mls @ 100 mls/hr IVPB DAILY [facility]; Protocol Last Admin: 06/18/18 09:57 Dose: 100 mls/hr Levalbuterol HCl (Xopenex) 1.25 mg INH RQ8 [facility] Last Admin: 06/18/18 07:56 Dose: 1.25 mg Promethazine HCl (Phenergan Syrup) 12.5 mg PO Q6 PRN PRN Reason: Cough Tacrolimus (Prograf Cap) 2 mg PO HS [facility] Last Admin: 06/17/18 21:34 Dose: 2 mg Zolpidem Tartrate (Ambien) 5 mg PO HS PRN PRN Reason: insomnia - Labs Labs: 06/14/18 04:35 06/17/18 09:45 PT 12.4 Seconds (9.8-13.1) 06/13/18 09:50 INR 1.1 06/13/18 09:50 APTT 33.6 Seconds (25.6-37.1) 06/14/18 04:35
[2018-06-18] MEDS: ENTECAVIR 0.5 MG PO SCH (20:36)
--- NOTE | 2018-06-18 21:44 | CP.PCM.CON ---
History of Present Illness - History of Present Illness History of Present Illness: 62 yo male with tumor of head and neck referred due to inability to swallow solids. Has past h/o liver transplant and brain tumor. On hemodialysis. Had had diificulty swallowing over several weeks and has been losing weight. On hemodia lysis. Review of Systems - Constitutional Constitutional: absent: Chills - EENT Eyes: absent: Blurred Vision Ears: absent: Ear Pain Nose/Mouth/Throat: absent: Nasal Discharge - Cardiovascular Cardiovascular: absent: Chest Pain - Respiratory Respiratory: Cough - Gastrointestinal Gastrointestinal: As Per HPI - Genitourinary Genitourinary: absent: Change in Urinary Stream Past Patient History - Past Medical History & Family History Past Medical History?: Yes - Past Social History Smoking Status: Former Smoker - CARDIAC Hx Cardia Arrhythmia: Yes Hx Congestive Heart Failure: Yes Hx Hypercholesterolemia: Yes Hx Hypertension: Yes Hx Pacemaker: Yes - PULMONARY Hx Pulmonary Embolism: Yes - NEUROLOGICAL Hx Neurological Disorder: No - HEENT Hx Deafness: Yes (left ear) - RENAL Hx Chronic Kidney Disease: Yes - ENDOCRINE/METABOLIC Hx Endocrine Disorders: No Hx Adrenal Cancer: No - HEMATOLOGICAL/ONCOLOGICAL Hx Blood Transfusions: Yes Hx Blood Transfusion Reaction: No Hx Hepatitis B: Yes Other/Comment: dvt - INTEGUMENTARY Hx Dermatological Problems: No - MUSCULOSKELETAL/RHEUMATOLOGICAL Hx Falls: No - GASTROINTESTINAL Other/Comment: Hx liver transplant - GENITOURINARY/GYNECOLOGICAL Hx Genitourinary Disorders: No - PSYCHIATRIC Hx Substance Use: No - SURGICAL HISTORY Hx Liver Transplant: Yes (1998) Other/Comment: brain surgery 1984 - ANESTHESIA Hx Anesthesia: Yes Hx Anesthesia Reactions: No Meds Home Medications: Home Medication List Medication Instructions Recorded Confirmed Type Entecavir [Baraclude] 0.5 mg PO Q48H #10 06/17/18 Rx Allergies/Adverse Reactions: Allergies Allergy/AdvReac Type Severity Reaction Status Date / Time No Known Allergies Allergy Verified 06/12/18 15:15 - Medications Medications: Current Medications Alprazolam (Xanax) 0.5 mg PO BID PRN PRN Reason: Anxiety Last Admin: 06/18/18 12:19 Dose: 0.5 mg Calcium Acetate (Phoslo) 667 mg PO TID [facility] Last Admin: 06/18/18 16:52 Dose: Not Given Carvedilol (Coreg) 25 mg PO Q12 [facility] Last Admin: 06/18/18 20:35 Dose: 25 mg Famotidine (Pepcid) 20 mg PO DAILY [facility] Last Admin: 06/18/18 09:56 Dose: 20 mg Heparin Sodium (Porcine) (Heparin) 5,000 units SC Q12 [facility]; Protocol Last Admin: 06/18/18 20:36 Dose: 5,000 units Home Med (Entecavir [Baraclude]) 0.5 mg PO Q48H [facility] Last Admin: 06/18/18 20:36 Dose: 0.5 mg Ceftriaxone Sodium 1 gm/ (Sodium Chloride) 100 mls @ 100 mls/hr IVPB DAILY [facility]; Protocol Last Admin: 06/18/18 09:57 Dose: 100 mls/hr Levalbuterol HCl (Xopenex) 1.25 mg INH RQ8 [facility] Last Admin: 06/18/18 15:46 Dose: Not Given Promethazine HCl (Phenergan Syrup) 12.5 mg PO Q6 PRN PRN Reason: Cough Tacrolimus (Prograf Cap) 2 mg PO HS [facility] Last Admin: 06/18/18 21:12 Dose: 2 mg Zolpidem Tartrate (Ambien) 5 mg PO HS PRN PRN Reason: insomnia Physical Exam - Constitutional Appears: Cachectic - Head Exam Head Exam: NORMAL INSPECTION - Eye Exam Eye Exam: Normal appearance - ENT Exam ENT Exam: Mucous Membranes Moist - Neck Exam Neck exam: Positive for: Normal Inspection - Respiratory Exam Respiratory Exam: Clear to Auscultation Bilateral - Cardiovascular Exam Cardiovascular Exam: REGULAR RHYTHM, +S1, +S2 - GI/Abdominal Exam GI & Abdominal Exam: Normal Bowel Sounds, Soft. absent: Tenderness Results - Vital Signs Recent Vital Signs: Last Vital Signs Temp 97.2 F L 06/18/18 20:13 Pulse 70 06/18/18 20:35 Resp 20 06/18/18 20:13 BP 133/88 06/18/18 20:35 Pulse Ox 100 06/18/18 20:13 - Labs Result Diagrams: 06/14/18 04:35 06/17/18 09:45 Labs: Laboratory Results - last 24 hr 06/15/18 16:34 Hep Bs Antibody, Quant <5 L - Imaging and Cardiology CT scan - abdomen Status: Report reviewed by me Assessment & Plan (1) Swelling, mass, or lump in head and neck Assessment and Plan: Discussed gastrostomy with patient including that a gastrostomy doesn't preclude oral intake. He is unsure at this time if he wants a gastrostomy. Will review films with radiology to determine if PEG is a safe option in this patient. Status: Acute
[2018-06-19] MEDS: Levalbuterol 1.25 MG/3 ML Inhal Soln UD INH SCH ×4 (00:30→23:44)
--- NOTE | 2018-06-19 09:17 | CP.PCM.PN ---
Subjective - Date & Time of Evaluation Date of Evaluation: 06/19/18 Time of Evaluation: 09:25 - Subjective Subjective: STILL UNABLE TO SWALLOW APPETITE POOR [employer]HECTIC Objective - Vital Signs/Intake and Output Vital Signs (last 24 hours): Temp Pulse Resp BP Pulse Ox 97.4 F L 70 18 110/83 99 06/19/18 08:08 06/19/18 08:08 06/19/18 08:08 06/19/18 08:08 06/19/18 08:08 - Medications Medications: Current Medications Alprazolam (Xanax) 0.5 mg PO BID PRN PRN Reason: Anxiety Last Admin: 06/18/18 12:19 Dose: 0.5 mg Calcium Acetate (Phoslo) 667 mg PO TID [facility] Last Admin: 06/18/18 16:52 Dose: Not Given Carvedilol (Coreg) 25 mg PO Q12 [facility] Last Admin: 06/18/18 20:35 Dose: 25 mg Famotidine (Pepcid) 20 mg PO DAILY [facility] Last Admin: 06/18/18 09:56 Dose: 20 mg Heparin Sodium (Porcine) (Heparin) 5,000 units SC Q12 [facility]; Protocol Last Admin: 06/18/18 20:36 Dose: 5,000 units Home Med (Entecavir [Baraclude]) 0.5 mg PO Q48H [facility] Last Admin: 06/18/18 20:36 Dose: 0.5 mg Ceftriaxone Sodium 1 gm/ (Sodium Chloride) 100 mls @ 100 mls/hr IVPB DAILY [facility]; Protocol Last Admin: 06/18/18 09:57 Dose: 100 mls/hr Levalbuterol HCl (Xopenex) 1.25 mg INH RQ8 [facility] Last Admin: 06/19/18 07:23 Dose: 1.25 mg Promethazine HCl (Phenergan Syrup) 12.5 mg PO Q6 PRN PRN Reason: Cough Tacrolimus (Prograf Cap) 2 mg PO HS [facility] Last Admin: 06/18/18 21:12 Dose: 2 mg Zolpidem Tartrate (Ambien) 5 mg PO HS PRN PRN Reason: insomnia - Labs Labs: 06/14/18 04:35 06/17/18 09:45 PT 12.4 Seconds (9.8-13.1) 06/13/18 09:50 INR 1.1 06/13/18 09:50 APTT 33.6 Seconds (25.6-37.1) 06/14/18 04:35 - Constitutional Appears: Chronically Ill - Head Exam Head Exam: ATRAUMATIC, NORMAL INSPECTION, NORMOCEPHALIC - Eye Exam Eye Exam: EOMI, Normal appearance, PERRL Pupil Exam: NORMAL ACCOMODATION, PERRL - ENT Exam ENT Exam: Mucous Membranes Moist, Normal Exam - Neck Exam Neck Exam: Full ROM, Normal Inspection. absent: Lymphadenopathy - Respiratory Exam Respiratory Exam: Rales, NORMAL BREATHING PATTERN - Cardiovascular Exam Cardiovascular Exam: REGULAR RHYTHM, +S1, +S2. absent: Murmur - GI/Abdominal Exam GI & Abdominal Exam: Soft, Normal Bowel Sounds. absent: Tenderness - Rectal Exam Rectal Exam: NORMAL INSPECTION - Extremities Exam Extremities Exam: Full ROM, Normal Capillary Refill, Normal Inspection. 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
--- NOTE | 2018-06-19 10:46 | CP.PCM.CON ---
Past Patient History - Past Medical History & Family History Past Medical History?: Yes - Past Social History Smoking Status: Former Smoker - CARDIAC Hx Cardia Arrhythmia: Yes Hx Congestive Heart Failure: Yes Hx Hypercholesterolemia: Yes Hx Hypertension: Yes Hx Pacemaker: Yes - PULMONARY Hx Pulmonary Embolism: Yes - NEUROLOGICAL Hx Neurological Disorder: No - HEENT Hx Deafness: Yes (left ear) - RENAL Hx Chronic Kidney Disease: Yes - ENDOCRINE/METABOLIC Hx Endocrine Disorders: No Hx Adrenal Cancer: No - HEMATOLOGICAL/ONCOLOGICAL Hx Blood Transfusions: Yes Hx Blood Transfusion Reaction: No Hx Hepatitis B: Yes Other/Comment: dvt - INTEGUMENTARY Hx Dermatological Problems: No - MUSCULOSKELETAL/RHEUMATOLOGICAL Hx Falls: No - GASTROINTESTINAL Other/Comment: Hx liver transplant - GENITOURINARY/GYNECOLOGICAL Hx Genitourinary Disorders: No - PSYCHIATRIC Hx Substance Use: No - SURGICAL HISTORY Hx Liver Transplant: Yes (1998) Other/Comment: brain surgery 1984 - ANESTHESIA Hx Anesthesia: Yes Hx Anesthesia Reactions: No Meds Home Medications: Home Medication List Medication Instructions Recorded Confirmed Type Entecavir [Baraclude] 0.5 mg PO Q48H #10 06/17/18 Rx Allergies/Adverse Reactions: Allergies Allergy/AdvReac Type Severity Reaction Status Date / Time No Known Allergies Allergy Verified 06/12/18 15:15 - Medications Medications: Current Medications Alprazolam (Xanax) 0.5 mg PO BID PRN PRN Reason: Anxiety Last Admin: 06/18/18 12:19 Dose: 0.5 mg Calcium Acetate (Phoslo) 667 mg PO TID [facility] Last Admin: 06/18/18 16:52 Dose: Not Given Carvedilol (Coreg) 25 mg PO Q12 [facility] Last Admin: 06/18/18 20:35 Dose: 25 mg Famotidine (Pepcid) 20 mg PO DAILY [facility] Last Admin: 06/18/18 09:56 Dose: 20 mg Heparin Sodium (Porcine) (Heparin) 5,000 units SC Q12 [facility]; Protocol Last Admin: 06/18/18 20:36 Dose: 5,000 units Home Med (Entecavir [Baraclude]) 0.5 mg PO Q48H [facility] Last Admin: 06/18/18 20:36 Dose: 0.5 mg Ceftriaxone Sodium 1 gm/ (Sodium Chloride) 100 mls @ 100 mls/hr IVPB DAILY [facility]; Protocol Last Admin: 06/18/18 09:57 Dose: 100 mls/hr Levalbuterol HCl (Xopenex) 1.25 mg INH RQ8 [facility] Last Admin: 06/19/18 07:23 Dose: 1.25 mg Promethazine HCl (Phenergan Syrup) 12.5 mg PO Q6 PRN PRN Reason: Cough Tacrolimus (Prograf Cap) 2 mg PO HS [facility] Last Admin: 06/18/18 21:12 Dose: 2 mg Zolpidem Tartrate (Ambien) 5 mg PO HS PRN PRN Reason: insomnia Results - Vital Signs Recent Vital Signs: Last Vital Signs Temp 97.4 F L 06/19/18 08:08 Pulse 70 06/19/18 08:08 Resp 18 06/19/18 08:08 BP 110/83 06/19/18 08:08 Pulse Ox 99 06/19/18 08:08 - Labs Result Diagrams: 06/14/18 04:35 06/17/18 09:45
--- NOTE | 2018-06-19 11:15 | CP.PCM.PN ---
Subjective - Date & Time of Evaluation Date of Evaluation: 06/19/18 Time of Evaluation: 11:13 - Subjective Subjective: Patient alert conscious Vital signs stable No clinical changes from yesterday with difficulty swallowing and some coughing Chronically ill Objective - Vital Signs/Intake and Output Vital Signs (last 24 hours): Temp Pulse Resp BP Pulse Ox 97.4 F L 70 18 110/83 99 06/19/18 08:08 06/19/18 08:08 06/19/18 08:08 06/19/18 08:08 06/19/18 08:08 - Medications Medications: Current Medications Alprazolam (Xanax) 0.5 mg PO BID PRN PRN Reason: Anxiety Last Admin: 06/18/18 12:19 Dose: 0.5 mg Calcium Acetate (Phoslo) 667 mg PO TID [facility] Last Admin: 06/18/18 16:52 Dose: Not Given Carvedilol (Coreg) 25 mg PO Q12 [facility] Last Admin: 06/18/18 20:35 Dose: 25 mg Famotidine (Pepcid) 20 mg PO DAILY [facility] Last Admin: 06/18/18 09:56 Dose: 20 mg Heparin Sodium (Porcine) (Heparin) 5,000 units SC Q12 [facility]; Protocol Last Admin: 06/18/18 20:36 Dose: 5,000 units Home Med (Entecavir [Baraclude]) 0.5 mg PO Q48H [facility] Last Admin: 06/18/18 20:36 Dose: 0.5 mg Ceftriaxone Sodium 1 gm/ (Sodium Chloride) 100 mls @ 100 mls/hr IVPB DAILY [facility]; Protocol Last Admin: 06/18/18 09:57 Dose: 100 mls/hr Levalbuterol HCl (Xopenex) 1.25 mg INH RQ8 [facility] Last Admin: 06/19/18 07:23 Dose: 1.25 mg Promethazine HCl (Phenergan Syrup) 12.5 mg PO Q6 PRN PRN Reason: Cough Tacrolimus (Prograf Cap) 2 mg PO HS [facility] Last Admin: 06/18/18 21:12 Dose: 2 mg Zolpidem Tartrate (Ambien) 5 mg PO HS PRN PRN Reason: insomnia - Labs Labs: 06/14/18 04:35 06/17/18 09:45 PT 12.4 Seconds (9.8-13.1) 06/13/18 09:50 INR 1.1 06/13/18 09:50 APTT 33.6 Seconds (25.6-37.1) 06/14/18 04:35 - Constitutional Appears: No Acute Distress - Eye Exam Eye Exam: Conjunctival injection - ENT Exam ENT Exam: Mucous Membranes Dry - Respiratory Exam Respiratory Exam: NORMAL BREATHING PATTERN. absent: Chest Wall Tenderness, Rhonchi - Cardiovascular Exam Cardiovascular Exam: absent: Gallop, JVD, Rubs - GI/Abdominal Exam GI & Abdominal Exam: Soft, Normal Bowel Sounds - Extremities Exam Extremities Exam: absent: Calf Tenderness - Back Exam Back Exam: absent: CVA tenderness (L), CVA tenderness (R) - Neurological Exam Neurological Exam: Alert - Psychiatric Exam Psychiatric exam: Normal Affect - Skin Skin Exam: absent: Cyanosis Assessment and Plan (1) Chronic kidney disease, stage V Assessment & Plan: ESRD hx of liver transplant/ chf/ head and neck tumor Previous history of brain tumor Chronic debility Difficulty swallowing Recommendation Continue hemodialysis 3 times a week TTS Dietary consultation for supplement if he cannot swallow some other mean has to be discussed Status: Acute (2) Acute on chronic systolic (congestive) heart failure Status: Acute (3) Generalized muscle weakness Status: Chronic (4) ASHD (arteriosclerotic heart disease) Status: Acute
--- NOTE | 2018-06-19 12:32 | CP.PCM.CON ---
History of Present Illness - History of Present Illness History of Present Illness: 62 year old male with a history of Hep B cirrhosis s/p liver transplant on immunsuppresion ~ 10 years ago ([facility]), brain tumor s/p resection ~ 20 years ago ([place]), CKD on HD, CHF with PPM, admitted with failure to thrive, with radiographic locally destructive globus tumor. The patient notes to 125 ound weightloss due to diminished appetite, trouble swallowing and hoarseness of voice for about 2-3 months. ENT evaluation revealed left sided vocal cord paralysis. 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 Multiple treatment modalities have been offered to the patient, including transfer to a tertiary center, and patient wishing to think about his options. Past medical history: Hep B cirrhosis s/p liver transplant on immunsuppresion ~ 10 years ago ([facility]), brain tumor s/p resection ~ 20 years ago ([place]), CKD on HD, CHF with PPM Past surgical history: Hep B cirrhosis s/p liver transplant on immunsuppresion ~ 10 years ago ([facility]), brain tumor s/p resection ~ 20 years ago ([place]), PPM Family history: Denies hematologic and oncologic problems Social history: Denies tobacco, alcohol, and illicit drug use. Allergies: NKA Review of systems: All remaining review of systems including HEENT, cardiovascular, respiratory, gastrointestinal, genitourinary, musculoskeletal, dermatologic, neurologic, and psychiatric are negative unless mentioned in the HPI. Past Patient History - Past Medical History & Family History Past Medical History?: Yes - Past Social History Smoking Status: Former Smoker - CARDIAC Hx Cardia Arrhythmia: Yes Hx Congestive Heart Failure: Yes Hx Hypercholesterolemia: Yes Hx Hypertension: Yes Hx Pacemaker: Yes - PULMONARY Hx Pulmonary Embolism: Yes - NEUROLOGICAL Hx Neurological Disorder: No - HEENT Hx Deafness: Yes (left ear) - RENAL Hx Chronic Kidney Disease: Yes - ENDOCRINE/METABOLIC Hx Endocrine Disorders: No Hx Adrenal Cancer: No - HEMATOLOGICAL/ONCOLOGICAL Hx Blood Transfusions: Yes Hx Blood Transfusion Reaction: No Hx Hepatitis B: Yes Other/Comment: dvt - INTEGUMENTARY Hx Dermatological Problems: No - MUSCULOSKELETAL/RHEUMATOLOGICAL Hx Falls: No - GASTROINTESTINAL Other/Comment: Hx liver transplant - GENITOURINARY/GYNECOLOGICAL Hx Genitourinary Disorders: No - PSYCHIATRIC Hx Substance Use: No - SURGICAL HISTORY Hx Liver Transplant: Yes (1998) Other/Comment: brain surgery 1985 - ANESTHESIA Hx Anesthesia: Yes Hx Anesthesia Reactions: No Meds Home Medications: Home Medication List Medication Instructions Recorded Confirmed Type Entecavir [Baraclude] 0.5 mg PO Q48H #10 06/17/18 Rx Allergies/Adverse Reactions: Allergies Allergy/AdvReac Type Severity Reaction Status Date / Time No Known Allergies Allergy Verified 06/12/18 15:15 - Medications Medications: Current Medications Alprazolam (Xanax) 0.5 mg PO BID PRN PRN Reason: Anxiety Last Admin: 06/19/18 11:57 Dose: 0.5 mg Calcium Acetate (Phoslo) 667 mg PO TID [facility] Last Admin: 06/19/18 12:01 Dose: 667 mg Carvedilol (Coreg) 25 mg PO Q12 [facility] Last Admin: 06/19/18 12:01 Dose: 25 mg Famotidine (Pepcid) 20 mg PO DAILY [facility] Last Admin: 06/19/18 12:00 Dose: 20 mg Heparin Sodium (Porcine) (Heparin) 5,000 units SC Q12 [facility]; Protocol Last Admin: 06/19/18 12:02 Dose: 5,000 units Home Med (Entecavir [Baraclude]) 0.5 mg PO Q48H [facility] Last Admin: 06/18/18 20:36 Dose: 0.5 mg Ceftriaxone Sodium 1 gm/ (Sodium Chloride) 100 mls @ 100 mls/hr IVPB DAILY [facility]; Protocol Last Admin: 06/19/18 12:02 Dose: 100 mls/hr Levalbuterol HCl (Xopenex) 1.25 mg INH RQ8 [facility] Last Admin: 06/19/18 07:23 Dose: 1.25 mg Promethazine HCl (Phenergan Syrup) 12.5 mg PO Q6 PRN PRN Reason: Cough Tacrolimus (Prograf Cap) 2 mg PO HS [facility] Last Admin: 06/18/18 21:12 Dose: 2 mg Zolpidem Tartrate (Ambien) 5 mg PO HS PRN PRN Reason: insomnia Physical Exam - Head Exam Head Exam: ATRAUMATIC - Eye Exam Eye Exam: Normal appearance - ENT Exam ENT Exam: Mucous Membranes Dry - Respiratory Exam Respiratory Exam: NORMAL BREATHING PATTERN - Cardiovascular Exam Cardiovascular Exam: +S1, +S2 - GI/Abdominal Exam GI & Abdominal Exam: Normal Bowel Sounds - Extremities Exam Extremities exam: Positive for: normal inspection - Neurological Exam Neurological exam: Oriented x3 - Psychiatric Exam Psychiatric exam: Normal Affect, Normal Mood - Skin Skin Exam: Warm Results - Vital Signs Recent Vital Signs: Last Vital Signs Temp 97.3 F L 06/19/18 11:59 Pulse 70 06/19/18 12:01 Resp 18 06/19/18 11:59 BP 110/83 06/19/18 12:01 Pulse Ox 98 06/19/18 11:59 - Labs Result Diagrams: 06/14/18 04:35 06/17/18 09:45 Assessment & Plan (1) Glomus tumor Assessment and Plan: extensive tumor with mass effect on cerebellum recommend resectability determination at tertiary center; pt offered transfer to [facility] in [place], pt asked if transfer to [facility] would be an option I discussed we can call and arrange transfer to the facility of the patients choice, feeding tube, and also hospice; he wants to think about his options before committing Status: Acute (2) Anemia Assessment and Plan: likely anemia of CKD retic count, b12, folate, ferritin, FOBT to further characterize Status: Acute (3) Thrombocytopenia Assessment and Plan: mild cont. to monitor hold heparin if plt < 50,000 and rule out HIT Thank you for this interesting consult. Status: Acute
--- NOTE | 2018-06-19 16:05 | CP.PCM.PN ---
Subjective - Date & Time of Evaluation Date of Evaluation: 06/19/18 Time of Evaluation: 16:00 - Subjective Subjective: Patient states he is trying to improve his eating. Objective - Vital Signs/Intake and Output Vital Signs (last 24 hours): Temp Pulse Resp BP Pulse Ox 97.4 F L 70 18 114/76 94 L 06/19/18 15:50 06/19/18 15:50 06/19/18 15:50 06/19/18 15:50 06/19/18 15:50 - Medications Medications: Current Medications Alprazolam (Xanax) 0.5 mg PO BID PRN PRN Reason: Anxiety Last Admin: 06/19/18 11:57 Dose: 0.5 mg Calcium Acetate (Phoslo) 667 mg PO TID [facility] Last Admin: 06/19/18 12:01 Dose: 667 mg Carvedilol (Coreg) 25 mg PO Q12 [facility] Last Admin: 06/19/18 12:01 Dose: 25 mg Famotidine (Pepcid) 20 mg PO DAILY [facility] Last Admin: 06/19/18 12:00 Dose: 20 mg Heparin Sodium (Porcine) (Heparin) 5,000 units SC Q12 [facility]; Protocol Last Admin: 06/19/18 12:02 Dose: 5,000 units Home Med (Entecavir [Baraclude]) 0.5 mg PO Q48H [facility] Last Admin: 06/18/18 20:36 Dose: 0.5 mg Ceftriaxone Sodium 1 gm/ (Sodium Chloride) 100 mls @ 100 mls/hr IVPB DAILY [facility]; Protocol Last Admin: 06/19/18 12:02 Dose: 100 mls/hr Levalbuterol HCl (Xopenex) 1.25 mg INH RQ8 [facility] Last Admin: 06/19/18 15:38 Dose: 1.25 mg Promethazine HCl (Phenergan Syrup) 12.5 mg PO Q6 PRN PRN Reason: Cough Tacrolimus (Prograf Cap) 2 mg PO HS [facility] Last Admin: 06/18/18 21:12 Dose: 2 mg Zolpidem Tartrate (Ambien) 5 mg PO HS PRN PRN Reason: insomnia - Labs Labs: 06/14/18 04:35 06/17/18 09:45 PT 12.4 Seconds (9.8-13.1) 06/13/18 09:50 INR 1.1 06/13/18 09:50 APTT 33.6 Seconds (25.6-37.1) 06/14/18 04:35 - Head Exam Head Exam: ATRAUMATIC - Eye Exam Eye Exam: Normal appearance - ENT Exam ENT Exam: Normal Exam - Neck Exam Neck Exam: Full ROM - Respiratory Exam Respiratory Exam: Clear to Ausculation Bilateral - Cardiovascular Exam Cardiovascular Exam: REGULAR RHYTHM, +S1, +S2 - GI/Abdominal Exam GI & Abdominal Exam: Soft, Normal Bowel Sounds. absent: Tenderness Assessment and Plan (1) Swelling, mass, or lump in head and neck Assessment & Plan: Patient still not yet ready for PEG. Reconsult with me if patient agreeable for PEG. Status: Acute
--- NOTE | 2018-06-19 16:12 | CP.PCM.PN ---
Subjective - Date & Time of Evaluation Date of Evaluation: 06/19/18 Time of Evaluation: 16:10 - Subjective Subjective: no complaints. Objective - Vital Signs/Intake and Output Vital Signs (last 24 hours): Temp Pulse Resp BP Pulse Ox 97.4 F L 70 18 114/76 94 L 06/19/18 15:50 06/19/18 15:50 06/19/18 15:50 06/19/18 15:50 06/19/18 15:50 - Medications Medications: Current Medications Alprazolam (Xanax) 0.5 mg PO BID PRN PRN Reason: Anxiety Last Admin: 06/19/18 11:57 Dose: 0.5 mg Calcium Acetate (Phoslo) 667 mg PO TID [facility] Last Admin: 06/19/18 12:01 Dose: 667 mg Carvedilol (Coreg) 25 mg PO Q12 [facility] Last Admin: 06/19/18 12:01 Dose: 25 mg Famotidine (Pepcid) 20 mg PO DAILY [facility] Last Admin: 06/19/18 12:00 Dose: 20 mg Heparin Sodium (Porcine) (Heparin) 5,000 units SC Q12 [facility]; Protocol Last Admin: 06/19/18 12:02 Dose: 5,000 units Home Med (Entecavir [Baraclude]) 0.5 mg PO Q48H [facility] Last Admin: 06/18/18 20:36 Dose: 0.5 mg Ceftriaxone Sodium 1 gm/ (Sodium Chloride) 100 mls @ 100 mls/hr IVPB DAILY [facility]; Protocol Last Admin: 06/19/18 12:02 Dose: 100 mls/hr Levalbuterol HCl (Xopenex) 1.25 mg INH RQ8 [facility] Last Admin: 06/19/18 15:38 Dose: 1.25 mg Promethazine HCl (Phenergan Syrup) 12.5 mg PO Q6 PRN PRN Reason: Cough Tacrolimus (Prograf Cap) 2 mg PO HS [facility] Last Admin: 06/18/18 21:12 Dose: 2 mg Zolpidem Tartrate (Ambien) 5 mg PO HS PRN PRN Reason: insomnia - Labs Labs: 06/14/18 04:35 06/17/18 09:45 PT 12.4 Seconds (9.8-13.1) 06/13/18 09:50 INR 1.1 06/13/18 09:50 APTT 33.6 Seconds (25.6-37.1) 06/14/18 04:35 - Constitutional Appears: Non-toxic - Head Exam Head Exam: ATRAUMATIC, NORMAL INSPECTION, NORMOCEPHALIC - Eye Exam Eye Exam: EOMI, Normal appearance, PERRL. absent: Conjunctival injection, Nystagmus, Periorbital swelling, Periorbital tenderness, Scleral icterus Pupil Exam: NORMAL ACCOMODATION, PERRL - ENT Exam ENT Exam: Mucous Membranes Moist, Normal Exam. absent: Mucous Membranes Dry, Normal External Ear Exam, Normal Oropharynx, TM's Normal Bilaterally - Neck Exam Neck Exam: Full ROM, Normal Inspection - Respiratory Exam Respiratory Exam: Clear to Ausculation Bilateral, NORMAL BREATHING PATTERN. absent: Accessory Muscle Use, Chest Wall Tenderness, Decreased Breath Sounds, Prolonged Expiratory Phase, Rales, Rhonchi, Wheezes, Respiratory Distress, Stridor - Cardiovascular Exam Cardiovascular Exam: REGULAR RHYTHM, +S1, +S2, Murmur. absent: Bradycardia, Tachycardia, Clicks, Diastolic murmur, Gallop, Irregular Rhythm, JVD, RRR, Rubs, +S4 - GI/Abdominal Exam GI & Abdominal Exam: Soft, Normal Bowel Sounds. absent: Bruit, Distended, Firm, Guarding, Rigid, Tenderness, Diminished Bowel Sounds, Hernia, Hyperactive Bowel Sounds, Hypoactive Bowel Sounds, Organomegaly, Pulsatile Mass, Rebound, Mass - Rectal Exam Rectal Exam: Deferred - Extremities Exam Extremities Exam: Full ROM, Normal Capillary Refill, Pedal Edema. absent: Calf Tenderness, Joint Swelling, Normal Inspection, Tenderness - Back Exam Back Exam: NORMAL INSPECTION. absent: CVA tenderness (L), CVA tenderness (R), Full ROM, muscle spasm, paraspinal tenderness, rash noted, tenderness, vertebral tenderness - Neurological Exam Neurological Exam: Alert, Awake, Normal Gait, Oriented x3. absent: Abnormal Gait, Altered, Motor Sensory Deficit, Reflexes Normal - Psychiatric Exam Psychiatric exam: Normal Affect, Normal Mood - Skin Skin Exam: Dry, Intact, Normal Color, Warm Assessment and Plan (1) Hoarseness Status: Acute (2) Swelling, mass, or lump in head and neck Status: Acute (3) Weight loss, non-intentional Status: Acute (4) Acute on chronic systolic (congestive) heart failure Status: Acute (5) Chronic kidney disease, stage V Status: Acute (6) AV node dysfunction Status: Chronic (7) Enlarged RV (right ventricle) Status: Chronic (8) Liver transplant disorder Status: Chronic (9) S/P placement of cardiac pacemaker Status: Chronic (10) Chronic atrial fibrillation Status: Chronic - Assessment and Plan (Free Text) Plan: pt is awaiting transfer to [facility] for further eval and treatment. Pt is stable cardiac hooker for transfer. continue current cardiac meds.
[2018-06-19] MEDS ORDERED: Oxycodone/Acetaminophen 5/325 mg Tab PO PRN (22:47)
[2018-06-20] MEDS: Levalbuterol 1.25 MG/3 ML Inhal Soln UD INH SCH ×3 (08:02→23:33)
--- NOTE | 2018-06-20 08:40 | CP.PCM.PN ---
Subjective - Date & Time of Evaluation Date of Evaluation: 06/20/18 Time of Evaluation: 08:43 - Subjective Subjective: STILL DECIDING ON WHICH HOSPITAL TO GO TO FOR FURTHER RX UNABLE TO SWALLOW SOB SLIGHTLY IMPROVED STILL HOARSE Objective - Vital Signs/Intake and Output Vital Signs (last 24 hours): Temp Pulse Resp BP Pulse Ox 97.5 F L 70 20 127/84 96 06/20/18 07:52 06/20/18 07:52 06/20/18 07:52 06/20/18 07:52 06/20/18 07:52 - Medications Medications: Current Medications Alprazolam (Xanax) 0.5 mg PO BID PRN PRN Reason: Anxiety Last Admin: 06/19/18 11:57 Dose: 0.5 mg Calcium Acetate (Phoslo) 667 mg PO TID [facility] Last Admin: 06/19/18 18:25 Dose: 667 mg Carvedilol (Coreg) 25 mg PO Q12 [facility] Last Admin: 06/19/18 21:50 Dose: 25 mg Famotidine (Pepcid) 20 mg PO DAILY [facility] Last Admin: 06/19/18 12:00 Dose: 20 mg Heparin Sodium (Porcine) (Heparin) 5,000 units SC Q12 [facility]; Protocol Last Admin: 06/19/18 21:50 Dose: 5,000 units Home Med (Entecavir [Baraclude]) 0.5 mg PO Q48H [facility] Last Admin: 06/18/18 20:36 Dose: 0.5 mg Ceftriaxone Sodium 1 gm/ (Sodium Chloride) 100 mls @ 100 mls/hr IVPB DAILY [facility]; Protocol Last Admin: 06/19/18 12:02 Dose: 100 mls/hr Levalbuterol HCl (Xopenex) 1.25 mg INH RQ8 [facility] Last Admin: 06/20/18 08:02 Dose: 1.25 mg Oxycodone/Acetaminophen (Percocet 5/325 Mg Tab) 1 tab PO Q4 PRN PRN Reason: Pain, moderate (4-7) Stop: 06/22/18 22:48 Last Admin: 06/19/18 22:59 Dose: 1 tab Promethazine HCl (Phenergan Syrup) 12.5 mg PO Q6 PRN PRN Reason: Cough Tacrolimus (Prograf Cap) 2 mg PO HS [facility] Last Admin: 06/19/18 21:49 Dose: 2 mg Zolpidem Tartrate (Ambien) 5 mg PO HS PRN PRN Reason: insomnia - Labs Labs: 06/14/18 04:35 06/17/18 09:45 PT 12.4 Seconds (9.8-13.1) 06/13/18 09:50 INR 1.1 06/13/18 09:50 APTT 33.6 Seconds (25.6-37.1) 06/14/18 04:35 - Constitutional Appears: Chronically Ill - Head Exam Head Exam: ATRAUMATIC, NORMAL INSPECTION, NORMOCEPHALIC - Eye Exam Eye Exam: EOMI, Normal appearance, PERRL Pupil Exam: NORMAL ACCOMODATION, PERRL - ENT Exam ENT Exam: Mucous Membranes Moist, Normal Exam - Neck Exam Neck Exam: Full ROM, Normal Inspection. absent: Lymphadenopathy - Respiratory Exam Respiratory Exam: Clear to Ausculation Bilateral, NORMAL BREATHING PATTERN - Cardiovascular Exam Cardiovascular Exam: REGULAR RHYTHM, +S1, +S2. absent: Murmur - GI/Abdominal Exam GI & Abdominal Exam: Soft, Normal Bowel Sounds. absent: Tenderness - Rectal Exam Rectal Exam: NORMAL INSPECTION - Extremities Exam Extremities Exam: Full ROM, Normal Capillary Refill, Normal Inspection. absent: Joint Swelling, Pedal Edema - Back Exam Back Exam: NORMAL INSPECTION - Neurological Exam Neurological Exam: Alert, Awake, CN II-XII Intact, Normal Gait, Oriented x3 - Psychiatric Exam Psychiatric exam: Normal Affect, Normal Mood - Skin Skin Exam: Dry, Intact, Normal Color, Warm Assessment and Plan - Assessment and Plan (Free Text) Assessment: HEAD AND NECK TUMOR ESRD HOARSENESS FAILURE TO THRIVE CARDIAC DZ Plan: CONTINUE CURRENT RX AWAIT PT AND ONCOLOGY ARRANGEMENTS RE-TRANSFER TO ANOTHER INSTITUTION
--- NOTE | 2018-06-20 09:15 | CP.PCM.PN ---
Subjective - Date & Time of Evaluation Date of Evaluation: 06/20/18 Time of Evaluation: 09:14 - Subjective Subjective: Patient awake and conscious Complaining of generalized weakness Difficulty swallowing and hoarseness in his voice Objective - Vital Signs/Intake and Output Vital Signs (last 24 hours): Temp Pulse Resp BP Pulse Ox 97.5 F L 96 H 20 127/84 96 06/20/18 07:52 06/20/18 09:02 06/20/18 07:52 06/20/18 09:02 06/20/18 07:52 - Medications Medications: Current Medications Alprazolam (Xanax) 0.5 mg PO BID PRN PRN Reason: Anxiety Last Admin: 06/19/18 11:57 Dose: 0.5 mg Calcium Acetate (Phoslo) 667 mg PO TID [facility] Last Admin: 06/20/18 09:01 Dose: 667 mg Carvedilol (Coreg) 25 mg PO Q12 [facility] Last Admin: 06/20/18 09:02 Dose: 25 mg Famotidine (Pepcid) 20 mg PO DAILY [facility] Last Admin: 06/20/18 09:01 Dose: 20 mg Heparin Sodium (Porcine) (Heparin) 5,000 units SC Q12 [facility]; Protocol Last Admin: 06/20/18 09:03 Dose: 5,000 units Home Med (Entecavir [Baraclude]) 0.5 mg PO Q48H [facility] Last Admin: 06/18/18 20:36 Dose: 0.5 mg Ceftriaxone Sodium 1 gm/ (Sodium Chloride) 100 mls @ 100 mls/hr IVPB DAILY [facility]; Protocol Last Admin: 06/20/18 08:59 Dose: 100 mls/hr Levalbuterol HCl (Xopenex) 1.25 mg INH RQ8 [facility] Last Admin: 06/20/18 08:02 Dose: 1.25 mg Oxycodone/Acetaminophen (Percocet 5/325 Mg Tab) 1 tab PO Q4 PRN PRN Reason: Pain, moderate (4-7) Stop: 06/22/18 22:48 Last Admin: 06/19/18 22:59 Dose: 1 tab Promethazine HCl (Phenergan Syrup) 12.5 mg PO Q6 PRN PRN Reason: Cough Tacrolimus (Prograf Cap) 2 mg PO HS [facility] Last Admin: 06/19/18 21:49 Dose: 2 mg Zolpidem Tartrate (Ambien) 5 mg PO HS PRN PRN Reason: insomnia - Labs Labs: 06/14/18 04:35 06/17/18 09:45 PT 12.4 Seconds (9.8-13.1) 06/13/18 09:50 INR 1.1 06/13/18 09:50 APTT 33.6 Seconds (25.6-37.1) 06/14/18 04:35 - Constitutional Appears: No Acute Distress - Eye Exam Eye Exam: Conjunctival injection - ENT Exam ENT Exam: Mucous Membranes Dry - Neck Exam Neck Exam: Lymphadenopathy - Respiratory Exam Respiratory Exam: absent: Chest Wall Tenderness - Cardiovascular Exam Cardiovascular Exam: absent: Gallop, JVD, Rubs - GI/Abdominal Exam GI & Abdominal Exam: Soft, Normal Bowel Sounds - Extremities Exam Extremities Exam: absent: Calf Tenderness - Back Exam Back Exam: absent: CVA tenderness (L), CVA tenderness (R) - Neurological Exam Neurological Exam: Alert, Awake - Psychiatric Exam Psychiatric exam: Normal Affect - Skin Skin Exam: absent: Cyanosis Assessment and Plan (1) Chronic kidney disease, stage V Assessment & Plan: ESRD hx of liver transplant/ head and neck tumor Previous history of brain tumor Chronic debility Difficulty swallowing Recommendation Continue hemodialysis 3 times a week TTS Dietary consultation for supplement if he cannot swallow some other mean has to be discussed dockworker for arrangement as outpatient dialysis at [facility] Status: Acute (2) Acute on chronic systolic (congestive) heart failure Status: Acute (3) Generalized muscle weakness Status: Chronic (4) ASHD (arteriosclerotic heart disease) Status: Acute
[2018-06-20 15:09] LABS: MEAN CELL VOLUME 88.1 fl (80.0-94.0); MEAN CORPUSCULAR HEMOGLOBIN 29.3 pg (27.0-31.0); MEAN CORPUSCULAR HGB CONC 33.3 g/dL (33.0-37.0); RBC 4.08 Mil/uL (4.40-5.90); RED CELL DISTRIBUTION WIDTH 13.9 % (11.5-14.5); WHITE BLOOD COUNT 5.7 K/uL (4.8-10.8)
[2018-06-20 15:15] LABS: INR 1.1
[2018-06-20 15:17] LABS: ALB/GLOB RATIO 0.8 (1.0-2.1); CALCIUM 8.2 mg/dL (8.4-10.2)
[2018-06-20 15:52] LABS: PARTIAL THROMBOPLASTIN TIME 143.4 Seconds (25.6-37.1)
--- NOTE | 2018-06-20 16:12 | CP.PCM.PCO ---
Assessment/Plan - Assessment/Plan Assessment (Free Text): Discussed with patient, Dr Todd and Dr Arriaga, Patient wants transfer to [facility] for continuation of treatment, surgical evaluation. 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 #[phone] Arriaga and discussed plan of care. business services manager to follow up for subacute rehabilitation with HD setup. - Consults Consult Orders: Consultations 06/17/18 12:24 Nursing Referral for Palliative Care Routine Comment: Consulting Provider: Telma Hoff Physician Instructions: Reason For Exam: advance directive 06/17/18 13:26 Palliative Care Consult Routine Comment: Consulting Provider: Telma Hoff Physician Instructions: Reason For Exam: address advance directive - Problems Patient Problems: Problem List (Active/Current) Problem Status Onset Code Acute on chronic systolic (congestive) heart failure Acute I50.23 Anemia Acute D64.9 Chronic kidney disease, stage V Acute N18.5 Glomus tumor Acute D18.00 Hoarseness Acute R49.0 Swelling, mass, or lump in head and neck Acute R22.0, R22.1 Thrombocytopenia Acute D69.6 Weight loss, non-intentional Acute R63.4 Acute on chronic combined systolic and diastolic congestive heart failure Chronic I50.43 Generalized muscle weakness Chronic M62.81
--- NOTE | 2018-06-20 18:03 | CP.PCM.PN ---
Subjective - Date & Time of Evaluation Date of Evaluation: 06/20/18 Time of Evaluation: 18:02 - Subjective Subjective: discussed peg tube for nutrition with pt. he is thinking about it. Objective - Vital Signs/Intake and Output Vital Signs (last 24 hours): Temp Pulse Resp BP Pulse Ox 98.3 F 70 18 125/83 96 06/20/18 15:43 06/20/18 15:43 06/20/18 15:43 06/20/18 15:43 06/20/18 15:43 Intake and Output: 06/20/18 06/20/18 06:59 18:59 Intake Total 200 Balance 200 - Medications Medications: Current Medications Alprazolam (Xanax) 0.5 mg PO BID PRN PRN Reason: Anxiety Last Admin: 06/20/18 14:24 Dose: 0.5 mg Calcium Acetate (Phoslo) 667 mg PO TID [facility] Last Admin: 06/20/18 16:43 Dose: Not Given Carvedilol (Coreg) 25 mg PO Q12 [facility] Last Admin: 06/20/18 09:02 Dose: 25 mg Famotidine (Pepcid) 20 mg PO DAILY [facility] Last Admin: 06/20/18 09:01 Dose: 20 mg Home Med (Entecavir [Baraclude]) 0.5 mg PO Q48H [facility] Last Admin: 06/18/18 20:36 Dose: 0.5 mg Ceftriaxone Sodium 1 gm/ (Sodium Chloride) 100 mls @ 100 mls/hr IVPB DAILY [facility]; Protocol Last Admin: 06/20/18 08:59 Dose: 100 mls/hr Levalbuterol HCl (Xopenex) 1.25 mg INH RQ8 [facility] Last Admin: 06/20/18 15:19 Dose: Not Given Oxycodone/Acetaminophen (Percocet 5/325 Mg Tab) 1 tab PO Q4 PRN PRN Reason: Pain, moderate (4-7) Stop: 06/22/18 22:48 Last Admin: 06/19/18 22:59 Dose: 1 tab Promethazine HCl (Phenergan Syrup) 12.5 mg PO Q6 PRN PRN Reason: Cough Tacrolimus (Prograf Cap) 2 mg PO HS [facility] Last Admin: 06/19/18 21:49 Dose: 2 mg Zolpidem Tartrate (Ambien) 5 mg PO HS PRN PRN Reason: insomnia - Labs Labs: 06/20/18 14:55 06/20/18 14:55 PT 13.0 Seconds (9.8-13.1) 06/20/18 14:55 INR 1.1 06/20/18 14:55 APTT 143.4 Seconds (25.6-37.1) H 06/20/18 14:55 Assessment and Plan (1) Hoarseness Status: Acute (2) Swelling, mass, or lump in head and neck Status: Acute (3) Weight loss, non-intentional Status: Acute (4) Acute on chronic systolic (congestive) heart failure Status: Acute (5) Chronic kidney disease, stage V Status: Acute (6) AV node dysfunction Status: Chronic (7) Enlarged RV (right ventricle) Status: Chronic (8) Liver transplant disorder Status: Chronic (9) S/P placement of cardiac pacemaker Status: Chronic (10) Chronic atrial fibrillation Status: Chronic
[2018-06-20] MEDS: ENTECAVIR 0.5 MG PO SCH (21:30)
[2018-06-21 05:34] LABS: HEMOGLOBIN 12.7 g/dL (12.0-18.0); MEAN CELL VOLUME 88.4 fl (80.0-94.0); MEAN CORPUSCULAR HEMOGLOBIN 29.6 pg (27.0-31.0); MEAN CORPUSCULAR HGB CONC 33.5 g/dL (33.0-37.0); RBC 4.28 Mil/uL (4.40-5.90); RED CELL DISTRIBUTION WIDTH 13.7 % (11.5-14.5); WHITE BLOOD COUNT 7.3 K/uL (4.8-10.8)
[2018-06-21 05:39] LABS: CALCIUM 8.3 mg/dL (8.4-10.2)
[2018-06-21 05:40] LABS: INR 1.1; PROTHROMBIN TIME 12.8 Seconds (9.8-13.1)
[2018-06-21 05:43] LABS: PARTIAL THROMBOPLASTIN TIME 34.6 Seconds (25.6-37.1)
[2018-06-21] MEDS: Levalbuterol 1.25 MG/3 ML Inhal Soln UD INH SCH ×2 (08:06→16:06)
--- NOTE | 2018-06-21 11:54 | CP.PCM.PN ---
Subjective - Date & Time of Evaluation Date of Evaluation: 06/21/18 Time of Evaluation: 11:56 - Subjective Subjective: PT NOW AGREES TO HAVE A PEG PLACED HE UNDERSTANDS THAT ENT AT [facility] AND [facility] BOTH WANT HIM TO FOLLOW UP OUT PT FOR ENT EVALUATION AND POSSIBLE SURGERY Objective - Vital Signs/Intake and Output Vital Signs (last 24 hours): Temp Pulse Resp BP Pulse Ox 98.1 F 69 20 108/73 94 L 06/21/18 07:51 06/21/18 09:20 06/21/18 07:51 06/21/18 09:20 06/21/18 07:51 - Medications Medications: Current Medications Alprazolam (Xanax) 0.5 mg PO BID PRN PRN Reason: Anxiety Last Admin: 06/20/18 14:24 Dose: 0.5 mg Calcium Acetate (Phoslo) 667 mg PO TID [facility] Last Admin: 06/21/18 09:22 Dose: 667 mg Carvedilol (Coreg) 25 mg PO Q12 [facility] Last Admin: 06/21/18 09:20 Dose: Not Given Famotidine (Pepcid) 20 mg PO DAILY [facility] Last Admin: 06/21/18 09:22 Dose: 20 mg Home Med (Entecavir [Baraclude]) 0.5 mg PO Q48H [facility] Last Admin: 06/20/18 21:30 Dose: 0.5 mg Ceftriaxone Sodium 1 gm/ (Sodium Chloride) 100 mls @ 100 mls/hr IVPB DAILY [facility]; Protocol Last Admin: 06/21/18 09:26 Dose: 100 mls/hr Levalbuterol HCl (Xopenex) 1.25 mg INH RQ8 [facility] Last Admin: 06/21/18 08:06 Dose: 1.25 mg Oxycodone/Acetaminophen (Percocet 5/325 Mg Tab) 1 tab PO Q4 PRN PRN Reason: Pain, moderate (4-7) Stop: 06/22/18 22:48 Last Admin: 06/19/18 22:59 Dose: 1 tab Promethazine HCl (Phenergan Syrup) 12.5 mg PO Q6 PRN PRN Reason: Cough Tacrolimus (Prograf Cap) 2 mg PO HS [facility] Last Admin: 06/20/18 22:11 Dose: 2 mg Zolpidem Tartrate (Ambien) 5 mg PO HS PRN PRN Reason: insomnia - Labs Labs: 06/21/18 04:25 06/21/18 04:25 PT 12.8 Seconds (9.8-13.1) 06/21/18 04:25 INR 1.1 06/21/18 04:25 APTT 34.6 Seconds (25.6-37.1) 06/21/18 04:25 - Constitutional Appears: Chronically Ill - Head Exam Head Exam: ATRAUMATIC, NORMAL INSPECTION, NORMOCEPHALIC - Eye Exam Eye Exam: EOMI, Normal appearance, PERRL Pupil Exam: NORMAL ACCOMODATION, PERRL - ENT Exam ENT Exam: Mucous Membranes Moist, Normal Exam - Neck Exam Neck Exam: Full ROM, Normal Inspection. absent: Lymphadenopathy - Respiratory Exam Respiratory Exam: Clear to Ausculation Bilateral, NORMAL BREATHING PATTERN - Cardiovascular Exam Cardiovascular Exam: REGULAR RHYTHM, +S1, +S2. absent: Murmur - GI/Abdominal Exam GI & Abdominal Exam: Soft, Normal Bowel Sounds. absent: Tenderness - Rectal Exam Rectal Exam: NORMAL INSPECTION - Extremities Exam Extremities Exam: Full ROM, Normal Capillary Refill, Normal Inspection. absent: Joint Swelling, Pedal Edema - Back Exam Back Exam: NORMAL INSPECTION - Neurological Exam Neurological Exam: Abnormal Gait, Alert, Awake, CN II-XII Intact, Oriented x3 - Psychiatric Exam Psychiatric exam: Normal Affect, Normal Mood - Skin Skin Exam: Dry, Intact, Normal Color, Warm Assessment and Plan - Assessment and Plan (Free Text) Assessment: ACUTE ON CHRONIC KIDNEY FAILURE FAILURE TO THRIVE HAD AND NECK MASS Plan: FOR PEG PLACEMENT,THEN TRANSFER TO SUBACUTE CARE WITH PLAN TO REFER FOR OUT PT ENT FOLLOW UP
--- NOTE | 2018-06-21 16:33 | CP.PCM.PN ---
Subjective - Date & Time of Evaluation Date of Evaluation: 06/21/18 Time of Evaluation: 16:30 - Subjective Subjective: Patient still not swallowing. Objective - Vital Signs/Intake and Output Vital Signs (last 24 hours): Temp Pulse Resp BP Pulse Ox 97.6 F 70 20 117/78 93 L 06/21/18 15:38 06/21/18 15:38 06/21/18 15:38 06/21/18 15:38 06/21/18 15:38 - Medications Medications: Current Medications Alprazolam (Xanax) 0.5 mg PO BID PRN PRN Reason: Anxiety Last Admin: 06/20/18 14:24 Dose: 0.5 mg Calcium Acetate (Phoslo) 667 mg PO TID [facility] Last Admin: 06/21/18 12:31 Dose: Not Given Carvedilol (Coreg) 25 mg PO Q12 [facility] Last Admin: 06/21/18 09:20 Dose: Not Given Famotidine (Pepcid) 20 mg PO DAILY [facility] Last Admin: 06/21/18 09:22 Dose: 20 mg Home Med (Entecavir [Baraclude]) 0.5 mg PO Q48H [facility] Last Admin: 06/20/18 21:30 Dose: 0.5 mg Ceftriaxone Sodium 1 gm/ (Sodium Chloride) 100 mls @ 100 mls/hr IVPB DAILY [facility]; Protocol Last Admin: 06/21/18 09:26 Dose: 100 mls/hr Levalbuterol HCl (Xopenex) 1.25 mg INH RQ8 [facility] Last Admin: 06/21/18 16:06 Dose: Not Given Oxycodone/Acetaminophen (Percocet 5/325 Mg Tab) 1 tab PO Q4 PRN PRN Reason: Pain, moderate (4-7) Stop: 06/22/18 22:48 Last Admin: 06/19/18 22:59 Dose: 1 tab Promethazine HCl (Phenergan Syrup) 12.5 mg PO Q6 PRN PRN Reason: Cough Tacrolimus (Prograf Cap) 2 mg PO HS [facility] Last Admin: 06/20/18 22:11 Dose: 2 mg Zolpidem Tartrate (Ambien) 5 mg PO HS PRN PRN Reason: insomnia - Labs Labs: 06/21/18 04:25 06/21/18 04:25 PT 12.8 Seconds (9.8-13.1) 06/21/18 04:25 INR 1.1 06/21/18 04:25 APTT 34.6 Seconds (25.6-37.1) 06/21/18 04:25 - Head Exam Head Exam: ATRAUMATIC - Eye Exam Eye Exam: Normal appearance - ENT Exam ENT Exam: Normal Exam - Neck Exam Neck Exam: Full ROM - Respiratory Exam Respiratory Exam: Clear to Ausculation Bilateral - Cardiovascular Exam Cardiovascular Exam: REGULAR RHYTHM - GI/Abdominal Exam GI & Abdominal Exam: Soft. absent: Tenderness Assessment and Plan (1) Swelling, mass, or lump in head and neck Assessment & Plan: Unable to adequately meet nutrtional needs through oral intake. PEG on Sunday. Status: Acute
--- NOTE | 2018-06-21 17:08 | CP.PCM.PN ---
Subjective - Date & Time of Evaluation Date of Evaluation: 06/21/18 Time of Evaluation: 17:08 - Subjective Subjective: . Patient sitting up in bed. Awake and coughing intermittently and difficulty swallowing. Appears to be chronically ill. Vital signs noted to be stable. Objective - Vital Signs/Intake and Output Vital Signs (last 24 hours): Temp Pulse Resp BP Pulse Ox 97.6 F 70 20 117/78 93 L 06/21/18 15:38 06/21/18 15:38 06/21/18 15:38 06/21/18 15:38 06/21/18 15:38 - Medications Medications: Current Medications Alprazolam (Xanax) 0.5 mg PO BID PRN PRN Reason: Anxiety Last Admin: 06/20/18 14:24 Dose: 0.5 mg Calcium Acetate (Phoslo) 667 mg PO TID [facility] Last Admin: 06/21/18 16:42 Dose: 667 mg Carvedilol (Coreg) 25 mg PO Q12 [facility] Last Admin: 06/21/18 09:20 Dose: Not Given Famotidine (Pepcid) 20 mg PO DAILY [facility] Last Admin: 06/21/18 09:22 Dose: 20 mg Home Med (Entecavir [Baraclude]) 0.5 mg PO Q48H [facility] Last Admin: 06/20/18 21:30 Dose: 0.5 mg Ceftriaxone Sodium 1 gm/ (Sodium Chloride) 100 mls @ 100 mls/hr IVPB DAILY [facility]; Protocol Last Admin: 06/21/18 09:26 Dose: 100 mls/hr Levalbuterol HCl (Xopenex) 1.25 mg INH RQ8 [facility] Last Admin: 06/21/18 16:06 Dose: Not Given Oxycodone/Acetaminophen (Percocet 5/325 Mg Tab) 1 tab PO Q4 PRN PRN Reason: Pain, moderate (4-7) Stop: 06/22/18 22:48 Last Admin: 06/19/18 22:59 Dose: 1 tab Promethazine HCl (Phenergan Syrup) 12.5 mg PO Q6 PRN PRN Reason: Cough Tacrolimus (Prograf Cap) 2 mg PO HS [facility] Last Admin: 06/20/18 22:11 Dose: 2 mg Zolpidem Tartrate (Ambien) 5 mg PO HS PRN PRN Reason: insomnia - Labs Labs: 06/21/18 04:25 06/21/18 04:25 PT 12.8 Seconds (9.8-13.1) 06/21/18 04:25 INR 1.1 06/21/18 04:25 APTT 34.6 Seconds (25.6-37.1) 06/21/18 04:25 - Constitutional Appears: No Acute Distress - Eye Exam Eye Exam: Conjunctival injection - ENT Exam ENT Exam: Mucous Membranes Dry - Respiratory Exam Respiratory Exam: NORMAL BREATHING PATTERN. absent: Chest Wall Tenderness - Cardiovascular Exam Cardiovascular Exam: absent: Gallop, JVD, Rubs - GI/Abdominal Exam GI & Abdominal Exam: Soft, Normal Bowel Sounds - Extremities Exam Extremities Exam: absent: Calf Tenderness - Back Exam Back Exam: absent: CVA tenderness (L), CVA tenderness (R) - Neurological Exam Neurological Exam: Alert - Psychiatric Exam Psychiatric exam: Normal Affect - Skin Skin Exam: absent: Cyanosis Assessment and Plan (1) Chronic kidney disease, stage V Status: Acute (2) Acute on chronic systolic (congestive) heart failure Status: Acute (3) Generalized muscle weakness Status: Chronic (4) ASHD (arteriosclerotic heart disease) Status: Acute - Assessment and Plan (Free Text) Assessment: ESRD hx of liver transplant/ head and neck tumor Previous history of brain tumor Chronic debility Difficulty swallowing Recommendation Continue hemodialysis 3 times a week TTS Dietary consultation for supplement if he cannot swallow , patient going for PEG on Sunday as noted by GI As discussed with the primary physician regarding the possible of head neck ca ncer patient may be transferred to another institution?
--- NOTE | 2018-06-21 21:45 | CP.PCM.PN ---
Subjective - Date & Time of Evaluation Date of Evaluation: 06/20/18 Time of Evaluation: 18:00 - Subjective Subjective: Feels weak, requesting transfer to [facility]. Objective - Vital Signs/Intake and Output Vital Signs (last 24 hours): Temp Pulse Resp BP Pulse Ox 97.0 F L 75 20 120/74 95 06/21/18 19:56 06/21/18 21:05 06/21/18 19:56 06/21/18 21:05 06/21/18 19:56 - Medications Medications: Current Medications Alprazolam (Xanax) 0.5 mg PO BID PRN PRN Reason: Anxiety Last Admin: 06/20/18 14:24 Dose: 0.5 mg Calcium Acetate (Phoslo) 667 mg PO TID [facility] Last Admin: 06/21/18 16:42 Dose: 667 mg Carvedilol (Coreg) 25 mg PO Q12 [facility] Last Admin: 06/21/18 21:05 Dose: 25 mg Famotidine (Pepcid) 20 mg PO DAILY [facility] Last Admin: 06/21/18 09:22 Dose: 20 mg Home Med (Entecavir [Baraclude]) 0.5 mg PO Q48H [facility] Last Admin: 06/20/18 21:30 Dose: 0.5 mg Ceftriaxone Sodium 1 gm/ (Sodium Chloride) 100 mls @ 100 mls/hr IVPB DAILY [facility]; Protocol Last Admin: 06/21/18 09:26 Dose: 100 mls/hr Levalbuterol HCl (Xopenex) 1.25 mg INH RQ8 [facility] Last Admin: 06/21/18 16:06 Dose: Not Given Oxycodone/Acetaminophen (Percocet 5/325 Mg Tab) 1 tab PO Q4 PRN PRN Reason: Pain, moderate (4-7) Stop: 06/22/18 22:48 Last Admin: 06/19/18 22:59 Dose: 1 tab Promethazine HCl (Phenergan Syrup) 12.5 mg PO Q6 PRN PRN Reason: Cough Tacrolimus (Prograf Cap) 2 mg PO HS [facility] Last Admin: 06/21/18 21:06 Dose: 2 mg Zolpidem Tartrate (Ambien) 5 mg PO HS PRN PRN Reason: insomnia - Labs Labs: 06/21/18 04:25 06/21/18 04:25 PT 12.8 Seconds (9.8-13.1) 06/21/18 04:25 INR 1.1 06/21/18 04:25 APTT 34.6 Seconds (25.6-37.1) 06/21/18 04:25 - Head Exam Head Exam: ATRAUMATIC - Eye Exam Eye Exam: Normal appearance - ENT Exam ENT Exam: Mucous Membranes Dry - Respiratory Exam Respiratory Exam: Decreased Breath Sounds - Cardiovascular Exam Cardiovascular Exam: +S1, +S2 - GI/Abdominal Exam GI & Abdominal Exam: Normal Bowel Sounds Assessment and Plan (1) Glomus tumor Assessment & Plan: for transfer to [facility] for surgical resectability determination 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 to decline recommend holding heparin if plt lower tomorrow Status: Acute
--- NOTE | 2018-06-21 21:47 | CP.PCM.PN ---
Subjective - Date & Time of Evaluation Date of Evaluation: 06/21/18 Time of Evaluation: 12:00 - Subjective Subjective: Feeling weak. Objective - Vital Signs/Intake and Output Vital Signs (last 24 hours): Temp Pulse Resp BP Pulse Ox 97.0 F L 75 20 120/74 95 06/21/18 19:56 06/21/18 21:05 06/21/18 19:56 06/21/18 21:05 06/21/18 19:56 - Medications Medications: Current Medications Alprazolam (Xanax) 0.5 mg PO BID PRN PRN Reason: Anxiety Last Admin: 06/20/18 14:24 Dose: 0.5 mg Calcium Acetate (Phoslo) 667 mg PO TID [facility] Last Admin: 06/21/18 16:42 Dose: 667 mg Carvedilol (Coreg) 25 mg PO Q12 [facility] Last Admin: 06/21/18 21:05 Dose: 25 mg Famotidine (Pepcid) 20 mg PO DAILY [facility] Last Admin: 06/21/18 09:22 Dose: 20 mg Home Med (Entecavir [Baraclude]) 0.5 mg PO Q48H [facility] Last Admin: 06/20/18 21:30 Dose: 0.5 mg Ceftriaxone Sodium 1 gm/ (Sodium Chloride) 100 mls @ 100 mls/hr IVPB DAILY [facility]; Protocol Last Admin: 06/21/18 09:26 Dose: 100 mls/hr Levalbuterol HCl (Xopenex) 1.25 mg INH RQ8 [facility] Last Admin: 06/21/18 16:06 Dose: Not Given Oxycodone/Acetaminophen (Percocet 5/325 Mg Tab) 1 tab PO Q4 PRN PRN Reason: Pain, moderate (4-7) Stop: 06/22/18 22:48 Last Admin: 06/19/18 22:59 Dose: 1 tab Promethazine HCl (Phenergan Syrup) 12.5 mg PO Q6 PRN PRN Reason: Cough Tacrolimus (Prograf Cap) 2 mg PO HS [facility] Last Admin: 06/21/18 21:06 Dose: 2 mg Zolpidem Tartrate (Ambien) 5 mg PO HS PRN PRN Reason: insomnia - Labs Labs: 06/21/18 04:25 06/21/18 04:25 PT 12.8 Seconds (9.8-13.1) 06/21/18 04:25 INR 1.1 06/21/18 04:25 APTT 34.6 Seconds (25.6-37.1) 06/21/18 04:25 - Head Exam Head Exam: ATRAUMATIC - Eye Exam Eye Exam: Normal appearance - ENT Exam ENT Exam: Mucous Membranes Dry - Respiratory Exam Respiratory Exam: Decreased Breath Sounds - Cardiovascular Exam Cardiovascular Exam: +S1, +S2 - GI/Abdominal Exam GI & Abdominal Exam: Normal Bowel Sounds Assessment and Plan (1) Glomus tumor Assessment & Plan: for transfer to [facility] for resectability determination Status: Acute (2) Anemia Assessment & Plan: anemia of CKD Status: Acute (3) Thrombocytopenia Assessment & Plan: plt count improved Status: Acute
[2018-06-22] MEDS: Levalbuterol 1.25 MG/3 ML Inhal Soln UD INH SCH ×4 (00:17→23:31)
--- NOTE | 2018-06-22 09:25 | CP.PCM.PN ---
Subjective - Date & Time of Evaluation Date of Evaluation: 06/22/18 Time of Evaluation: 09:26 - Subjective Subjective: CLINICALLY UNCHANGED WEAK AND LYING IN BED Objective - Vital Signs/Intake and Output Vital Signs (last 24 hours): Temp Pulse Resp BP Pulse Ox 97.5 F L 67 20 101/67 93 L 06/22/18 08:30 06/22/18 08:30 06/22/18 08:30 06/22/18 08:30 06/22/18 08:30 - Medications Medications: Current Medications Calcium Acetate (Phoslo) 667 mg PO TID [facility] Last Admin: 06/21/18 16:42 Dose: 667 mg Carvedilol (Coreg) 25 mg PO Q12 [facility] Last Admin: 06/21/18 21:05 Dose: 25 mg Famotidine (Pepcid) 20 mg PO DAILY [facility] Last Admin: 06/21/18 09:22 Dose: 20 mg Home Med (Entecavir [Baraclude]) 0.5 mg PO Q48H [facility] Last Admin: 06/20/18 21:30 Dose: 0.5 mg Levalbuterol HCl (Xopenex) 1.25 mg INH RQ8 [facility] Last Admin: 06/22/18 07:05 Dose: 1.25 mg Oxycodone/Acetaminophen (Percocet 5/325 Mg Tab) 1 tab PO Q4 PRN PRN Reason: Pain, moderate (4-7) Stop: 06/22/18 22:48 Last Admin: 06/19/18 22:59 Dose: 1 tab Promethazine HCl (Phenergan Syrup) 12.5 mg PO Q6 PRN PRN Reason: Cough Tacrolimus (Prograf Cap) 2 mg PO HS [facility] Last Admin: 06/21/18 21:06 Dose: 2 mg - Labs Labs: 06/21/18 04:25 06/21/18 04:25 PT 12.8 Seconds (9.8-13.1) 06/21/18 04:25 INR 1.1 06/21/18 04:25 APTT 34.6 Seconds (25.6-37.1) 06/21/18 04:25 - Constitutional Appears: Chronically Ill - Head Exam Head Exam: ATRAUMATIC, NORMAL INSPECTION, NORMOCEPHALIC - Eye Exam Eye Exam: EOMI, Normal appearance, PERRL Pupil Exam: NORMAL ACCOMODATION, PERRL - ENT Exam ENT Exam: Mucous Membranes Moist, Normal Exam - Neck Exam Neck Exam: Full ROM, Normal Inspection. absent: Lymphadenopathy - Respiratory Exam Respiratory Exam: Decreased Breath Sounds, Prolonged Expiratory Phase, Rales, NORMAL BREATHING PATTERN - Cardiovascular Exam Cardiovascular Exam: REGULAR RHYTHM, +S1, +S2. absent: Murmur - GI/Abdominal Exam GI & Abdominal Exam: Soft, Normal Bowel Sounds. absent: Tenderness - Rectal Exam Rectal Exam: NORMAL INSPECTION - Extremities Exam Extremities Exam: Full ROM, Normal Capillary Refill, Normal Inspection. absent: Joint Swelling, Pedal Edema - Back Exam Back Exam: NORMAL INSPECTION - Neurological Exam Neurological Exam: Abnormal Gait, Alert, Awake, CN II-XII Intact, Oriented x3 - Psychiatric Exam Psychiatric exam: Normal Affect, Normal Mood - Skin Skin Exam: Dry, Intact, Normal Color, Warm Assessment and Plan - Assessment and Plan (Free Text) Assessment: ACUTE ON CHRONIC KIDNEY FAILURE HOARSENESS HEAD AND NECK MASS CACHEXIA CARDIOMYOPATHY HX OF LIVER TRANSPLANT Plan: CONTINUE CURRENT RX FOR PEG,THEN TRANSFER TO SUBACUTE CARE ENT FOLLOW UP OUT PT
--- NOTE | 2018-06-22 13:51 | CP.PCM.PN ---
Subjective - Date & Time of Evaluation Date of Evaluation: 06/22/18 Time of Evaluation: 13:49 - Subjective Subjective: RENAL seen and examined denies n/v o: vss gen: nad sclera: anicteric op: clear neck: supple cv: +s1+s2 no rub lungs rduced bs at bases abd: soft nt nd ext: no edema neuro: follows command psych: flat skin no rash imp: ESRD hx of liver transplant/ head and neck tumor Difficulty swallowing Recommendation HD TTS Continue hemodialysis 3 times a week TTS no need for SHIELA f/u primary team re: PEG phos stable on last check Objective - Vital Signs/Intake and Output Vital Signs (last 24 hours): Temp Pulse Resp BP Pulse Ox 97.2 F L 70 20 109/72 96 06/22/18 12:05 06/22/18 12:06/22/18 12:06/22/18 12:06/22/18 12:05 - Medications Medications: Current Medications Alprazolam (Xanax) 0.5 mg PO BID [facility] Calcium Acetate (Phoslo) 667 mg PO TID [facility] Last Admin: 06/22/18 12:50 Dose: Not Given Carvedilol (Coreg) 25 mg PO Q12 [facility] Last Admin: 06/22/18 09:26 Dose: Not Given Famotidine (Pepcid) 20 mg PO DAILY [facility] Last Admin: 06/22/18 09:26 Dose: 20 mg Home Med (Entecavir [Baraclude]) 0.5 mg PO Q48H [facility] Last Admin: 06/20/18 21:30 Dose: 0.5 mg Ceftriaxone Sodium 1 gm/ (Sodium Chloride) 100 mls @ 100 mls/hr IVPB DAILY [facility]; Protocol Last Admin: 06/22/18 09:53 Dose: Not Given Levalbuterol HCl (Xopenex) 1.25 mg INH RQ8 [facility] Last Admin: 06/22/18 07:05 Dose: 1.25 mg Oxycodone/Acetaminophen (Percocet 5/325 Mg Tab) 1 tab PO Q4 PRN PRN Reason: Pain, moderate (4-7) Stop: 06/22/18 22:48 Last Admin: 06/19/18 22:59 Dose: 1 tab Promethazine HCl (Phenergan Syrup) 12.5 mg PO Q6 PRN PRN Reason: Cough Tacrolimus (Prograf Cap) 2 mg PO HS [facility] Last Admin: 06/21/18 21:06 Dose: 2 mg Zolpidem Tartrate (Ambien) 5 mg PO HS [facility] - Labs Labs: 06/21/18 04:25 06/21/18 04:25 PT 12.8 Seconds (9.8-13.1) 06/21/18 04:25 INR 1.1 06/21/18 04:25 APTT 34.6 Seconds (25.6-37.1) 06/21/18 04:25
[2018-06-22] MEDS: ENTECAVIR 0.5 MG PO SCH (20:40)
--- NOTE | 2018-06-22 21:36 | CP.PCM.PN ---
Subjective - Date & Time of Evaluation Date of Evaluation: 06/22/18 Time of Evaluation: 16:00 - Subjective Subjective: Feels weak, unchanged Objective - Vital Signs/Intake and Output Vital Signs (last 24 hours): Temp Pulse Resp BP Pulse Ox 97.4 F L 70 20 90/55 L 93 L 06/22/18 20:10 06/22/18 20:41 06/22/18 20:10 06/22/18 20:41 06/22/18 20:10 - Medications Medications: Current Medications Alprazolam (Xanax) 0.5 mg PO BID [facility] Last Admin: 06/22/18 16:45 Dose: Not Given Calcium Acetate (Phoslo) 667 mg PO TID [facility] Last Admin: 06/22/18 16:45 Dose: Not Given Carvedilol (Coreg) 25 mg PO Q12 [facility] Last Admin: 06/22/18 20:41 Dose: Not Given Famotidine (Pepcid) 20 mg PO DAILY [facility] Last Admin: 06/22/18 09:26 Dose: 20 mg Home Med (Entecavir [Baraclude]) 0.5 mg PO Q48H [facility] Last Admin: 06/22/18 20:40 Dose: 0.5 mg Ceftriaxone Sodium 1 gm/ (Sodium Chloride) 100 mls @ 100 mls/hr IVPB DAILY [facility]; Protocol Last Admin: 06/22/18 09:53 Dose: Not Given Levalbuterol HCl (Xopenex) 1.25 mg INH RQ8 [facility] Last Admin: 06/22/18 15:25 Dose: Not Given Oxycodone/Acetaminophen (Percocet 5/325 Mg Tab) 1 tab PO Q4 PRN PRN Reason: Pain, moderate (4-7) Stop: 06/22/18 22:48 Last Admin: 06/19/18 22:59 Dose: 1 tab Promethazine HCl (Phenergan Syrup) 12.5 mg PO Q6 PRN PRN Reason: Cough Tacrolimus (Prograf Cap) 2 mg PO HS [facility] Last Admin: 06/21/18 21:06 Dose: 2 mg Zolpidem Tartrate (Ambien) 5 mg PO HS [facility] - Labs Labs: 06/21/18 04:25 06/21/18 04:25 PT 12.8 Seconds (9.8-13.1) 06/21/18 04:25 INR 1.1 06/21/18 04:25 APTT 34.6 Seconds (25.6-37.1) 06/21/18 04:25 - Constitutional Appears: Cachectic - Head Exam Head Exam: ATRAUMATIC - Eye Exam Eye Exam: Normal appearance - ENT Exam ENT Exam: Mucous Membranes Dry - Respiratory Exam Respiratory Exam: Decreased Breath Sounds - Cardiovascular Exam Cardiovascular Exam: +S1, +S2 - GI/Abdominal Exam GI & Abdominal Exam: Normal Bowel Sounds Assessment and Plan (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
[2018-06-23] MEDS: Levalbuterol 1.25 MG/3 ML Inhal Soln UD INH SCH ×3 (07:12→23:17)
--- NOTE | 2018-06-23 10:59 | CP.PCM.PN ---
Subjective - Date & Time of Evaluation Date of Evaluation: 06/23/18 Time of Evaluation: 10:59 - Subjective Subjective: CLINICALLY UNCHANGED STILL HOARSE WITH POOR APPETITE FOR POSSIBLE PEG AND TRANSFER TO SUBACUTE CARE ENT EVAL OUT PT Objective - Vital Signs/Intake and Output Vital Signs (last 24 hours): Temp Pulse Resp BP Pulse Ox 96.9 F L 78 20 119/79 92 L 06/23/18 08:16 06/23/18 09:00 06/23/18 08:16 06/23/18 08:27 06/23/18 08:16 - Medications Medications: Current Medications Alprazolam (Xanax) 0.5 mg PO BID [facility] Last Admin: 06/23/18 08:26 Dose: 0.5 mg Calcium Acetate (Phoslo) 667 mg PO TID [facility] Last Admin: 06/23/18 08:27 Dose: 667 mg Carvedilol (Coreg) 25 mg PO Q12 [facility] Last Admin: 06/23/18 08:27 Dose: 25 mg Famotidine (Pepcid) 20 mg PO DAILY [facility] Last Admin: 06/23/18 08:27 Dose: 20 mg Home Med (Entecavir [Baraclude]) 0.5 mg PO Q48H [facility] Last Admin: 06/22/18 20:40 Dose: 0.5 mg Ceftriaxone Sodium 1 gm/ (Sodium Chloride) 100 mls @ 100 mls/hr IVPB DAILY [facility]; Protocol Last Admin: 06/23/18 08:27 Dose: 100 mls/hr Levalbuterol HCl (Xopenex) 1.25 mg INH RQ8 [facility] Last Admin: 06/23/18 07:12 Dose: 1.25 mg Promethazine HCl (Phenergan Syrup) 12.5 mg PO Q6 PRN PRN Reason: Cough Tacrolimus (Prograf Cap) 2 mg PO HS [facility] Last Admin: 06/22/18 21:30 Dose: 2 mg Zolpidem Tartrate (Ambien) 5 mg PO HS [facility] Last Admin: 06/22/18 21:29 Dose: 5 mg - Labs Labs: 06/21/18 04:25 06/21/18 04:25 PT 12.8 Seconds (9.8-13.1) 06/21/18 04:25 INR 1.1 06/21/18 04:25 APTT 34.6 Seconds (25.6-37.1) 06/21/18 04:25
--- NOTE | 2018-06-23 13:01 | CP.PCM.PN ---
Subjective - Date & Time of Evaluation Date of Evaluation: 06/23/18 Time of Evaluation: 12:58 - Subjective Subjective: Patient with no new complaints. difficulty swallowing persists. Objective - Vital Signs/Intake and Output Vital Signs (last 24 hours): Temp Pulse Resp BP Pulse Ox 96.4 F L 70 20 101/63 92 L 06/23/18 12:23 06/23/18 12:23 06/23/18 12:23 06/23/18 12:23 06/23/18 12:23 - Medications Medications: Current Medications Alprazolam (Xanax) 0.5 mg PO BID [facility] Last Admin: 06/23/18 08:26 Dose: 0.5 mg Calcium Acetate (Phoslo) 667 mg PO TID [facility] Last Admin: 06/23/18 12:40 Dose: 667 mg Carvedilol (Coreg) 25 mg PO Q12 [facility] Last Admin: 06/23/18 08:27 Dose: 25 mg Famotidine (Pepcid) 20 mg PO DAILY [facility] Last Admin: 06/23/18 08:27 Dose: 20 mg Home Med (Entecavir [Baraclude]) 0.5 mg PO Q48H [facility] Last Admin: 06/22/18 20:40 Dose: 0.5 mg Ceftriaxone Sodium 1 gm/ (Sodium Chloride) 100 mls @ 100 mls/hr IVPB DAILY [facility]; Protocol Last Admin: 06/23/18 08:27 Dose: 100 mls/hr Potassium Chloride/Dextrose/Sod Cl (Potassium Chl 20 Meq In D5-Ns) 1,000 mls @ 60 mls/hr IV .[id number] [facility] Stop: 06/24/18 16:00 Levalbuterol HCl (Xopenex) 1.25 mg INH RQ8 [facility] Last Admin: 06/23/18 07:12 Dose: 1.25 mg Promethazine HCl (Phenergan Syrup) 12.5 mg PO Q6 PRN PRN Reason: Cough Tacrolimus (Prograf Cap) 2 mg PO HS [facility] Last Admin: 06/22/18 21:30 Dose: 2 mg Zolpidem Tartrate (Ambien) 5 mg PO HS [facility] Last Admin: 06/22/18 21:29 Dose: 5 mg - Labs Labs: 06/21/18 04:25 06/21/18 04:25 PT 12.8 Seconds (9.8-13.1) 06/21/18 04:25 INR 1.1 06/21/18 04:25 APTT 34.6 Seconds (25.6-37.1) 06/21/18 04:25 - Head Exam Head Exam: ATRAUMATIC - Eye Exam Eye Exam: Normal appearance Pupil Exam: PERRL - ENT Exam ENT Exam: Normal Exam - Respiratory Exam Respiratory Exam: Clear to Ausculation Bilateral - Cardiovascular Exam Cardiovascular Exam: REGULAR RHYTHM - GI/Abdominal Exam GI & Abdominal Exam: Normal Bowel Sounds Assessment and Plan (1) Swelling, mass, or lump in head and neck Assessment & Plan: Patient still with difficulty swallowing and agrreeable to PEG which is enoc eduled for tomorrow. Status: Acute
[2018-06-23] MEDS: Potassium Chl 20 mEq in D5-NS 1,000 ML IV SCH (19:41)
[2018-06-24] MEDS: Levalbuterol 1.25 MG/3 ML Inhal Soln UD INH SCH ×3 (07:47→23:22)
[2018-06-24] MEDS ORDERED: ceFAZolin 1 GM in Sodium Chloride 0.9% 100 ML IVPB ONE (09:20)
--- NOTE | 2018-06-24 09:25 | CP.PCM.PN ---
Subjective - Date & Time of Evaluation Date of Evaluation: 06/24/18 Time of Evaluation: 09:25 - Subjective Subjective: AWAKE AND ALERT SCHEDULED FOR PEG TODAY Objective - Vital Signs/Intake and Output Vital Signs (last 24 hours): Temp Pulse Resp BP Pulse Ox 97.8 F 68 20 126/81 94 L 06/24/18 08:16 06/24/18 09:16 06/24/18 08:16 06/24/18 09:16 06/24/18 08:16 - Medications Medications: Current Medications Alprazolam (Xanax) 0.5 mg PO BID [facility] Last Admin: 06/23/18 16:27 Dose: 0.5 mg Calcium Acetate (Phoslo) 667 mg PO TID [facility] Last Admin: 06/24/18 09:16 Dose: 667 mg Carvedilol (Coreg) 25 mg PO Q12 [facility] Last Admin: 06/24/18 09:16 Dose: 25 mg Famotidine (Pepcid) 20 mg PO DAILY [facility] Last Admin: 06/24/18 09:16 Dose: 20 mg Home Med (Entecavir [Baraclude]) 0.5 mg PO Q48H [facility] Last Admin: 06/22/18 20:40 Dose: 0.5 mg Ceftriaxone Sodium 1 gm/ (Sodium Chloride) 100 mls @ 100 mls/hr IVPB DAILY [facility]; Protocol Last Admin: 06/24/18 09:17 Dose: 100 mls/hr Potassium Chloride/Dextrose/Sod Cl (Potassium Chl 20 Meq In D5-Ns) 1,000 mls @ 60 mls/hr IV .[id number] [facility] Stop: 06/24/18 16:00 Last Admin: 06/23/18 19:41 Dose: 60 mls/hr Levalbuterol HCl (Xopenex) 1.25 mg INH RQ8 [facility] Last Admin: 06/24/18 07:47 Dose: 1.25 mg Promethazine HCl (Phenergan Syrup) 12.5 mg PO Q6 PRN PRN Reason: Cough Tacrolimus (Prograf Cap) 2 mg PO HS [facility] Last Admin: 06/23/18 21:41 Dose: 2 mg Zolpidem Tartrate (Ambien) 5 mg PO HS [facility] Last Admin: 06/23/18 21:40 Dose: 5 mg - Labs Labs: 06/21/18 04:25 06/21/18 04:25 PT 12.8 Seconds (9.8-13.1) 06/21/18 04:25 INR 1.1 06/21/18 04:25 APTT 34.6 Seconds (25.6-37.1) 06/21/18 04:25 - Constitutional Appears: Chronically Ill - Head Exam Head Exam: ATRAUMATIC, NORMAL INSPECTION, NORMOCEPHALIC - Eye Exam Eye Exam: EOMI, Normal appearance, PERRL Pupil Exam: NORMAL ACCOMODATION, PERRL - ENT Exam ENT Exam: Mucous Membranes Moist, Normal Exam - Neck Exam Neck Exam: Full ROM, Normal Inspection. absent: Lymphadenopathy - Respiratory Exam Respiratory Exam: Prolonged Expiratory Phase, Rales, NORMAL BREATHING PATTERN - Cardiovascular Exam Cardiovascular Exam: REGULAR RHYTHM, +S1, +S2. absent: Murmur - GI/Abdominal Exam GI & Abdominal Exam: Soft, Normal Bowel Sounds. absent: Tenderness - Rectal Exam Rectal Exam: NORMAL INSPECTION - Extremities Exam Extremities Exam: Full ROM, Normal Capillary Refill, Normal Inspection. absent: Joint Swelling, Pedal Edema - Back Exam Back Exam: NORMAL INSPECTION - Neurological Exam Neurological Exam: Alert, Awake, CN II-XII Intact, Normal Gait, Oriented x3 - Psychiatric Exam Psychiatric exam: Normal Affect, Normal Mood - Skin Skin Exam: Dry, Intact, Normal Color, Warm Assessment and Plan - Assessment and Plan (Free Text) Assessment: ACUTE RENAL FAILURE ANOREXIA CARDIOMYOPATHY Plan: FOR PEG PLACEMENT
--- NOTE | 2018-06-24 10:14 | CP.PCM.PN ---
Subjective - Date & Time of Evaluation Date of Evaluation: 06/24/18 Time of Evaluation: 10:13 - Subjective Subjective: Patient is awake and conscious was difficulty swallowing and hoarseness in his voice Vital signs noted to be stable Objective - Vital Signs/Intake and Output Vital Signs (last 24 hours): Temp Pulse Resp BP Pulse Ox 97.8 F 68 20 126/81 94 L 06/24/18 08:16 06/24/18 09:16 06/24/18 08:16 06/24/18 09:16 06/24/18 08:16 - Medications Medications: Current Medications Alprazolam (Xanax) 0.5 mg PO BID [facility] Last Admin: 06/24/18 09:52 Dose: Not Given Calcium Acetate (Phoslo) 667 mg PO TID [facility] Last Admin: 06/24/18 09:16 Dose: 667 mg Carvedilol (Coreg) 25 mg PO Q12 [facility] Last Admin: 06/24/18 09:16 Dose: 25 mg Famotidine (Pepcid) 20 mg PO DAILY [facility] Last Admin: 06/24/18 09:16 Dose: 20 mg Home Med (Entecavir [Baraclude]) 0.5 mg PO Q48H [facility] Last Admin: 06/22/18 20:40 Dose: 0.5 mg Ceftriaxone Sodium 1 gm/ (Sodium Chloride) 100 mls @ 100 mls/hr IVPB DAILY [facility]; Protocol Last Admin: 06/24/18 09:17 Dose: 100 mls/hr Potassium Chloride/Dextrose/Sod Cl (Potassium Chl 20 Meq In D5-Ns) 1,000 mls @ 60 mls/hr IV .[id number] [facility] Stop: 06/24/18 16:00 Last Admin: 06/23/18 19:41 Dose: 60 mls/hr Cefazolin Sodium 1 gm/ Sodium (Chloride) 100 mls @ 100 mls/hr IVPB ONCE ONE; Protocol Stop: 06/24/18 10:19 Last Admin: 06/24/18 09:52 Dose: 100 mls/hr Levalbuterol HCl (Xopenex) 1.25 mg INH RQ8 [facility] Last Admin: 06/24/18 07:47 Dose: 1.25 mg Promethazine HCl (Phenergan Syrup) 12.5 mg PO Q6 PRN PRN Reason: Cough Tacrolimus (Prograf Cap) 2 mg PO HS [facility] Last Admin: 06/23/18 21:41 Dose: 2 mg Zolpidem Tartrate (Ambien) 5 mg PO HS [facility] Last Admin: 06/23/18 21:40 Dose: 5 mg - Labs Labs: 06/21/18 04:25 06/21/18 04:25 PT 12.8 Seconds (9.8-13.1) 06/21/18 04:25 INR 1.1 06/21/18 04:25 APTT 34.6 Seconds (25.6-37.1) 06/21/18 04:25 - Constitutional Appears: No Acute Distress - Eye Exam Eye Exam: Conjunctival injection - ENT Exam ENT Exam: Mucous Membranes Moist - Respiratory Exam Respiratory Exam: Rhonchi, NORMAL BREATHING PATTERN - Cardiovascular Exam Cardiovascular Exam: absent: Gallop, JVD, Rubs - GI/Abdominal Exam GI & Abdominal Exam: Soft, Normal Bowel Sounds - Extremities Exam Extremities Exam: absent: Calf Tenderness - Back Exam Back Exam: absent: CVA tenderness (L), CVA tenderness (R) - Neurological Exam Neurological Exam: Awake - Psychiatric Exam Psychiatric exam: Normal Affect - Skin Skin Exam: absent: Cyanosis Assessment and Plan (1) Chronic kidney disease, stage V Assessment & Plan: ESRD hx of liver transplant/ head and neck tumor Previous history of brain tumor Chronic debility Difficulty swallowing Recommendation Continue hemodialysis 3 times a week TTS Dietary consultation for supplement if he cannot swallow , patient going for PEG Status: Acute (2) Acute on chronic systolic (congestive) heart failure Status: Acute (3) Generalized muscle weakness Status: Chronic (4) ASHD (arteriosclerotic heart disease) Status: Acute
[2018-06-24] MEDS: Sodium Chloride 0.9% 250 ML IV ONE ×2 (11:27)
[2018-06-24] MEDS ORDERED: Etomidate 20 mg/10ml Inj IV ONE ×2 (11:53→12:12)
[2018-06-24] MEDS ORDERED: Propofol 10 mg/ml Inj (20 ML) ONE (11:53)
[2018-06-24] MEDS ORDERED: Midazolam 2 MG/2 ML VIAL ONE (11:53)
[2018-06-24] MEDS ORDERED: Benzocaine/Butamben/Tetracai 14-2-2% TOP Spray TOP ONE (12:00)
[2018-06-24] MEDS ORDERED: Sodium Chloride 0.9% 250 ML IV ONE (12:22)
[2018-06-24] MEDS: Potassium Chl 20 mEq in D5-NS 1,000 ML IV SCH (15:01)
[2018-06-24] MEDS: ENTECAVIR 0.5 MG PO SCH (21:49)
--- NOTE | 2018-06-24 22:20 | CP.PCM.PN ---
Subjective - Date & Time of Evaluation Date of Evaluation: 06/24/18 Time of Evaluation: 19:00 - Subjective Subjective: s/p PEG tube, mild discomfort at site. Objective - Vital Signs/Intake and Output Vital Signs (last 24 hours): Temp Pulse Resp BP Pulse Ox 97.0 F L 70 18 119/79 93 L 06/24/18 20:15 06/24/18 21:49 06/24/18 20:15 06/24/18 21:49 06/24/18 20:15 Intake and Output: 06/24/18 06/25/18 18:59 06:59 Intake Total 160 Balance 160 - Medications Medications: Current Medications Alprazolam (Xanax) 0.5 mg PO BID [facility] Last Admin: 06/24/18 16:17 Dose: Not Given Calcium Acetate (Phoslo) 667 mg PO TID [facility] Last Admin: 06/24/18 16:18 Dose: 667 mg Carvedilol (Coreg) 25 mg PO Q12 [facility] Last Admin: 06/24/18 21:49 Dose: 25 mg Famotidine (Pepcid) 20 mg PO DAILY [facility] Last Admin: 06/24/18 09:16 Dose: 20 mg Home Med (Entecavir [Baraclude]) 0.5 mg PO Q48H [facility] Last Admin: 06/24/18 21:49 Dose: 0.5 mg Ceftriaxone Sodium 1 gm/ (Sodium Chloride) 100 mls @ 100 mls/hr IVPB DAILY [facility]; Protocol Last Admin: 06/24/18 09:17 Dose: 100 mls/hr Levalbuterol HCl (Xopenex) 1.25 mg INH RQ8 [facility] Last Admin: 06/24/18 15:13 Dose: Not Given Promethazine HCl (Phenergan Syrup) 12.5 mg PO Q6 PRN PRN Reason: Cough Tacrolimus (Prograf Cap) 2 mg PO HS [facility] Last Admin: 06/24/18 21:49 Dose: 2 mg Zolpidem Tartrate (Ambien) 5 mg PO HS [facility] Last Admin: 06/24/18 21:49 Dose: 5 mg - Labs Labs: 06/21/18 04:25 06/21/18 04:25 PT 12.8 Seconds (9.8-13.1) 06/21/18 04:25 INR 1.1 06/21/18 04:25 APTT 34.6 Seconds (25.6-37.1) 06/21/18 04:25 - Head Exam Head Exam: ATRAUMATIC - Eye Exam Eye Exam: Normal appearance - ENT Exam ENT Exam: Mucous Membranes Dry - Respiratory Exam Respiratory Exam: NORMAL BREATHING PATTERN - Cardiovascular Exam Cardiovascular Exam: +S1, +S2 - GI/Abdominal Exam GI & Abdominal Exam: Normal Bowel Sounds Assessment and Plan (1) Glomus tumor Assessment & Plan: outpatient evaluation at tertiary center Status: Acute (2) Anemia Assessment & Plan: anemia of CKD Status: Acute (3) Thrombocytopenia Assessment & Plan: improving Status: Acute
[2018-06-25] MEDS: Levalbuterol 1.25 MG/3 ML Inhal Soln UD INH SCH ×3 (07:39→23:28)
--- NOTE | 2018-06-25 09:10 | CP.PCM.PN ---
Subjective - Date & Time of Evaluation Date of Evaluation: 06/25/18 Time of Evaluation: 09:12 - Subjective Subjective: S/P PEG DIALYSIS IN PROGRESS Objective - Vital Signs/Intake and Output Vital Signs (last 24 hours): Temp Pulse Resp BP Pulse Ox 97.8 F 70 20 120/70 93 L 06/25/18 08:08 06/25/18 08:08 06/25/18 08:08 06/25/18 08:08 06/25/18 08:08 - Medications Medications: Current Medications Alprazolam (Xanax) 0.5 mg PO BID [facility] Last Admin: 06/25/18 07:43 Dose: 0.5 mg Calcium Acetate (Phoslo) 667 mg PO TID [facility] Last Admin: 06/24/18 16:18 Dose: 667 mg Carvedilol (Coreg) 25 mg PO Q12 [facility] Last Admin: 06/24/18 21:49 Dose: 25 mg Famotidine (Pepcid) 20 mg PO DAILY [facility] Last Admin: 06/24/18 09:16 Dose: 20 mg Home Med (Entecavir [Baraclude]) 0.5 mg PO Q48H [facility] Last Admin: 06/24/18 21:49 Dose: 0.5 mg Ceftriaxone Sodium 1 gm/ (Sodium Chloride) 100 mls @ 100 mls/hr IVPB DAILY [facility]; Protocol Last Admin: 06/24/18 09:17 Dose: 100 mls/hr Levalbuterol HCl (Xopenex) 1.25 mg INH RQ8 [facility] Last Admin: 06/25/18 07:39 Dose: Not Given Promethazine HCl (Phenergan Syrup) 12.5 mg PO Q6 PRN PRN Reason: Cough Tacrolimus (Prograf Cap) 2 mg PO HS [facility] Last Admin: 06/24/18 21:49 Dose: 2 mg Zolpidem Tartrate (Ambien) 5 mg PO HS [facility] Last Admin: 06/24/18 21:49 Dose: 5 mg - Labs Labs: 06/21/18 04:25 06/21/18 04:25 PT 12.8 Seconds (9.8-13.1) 06/21/18 04:25 INR 1.1 06/21/18 04:25 APTT 34.6 Seconds (25.6-37.1) 06/21/18 04:25 - Constitutional Appears: Cachectic, Chronically Ill - Head Exam Head Exam: ATRAUMATIC, NORMAL INSPECTION, NORMOCEPHALIC - Eye Exam Eye Exam: EOMI, Normal appearance, PERRL Pupil Exam: NORMAL ACCOMODATION, PERRL - ENT Exam ENT Exam: Mucous Membranes Moist, Normal Exam - Neck Exam Neck Exam: Full ROM, Normal Inspection. absent: Lymphadenopathy - Respiratory Exam Respiratory Exam: Rales, NORMAL BREATHING PATTERN - Cardiovascular Exam Cardiovascular Exam: REGULAR RHYTHM, +S1, +S2. absent: Murmur - GI/Abdominal Exam GI & Abdominal Exam: Soft, Normal Bowel Sounds. absent: Tenderness Additional comments: PEG IN PLACE - Rectal Exam Rectal Exam: NORMAL INSPECTION - Extremities Exam Extremities Exam: Full ROM, Normal Capillary Refill, Normal Inspection. absent: Joint Swelling, Pedal Edema - Back Exam Back Exam: NORMAL INSPECTION - Neurological Exam Neurological Exam: Abnormal Gait, Alert, Awake, CN II-XII Intact, Oriented x3 - Psychiatric Exam Psychiatric exam: Flat Affect - Skin Skin Exam: Dry, Intact, Normal Color, Warm Assessment and Plan - Assessment and Plan (Free Text) Assessment: ACUTE ON CHRONIC RENAL FAILURE ANOREXIA HEAD AND NECK MASS Plan: FOR DISCHARGE TO SUBACUTE CARE ENT RE-EVALUATION AT [facility] IN [place] WHEN MEDICALLY STABLE
--- NOTE | 2018-06-25 13:04 | CP.PCM.PN ---
Subjective - Date & Time of Evaluation Date of Evaluation: 06/25/18 Time of Evaluation: 10:55 - Subjective Subjective: Dialysis note He was seen on hemodialysis Patient tolerating okay. Vital signs stable. Patient is having hoarseness cannot talk and receiving GT tube feeding Objective - Vital Signs/Intake and Output Vital Signs (last 24 hours): Temp Pulse Resp BP Pulse Ox 97.6 F 69 20 108/73 94 L 06/25/18 12:35 06/25/18 12:35 06/25/18 12:35 06/25/18 12:35 06/25/18 12:35 - Medications Medications: Current Medications Alprazolam (Xanax) 0.5 mg PO BID [facility] Last Admin: 06/25/18 09:23 Dose: Not Given Calcium Acetate (Phoslo) 667 mg PO TID [facility] Last Admin: 06/25/18 12:06 Dose: Not Given Carvedilol (Coreg) 25 mg PO Q12 [facility] Last Admin: 06/25/18 09:23 Dose: Not Given Famotidine (Pepcid) 20 mg PO DAILY [facility] Last Admin: 06/25/18 09:28 Dose: 20 mg Home Med (Entecavir [Baraclude]) 0.5 mg PO Q48H [facility] Last Admin: 06/24/18 21:49 Dose: 0.5 mg Levalbuterol HCl (Xopenex) 1.25 mg INH RQ8 [facility] Last Admin: 06/25/18 07:39 Dose: Not Given Promethazine HCl (Phenergan Syrup) 12.5 mg PO Q6 PRN PRN Reason: Cough Tacrolimus (Prograf Cap) 2 mg PO HS [facility] Last Admin: 06/24/18 21:49 Dose: 2 mg Zolpidem Tartrate (Ambien) 5 mg PO HS [facility] Last Admin: 06/24/18 21:49 Dose: 5 mg - Labs Labs: 06/21/18 04:25 06/21/18 04:25 PT 12.8 Seconds (9.8-13.1) 06/21/18 04:25 INR 1.1 06/21/18 04:25 APTT 34.6 Seconds (25.6-37.1) 06/21/18 04:25 - Constitutional Appears: No Acute Distress - Eye Exam Eye Exam: Conjunctival injection - ENT Exam ENT Exam: Mucous Membranes Moist - Neck Exam Neck Exam: absent: Lymphadenopathy - Respiratory Exam Respiratory Exam: NORMAL BREATHING PATTERN. absent: Chest Wall Tenderness - GI/Abdominal Exam GI & Abdominal Exam: Soft, Normal Bowel Sounds - Extremities Exam Extremities Exam: absent: Calf Tenderness - Back Exam Back Exam: absent: CVA tenderness (L), CVA tenderness (R) - Neurological Exam Neurological Exam: Alert - Psychiatric Exam Psychiatric exam: Normal Affect - Skin Skin Exam: absent: Cyanosis Assessment and Plan (1) Chronic kidney disease, stage V Assessment & Plan: ESRD He was seen on hemodialysis with ultrafiltration of about 500 cc, Dialysis nurse at the bedside And patient tolerating okay hx of liver transplant/ head and neck tumor Previous history of brain tumor Chronic debility Difficulty swallowing Status post PEG Recommendation Continue hemodialysis 3 times a week TTS Status: Acute (2) Acute on chronic systolic (congestive) heart failure Status: Acute (3) Generalized muscle weakness Status: Chronic (4) ASHD (arteriosclerotic heart disease) Status: Acute
--- NOTE | 2018-06-25 19:53 | CP.PCM.PN ---
Subjective - Date & Time of Evaluation Date of Evaluation: 06/25/18 Time of Evaluation: 19:51 - Subjective Subjective: Patient w/o complaint. Gastrostomy functioning well. Objective - Vital Signs/Intake and Output Vital Signs (last 24 hours): Temp Pulse Resp BP Pulse Ox 97.5 F L 70 18 112/76 93 L 06/25/18 16:31 06/25/18 16:31 06/25/18 16:31 06/25/18 16:31 06/25/18 16:31 - Medications Medications: Current Medications Calcium Acetate (Phoslo) [address] [facility] Last Admin: 06/25/18 17:41 Dose: 667 mg Carvedilol (Coreg) [address] [facility] Last Admin: 06/25/18 09:23 Dose: Not Given Famotidine (Pepcid) [address] [facility] Last Admin: 06/25/18 09:28 Dose: 20 mg Home Med (Entecavir [Baraclude]) 0.[address] [facility] Last Admin: 06/24/18 21:49 Dose: 0.5 mg Levalbuterol HCl (Xopenex) 1.[address] [facility] Last Admin: 06/25/18 15:27 Dose: 1.25 mg Promethazine HCl (Phenergan Syrup) 12.5 mg PO Q6 PRN PRN Reason: Cough Tacrolimus (Prograf Cap) [address] [facility] Last Admin: 06/24/18 21:49 Dose: 2 mg Zolpidem Tartrate (Ambien) 5 mg PO [facility] Last Admin: 06/24/18 21:49 Dose: 5 mg - Labs Labs: 06/21/18 04:25 06/21/18 04:25 PT 12.8 Seconds (9.8-13.1) 06/21/18 04:25 INR 1.1 06/21/18 04:25 APTT 34.6 Seconds (25.6-37.1) 06/21/18 04:25 - Head Exam Head Exam: ATRAUMATIC - Neck Exam Neck Exam: Full ROM - Respiratory Exam Respiratory Exam: Clear to Ausculation Bilateral - Cardiovascular Exam Cardiovascular Exam: REGULAR RHYTHM - GI/Abdominal Exam GI & Abdominal Exam: Soft. absent: Tenderness Assessment and Plan (1) Swelling, mass, or lump in head and neck Assessment & Plan: Gastrostomy appears normal nd functioning well. Continue gastrostomy feedings. Status: Acute
[2018-06-26] MEDS: Levalbuterol 1.25 MG/3 ML Inhal Soln UD INH SCH (07:35)
--- NOTE | 2018-06-26 10:09 | CP.PCM.PN ---
Subjective - Date & Time of Evaluation Date of Evaluation: 06/26/18 Time of Evaluation: 10:09 - Subjective Subjective: FEELS WEAK PEG FEEDING IN PROGRESS Objective - Vital Signs/Intake and Output Vital Signs (last 24 hours): Temp Pulse Resp BP Pulse Ox 97.4 F L 70 18 116/74 93 L 06/26/18 07:50 06/26/18 09:18 06/26/18 07:50 06/26/18 09:18 06/26/18 07:50 - Medications Medications: Current Medications Calcium Acetate (Phoslo) 667 mg PO TID [facility] Last Admin: 06/26/18 09:18 Dose: 667 mg Carvedilol (Coreg) 25 mg PO Q12 [facility] Last Admin: 06/26/18 09:18 Dose: 25 mg Famotidine (Pepcid) 20 mg PO DAILY [facility] Last Admin: 06/26/18 09:19 Dose: 20 mg Home Med (Entecavir [Baraclude]) 0.5 mg PO Q48H [facility] Last Admin: 06/24/18 21:49 Dose: 0.5 mg Promethazine HCl (Phenergan Syrup) 12.5 mg PO Q6 PRN PRN Reason: Cough Tacrolimus (Prograf Cap) 2 mg PO HS [facility] Last Admin: 06/24/18 21:49 Dose: 2 mg - Labs Labs: 06/21/18 04:25 06/21/18 04:25 PT 12.8 Seconds (9.8-13.1) 06/21/18 04:25 INR 1.1 06/21/18 04:25 APTT 34.6 Seconds (25.6-37.1) 06/21/18 04:25 - Constitutional Appears: Cachectic, Chronically Ill - Head Exam Head Exam: ATRAUMATIC, NORMAL INSPECTION, NORMOCEPHALIC - Eye Exam Eye Exam: EOMI, Normal appearance, PERRL Pupil Exam: NORMAL ACCOMODATION, PERRL - ENT Exam ENT Exam: Mucous Membranes Moist, Normal Exam - Neck Exam Neck Exam: Full ROM, Normal Inspection. absent: Lymphadenopathy - Respiratory Exam Respiratory Exam: Rales, NORMAL BREATHING PATTERN - Cardiovascular Exam Cardiovascular Exam: REGULAR RHYTHM, +S1, +S2. absent: Murmur - GI/Abdominal Exam GI & Abdominal Exam: Soft, Normal Bowel Sounds. absent: Tenderness - Rectal Exam Rectal Exam: NORMAL INSPECTION - Extremities Exam Extremities Exam: Full ROM, Normal Capillary Refill, Normal Inspection. absent: Joint Swelling, Pedal Edema - Back Exam Back Exam: NORMAL INSPECTION - Neurological Exam Neurological Exam: Alert, Awake, CN II-XII Intact, Normal Gait, Oriented x3 - Psychiatric Exam Psychiatric exam: Normal Affect, Normal Mood - Skin Skin Exam: Dry, Intact, Normal Color, Warm Assessment and Plan - Assessment and Plan (Free Text) Assessment: ACUTE RENAL FAILURE CACHEXIA HEAD AND NECK TUMOR Plan: FOR TRANSFER TO SUBACUTE CARE
--- NOTE | 2018-06-26 10:58 | CP.PCM.PN ---
Subjective - Date & Time of Evaluation Date of Evaluation: 06/26/18 Time of Evaluation: 10:57 - Subjective Subjective: Patient in bed no significant changes. Patient has hoarseness and receiving feeding through the PEG Objective - Vital Signs/Intake and Output Vital Signs (last 24 hours): Temp Pulse Resp BP Pulse Ox 97.4 F L 70 18 116/74 93 L 06/26/18 07:50 06/26/18 09:18 06/26/18 07:50 06/26/18 09:18 06/26/18 07:50 - Medications Medications: Current Medications Calcium Acetate (Phoslo) 667 mg PO TID [facility] Last Admin: 06/26/18 09:18 Dose: 667 mg Carvedilol (Coreg) 25 mg PO Q12 [facility] Last Admin: 06/26/18 09:18 Dose: 25 mg Famotidine (Pepcid) 20 mg PO DAILY [facility] Last Admin: 06/26/18 09:19 Dose: 20 mg Home Med (Entecavir [Baraclude]) 0.5 mg PO Q48H [facility] Last Admin: 06/24/18 21:49 Dose: 0.5 mg Promethazine HCl (Phenergan Syrup) 12.5 mg PO Q6 PRN PRN Reason: Cough Tacrolimus (Prograf Cap) 2 mg PO HS [facility] Last Admin: 06/24/18 21:49 Dose: 2 mg - Labs Labs: 06/21/18 04:25 06/21/18 04:25 PT 12.8 Seconds (9.8-13.1) 06/21/18 04:25 INR 1.1 06/21/18 04:25 APTT 34.6 Seconds (25.6-37.1) 06/21/18 04:25 - Constitutional Appears: No Acute Distress - Eye Exam Eye Exam: Conjunctival injection - ENT Exam ENT Exam: Mucous Membranes Moist - Respiratory Exam Respiratory Exam: NORMAL BREATHING PATTERN - Cardiovascular Exam Cardiovascular Exam: absent: Gallop, JVD, Rubs - GI/Abdominal Exam GI & Abdominal Exam: Soft, Normal Bowel Sounds - Extremities Exam Extremities Exam: absent: Calf Tenderness - Back Exam Back Exam: absent: CVA tenderness (L), CVA tenderness (R) - Neurological Exam Neurological Exam: Alert - Psychiatric Exam Psychiatric exam: Normal Affect - Skin Skin Exam: absent: Cyanosis Assessment and Plan (1) Chronic kidney disease, stage V Assessment & Plan: ESRD hx of liver transplant/ head and neck tumor Previous history of brain tumor Chronic debility Difficulty swallowing Recommendation Continue hemodialysis 3 times a week TTS PEG ongoing and receiving feeding Patient to be transferred to subacute unit Status: Acute (2) Acute on chronic systolic (congestive) heart failure Status: Acute (3) Generalized muscle weakness Status: Chronic (4) ASHD (arteriosclerotic heart disease) Status: Acute
--- NOTE | 2018-06-26 17:01 | CP.PCM.PN ---
Subjective - Date & Time of Evaluation Date of Evaluation: 06/26/18 Time of Evaluation: 16:59 - Subjective Subjective: PT RESTING COMFORTABLY Objective - Vital Signs/Intake and Output Vital Signs (last 24 hours): Temp Pulse Resp BP Pulse Ox 97.4 F L 70 18 94/53 L 93 L 06/26/18 15:59 06/26/18 15:59 06/26/18 15:59 06/26/18 15:59 06/26/18 15:59 - Medications Medications: Current Medications Calcium Acetate (Phoslo) 667 mg PO TID [facility] Last Admin: 06/26/18 13:22 Dose: 667 mg Carvedilol (Coreg) 25 mg PO Q12 [facility] Last Admin: 06/26/18 09:18 Dose: 25 mg Famotidine (Pepcid) 20 mg PO DAILY [facility] Last Admin: 06/26/18 09:19 Dose: 20 mg Home Med (Entecavir [Baraclude]) 0.5 mg PO Q48H [facility] Last Admin: 06/24/18 21:49 Dose: 0.5 mg Promethazine HCl (Phenergan Syrup) 12.5 mg PO Q6 PRN PRN Reason: Cough Tacrolimus (Prograf Cap) 2 mg PO HS [facility] Last Admin: 06/24/18 21:49 Dose: 2 mg - Labs Labs: 06/21/18 04:25 06/21/18 04:25 PT 12.8 Seconds (9.8-13.1) 06/21/18 04:25 INR 1.1 06/21/18 04:25 APTT 34.6 Seconds (25.6-37.1) 06/21/18 04:25 Assessment and Plan (1) Hoarseness Status: Acute (2) Swelling, mass, or lump in head and neck Status: Acute (3) Weight loss, non-intentional Status: Acute (4) Acute on chronic systolic (congestive) heart failure Status: Acute (5) Chronic kidney disease, stage V Status: Acute (6) AV node dysfunction Status: Chronic (7) Enlarged RV (right ventricle) Status: Chronic (8) Liver transplant disorder Status: Chronic (9) S/P placement of cardiac pacemaker Status: Chronic (10) Chronic atrial fibrillation Status: Chronic - Assessment and Plan (Free Text) Plan: STABLE FOR TCU CONT CURRENT MEDS
[2018-06-26] MEDS: ENTECAVIR 0.5 MG PO SCH (21:37)
--- NOTE | 2018-06-26 22:55 | CP.PCM.PN ---
Subjective - Date & Time of Evaluation Date of Evaluation: 06/25/18 Time of Evaluation: 12:00 - Subjective Subjective: Feels weak Objective - Vital Signs/Intake and Output Vital Signs (last 24 hours): Temp Pulse Resp BP Pulse Ox 97.4 F L 70 20 102/66 95 06/26/18 20:14 06/26/18 21:37 06/26/18 20:14 06/26/18 21:37 06/26/18 20:14 - Medications Medications: Current Medications Calcium Acetate (Phoslo) 667 mg PO TID [facility] Last Admin: 06/26/18 17:00 Dose: 667 mg Carvedilol (Coreg) 25 mg PO Q12 [facility] Last Admin: 06/26/18 21:37 Dose: 25 mg Famotidine (Pepcid) 20 mg PO DAILY [facility] Last Admin: 06/26/18 09:19 Dose: 20 mg Home Med (Entecavir [Baraclude]) 0.5 mg PO Q48H [facility] Last Admin: 06/26/18 21:37 Dose: 0.5 mg Promethazine HCl (Phenergan Syrup) 12.5 mg PO Q6 PRN PRN Reason: Cough Tacrolimus (Prograf Cap) 2 mg PO HS [facility] Last Admin: 06/26/18 21:38 Dose: 2 mg - Labs Labs: 06/21/18 04:25 06/21/18 04:25 PT 12.8 Seconds (9.8-13.1) 06/21/18 04:25 INR 1.1 06/21/18 04:25 APTT 34.6 Seconds (25.6-37.1) 06/21/18 04:25 - Head Exam Head Exam: ATRAUMATIC - Eye Exam Eye Exam: Normal appearance - ENT Exam ENT Exam: Mucous Membranes Dry - Respiratory Exam Respiratory Exam: NORMAL BREATHING PATTERN - Cardiovascular Exam Cardiovascular Exam: +S1, +S2 - GI/Abdominal Exam GI & Abdominal Exam: Normal Bowel Sounds Assessment and Plan (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
--- NOTE | 2018-06-26 22:57 | CP.PCM.PN ---
Subjective - Date & Time of Evaluation Date of Evaluation: 06/26/18 Time of Evaluation: 18:00 - Subjective Subjective: Feels weak Objective - Vital Signs/Intake and Output Vital Signs (last 24 hours): Temp Pulse Resp BP Pulse Ox 97.4 F L 70 20 102/66 95 06/26/18 20:14 06/26/18 21:37 06/26/18 20:14 06/26/18 21:37 06/26/18 20:14 - Medications Medications: Current Medications Calcium Acetate (Phoslo) 667 mg PO TID [facility] Last Admin: 06/26/18 17:00 Dose: 667 mg Carvedilol (Coreg) 25 mg PO Q12 [facility] Last Admin: 06/26/18 21:37 Dose: 25 mg Famotidine (Pepcid) 20 mg PO DAILY [facility] Last Admin: 06/26/18 09:19 Dose: 20 mg Home Med (Entecavir [Baraclude]) 0.5 mg PO Q48H [facility] Last Admin: 06/26/18 21:37 Dose: 0.5 mg Promethazine HCl (Phenergan Syrup) 12.5 mg PO Q6 PRN PRN Reason: Cough Tacrolimus (Prograf Cap) 2 mg PO HS [facility] Last Admin: 06/26/18 21:38 Dose: 2 mg - Labs Labs: 06/21/18 04:25 06/21/18 04:25 PT 12.8 Seconds (9.8-13.1) 06/21/18 04:25 INR 1.1 06/21/18 04:25 APTT 34.6 Seconds (25.6-37.1) 06/21/18 04:25 - Head Exam Head Exam: ATRAUMATIC - Eye Exam Eye Exam: Normal appearance - ENT Exam ENT Exam: Mucous Membranes Dry - Respiratory Exam Respiratory Exam: NORMAL BREATHING PATTERN - Cardiovascular Exam Cardiovascular Exam: +S1, +S2 - GI/Abdominal Exam GI & Abdominal Exam: Normal Bowel Sounds Assessment and Plan (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
--- NOTE | 2018-06-27 09:14 | CP.PCM.PN ---
Subjective - Date & Time of Evaluation Date of Evaluation: 06/27/18 Time of Evaluation: 09:14 - Subjective Subjective: DISCHARGE WAS HELD BECAUSE OF ACUTE L EAR BLEED NO OTHER CLINICAL FINDINGS WILL AWAIT ENT RE-EVAL PRIOR TO D/C TO SUBACUTE CARE Objective - Vital Signs/Intake and Output Vital Signs (last 24 hours): Temp Pulse Resp BP Pulse Ox 97.8 F 70 18 111/70 94 L 06/27/18 08:02 06/27/18 08:52 06/27/18 08:02 06/27/18 08:52 06/27/18 08:02 Intake and Output: 06/27/18 06/27/18 06:59 18:59 Intake Total 420 Balance 420 - Medications Medications: Current Medications Calcium Acetate (Phoslo) 667 mg PO TID [facility] Last Admin: 06/27/18 08:51 Dose: 667 mg Carvedilol (Coreg) 25 mg PO Q12 [facility] Last Admin: 06/27/18 08:52 Dose: 25 mg Famotidine (Pepcid) 20 mg PO DAILY [facility] Last Admin: 06/27/18 08:53 Dose: 20 mg Home Med (Entecavir [Baraclude]) 0.5 mg PO Q48H [facility] Last Admin: 06/26/18 21:37 Dose: 0.5 mg Promethazine HCl (Phenergan Syrup) 12.5 mg PO Q6 PRN PRN Reason: Cough Tacrolimus (Prograf Cap) 2 mg PO HS [facility] Last Admin: 06/26/18 21:38 Dose: 2 mg - Labs Labs: 06/21/18 04:25 06/21/18 04:25 PT 12.8 Seconds (9.8-13.1) 06/21/18 04:25 INR 1.1 06/21/18 04:25 APTT 34.6 Seconds (25.6-37.1) 06/21/18 04:25
--- NOTE | 2018-06-27 10:16 | CP.PCM.PN ---
Subjective - Date & Time of Evaluation Date of Evaluation: 06/27/18 Time of Evaluation: 10:15 - Subjective Subjective: Patient in bed Appears to be sleeping Reported having bleeding from the ear Vital signs stable Objective - Vital Signs/Intake and Output Vital Signs (last 24 hours): Temp Pulse Resp BP Pulse Ox 97.8 F 70 18 111/70 94 L 06/27/18 08:02 06/27/18 08:52 06/27/18 08:02 06/27/18 08:52 06/27/18 08:02 Intake and Output: 06/27/18 06/27/18 06:59 18:59 Intake Total 420 Balance 420 - Medications Medications: Current Medications Calcium Acetate (Phoslo) 667 mg PO TID [facility] Last Admin: 06/27/18 08:51 Dose: 667 mg Carvedilol (Coreg) 25 mg PO Q12 [facility] Last Admin: 06/27/18 08:52 Dose: 25 mg Famotidine (Pepcid) 20 mg PO DAILY [facility] Last Admin: 06/27/18 08:53 Dose: 20 mg Home Med (Entecavir [Baraclude]) 0.5 mg PO Q48H [facility] Last Admin: 06/26/18 21:37 Dose: 0.5 mg Promethazine HCl (Phenergan Syrup) 12.5 mg PO Q6 PRN PRN Reason: Cough Tacrolimus (Prograf Cap) 2 mg PO HS [facility] Last Admin: 06/26/18 21:38 Dose: 2 mg - Labs Labs: 06/21/18 04:25 06/21/18 04:25 PT 12.8 Seconds (9.8-13.1) 06/21/18 04:25 INR 1.1 06/21/18 04:25 APTT 34.6 Seconds (25.6-37.1) 06/21/18 04:25 - Constitutional Appears: No Acute Distress - Eye Exam Eye Exam: Conjunctival injection - ENT Exam ENT Exam: Mucous Membranes Moist - Respiratory Exam Respiratory Exam: NORMAL BREATHING PATTERN. absent: Chest Wall Tenderness - GI/Abdominal Exam GI & Abdominal Exam: Soft, Normal Bowel Sounds - Extremities Exam Extremities Exam: absent: Calf Tenderness - Back Exam Back Exam: absent: CVA tenderness (L), CVA tenderness (R) - Neurological Exam Neurological Exam: Awake - Psychiatric Exam Psychiatric exam: Normal Affect - Skin Skin Exam: absent: Cyanosis Assessment and Plan (1) Chronic kidney disease, stage V Assessment & Plan: ESRD hx of liver transplant/ head and neck tumor Previous history of brain tumor Chronic debility Difficulty swallowing Recommendation Continue hemodialysis 3 times a week TTS PEG ongoing and receiving feeding Patient to be transferred to subacute unit Status: Acute (2) Acute on chronic systolic (congestive) heart failure Status: Acute (3) Generalized muscle weakness Status: Chronic (4) ASHD (arteriosclerotic heart disease) Status: Acute
[2018-06-27] MEDS: Multivitamin Vitamin B Complex (Nephro-Vite) Tab PO SCH (12:24)
--- NOTE | 2018-06-27 22:15 | CP.PCM.PN ---
Subjective - Date & Time of Evaluation Date of Evaluation: 06/27/18 Time of Evaluation: 13:00 - Subjective Subjective: Ear bleeding, D/C held for ENT evaluation Objective - Vital Signs/Intake and Output Vital Signs (last 24 hours): Temp Pulse Resp BP Pulse Ox 97.8 F 71 18 92/59 L 97 06/27/18 19:43 06/27/18 21:52 06/27/18 19:43 06/27/18 21:52 06/27/18 19:43 - Medications Medications: Current Medications Calcium Acetate (Phoslo) 667 mg PO TID [facility] Last Admin: 06/27/18 16:55 Dose: 667 mg Carvedilol (Coreg) 25 mg PO Q12 [facility] Last Admin: 06/27/18 21:52 Dose: Not Given Famotidine (Pepcid) 20 mg PO DAILY [facility] Last Admin: 06/27/18 08:53 Dose: 20 mg Home Med (Entecavir [Baraclude]) 0.5 mg PO Q48H [facility] Last Admin: 06/26/18 21:37 Dose: 0.5 mg Promethazine HCl (Phenergan Syrup) 12.5 mg PO Q6 PRN PRN Reason: Cough Tacrolimus (Prograf Cap) 2 mg PO HS [facility] Last Admin: 06/27/18 21:53 Dose: 2 mg Vitamin B Complex/Vit C/Folic Acid (Nephro-Bradly) 1 tab PO DAILY [facility] Last Admin: 06/27/18 12:24 Dose: 1 tab - Labs Labs: 06/21/18 04:25 06/21/18 04:25 PT 12.8 Seconds (9.8-13.1) 06/21/18 04:25 INR 1.1 06/21/18 04:25 APTT 34.6 Seconds (25.6-37.1) 06/21/18 04:25 - Head Exam Head Exam: ATRAUMATIC - Eye Exam Eye Exam: Normal appearance - ENT Exam ENT Exam: Mucous Membranes Dry - Respiratory Exam Respiratory Exam: NORMAL BREATHING PATTERN - Cardiovascular Exam Cardiovascular Exam: +S1, +S2 - GI/Abdominal Exam GI & Abdominal Exam: Normal Bowel Sounds Assessment and Plan (1) Glomus tumor Assessment & Plan: surgical treatment evaluation at tertiary center Status: Acute (2) Anemia Assessment & Plan: anemia of renal disease Status: Acute (3) Thrombocytopenia Assessment & Plan: mild, improved Status: Acute
[2018-06-28 08:20] VITALS: PULSE 71; RESP 18
[2018-06-28] MEDS: Multivitamin Vitamin B Complex (Nephro-Vite) Tab PO SCH (09:12)
--- NOTE | 2018-06-28 11:53 | CP.PCM.DIS ---
Provider - Provider Date of Admission: 06/12/18 22:23 Attending physician: Grey Arriaga MD Consults: 06/12/18 22:22 Nephrology Consult Stat Comment: Consulting Provider: Fer Barraza Consulting Physician: Fer Barraza Reason for Consult: acute renal injury 06/13/18 08:00 Cardiology Consult Routine Comment: Consulting Provider: Raimundo Tovar Consulting Physician: Raimundo Tovar Reason for Consult: CHF 06/15/18 11:49 Otolaryngology Consult Routine Consulting Provider: Georges Baker Consulting Physician: Georges Baker Reason for Consult: horse voice 06/17/18 12:24 Nursing Referral for Palliative Care Routine Comment: Consulting Provider: Telma Hoff Physician Instructions: Reason For Exam: advance directive 06/17/18 13:26 Palliative Care Consult Routine Comment: Consulting Provider: Telma Hoff Physician Instructions: Reason For Exam: address advance directive 06/18/18 12:54 Gastroenterology Consult Routine Comment: Consulting Provider: Louis Hollis Consulting Physician: Louis Hollis Reason for Consult: peg placement 06/19/18 09:25 Hematology Oncology Consult Routine Comment: Consulting Provider: Du Todd Consulting Physician: Du Todd Reason for Consult: HEAD AND NECK TUMOR Time Spent in preparation of Discharge (in minutes): 30 Diagnosis - Discharge Diagnosis (1) Acute on chronic systolic (congestive) heart failure Status: Acute (2) Anemia Status: Acute (3) Chronic kidney disease, stage V Status: Acute (4) Glomus tumor Status: Acute (5) Hoarseness Status: Acute (6) Swelling, mass, or lump in head and neck Status: Acute (7) Weight loss, non-intentional Status: Acute (8) Acute on chronic combined systolic and diastolic congestive heart failure Status: Chronic (9) Generalized muscle weakness Status: Chronic (10) ARF (acute renal failure) Status: Acute (11) ASHD (arteriosclerotic heart disease) Status: Acute (12) Medical non-compliance Status: Acute (13) Liver transplant disorder Status: Chronic (14) S/P placement of cardiac pacemaker Status: Chronic Hospital Course - Lab Results Lab Results: Micro Results 06/13/18 10:01 Blood-Venous Blood Culture - Final NO GROWTH AFTER 5 DAYS 06/13/18 10:01 Blood-Venous Gram Stain - Final TEST NOT PERFORMED 06/13/18 09:50 Blood-Venous Blood Culture - Final NO GROWTH AFTER 5 DAYS 06/13/18 09:50 Blood-Venous Gram Stain - Final TEST NOT PERFORMED 06/13/18 20:30 Sputum Gram Stain - Final 06/13/18 20:30 Sputum Sputum Culture - Final Serratia Marcescens Most Recent Lab Values WBC 7.3 K/uL (4.8-10.8) 06/21/18 04:25 RBC 4.28 Mil/uL (4.40-5.90) L 06/21/18 04:25 Hgb 12.7 g/dL (12.0-18.0) 06/21/18 04:25 Hct 37.8 % (35.0-51.0) 06/21/18 04:25 MCV 88.4 fl (80.0-94.0) 06/21/18 04:25 MCH 29.6 pg (27.0-31.0) 06/21/18 04:25 MCHC 33.5 g/dL (33.0-37.0) 06/21/18 04:25 RDW 13.7 % (11.5-14.5) 06/21/18 04:25 Plt Count 93 K/uL (130-400) L 06/21/18 04:25 MPV 10.0 fl (7.2-11.7) 06/12/18 17:35 Neut % (Auto) 82.2 % (50.0-75.0) H 06/12/18 17:35 Lymph % (Auto) 10.4 % (20.0-40.0) L 06/12/18 17:35 [place] % (Auto) 5.9 % (0.0-10.0) 06/12/18 17:35 Eos % (Auto) 0.9 % (0.0-4.0) 06/12/18 17:35 Baso % (Auto) 0.6 % (0.0-2.0) 06/12/18 17:35 Neut # (Auto) 7.5 K/uL (1.8-7.0) H 06/12/18 17:35 Lymph # (Auto) 0.9 K/uL (1.0-4.3) L 06/12/18 17:35 [place] # (Auto) 0.5 K/uL (0.0-0.8) 06/12/18 17:35 Eos # (Auto) 0.1 K/uL (0.0-0.7) 06/12/18 17:35 Baso # (Auto) 0.1 K/uL (0.0-0.2) 06/12/18 17:35 PT 12.8 Seconds (9.8-13.1) 06/21/18 04:25 INR 1.1 06/21/18 04:25 APTT 34.6 Seconds (25.6-37.1) 06/21/18 04:25 pCO2 32 mm/Hg (35-45) L 06/14/18 09:09 pO2 93 mm/Hg (80-100) 06/14/18 09:09 HCO3 22.7 mmol/L (21-28) 06/14/18 09:09 ABG pH 7.42 (7.35-7.45) 06/14/18 09:09 ABG Total CO2 21.8 mmol/L (22-28) L 06/14/18 09:09 ABG O2 Saturation 100.6 % (95-98) H 06/14/18 09:09 ABG Base Excess -2.8 mmol/L (-2.0-3.0) L 06/14/18 09:09 Prudencio Test Yes 06/14/18 09:09 ABG Potassium 4.0 mmol/L (3.6-5.2) 06/14/18 09:09 A-a O2 Difference 580.0 mm/Hg 06/14/18 09:09 Sodium 136.0 mmol/L (132-148) 06/14/18 09:09 Chloride 104.0 mmol/L (98-107) 06/14/18 09:09 Glucose 75 mg/dL (75-110) 06/14/18 09:09 Lactate 0.9 mmol/L (0.7-2.1) 06/14/18 09:09 Vent Mode Nrm 06/14/18 09:09 FiO2 100.0 % 06/14/18 09:09 Sodium 136 mmol/l (132-148) 06/21/18 04:25 Potassium 4.2 MMOL/L (3.6-5.0) 06/21/18 04:25 Chloride 98 mmol/L (98-107) 06/21/18 04:25 Carbon Dioxide 26 mmol/L (22-30) 06/21/18 04:25 Anion Gap 16 (10-20) 06/21/18 04:25 BUN 60 mg/dl (9-20) H 06/21/18 04:25 Creatinine 5.2 mg/dl (0.8-1.5) H 06/21/18 04:25 Est GFR ( Amer) 14 06/21/18 04:25 Est GFR (Non-Af Amer) 11 06/21/18 04:25 Random Glucose 82 mg/dL (75-110) 06/21/18 04:25 Calcium 8.3 mg/dL (8.4-10.2) L 06/21/18 04:25 Phosphorus 4.5 mg/dl (2.5-4.5) 06/13/18 12:15 Total Bilirubin 0.6 mg/dl (0.2-1.3) 06/20/18 14:55 AST 11 U/L (17-59) L D 06/20/18 14:55 ALT 22 U/L (21-72) 06/20/18 14:55 Alkaline Phosphatase 116 U/L (38-126) 06/20/18 14:55 Troponin I 0.0780 ng/mL (0.00-0.120) 06/13/18 09:50 NT-Pro-B Natriuret Pep 84216 pg/ml (0-900) H 06/13/18 05:41 Total Protein 6.7 G/DL (6.3-8.2) 06/20/18 14:55 Albumin 3.0 g/dL (3.5-5.0) L 06/20/18 14:55 Globulin 3.6 gm/dL (2.2-3.9) 06/20/18 14:55 Albumin/Globulin Ratio 0.8 (1.0-2.1) L 06/20/18 14:55 PTH Intact Whole Molec 90 pg/mL (14-64) H 06/13/18 12:15 Arterial Blood Potassium 4.0 mmol/L (3.6-5.2) 06/14/18 09:09 Urine Color Yellow (YELLOW) 06/13/18 03:10 Urine Clarity Clear (Clear) 06/13/18 03:10 Urine pH 6.0 (5.0-8.0) 06/13/18 03:10 Ur Specific [place] 1.015 (1.003-1.030) 06/13/18 03:10 Urine Protein 30 mg/dL (NEGATIVE) 06/13/18 03:10 Urine Glucose (UA) Neg mg/dL (NEGATIVE) 06/13/18 03:10 Urine Ketones Trace mg/dL (NEGATIVE) 06/13/18 03:10 Urine Blood Negative (NEGATIVE) 06/13/18 03:10 Urine Nitrate Negative (NEGATIVE) 06/13/18 03:10 Urine Bilirubin Negative (NEGATIVE) 06/13/18 03:10 Urine Urobilinogen 0.2-1.0 mg/dL (0.2-1.0) 06/13/18 03:10 Ur Leukocyte Esterase Neg [place]/uL (Negative) 06/13/18 03:10 Urine RBC (Auto) 3 /hpf (0-3) 06/13/18 03:10 Urine Microscopic WBC 1 /hpf (0-5) 06/13/18 03:10 Hyaline Casts 3-5 /hpf (0-2) H 06/13/18 03:10 Tacrolimus (LC/MS/MS) 12.1 mcg/L (5.0-20.0) 06/21/18 15:51 Hepatitis A IgM Ab Negative (NEGATIVE) 06/13/18 13:40 Hep Bs Antigen Negative (NEGATIVE) 06/13/18 13:40 Hep Bs Antibody, Quant <5 mIU/mL (>or=10) L 06/15/18 16:34 Hep B Core IgM Ab Negative (NEGATIVE) 06/13/18 13:40 Hepatitis C Antibody Negative (NEGATIVE) 06/13/18 13:40 - Hospital Course Hospital Course: 62 yr old male admitted with acute on chronic kidney dz,head and neck tumor,wt loss and generalized weakness.he required hemodialysis and peg placement for feeding.surgery for head and neck tumor to be arranged by pt following visit with his ent doctor. Discharge Exam - Head Exam Head Exam: ATRAUMATIC - Eye Exam Eye Exam: EOMI, Normal appearance, PERRL Pupil Exam: NORMAL ACCOMODATION, PERRL - ENT Exam ENT Exam: Normal Exam Additional comments: hoarse - Neck Exam Neck exam: Full Rom, Normal Inspection - Respiratory Exam Respiratory Exam: NORMAL BREATHING PATTERN - Cardiovascular Exam Cardiovascular Exam: REGULAR RHYTHM Additional comments: pacemaker in place - GI/Abdominal Exam GI & Abdominal Exam: Normal Bowel Sounds Additional comments: peg in place - Rectal Exam Rectal Exam: NORMAL INSPECTION - Neurological Exam Neurological exam: Abnormal Gait, Alert, CN II-XII Intact, Oriented x3, Reflexes Normal - Psychiatric Exam Psychiatric exam: Normal Affect, Normal Mood - Skin Skin Exam: Dry, Intact, Normal Color, Warm Discharge Plan - Discharge Medications Prescriptions: Entecavir [Baraclude] 0.5 mg PO Q48H #10 - Follow Up Plan Condition: STABLE Disposition: HOME/ ROUTINE Instructions: Heart Failure, Adult (DC), Chronic Kidney Disease (DC) Additional Instructions: transfer to subacute care pt to see ent as out pt Referrals: Fer Barraza MD [Staff Provider] - Grey Arriaga MD [Family Provider] - Shaneka Allen MD [Staff Provider] -
[2018-06-28 12:15] VITALS: BP 97/64; TEMP 97.7; O2SAT 98
--- NOTE | 2018-06-28 12:35 | CON ---
DATE: 06/27/2018 REASON FOR VISIT: Left ear bleeding. HISTORY OF PRESENT ILLNESS: This is a 62-year-old male with a history of left ear bleeding which happened last night, it was mild intensity, stopped by itself. The patient has not bled since. 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 PAST MEDICAL HISTORY: As noted in the chart by me. MEDICATIONS: As noted in the chart by me. ALLERGIES: NOTED IN THE CHART BY ME. PHYSICAL EXAMINATION: HEAD: Atraumatic and normocephalic. FACE: Good facial movements bilaterally. CONSTITUTIONAL: Well-fed, well-nourished. COMMUNICATION: Communicates well and appropriately. EXTERNAL NOSE AND EARS: No masses, no lesions, no erythema, no edema. INTERNAL NOSE: Deviated septum. No masses, no lesions, no erythema, no edema. ORAL CAVITY AND OROPHARYNX: No masses, or lesions, no erythema, no edema. NECK: Supple. THYROID: No thyromegaly. No goiter. LYMPH NODES: No lymphadenopathy of the neck. EARS: There is old blood in the ear on the left side. No active bleeding. PLAN: At this point, since the bleeding was mild and has stopped, packing the ear would not be advised. The bleeding could possibly be from the tumor; however, since it is not bleeding, packing would not be something I would recommend at this point. The patient can be transferred to an acute rehab facility and from there be sent to office. I discussed the plan with and gave him the patient's name and phone number to the acute rehab facility he is going to so that an appointment can be made for him to follow up in his office. Georges Baker MD
--- NOTE | 2018-06-28 13:06 | CP.PCM.PN ---
Subjective - Date & Time of Evaluation Date of Evaluation: 06/28/18 Time of Evaluation: 13:04 - Subjective Subjective: Patient awake and conscious but he appears to be chronically ill Receiving GT tube feeding Objective - Vital Signs/Intake and Output Vital Signs (last 24 hours): Temp Pulse Resp BP Pulse Ox 97.7 F 71 18 97/64 L 98 06/28/18 12:14 06/28/18 12:14 06/28/18 12:14 06/28/18 12:14 06/28/18 12:14 - Medications Medications: Current Medications Calcium Acetate (Phoslo) 667 mg PO TID [facility] Last Admin: 06/28/18 09:13 Dose: 667 mg Carvedilol (Coreg) 25 mg PO Q12 [facility] Last Admin: 06/28/18 09:13 Dose: 25 mg Famotidine (Pepcid) 20 mg PO DAILY [facility] Last Admin: 06/28/18 09:12 Dose: 20 mg Home Med (Entecavir [Baraclude]) 0.5 mg PO Q48H [facility] Last Admin: 06/26/18 21:37 Dose: 0.5 mg Promethazine HCl (Phenergan Syrup) 12.5 mg PO Q6 PRN PRN Reason: Cough Tacrolimus (Prograf Cap) 2 mg PO HS [facility] Last Admin: 06/27/18 21:53 Dose: 2 mg Vitamin B Complex/Vit C/Folic Acid (Nephro-Bradly) 1 tab PO DAILY [facility] Last Admin: 06/28/18 09:12 Dose: 1 tab - Labs Labs: 06/21/18 04:25 06/21/18 04:25 PT 12.8 Seconds (9.8-13.1) 06/21/18 04:25 INR 1.1 06/21/18 04:25 APTT 34.6 Seconds (25.6-37.1) 06/21/18 04:25 - Constitutional Appears: No Acute Distress - Eye Exam Eye Exam: Conjunctival injection - ENT Exam ENT Exam: Mucous Membranes Moist - Respiratory Exam Respiratory Exam: NORMAL BREATHING PATTERN. absent: Chest Wall Tenderness, Rhonchi - Cardiovascular Exam Cardiovascular Exam: absent: Gallop, JVD, Rubs - GI/Abdominal Exam GI & Abdominal Exam: Soft, Normal Bowel Sounds - Extremities Exam Extremities Exam: absent: Calf Tenderness - Back Exam Back Exam: absent: CVA tenderness (L), CVA tenderness (R) - Neurological Exam Neurological Exam: Awake - Psychiatric Exam Psychiatric exam: Normal Affect - Skin Skin Exam: absent: Cyanosis Assessment and Plan (1) Chronic kidney disease, stage V Assessment & Plan: Assessment & Plan: ESRD hx of liver transplant/ head and neck tumor Previous history of brain tumor Chronic debility Difficulty swallowing Recommendation Continue hemodialysis 3 times a week TTS PEG ongoing and receiving feeding Patient to be transferred to subacute unit Status: Acute (2) Acute on chronic systolic (congestive) heart failure Status: Acute (3) Generalized muscle weakness Status: Chronic (4) ASHD (arteriosclerotic heart disease) Status: Acute
--- NOTE | 2018-06-28 13:48 | PQF ---
PROVIDER RESPONSE TEXT: Congestive cardiomyopathy with arrythmias--s/p pacemaker p[lacement REVIEWER QUERY TEXT: Cardiomyopathy Type Physician?s Documentation Request This Form is Not a Permanent Document in the Medical Record Pt Name: TASHI AMOS MR #: [id number] Payor: MEDICARE PART A Unit/Bed: H.TEL-H411-1 Adm Date: 06/12/2018 10:23:00 PM Reviewer: Carla Nice Ext. Query Date: 06/21/2018 3:31:28 PM Cardiomyopathy Type [id number] By submitting this query, we are merely seeking further clarification of documentation to accurately reflect all conditions that you are monitoring, evaluating, treating or that extend the hospitalizati on or utilize additional resources of care. Please utilize your independent clinical judgment when ad dressing the question(s) below. Dear Doctor Grey Arriaga, The patient?s Clinical Indicators include: -- Cardiomyopathy is documented in the Medical Record. Please specify the type: if known Such as: -- Alcoholic -- Congestive -- Constrictive -- Dilated -- Hypertensive -- Ischemic -- Obstructive Hypertrophic - IHSS -- Other Hypertrophic -- Other, please specify PLEASE DOCUMENT ANY ADDITIONAL DIAGNOSES AND/OR SPECIFICITY IN THE PROGRESS NOTES AND/OR DISCHARGE FELIZ MMARY. Clinically unable to determine/unknown Disagree with the above request Need to discuss Query created by: Carla Nice on 06/21/2018 3:31 PM Electronically signed by: Grey Arriaga MD 06/28/2018 1:45 PM
--- NOTE | 2018-06-28 13:48 | PQF ---
PROVIDER RESPONSE TEXT: Aspiration pneumonia-acute[due to head and neck mass] REVIEWER QUERY TEXT: Pneumonia Specificity Physician?s Documentation Request This Form is Not a Permanent Document in the Medical Record Pt Name: TASHI AMOS MR #: [id number] Payor: MEDICARE PART A Unit/Bed: H.TEL-H411-1 Adm Date: 06/12/2018 10:23:00 PM Reviewer: Carla Nice Ext. Query Date: 06/20/2018 1:05:00 PM Pneumonia Specificity [id number] By submitting this query, we are merely seeking further clarification of documentation to accurately reflect all conditions that you are monitoring, evaluating, treating or that extend the hospitalizati on or utilize additional resources of care. Please utilize your independent clinical judgment when ad dressing the question(s) below. Dear Doctor Grey Arriaga, The patient?s Clinical Indicators include: -- Pneumonia is documented in the H and P : on 06/13 progress note : upper respiratory infection--r/o pn eumonia is documented. Please specify the type of pneumonia and the causative organism (includes prob able or suspected) if ruled in versus Pneumonia is ruled out. Such as: Type: -- Aspiration pneumonia (please also specify the aspirate - Please indicate if the aspiration is postprocedure -- Bacterial (please document suspected or probable organism) -- Bronchopneumonia (please document suspected or probable organism) -- Interstitial pneumonia -- Organizing pneumonia / BOOP -- Pneumonia with influenza, kristina flu, or H1N1 flu -- RSV -- Viral -- Other, please specify sputum culture: Serratia Marcesens WBC:9.1->7.2->5.3 left shift afebrile O2 sat.: 98->95->94->95->94->[address]: 1.Cardiomegaly is identified with 3.5 cm main pulmonary artery suggesting but not defi nitive for pulmonary artery hypertension.Clinically correlate further.No definite CHF pattern. 2.Limited right lower lobe fibrosis with thickening including partial calcification of right lower lo be pleura.Infrequent scattered calcified granulomata are seen the left greater than right lower lobes.No acute infiltrate s bilaterally. 3.Limited mediastinal lymphadenopathy. 4.Incidental splenomegaly to 16.0 cm. Incidental small cyst a junction of medial right and left lobe s liver ER note includes: Respiratory: Positive for: Decreased Breath Sounds, Rhonchi (diffuse mild ). -Negative for: Respiratory Distress H and P includes: A 62-year-old male with multiple medical problems, who presents with acute on chron ic renal failure, congestive heart failure,cardiac dz, severe dehydration, upper respiratory tract in fection, pneumonia, history of liver transplantation in the past, history of brain tumor in the past, history of poor com pliance to medication and therapy and followup, hyperkalemia presently probably secondary to acute re nal failure and chronic renal failure, failure to thrive. 06/13 Attending: progress note includes:Respiratory: Exam: Decreased Breath Sounds, Prolonged Expirato ry Phase, Rales, Normal breathing pattern Assessment includes: upper respiratory infection--r/o pneumonia O2 via venti mask, Levalbuterol INH RQ8, Rocephin IVPB daily PLEASE DOCUMENT ANY ADDITIONAL DIAGNOSES AND/OR SPECIFICITY IN THE PROGRESS NOTES AND/OR DISCHARGE FELIZ MMARY. Clinically unable to determine/unknown Disagree with the above request Need to discuss Query created by: Carla Nice on 06/20/2018 1:05 PM Electronically signed by: Grey Arriaga MD 06/28/2018 1:45 PM
--- NOTE | 2018-06-28 22:29 | CP.PCM.PN ---
Subjective - Date & Time of Evaluation Date of Evaluation: 06/28/18 Time of Evaluation: 11:00 - Subjective Subjective: No complaints. Objective - Vital Signs/Intake and Output Vital Signs (last 24 hours): Temp Pulse Resp BP Pulse Ox 97.7 F 71 18 97/64 L 98 06/28/18 12:14 06/28/18 12:14 06/28/18 12:14 06/28/18 12:14 06/28/18 12:14 - Labs Labs: 06/21/18 04:25 06/21/18 04:25 PT 12.8 Seconds (9.8-13.1) 06/21/18 04:25 INR 1.1 06/21/18 04:25 APTT 34.6 Seconds (25.6-37.1) 06/21/18 04:25 - Head Exam Head Exam: ATRAUMATIC - Eye Exam Eye Exam: Normal appearance - ENT Exam ENT Exam: Mucous Membranes Dry - Respiratory Exam Respiratory Exam: NORMAL BREATHING PATTERN - Cardiovascular Exam Cardiovascular Exam: +S1, +S2 - GI/Abdominal Exam GI & Abdominal Exam: Normal Bowel Sounds Assessment and Plan (1) Glomus tumor Assessment & Plan: surgical treatment evaluation at tertiary center Status: Acute (2) Anemia Assessment & Plan: anemia of renal disease Status: Acute (3) Thrombocytopenia Assessment & Plan: mild improved Status: Acute
== END 2018-06-28 14:40 | DRG 177 ==
LOC: H.ER 15:14 → H.ERHOLD 22:23 → H.TEL 06-13 03:52
PROVIDERS: ADMIT Internal Medicine Pulmonary Disease; ATTEND Internal Medicine Pulmonary Disease
PROC: 05HN33Z Insertion of Infusion Device into Left Internal Jugular Vein, Percutaneous Approach (ICD-10-PCS; 2018-06-14)
PROC: B544ZZA Ultrasonography of Left Jugular Veins, Guidance (ICD-10-PCS; 2018-06-14)
PROC: 0CJS8ZZ Inspection of Larynx, Via Natural or Artificial Opening Endoscopic (ICD-10-PCS; 2018-06-15)
PROC: 5A1D70Z Performance of Urinary Filtration, Intermittent, Less than 6 Hours Per Day (ICD-10-PCS; 2018-06-16)
PROC: 5A1D70Z Performance of Urinary Filtration, Intermittent, Less than 6 Hours Per Day (ICD-10-PCS; 2018-06-20)
PROC: 5A1D70Z Performance of Urinary Filtration, Intermittent, Less than 6 Hours Per Day (ICD-10-PCS; 2018-06-22)
PROC: 3E0G76Z Introduction of Nutritional Substance into Upper GI, Via Natural or Artificial Opening (ICD-10-PCS; 2018-06-24)
PROC: 0DH63UZ Insertion of Feeding Device into Stomach, Percutaneous Approach (ICD-10-PCS; principal; 2018-06-24 12:00)
PROC: 5A1D70Z Performance of Urinary Filtration, Intermittent, Less than 6 Hours Per Day (ICD-10-PCS; 2018-06-25)
PROC: 5A1D70Z Performance of Urinary Filtration, Intermittent, Less than 6 Hours Per Day (ICD-10-PCS; 2018-06-27)
DX: J69.0 Pneumonitis due to inhalation of food and vomit (principal); I50.43 Acute on chronic combined systolic (congestive) and diastolic (congestive) heart failure; I13.2 Hypertensive heart and chronic kidney disease with heart failure and with stage 5 chronic kidney disease, or end stage renal disease; N17.9 Acute kidney failure, unspecified; N18.5 Chronic kidney disease, stage 5; Z94.4 Liver transplant status; R64 Cachexia; I42.0 Dilated cardiomyopathy; J04.0 Acute laryngitis; D18.09 Hemangioma of other sites; D63.1 Anemia in chronic kidney disease; I48.2 Chronic atrial fibrillation; E87.5 Hyperkalemia; E86.0 Dehydration; R62.7 Adult failure to thrive; D69.6 Thrombocytopenia, unspecified; H92.22 Otorrhagia, left ear; K74.69 Other cirrhosis of liver; I25.10 Atherosclerotic heart disease of native coronary artery without angina pectoris; E78.5 Hyperlipidemia, unspecified; E78.00 Pure hypercholesterolemia, unspecified; H91.8X2 Other specified hearing loss, left ear; M62.81 Muscle weakness (generalized); R13.10 Dysphagia, unspecified; F41.9 Anxiety disorder, unspecified; Z99.2 Dependence on renal dialysis; Z85.841 Personal history of malignant neoplasm of brain; Z91.15 Patient's noncompliance with renal dialysis; Z91.19 Patient's noncompliance with other medical treatment and regimen; Z68.22 Body mass index [BMI] 22.0-22.9, adult; Z86.711 Personal history of pulmonary embolism; Z86.718 Personal history of other venous thrombosis and embolism; Z95.0 Presence of cardiac pacemaker; Z86.19 Personal history of other infectious and parasitic diseases; Z87.01 Personal history of pneumonia (recurrent); Z79.01 Long term (current) use of anticoagulants; Z87.891 Personal history of nicotine dependence; Z74.01 Bed confinement status